=== PATIENT | female | born 1945 | race Hispanic/Latino ===

== ENCOUNTER 2017-05-12 09:13 | Inpatient (IN) | payer MEDICARE, OTHER ==
[2017-05-12] MEDS ORDERED: Acetaminophen 500 MG TAB ONE (09:34)
[2017-05-12] MEDS ORDERED: cefTRIAXone\\ROCEPHIN 2 GM, Admixture Fee 1 EACH in Sodium Chloride 0.9% 100 ML IVPB SCH (09:45)
--- OUTSIDE RECORDS SUMMARY | 2017-05-12 09:48 | XMS | Clinical Summary ---
:1945 Author Organization [facility] Address [address] [place] [address] Phone Care Team Providers Name Role Phone , Primary Care Provider Unavailable Allergies Not on File Current Medications Not on file Active Problems Not on file Social History Tobacco Use Types Packs/Day Years Used Date Never Assessed Sex Assigned at Date Recorded Not on file Last Filed Vital Signs Not on file Plan of Treatment Not on file Results Not on filefrom Last 3 Months
--- NOTE | 2017-05-12 09:50 | RAD ---
FRONTAL RADIOGRAPH CHEST: Date: 05/12/17 COMPARISON: 05/20/16. HISTORY: Dizziness and headache which began this morning. FINDINGS: There is a focal area of relatively dense nodularity overlying the mid right lung zone and the regio n of the anterior aspect of the right 3rd, 4th, and 5th ribs. These may represent new healing/healed rib fractures with prominent callus formation. There is no pneumothorax, pleural fluid, or lobar co nsolidation. There is a prominent superior end plate fracture of T12, not well assessed on this exam. IMPRESSION: 1. No lobar consolidation or alveolar edema. 2. Dense areas of nodularity seen in the mid right lung zone, likely on the basis of new healing/he aled rib fractures with associated prominent callus. As these are new findings, dedicated imaging ad vised to confirm rib fractures. Recommend dedicated right rib series. CODE T. POS: [facility]
[2017-05-12 09:55] LABS: Hematocrit 35.5 % (36.0-47.0); Mean Platelet Volume 9.8 fL (7.4-10.4); Red Blood Cell (RBC) Count 3.72 mill/uL (4.20-5.40); White Blood Cell (WBC) Count 18.4 thou/uL (4.8-10.8)
[2017-05-12 10:13] LABS: ALT (SGPT) 11 U/L (8-55); AST (SGOT) 24 U/L (5-34); Alkaline Phosphatase 53 U/L (40-150); Anion Gap 17 mmol/L (10-20); BUN (Urea Nitrogen) 37 mg/dL (9.8-20.1); Bilirubin, Total 0.7 mg/dL (0.2-1.2); Calc. Creatinine Clearance 0 mL/min (70-130); Calcium 9.3 mg/dL (7.8-10.44); Carbon Dioxide 15 mmol/L (23-31); Chloride 109 mmol/L (98-107); Estimated GFR-MDRD 32; Globulin 2.7 g/dL (2.4-3.5); Protein, Total 6.4 g/dL (6.0-8.3)
[2017-05-12 10:17] LABS: Band 19 % (5-11); Neutrophil 76 % (42-75)
--- NOTE | 2017-05-12 10:41 | CT ---
HEAD CT WITHOUT CONTRAST: 05/12/2017 HISTORY: Headache. Dizziness. TECHNIQUE: Serial axial CT imaging at 5 mm intervals, from the vertex through the skull base, without contrast. FINDINGS: There is mild periventricular hypodensity, suggesting a degree of small vessel disease. The imaged paranasal sinuses and mastoid air cells are well aerated. There is no displaced calvarial fracture. There is atherosclerotic calcification of the cavernous carotid arteries. There is no intracrania l hemorrhage, midline shift, mass effect, or ventricular enlargement. IMPRESSION: Findings suggesting small vessel disease. No intracranial hemorrhage. POS: [facility]
[2017-05-12 10:46] LABS: Lactic Acid - Sepsis 3.1 mmol/L (0.5-2.2)
[2017-05-12 11:02] LABS: Bilirubin Negative (Negative); Blood, Urine Small (Negative); Glucose, Urine (Dipstick) Negative (Negative); Ketone, Urine Negative (Negative); Nitrite Negative (Negative); Protein, Urine (Dipstick) 100 mg/dL (Neg-Trace); Urobilinogen 0.2 mg/dL (0.2-1.0)
[2017-05-12 11:08] LABS: Bacteria/HPF 4+ HPF (None Seen); Hyaline Casts/LPF 0-3 HYALINE CAST LPF (0-3 Hyaline); RBC/HPF 0-3 HPF (0-3); Squamous Epithelial None Seen HPF (0-3)
--- NOTE | 2017-05-12 13:43 | HP ---
PRIMARY CARE PHYSICIAN: Sergio Sen M.D. CHIEF COMPLAINT: Generally not feeling well, tired and having chills. HISTORY OF PRESENT ILLNESS: Ms. Burnett is a pleasant 71-year-old female that has a history of sys temic lupus erythematosus and hypertension. She was in her usual state of health until about 3 week s ago. She says she was diagnosed with urinary tract infection and was placed on 5 days worth of ci profloxacin. She says since then she has been feeling very tired and having diarrhea off and on, bu t she attributes this to irritable bowel syndrome. She also was complaining of a very bad headache and says that she could not even get up this morning. She felt shaky, nauseated and says that she w as coughing a lot. She has a history of having adrenal insufficiency as a result of being on long-t erm steroids and was afraid that this could be happening again and for this reason she came to the e mergency room for evaluation; however, it was found that she has a urinary tract infection or urine consistent with urinary tract infection as well as an elevated white blood cell count and fever and is being admitted for urosepsis. REVIEW OF SYSTEMS: CONSTITUTIONAL: She has had some subjective fever as well as chills, but no nig ht sweats, no weight loss. HEENT: She has had some headache, no dizziness, no visual changes, no s ore throat, rhinorrhea, no neck pain, no adenopathy. PULMONARY: She has had some dry cough, but no shortness of breath, no PND, no orthopnea. GASTROINTESTINAL: She has had some diarrhea off and on as well as some abdominal cramping and nausea, but no vomiting. GENITOURINARY: She denies any dys uria, but has had some urgency. No hematuria. MUSCULOSKELETAL: She complains of some generalized muscle aches. PSYCHIATRIC: No symptoms of anxiety or depression. SKIN/INTEGUMENT: No skin change s. No rash. NEUROLOGIC: She had no seizures or muscle weakness or focal weakness. PAST MEDICAL HISTORY: Significant for systemic lupus erythematosus, hypertension, osteoporosis, his tory of secondary adrenal insufficiency, left kidney mass which is benign and irritable bowel syndro me. PAST SURGICAL HISTORY: She has had a hysterectomy and splenectomy. ALLERGIES: To SULFATE and IRON, which is the IV IRON. SOCIAL HISTORY: She is , has 2 daughters and one son. She is a nonsmoker, nondrinker. FAMILY HISTORY: Significant for coronary artery disease and breast cancer. MEDICATIONS: Include CellCept, prednisone 30 mg daily, Forteo as directed, vitamin D, Plaquenil 200 mg in the morning and 100 in the evening as well as amlodipine and she says 1 other blood pressure medicine. PHYSICAL EXAMINATION: GENERAL: She is alert and oriented. She appears to be in no acute distress. VITAL SIGNS: Blood pressure initially was 153/73, heart rate 105, respiratory rate is 18, and tempe rature was 100.4. HEENT: Her pupils are equal, round, and reactive. Extraocular muscles are intact. Her sclerae are anicteric. Throat no erythema, no exudates. NECK: No adenopathy, no bruits. LUNGS: Clear. There is no wheezing, no rales. CARDIOVASCULAR: She has a normal S1 and S2. There is no S3 or S4. No murmurs, clicks or rubs. ABDOMEN: Soft, it is nontender, and nondistended. Positive for bowel sounds. No rebound, no guard ing. EXTREMITIES: There is no edema. NEUROLOGIC: The exam is nonfocal. LABORATORY DATA: White blood cell count 18.4, hemoglobin 11, hematocrit is 35.5, platelet count is 254. Sodium 137, potassium 3.7, chloride is 109, CO2 is 15, BUN of 37, creatinine 1.6, glucose is 7 9, lactic acid was elevated at 3.1. Urine had small leukocyte esterase, greater than 50 WBCs per hi gh power field and 4+ bacteria. ASSESSMENT AND PLAN: This is a 71-year-old female that presents with generalized weakness, malaise, chills and fever with urine consistent with urinary tract infection. She will be admitted for uros epsis. Since she appears to have failed an outpatient course of ciprofloxacin, she will be placed o n Rocephin. Hopefully, the urine cultures which have been done in the emergency room will yield an organism and aid with guiding therapy. Otherwise, she will likely have to be placed empirically on a different antibiotic regimen if she appears to be clinically improving.
[2017-05-12] MEDS ORDERED: traMADol HCl 50 MG TAB PO PRN (15:12)
[2017-05-12] MEDS ORDERED: Ondansetron HCl/PF 4 MG/2 ML Vial IVP PRN (15:12)
[2017-05-12] MEDS ORDERED: hydrALAZINE 20 MG/ML VIAL SLOW IVP PRN (15:12)
[2017-05-12] MEDS ORDERED: Ondansetron ODT 4 MG TAB PO PRN (15:12)
[2017-05-12 15:32] VITALS: BMI 21.9
[2017-05-12] MEDS ORDERED: Lorazepam 0.5 MG TAB PO PRN (15:37)
[2017-05-12] MEDS: Acetaminophen 325 MG TAB PO PRN ×2 (17:12→21:08)
[2017-05-12] MEDS: Sodium Chloride 0.9% 1,000 ML IV SCH (17:13)
[2017-05-12] MEDS ORDERED: FLU VACC TS2017-18 (>65YR) 0.5 ML SYRINGE IM ONE (21:00)
[2017-05-12] MEDS: Mycophenolate 250 MG CAP PO SCH (21:06)
[2017-05-13] MEDS: Sodium Chloride 0.9% 1,000 ML IV SCH (03:19)
[2017-05-13 05:26] LABS: #Eosinphils 0.1 thou/uL (0.0-0.7); #Lymphocytes 1.4 thou/uL (1.20-3.40); #Neutrophils 10.3 thou/uL (1.40-6.50); %Basophils 0.2 % (0.0-1.0); %Eosinophils 0.5 % (0.0-10.0); %Lymphocytes 10.9 % (21.0-51.0); %Monocytes 7.8 % (0.0-10.0); Hematocrit 33.9 % (36.0-47.0); Mean Platelet Volume 11.4 fL (7.4-10.4); Red Blood Cell (RBC) Count 3.51 mill/uL (4.20-5.40); White Blood Cell (WBC) Count 12.8 thou/uL (4.8-10.8)
[2017-05-13 05:44] LABS: Anion Gap 15 mmol/L (10-20); BUN (Urea Nitrogen) 29 mg/dL (9.8-20.1); Calc. Creatinine Clearance 33 mL/min (70-130); Calcium 8.2 mg/dL (7.8-10.44); Carbon Dioxide 15 mmol/L (23-31); Chloride 115 mmol/L (98-107); Estimated GFR-MDRD 43
[2017-05-13] MEDS: Acetaminophen 325 MG TAB PO PRN ×3 (06:53→21:36)
[2017-05-13] MEDS ORDERED: TERIPARATIDE 20 MCG SC SCH (09:00)
[2017-05-13] MEDS ORDERED: Teriparatide [Forteo] 20 MCG PO SCH ×2 (09:00)
[2017-05-13] MEDS ORDERED: predniSONE 1 MG/ML ML PO SCH (09:00)
[2017-05-13] MEDS ORDERED: Non-Formulary Item 1 EACH (Cholecalciferol (Vitamin D3) [Vitamin D3] 5,000 UNIT) PO SCH (09:00)
[2017-05-13] MEDS: Hydroxychloroquine Sulfate 200 MG TAB PO SCH ×2 (09:11→21:27)
[2017-05-13] MEDS: Famotidine 20 MG TAB PO SCH (09:11)
[2017-05-13] MEDS: Amlodipine 10 MG TAB PO SCH (09:11)
[2017-05-13] MEDS: Enoxaparin Sodium 30 MG/0.3 ML SYRINGE SC SCH (09:12)
[2017-05-13] MEDS: Mycophenolate 250 MG CAP PO SCH ×2 (10:15→21:27)
[2017-05-13] MEDS: predniSONE 1 MG TAB PO SCH (11:17)
[2017-05-13] MEDS: predniSONE 5 MG TAB PO SCH (11:17)
[2017-05-13] MEDS: cefTRIAXone\\ROCEPHIN 2 GM, Admixture Fee 1 EACH in Sodium Chloride 0.9% 100 ML IVPB SCH (12:41)
--- NOTE | 2017-05-13 13:55 | PDOC.PN ---
- Subjective Encounter Start Date: 05/13/17 Encounter Start Time: 10:45 -: old records requested/rev Patient seen and examined. No new complaints. No overnight events - Objective Resuscitation Status: Resuscitation Status FULL:Full Resuscitation MAR Reviewed: Yes Vital Signs & Weight: Vital Signs (12 hours) Temp Pulse Resp BP BP Pulse Ox 05/13/17 11:37 98.2 F 93 16 154/76 H 93 L 05/13/17 09:11 77 149/77 H 05/13/17 07:19 98.3 F 77 16 149/77 H 93 L 05/13/17 04:55 98.2 F 74 18 146/73 H 94 L Weight Admit Weight 108 lb 9.6 oz Weight 108 lb 9.6 oz I&O: 05/12/17 05/13/17 05/14/17 06:59 06:59 06:59 Intake Total 2430 240 Balance 2430 240 Result Diagrams: 05/13/17 04:52 05/13/17 04:52 Phys Exam - Physical Examination Constitutional: NAD HEENT: PERRLA, moist MMs, sclera anicteric Neck: no JVD, supple Respiratory: no wheezing, no rales, no rhonchi Cardiovascular: RRR, no significant murmur, no rub Gastrointestinal: soft, non-tender, no distention, positive bowel sounds Musculoskeletal: no edema, pulses present Neurological: non-focal, normal sensation, moves all 4 limbs Lymphatic: no nodes Psychiatric: normal affect, A&O x 3 Skin: no rash, normal turgor Dx/Plan (1) Acute worsening of stage 3 chronic kidney disease Code(s): N18.3 - CHRONIC KIDNEY DISEASE, STAGE 3 (MODERATE) Status: Acute (2) Lactic acidosis Code(s): E87.2 - ACIDOSIS Status: Acute (3) UTI (urinary tract infection) Status: Acute (4) GERD (gastroesophageal reflux disease) Code(s): K21.9 - GASTRO-ESOPHAGEAL REFLUX DISEASE WITHOUT ESOPHAGITIS Status: Chronic (5) Hyperlipidemia Code(s): E78.5 - HYPERLIPIDEMIA, UNSPECIFIED Status: Chronic (6) Hypertension Code(s): I10 - ESSENTIAL (PRIMARY) HYPERTENSION Status: Chronic (7) SLE (systemic lupus erythematosus) Code(s): M32.9 - SYSTEMIC LUPUS ERYTHEMATOSUS, UNSPECIFIED Status: Chronic - Plan cont current plan of care, continue antibiotics * continue IV rocephin * continue IVF, heplcok IV after current bag * follow urine culture * medication reviewed as below * symptomatic treatment. Review of Systems - Review of Systems ENT: negative: Ear Pain, Ear Discharge, Nose Pain, Nose Discharge, Nose Congestion, Mouth Pain, Mouth Swelling, Throat Pain, Throat Swelling, Other Respiratory: negative: Cough, Dry, Shortness of Breath, Hemoptysis, SOB with Excertion, Pleuritic Pain, Sputum, Wheezing Cardiovascular: negative: Chest Pain, Palpitations, Orthopnea, Paroxysmal Noc. Dyspnea, Edema, Light Headedness, Other Gastrointestinal: negative: Nausea, Vomiting, Abdominal Pain, Diarrhea, Constipation, Melena, Hematochezia, Other Genitourinary: negative: Dysuria, Frequency, Incontinence, Hematuria, Retention , Other Musculoskeletal: negative: Neck Pain, Shoulder Pain, Arm Pain, Back Pain, Hand Pain, Leg Pain, Foot Pain, Other Skin: negative: Rash, Lesions, Surya, Bruising, Other - Medications/Allergies Allergies/Adverse Reactions: Allergies Allergy/AdvReac Type Severity Reaction Status Date / Time iron Allergy Severe Rash Verified 05/23/16 10:45 Sulfa (Sulfonamide Allergy Severe Rash Verified 01/31/14 12:16 Antibiotics) Medications: Current Medications Acetaminophen (Tylenol) 650 mg PO Q4H PRN PRN Reason: Headache/Fever or Pain Last Admin: 05/13/17 06:53 Dose: 650 mg Amlodipine Besylate (Norvasc) 20 mg PO DAILY [facility] Last Admin: 05/13/17 09:11 Dose: 20 mg Aspirin (Aspirin Chewable) 81 mg PO DAILY [facility] Last Admin: 05/13/17 09:11 Dose: 81 mg Calcitriol (Rocaltrol) 0.25 mcg PO MWF@0900 [facility] Cholecalciferol (Vitamin D3) 5,000 units PO DAILY [facility] Last Admin: 05/13/17 09:10 Dose: 5,000 units Enoxaparin Sodium (Lovenox) 30 mg SC 0900 [facility] Last Admin: 05/13/17 09:12 Dose: 30 mg Famotidine (Pepcid) 20 mg PO DAILY [facility] Last Admin: 05/13/17 09:11 Dose: 20 mg Hydralazine HCl (Apresoline) 10 mg SLOW IVP Q4H PRN PRN Reason: Systolic BP > 180 Hydroxychloroquine Sulfate (Plaquenil) 200 mg PO BID [facility] Last Admin: 05/13/17 09:11 Dose: 200 mg Ceftriaxone Sodium 2 gm/Miscellaneous Medication 1 each/ Sodium Chloride 100 mls @ 200 mls/hr IVPB Q24HR@1100 [facility] Last Admin: 05/13/17 12:41 Dose: 100 mls Lorazepam (Ativan) 0.25 mg PO Q4H PRN PRN Reason: Anxiety/Agitation Metoprolol Succinate (Toprol Xl) 25 mg PO DAILY [facility] Last Admin: 05/13/17 09:11 Dose: 25 mg Mycophenolate Mofetil (Cellcept) 1,000 mg PO BID [facility] Last Admin: 05/13/17 10:15 Dose: 1,000 mg Ondansetron HCl (Zofran Odt) 4 mg PO Q6H PRN PRN Reason: Nausea/Vomiting Ondansetron HCl (Zofran) 4 mg IVP Q6H PRN PRN Reason: Nausea/Vomiting Teriparatide [Forteo (] 20 Mcg) 0 each PO DAILY [facility] Prednisone (Prednisone) 10 mg PO DAILY [facility] Last Admin: 05/13/17 11:17 Dose: 10 mg Prednisone (Prednisone) 3 mg PO DAILY [facility] Last Admin: 05/13/17 11:17 Dose: 3 mg Sodium Chloride (Flush - Normal Saline) 10 ml IVF Q12HR [facility] Last Admin: 05/13/17 09:14 Dose: Not Given Sodium Chloride (Flush - Normal Saline) 10 ml IVF PRN PRN PRN Reason: Saline Flush Last Admin: 05/13/17 12:41 Dose: 10 ml Tramadol HCl (Ultram) 50 mg PO Q4H PRN PRN Reason: Moderate Pain (4-6)
[2017-05-14] MEDS: predniSONE 5 MG TAB PO SCH (08:32)
[2017-05-14] MEDS: Famotidine 20 MG TAB PO SCH (08:33)
[2017-05-14] MEDS: predniSONE 1 MG TAB PO SCH (08:33)
[2017-05-14] MEDS: Hydroxychloroquine Sulfate 200 MG TAB PO SCH (08:33)
[2017-05-14] MEDS: Amlodipine 10 MG TAB PO SCH (08:33)
[2017-05-14] MEDS: Mycophenolate 250 MG CAP PO SCH (08:34)
[2017-05-14] MEDS: Enoxaparin Sodium 30 MG/0.3 ML SYRINGE SC SCH (08:35)
[2017-05-14] MEDS ORDERED: Calcitriol 0.25 MCG CAP PO SCH (09:00)
[2017-05-14] MEDS ORDERED: CALCITRIOL 0.25 MCG PO SCH (09:00)
--- NOTE | 2017-05-14 09:55 | PQF ---
CLINICAL DOCUMENTATION IMPROVEMENT CLARIFICATION FORM: ICD-10 Updated PLEASE DO AN ADDENDUM TO THE PROGRESS NOTE WITH ANY DOCUMENTATION UPDATES OR ADDITIONS AND CARRY THROUGH TO DC SUMMARY. THANK YOU. DATE: 05/14 ATTN: DR. ESTEBAN LR Please exercise your independent, professional judgment in responding to the clarification form. Clinical indicators are provided on the bottom of this form for your review Please check appropriate box(s): [ x ] Sepsis due to: (Pna, UTI, gangrenous gall bladder, etc.) _UTI [ ] Localized infection without sepsis [ ] Other diagnosis [ ] Unable to determine For continuity of documentation, please document condition throughout progress notes and discharge summary. Thank You. CLINICAL INDICATORS - SIGNS / SYMPTOMS / LABS ER PRESENTATION 05/12: T: 100.4 NH: 105 WBC: 18.4 LACTIC ACID: 3.1 ER PHYSICIAN DIAGNOSES DOCUMENTATION 05/12: UROSEPSIS, FEVER, STEPHENS, LEUKOCYTOSIS PHYSICIAN H&P DOCUMENTATION 05/12: HX OF PRESENT ILLNESS: ...IT WAS FOUND SHE HAS A UTI OR URINE CONSISTENT WITH UTI WELL ELEVATED WBC COUNT & FEVER & IS BEING ADMITTED FOR UROSEPSIS ASSESSMENT & PLAN: SHE WILL BE ADMITTED FOR UROSEPSIS RISK FACTOR: UTI - E COLI (FAILED OUTPT TREATMENT) ELEVATED WBC LACTIC ACIDOSIS TREATMENTS: IV ANTIBIOTIC (ROCEPHIN 05/12 - PRESENT) IVF (NS 05/12 - ) THANK YOU! Bobbi (This form is maintained as a part of the permanent medical record) 2014 [employer]. All Rights Reserved Bobbi Johnson RN, BSN [email or web address] Office: [phone] [facility]
[2017-05-14 10:01] LABS: Anion Gap 17 mmol/L (10-20); BUN (Urea Nitrogen) 22 mg/dL (9.8-20.1); Calc. Creatinine Clearance 30 mL/min (70-130); Calcium 8.7 mg/dL (7.8-10.44); Carbon Dioxide 15 mmol/L (23-31); Chloride 108 mmol/L (98-107); Estimated GFR-MDRD 38
[2017-05-14 10:14] LABS: Acanthocytes SLIGHT = 1-5 cells (100X) (None Seen); Band 7 % (5-11); Burr Cells MODERATE= 6-15 cells (100X) (0-1/hpf); Hematocrit 35.5 % (36.0-47.0); Metamyelocyte 1 % (0-0); Neutrophil 69 % (42-75); Reactive Lymphocytes 2 % (0-10); Red Blood Cell (RBC) Count 3.73 mill/uL (4.20-5.40); Schistocytes MODERATE= 6-15 cells (100X) (0-1/hpf); White Blood Cell (WBC) Count 9.4 thou/uL (4.8-10.8)
[2017-05-14] MEDS: cefTRIAXone\\ROCEPHIN 2 GM, Admixture Fee 1 EACH in Sodium Chloride 0.9% 100 ML IVPB SCH (10:28)
[2017-05-14] MEDS ORDERED: Potassium Chloride 20 MEQ TAB PO SCH (10:30)
--- NOTE | 2017-05-14 13:01 | DIS ---
DATE OF ADMISSION: 05/12/2017 DATE OF DISCHARGE: 05/14/2017 PRIMARY CARE PHYSICIAN: [facility] call admission. DISCHARGE DISPOSITION: Home. PRIMARY DISCHARGE DIAGNOSES: Acute on chronic kidney failure, baseline chronic kidney disease stage 3, lactic acidosis, sepsis due to urinary tract infection. SECONDARY DISCHARGE DIAGNOSES: Systemic lupus erythematosus, hypertension, secondary adrenal insuff iciency, dyslipidemia, gastroesophageal reflux disease, chronic kidney disease stage 3. PRIMARY PROCEDURE/OPERATION: None. RADIOLOGICAL INVESTIGATION: Chest x-ray, CT brain. SIGNIFICANT LABS: Hemoglobin 11.0, creatinine 1.38. Cortisol 1.90. LFTs normal. Lactic acid 0.8. Urine culture grew E. coli. Blood culture negative. DISCHARGE MEDICATIONS: Macrobid 100 mg p.o. b.i.d. for 10 days, amlodipine 20 mg p.o. daily, aspiri n 81 mg p.o. daily, Excedrin one tablet p.r.n., calcitriol 0.25 mcg p.o. Friday, Friday, Friday, vitamin D3 5000 units p.o. daily, Plaquenil 200 mg p.o. b.i.d., Toprol-XL 25 mg p.o. daily, CellCept 1000 mg p.o. b.i.d., Forteo 20 mcg subQ daily, prednisone 30 mg p.o. daily. CONTRAINDICATIONS: None. CODE STATUS: FULL CODE. INPATIENT CONSULTANTS: None. ALLERGIES: IRON and SULFA DRUGS. DISCHARGE PLAN: Post hospital, the patient is discharged to home. Patient will follow up with [facility] physician. HOSPITAL COURSE: A 71-year-old female who was admitted for urinary tract infection. She had acute on chronic kidney failure. She had lactic acidosis. The patient was given IV fluids. Her renal fu nction was stable. Her leukocytosis improved. Her urine culture grew E. coli and based on culture and sensitivity result, we changed to Omnicef on discharge. The patient was given Rocephin while in hospital. The patient was doing very well while in hospital. She was expressed her wish to go cinda e today. The patient is seen and examined at bedside today. PHYSICAL EXAMINATION: VITAL SIGNS: Currently, temperature 98.3, pulse 88, respiratory rate 16, saturation 94%, blood pres sure 135/76. Weight 108 pounds. GENERAL: The patient is alert, awake, no acute distress. LUNGS: Clear. CARDIAC: S1, S2 regular without any murmur. ABDOMEN: Soft and benign. EXTREMITIES: No edema. NEUROLOGIC: Nonfocal examination.
[2017-05-14 13:20] VITALS: BP 136/72; TEMP 98.2
--- NOTE | 2017-05-24 14:17 | EKG ---
Test Reason : Blood Pressure : / mmHG Vent. Rate : 101 BPM Atrial Rate : 101 BPM P-R Int : 120 ms QRS Dur : 116 ms QT Int : 362 ms P-R-T Axes : 053 072 026 degrees QTc Int : 469 ms Sinus tachycardia Right bundle branch block Abnormal ECG Confirmed by ROBERT DIALLO ([id number]), editorial specialist XAVIER HERNÁNDEZ ([id number]) on 05/24/2017 2:17:00 PM Referred By: Confirmed By:ROBERT DIALLO
== END 2017-05-14 13:42 | disposition home or self-care (01) | DRG 872 ==
LOC: ERS 09:13 → T4-B 11:45
PROVIDERS: ADMIT Internal Medicine; ATTEND Internal Medicine
DX: A41.9 Sepsis, unspecified organism (principal); N17.9 Acute kidney failure, unspecified; E87.2 Acidosis; M32.9 Systemic lupus erythematosus, unspecified; N18.3 Chronic kidney disease, stage 3 (moderate); E27.49 Other adrenocortical insufficiency; N39.0 Urinary tract infection, site not specified; B96.20 Unspecified Escherichia coli [E. coli] as the cause of diseases classified elsewhere; I12.9 Hypertensive chronic kidney disease with stage 1 through stage 4 chronic kidney disease, or unspecified chronic kidney disease; K58.9 Irritable bowel syndrome, unspecified; M81.0 Age-related osteoporosis without current pathological fracture; E78.5 Hyperlipidemia, unspecified; K21.9 Gastro-esophageal reflux disease without esophagitis; N28.89 Other specified disorders of kidney and ureter; Z88.8 Allergy status to other drugs, medicaments and biological substances; Z90.710 Acquired absence of both cervix and uterus; Z90.81 Acquired absence of spleen
CPT/HCPCS: 36415; 51701; 70450; 71010; 80048; 80053; 81003; 81015; 82533; 83605; 85025; 85060; 87040; 87077; 87086; 87186; 90471; 90682; 93005; 96361; 96365; A4216; G0008; J0696; J1650; J7050; J7517; Q2036

== ENCOUNTER 2017-06-06 09:53 | Inpatient (IN) | payer MEDICARE, OTHER ==
[2017-06-06] MEDS ORDERED: Acetaminophen 500 MG TAB ONE (10:10)
--- NOTE | 2017-06-06 10:45 | RAD ---
PORTABLE UPRIGHT FRONTAL CHEST: Date: 06/06/17 COMPARISON: 05/20/16. HISTORY: Fever, bladder infection. FINDINGS: There is a mild focal area of increased density in the left cardiophrenic angle, which may represent a nodule, volume loss, or infiltrate. There is a questionable nodular density in the right upper lobe overlying the anterior aspect of the right third rib. There is also a questionable nodular density in the mid right lung zone, new. IMPRESSION: Nodular densities are noted in the right upper lobe/mid right lung zone region and the medial left osmin ng base. Follow-up imaging is advised. Recommend PA/lateral imaging of the chest for further assessme nt. Alternatively, CT may be beneficial. CODE T. POS: [facility]
[2017-06-06 11:13] LABS: Lactic Acid - Sepsis 3.8 mmol/L (0.5-2.2)
[2017-06-06 11:14] LABS: ALT (SGPT) 12 U/L (8-55); AST (SGOT) 26 U/L (5-34); Alkaline Phosphatase 70 U/L (40-150); Anion Gap 20 mmol/L (10-20); BUN (Urea Nitrogen) 44 mg/dL (9.8-20.1); Band 25 % (5-11); Bilirubin, Total 0.7 mg/dL (0.2-1.2); CK (CPK) 30 U/L (29-168); Calc. Creatinine Clearance 0 mL/min (70-130); Calcium 10.3 mg/dL (7.8-10.44); Carbon Dioxide 16 mmol/L (23-31); Chloride 103 mmol/L (98-107); Crenated RBC SLIGHT = 1-5 cells (100X) (None Seen); Estimated GFR-MDRD 23; Globulin 2.8 g/dL (2.4-3.5); Hematocrit 35.3 % (36.0-47.0); Lipase 218 U/L (8-78); Mean Platelet Volume 10.8 fL (7.4-10.4); Neutrophil 69 % (42-75); Protein, Total 6.9 g/dL (6.0-8.3); Red Blood Cell (RBC) Count 3.68 mill/uL (4.20-5.40); Schistocytes SLIGHT = 2-5 cells (100X) (0-1/hpf); White Blood Cell (WBC) Count 22.3 thou/uL (4.8-10.8)
[2017-06-06 11:18] LABS: Troponin I 0.073 ng/mL (< 0.028)
[2017-06-06 12:29] LABS: Bilirubin Negative (Negative); Blood, Urine Trace (Negative); Glucose, Urine (Dipstick) Negative (Negative); Ketone, Urine Negative (Negative); Nitrite Positive (Negative); Protein, Urine (Dipstick) 100 mg/dL (Neg-Trace); Urobilinogen 0.2 mg/dL (0.2-1.0)
[2017-06-06 12:31] LABS: Bacteria/HPF 4+ HPF (None Seen); Hyaline Casts/LPF 0-3 HYALINE CAST LPF (0-3 Hyaline); RBC/HPF None Seen HPF (0-3); Squamous Epithelial None Seen HPF (0-3); WBC/HPF 21-50 HPF (0-3)
[2017-06-06] MEDS ORDERED: cefTRIAXone\\ROCEPHIN 2 GM in Sodium Chloride 0.9% 100 ML IVPB ONE (12:45)
[2017-06-06 14:00] LABS: Troponin I 0.475 ng/mL (< 0.028)
--- NOTE | 2017-06-06 14:28 | HP ---
CHIEF COMPLAINT: Feeling feverish with chills and having shortness of breath. HISTORY OF PRESENT ILLNESS: The patient is a 71-year-old female who started having some chi lls and she was feeling feverish this morning. She noticed also that she had some shortness of breat h and her heart was racing. She did not have any nausea or vomiting or abdominal pain. She did not have any diarrhea. She called EMS and she was transferred to the Emergency Room in [place] at [facility] where she was found to be very tachycardic in her pulse was in the 160 range and abov e. She required fluid resuscitation to get her tachycardia down to 120s. She had some pains on and off in her body all over, but this is most likely related to her lupus erythematous disease. She had similar admission 3 weeks ago when she was diagnosed with urinary tract infection caused by E. coli, was treated in the hospital for a day and discharged home on Macrobid 100 mg twice a day for 10 day s. She finished her treatment and went to Dr. Sen who is her primary care physician and her urine was checked and it was clear, so she was doing relatively well until this morning when all the probl ems came back. Since her appetite was not that good during this time from the last discharge, she wa s trying to drink some Ensure, a couple of cans a day. Also, she had urinary tract infection in [facility] and she was treated with ciprofloxacin by Dr. Hernandez, her primary urologist. PAST MEDICAL HISTORY: 1. Systemic lupus erythematosus. 2. Hypertension. 3. Osteoporosis. 4. Secondary adrenal insufficiency. 5. Left kidney mass which is benign. 6. Irritable bowel syndrome. 7. History of left ovarian mass. 8. Ulceration of the intestine. PAST SURGICAL HISTORY: 1. Hysterectomy. 2. Splenectomy. 3. Left ovarian mass removal. ALLERGIES: SULFA and IRON. SOCIAL HISTORY: She denies any alcohol drinking, cigarette smoking, use of any illicit drugs. She i s for more than 15 years and she has 2 daughters and a son. FAMILY HISTORY: Her father was 72 when he had a heart attack and he passed, and her mother had breas t cancer and she passed at the age 66. CURRENT MEDICATIONS: Amlodipine 20 mg once a day, Excedrin 1 tablet p.r.n. for the headache, Calcitr iol 0.25 mcg p.o. 3 times a week, vitamin D3 5000 units once a day, Plaquenil 200 mg twice a day, Top rol-XL 20 mg daily, CellCept 1000 mg twice a day, Forteo 20 mcg subcutaneous injections daily, predni sone 19 mg once a day. CODE STATUS: FULL. Surrogate decision maker, Aleta Alves, her daughter. REVIEW OF SYSTEMS: CONSTITUTIONAL: Positive for fever and chills. EYES: Negative for eye pain and eye discharge. ENT: Negative for nasal congestion and epistaxis. Positive for headaches. RESPIRATORY: Positive for some shortness of breath. Negative for cough. CARDIOVASCULAR: Positive for heart palpitations. Negative for chest pain. GASTROINTESTINAL: Positive for some diarrhea on and off since she has irritable bowel syndrome. GENITOURINARY: Positive for several infections in her urinary tract. MUSCULOSKELETAL: Positive for muscle aches and joint pains quite often almost on daily basis. HEME/LYMPHATIC: Positive for some bruising. PSYCHIATRIC: Negative for anxiety or depression. NEUROLOGIC: Negative for seizures and any focal deficits. PHYSICAL EXAMINATION: VITAL SIGNS: Blood pressure is 186/93, pulse is 116, respiratory rate is 22, pulse oximetry is 96% o n room air. HEENT: Head is normocephalic, atraumatic. Her skin is palish. Eyes: Pupils are responding to ligh t properly. Sclerae nonicteric, conjunctivae palish. Oral mucosa is somewhat dry. NECK: Supple, no lymphadenopathy. Thyroid is not palpable. LUNGS: Clear. HEART: S1, S2, tachycardic. No S3, no S4. ABDOMEN: Soft, nontender, bowel sounds are present, no organomegaly. EXTREMITIES: No clubbing, cyanosis or edema. NEUROLOGIC: She is alert and oriented x4. There is not any sensory or motor deficits present. Cran ial nerves are intact. LABORATORY AND X-RAY FINDINGS: Showed white count of 22.3, hemoglobin 11.2, hematocrit 35.3, platele t count is 234, bands 25, sodium 135, potassium 3.8, chloride 103, CO2 16, BUN 44, creatinine 2.16. Lactic acid 3.8, troponin 0.073, lipase 218. The rest of chemistry within normal limits. Urinalysis showed 100 of protein, trace of blood, positive nitrite, small amount of leukocyte esterase, 21-50 W BCs and 4+ bacteria on the scope. The rest of urinalysis within normal limits. Chest x-ray personally reviewed by me. It showed no infiltrates, but there was some nodular densitie s in the right upper and mid lung zone and in the medial left lung base. EKG showed a 12-lead showed sinus tachycardia with 162 beats per minute with no ectopics. There was complete right bundle branc h block. There is ST depression in inferior leads and lateral leads, T-waves are normal, axis is rig ht deviation. IMPRESSION: 1. Sepsis. Most likely urinary tract origin. She had a very similar presentation approximately 3 w eeks ago. Her urine culture grew Escherichia coli. 2. Tachycardia, which was the problem after the discharge from the hospital and she presented with s ignificant tachycardia during this ER evaluation. We will obtain Cardiology consultation for that pu rpose since she was set up to see sexologist on an outpatient basis 3. Acute on chronic renal insufficiency with her creatinine baseline at 1.3. Currently, creatinine is 2.16. 4. Osteoporosis. 5. Immunocompromised status since she is on prednisone and she is status post splenectomy. 6. History of secondary adrenal insufficiency. 7. Left kidney mass which is status post biopsy, benign. 8. Irritable bowel syndrome. 9. History of left ovarian mass, status post removal. 10. Elevated troponin I, most likely secondary to stress on demand secondary to her extreme tachycar elena. 11. Hyponatremia, mild. 12. Elevated lactate, which is most likely secondary to sepsis. This should improve with IV hydrati on and IV antibiotics. PLAN: The plan is to admit her full to IMCU. She is high risk for complications. She received Roce phin and gentamicin in the emergency room. I am going to switch her to meropenem and vancomycin. We will follow up cultures on her urine and blood. She will continue on intravenous fluids. She recei gayla almost 2 liters of IV fluids in the emergency room. She is still tachycardic, but it is signific antly improved. We will treat her with p.o. Tylenol for fever. I am not going to give her any hepa rin since she had a severe thrombocytopenia in the past which required a splenectomy, so we will keep her on SCDs for deep venous thrombosis prophylaxis and H2 lisa for PUD prophylaxis.
[2017-06-06] MEDS ORDERED: Sodium Chloride 0.9% 1,000 ML IV SCH (14:51)
[2017-06-06] MEDS ORDERED: Acetaminophen 325 MG TAB PO PRN (14:51)
[2017-06-06] MEDS ORDERED: hydrALAZINE 20 MG/ML VIAL SLOW IVP PRN (16:29)
[2017-06-06] MEDS ORDERED: Ondansetron HCl/PF 4 MG/2 ML Vial IVP PRN (16:29)
[2017-06-06] MEDS ORDERED: Meropenem 500 MG in Sodium Chloride 0.9% 100 ML IVPB SCH (16:29)
[2017-06-06 16:51] LABS: Troponin I 0.497 ng/mL (< 0.028)
[2017-06-06 17:06] VITALS: BMI 23.2
[2017-06-06] MEDS: Sodium Chloride 0.9% 1,000 ML IV SCH (18:57)
[2017-06-06] MEDS: Meropenem 500 MG, Admixture Fee 1 EACH in Sterile Water 10 ML SLOW IVP SCH (18:58)
[2017-06-06] MEDS ORDERED: FLU VACC TS2017-18 (>65YR) 0.5 ML SYRINGE IM ONE (21:00)
[2017-06-07] MEDS: Meropenem 500 MG, Admixture Fee 1 EACH in Sterile Water 10 ML SLOW IVP SCH ×3 (01:17→16:40)
[2017-06-07] MEDS: Sodium Chloride 0.9% 1,000 ML IV SCH ×3 (03:27→23:15)
[2017-06-07] MEDS: Acetaminophen 325 MG TAB PO PRN ×2 (04:47→13:33)
[2017-06-07 06:23] LABS: Anion Gap 12 mmol/L (10-20); BUN (Urea Nitrogen) 27 mg/dL (9.8-20.1); Calc. Creatinine Clearance 32 mL/min (70-130); Calcium 8.1 mg/dL (7.8-10.44); Carbon Dioxide 18 mmol/L (23-31); Chloride 111 mmol/L (98-107); Estimated GFR-MDRD 40
[2017-06-07 06:29] LABS: Anisocytosis MODERATE=16-30 cells (100X) (0-5/hpf); Band 4 % (5-11); Hematocrit 31.1 % (36.0-47.0); Mean Platelet Volume 11.2 fL (7.4-10.4); Neutrophil 93 % (42-75); Red Blood Cell (RBC) Count 3.17 mill/uL (4.20-5.40); White Blood Cell (WBC) Count 12.1 thou/uL (4.8-10.8)
[2017-06-07] MEDS ORDERED: Heparin 1,000 UNITS/ML VIAL ONE (09:00)
[2017-06-07] MEDS: Famotidine 20 MG TAB PO SCH (09:44)
--- NOTE | 2017-06-07 10:43 | PDOC.PN ---
- Subjective Encounter Start Date: 06/07/17 Encounter Start Time: 10:42 Ms. Burnett was seen today in follow-up of UTI with sepsis. She says she feels a little jose david, but is still very weak, and has a poor appetite. - Objective Resuscitation Status: Resuscitation Status FULL:Full Resuscitation MAR Reviewed: Yes Vital Signs & Weight: Vital Signs (12 hours) Temp Pulse Resp BP Pulse Ox 06/07/17 07:37 97.8 F 95 18 94 L 06/07/17 07:36 97.8 F 95 18 157/75 H 94 L 06/07/17 06:15 98.0 F 102 H 20 159/75 H 92 L 06/06/17 23:35 98.0 F 97 16 149/72 H 93 L Weight Weight 111 lb 8 oz I&O: 06/06/17 06/07/17 06/08/17 06:59 06:59 06:59 Intake Total 1566 Output Total 1400 Balance 166 Result Diagrams: 06/07/17 05:22 06/07/17 05:22 Phys Exam - Physical Examination Respiratory: no wheezing, no rales, no rhonchi, clear to auscultation bilateral Cardiovascular: RRR, no significant murmur Gastrointestinal: soft, non-tender, positive bowel sounds Musculoskeletal: no edema Dx/Plan (1) Sepsis Code(s): A41.9 - SEPSIS, UNSPECIFIED ORGANISM Status: Acute (2) UTI (urinary tract infection) Status: Acute (3) Hypertension Code(s): I10 - ESSENTIAL (PRIMARY) HYPERTENSION Status: Chronic (4) SLE (systemic lupus erythematosus) Code(s): M32.9 - SYSTEMIC LUPUS ERYTHEMATOSUS, UNSPECIFIED Status: Chronic (5) Acute kidney injury Code(s): N17.9 - ACUTE KIDNEY FAILURE, UNSPECIFIED Status: Acute - Plan * UTI with sepsis, and acute kidney failure- patient has improved overnight * Urine culture is growing a gram negative oswaldo- will continue meropenem * She was only recently admitted with a severe UTI - will check a post void residual, and consult ID to help with the choice of the optimum antibiotic * SLE- patient says she had been on Prednisone at 13mg a day, but this has since been increased to 20mg a day * HTN- blood pressure is elevated- will re-start her home medications. * LUIS FELIPE- improving with treatment of UTI
--- NOTE | 2017-06-07 15:51 | CON ---
CARDIOLOGY CONSULTATION DATE OF CONSULTATION: 06/07/2017 REASON FOR CONSULTATION: Elevated troponins. HISTORY OF PRESENT ILLNESS: Ms. Burnett is a very pleasant 71-year-old female, who comes t o the hospital for fever and chills. She was found to be in sepsis, she was tachycardic, had a fever and her tachycardia responded to IV fluids. She was found to have urinary tract infection, which sh e has been battling for at least the last month or so and this is most likely recurrence during her a dmission, troponins were drawn under mildly elevated, so Cardiology is being consulted. In talking w ith Ms. Burnett, she denies any chest pain, any chest pressure, but she admits to little tightness w hen she lays down on her back and gets better when she sits back up. Her breathing also has been a l ittle more difficult lately, on my evaluation today walked into her room and she is lying flat on her back without any discomfort whatsoever. PAST MEDICAL HISTORY: 1. Lupus SLE. She has been dealing with this for the last 15 years. 2. Hypertension. 3. Osteoporosis. 4. Secondary to renal insufficiency. 5. Left kidney mass, benign. 6. Irritable bowel syndrome. 7. Left ovarian mass. 8. History of ulceration in the intestine. 9. History of lupus nephritis. PAST SURGICAL HISTORY: 1. Hysterectomy. 2. Splenectomy. 3. Left ovarian mass removal. OUTPATIENT MEDICATIONS: Include; 1. Amlodipine 10 mg a day. 2. Excedrin p.r.n. 3. Calcitriol. 4. Vitamin D3. 5. Plaquenil 200 mg twice a daily. 6. Toprol-XL 25 mg p.o. daily. 7. CellCept 1000 mg twice a day. 8. Forteo 20 mcg subQ daily. 10. Prednisone 20 mg a day. ALLERGIES: SULFA DRUGS and IRON. SOCIAL HISTORY: No alcohol, tobacco or drugs. FAMILY HISTORY: Father from an [place] at 72. Mother had breast cancer and at 66 . REVIEW OF SYSTEMS: A 12-point review of systems was done and is all negative unless stated in the hi story of present illness. PHYSICAL EXAMINATION: VITAL SIGNS: Temperature 98.0, pulse 102, respiratory rate 18, satting 97% on 2 liters, blood pressu re 155/73. GENERAL: Awake, alert, oriented x3, in no distress. HEENT: Normocephalic, atraumatic. NECK: Supple. LUNGS: Clear. CARDIOVASCULAR: S1, S2, no S3 or S4, no murmurs, no rubs. ABDOMEN: Soft, positive bowel sounds. EXTREMITIES: No edema. SKIN: Warm and dry. LABORATORY WORK: Reviewed. White count of 22 on admission with 25% bands, hemoglobin of 11.2 down t o 9.5 after IV hydration and platelet count of 178. Chemistry with a creatinine of 2.1 on admission, back down to 1.3 with hydration, and sodium and potassium were normal. Troponin was 0.07, 0.47 and 0.49. Lipase was 218 and albumin of 4.1. UA was cloudy with positive nitrites, trace blood, 21-50 w tasha cells, and 4+ bacteria. Urine culture showed gram negative rods so far. Awaiting for sensitivi ties and identification of the bacteria. Chest x-ray shows nodular densities in the right upper lobe, mid right lung zone and in the medial le ft lung base. No heart failure. No infiltrate. EKG was reviewed. ASSESSMENT AND PLAN: 1. Non-ST elevation myocardial infarction: Most likely demand ischemia from her septic type picture . 2. Urinary tract infection. 3. Systemic lupus erythematosus. 4. History of renal nephropathy. PLAN: 1. Continue conservative management for now. Most likely, her elevated troponin is related to her s evere complicated urinary tract infection. 2. We will get an echocardiogram in-house and we will plan on doing an outpatient evaluation with st ress testing once she is over her urinary tract infections. No indication for anticoagulation at thi s time. Thank you for letting us participate in the care of your patient. We will follow.
[2017-06-07] MEDS: Hydroxychloroquine Sulfate 200 MG TAB PO SCH (20:41)
[2017-06-07] MEDS ORDERED: MYCOPHENOLATE MOFETIL 1000 MG PO SCH (21:00)
[2017-06-07] MEDS: Mycophenolate 250 MG CAP PO SCH (23:16)
[2017-06-08] MEDS: Meropenem 500 MG, Admixture Fee 1 EACH in Sterile Water 10 ML SLOW IVP SCH ×2 (00:56→12:34)
[2017-06-08] MEDS: Acetaminophen 325 MG TAB PO PRN (00:56)
[2017-06-08 06:37] LABS: Anion Gap 12 mmol/L (10-20); BUN (Urea Nitrogen) 19 mg/dL (9.8-20.1); Calc. Creatinine Clearance 32 mL/min (70-130); Calcium 7.9 mg/dL (7.8-10.44); Carbon Dioxide 16 mmol/L (23-31); Chloride 110 mmol/L (98-107); Estimated GFR-MDRD 39
[2017-06-08] MEDS: Famotidine 20 MG TAB PO SCH (08:57)
[2017-06-08] MEDS: predniSONE 20 MG TAB PO SCH (08:57)
[2017-06-08] MEDS: Mycophenolate 250 MG CAP PO SCH ×2 (08:58→21:26)
[2017-06-08] MEDS: Hydroxychloroquine Sulfate 200 MG TAB PO SCH ×2 (08:58→21:26)
[2017-06-08] MEDS ORDERED: predniSONE 1 MG TAB PO SCH (09:00)
[2017-06-08] MEDS ORDERED: Teriparatide [Forteo] 20 MCG PO SCH ×2 (09:00)
[2017-06-08] MEDS ORDERED: Amlodipine 10 MG TAB PO SCH (09:00)
[2017-06-08] MEDS ORDERED: TERIPARATIDE 20 MCG SC SCH (09:00)
[2017-06-08] MEDS ORDERED: predniSONE 20 MG TAB PO SCH (09:00)
[2017-06-08] MEDS ORDERED: predniSONE 5 MG TAB PO SCH (09:00)
[2017-06-08] MEDS ORDERED: Loperamide HCl 2 MG CAP PO PRN (09:34)
[2017-06-08] MEDS: Potassium Chloride 10 MEQ TAB PO SCH ×2 (12:34→16:58)
--- NOTE | 2017-06-08 13:06 | PDOC.PN ---
- Subjective Encounter Start Date: 06/08/17 Encounter Start Time: 10:30 Patient seen and examined. No new complaints. No overnight events. No CP/SOB - Objective Resuscitation Status: Resuscitation Status FULL:Full Resuscitation MAR Reviewed: Yes Vital Signs & Weight: Vital Signs (12 hours) Temp Pulse Resp BP BP BP Pulse Ox 06/08/17 09:04 98.6 F 100 18 92 L 06/08/17 08:57 100 179/79 H 06/08/17 08:56 98.6 F 100 18 179/79 H 92 L 06/08/17 04:00 99.2 F 121 H 18 137/75 97 Weight Weight 112 lb 12.8 oz I&O: 06/07/17 06/08/17 06/09/17 06:59 06:59 06:59 Intake Total 1566 2860 Output Total 1400 2650 Balance 166 210 Result Diagrams: 06/07/17 05:22 06/08/17 05:04 EKG Reviewed by me: Yes (Tele SR) Phys Exam - Physical Examination Constitutional: NAD Respiratory: no wheezing, no rhonchi Cardiovascular: RRR, no rub Gastrointestinal: soft, non-tender, positive bowel sounds Musculoskeletal: no edema Neurological: non-focal, moves all 4 limbs Dx/Plan - Plan DVT proph w/SCDs IMPRESSION: 1. Sepsis with acute organ dysfunction due to E coli UTI 2. NSTEMI - due to demand ischemia 3. LUIS FELIPE 4. Hypokalemia 5. SLE on chronic steroids 6. Lactic acidosis PLAN: * Cardiology following * Await Echo/ID input * DC IVF * Replace Potassium * Await Atbx sensitivity * AM labs * Cont other home meds as below Review of Systems - Review of Systems Respiratory: negative: Cough, Dry, Shortness of Breath, Hemoptysis, SOB with Excertion, Pleuritic Pain, Sputum, Wheezing Cardiovascular: negative: Chest Pain, Palpitations, Orthopnea, Paroxysmal Noc. Dyspnea, Edema, Light Headedness Gastrointestinal: negative: Nausea, Vomiting, Abdominal Pain, Diarrhea, Constipation, Melena, Hematochezia - Medications/Allergies Allergies/Adverse Reactions: Allergies Allergy/AdvReac Type Severity Reaction Status Date / Time iron Allergy Severe Rash Verified 06/06/17 17:02 Sulfa (Sulfonamide Allergy Severe Rash Verified 06/06/17 17:02 Antibiotics) Medications: Current Medications Acetaminophen (Tylenol) 650 mg PO Q4H PRN PRN Reason: Headache/Fever or Pain Last Admin: 06/08/17 00:56 Dose: 650 mg Amlodipine Besylate (Norvasc) 10 mg PO DAILY [facility] Calcitriol (Rocaltrol) 0.25 mcg PO MWF@0900 [facility] Famotidine (Pepcid) 20 mg PO DAILY [facility] Last Admin: 06/08/17 08:57 Dose: 20 mg Hydralazine HCl (Apresoline) 10 mg SLOW IVP Q4H PRN PRN Reason: Hypertension Hydroxychloroquine Sulfate (Plaquenil) 200 mg PO BID [facility] Last Admin: 06/08/17 08:58 Dose: 200 mg Meropenem 500 mg/Miscellaneous Medication 1 each/ Sterile Water 10 mls @ 120 mls/hr SLOW IVP 0100,0900,1700 [facility] Last Admin: 06/08/17 12:34 Dose: 10 mls Loperamide HCl (Imodium) 2 mg PO PRN PRN PRN Reason: Diarrhea/Loose Stools Metoprolol Succinate (Toprol Xl) 25 mg PO DAILY [facility] Last Admin: 06/08/17 08:58 Dose: 25 mg Mycophenolate Mofetil (Cellcept) 1,000 mg PO BID [facility] Last Admin: 06/08/17 08:58 Dose: 1,000 mg Ondansetron HCl (Zofran) 4 mg IVP Q6H PRN PRN Reason: Nausea/Vomiting Teriparatide [Forteo (] 20 Mcg) 0 each PO DAILY [facility] Potassium Chloride (Klor-Con 10) 10 meq [address]-[facility] Last Admin: 06/08/17 12:34 Dose: 10 meq Prednisone (Prednisone) 20 mg PO QAM-WM [facility] Last Admin: 06/08/17 08:57 Dose: 20 mg Sodium Chloride (Flush - Normal Saline) 10 ml IVF Q12HR [facility] Last Admin: 06/08/17 08:59 Dose: Not Given Sodium Chloride (Flush - Normal Saline) 10 ml IVF PRN PRN PRN Reason: Saline Flush
[2017-06-08] MEDS ORDERED: cefTRIAXone\\ROCEPHIN 1 GM in Sodium Chloride 0.9% 100 ML IVPB SCH (13:15)
[2017-06-08] MEDS: cefTRIAXone\\ROCEPHIN 1 GM, Syringe 0.4 ML in Sterile Water 9.6 ML SLOW IVP SCH (14:48)
--- NOTE | 2017-06-08 14:50 | PDOC.CTH ---
Cardiology Progress Note - Subjective No new issues. No chest pain, tightness, pressure. - Objective Vital Signs Temp Pulse Resp BP BP BP Pulse Ox 06/08/17 12:04 98.0 F 101 H 20 166/77 H 90 L 06/08/17 09:04 98.6 F 100 18 92 L 06/08/17 08:57 100 179/79 H 06/08/17 08:56 98.6 F 100 18 179/79 H 92 L 06/08/17 04:00 99.2 F 121 H 18 137/75 97 Weight 112 lb 12.8 oz 06/07/17 06/08/17 06/09/17 06:59 06:59 06:59 Intake Total 1566 2860 Output Total 1400 2650 Balance 166 210 - Physical Examination General/Neuro: alert & oriented x3, NAD Neck: no JVD present Lungs: CTA, unlabored respirations Heart: RRR Abdomen: NT/ND Extremities: + edema B (no edema.) - Telemetry Telemetry Rhythm: NSR - Labs Result Diagrams: 06/07/17 05:22 06/08/17 05:04 Troponin/CKMB CK-MB (CK-2) 1.0 ng/mL (0-6.6) 06/06/17 10:14 Troponin I 0.497 ng/mL (< 0.028) H* 06/06/17 16:19 - Assessment/Plan 1. NSTEMI, demand ischemia. 2. UTI 3. SLE 4. Lupus nephropathy PLAN: - Continue conservative management. - Echo pending. - Replace K - Follow up in 1 month post discharge.
--- NOTE | 2017-06-08 16:26 | CON ---
DATE OF CONSULTATION: 06/08/2017 REASON FOR CONSULTATION: Possible UTI. HISTORY OF PRESENT ILLNESS: A 71-year-old with history of systemic lupus erythematosus for the past 14 years when she presented with severe nephritis. The patient received Cytoxan and prednisone, and had a very good response and avoided hemodialysis then and has remained fairly stable with intermitte nt relapses of her nephritis at times. She also has had recurrent episodes of what has been interpre michelle as representing urinary tract infections. One of the episodes about two years ago actually was a ssociated bacteremia with E. coli. The patient had been admitted 3 weeks before when she came in wit h fever. She was given IV antimicrobials and transitioned to oral Macrobid and discharged and then t his time she presented with new onset of chills, some malaise, but no headaches, visual symptoms, sor e throat, odynophagia, or dysphagia, some back pain, but no typical back pain which she associates wi th the autoimmune syndrome. No cough or sputum production or chest pain, no dyspnea, no abdominal pa in until she came to the emergency room when she had an element of urinary retention which required c atheterization. She has chronic joint symptoms which are unchanged. No neurological symptoms. PAST MEDICAL HISTORY: SLE with nephritis with excellent response to Cytoxan in the past, hypertensio n, osteoporosis, benign kidney mass, ovarian mass, intestinal ulcerations. PAST SURGICAL HISTORY: Hysterectomy, splenectomy, ovarian mass removal. ALLERGIES: SULFA. SOCIAL HISTORY: Never a smoker, , lives in [place]. FAMILY HISTORY: Noncontributory. CURRENT MEDICATIONS: Norvasc, Excedrin, calcitriol, vitamin D, Plaquenil, CellCept, Forteo, and pred nisone 5 mg daily, currently receiving meropenem as well. PHYSICAL EXAMINATION: VITAL SIGNS: T-max 98.6, blood pressure 170/79, pulse 100, respirations 18, O2 sat 92%. SKIN: Remarkable for multiple areas of bruising in the skin of the extensor aspect of the upper extr emities. Peripheral IV access. she is voiding spontaneously. No lymphadenopathy. HEENT: Ocular movements are conjugate. Sclerae white. Oral cavity with still quite a few teeth in place. No mucosal abnormalities. NECK: Supple, no jugular venous distention or carotid bruits, no thyromegaly. LUNGS: With symmetric air entry. No crackles or wheezing. HEART: S1, S2, regular rate. No S3 or S4. ABDOMEN: Not distended or tender. No ascites. Question of bladder distention, no organomegaly. EXTREMITIES: No joint inflammatory activity noted. Pulses are 1+ in dorsalis pedis. Moves all extr emities equally. NEUROLOGIC: Plantar responses are flexor. No clonus. Cognitive function appears to be intact. LABORATORY DATA: White cell count 22 and now 12,000, hemoglobin 11 and 9.5, platelets 178, 69% neutr ophils, 25% bands and now 93% neutrophils, 4% bands and creatinine is 2.16 on arrival and 1.35 on the third day. Baseline creatinine lowest encountered was 1.24 a few weeks ago. Urinalysis with 21-50 wbc's. Most recent cultures from 06/06/2017 with E. coli pending susceptibilities, greater than 100, 000 CFUs per mL. Previous E. coli positive urine culture from 05/12/2017 about a month ago with resi stance to quinolones, Bactrim and ampicillin. Imaging studies include a chest x-ray from this admiss ion with nodular densities in right upper lobe and right mid lung zone, those had previously been int erpreted as representing rib fractures with healing in a previous x-ray, but this one, the radiologis t is not so sure about it and abdomen ultrasound from May last year with an atrophic-appearing l eft kidney, mildly distended gallbladder. ASSESSMENT: 1. Systemic lupus erythematosus with previously treated severe nephritis with excellent response to Cytoxan and prednisone treatment. 2. Recurrent episodes of what has been interpreted as representing urinary tract infections, one of them at least had bacteremia associated with it. 3. Recrudescence of chills without localizing symptoms. 4. Possible urinary retention. 5. Abnormal chest x-ray with nodular lesions in the right upper lobe. DISCUSSION: Although urinary tract infection is certainly a possibility here with invasive features associated with urinary retention, we will have to assess the lung findings and the CT of chest, will reimage the abdomen and pelvis as well with a noncontrast study. Evaluate urinary bladder residual and switch her to Rocephin based on the recent susceptibility studies from 05/12/2017. May need a PI CC line placement and treatment for 2 weeks.
--- NOTE | 2017-06-08 17:43 | CT ---
CT CHEST NONCONTRAST CT ABDOMEN AND PELVIS NONCONTRAST 06/08/17 HISTORY: Bladder infection. Fever and abdominal pain. Abnormal chest radiograph. COMPARISON: 05/14/16. FINDINGS: Old healed rib fractures are present bilaterally and likely account for densities on chest radiograph . There is minimal bilateral pleural fluid and bibasilar atelectasis. Scattered scarring is also pres ent. Lungs are hyperinflated. No lobar consolidation or parenchymal lung mass are visible. Lack of contrast limits evaluation of the mediastinum. No bulky adenopathy is apparent. There is calc ification in the arterial structures. Chronic atrophy of the left kidney with dystrophic calcification and lobulation of the superior pole are similar in appearance to the prior exam. Each renal collecting system, ureter, and urinary bladde r are decompressed without stone evident. Lack of contrast limits evaluation for other abnormalities. There is no evidence of bowel obstruction . No free fluid or free air. Scattered diverticula arise from the colon without adjacent inflammation apparent. IMPRESSION: 1. No evidence of lung mass. Abnormality on recent chest radiograph likely represents healing ri b fractures or overlying artifact. 2. COPD. 3. Atherosclerosis. 4. No evidence of bowel obstruction. POS: [facility]
[2017-06-08] MEDS: Sodium Chloride 0.9% 1,000 ML IV SCH (20:19)
[2017-06-09 05:24] LABS: #Lymphocytes 1.3 thou/uL (1.20-3.40); #Monocytes 0.7 thou/uL (0.11-0.59); #Neutrophils 3.4 thou/uL (1.40-6.50); %Basophils 0.1 % (0.0-1.0); %Eosinophils 0.6 % (0.0-10.0); %Lymphocytes 23.6 % (21.0-51.0); %Monocytes 12.3 % (0.0-10.0); Hematocrit 27.6 % (36.0-47.0); Mean Platelet Volume 11.3 fL (7.4-10.4); Red Blood Cell (RBC) Count 2.87 mill/uL (4.20-5.40); White Blood Cell (WBC) Count 5.3 thou/uL (4.8-10.8)
[2017-06-09 05:47] LABS: ALT (SGPT) 10 U/L (8-55); AST (SGOT) 22 U/L (5-34); Alkaline Phosphatase 45 U/L (40-150); Anion Gap 14 mmol/L (10-20); BUN (Urea Nitrogen) 21 mg/dL (9.8-20.1); Bilirubin, Total 0.3 mg/dL (0.2-1.2); Calc. Creatinine Clearance 31 mL/min (70-130); Carbon Dioxide 15 mmol/L (23-31); Chloride 110 mmol/L (98-107); Estimated GFR-MDRD 37; Globulin 2.3 g/dL (2.4-3.5); Magnesium 1.7 mg/dL (1.6-2.6); Phosphorus 2.6 mg/dL (2.3-4.7); Protein, Total 5.2 g/dL (6.0-8.3)
[2017-06-09] MEDS: Guaifenesin DM 100-10/5 ML UDCUP PO PRN ×2 (06:00→20:53)
--- NOTE | 2017-06-09 07:14 | PDOC.CTH ---
Cardiology Progress Note - Subjective She is doing well. Denies any chest pain, tightness, pressure. - Objective Vital Signs Temp Pulse Resp BP Pulse Ox 06/09/17 04:00 98.9 F 88 18 150/71 H 92 L 06/08/17 19:22 98.3 F 98 18 156/74 H 95 Weight 113 lb 06/08/17 06/09/17 06/10/17 06:59 06:59 06:59 Intake Total 2860 1130 Output Total 2650 1560 Balance 210 -430 - Physical Examination General/Neuro: alert & oriented x3, NAD Neck: no JVD present Lungs: unlabored respirations Heart: RRR Abdomen: NT/ND Extremities: other: (no edema,) - Telemetry Telemetry Rhythm: NSR - Labs Result Diagrams: 06/09/17 04:16 06/09/17 04:16 Troponin/CKMB CK-MB (CK-2) 1.0 ng/mL (0-6.6) 06/06/17 10:14 Troponin I 0.497 ng/mL (< 0.028) H* 06/06/17 16:19 - Assessment/Plan 1. NSTEMI, demand ischemia. 2. UTI 3. SLE 4. Lupus nephropathy PLAN: - Continue conservative management. - Echo pending. - Follow up in 1 month post discharge. - November discharge after echo done.
[2017-06-09] MEDS: Famotidine 20 MG TAB PO SCH (07:56)
[2017-06-09] MEDS: predniSONE 20 MG TAB PO SCH (07:56)
[2017-06-09] MEDS: Amlodipine 10 MG TAB PO SCH (07:57)
[2017-06-09] MEDS: Mycophenolate 250 MG CAP PO SCH ×2 (07:57→20:50)
[2017-06-09] MEDS: Hydroxychloroquine Sulfate 200 MG TAB PO SCH ×2 (07:58→20:50)
[2017-06-09] MEDS: Potassium Chloride 10 MEQ TAB PO SCH (07:58)
[2017-06-09] MEDS ORDERED: Calcitriol 0.25 MCG CAP PO SCH (09:00)
[2017-06-09] MEDS ORDERED: CALCITRIOL 0.25 MCG PO SCH (09:00)
[2017-06-09] MEDS: cefTRIAXone\\ROCEPHIN 1 GM, Syringe 0.4 ML in Sterile Water 9.6 ML SLOW IVP SCH (13:38)
--- NOTE | 2017-06-09 18:39 | PDOC.PN ---
- Subjective Encounter Start Date: 06/09/17 Encounter Start Time: 11:00 Patient seen and examined. No new complaints. No overnight events - Objective Resuscitation Status: Resuscitation Status FULL:Full Resuscitation MAR Reviewed: Yes Vital Signs & Weight: Vital Signs (12 hours) Temp Pulse Resp BP BP BP Pulse Ox 06/09/17 16:08 98.1 F 87 16 132/75 94 L 06/09/17 11:21 98.1 F 88 18 134/70 92 L 06/09/17 07:57 86 148/67 H 06/09/17 07:20 98.2 F 86 16 148/67 H 92 L Weight Weight 113 lb I&O: 06/08/17 06/09/17 06/10/17 06:59 06:59 06:59 Intake Total 2860 1130 1520 Output Total 2650 1560 650 Balance 210 -430 870 Result Diagrams: 06/09/17 04:16 06/09/17 04:16 EKG Reviewed by me: Yes (Tele SR) Phys Exam - Physical Examination Constitutional: NAD Respiratory: no wheezing, no rhonchi Cardiovascular: RRR, no rub Gastrointestinal: soft, non-tender, positive bowel sounds Musculoskeletal: no edema Neurological: non-focal, moves all 4 limbs Dx/Plan - Plan DVT proph w/SCDs IMPRESSION: 1. Sepsis with acute organ dysfunction due to E coli UTI - on IV Atbx 2. NSTEMI - due to demand ischemia - Echo normal EF 3. LUIS FELIPE - improving 4. Hypokalemia - on replacement 5. SLE on chronic steroids 6. Lactic acidosis - improving PLAN: * I d/w Dr Phillips who recommeded 2 weeks IV Ceftriaxone * PICC line * Cardiology following * Cont other home meds as below * DC after PICC line and Atbx setup Review of Systems - Review of Systems Respiratory: negative: Cough, Dry, Shortness of Breath, Hemoptysis, SOB with Excertion, Pleuritic Pain, Sputum, Wheezing Cardiovascular: negative: Chest Pain, Palpitations, Orthopnea, Paroxysmal Noc. Dyspnea, Edema, Light Headedness - Medications/Allergies Allergies/Adverse Reactions: Allergies Allergy/AdvReac Type Severity Reaction Status Date / Time iron Allergy Severe Rash Verified 06/06/17 17:02 Sulfa (Sulfonamide Allergy Severe Rash Verified 06/06/17 17:02 Antibiotics) Medications: Current Medications Acetaminophen (Tylenol) 650 mg PO Q4H PRN PRN Reason: Headache/Fever or Pain Last Admin: 06/08/17 00:56 Dose: 650 mg Amlodipine Besylate (Norvasc) 10 mg PO DAILY [facility] Last Admin: 06/09/17 07:57 Dose: 10 mg Calcitriol (Rocaltrol) 0.25 mcg PO MWF@0900 [facility] Last Admin: 06/09/17 07:56 Dose: 0.25 mcg Famotidine (Pepcid) 20 mg PO DAILY [facility] Last Admin: 06/09/17 07:56 Dose: 20 mg Guaifenesin/Dextromethorphan (Robitussin Dm) 15 ml PO Q4H PRN PRN Reason: Cough Last Admin: 06/09/17 06:00 Dose: 15 ml Hydralazine HCl (Apresoline) 10 mg SLOW IVP Q4H PRN PRN Reason: Hypertension Hydroxychloroquine Sulfate (Plaquenil) 200 mg PO BID [facility] Last Admin: 06/09/17 07:58 Dose: 200 mg Ceftriaxone Sodium 1 gm/ (Syringe 0.4 ml/ Sterile Water) 10 mls @ 120 mls/hr SLOW IVP 1400 [facility] Last Admin: 06/09/17 13:38 Dose: 10 mls Loperamide HCl (Imodium) 2 mg PO PRN PRN PRN Reason: Diarrhea/Loose Stools Metoprolol Succinate (Toprol Xl) 25 mg PO DAILY [facility] Last Admin: 06/09/17 07:58 Dose: 25 mg Mycophenolate Mofetil (Cellcept) 1,000 mg PO BID [facility] Last Admin: 06/09/17 07:57 Dose: 1,000 mg Ondansetron HCl (Zofran) 4 mg IVP Q6H PRN PRN Reason: Nausea/Vomiting Prednisone (Prednisone) 20 mg PO QAM-WM [facility] Last Admin: 06/09/17 07:56 Dose: 20 mg Sodium Chloride (Flush - Normal Saline) 10 ml IVF Q12HR [facility] Last Admin: 06/09/17 07:56 Dose: 10 ml Sodium Chloride (Flush - Normal Saline) 10 ml IVF PRN PRN PRN Reason: Saline Flush Last Admin: 06/08/17 14:48 Dose: 10 ml
[2017-06-10 08:21] VITALS: BP 137/72; TEMP 98.1
[2017-06-10] MEDS: Mycophenolate 250 MG CAP PO SCH (08:21)
[2017-06-10] MEDS: Hydroxychloroquine Sulfate 200 MG TAB PO SCH (08:22)
[2017-06-10] MEDS: predniSONE 20 MG TAB PO SCH (08:22)
[2017-06-10] MEDS: Famotidine 20 MG TAB PO SCH (08:22)
[2017-06-10] MEDS: Amlodipine 10 MG TAB PO SCH (08:22)
--- NOTE | 2017-06-10 09:24 | SPC ---
ULTRASOUND GUIDED LEFT UPPER EXTREMITY PICC LINE PLACEMENT: Date: 06-10-17 History: UTI. Patient needs long-term IV antibiotics. Fluoroscopy: Total time 0.1 minutes with total dose of 228 mGy*cm^2. Technique: After informed consent was obtained, the patient was placed on the angiographic table in supine posit ion. The left upper extremity was meticiously prepped and draped in the usual sterile fashion. An ana ropriate access site was determined with ultrasound guidance. Skin and subcutaneous tissues were infiltrated with buffered 1% Lidocaine for local anesthesia at the intended puncture site. The left basilic vein was accessed utilizing micropuncture technique and con current real-time ultrasound guidance. A 5 Mont[place]grin peel-away sheath was placed. Catheter was measured and cut to the appropriate length. Catheter was placed over the guidewire with tip positioned overlyi ng the cavoatrial junction. Guidewire and peel-away sheath were removed. Catheter was accessed and as pirated/flushed easily. Dry sterile dressing was placed. FINDINGS: Technically successful placement of a single lumen 5 [place]enegrin 38.5 cm PICC line via the left basilic ve in. Tip of the catheter overlies the cavoatrial junction. IMPRESSION: Technically successful left upper extremity PICC line placement. POS: [facility]
[2017-06-10] MEDS: cefTRIAXone\\ROCEPHIN 1 GM, Syringe 0.4 ML in Sterile Water 9.6 ML SLOW IVP SCH (10:58)
--- NOTE | 2017-06-10 16:48 | PDOC.EVN ---
Event Note - Event Note Event Note: Patient seen and examined. Discharge summary dictated. Total time coordinating discharge was 32 min
--- NOTE | 2017-06-10 17:06 | DIS ---
DATE OF DISCHARGE: 06/10/2017 DISCHARGE DISPOSITION: Home with home health care through [facility]. ALLERGIES: IRON AND SULFA. FOLLOWUP: With Dr. Sen in 1 week. Follow up with Dr. Siu in 3-4 weeks. The patient was seen and examined on the day of discharge. Denies any new complaints. DISCHARGE MEDICATIONS: IV ceftriaxone 1 gram daily for the next [address] Phillips. OTHER DISCHARGE MEDICATIONS: Amlodipine 10 mg daily, calcitriol 0.25 mcg Friday , Friday, Friday, vitamin D3 5000 units daily, cranberry with vitamin C 1 capsule daily, Plaquenil 200 mg b.i.d., loperamide as needed, Toprol-XL 25 mg daily, CellCept 1000 mg b.i.d., prednisone 20 mg daily, teriparatide 20 mcg daily. INPATIENT CONSULTANTS: 1. Infectious Disease, Dr. Phillips. 2. Cardiology, Dr. Siu INPATIENT PROCEDURES: 10/06/2017, patient underwent PICC line placement. BRIEF HOSPITAL COURSE: The patient is a 71-year-old female with systemic lupus erythematosus and recurrent urinary tract infection, presented to the hospital with fever, chills with shortness of breath. Please refer to the history and physical dated 06/06/2017 for further details. The patient was admitted to the hospital with a diagnosis of sepsis with acute organ dysfunction secondary to Escherichia coli urinary tract infection. She was started on broad spectrum antibiotics that has been changed to IV ceftriaxone. She will continue with ceftriaxone for [address] Phillips' . On admission, patient had shortness of breath with elevated troponins. The maximum troponin was 0.497. The patient was seen by Cardiology, Dr. Siu. Echocardiogram showed left ventricular ejection fraction of 55%-60% with grade I of III diastolic dysfunction. Her troponin elevation was probably secondary to sepsis per Cardiology, Dr. Siu. She has been cleared by Cardiology for discharge. FINAL DIAGNOSES: 1. Sepsis with acute organ dysfunction secondary to Escherichia coli urinary tract infection. 2. Non-ST elevation myocardial infarction secondary to demand ischemia. Echocardiogram showed normal left ventricular ejection fraction. 3. Acute kidney injury with maximum creatinine 2.16, improved. 4. Chronic kidney disease stage 3. 5. Hypokalemia, corrected. 6. Hypoalbuminemia/mild protein calorie malnutrition. 7. Abnormal troponins secondary to demand ischemia. 8. History of lupus nephropathy. 9. Systemic lupus erythematosus, on chronic steroids. 10. Lactic acidosis on admission, resolved. Maximum Lactic acid on admission was 3.8. Plan of care was discussed with the patient. She stated understanding. Patient refused Aspirin due to peptic ulcer disease in the past. KADEN
--- NOTE | 2017-06-10 18:06 | PDOC.CTH ---
Cardiology Progress Note - Subjective This is a late entry. Pt seen in the morning. She is doing well. We discussed echo results. Normal LV function. Her CT chest showed coronary calcifications so we need to make sure her CAD is not ischemic with stress testing once her infection is better. - Objective Vital Signs Temp Pulse Resp BP BP Pulse Ox 06/10/17 08:22 86 137/72 06/10/17 08:20 98.1 F 86 18 96 06/10/17 08:17 98.1 F 86 18 137/72 96 Weight 113 lb 06/09/17 06/10/17 06/11/17 06:59 06:59 06:59 Intake Total 1130 2000 Output Total 1560 1250 Balance -430 750 - Physical Examination General/Neuro: alert & oriented x3, NAD Neck: no JVD present Lungs: unlabored respirations Heart: RRR Abdomen: NT/ND Extremities: other: (no edema.) - Telemetry Telemetry Rhythm: NSR - Labs Result Diagrams: 06/09/17 04:16 06/09/17 04:16 Troponin/CKMB CK-MB (CK-2) 1.0 ng/mL (0-6.6) 06/06/17 10:14 Troponin I 0.497 ng/mL (< 0.028) H* 06/06/17 16:19 - Assessment/Plan 1. NSTEMI, demand ischemia. 2. UTI 3. SLE 4. Lupus nephropathy 5. CAD. PLAN: - Continue conservative management. - Follow up in 1 month post discharge.
[2017-06-11 16:14] LABS: CMV log 10 Quant 3.945 (.)
== END 2017-06-10 11:22 | disposition home health service (06) | DRG 871 ==
LOC: ERS 09:53 → 2NO 14:23
PROVIDERS: ADMIT Internal Medicine; ATTEND Internal Medicine
PROC: 02HV33Z Insertion of Infusion Device into Superior Vena Cava, Percutaneous Approach (ICD-10-PCS; principal; 2017-06-10)
DX: A41.51 Sepsis due to Escherichia coli [E. coli] (principal); I21.A1 Myocardial infarction type 2; N17.9 Acute kidney failure, unspecified; E87.2 Acidosis; M32.9 Systemic lupus erythematosus, unspecified; N18.3 Chronic kidney disease, stage 3 (moderate); E44.1 Mild protein-calorie malnutrition; E87.1 Hypo-osmolality and hyponatremia; N39.0 Urinary tract infection, site not specified; M81.0 Age-related osteoporosis without current pathological fracture; K58.9 Irritable bowel syndrome, unspecified; E87.6 Hypokalemia; E88.09 Other disorders of plasma-protein metabolism, not elsewhere classified; I25.10 Atherosclerotic heart disease of native coronary artery without angina pectoris; I12.9 Hypertensive chronic kidney disease with stage 1 through stage 4 chronic kidney disease, or unspecified chronic kidney disease; R65.20 Severe sepsis without septic shock; Z68.22 Body mass index [BMI] 22.0-22.9, adult; Z88.2 Allergy status to sulfonamides; Z91.09 Other allergy status, other than to drugs and biological substances; Z79.52 Long term (current) use of systemic steroids; Z82.49 Family history of ischemic heart disease and other diseases of the circulatory system; Z80.3 Family history of malignant neoplasm of breast
CPT/HCPCS: 36415; 36569; 71010; 71250; 74177; 80048; 80053; 81003; 81015; 82553; 83605; 83690; 83735; 84100; 84484; 85025; 87077; 87086; 87186; 87497; 87899; 93005; 93306; 96361; 96365; 96366; 96367; 96368; A4216; A4353; C1751; J0696; J1580; J1644; J2185; J3370; J7050; J7506; J7517

== ENCOUNTER 2017-08-09 20:22 | Inpatient (IN) | payer MEDICARE, OTHER ==
--- NOTE | 2017-08-09 21:00 | RAD ---
EXAM: ONE VIEW CHEST 08/09/17 COMPARISON: 06/06/17 FINDINGS: Dyspnea. Portable upright chest demonstrates a normal cardiac silhouette. There is atherosclerosis of the aort a. Lungs are hyperinflated. Multiple pleural based densities are redemonstrated. No masses or consoli dation. No pneumothorax or osseous abnormalities. Chronic change in the left lung base are noted. IMPRESSION: Atherosclerosis. No acute cardiopulmonary process. POS: [facility]
[2017-08-09 21:19] LABS: Hemoglobin 10.4 g/dL (12.0-16.0); Lymphocytes 2 % (21-51); MDiff Complete? YES; Mean Corpuscular HGB CONC 30.7 g/dL (32.0-36.0); Mean Corpuscular Hemoglobin 27.7 pg (27.0-31.0); Mean Corpuscular Volume 90.1 fl (81.0-99.0); Mean Platelet Volume 9.6 fL (7.4-10.4); Monocytes 2 % (0-10); Neutrophil 96 % (42-75); Platelet Count 238 thou/uL (130-400); RBC Distribution Width 14.5 % (11.5-14.5); Red Blood Cell (RBC) Count 3.75 mill/uL (4.20-5.40); White Blood Cell (WBC) Count 10.8 thou/uL (4.8-10.8)
[2017-08-09 21:21] LABS: CKMB 1.2 ng/mL (0-6.6); Troponin I 0.018 ng/mL (< 0.028)
[2017-08-09 21:22] LABS: ALT (SGPT) 10 U/L (8-55); AST (SGOT) 17 U/L (5-34); Albumin 3.6 g/dL (3.4-4.8); Alkaline Phosphatase 78 U/L (40-150); Anion Gap 20 mmol/L (10-20); BUN (Urea Nitrogen) 47 mg/dL (9.8-20.1); Bilirubin, Total 0.4 mg/dL (0.2-1.2); Calc. Creatinine Clearance 0 mL/min (70-130); Calcium 8.7 mg/dL (7.8-10.44); Carbon Dioxide 16 mmol/L (23-31); Chloride 99 mmol/L (98-107); Estimated GFR-MDRD 21; Globulin 2.5 g/dL (2.4-3.5); Glucose 116 mg/dL (80-115); Potassium 4.7 mmol/L (3.5-5.1); Protein, Total 6.1 g/dL (6.0-8.3); Sodium 130 mmol/L (136-145)
[2017-08-09] MEDS ORDERED: Senokot 8.6 MG TAB PO PRN (23:36)
[2017-08-09] MEDS ORDERED: Sodium Chloride 0.65% Nasal 44 ML BOT EA NARE PRN (23:36)
[2017-08-09] MEDS ORDERED: Sodium Chloride 0.9% 1,000 ML IV SCH (23:36)
[2017-08-09] MEDS ORDERED: Mag-Al 1200 mg/1200 mg/30 ML UDCUP PO PRN (23:36)
[2017-08-09] MEDS ORDERED: HYDROcodone/Acetaminophen 5/325 mg Tablet PO PRN (23:36)
[2017-08-09] MEDS ORDERED: Diabetic Tussin 200 MG/10 ML UDCUP PO PRN (23:36)
[2017-08-09] MEDS ORDERED: Chloraseptic Spray 180 ml Bottle PO PRN (23:36)
[2017-08-09] MEDS ORDERED: Artificial Tears 18 DROP/0.9 ML EA EYE PRN (23:36)
[2017-08-09] MEDS ORDERED: cloNIDine 0.1 MG TAB PO PRN (23:36)
[2017-08-09] MEDS ORDERED: Ondansetron ODT 4 MG TAB PO PRN (23:36)
[2017-08-09] MEDS ORDERED: hydrALAZINE 20 MG/ML VIAL SLOW IVP PRN (23:36)
[2017-08-09] MEDS ORDERED: Eucerin (Mineral Oil/Petrolatum,White) 30 gm Jar TOP PRN (23:36)
[2017-08-09] MEDS ORDERED: Loratadine 10 MG TAB PO PRN (23:36)
[2017-08-09] MEDS ORDERED: Milk Of Magnesia 30 ML UDCUP PO PRN (23:36)
[2017-08-09] MEDS ORDERED: Zolpidem Tartrate 5 MG TAB PO PRN (23:36)
[2017-08-10] MEDS: Ondansetron HCl/PF 4 MG/2 ML Vial IVP PRN ×2 (00:11→07:51)
--- NOTE | 2017-08-10 03:13 | HP ---
DATE OF SERVICE: 08/09/2017 PRIMARY CARE PHYSICIAN: Dr. Sergio Sen. REASON FOR ADMISSION: Acute on chronic kidney failure, mild dehydration, normal anion gap, acidosis, hyponatremia. HISTORY OF PRESENT ILLNESS: A 71-year-old female who went to [facility] with complaint of dizziness, generalized weakness, epigastric, and upper abdominal pain. The patient also reports that lately she was having more diarrhea than usual. She was feeling dizzy, lightheaded and very weak. She was not feeling normal. She did not have any fever or any flu-like symptoms. She denies any UTI symptoms. She denies any melena or hematochezia. She denies any nausea, vomiting. She denies any weight loss. She denies any fever or chills. With these symptoms, she presented to the emergency room. Patient has underlying history of adrenal insufficiency and she is taking steroids. She is dependent on steroid. She is taking Imodium p.r.n. basis for her chronic diarrhea. The patient is following Nephrology, Cardiology, and endocrinology as well as Rheumatology as an outpatient basis. REVIEW OF SYSTEMS: The following complete review of systems was negative, unless otherwise mentioned in the HPI or below: Constitutional: Weight loss or gain, ability to conduct usual activities. Skin: Rash, itching. Eyes: Double vision, pain. ENT/Mouth: Nose bleeding, neck stiffness, pain, tenderness. Cardiovascular: Palpitations, dyspnea on exertion, orthopnea. Respiratory: Shortness of breath, wheezing, cough, hemoptysis, fever or night sweats. Gastrointestinal: Poor appetite, abdominal pain, heartburn, nausea, vomiting, constipation, or diarrhea. Genitourinary: Urgency, frequency, dysuria, nocturia. Musculoskeletal: Pain, swelling. Neurologic/Psychiatric: Anxiety, depression. Allergy/Immunologic: Skin rash, bleeding tendency. Please see my HPI for pertinent positives and negatives. All other review of system reviewed and negative except as mentioned in the HPI. PAST MEDICAL HISTORY: Systemic lupus erythematosus, hypertension, osteoporosis secondary adrenal insufficiency, history of benign left kidney tumor, irritable bowel syndrome, history of left ovarian mass. PAST SURGICAL HISTORY: Hysterectomy, splenectomy, left ovarian mass removed. Cataract surgery, bilateral. PAST PSYCHIATRIC HISTORY: Reviewed and negative. SOCIAL HISTORY: Patient lives at home. She is . She has two daughter and son. No history of tobacco, alcohol, or illicit drug abuse. ALLERGIES: SULFA DRUGS AND IRON. FAMILY HISTORY: Father by age of 72 from heart attack. Mother was diagnosed with breast cancer and by age of 66. CURRENT HOME MEDICATIONS: Prednisone 10 mg twice daily, Lasix 20 mg every other day, metoprolol succinate 50 mg p.o. daily, Plaquenil 300 mg p.o. daily, calcitriol 0.25 mcg Friday, Friday, Friday, CellCept 1000 mg twice daily. EMERGENCY ROOM COURSE: Patient is given IV fluid. PHYSICAL EXAMINATION: VITAL SIGNS: On arrival, blood pressure 114/61, pulse 78, respiratory rate 20, saturation 96% on room air, weight 45.8 kilograms. GENERAL: Patient is currently alert, awake, no obvious acute distress. HEENT: Normocephalic, atraumatic. Eyes: Pupils are round, reactive to light. Extraocular muscles intact. ENT: Oropharynx within normal limits. Moist mucous membranes. No oral lesions. No pharyngeal erythema, no exudate. Patient does have mild oral thrush. NECK: Supple, no JVD, no thyromegaly, no carotid bruit, no meningeal signs of irritation. LUNGS: Clear to auscultation without any rhonchi or rales. CARDIAC: S1, S2 regular without any murmur. ABDOMEN: Soft. Bowel sounds present. Right upper quadrant and epigastric abdominal discomfort noted, but no Goldberg's sign. No organomegaly, no distention. Bowel sounds present. No suprapubic tenderness. BACK: Unremarkable, no CVA tenderness. EXTREMITIES: Upper extremity passive movement of all joints are normal. Lower extremity edema noted. Good distal pulsation. SKIN: No skin rash. HEMATOLOGICAL: No lymphadenopathy. PSYCHIATRIC: Normal affect. SIGNIFICANT LABS: EKG based on my review, complete right bundle branch block pattern. Chest x-ray based on my review, no acute cardiopulmonary process. CBC : WBC 10.8, hemoglobin 10.4, platelets 238. BMP: Sodium 130, potassium 4.7, chloride 99, carbon dioxide 16, anion gap 20, BUN 47, creatinine 2.35, glucose 116, calcium 8.7. Lactic acid 1.0. LFT: AST is 17, ALT 10, alkaline phosphatase 78, albumin 3.6, CK-MB 1.2, troponin I 0.018. BNP 72.9. Chest x- ray based on my review, no acute cardiopulmonary process. ASSESSMENT AND PLAN: IMPRESSION: 1. Acute on chronic kidney failure. Baseline chronic kidney disease stage 3, likely due to prerenal etiology secondary to diarrhea. Patient will be given 1 liter of IV fluid and will repeat BMP tomorrow. 2. Mild dehydration. As mentioned above. Patient will be given IV fluid and we will repeat BMP tomorrow. 3. Normal anion gap metabolic acidosis likely due to diarrhea. We will start sodium bicarbonate 650 mg p.o. b.i.d. 4. Hyponatremia likely due to dehydration. We will repeat BMP tomorrow after NS given. 5. Normocytic normochromic anemia likely due to chronic disease. 6. Systemic lupus erythematosus. Continue prednisone 10 mg p.o. b.i.d., CellCept 1000 mg p.o. b.i.d., Plaquenil 300 mg p.o. daily. 7. Osteoporosis. Continue Calcitriol 0.25 mcg p.o. on Friday, Friday, and Friday. 8. Secondary adrenal insufficiency checked. Random cortisol tomorrow. 9. Right upper quadrant abdominal pain. We will check ultrasound right upper quadrant to rule out any gallbladder pathology. 10. Hypertension. If blood pressure permits, then we will continue Toprol-XL 50 mg p.o. daily. 11. Irritable bowel syndrome. We will continue with the Imodium p.r.n. basis. 12. Deep venous thrombosis prophylaxis not needed because we are expecting discharge in 24 hours. 13. Gastrointestinal prophylaxis, Protonix 40 mg p.o. daily. CODE STATUS: Patient is FULL CODE. Patient's daughter is surrogate decision maker. Disposition plan based on clinical course, likely 24-hours. Plan of care discussed with the patient in detail. [facility]
[2017-08-10 04:21] LABS: #Monocytes 0.6 thou/uL (0.11-0.59); %Basophils 0.1 % (0.0-1.0); %Eosinophils 0.1 % (0.0-10.0); %Lymphocytes 8.7 % (21.0-51.0); %Monocytes 5.1 % (0.0-10.0); %Neutrophils 85.9 % (42.0-75.0); Hemoglobin 10.4 g/dL (12.0-16.0); Mean Corpuscular HGB CONC 31.7 g/dL (32.0-36.0); Mean Corpuscular Hemoglobin 29.6 pg (27.0-31.0); Mean Corpuscular Volume 93.5 fl (81.0-99.0); Mean Platelet Volume 11.5 fL (7.4-10.4); Platelet Count 237 thou/uL (130-400); Red Blood Cell (RBC) Count 3.51 mill/uL (4.20-5.40); White Blood Cell (WBC) Count 11.7 thou/uL (4.8-10.8)
[2017-08-10 04:30] LABS: Albumin 3.3 g/dL (3.4-4.8); Anion Gap 14 mmol/L (10-20); BUN (Urea Nitrogen) 43 mg/dL (9.8-20.1); Calc. Creatinine Clearance 9 mL/min (70-130); Calcium 8.4 mg/dL (7.8-10.44); Carbon Dioxide 19 mmol/L (23-31); Chloride 102 mmol/L (98-107); Estimated GFR-MDRD 26; Glucose 91 mg/dL (80-115); Phosphorus 4.2 mg/dL (2.3-4.7); Potassium 4.2 mmol/L (3.5-5.1); Sodium 131 mmol/L (136-145)
[2017-08-10] MEDS: Sodium Bicarbonate Tab 325 MG TAB PO SCH ×2 (07:52→20:49)
[2017-08-10] MEDS: predniSONE 20 MG TAB PO SCH ×2 (07:53→16:46)
[2017-08-10] MEDS: Hydroxychloroquine Sulfate 200 MG TAB PO SCH (07:53)
[2017-08-10] MEDS: Mycophenolate 250 MG CAP PO SCH ×2 (07:53→20:48)
--- NOTE | 2017-08-10 09:01 | ULT ---
RIGHT UPPER QUADRANT ULTRASOUND: Date: 08/10/17 HISTORY: Abdominal pain. TECHNIQUE: Multiple longitudinal and transverse images of the right upper quadrant of the abdomen obtained using a multihertz curvilinear transducer. Real-time, color flow, and spectral waveform Doppler analysis o btained. FINDINGS: The liver is unremarkable. No evidence of hepatic parenchymal masses or lesions seen. The gallbladder is unremarkable with no evidence of gallstones seen. No evidence of gallbladder wall thickening is s een. Common bile duct is of normal size measuring 3.2 mm. The right kidney is of normal size, measuring 10.2 cm. There is no evidence of hydronephrosis. There does appear to be some slight increased echogenicity compatible with some chronic medical renal disea se. Correlate with clinical exam and laboratory findings. The pancreas is not adequately visualized due to overlying bowel gas. IMPRESSION: 1. Slightly hyperechoic renal parenchyma. 2. No evidence of gallstones. 3. Normal hepatopetal flow seen in the portal system. POS: [facility]
--- NOTE | 2017-08-10 10:06 | PDOC.PN ---
- Subjective Encounter Start Date: 08/10/17 Encounter Start Time: 09:45 Subjective: i feel a little better, have an appetite - Objective Resuscitation Status: Resuscitation Status FULL:Full Resuscitation MAR Reviewed: Yes Vital Signs & Weight: Vital Signs (12 hours) Temp Pulse Resp BP Pulse Ox 08/10/17 08:29 98.5 F 75 14 134/75 92 L 08/10/17 04:00 98.2 F 79 18 147/70 H 92 L 08/10/17 02:31 95 08/09/17 23:40 97.8 F 74 18 146/76 H 97 Weight Weight 45 lb 8 oz I&O: 08/09/17 08/10/17 08/11/17 06:59 06:59 06:59 Intake Total 1100 Balance 1100 Result Diagrams: 08/10/17 03:27 08/10/17 03:27 Phys Exam - Physical Examination Constitutional: NAD HEENT: PERRLA, moist MMs, sclera anicteric candidiasis orally Neck: supple, full ROM Respiratory: no wheezing, clear to auscultation bilateral Cardiovascular: RRR Gastrointestinal: soft, non-tender Musculoskeletal: no edema, pulses present Neurological: non-focal, moves all 4 limbs Psychiatric: normal affect, A&O x 3 Dx/Plan (1) Acute kidney injury Code(s): N17.9 - ACUTE KIDNEY FAILURE, UNSPECIFIED Status: Acute (2) Acute worsening of stage 3 chronic kidney disease Code(s): N18.3 - CHRONIC KIDNEY DISEASE, STAGE 3 (MODERATE) Status: Acute (3) Hypertension Code(s): I10 - ESSENTIAL (PRIMARY) HYPERTENSION Status: Chronic (4) SLE (systemic lupus erythematosus) Code(s): M32.9 - SYSTEMIC LUPUS ERYTHEMATOSUS, UNSPECIFIED Status: Chronic (5) Hyponatremia Code(s): E87.1 - HYPO-OSMOLALITY AND HYPONATREMIA Status: Acute - Plan cont current plan of care continue fluid resuscitation * .
[2017-08-10] MEDS: Loperamide HCl 2 MG CAP PO PRN (13:03)
[2017-08-10] MEDS: Acetaminophen 325 MG TAB PO PRN (16:46)
[2017-08-10] MEDS ORDERED: Nystatin 500,000 UNITS/5 ML UDCUP SSW SCH (23:00)
[2017-08-11] MEDS: Loperamide HCl 2 MG CAP PO PRN ×3 (01:42→21:29)
[2017-08-11 04:30] LABS: Anion Gap 12 mmol/L (10-20); BUN (Urea Nitrogen) 30 mg/dL (9.8-20.1); Calc. Creatinine Clearance 11 mL/min (70-130); Calcium 7.7 mg/dL (7.8-10.44); Carbon Dioxide 18 mmol/L (23-31); Chloride 105 mmol/L (98-107); Estimated GFR-MDRD 33; Glucose 86 mg/dL (80-115); Sodium 131 mmol/L (136-145)
[2017-08-11] MEDS: Acetaminophen 325 MG TAB PO PRN ×2 (04:30→17:13)
[2017-08-11] MEDS: Sodium Bicarbonate Tab 325 MG TAB PO SCH ×2 (08:07→21:29)
[2017-08-11] MEDS: Hydroxychloroquine Sulfate 200 MG TAB PO SCH (08:08)
[2017-08-11] MEDS: predniSONE 20 MG TAB PO SCH ×2 (08:08→17:08)
[2017-08-11] MEDS: Calcitriol 0.25 MCG CAP PO SCH (08:08)
[2017-08-11] MEDS: Nystatin 500,000 UNITS/5 ML UDCUP SSW SCH ×4 (08:09→23:55)
[2017-08-11] MEDS: Mycophenolate 250 MG CAP PO SCH ×2 (08:09→21:29)
[2017-08-11] MEDS ORDERED: Fluconazole 100 MG TAB PO SCH (12:59)
[2017-08-11] MEDS: Sodium Chloride 0.9% 1,000 ML IV SCH ×2 (13:44→23:55)
[2017-08-11] MEDS: Fluconazole 100 MG TAB PO SCH (13:44)
--- NOTE | 2017-08-11 15:38 | PDOC.PN ---
- Subjective Encounter Start Date: 08/11/17 Encounter Start Time: 15:36 Subjective: feels weak and tired.c/o nausea -: unable to drink liquids d/t nausea.still w diarrhea - Objective Resuscitation Status: Resuscitation Status FULL:Full Resuscitation MAR Reviewed: Yes Vital Signs & Weight: Vital Signs (12 hours) Temp Pulse Resp BP Pulse Ox 08/11/17 13:19 98.6 F 81 16 136/71 95 08/11/17 08:46 98.2 F 83 16 136/75 93 L 08/11/17 08:00 98.2 F 83 16 08/11/17 04:00 98.6 F 84 16 151/79 H 93 L Weight Weight 101 lb I&O: 08/10/17 08/11/17 08/12/17 06:59 06:59 06:59 Intake Total 1100 720 Balance 1100 720 Result Diagrams: 08/10/17 03:27 08/11/17 03:57 Additional Labs: Laboratory Tests 06/16/17 06/23/17 07/21/17 15:21 14:40 15:31 Creatinine 2.09 H 2.29 H 2.39 H 08/09/17 08/10/17 08/11/17 20:47 03:27 03:57 Creatinine 2.35 H 1.92 H 1.54 H Radiology Reviewed by me: Yes (US Abd-no gallstones) Phys Exam - Physical Examination Constitutional: NAD pale and tired looking HEENT: PERRLA, moist MMs, sclera anicteric oral thrush Neck: no nodes, no JVD, supple, full ROM Respiratory: no wheezing, no rales, no rhonchi, clear to auscultation bilateral Cardiovascular: RRR, no significant murmur, no rub, gallop Gastrointestinal: soft, non-tender, no distention, positive bowel sounds Musculoskeletal: no edema, pulses present Neurological: non-focal, normal sensation, moves all 4 limbs Psychiatric: normal affect, A&O x 3 Skin: no rash Dx/Plan (1) Acute kidney injury Code(s): N17.9 - ACUTE KIDNEY FAILURE, UNSPECIFIED Status: Acute (2) Oral thrush Code(s): B37.0 - CANDIDAL STOMATITIS Status: Acute (3) GERD (gastroesophageal reflux disease) Code(s): K21.9 - GASTRO-ESOPHAGEAL REFLUX DISEASE WITHOUT ESOPHAGITIS Status: Chronic (4) Hyperlipidemia Code(s): E78.5 - HYPERLIPIDEMIA, UNSPECIFIED Status: Chronic (5) Hypertension Code(s): I10 - ESSENTIAL (PRIMARY) HYPERTENSION Status: Chronic (6) SLE (systemic lupus erythematosus) Code(s): M32.9 - SYSTEMIC LUPUS ERYTHEMATOSUS, UNSPECIFIED Status: Chronic - Plan out of bed/ambulate, DVT proph w/SCDs renal Fx improved but pt lost IV access. -: unable to take muh Po.will restart IVF & recheck Cr in am -: add Po diflucan ? esophageal or more extensive pharyngeal paradise -: OOB today & likley Home in am tomorrow. -: will change ti Inpt d/t inabilty to take Po ,LUIS FELIPE,dehydration * . Review of Systems - Review of Systems Constitutional: weakness, malaise. negative: fever, chills, sweats, other ENT: Mouth Pain. negative: Ear Pain, Ear Discharge, Nose Pain, Nose Discharge, Nose Congestion, Mouth Swelling, Throat Pain, Throat Swelling, Other Respiratory: negative: Cough, Dry, Shortness of Breath, Hemoptysis, SOB with Excertion, Pleuritic Pain, Sputum, Wheezing Cardiovascular: negative: chest pain, palpitations, orthopnea, paroxysmal nocturnal dyspnea, edema, light headedness, other Gastrointestinal: Nausea, Abdominal Pain, Diarrhea Genitourinary: negative: Dysuria, Frequency, Incontinence, Hematuria, Retention , Other Musculoskeletal: negative: Neck Pain, Shoulder Pain, Arm Pain, Back Pain, Hand Pain, Leg Pain, Foot Pain, Other Neurological: negative: Weakness, Numbness, Incoordination, Change in Speech, Confusion, Seizures, Other - Medications/Allergies Allergies/Adverse Reactions: Allergies Allergy/AdvReac Type Severity Reaction Status Date / Time iron Allergy Severe Rash Verified 08/10/17 00:24 Sulfa (Sulfonamide Allergy Severe Rash Verified 08/10/17 00:24 Antibiotics) Medications: Current Medications Acetaminophen (Tylenol) 650 mg PO Q4H PRN PRN Reason: Headache/Fever or Pain Last Admin: 08/11/17 04:30 Dose: 650 mg Hydrocodone Bitart/Acetaminophen (Eidson 5/325) 1 tab PO Q4H PRN PRN Reason: Moderate Pain (4-6) Al Hydroxide/Mg Hydroxide (Maalox) 30 ml PO Q6H PRN PRN Reason: Heartburn or Indigestion Artificial Tears (Tears Naturale) 0 drop EA EYE PRN PRN PRN Reason: Dry Eyes Calcitriol (Rocaltrol) 0.25 mcg PO MWF [facility] Last Admin: 08/11/17 08:08 Dose: 0.25 mcg Clonidine (Catapres) 0.1 mg PO Q4H PRN PRN Reason: Systolic BP > 180 Fluconazole (Diflucan) 100 mg PO 1400 [facility] Last Admin: 08/11/17 13:44 Dose: 100 mg Guaifenesin (Robitussin Sf) 200 mg PO Q4H PRN PRN Reason: Cough Hydralazine HCl (Apresoline) 10 mg SLOW IVP Q4H PRN PRN Reason: Systolic BP > 180 Hydroxychloroquine Sulfate (Plaquenil) 300 mg PO DAILY [facility] Last Admin: 08/11/17 08:08 Dose: 300 mg Sodium Chloride (Normal Saline 0.9%) 1,000 mls @ 75 mls/hr IV .[id number] [facility] Last Admin: 08/11/17 13:44 Dose: 1,000 mls Loperamide HCl (Imodium) 2 mg PO PRN PRN PRN Reason: Diarrhea/Loose Stools Last Admin: 08/11/17 15:07 Dose: 2 mg Loratadine (Claritin) 10 mg PO DAILYPRN PRN PRN Reason: Sinus Symptoms Magnesium Hydroxide (Milk Of Magnesium) 30 ml PO DAILYPRN PRN PRN Reason: Constipation Metoprolol Succinate (Toprol Xl) 50 mg PO DAILY [facility] Last Admin: 08/11/17 08:09 Dose: 50 mg Mineral Oil/White Petrolatum (Eucerin Cream) 0 gm TOP BIDPRN PRN PRN Reason: Dry Skin Mycophenolate Mofetil (Cellcept) 500 mg PO BID [facility] Last Admin: 08/11/17 08:09 Dose: 500 mg Nystatin (Mycostatin) 500,000 units SSW QID [facility] Last Admin: 08/11/17 13:44 Dose: 500,000 units Ondansetron HCl (Zofran Odt) 4 mg PO Q6H PRN PRN Reason: Nausea/Vomiting Ondansetron HCl (Zofran) 4 mg IVP Q6H PRN PRN Reason: Nausea/Vomiting Last Admin: 08/10/17 07:51 Dose: 4 mg Pantoprazole Sodium (Protonix) 40 mg PO DAILY [facility] Last Admin: 08/11/17 08:09 Dose: 40 mg Phenol (Chloraseptic Elfrida 180 Ml Bot) 0 ml PO PRN PRN PRN Reason: Sore Throat Prednisone (Prednisone) 10 mg PO BID-[facility] Last Admin: 08/11/17 08:08 Dose: 10 mg Senna (Senokot) 2 tab PO HSPRN PRN PRN Reason: Constipation Sodium Bicarbonate (Bicarbonate, Sodium) 650 mg PO BID [facility] Last Admin: 08/11/17 08:07 Dose: 650 mg Sodium Chloride ([place] Nasal Elfrida 0.65%) 0 ml EA NARE QIDPRN PRN PRN Reason: Nasal Congestion Sodium Chloride (Flush - Normal Saline) 10 ml IVF Q12HR [facility] Sodium Chloride (Flush - Normal Saline) 10 ml IVF PRN PRN PRN Reason: Saline Flush Zolpidem Tartrate (Ambien) 5 mg PO HSPRN PRN PRN Reason: Insomnia
[2017-08-11 23:58] LABS: Creatinine, Urine 48.03 mg/dL (47-110)
[2017-08-12 04:50] LABS: Anion Gap 11 mmol/L (10-20); BUN (Urea Nitrogen) 24 mg/dL (9.8-20.1); Calc. Creatinine Clearance 28 mL/min (70-130); Calcium 7.7 mg/dL (7.8-10.44); Carbon Dioxide 20 mmol/L (23-31); Chloride 105 mmol/L (98-107); Estimated GFR-MDRD 38; Glucose 82 mg/dL (80-115); Sodium 132 mmol/L (136-145)
[2017-08-12] MEDS: Acetaminophen 325 MG TAB PO PRN ×2 (06:27→16:21)
--- NOTE | 2017-08-12 09:05 | CON ---
DATE OF CONSULTATION: 08/11/2016 REASON FOR CONSULTATION: Elevated creatinine. HISTORY OF PRESENT ILLNESS: This is a very pleasant 71-year-old female who was admitted to the hospital 08/10/2017 with a creatinine of 2.35, which improved to 1.9 on 08/10/2017 and 1.5 today. The patient denies headache, numbness, tingling or weakness. Denies any nausea, vomiting or chest pain. PAST MEDICAL HISTORY: Lupus nephritis, hypertension, osteoporosis, adrenal insufficiency, history of benign kidney tumor, history of irritable bowel syndrome, history of hysterectomy, splenectomy, ovarian mass, history of kidney biopsy. SOCIAL HISTORY: No alcohol or drug use. FAMILY HISTORY: Negative for ESRD. ALLERGIES: Reviewed. CURRENT MEDICATIONS: List reviewed. REVIEW OF SYSTEMS: A 15 point review of systems was performed and was negative except for positives noted above. GENERAL: Weakness- HEAD: Headache- NECK: No swelling or lumps. NOSE: No epistaxis or discharge. EYES: No diplopia or pain. RESPIRATORY: Dyspnea- CARDIOVASCULAR: Chest pain- GASTROINTESTINAL: Nausea- /BLUEPRINT BLOCKER: Hematuria- MUSCULOSKELETAL: No joint pain. NEUROPSYCHIATIC SYSTEMS: No suicidal ideation. No ideation. SKIN: Denies any rash or ulcer. CONSTITUTIONAL: No fever or chills. PHYSICAL EXAMINATION: GENERAL: Patient was awake, alert. VITAL SIGNS: Afebrile, pulse 82, breathing at 16, blood pressure 134/75. OBJECTIVE: See above. Awake, alert, in no acute distress. GENERAL APPEARANCE AND MENTAL STATUS: Fair. HEAD/NECK: Normocephalic. Atraumatic. EYES: EOMI. No deformity. EARS: Clear. No ulcers. NOSE: Intact. No lesions. MOUTH: Clear. No discharge. THROAT: Clear. No exudate. LUNGS: Clear. No crackles. CARDIAC: S1, S2. No rub. ABDOMEN: Benign. BS+. GENITALIA/RECTUM: Villanueva absent. BACK/EXTREMITIES: Edema 0+ Ulcer- NEUROLOGICAL: Alert and motor intact. SKIN: Rash- Bruise- LYMPHATICS: Edema- Ulcer- LABORATORY: Creatinine 1.3. ASSESSMENT AND RECOMMENDATIONS: 1. Chronic kidney disease stage 3, due to lupus nephritis, stable. 2. Lupus nephritis, advised follow up with Nephrology. 3. Proteinuria not a candidate for ALEXEY inhibitor. 4. Acute kidney injury, improved. 5. Hypertension, stable. 6. Medications based on glomerular filtration rate are appropriate. No indication for dialysis at this time. MTDD
[2017-08-12] MEDS: Loperamide HCl 2 MG CAP PO PRN ×2 (09:47→20:26)
[2017-08-12] MEDS: Sodium Bicarbonate Tab 325 MG TAB PO SCH ×2 (09:47→20:26)
[2017-08-12] MEDS: Hydroxychloroquine Sulfate 200 MG TAB PO SCH (09:47)
[2017-08-12] MEDS: Nystatin 500,000 UNITS/5 ML UDCUP SSW SCH ×4 (09:47→20:26)
[2017-08-12] MEDS: predniSONE 20 MG TAB PO SCH ×2 (09:48→16:17)
[2017-08-12] MEDS: Mycophenolate 250 MG CAP PO SCH ×2 (09:48→20:26)
--- NOTE | 2017-08-12 10:23 | PRG ---
DATE OF SERVICE: 08/12/2017 SUBJECTIVE: This is a 71-year-old female being seen for acute kidney injury with improving creatinine. The patient denies any nausea, vomiting, or chest pain. PHYSICAL EXAMINATION: GENERAL: Patient is awake, alert. VITAL SIGNS: Afebrile, pulse 82, breathing at 16, blood pressure 128/69. OBJECTIVE: See above. Awake, alert, in no acute distress. GENERAL APPEARANCE AND MENTAL STATUS: Fair. HEAD/NECK: Normocephalic. Atraumatic. EYES: EOMI. No deformity. EARS: Clear. No ulcers. NOSE: Intact. No lesions. MOUTH: Clear. No discharge. THROAT: Clear. No exudate. LUNGS: Clear. No crackles. CARDIAC: S1, S2. No rub. ABDOMEN: Benign. BS+. GENITALIA/RECTUM: Villanueva absent. BACK/EXTREMITIES: Edema 0+ Ulcer- NEUROLOGICAL: Alert and motor intact. SKIN: Rash- Bruise- LYMPHATICS: Edema- Ulcer- LABORATORY: Creatinine 1.3. ASSESSMENT AND RECOMMENDATIONS: 1. Proteinuria, non-nephrotic range, follows with Dr. Carter. 2. Anemia, stable. 3. Medications based on GFR are appropriate. 4. CKD stage III 5. LUIS FELIPE improved. MTDD
[2017-08-12] MEDS: Ondansetron HCl/PF 4 MG/2 ML Vial IVP PRN (10:43)
[2017-08-12] MEDS: Fluconazole 100 MG TAB PO SCH (13:38)
--- NOTE | 2017-08-12 14:46 | RAD ---
CHEST ONE VIEW: History: Dyspnea. Comparison: 08-09-17 FINDINGS: Cardiac silhouette is magnified by projection. Pulmonary vasculature is more engorged. Mediastinum is midline. Linear opacity at the left base has worsened. Nodular densities projecting over the lungs a re stable and consistent with healing rib fractures. IMPRESSION: Increase in pulmonary vascular congestion. Increase in left basilar atelectasis. POS: [facility]
[2017-08-12] MEDS ORDERED: Aspirin 325 mg Enteric Coated Tablet PO SCH (15:00)
[2017-08-12] MEDS ORDERED: Furosemide 20 MG/2 ML VIAL SLOW IVP SCH (15:30)
[2017-08-12 15:35] LABS: CKMB 0.6 ng/mL (0-6.6); Troponin I 0.021 ng/mL (< 0.028)
--- NOTE | 2017-08-12 17:10 | PDOC.PN ---
- Subjective Encounter Start Date: 08/12/17 Encounter Start Time: 17:08 Subjective: feels tired.c/o nausea,poor appetite,weakness -: c/o R sided transient chest pain - Objective MAR Reviewed: Yes Vital Signs & Weight: Vital Signs (12 hours) Temp Pulse Resp BP Pulse Ox 08/12/17 14:30 98.7 F 84 20 131/69 91 L 08/12/17 12:30 98.1 F 81 17 138/72 93 L 08/12/17 08:05 99.6 F 86 15 128/69 90 L 08/12/17 08:02 99.6 F 86 15 90 L I&O: 08/11/17 08/12/17 08/13/17 06:59 06:59 06:59 Intake Total 2675 Balance 2675 Result Diagrams: 08/10/17 03:27 08/12/17 03:39 Additional Labs: Laboratory Tests 08/12/17 14:58 CK-MB (CK-2) 0.6 Troponin I 0.021 EKG Reviewed by me: Yes (No STEMI) Phys Exam - Physical Examination Constitutional: NAD HEENT: PERRLA, moist MMs, sclera anicteric, oral pharynx no lesions Neck: no nodes, no JVD, supple, full ROM Respiratory: no wheezing, no rales, no rhonchi, clear to auscultation bilateral Cardiovascular: RRR, no significant murmur Gastrointestinal: soft, non-tender, no distention, positive bowel sounds Musculoskeletal: no edema, pulses present Neurological: non-focal, normal sensation, moves all 4 limbs Psychiatric: normal affect, A&O x 3 Skin: no rash Dx/Plan (1) Acute kidney injury Code(s): N17.9 - ACUTE KIDNEY FAILURE, UNSPECIFIED Status: Acute (2) Oral thrush Code(s): B37.0 - CANDIDAL STOMATITIS Status: Acute (3) GERD (gastroesophageal reflux disease) Code(s): K21.9 - GASTRO-ESOPHAGEAL REFLUX DISEASE WITHOUT ESOPHAGITIS Status: Chronic (4) Hyperlipidemia Code(s): E78.5 - HYPERLIPIDEMIA, UNSPECIFIED Status: Chronic (5) Hypertension Code(s): I10 - ESSENTIAL (PRIMARY) HYPERTENSION Status: Chronic (6) SLE (systemic lupus erythematosus) Code(s): M32.9 - SYSTEMIC LUPUS ERYTHEMATOSUS, UNSPECIFIED Status: Chronic - Plan DVT proph w/SCDs EKG negative for ac changes. Cardiac enzymes NL.likley anxiety.ASA given -: renal Fx better.Remains O2 dependent .CXR shows Edema -: will give 1 dose lasix & re-eval in am for DC -: Hold DC for now.HD stable.meds as belwo. -: am labs * . Review of Systems - Review of Systems Constitutional: weakness, malaise ENT: negative: Ear Pain, Ear Discharge, Nose Pain, Nose Discharge, Nose Congestion, Mouth Pain, Mouth Swelling, Throat Pain, Throat Swelling, Other Respiratory: negative: Cough, Dry, Shortness of Breath, Hemoptysis, SOB with Excertion, Pleuritic Pain, Sputum, Wheezing Cardiovascular: negative: chest pain, palpitations, orthopnea, paroxysmal nocturnal dyspnea, edema, light headedness, other Gastrointestinal: Nausea, Diarrhea Genitourinary: negative: Dysuria, Frequency, Incontinence, Hematuria, Retention , Other Musculoskeletal: negative: Neck Pain, Shoulder Pain, Arm Pain, Back Pain, Hand Pain, Leg Pain, Foot Pain, Other Neurological: negative: Weakness, Numbness, Incoordination, Change in Speech, Confusion, Seizures, Other - Medications/Allergies Allergies/Adverse Reactions: Allergies Allergy/AdvReac Type Severity Reaction Status Date / Time iron Allergy Severe Rash Verified 08/10/17 00:24 Sulfa (Sulfonamide Allergy Severe Rash Verified 08/10/17 00:24 Antibiotics) Medications: Current Medications Acetaminophen (Tylenol) 650 mg PO Q4H PRN PRN Reason: Headache/Fever or Pain Last Admin: 08/12/17 16:21 Dose: 650 mg Hydrocodone Bitart/Acetaminophen ([place] 5/325) 1 tab PO Q4H PRN PRN Reason: Moderate Pain (4-6) Al Hydroxide/Mg Hydroxide (Maalox) 30 ml PO Q6H PRN PRN Reason: Heartburn or Indigestion Artificial Tears (Tears Naturale) 0 drop EA EYE PRN PRN PRN Reason: Dry Eyes Aspirin (Ecotrin) 325 mg PO NOW [facility] Stop: 08/12/17 18:00 Last Admin: 08/12/17 14:57 Dose: 325 mg Calcitriol (Rocaltrol) 0.25 mcg PO [facility] [place] Last Admin: 08/11/17 08:08 Dose: 0.25 mcg Clonidine (Catapres) 0.1 mg PO Q4H PRN PRN Reason: Systolic BP > 180 Fluconazole (Diflucan) 100 mg PO 1400 [facility] Last Admin: 08/12/17 13:38 Dose: 100 mg Furosemide (Lasix) 20 mg SLOW IVP 1530 [facility] Stop: 08/12/17 18:30 Last Admin: 08/12/17 16:17 Dose: 20 mg Guaifenesin (Robitussin Sf) 200 mg PO Q4H PRN PRN Reason: Cough Hydralazine HCl (Apresoline) 10 mg SLOW IVP Q4H PRN PRN Reason: Systolic BP > 180 Hydroxychloroquine Sulfate (Plaquenil) 300 mg PO DAILY [facility] Last Admin: 08/12/17 09:47 Dose: 300 mg Loperamide HCl (Imodium) 2 mg PO PRN PRN PRN Reason: Diarrhea/Loose Stools Last Admin: 08/12/17 09:47 Dose: 2 mg Loratadine (Claritin) 10 mg PO DAILYPRN PRN PRN Reason: Sinus Symptoms Magnesium Hydroxide (Milk Of Magnesium) 30 ml PO DAILYPRN PRN PRN Reason: Constipation Metoprolol Succinate (Toprol Xl) 50 mg PO DAILY [facility] Last Admin: 08/12/17 09:48 Dose: 50 mg Mineral Oil/White Petrolatum (Eucerin Cream) 0 gm TOP BIDPRN PRN PRN Reason: Dry Skin Mycophenolate Mofetil (Cellcept) 500 mg PO BID [facility] Last Admin: 08/12/17 09:48 Dose: 500 mg Nystatin (Mycostatin) 500,000 units SSW QID [facility] Last Admin: 08/12/17 16:17 Dose: 500,000 units Ondansetron HCl (Zofran Odt) 4 mg PO Q6H PRN PRN Reason: Nausea/Vomiting Ondansetron HCl (Zofran) 4 mg IVP Q6H PRN PRN Reason: Nausea/Vomiting Last Admin: 08/12/17 10:43 Dose: 4 mg Pantoprazole Sodium (Protonix) 40 mg PO DAILY [facility] Last Admin: 08/12/17 09:49 Dose: 40 mg Phenol (Chloraseptic [place] 180 Ml Bot) 0 ml PO PRN PRN PRN Reason: Sore Throat Prednisone (Prednisone) 10 mg PO BID-[facility] Last Admin: 08/12/17 16:17 Dose: 10 mg Senna (Senokot) 2 tab PO HSPRN PRN PRN Reason: Constipation Sodium Bicarbonate (Bicarbonate, Sodium) 650 mg PO BID [facility] Last Admin: 08/12/17 09:47 Dose: 650 mg Sodium Chloride ([place] Nasal [place] 0.65%) 0 ml EA NARE QIDPRN PRN PRN Reason: Nasal Congestion Sodium Chloride (Flush - Normal Saline) 10 ml IVF Q12HR [facility] Last Admin: 08/12/17 09:53 Dose: 10 ml Sodium Chloride (Flush - Normal Saline) 10 ml IVF PRN PRN PRN Reason: Saline Flush Zolpidem Tartrate (Ambien) 5 mg PO HSPRN PRN PRN Reason: Insomnia
[2017-08-13] MEDS: Ondansetron HCl/PF 4 MG/2 ML Vial IVP PRN (02:27)
[2017-08-13 06:19] LABS: Anion Gap 12 mmol/L (10-20); BUN (Urea Nitrogen) 23 mg/dL (9.8-20.1); Calc. Creatinine Clearance 28 mL/min (70-130); Calcium 7.7 mg/dL (7.8-10.44); Carbon Dioxide 20 mmol/L (23-31); Chloride 103 mmol/L (98-107); Estimated GFR-MDRD 38; Glucose 78 mg/dL (80-115); Potassium 3.8 mmol/L (3.5-5.1); Sodium 131 mmol/L (136-145)
[2017-08-13] MEDS: Mycophenolate 250 MG CAP PO SCH (09:18)
[2017-08-13] MEDS: predniSONE 20 MG TAB PO SCH (09:18)
[2017-08-13] MEDS: Hydroxychloroquine Sulfate 200 MG TAB PO SCH (09:18)
[2017-08-13] MEDS: Calcitriol 0.25 MCG CAP PO SCH (09:18)
[2017-08-13] MEDS: Acetaminophen 325 MG TAB PO PRN (09:19)
[2017-08-13] MEDS: Nystatin 500,000 UNITS/5 ML UDCUP SSW SCH ×2 (09:19→13:05)
[2017-08-13] MEDS: Sodium Bicarbonate Tab 325 MG TAB PO SCH (09:19)
--- NOTE | 2017-08-13 10:05 | PRG ---
DATE OF SERVICE: 08/13/2017 SUBJECTIVE: This 71-year-old lady being seen for acute kidney injury. The patient denies any nausea , vomiting, or chest pain. PHYSICAL EXAMINATION: GENERAL: Patient is awake, alert. VITAL SIGNS: Afebrile, pulse 86, breathing at 16, blood pressure 136/79. HEAD/NECK: Normocephalic. Atraumatic. EYES: EOMI. No deformity. EARS: Clear. No ulcers. NOSE: Intact. No lesions. MOUTH: Clear. No discharge. THROAT: Clear. No exudate. LUNGS: Clear. No crackles. CARDIAC: S1, S2. No rub. ABDOMEN: Benign. BS+. GENITALIA/RECTUM: Villanueva absent. BACK/EXTREMITIES: Edema 0+ Ulcer- NEUROLOGICAL: Alert and motor intact. SKIN: Rash- Bruise- LYMPHATICS: Edema- Ulcer- LABORATORY DATA: Show hemoglobin 10.4, creatinine 1.3. ASSESSMENT AND RECOMMENDATIONS: 1. Chronic kidney disease, stage 3, stable. 2. Hypertension, stable. 3. Anemia, stable. 4. Medications based on glomerular filtration rate are appropriate. 5. Proteinuria and lupus nephritis follow up with Dr. Carter.
--- NOTE | 2017-08-13 11:21 | PDOC.PN ---
- Subjective Encounter Start Date: 08/13/17 Encounter Start Time: 08:00 Subjective: feels better, is amb in room -: no sob - Objective MAR Reviewed: Yes Vital Signs & Weight: Vital Signs (12 hours) Temp Pulse Resp BP Pulse Ox 08/13/17 08:02 98.9 F 83 16 94 L 08/13/17 07:35 98.9 F 83 16 158/71 H 94 L 08/13/17 07:30 86 16 94 L 08/13/17 04:24 99.6 F 79 18 136/79 96 08/13/17 00:00 98.3 F 85 19 135/75 90 L I&O: 08/12/17 08/13/17 08/14/17 06:59 06:59 06:59 Intake Total 2675 1470 Balance 2675 1470 Result Diagrams: 08/10/17 03:27 08/13/17 05:34 Phys Exam - Physical Examination HEENT: PERRLA, moist MMs Neck: no JVD, supple Respiratory: no wheezing, no rales, no rhonchi Cardiovascular: RRR, no significant murmur Gastrointestinal: soft, non-tender, positive bowel sounds Musculoskeletal: no edema, pulses present Neurological: non-focal, moves all 4 limbs Psychiatric: A&O x 3 Dx/Plan (1) Acute worsening of stage 3 chronic kidney disease Code(s): N18.3 - CHRONIC KIDNEY DISEASE, STAGE 3 (MODERATE) Status: Acute (2) Oral thrush Code(s): B37.0 - CANDIDAL STOMATITIS Status: Acute (3) GERD (gastroesophageal reflux disease) Code(s): K21.9 - GASTRO-ESOPHAGEAL REFLUX DISEASE WITHOUT ESOPHAGITIS Status: Chronic Qualifiers: Esophagitis presence: esophagitis presence not specified Qualified Code(s) : K21.9 - Gastro-esophageal reflux disease without esophagitis (4) Hyperlipidemia Code(s): E78.5 - HYPERLIPIDEMIA, UNSPECIFIED Status: Chronic Qualifiers: Hyperlipidemia type: unspecified Qualified Code(s): E78.5 - Hyperlipidemia , unspecified (5) Hypertension Code(s): I10 - ESSENTIAL (PRIMARY) HYPERTENSION Status: Chronic Qualifiers: Hypertension type: essential hypertension Qualified Code(s): I10 - Essential (primary) hypertension (6) SLE (systemic lupus erythematosus) Code(s): M32.9 - SYSTEMIC LUPUS ERYTHEMATOSUS, UNSPECIFIED Status: Chronic Qualifiers: Systemic lupus erythematosus type: unspecified (7) Chronic anemia Code(s): D64.9 - ANEMIA, UNSPECIFIED Status: Chronic - Plan got 1 dose lasix yesterday, feels better now -: HH on discharge today -: to continue her cellcept, plaquenel, toprol and prednisone as before -: diflucan for oral thrush -: dc pt home * .
[2017-08-13 12:09] VITALS: BP 127/70; TEMP 98.3
[2017-08-13] MEDS: Loperamide HCl 2 MG CAP PO PRN (13:06)
[2017-08-13] MEDS: Fluconazole 100 MG TAB PO SCH (13:09)
--- NOTE | 2017-08-13 14:54 | DIS ---
DATE OF ADMISSION: 08/10/2017 DATE OF DISCHARGE: 08/13/2017 DISCHARGE DISPOSITION: To home. PRIMARY DISCHARGE DIAGNOSES: Acute worsening of stage III chronic kidney disease, oral thrush. SECONDARY DISCHARGE DIAGNOSES: Deconditioning, hypertension, dyslipidemia, chronic anemia, history of lupus, gastroesophageal reflux disease. PROCEDURES DONE DURING HOSPITALIZATION: Abdominal ultrasound done showed hyperechoic renal parenchyma, no evidence of gallstones, normal hepatopetal flow seen in the portal system. Chest x-ray done showed no acute cardiopulmonary process. White count of 10, H&H 10 and 33, platelet count 238 with 96% neutrophils. Discharge BUN and creatinine is 23 and 1.3. Admitting BUN and creatinine were 47 and 2.3, troponin x2 is negative. BNP was 72. DISCHARGE MEDICATIONS: Norvasc 10 mg daily, calcitriol 0.25 mcg p.o. on Friday , Friday, Friday, vitamin D3 of 5000 units p.o. daily, fluconazole 100 mg p.o. daily for another 4 days, Lasix 20 mg p.r.n., Plaquenil 300 mg p.o. daily, Toprol-XL 50 mg p.o. daily, CellCept 1000 mg twice daily, prednisone 20 mg daily , Forteo 20 mcg p.o. subcutaneously daily. ALLERGIES: SULFA and IRON. INPATIENT CONSULTS: Dr. Yates for Nephrology. BRIEF COURSE DURING HOSPITALIZATION: Patient initially came to ER with complaints of generalized weakness, dizziness, and upper abdominal pain. She also had diarrhea, which was more than her usual amounts. In view of this history and her being immunosuppressed, patient was closely monitored. She has also had mild acute kidney injury on top of her chronic kidney disease stage III with history of lupus. She was gently hydrated initially. She has deconditioning and home health with PT and nursing will be arranged at the time of discharge. She has otherwise remained hemodynamically stable. Please see a face to face documentation on Simparel for the day of discharge. KADEN
== END 2017-08-13 13:39 | disposition home health service (06) | DRG 683 ==
LOC: SCSER 20:22 → INTOOBSV 22:22 → SURG A 22:22 → OBSVTOIN 08-11 13:04
PROVIDERS: ADMIT Internal Medicine; ATTEND Internal Medicine
DX: N17.9 Acute kidney failure, unspecified (principal); E87.1 Hypo-osmolality and hyponatremia; E87.2 Acidosis; B37.0 Candidal stomatitis; M32.9 Systemic lupus erythematosus, unspecified; E27.40 Unspecified adrenocortical insufficiency; E86.0 Dehydration; M81.0 Age-related osteoporosis without current pathological fracture; K58.9 Irritable bowel syndrome, unspecified; I12.9 Hypertensive chronic kidney disease with stage 1 through stage 4 chronic kidney disease, or unspecified chronic kidney disease; N18.3 Chronic kidney disease, stage 3 (moderate); E78.5 Hyperlipidemia, unspecified; K21.9 Gastro-esophageal reflux disease without esophagitis; D64.9 Anemia, unspecified
CPT/HCPCS: 36415; 71045; 76705; 80048; 80053; 80069; 82533; 82553; 82570; 83605; 83880; 84156; 84484; 85025; 93005; 93010; 96360; A4216; J1940; J2405; J7506; J7517; Q0162

== ENCOUNTER 2017-08-24 16:10 | Inpatient (IN) | payer MEDICARE, OTHER ==
[2017-08-24 17:28] LABS: ALT (SGPT) 10 U/L (8-55); AST (SGOT) 24 U/L (5-34); Albumin 3.6 g/dL (3.4-4.8); Alkaline Phosphatase 122 U/L (40-150); Anion Gap 19 mmol/L (10-20); BUN (Urea Nitrogen) 47 mg/dL (9.8-20.1); Bilirubin, Total 0.6 mg/dL (0.2-1.2); Calc. Creatinine Clearance 0 mL/min (70-130); Calcium 8.9 mg/dL (7.8-10.44); Carbon Dioxide 16 mmol/L (23-31); Chloride 99 mmol/L (98-107); Estimated GFR-MDRD 22; Globulin 2.9 g/dL (2.4-3.5); Glucose 81 mg/dL (80-115); Lipase 256 U/L (8-78); Potassium 5.2 mmol/L (3.5-5.1); Protein, Total 6.5 g/dL (6.0-8.3); Sodium 129 mmol/L (136-145)
[2017-08-24 18:06] LABS: Acanthocytes SLIGHT = 1-5 cells (100X) (None Seen); Anisocytosis SLIGHT = 6-15 cells (100X) (0-5/hpf); Band 24 % (5-11); Burr Cells SLIGHT = 2-5 cells (100X) (0-1/hpf); Dohle Bodies SLIGHT; Hemoglobin 11.3 g/dL (12.0-16.0); Howell Jolly Bodies SLIGHT = 1-2 cells (100X) (None Seen); Large Platelets SLIGHT; MDiff Complete? YES; Mean Corpuscular HGB CONC 30.8 g/dL (32.0-36.0); Mean Corpuscular Hemoglobin 29.1 pg (27.0-31.0); Mean Corpuscular Volume 94.5 fl (81.0-99.0); Mean Platelet Volume 12.4 fL (7.4-10.4); Metamyelocyte 2 % (0-0); Monocytes 2 % (0-10); Neutrophil 72 % (42-75); Nucleated RBC 3 % (0); Ovalocytes SLIGHT = 2-5 cells (100X) (0-1/hpf); PLT Morphology Comment Appears Adequate; Pappenheimer Bodies SLIGHT = 1-2 cells (100X) (None Seen); Platelet Count 200 thou/uL (130-400); Poikilocytosis SLIGHT = 6-15 cells (100X) (0-5/hpf); Polychromasia MODERATE = 3-4 cells (100X) (0-2/hpf); RBC Distribution Width 16.1 % (11.5-14.5); Red Blood Cell (RBC) Count 3.89 mill/uL (4.20-5.40); Schistocytes SLIGHT = 2-5 cells (100X) (0-1/hpf); Spherocytes SLIGHT = 1-5 cells (100X) (None Seen); Target Cells SLIGHT = 2-5 cells (100X) (0-1/hpf); Tear Drops SLIGHT = 2-5 cells (100X) (0-1/hpf); White Blood Cell (WBC) Count 12.5 thou/uL (4.8-10.8)
[2017-08-24 18:35] LABS: Bilirubin Negative (Negative); Blood, Urine Negative (Negative); Clarity CLOUDY (Clear); Glucose, Urine (Dipstick) Negative (Negative); Leukocyte Small (Negative); Nitrite Positive (Negative); Protein, Urine (Dipstick) 100 mg/dL (Neg-Trace); Specific Gravity, Urine 1.016 (1.002-1.036); Urobilinogen 0.2 mg/dL (0.2-1.0); pH, Urine 5.5 (5.0-9.0)
[2017-08-24 18:37] LABS: Bacteria/HPF 4+ HPF (None Seen); Hyaline Casts/LPF 0-3 HYALINE CAST LPF (0-3 Hyaline); RBC/HPF 0-3 HPF (0-3); Squamous Epithelial 0-3 HPF (0-3)
[2017-08-24 18:44] LABS: Renal Epithelial None Seen HPF (0-3); Transitional Epithelial NONE SEEN HPF (0-3)
[2017-08-24] MEDS ORDERED: Dextrose 5 % And 0.9 % NaCl 1,000 ML IV SCH (22:26)
[2017-08-25] MEDS ORDERED: Sodium Chloride 0.9% 1,000 ML IV SCH (00:47)
[2017-08-25] MEDS ORDERED: Aspirin/APAP/Caffeine Tab (Excedrin Migraine) PO PRN (00:47)
[2017-08-25] MEDS ORDERED: HYDROcodone/Acetaminophen 5/325 mg Tablet PO PRN (00:47)
[2017-08-25] MEDS ORDERED: HYDROcodone/Acetaminophen 10/325 mg Tablet PO PRN (00:47)
[2017-08-25] MEDS: Sodium Chloride 0.9% 1,000 ML IV SCH ×4 (02:21→22:07)
--- NOTE | 2017-08-25 03:43 | HP ---
DATE OF ADMISSION: 08/24/2017 TIME OF SERVICE: 2350. PRIMARY CARE PHYSICIAN: Sergio Sen MD PRIMARY RACKMAN: Alessandro Arguelles MD PRIMARY LANGUAGE INTERPRETER: Kuldeep Sui MD PRIMARY PHOTOVOLTAIC TECHNICIAN: Eriberto Yates MD CHIEF COMPLAINT: Nausea, vomiting, weakness. HISTORY OF PRESENT ILLNESS: Ms. Burnett is a 71-year-old [place] female with a history of SL E, rheumatoid arthritis, osteoporosis from chronic steroid use and secondary adrenal insufficiency, i rritable bowel syndrome, chronic diarrhea who was brought to the emergency department today by family for ongoing weakness. The patient has had a problem really since April. She has had a couple of urinary tract infections, the last requiring IV antibiotics due to septicemia. She finishes up with Dr. Phillips sometime in 05/2017. Since that time, she has been doing pretty well until 08/11/2017, she developed more weakness and elena rrhea. She was admitted to the hospital here from 08/11 to 08/13, during that time received IV fluid s, oxygen, and stool studies. She was subsequently discharged on the and doing fairly well. Within 24 hours of discharge, she had increasing weakness, and has had continued diarrhea. She says the stool now is reddish color. She denies any fevers or chills, diffuse abdominal pain, ri ght more than left. No fevers or chills, no rigors. She says she has felt feverish, but takes Exced rin for her rheumatoid arthritis pain and seems to keep her from having any high temperatures. She presents to the emergency room for evaluation, white blood cell count mildly elevated due to her steroids, she was found to have acute kidney injury with a creatinine of 2.24 and a BUN of 47. Her b icarbonate was low at 16, and we were subsequently called for admit. Currently, she is feeling okay. I have discussed the case with her and her daughter at the bedside, and answered all questions. PAST MEDICAL HISTORY: 1. SLE. 2. Rheumatoid arthritis. 3. Hypertension. 4. Osteoporosis. 5. Adrenal insufficiency, secondary to prednisone. 6. Benign left renal tumor. 7. Left ovarian mass, status post removal. 8. Irritable bowel syndrome, has not seen a GI doctor in about 2 years. PAST SURGICAL HISTORY: Include; 1. Hysterectomy. 2. Splenectomy. 3. Left ovarian mass. 4. Bilateral cataracts. HOME MEDICATIONS: 1. Imodium p.r.n. 2. Excedrin p.r.n. 3. Simethicone p.r.n. 4. Nystatin 2 mL swish and swallow daily as needed. 5. Protonix 40 mg daily. 6. CellCept 1000 mg p.o. b.i.d. 7. Prednisone 25 mg p.o. daily. 8. Plaquenil 300 mg p.o. daily. 9. Norvasc 10 mg daily. 10. Calcitriol 0.25 mg p.o. on Friday, Friday, and Friday. 11. Toprol-XL 100 mg daily. 12. Lasix 20 mg p.r.n. is not taken in some time. ALLERGIES: IRON and SULFA. FAMILY HISTORY: Negative for clotting or bleeding disorder, no immune dysfunction. She denies any a utoimmune disorders. No premature coronary artery disease. SOCIAL HISTORY: Negative for habits x3. She lives with family and her daughter accompanies her. REVIEW OF SYSTEMS: A 10-point review of systems was performed, negative for all systems except as st ated per the HPI. PHYSICAL EXAMINATION: VITAL SIGNS: Temperature 97.4, pulse 66, blood pressure 124/73, respiratory rate 12, satting 97% on room air. Her T-max was 99.0 in the ER. GENERAL: She is awake. She is alert. She is oriented x3, cachectic looking frail [place] fe male. She is in no acute distress. HEENT: Normocephalic, atraumatic. Pupils are equal, round, and react to light bilaterally. She has temporal wasting. Mucous membranes are moist. She has no thrush. NECK: Supple. She has no lymphadenopathy, JVD, or thyromegaly. She has normal carotid upstroke. I do not appreciate bruits. LUNGS: Clear to auscultation bilaterally without wheezes, rales, or rhonchi. She has no prolonged e xpiratory phase. She has a symmetrical chest excursion and good air movement. CARDIOVASCULAR: She has normal S1, S2. No S3, S4. She has a faint 2/6 systolic ejection murmur at the right upper sternal border. ABDOMEN: Soft. It is diffusely tender mostly in the lateral reaches. She has no rebound, rigidity, or guarding. She has hyperactive bowel sounds present upper quadrant. EXTREMITIES: Show no signs of clubbing. She has no edema. She has 2+ peripheral pulses in the dors evy pedis and posterior tibial arteries. SKIN: Warm, moist, and well perfused. She has no other rash or lesions. MUSCULOSKELETAL: Large joints appear uninflamed. There is no palpable effusion. She has a mild uln ar deformity and MCP joint inflammation. NEUROLOGIC: Cranial nerves II through XII were grossly intact. She has no focal neurologic deficits . She has 4/5 strength in all 4 extremities. PSYCHIATRIC: She has normal speech pattern. LABORATORY DATA: Sodium 129, potassium 5.2, chloride 99, bicarbonate 16, BUN 47, creatinine 2.24 up from 1.2 about a month ago, calcium of 8.9, glucose 81. Liver functions are completely within normal limits. CBC showed a white count of 12.5. She has 72% granulocytes, 24% bands. Hemoglobin 11.3, h ematocrit 30, and platelets 200,000. Lipase is slightly elevated to 56. Urinalysis showed 11-20 whi te blood cells, 4+ bacteria, positive nitrite, and small amount of esterase. RADIOGRAPHIC STUDIES: None. ASSESSMENT AND PLAN: 1. Urinary tract infection. I do not think she is septic. Her white count is up secondary to stero ids, though she does have 24% bands. Watch her counts very closely. Heart rate is normal, though chance hsu is on Toprol. She had no fevers. We will treat her with cefepime 1 gram q.12 hours based on renal function. I think her actual creatinine clearance is about double what is calculated currently. 2. Acute kidney injury: Creatinine is up to 2.24. She sees Dr. Yates, we will consult him for his r ecommendations. I suspect this as prerenal azotemia. We will continue to hydrate her with a 1-liter bolus here and then 150 mL per hour normal saline then after. 3. Systemic lupus erythematosus/rheumatoid arthritis. She is on prednisone 25 mg a day, CellCept 10 00 mg b.i.d., and Plaquenil 300 mg daily. We will continue these. They consider putting her on stre ss dose steroids, but I do not feel she is septic, so hold off on any Solu-Medrol at present. 4. Irritable bowel syndrome. She continues to have multiple bowel movements with food. We will ask GI to evaluate her. She has not seen a GI doctor in some time. In the meantime, we will check a st ool for Escherichia coli, Campylobacter, Salmonella, and O&P. We will also check for clostridium dif f given that she has been on IV antibiotics in the last couple of months. 5. Severe dehydration: Patient is emaciated, she has a creatinine up to 2.24 with a BUN of 47, cert ainly greater than 20:1 ratio. We will continue IV fluids. 6. Severe protein-calorie malnutrition: The patient eats very small amounts during the day. We bernard l continue her on a renal diet. We will add Nepro t.i.d. with meals. We will ask her maintenance journeyman t o see her calorie counts and dietary recommendations.
--- NOTE | 2017-08-25 09:03 | PDOC.PN ---
- Subjective Encounter Start Date: 08/25/17 Encounter Start Time: 07:20 -: old records requested/rev pt is very weak, has right side abdominal pain, has diarrhoea, no fever Patient seen and examined. No new complaints. No overnight events - Objective MAR Reviewed: Yes Vital Signs & Weight: Weight Admit Weight 90 lb Weight 90 lb Result Diagrams: 08/24/17 17:38 08/24/17 17:03 Phys Exam - Physical Examination Constitutional: NAD HEENT: PERRLA, moist MMs, sclera anicteric Neck: no JVD, supple Respiratory: no wheezing, no rales, no rhonchi Cardiovascular: RRR, no significant murmur, no rub Gastrointestinal: soft, no distention, positive bowel sounds right side abdominal pain Musculoskeletal: no edema, pulses present Neurological: non-focal, normal sensation Lymphatic: no nodes Psychiatric: normal affect, A&O x 3 Skin: no rash, normal turgor Dx/Plan (1) Acute worsening of stage 3 chronic kidney disease Code(s): N18.3 - CHRONIC KIDNEY DISEASE, STAGE 3 (MODERATE) Status: Acute (2) Gastroenteritis Code(s): K52.9 - NONINFECTIVE GASTROENTERITIS AND COLITIS, UNSPECIFIED Status : Acute (3) Hyponatremia Code(s): E87.1 - HYPO-OSMOLALITY AND HYPONATREMIA Status: Acute (4) Sepsis Code(s): A41.9 - SEPSIS, UNSPECIFIED ORGANISM Status: Acute (5) UTI (urinary tract infection) Status: Acute (6) Chronic anemia Code(s): D64.9 - ANEMIA, UNSPECIFIED Status: Chronic (7) GERD (gastroesophageal reflux disease) Code(s): K21.9 - GASTRO-ESOPHAGEAL REFLUX DISEASE WITHOUT ESOPHAGITIS Status: Chronic Qualifiers: Esophagitis presence: esophagitis presence not specified Qualified Code(s) : K21.9 - Gastro-esophageal reflux disease without esophagitis (8) Hyperlipidemia Code(s): E78.5 - HYPERLIPIDEMIA, UNSPECIFIED Status: Chronic Qualifiers: Hyperlipidemia type: unspecified Qualified Code(s): E78.5 - Hyperlipidemia , unspecified (9) Hypertension Code(s): I10 - ESSENTIAL (PRIMARY) HYPERTENSION Status: Chronic Qualifiers: Hypertension type: essential hypertension Qualified Code(s): I10 - Essential (primary) hypertension (10) SLE (systemic lupus erythematosus) Code(s): M32.9 - SYSTEMIC LUPUS ERYTHEMATOSUS, UNSPECIFIED Status: Chronic Qualifiers: Systemic lupus erythematosus type: unspecified - Plan cont current plan of care, plan discussed w/ family, continue antibiotics * change to inpt status * continue cefepime at renal dose * stool for infection work up * CT abdomen stone protocol for abdominal pain * follow urine culture * medication reviewed as below * symptomatic treatment * discussed with family * repeat labs tomorrow * ambulate as tolerated. Review of Systems - Review of Systems Constitutional: weakness, malaise. negative: fever, chills, sweats, other ENT: negative: Ear Pain, Ear Discharge, Nose Pain, Nose Discharge, Nose Congestion, Mouth Pain, Mouth Swelling, Throat Pain, Throat Swelling, Other Respiratory: negative: Cough, Dry, Shortness of Breath, Hemoptysis, SOB with Excertion, Pleuritic Pain, Sputum, Wheezing Cardiovascular: negative: chest pain, palpitations, orthopnea, paroxysmal nocturnal dyspnea, edema, light headedness, other Gastrointestinal: Abdominal Pain, Diarrhea. negative: Nausea, Vomiting, Constipation, Melena, Hematochezia, Other Genitourinary: negative: Dysuria, Frequency, Incontinence, Hematuria, Retention , Other Musculoskeletal: negative: Neck Pain, Shoulder Pain, Arm Pain, Back Pain, Hand Pain, Leg Pain, Foot Pain, Other Skin: negative: Rash, Lesions, Surya, Bruising, Other - Medications/Allergies Allergies/Adverse Reactions: Allergies Allergy/AdvReac Type Severity Reaction Status Date / Time iron Allergy Severe Rash Verified 08/24/17 22:19 Sulfa (Sulfonamide Allergy Severe Rash Verified 08/24/17 22:19 Antibiotics) Medications: Current Medications Acetaminophen (Tylenol) 650 mg PO Q4H PRN PRN Reason: Headache/Fever or Pain Acetaminophen/Aspirin/Caffeine (Excedrin Migraine) 1 tab PO Q8H PRN PRN Reason: Headache, Aches or Pain Hydrocodone Bitart/Acetaminophen ([place] 10/325) 1 tab PO Q4H PRN PRN Reason: Severe Pain (7-10) Hydrocodone Bitart/Acetaminophen ([place] 5/325) 1 tab PO Q4H PRN PRN Reason: Moderate Pain (4-6) Calcitriol (Rocaltrol) 0.25 mcg PO [facility] [place] Cholecalciferol (Vitamin D3) 5,000 units PO DAILY [facility] Hydroxychloroquine Sulfate (Plaquenil) 300 mg PO DAILY [facility] Cefepime HCl 1 gm/Miscellaneous Medication 1 each/ Syringe 10 mls @ 120 mls/hr IVPB Q12HR [facility] Sodium Chloride (Normal Saline 0.9%) 1,000 mls @ 150 mls/hr IV .Q6H40M [facility] Last Admin: 08/25/17 02:21 Dose: 1,000 mls Loperamide HCl (Imodium) 2 mg PO PRN PRN PRN Reason: Diarrhea/Loose Stools Mycophenolate Mofetil (Cellcept) 1,000 mg PO BID [facility] Nystatin (Mycostatin) 2 units SSW DAILY [facility] Ondansetron HCl (Zofran Odt) 4 mg PO Q6H PRN PRN Reason: Nausea/Vomiting Pantoprazole Sodium (Protonix) 40 mg PO DAILY [facility] Prednisone (Prednisone[facility]
[2017-08-25] MEDS: Mycophenolate 250 MG CAP PO SCH ×2 (09:59→20:08)
[2017-08-25] MEDS: Calcitriol 0.25 MCG CAP PO SCH (09:59)
[2017-08-25] MEDS: predniSONE 5 MG TAB PO SCH (09:59)
[2017-08-25] MEDS: Hydroxychloroquine Sulfate 200 MG TAB PO SCH (09:59)
[2017-08-25] MEDS: ADMIXTURE FEE IVPB SCH ×2 (10:19→22:07)
[2017-08-25] MEDS: CEFEPIME IVPB SCH ×2 (10:19→22:07)
[2017-08-25] MEDS: Nystatin 500,000 UNITS/5 ML UDCUP SSW SCH (10:20)
--- NOTE | 2017-08-25 10:46 | CON ---
DATE OF CONSULTATION: 08/25/2017 REASON FOR CONSULTATION: Elevated creatinine. HISTORY OF PRESENT ILLNESS: This is a very pleasant 71-year-old female with a history of CKD and his tory of acute kidney injury, presented to the hospital with a 3-4 day history of nausea and vomiting. Her baseline creatinine was 1.3 and increased to 2.0 today with acidosis and hyperkalemia. The pat ient denies headache, numbness, tingling or weakness. Denies any fever or chills. PAST MEDICAL HISTORY: Rheumatoid arthritis, hypertension, osteoporosis, adrenal insufficiency, benig n renal tumor, awaiting mass post removal, IBS, hysterectomy, splenectomy, left ovarian mass, bilater al cataracts. HOME MEDICATIONS: List reviewed. HOSPITAL MEDICATIONS: List reviewed. ALLERGIES: Reviewed. FAMILY HISTORY: Negative for ESRD. SOCIAL HISTORY: No alcohol or drug use. REVIEW OF SYSTEMS: Fifteen point review of systems was performed and negative except positives noted above. GENERAL: Weakness- HEAD: Headache- NECK: No swelling or lumps. NOSE: No epistaxis or discharge. EYES: No diplopia or pain. 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 NEUROPSYCHIATIC SYSTEMS: No suicidal ideation. No ideation. SKIN: Denies any rash or ulcer. CONSTITUTIONAL: No fever or chills. PHYSICAL EXAMINATION: GENERAL: Patient is awake, alert. VITAL SIGNS: Afebrile, pulse 80, breathing at 16, blood pressure 122/78. OBJECTIVE: See above. Awake, alert, in no acute distress. GENERAL APPEARANCE AND MENTAL STATUS: Fair. HEAD/NECK: Normocephalic. Atraumatic. EYES: EOMI. No deformity. EARS: Clear. No ulcers. NOSE: Intact. No lesions. MOUTH: Clear. No discharge. THROAT: Clear. No exudate. LUNGS: Clear. No crackles. CARDIAC: S1, S2. No rub. ABDOMEN: Benign. BS+. GENITALIA/RECTUM: Villanueva absent. BACK/EXTREMITIES: Edema 0+ Ulcer- NEUROLOGICAL: Alert and motor intact. SKIN: Rash- Bruise- LYMPHATICS: Edema- Ulcer- ASSESSMENT AND RECOMMENDATIONS: 1. Acute kidney injury with chronic kidney disease, most likely decreased effective arterial blood v olume. No acute indication for dialysis. 2. Hypertension, stable. 3. Anemia, stable. 4. Medications based on glomerular filtration rate are appropriate. 5. Hyperkalemia. We will recheck potassium. 6. Metabolic acidosis, consider sodium bicarbonate p.o.
--- NOTE | 2017-08-25 11:05 | CT ---
CT ABDOMEN AND PELVIS WITHOUT CONTRAST STONE PROTOCOL: Date: 08/25/17 HISTORY: Low back pain. Blood in urine. COMPARISON: Ultrasound dated 08/10/17. CT dated 06/08/17. FINDINGS: There is some atelectasis in the lung bases, worse on the left. There is calcified plaque. There appe ars to be a peripheral calcification along the splenic remnant in left upper quadrant of abdomen. Moderate size sliding hiatal hernia. There is atrophy of the left kidney. Urinary bladder is distende d. There is gas within the urinary bladder, as well as gas within the space of Retzius. Moderate diverticular disease sigmoid colon along with loss of normal haustrations. There is strandin g around the ascending colon. Submucosal edema of the entire colon. Moderate vascular plaque of aorta. No aneurysmal dilatation. Pancreas is unremarkable. No right-sided nephrocalcinosis. Mild prominence of the right renal pelvis. Urinary bladder is unremarkable. IMPRESSION: 1. Diffuse colitis, worse in the ascending colon. 2. Gas within the retropubic space of Retzius, may be a sequelae of emphysematous cystitis vs less l ikely bladder rupture. Urologic consultation recommended. 3. Atrophic left kidney with peripheral calcifications along with what appears to be a splenic remna nt. This is unchanged and may be sequelae of prior trauma. 4. No right-sided hydroureteronephrosis or nephroureterolithiasis. 5. Compression fracture T12 is similar with approximately 50% height loss. Kira, patient's nurse, was notified of findings via telephone at 0938 hours on 08/25/17. CODE CR.
[2017-08-25] MEDS ORDERED: Iopamidol 370 76% 50 ML VIAL FS ONE (11:12)
[2017-08-25 11:38] LABS: Anion Gap 16 mmol/L (10-20); BUN (Urea Nitrogen) 34 mg/dL (9.8-20.1); Calc. Creatinine Clearance 26 mL/min (70-130); Calcium 7.6 mg/dL (7.8-10.44); Carbon Dioxide 12 mmol/L (23-31); Chloride 109 mmol/L (98-107); Estimated GFR-MDRD 40; Glucose 116 mg/dL (80-115); Sodium 133 mmol/L (136-145)
--- NOTE | 2017-08-25 13:53 | CT ---
CT PELVIS PERFORMED WITHOUT CONTRAST ENHANCEMENT: HISTORY: Extraperitoneal air noted in the space of Retzius, on previous CT. Concern for bladder rupture. COMPARISON: Earlier exam of the same day. TECHNIQUE: A Villanueva catheter had been introduced and, before Cystografin was introduced, images were obtained thr ough the pelvis. Subsequently, the bladder was distended, and images were obtained, and subsequently , postvoid images were also obtained. FINDINGS: Colitis type changes are again noted in the sigmoid colon and in the visualized portion of the right colon. A Villanueva catheter is in place. There is air within the bladder and, once again, air is demonstrated w ithin the space of Retzius, but there is no extravasation of contrast into this space or into the per itoneum. Post void images also show no signs of extravasation. IMPRESSION: 1. Extraperitoneal air in the region of the space of Retzius. No signs of bladder rupture. No extr avasation of fluid. 2. Colitis changes. POS: TORITO
--- NOTE | 2017-08-25 15:21 | CON ---
DATE OF CONSULTATION: 08/25/2017 INPATIENT CONSULTATION REASON FOR CONSULT: Rule out bladder rupture. HISTORY OF PRESENT ILLNESS: Ms. Burnett is a 71-year-old female who is currently admitted for UTI, acute renal insufficiency, irritable bowel with recent diarrhea, severe dehydration and malnutrition. The patient presented on 08/25/2017, as family brought the patient in due to ongoing weakness and fatigue. CT stone protocol was obtained earlier today, as patient complained of right lower back pain. CT without contrast was read as diffuse colitis, nonspecific gas in the retropubic space of Retzius, possible bladder rupture versus emphysematous cystitis was noted. No evidence of hydronephrosis and atrophic left kidney is noted. The patient does not have an indwelling Villanueva catheter. As I was concerned regarding possible bladder rupture, I emergently saw the patient who appeared to have significant deconditioned status since I saw her in my clinic back in 10/2016. She did complain of new onset incontinence which has been present for approximately 1-2 days with sensation of incomplete void. Her bladder was palpable to the level of the umbilicus and they placed an 18 Turkmen 10 mL Villanueva catheter without any issues and approximately 700 mL of clear yellow urine was obtained. There was immediate decompression of her bladder with no significant hematuria component. I did review the CT myself demonstrating that the bladder outline appeared to have normal morphology with no significant defect. There is nonspecific air in the space of Retzius, which is outside the bladder. Villanueva catheter was placed and I did order a subsequent stat CT cystogram protocol to evaluate for bladder rupture although suspicion low given her clinical findings and image reviewed myself. Urinalysis does demonstrate significant pyuria consistent with bacterial cystitis. She is currently on broad spectrum antibiotic therapy. PAST MEDICAL HISTORY: Lupus, followed by Dr. Arguelles, arthritis, anemia, osteoarthritis, history of left angiomyolipoma followed at [facility] by Dr. Blanco since 09/2013, history of ITP, chronic renal insufficiency followed by Dr. Yates, history of GI infection, Dr. Davis for adrenal insufficiency. PAST SURGICAL HISTORY: Includes splenectomy, hysterectomy total, left renal mass biopsy negative for malignancy, history of angiomyolipoma since 1998, history of left renal arteries selective embolization in [place], [place] in 2009 for angiomyolipoma, repeat left selective arterial embolization at [facility] by Dr. Blanco 11/2013. Cystoscopy, bladder wash performed locally 11/2015, which was grossly unremarkable. ALLERGIES: She is allergic to SULFA. CURRENT MEDICATIONS: Include Tylenol, hydrocodone, Rocaltrol , Plaquenil, Imodium, CellCept, Mycostatin, Zofran, prednisone. PHYSICAL EXAMINATION: VITAL SIGNS: Currently are stable, 97.9, 74, 18, 95, 112/71. I's and O's not documented as she is incontinent. GENERAL: Patient is severely malnourished, cachectic, deconditioned status. HEENT: Grossly unremarkable. HEART: Regular rate. LUNGS: Clear. ABDOMEN: Midline infraumbilical incision consistent with total abdominal hysterectomy, bladder is palpated to the level just inferior to the umbilicus. No rigidity, no rebound. GENITOURINARY: Demonstrates no significant obstructive prolapse, atrophic vaginitis. An 18 Turkmen Villanueva catheter was able to be passed without any issues , with 700 mL of postvoid residual clear yellow dilute urine. EXTREMITIES: No cyanosis, clubbing, edema. NEUROLOGIC: No gross focal deficits. PSYCHIATRIC: Appears to be appropriate and intact. PERTINENT LABORATORY DATA AND IMAGIN. White count 12, hemoglobin 11, platelet 200, 24 bands. Admitting sodium is 129, BUN 47, creatinine is 2.2 yesterday, currently it is 1.3. Her baseline creatinine variable from 1.1-1.7. Urinalysis; yellow, 100 protein, positive nitrites, small leukocytes, 0-3 RBC's, 11-20 WBC's, no epithelial, 4+ bacteria. Cultures are pending. Stool culture is negative thus far. 2. CT without contrast dated 08/25/2017, diffuse colitis, worsening in the ascending colon. Gas within the retropubic space of Retzius, emphysematous cystitis versus bladder rupture. Atrophic left kidney with peripheral calcification. No evidence of right hydronephrosis or renal lithiasis. CT pelvis cystogram demonstrating no evidence of bladder rupture or extravasation of contrast. CT 05/2016, atrophic left kidney with interval decrease in left upper pole angiomyolipoma.. Colonic diverticulosis. Renal ultrasound 08/2016 demonstrating no discrete mass, echogenic right kidney consistent with medical renal disease, no hydronephrosis. Urine cytology negative 08/2016 and 11/26/2016 negative. IMPRESSION AND PLAN: Ms. Burnett is a 71-year-old female with history of lupus , adrenal insufficiency, ITP, history of chronic renal insufficiency, currently admitted for multiple issues: 1. Urinary tract infection, acute renal insufficiency, irritable bowel with diarrhea, colitis. 2. Urinalysis consistent with urinary tract infection. 3. Abnormal CT scan as above, bladder rupture has been ruled out on CT cystogram. 4. Acute urinary retention, new onset. Recommend, continue indwelling Villanueva catheter to continue as she has significant postvoid residual. Bladder rehab will be initiated later when she convalescence, with acute urinary tract infection component improved. She has evidence of emphysematous cystitis, would advise regarding continuing indwelling Villanueva catheter as she has incomplete void. An elective repeat cystoscopy would be warranted. The CT does not demonstrate obvious inflammatory component suggesting colovesical fistula, moreover recent CT cystogram is negative for fistulous tract. Continue medical management. will follow along. Given her deconditioned status, patient will most likely require rehabilitation disposition. Agree with broad-spectrum antibiotics, we will follow sensitivity. KADEN
[2017-08-25] MEDS ORDERED: Acetaminophen 1,000 MG in Premix Bag 1 BAG IVPB SCH (16:15)
--- NOTE | 2017-08-25 18:30 | CON ---
DATE OF CONSULTATION: 08/25/2017 REASON FOR CONSULTATION: Weakness. HISTORY OF PRESENT ILLNESS: Ms. Burnett is a 71-year-old female who comes to the hospital for nausea, vomiting, and weakness. She has been dealing with chronic urinary tract infection and sh e comes in for recurrence of this, also acute kidney injury. She has a history of rheumatoid arthrit is and systemic lupus erythematous. I saw her last time in May of last year for elevated tropon ins in the setting of urinary tract infection and sepsis. She had an echo that was normal. I have n ot seen her in the office since. She denies any chest pain, tightness, pressures. She admits to just feeling sore around her bones. PAST MEDICAL HISTORY: 1. Systemic lupus erythematosus. 2. Rheumatoid arthritis. 3. Hypertension. 4. Osteoarthritis. 5. Adrenal insufficiency secondary to chronic steroid use. 6. Benign left adrenal tumor. 7. Left ovarian mass, status post removal. 8. Irritable bowel syndrome. PAST SURGICAL HISTORY: 1. Hysterectomy. 2. Splenectomy. 3. Left ovarian mass. 4. Bilateral cataract surgery. HOME MEDICATIONS: 1. Imodium. 2. Excedrin. 3. Simethicone. 4. Nystatin. 5. Protonix. 6. CellCept. 7. Prednisone. 8. Plaquenil. 9. Norvasc. 10. Calcitriol. 11. Toprol-XL 100 mg a day. 12. Lasix 20 mg p.r.n., does not take much. ALLERGIES: IRON AND SULFA. FAMILY HISTORY: Noncontributory. SOCIAL HISTORY: No alcohol, tobacco or drugs. REVIEW OF SYSTEMS: A 12 point review of systems was done, is otherwise negative unless stated in the history of present illness. PHYSICAL EXAMINATION: VITAL SIGNS: Temperature 97.9, pulse 74, respiration rate 18, satting 95% on room air, blood pressur e 122/71. GENERAL: Awake, alert, oriented x3, in no distress. HEENT: Normocephalic, atraumatic. NECK: Supple. LUNGS: Clear. CARDIOVASCULAR: S1, S2, no S3, S4, no murmurs. ABDOMEN: Soft, positive bowel sounds. EXTREMITIES: No edema. SKIN: Warm and dry. LABORATORY WORK: Reviewed. CT of the abdomen and pelvis was reviewed. ASSESSMENT AND PLAN: 1. Weakness: Likely related to urinary tract infection. We will make sure this is not related to a ny cardiac issues. We will repeat an echocardiogram that looked fairly normal left ventricular funct ion in May of last year, but she has a lot of calcifications on the valves. We will make sure t here is no major endocarditis that could be at fault for this. Thank you for letting us participate in the care of your patient.
[2017-08-25] MEDS: Acetaminophen 325 MG TAB PO PRN (19:17)
[2017-08-25] MEDS ORDERED: GoLYTELY 4,000 ml Bottle PO SCH (20:30)
--- NOTE | 2017-08-25 21:31 | CON ---
DATE OF CONSULTATION: 08/25/2017 HISTORY OF PRESENT ILLNESS: Mr. Burnett is a 71-year-old woman who has been followed as an outpatie nt previously by Dr. Whitaker. She presented to the hospital last night with severe weakness. She has c hronic diarrhea and takes 1 or 2 Imodium per day and on this has 1 or 2 liquidy bowel movements per d ay. For the last 3-5 days, she has had worsening diarrhea and has had three liquidy bloody stools pe r day. She has had nausea, but does not vomit. She has had no appetite. She eats a small amount an d just feels full. She has just been taking liquids for the last 3 weeks. She was taken some supple ments but these were stopped due to elevated potassium levels. She ordered Nepro from the Internet, but those had not come in yet. She has lost from 101 pounds down to 88 pounds per her report over e last couple of months. She has been on multiple courses of antibiotics for recurrent urinary tract infections. She had a CT scan of the abdomen and pelvis today that showed stranding around the asce nding colon and submucosal edema of the entire colon. She also had some retropubic gas concerning fo r emphysematous cystitis. She had a CT cystogram that was negative for evidence of bladder rupture. She has had no fever. She underwent endoscopy by Dr. Amaya on 05/22/2016 which showed severe grade D reflux esophagitis and diffuse ulcerations in the second portion of the duodenum. She had been on N SAIDs at the time and this was thought to be the source of that. She was tested negative for celiac disease by serology previously. She also underwent upper and lower endoscopy by Dr. Whitaker back in Jun. The colonoscopy was normal. The EGD showed only mild esophagitis at that time. PAST MEDICAL HISTORY: Chronic renal insufficiency, systemic lupus erythematosus and rheumatoid arthr itis on chronic immune suppression with prednisone and CellCept and Plaquenil; hypertension, osteopor osis, history of adrenal insufficiency related to the prednisone. PAST SURGICAL HISTORY: Hysterectomy, splenectomy, left oophorectomy, and cataract surgery. FAMILY HISTORY: Negative for GI malignancies. SOCIAL HISTORY: No alcohol, tobacco or drugs. ALLERGIES: IRON, SULFA. MEDICATIONS: Prior to admission, Excedrin Tension Headache which has acetaminophen and caffeine, but no aspirin; Protonix, CellCept, prednisone, Plaquenil, Norvasc, calcitriol, Toprol, Lasix, and predn isone dose is 25 mg daily. She takes Imodium 1 or 2 tablets daily. REVIEW OF SYSTEMS: Negative x10 systems reviewed except as stated in the history of present illness. She feels very weak. PHYSICAL EXAMINATION: VITAL SIGNS: Temperature 97.9, pulse 74, blood pressure 122/71. GENERAL: She is in no acute distress. She is alert and oriented x3. HEENT: Eyes have no scleral icterus. Oropharynx is clear, without lesions. NECK: No cervical or supraclavicular lymphadenopathy. LUNGS: Clear to auscultation bilaterally. HEART: Regular rate and rhythm. ABDOMEN: Soft. Mild diffuse tenderness without guarding. Bowel sounds are present. EXTREMITIES: No lower extremity edema. LABORATORIES: White blood cell count 12.5, hemoglobin 11.3, platelets 200. INR 1.0. Creatinine 1.3 1 down from 2.24 yesterday or last night. Bilirubin 0.6, AST 24, ALT 10, alkaline phosphatase 122, a lbumin 3.6. She had stool studies that were negative for C. diff, negative for Campylobacter, Shiga toxin positiv e for lactoferrin, positive for occult blood. IMPRESSION: 1. Chronic diarrhea, worsening over the last 3-5 days. She has a history of irritable bowel; sebastian r, CT scan shows submucosal edema and stranding in the right colon. The submucosal edema is diffuse. So far, stool studies are negative for infectious source. Microscopic colitis is possible. We bernard l add ova and parasite to her stool studies. She is chronically immune suppressed with prednisone an d CellCept and Plaquenil. 2. Hematochezia by history. Her hemoglobin is stable at 11.3. 3. Acute on chronic renal insufficiency, improved. 4. Weight loss. She reports losing from 101 pounds to 88 pounds and has no appetite and has only be en taking in liquids over the last few weeks. Her albumin was normal at 3.6 on presentation; however , this was hemoconcentrated and I suspect her albumin is actually significantly lower and she likely does have protein calorie malnutrition. RECOMMENDATIONS: 1. Check stool for ova and parasite. 2. We will plan colonoscopy. Evaluate for pseudomembranous colitis; however, the C. diff is negativ e. Rule out microscopic colitis. Evaluate for ischemic changes or some other chronic inflammatory c hanges. 3. Given the chronic nausea, early satiety with her most recent endoscopy in 2016 showing duodenal u lcers and severe grade D erosive esophagitis. Followup upper endoscopy should be performed at the ti me of colonoscopy. 4. Proton pump inhibitor is scheduled daily with pantoprazole 40 mg. 5. She reports only having been on mostly clear liquids over the last couple of weeks. She should b e able to have decent bowel prep which is couple liters of GoLYTELY.
[2017-08-26] MEDS ORDERED: Metoprolol Tartrate 5 MG/5 ML VIAL IVP SCH (04:15)
[2017-08-26 05:36] LABS: ALT (SGPT) 8 U/L (8-55); AST (SGOT) 25 U/L (5-34); Albumin 2.9 g/dL (3.4-4.8); Alkaline Phosphatase 112 U/L (40-150); Anion Gap 15 mmol/L (10-20); BUN (Urea Nitrogen) 23 mg/dL (9.8-20.1); Bilirubin, Total 0.5 mg/dL (0.2-1.2); Calc. Creatinine Clearance 29 mL/min (70-130); Calcium 7.9 mg/dL (7.8-10.44); Carbon Dioxide 14 mmol/L (23-31); Chloride 104 mmol/L (98-107); Estimated GFR-MDRD 45; Globulin 2.2 g/dL (2.4-3.5); Glucose 62 mg/dL (80-115); Protein, Total 5.1 g/dL (6.0-8.3); Sodium 129 mmol/L (136-145)
--- NOTE | 2017-08-26 08:17 | PRG ---
DATE OF EXAMINATION: 08/26/2017 SUBJECTIVE: The patient has been moved to telemetry due to tachycardia and chest pain. Cardiology consultation in progress. OBJECTIVE: VITAL SIGNS: Stable at temperature 98.2. Her heart rate is variable from 104- 122, respiratory rate 18, oxygen saturation 97%, blood pressure 152/71. I's and O's 2900 in, 1450 of urine out, clear, she is positive 1.4 liters. ABDOMEN: Soft, nontender, nondistended. No suprapubic distention is appreciated. PERTINENT LABORATORY DATA: No new CBC. Today's BMP, sodium is 129, BUN 23, creatinine 1.1. Admitting creatinine is 2.2. CT cystogram negative for bladder perforation, extravasation urine culture. Klebsiella resistant to cephalosporin, sensitive to quinolones. Patient has been changed from cefepime to Levaquin, which is appropriate. IMPRESSION AND PLAN: 1. Ms. Burnett is a 71-year-old female with history of left angiomyolipoma, status post multiple embolization with involuted left kidney. 2. History of urinary tract infection, current admission with Klebsiella urinary tract infection, emphysematous cystitis. 3. CT demonstrating no evidence of bladder perforation. Continue IV Levaquin. 4. Acute urinary retention with PVR 700 mL. Continue indwelling Villanueva catheter. 5. Deconditioned status, dehydration, profuse diarrhea. Gastroenterology and Cardiology consultation in progress. Villanueva catheter is to remain in situ per Genitourinary recommendations. She will require prolonged antibiotic therapy due to complicated urinary tract infection. Pending clinical course, consideration for Infectious Disease consultation if indicated. Based on sensitivity, she will require prolonged antibiotic therapy as an outpatient. Voiding trial per when appropriate. As she will most likely have colonoscopy , anesthesia event, do not remove Villanueva catheter unless it is okay per Genitourinary. We will follow along with you on this admission. KADEN
[2017-08-26] MEDS: predniSONE 5 MG TAB PO SCH (08:50)
[2017-08-26] MEDS: Hydroxychloroquine Sulfate 200 MG TAB PO SCH (08:51)
[2017-08-26] MEDS: Mycophenolate 250 MG CAP PO SCH ×2 (08:52→20:25)
[2017-08-26] MEDS: Nystatin 500,000 UNITS/5 ML UDCUP SSW SCH (08:52)
--- NOTE | 2017-08-26 11:01 | PDOC.PN ---
- Subjective Encounter Start Date: 08/26/17 Encounter Start Time: 07:40 -: old records requested/rev she was transferred for tachycardia, today no fever, less abdominal pain, waiting for procedure - Objective MAR Reviewed: Yes Vital Signs & Weight: Vital Signs (12 hours) Temp Pulse Resp BP Pulse Ox 08/26/17 08:31 98.7 F 110 H 16 154/72 H 96 08/26/17 04:30 98.2 F 122 H 18 97 08/26/17 04:25 98.2 F 122 H 16 152/71 H 97 Weight Admit Weight 90 lb Weight 90 lb 14.4 oz I&O: 08/25/17 08/26/17 08/27/17 06:59 06:59 06:59 Intake Total 2900 Output Total 1450 Balance 1450 Result Diagrams: 08/24/17 17:38 08/26/17 05:02 EKG Reviewed by me: Yes Phys Exam - Physical Examination Constitutional: NAD HEENT: PERRLA, moist MMs, sclera anicteric Neck: no JVD, supple Respiratory: no wheezing, no rales, no rhonchi Cardiovascular: RRR, no significant murmur, no rub Gastrointestinal: soft, non-tender, no distention, positive bowel sounds Musculoskeletal: no edema, pulses present Neurological: non-focal, normal sensation Lymphatic: no nodes Psychiatric: normal affect Skin: no rash, normal turgor Dx/Plan (1) Acute worsening of stage 3 chronic kidney disease Code(s): N18.3 - CHRONIC KIDNEY DISEASE, STAGE 3 (MODERATE) Status: Acute (2) Gastroenteritis Code(s): K52.9 - NONINFECTIVE GASTROENTERITIS AND COLITIS, UNSPECIFIED Status : Acute (3) Hyponatremia Code(s): E87.1 - HYPO-OSMOLALITY AND HYPONATREMIA Status: Acute (4) Sepsis Code(s): A41.9 - SEPSIS, UNSPECIFIED ORGANISM Status: Acute (5) UTI (urinary tract infection) Status: Acute (6) Chronic anemia Code(s): D64.9 - ANEMIA, UNSPECIFIED Status: Chronic (7) GERD (gastroesophageal reflux disease) Code(s): K21.9 - GASTRO-ESOPHAGEAL REFLUX DISEASE WITHOUT ESOPHAGITIS Status: Chronic Qualifiers: Esophagitis presence: esophagitis presence not specified Qualified Code(s) : K21.9 - Gastro-esophageal reflux disease without esophagitis (8) Hyperlipidemia Code(s): E78.5 - HYPERLIPIDEMIA, UNSPECIFIED Status: Chronic Qualifiers: Hyperlipidemia type: unspecified Qualified Code(s): E78.5 - Hyperlipidemia , unspecified (9) Hypertension Code(s): I10 - ESSENTIAL (PRIMARY) HYPERTENSION Status: Chronic Qualifiers: Hypertension type: essential hypertension Qualified Code(s): I10 - Essential (primary) hypertension (10) SLE (systemic lupus erythematosus) Code(s): M32.9 - SYSTEMIC LUPUS ERYTHEMATOSUS, UNSPECIFIED Status: Chronic Qualifiers: Systemic lupus erythematosus type: unspecified (11) Acute urinary retention Code(s): R33.8 - OTHER RETENTION OF URINE Status: Acute (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 Review of Systems - Review of Systems Constitutional: weakness. negative: fever, chills, sweats, malaise, other ENT: negative: Ear Pain, Ear Discharge, Nose Pain, Nose Discharge, Nose Congestion, Mouth Pain, Mouth Swelling, Throat Pain, Throat Swelling, Other Respiratory: negative: Cough, Dry, Shortness of Breath, Hemoptysis, SOB with Excertion, Pleuritic Pain, Sputum, Wheezing Cardiovascular: negative: chest pain, palpitations, orthopnea, paroxysmal nocturnal dyspnea, edema, light headedness, other Gastrointestinal: negative: Nausea, Vomiting, Abdominal Pain, Diarrhea, Constipation, Melena, Hematochezia, Other Genitourinary: negative: Dysuria, Frequency, Incontinence, Hematuria, Retention , Other Musculoskeletal: negative: Neck Pain, Shoulder Pain, Arm Pain, Back Pain, Hand Pain, Leg Pain, Foot Pain, Other - Medications/Allergies Allergies/Adverse Reactions: Allergies Allergy/AdvReac Type Severity Reaction Status Date / Time iron Allergy Severe Rash Verified 08/24/17 22:19 Sulfa (Sulfonamide Allergy Severe Rash Verified 08/24/17 22:19 Antibiotics) Medications: Current Medications Acetaminophen (Tylenol) 650 mg PO Q4H PRN PRN Reason: Headache/Fever or Pain Last Admin: 08/25/17 19:17 Dose: 650 mg Acetaminophen/Aspirin/Caffeine (Excedrin Migraine) 1 tab PO Q8H PRN PRN Reason: Headache, Aches or Pain Hydrocodone Bitart/Acetaminophen ([place] 10/325) 1 tab PO Q4H PRN PRN Reason: Severe Pain (7-10) Hydrocodone Bitart/Acetaminophen ([place] 5/325) 1 tab PO Q4H PRN PRN Reason: Moderate Pain (4-6) Calcitriol (Rocaltrol) 0.25 mcg PO MWF [facility] Last Admin: 08/25/17 09:59 Dose: Not Given Cholecalciferol (Vitamin D3) 5,000 units PO DAILY [facility] Last Admin: 08/26/17 08:51 Dose: Not Given Hydroxychloroquine Sulfate (Plaquenil) 300 mg PO DAILY [facility] Last Admin: 08/26/17 08:51 Dose: Not Given Sodium Chloride (Normal Saline 0.9%) 1,000 mls @ 150 mls/hr IV .Q6H40M [facility] Last Admin: 08/25/17 22:07 Dose: 1,000 mls Levofloxacin 500 mg/ Device 100 mls @ 100 mls/hr IVPB Q24HR [facility] Last Admin: 08/26/17 08:48 Dose: 100 mls Loperamide HCl (Imodium) 2 mg PO PRN PRN PRN Reason: Diarrhea/Loose Stools Metoprolol Succinate (Toprol Xl) 100 mg PO DAILY [facility] Last Admin: 08/26/17 08:51 Dose: Not Given Mycophenolate Mofetil (Cellcept) 1,000 mg PO BID [facility] Last Admin: 08/26/17 08:52 Dose: Not Given Nystatin (Mycostatin) 2 units SSW DAILY [facility] Last Admin: 08/26/17 08:52 Dose: Not Given Ondansetron HCl (Zofran Odt) 4 mg PO Q6H PRN PRN Reason: Nausea/Vomiting Pantoprazole Sodium (Protonix) 40 mg PO DAILY [facility] Last Admin: 08/26/17 08:52 Dose: Not Given Prednisone (Prednisone) 25 mg PO QAM-WM [facility] Last Admin: 08/26/17 08:50 Dose: Not Given Sodium Chloride (Flush - Normal Saline) 10 ml IVF Q12HR [facility] Last Admin: 08/26/17 08:48 Dose: Not Given Sodium Chloride (Flush - Normal Saline) 10 ml IVF PRN PRN PRN Reason: Saline Flush
[2017-08-26] MEDS ORDERED: Ketamine 50 MG/ML VIAL ONE (12:07)
[2017-08-26] MEDS: Sodium Chloride 0.9% 1,000 ML IV SCH ×2 (13:49→16:38)
--- NOTE | 2017-08-26 13:49 | OP ---
DATE OF PROCEDURE: 08/26/2017 SURGEON: David Johnston M.D. PREOPERATIVE DIAGNOSES: 1. Refractory diarrhea. 2. Thickened colon, right side. 3. Immunosuppression with lupus medications. 4. Epigastric pain and poor p.o. intake. POSTOPERATIVE DIAGNOSES: 1. Distal esophageal ulcer, atypical appearance, biopsied from margins and base with a request for e valuation for CMV, HSV. 2. Normal stomach in forward and retroflexed views. 3. Normal duodenum to the third portion. Random small bowel biopsies taken with regard to the patie nt's diarrhea. 4. Colonoscopy notable for scattered ulcers in the rectum, sigmoid, ascending, transverse colons. T erminal ileum was normal. These ulcers could be ischemic, but only in one area did they seem to be a ntimesenteric and linear, many areas they were focal with normal surrounding mucosa. Biopsies were t aken from the bases and the edges and again was asked for pathology to rule out opportunistic infecti ons. ANESTHESIA: TIVA. RECOMMENDATIONS: ID consult. The patient has had positive CMV titers in the past. Would repeat CMV , DNA. Will also check AFB. Would also check histoplasmosis and amoeba. PROCEDURE IN DETAIL: After the patient was informed of the risks, benefits, possible complications o f endoscopy including perforation, bleeding, reactions to medication and aspiration, informed consent was obtained. The patient brought to endoscopy suite where she was sedated in gradual fashion. Onc e she was comfortable, a bite block was placed in incisural orifice. This scope was advanced through the esophagus, stomach and second and third portion of duodenum. The esophagus was notable for an u lcer irregular 1 cm x 2 cm in the GE junction. Biopsy taken from the base and the margins. The stom ach was entered and found to be normal in forward and retroflexed views. The duodenum was normal to the third and fourth portion. Biopsies of the small bowel were taken, although appeared normal. The scope was removed. The patient was turned in the room. A rectal examination was performed which was normal except for some recent prolapse of hemorrhoids which were repositioned in the rectum. Multiple biopsies taken f rom the sigmoid, descending, transverse and ascending colon where ulcers were noted. These were take n from at the bases and the margins. The surrounding mucosa was normal. These ulcers ranged in size from this 0.5 cm to 1.5 cm to 2 cm. Only in one area did they appear linear on the antimesenteric b order and that was probably in the descending colon or splenic flexure area, but other areas they ana eared to be sporadic and alone. They were not serpiginous, were mostly round. Again, with her histo ry of long immunosuppression these could be opportunistic, multiple biopsies were obtained. In the sigmoid, there some mild erythema and biopsies were taken away from the area of ulcerations an d submitted to Pathology. The scope was removed. The patient tolerated the procedure well with no c omplications.
[2017-08-26] MEDS ORDERED: Dexamethasone 20 MG/5 ML VIAL ONE (14:17)
[2017-08-26] MEDS ORDERED: PROPOFOL 200 MG/20 ML VIAL ONE (14:17)
[2017-08-26] MEDS ORDERED: Ganciclovir Sodium 500 MG/10 ML VIAL IVPB SCH (16:45)
[2017-08-26] MEDS ORDERED: SODIUM CHLORIDE 0.9% IVPB SCH (18:00)
[2017-08-26] MEDS ORDERED: GANCICLOVIR SODIUM IVPB SCH (18:00)
[2017-08-26] MEDS: GANCICLOVIR SODIUM IVPB SCH (18:46)
[2017-08-26] MEDS: SODIUM CHLORIDE 0.9% IVPB SCH (18:46)
--- NOTE | 2017-08-26 19:57 | PRG ---
DATE OF SERVICE: 08/26/2017 SUBJECTIVE: This 71-year-old female being seen for acute kidney injury. The patient denies any nausea, vomiting or chest pain. PHYSICAL EXAMINATION: GENERAL: The patient is awake and alert. VITAL SIGNS: Afebrile, pulse 70 rr 15, blood pressure 121/57. HEAD/NECK: Normocephalic. Atraumatic. EYES: EOMI. No deformity. EARS: Clear. No ulcers. NOSE: Intact. No lesions. MOUTH: Clear. No discharge. THROAT: Clear. No exudate. LUNGS: Clear. No crackles. CARDIAC: S1, S2. No rub. ABDOMEN: Benign. BS+. GENITALIA/RECTUM: Villanueva absent. BACK/EXTREMITIES: Edema 0+ Ulcer- NEUROLOGICAL: Alert and motor intact. SKIN: Rash- Bruise- LYMPHATICS: Edema- Ulcer- LABORATORY DATA: Show hemoglobin 9.3, bicarbonate 14 ASSESSMENT AND RECOMMENDATIONS: 1. Acute kidney injury, stage 2. 2. Hypertension, stable. 3. Anemia, stable. 4. Metabolic acidosis recommend sodium bicarbonate. MTDD
--- NOTE | 2017-08-27 00:42 | CON ---
DATE OF CONSULTATION: 08/26/2017 REASON FOR CONSULTATION: Possible CMV disease in the setting of immunosuppression. HISTORY OF PRESENT ILLNESS: A 71-year-old whom I had seen in the past who has a history of systemic lupus erythematosus for the past 14 years with an index manifestation of nephritis treated with Cytox an, prednisone with good response, having avoided hemodialysis since. She is currently on CellCept, mycophenolate and prednisone. I saw her for urinary tract infection with invasive features in [facility] just a few months ago. She completed treatment through a PICC line and at that time, the organism was E. coli. We had assessed her for opportunistic infections with Cryptococcus antigen and she als o had a positive CMV DNA PCR for quantitative 8820. Patient then came for followup in the clinic and I believe that probably this result was overlooked and now she presents with nausea, vomiting, and w eakness and odynophagia, epigastric pain, and unremitting diarrhea. The evaluation thus far has incl uded urine culture with Klebsiella pneumo, which was resistant to ceftriaxone and ceftazidime, and re sistant to cefepime and stool lactoferrin which showed elevated lactoferrin. C. difficile antigen an d toxin both negative and Campylobacter and Shiga toxin test which were negative and a stool culture with normal enteric luisa. No E. coli isolated. Currently, she is still feeling unwell with u nremitting diarrhea. The patient has no headaches, no visual symptoms, sore throat, odynophagia, dys phagia, no dyspnea or chest pain. Some abdominal tenderness particularly in the flank areas. No ursula nt symptoms. No skin disorder except for bruising. PAST MEDICAL HISTORY: Systemic lupus erythematosus with nephritis, chronic renal insufficiency stage 3 at least recurrent UTIs, some with invasive features, ovarian mass, history of intestinal ulcerations, CMV, viremia recently identified, but not treated. ALLERGIES: SULFA DRUGS. PAST SURGICAL HISTORY: Hysterectomy, splenectomy, ovarian mass removal. SOCIAL HISTORY: Never a smoker, lives in [place]. FAMILY HISTORY: Noncontributory. CURRENT MEDICATIONS: Tylenol, caffeine, [place], Rocaltrol, Plaquenil, levofloxacin, Toprol, CellCept, Zofran, Protonix, prednisone. PHYSICAL EXAMINATION: VITAL SIGNS: T-max 98.7, blood pressure 120/50, pulse 112, respirations 14, O2 sat 92-96%. GENERAL: Appears in no distress. SKIN: This appears chronically ill. No lymphadenopathy. HEENT: Ocular movements are conjugate. Some periorbital edema. Oral cavity with no abnormalities n oted. NECK: Supple, no jugular venous distention. LUNGS: With symmetric clear breath sounds. HEART: S1, S2, regular rate. ABDOMEN: With mild tenderness in the lateral abdominal areas, right and left side, more intense on t he right. No distention or ascites, no organomegaly. No bladder distention. EXTREMITIES: No joint inflammatory activity. She has areas with bruising in the skin of upper extre mities. Pulses are 1+ in dorsalis pedis. Plantar responses were flexor. No clonus. NEUROLOGIC: Cognitive function appears to be intact. Strength in upper and lower extremities appear s to be preserved. LABORATORY DATA: WBC 12.5, hemoglobin 11.3, platelets 200, 72% neutrophils, 24% bands. Sodium 129, creatinine 1.19, which is down from admission when it was 2.24. Liver profile normal. Albumin 2.9. Lipase 256. Urinalysis with 11-20 wbc's. ASSESSMENT: 1. Systemic lupus erythematosus with immunosuppression associated with treatment. 2. 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 It looks like it was overloo ked. The patient never followed up in the clinic. 3. Previous episodes of invasive urinary tract infection. 4. Multiple ulcers in the colon as well as the esophageal gastric junction. 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 The urinary tract findings are probably related to colonization rather than invasive infection at this p oint. I think we can discontinue antimicrobial therapy. We will start ganciclovir IV 2.5 mg/kg once daily and then transition to oral Valcyte once there is improvement and the repeat studies with CMV DNA, PCR, and the gastrointestinal biopsy studies are pending. Of course, we will have to adjust the rapy according to results of those.
[2017-08-27] MEDS: Sodium Chloride 0.9% 1,000 ML IV SCH ×2 (00:56→23:32)
[2017-08-27 06:20] LABS: ALT (SGPT) Less than 7 U/L (8-55); AST (SGOT) 22 U/L (5-34); Albumin 2.3 g/dL (3.4-4.8); Alkaline Phosphatase 81 U/L (40-150); Anion Gap 18 mmol/L (10-20); BUN (Urea Nitrogen) 18 mg/dL (9.8-20.1); Bilirubin, Total 0.4 mg/dL (0.2-1.2); Calc. Creatinine Clearance 39 mL/min (70-130); Calcium 7.2 mg/dL (7.8-10.44); Chloride 107 mmol/L (98-107); Estimated GFR-MDRD 62; Globulin 1.9 g/dL (2.4-3.5); Potassium 4.1 mmol/L (3.5-5.1); Protein, Total 4.2 g/dL (6.0-8.3); Sodium 130 mmol/L (136-145)
[2017-08-27 06:21] LABS: Band 17 % (5-11); Lymphocytes 5 % (21-51); MDiff Complete? YES; Mean Corpuscular Hemoglobin 29.4 pg (27.0-31.0); Mean Platelet Volume 10.4 fL (7.4-10.4); Monocytes 4 % (0-10); Neutrophil 74 % (42-75); PLT Morphology Comment Appears Adequate; Platelet Count 152 thou/uL (130-400); Red Blood Cell (RBC) Count 3.05 mill/uL (4.20-5.40); White Blood Cell (WBC) Count 7.8 thou/uL (4.8-10.8)
[2017-08-27 06:26] LABS: Carbon Dioxide 9 mmol/L (23-31); Glucose 55 mg/dL (80-115)
[2017-08-27] MEDS: Ondansetron ODT 4 MG TAB PO PRN (07:12)
--- NOTE | 2017-08-27 07:48 | PRG ---
DATE OF SERVICE: 08/27/2017 SUBJECTIVE: The patient is resting comfortably, relate she feels fatigue/weak. Daughter at bedside. OBJECTIVE: VITAL SIGNS: Stable. She is afebrile. Urine output 900 mL of clear dilute urine. ABDOMEN: Soft, nontender, nondistended. No suprapubic tenderness appreciated. PERTINENT LABORATORY DATA: White count 7, hemoglobin 9.0, platelets 152, 17 bandemia, creatinine 0.9, prior hemoglobin is 11.3, albumin 1.9. Urine culture demonstrating Klebsiella resistant to cephalosporins, sensitive to quinolones. The patient currently on Levaquin. IMPRESSION AND PLAN: Ms. 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 1. History of recurrent urinary tract infection. 2. CT demonstrating emphysematous pyelonephritis, with acute urinary retention of 700-800 mL. Indwelling Villanueva catheter was placed by me on initial consultation with a CT cystogram ruled out for bladder rupture. As patient presents with acute urinary retention, Klebsiella emphysematous pyelonephritis, recommend the patient continue her quinolones for minimum 2 weeks due to complicated urinary tract infection. 3. Severely deconditioned status Given her deconditioned status, patient is not a candidate to be discharged home as she lives by herself in a private residence. Recommend case management consult for rehab intermediate facility to regain her strength back. 4. Infectious Disease consult noted history of CMV untreated, recently started on ganciclovir. appreciate Infectious Disease consult, her urine culture is not colonized, as she has no prior history of Villanueva catheter. As it is acute emphysematous cystitis, I do recommend antibiotic regimen. Recommend bladder rest due to significant retention /deconditioned status with indwelling Villanueva catheter. The patient should follow up with me in 2-week interval, for a voiding trial. As I will be out a conference for a few days, typing section chief urology coverage if acute issues. KADEN
[2017-08-27] MEDS ORDERED: Dextrose 5 %-0.45 % NaCl 1,000 ML IV SCH (08:15)
[2017-08-27] MEDS ORDERED: SODIUM BICARBONATE IV SCH (08:30)
[2017-08-27] MEDS ORDERED: ADMIXTURE FEE IV SCH (08:30)
[2017-08-27] MEDS ORDERED: NACL IV SCH (08:30)
[2017-08-27] MEDS ORDERED: DEXTROSE IV SCH (08:30)
[2017-08-27 09:23] LABS: Lactic Acid 0.6 mmol/L (0.5-2.2)
[2017-08-27] MEDS: Mycophenolate 250 MG CAP PO SCH ×2 (09:23→21:02)
[2017-08-27] MEDS: Hydroxychloroquine Sulfate 200 MG TAB PO SCH (09:25)
[2017-08-27] MEDS: predniSONE 5 MG TAB PO SCH (09:25)
[2017-08-27] MEDS: Calcitriol 0.25 MCG CAP PO SCH (09:28)
[2017-08-27] MEDS: Nystatin 500,000 UNITS/5 ML UDCUP SSW SCH (09:29)
[2017-08-27 10:15] LABS: Actual Bicarbonate (HCO3a) 10.1 mEq/L (22-26); Base Excess (BEa) -13.1 mEq/L (0 (+/-) 2.5); CO2 Tension 17.1 mmHg (35.0-45.0); Hematocrit-ABG 29.3 % (36.0-47.0); Hemoglobin (Hb) 8.4 g/dL (12.0-16.0); O2 Tension (PaO2) 69.1 mmHg (80.0-100.0); pH, Arterial 7.39 (7.35-7.45)
[2017-08-27 10:16] LABS: Calcium, Ionized 1.2 mmol/L (1.12-1.30); Puncture Site RRA
[2017-08-27 10:17] LABS: ALV-art Gradient 59.255 (0-20)
--- NOTE | 2017-08-27 10:24 | PRG ---
DATE OF SERVICE: 08/27/2017 SUBJECTIVE: This is a 71-year-old female being seen for acute kidney injury. The patient denies any nausea, vomiting, or chest pain. PHYSICAL EXAMINATION: GENERAL: Patient is awake, alert. VITAL SIGNS: Afebrile, pulse 89, breathing at 16, blood pressure 125/60. OBJECTIVE: See above. Awake, alert, in no acute distress. GENERAL APPEARANCE AND MENTAL STATUS: Fair. HEAD/NECK: Normocephalic. Atraumatic. EYES: EOMI. No deformity. EARS: Clear. No ulcers. NOSE: Intact. No lesions. MOUTH: Clear. No discharge. THROAT: Clear. No exudate. LUNGS: Clear. No crackles. CARDIAC: S1, S2. No rub. ABDOMEN: Benign. BS+. GENITALIA/RECTUM: Villanueva absent. BACK/EXTREMITIES: Edema 0+ Ulcer- NEUROLOGICAL: Alert and motor intact. SKIN: Rash- Bruise- LYMPHATICS: Edema- Ulcer- LABORATORY: Hemoglobin 9, creatinine 0.9, bicarbonate is 9, creatinine 0.9. ASSESSMENT AND RECOMMENDATIONS: 1. Acute kidney injury, stable. 2. Hypertension, stable. 3. Anemia, stable. 4. Metabolic acidosis because of diarrhea. I would recommend changing the IV fluid to a bicarbonate drip. It could be dilutional as well. Other gastrointestinal causes of metabolic acidosis should b e considered.
--- NOTE | 2017-08-27 10:31 | PDOC.PN ---
- Subjective Encounter Start Date: 08/27/17 Encounter Start Time: 07:40 pt has very poor po intake, has diarrhoea, no abdominal pain, no fever, no dyspnea - Objective MAR Reviewed: Yes Vital Signs & Weight: Vital Signs (12 hours) Temp Pulse Resp BP Pulse Ox 08/27/17 07:31 97.6 F 108 H 16 125/60 100 08/27/17 04:00 98.0 F 111 H 20 136/71 95 08/27/17 00:00 98.3 F 103 H 20 127/60 99 Weight Admit Weight 90 lb Weight 92 lb I&O: 08/26/17 08/27/17 08/28/17 06:59 06:59 06:59 Intake Total 2900 3177 Output Total 1450 900 Balance 1450 2277 Result Diagrams: 08/27/17 05:00 08/27/17 05:00 EKG Reviewed by me: Yes (sinus tachycardia) Phys Exam - Physical Examination Constitutional: NAD HEENT: PERRLA, moist MMs, sclera anicteric puffy eyelid Neck: no JVD, supple Respiratory: no wheezing, no rales, no rhonchi Cardiovascular: RRR, no significant murmur, no rub tachycardia Gastrointestinal: soft, non-tender, no distention, positive bowel sounds Musculoskeletal: no edema, pulses present Neurological: non-focal, normal sensation Lymphatic: no nodes Psychiatric: normal affect, A&O x 3 Skin: no rash, normal turgor Dx/Plan (1) Acute urinary retention Code(s): R33.8 - OTHER RETENTION OF URINE Status: Acute (2) Emphysematous cystitis Code(s): N30.80 - OTHER CYSTITIS WITHOUT HEMATURIA Status: Acute (3) Normal anion gap metabolic acidosis Code(s): E87.2 - ACIDOSIS Status: Acute (4) Acute worsening of stage 3 chronic kidney disease Code(s): N18.3 - CHRONIC KIDNEY DISEASE, STAGE 3 (MODERATE) Status: Acute (5) Gastroenteritis Code(s): K52.9 - NONINFECTIVE GASTROENTERITIS AND COLITIS, UNSPECIFIED Status : Acute Comment: colitis suspecting from CMV colitis (6) Hyponatremia Code(s): E87.1 - HYPO-OSMOLALITY AND HYPONATREMIA Status: Acute (7) Sepsis Code(s): A41.9 - SEPSIS, UNSPECIFIED ORGANISM Status: Acute (8) UTI (urinary tract infection) Status: Acute Comment: due to klebsiela (9) Chronic anemia Code(s): D64.9 - ANEMIA, UNSPECIFIED Status: Chronic (10) GERD (gastroesophageal reflux disease) Code(s): K21.9 - GASTRO-ESOPHAGEAL REFLUX DISEASE WITHOUT ESOPHAGITIS Status: Chronic Qualifiers: Esophagitis presence: esophagitis presence not specified Qualified Code(s) : K21.9 - Gastro-esophageal reflux disease without esophagitis (11) Hyperlipidemia Code(s): E78.5 - HYPERLIPIDEMIA, UNSPECIFIED Status: Chronic Qualifiers: Hyperlipidemia type: unspecified Qualified Code(s): E78.5 - Hyperlipidemia , unspecified (12) Hypertension Code(s): I10 - ESSENTIAL (PRIMARY) HYPERTENSION Status: Chronic Qualifiers: Hypertension type: essential hypertension Qualified Code(s): I10 - Essential (primary) hypertension (13) SLE (systemic lupus erythematosus) Code(s): M32.9 - SYSTEMIC LUPUS ERYTHEMATOSUS, UNSPECIFIED Status: Chronic Qualifiers: Systemic lupus erythematosus type: unspecified - Plan cont current plan of care, plan discussed w/ family, continue antibiotics * will change IVF to Dex with 1/2 NS and 2 ampoulse of sodium bicarbonate at 100 ml per hour * monitor labs * continue empiric gencyclovir * follow up on colon pathology and cmv-dna test * continue levaquin * continue kerr * medication reviewed as below * symptomatic treatment * will need rehab on discharge. Review of Systems - Review of Systems Constitutional: weakness, malaise. negative: fever, chills, sweats, other ENT: negative: Ear Pain, Ear Discharge, Nose Pain, Nose Discharge, Nose Congestion, Mouth Pain, Mouth Swelling, Throat Pain, Throat Swelling, Other Respiratory: negative: Cough, Dry, Shortness of Breath, Hemoptysis, SOB with Excertion, Pleuritic Pain, Sputum, Wheezing Cardiovascular: negative: chest pain, palpitations, orthopnea, paroxysmal nocturnal dyspnea, edema, light headedness, other Gastrointestinal: Diarrhea. negative: Nausea, Vomiting, Abdominal Pain, Constipation, Melena, Hematochezia, Other Genitourinary: negative: Dysuria, Frequency, Incontinence, Hematuria, Retention , Other Musculoskeletal: negative: Neck Pain, Shoulder Pain, Arm Pain, Back Pain, Hand Pain, Leg Pain, Foot Pain, Other Skin: negative: Rash, Lesions, Surya, Bruising, Other - Medications/Allergies Allergies/Adverse Reactions: Allergies Allergy/AdvReac Type Severity Reaction Status Date / Time iron Allergy Severe Rash Verified 08/24/17 22:19 Sulfa (Sulfonamide Allergy Severe Rash Verified 08/24/17 22:19 Antibiotics) Medications: Current Medications Acetaminophen (Tylenol) 650 mg PO Q4H PRN PRN Reason: Headache/Fever or Pain Last Admin: 08/25/17 19:17 Dose: 650 mg Hydrocodone Bitart/Acetaminophen ([place] 5/325) 1 tab PO Q4H PRN PRN Reason: Moderate Pain (4-6) Calcitriol (Rocaltrol) 0.25 mcg PO MWF [facility] Last Admin: 08/27/17 09:28 Dose: 0.25 mcg Cholecalciferol (Vitamin D3) 5,000 units PO DAILY [facility] Last Admin: 08/27/17 09:28 Dose: 5,000 units Hydroxychloroquine Sulfate (Plaquenil) 300 mg PO DAILY [facility] Last Admin: 08/27/17 09:25 Dose: 300 mg Levofloxacin 500 mg/ Device 100 mls @ 100 mls/hr IVPB Q24HR [facility] Last Admin: 08/27/17 09:37 Dose: 100 mls Ganciclovir Sodium 120 mg/ (Sodium Chloride) 252.4 mls @ 252.4 mls/hr IVPB 1800 [facility] Last Admin: 08/26/17 18:46 Dose: 252.4 mls Sodium Bicarbonate 150 meq/Miscellaneous Medication 1 each/ Dextrose/Water 1, 150 mls @ 100 mls/hr IV .[id number] [facility] Loperamide HCl (Imodium) 2 mg PO PRN PRN PRN Reason: Diarrhea/Loose Stools Metoprolol Succinate (Toprol Xl) 100 mg PO DAILY [facility] Last Admin: 08/27/17 09:28 Dose: 100 mg Mycophenolate Mofetil (Cellcept) 1,000 mg PO BID [facility] Last Admin: 08/27/17 09:23 Dose: 1,000 mg Nystatin (Mycostatin) 2 units SSW DAILY [facility] Last Admin: 08/27/17 09:29 Dose: Not Given Ondansetron HCl (Zofran Odt) 4 mg PO Q6H PRN PRN Reason: Nausea/Vomiting Last Admin: 08/27/17 07:12 Dose: 4 mg Pantoprazole Sodium (Protonix) 40 mg PO DAILY [facility] Last Admin: 08/27/17 09:28 Dose: 40 mg Prednisone (Prednisone) 25 mg PO QA-[facility] Last Admin: 08/27/17 09:25 Dose: 25 mg Sodium Chloride (Flush - Normal Saline) 10 ml IVF Q12HR [facility] Last Admin: 08/27/17 09:28 Dose: Not Given Sodium Chloride (Flush - Normal Saline) 10 ml IVF PRN PRN PRN Reason: Saline Flush
[2017-08-27] MEDS: Sodium Bicarbonate 150 MEQ, Admixture Fee 1 EACH in Dextrose 5% in Water 1,000 ML IV SCH (10:59)
[2017-08-27 15:27] LABS: Anion Gap 17 mmol/L (10-20); BUN (Urea Nitrogen) 18 mg/dL (9.8-20.1); Calc. Creatinine Clearance 37 mL/min (70-130); Calcium 7.6 mg/dL (7.8-10.44); Carbon Dioxide 14 mmol/L (23-31); Chloride 106 mmol/L (98-107); Estimated GFR-MDRD 59; Glucose 96 mg/dL (80-115); Sodium 133 mmol/L (136-145)
--- NOTE | 2017-08-27 15:50 | PRG ---
DATE OF SERVICE: 08/27/2017 SUBJECTIVE: Ms. Burnett is continuing to feel weak today. No shortness of breath. She is tolerati ng her clear liquid diet, though she says any oral intake will cause her abdominal pain to act up aga in. Diarrhea seems to have slowed down. She was started on IV ganciclovir yesterday. Esophageal an d colon biopsies are still pending. OBJECTIVE: VITAL SIGNS: Temperature 99.1, pulse 97, blood pressure 140/63, 97% oxygen saturation on room air. GENERAL: Frail, lying in bed comfortably, in no distress. HEART: Regular rate and rhythm. LUNGS: Clear to auscultation bilaterally. ABDOMEN: Bowel sounds present, soft, with some tenderness to palpation on the right side, but no gua rding or rebound tenderness. EXTREMITIES: No peripheral edema. LABORATORY STUDIES: Hemoglobin 9.0, WBC 7.8, platelets 152. Sodium 130, potassium 4.1, BUN 18, crea tinine 0.90, glucose 55. Lactic acid 0.6. Lipase 364. Cortisol 4.2. LFTs all normal with total bi lirubin 0.4, alkaline phosphatase 81, AST 22, ALT less than 7. Beta hydroxybutyrate elevated at 4.08 . Esophageal, duodenal, and colon biopsies, all pending. Serum CMV DNA PCR, histoplasma antigen, an d QuantiFERON are all pending. ASSESSMENT AND PLAN: 1. Distal esophageal ulcer, biopsies pending. This could be consistent with CMV or other virus. Al so, consider pill esophagitis, as the patient does evidently take a bisphosphonate. 2. Colitis with discrete ulcerations, likely viral etiology. 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 Awaiting CMV titers an d awaiting all biopsy results. Agree with having started the IV ganciclovir. Appreciate Dr. Phillips' assistance. 4. Elevated lipase. Lipase is elevated today. Note that her CT scan on admission did not demonstra te any imaging evidence of pancreatitis. I think this represents true pancreatitis. Continue clear liquid diet for now. Hopefully, we will be able to advance diet as tolerated if symptoms improve in the coming days.
[2017-08-27] MEDS: SODIUM CHLORIDE 0.9% IVPB SCH (17:26)
[2017-08-27] MEDS: GANCICLOVIR SODIUM IVPB SCH (17:26)
[2017-08-27] MEDS ORDERED: GANCICLOVIR SODIUM IVPB SCH (18:00)
[2017-08-27] MEDS ORDERED: SODIUM CHLORIDE 0.9% IVPB SCH (18:00)
--- NOTE | 2017-08-27 18:28 | PDOC.CTH ---
Cardiology Progress Note - Subjective No chest pain, Breathing at baseline. - Objective Vital Signs Temp Pulse Resp BP Pulse Ox 08/27/17 16:41 98.5 F 93 16 133/61 93 L 08/27/17 12:00 99.1 F 97 16 140/63 97 08/27/17 07:35 97.6 F 108 H 16 100 08/27/17 07:31 97.6 F 108 H 16 125/60 100 Admit Weight 90 lb Weight 92 lb 08/26/17 08/27/17 08/28/17 06:59 06:59 06:59 Intake Total 2900 3177 Output Total 1450 900 Balance 1450 2277 - Physical Examination General/Neuro: alert & oriented x3, NAD Neck: no JVD present Lungs: unlabored respirations Heart: RRR Abdomen: NT/ND Extremities: other: (no edema) - Telemetry Telemetry Rhythm: NSR - Labs Result Diagrams: 08/27/17 05:00 08/27/17 15:00 - Assessment/Plan 1. Chronic diarrhea. 2. SLE 3. UTI 4 Weakness. PLAN: - Normal LV function on echo without significant abnormalities. - Sinus tachycardia likely from underlying illness. - Will sign off. please call with any questions.
[2017-08-28] MEDS: Sodium Bicarbonate 150 MEQ, Admixture Fee 1 EACH in Dextrose 5% in Water 1,000 ML IV SCH ×2 (00:03→17:34)
[2017-08-28 06:28] LABS: ALT (SGPT) 9 U/L (8-55); AST (SGOT) 19 U/L (5-34); Albumin 2.2 g/dL (3.4-4.8); Alkaline Phosphatase 73 U/L (40-150); Anion Gap 13 mmol/L (10-20); BUN (Urea Nitrogen) 15 mg/dL (9.8-20.1); Bilirubin, Total 0.4 mg/dL (0.2-1.2); Calc. Creatinine Clearance 38 mL/min (70-130); Calcium 7.1 mg/dL (7.8-10.44); Carbon Dioxide 22 mmol/L (23-31); Chloride 100 mmol/L (98-107); Estimated GFR-MDRD 58; Globulin 1.9 g/dL (2.4-3.5); Glucose 122 mg/dL (80-115); Potassium 3.5 mmol/L (3.5-5.1); Protein, Total 4.1 g/dL (6.0-8.3); Sodium 131 mmol/L (136-145)
[2017-08-28] MEDS ORDERED: Potassium Chloride 20 MEQ TAB PO SCH (07:45)
[2017-08-28] MEDS: Hydroxychloroquine Sulfate 200 MG TAB PO SCH (09:18)
[2017-08-28] MEDS: Nystatin 500,000 UNITS/5 ML UDCUP SSW SCH (09:20)
[2017-08-28] MEDS: Mycophenolate 250 MG CAP PO SCH ×2 (09:20→21:53)
[2017-08-28] MEDS: predniSONE 5 MG TAB PO SCH (09:20)
--- NOTE | 2017-08-28 10:20 | PDOC.PN ---
- Subjective Encounter Start Date: 08/28/17 Encounter Start Time: 08:00 pt is very weak, last night for low spo2 required oxygen, no fever, less diarrhoea - Objective MAR Reviewed: Yes Vital Signs & Weight: Vital Signs (12 hours) Temp Pulse Resp BP Pulse Ox 08/28/17 07:40 97.7 F 81 20 119/62 90 L 08/28/17 04:00 99.4 F 86 18 138/60 92 L Weight Admit Weight 90 lb Weight 95 lb I&O: 08/27/17 08/28/17 08/29/17 06:59 06:59 06:59 Intake Total 3177 2926 Output Total 900 1150 Balance 3117 1906 Result Diagrams: 08/27/17 05:00 08/28/17 05:10 Additional Labs: Accuchecks 08/27/17 20:34 POC Glucose 120 H EKG Reviewed by me: Yes (nsr) Phys Exam - Physical Examination Constitutional: NAD HEENT: PERRLA, moist MMs, sclera anicteric Neck: no JVD, supple Respiratory: no wheezing, no rales, no rhonchi reduced air entry Cardiovascular: RRR, no significant murmur, no rub Gastrointestinal: soft, non-tender, no distention, positive bowel sounds Musculoskeletal: no edema, pulses present Neurological: non-focal, moves all 4 limbs Lymphatic: no nodes Psychiatric: normal affect Skin: no rash, normal turgor Dx/Plan (1) Acute urinary retention Code(s): R33.8 - OTHER RETENTION OF URINE Status: Acute Comment: with kerr + (2) Emphysematous cystitis Code(s): N30.80 - OTHER CYSTITIS WITHOUT HEMATURIA Status: Acute (3) Normal anion gap metabolic acidosis Code(s): E87.2 - ACIDOSIS Status: Acute Comment: improved (4) Acute worsening of stage 3 chronic kidney disease Code(s): N18.3 - CHRONIC KIDNEY DISEASE, STAGE 3 (MODERATE) Status: Acute (5) Gastroenteritis Code(s): K52.9 - NONINFECTIVE GASTROENTERITIS AND COLITIS, UNSPECIFIED Status : Acute Comment: colitis suspecting from CMV colitis (6) Hyponatremia Code(s): E87.1 - HYPO-OSMOLALITY AND HYPONATREMIA Status: Acute (7) Sepsis Code(s): A41.9 - SEPSIS, UNSPECIFIED ORGANISM Status: Acute (8) UTI (urinary tract infection) Status: Acute Comment: due to klebsiela (9) Chronic anemia Code(s): D64.9 - ANEMIA, UNSPECIFIED Status: Chronic (10) GERD (gastroesophageal reflux disease) Code(s): K21.9 - GASTRO-ESOPHAGEAL REFLUX DISEASE WITHOUT ESOPHAGITIS Status: Chronic Qualifiers: Esophagitis presence: esophagitis presence not specified Qualified Code(s) : K21.9 - Gastro-esophageal reflux disease without esophagitis (11) Hyperlipidemia Code(s): E78.5 - HYPERLIPIDEMIA, UNSPECIFIED Status: Chronic Qualifiers: Hyperlipidemia type: unspecified Qualified Code(s): E78.5 - Hyperlipidemia , unspecified (12) Hypertension Code(s): I10 - ESSENTIAL (PRIMARY) HYPERTENSION Status: Chronic Qualifiers: Hypertension type: essential hypertension Qualified Code(s): I10 - Essential (primary) hypertension (13) SLE (systemic lupus erythematosus) Code(s): M32.9 - SYSTEMIC LUPUS ERYTHEMATOSUS, UNSPECIFIED Status: Chronic Qualifiers: Systemic lupus erythematosus type: unspecified (14) Physical deconditioning Code(s): R53.81 - OTHER MALAISE Status: Acute - Plan cont current plan of care, plan discussed w/ family, continue antibiotics, PT/OT , social media executive, incentive spirometry * start incetive spiromentry * continue IV Genciclovir * continue levaquin * continue kerr care * start PT/OT * she will need placement on discharge, will consult senior case manager * advance to full liquid diet * follow pathology report and cmv dna test. Review of Systems - Review of Systems Constitutional: weakness. negative: fever, chills, sweats, malaise, other Respiratory: negative: Cough, Dry, Shortness of Breath, Hemoptysis, SOB with Excertion, Pleuritic Pain, Sputum, Wheezing Cardiovascular: negative: chest pain, palpitations, orthopnea, paroxysmal nocturnal dyspnea, edema, light headedness, other Gastrointestinal: negative: Nausea, Vomiting, Abdominal Pain, Diarrhea, Constipation, Melena, Hematochezia, Other Genitourinary: negative: Dysuria, Frequency, Incontinence, Hematuria, Retention , Other Musculoskeletal: negative: Neck Pain, Shoulder Pain, Arm Pain, Back Pain, Hand Pain, Leg Pain, Foot Pain, Other Skin: negative: Rash, Lesions, Surya, Bruising, Other - Medications/Allergies Allergies/Adverse Reactions: Allergies Allergy/AdvReac Type Severity Reaction Status Date / Time iron Allergy Severe Rash Verified 08/24/17 22:19 Sulfa (Sulfonamide Allergy Severe Rash Verified 08/24/17 22:19 Antibiotics) Medications: Current Medications Acetaminophen (Tylenol) 650 mg PO Q4H PRN PRN Reason: Headache/Fever or Pain Last Admin: 08/25/17 19:17 Dose: 650 mg Hydrocodone Bitart/Acetaminophen ([place] 5/325) 1 tab PO Q4H PRN PRN Reason: Moderate Pain (4-6) Albuterol/Ipratropium (Duoneb) 3 ml NEB [id number] PRN PRN Reason: SOB &/or Wheezing Calcitriol (Rocaltrol) 0.25 mcg PO MWF [facility] Last Admin: 08/27/17 09:28 Dose: 0.25 mcg Cholecalciferol (Vitamin D3) 5,000 units PO DAILY [facility] Last Admin: 08/28/17 09:19 Dose: 5,000 units Hydroxychloroquine Sulfate (Plaquenil) 300 mg PO DAILY [facility] Last Admin: 08/28/17 09:18 Dose: 300 mg Levofloxacin 500 mg/ Device 100 mls @ 100 mls/hr IVPB Q24HR [facility] Last Admin: 08/28/17 09:25 Dose: 100 mls Ganciclovir Sodium 120 mg/ (Sodium Chloride) 252.4 mls @ 252.4 mls/hr IVPB 1800 [facility] Last Admin: 08/27/17 17:26 Dose: 252.4 mls Sodium Bicarbonate 150 meq/Miscellaneous Medication 1 each/ Dextrose/Water 1, 150 mls @ 50 mls/hr IV .Q23H [facility] Loperamide HCl (Imodium) 2 mg PO PRN PRN PRN Reason: Diarrhea/Loose Stools Metoprolol Succinate (Toprol Xl) 100 mg PO DAILY [facility] Last Admin: 08/28/17 09:19 Dose: 100 mg Mycophenolate Mofetil (Cellcept) 1,000 mg PO BID [facility] Last Admin: 08/28/17 09:20 Dose: 1,000 mg Nystatin (Mycostatin) 2 units SSW DAILY [facility] Last Admin: 08/28/17 09:20 Dose: Not Given Ondansetron HCl (Zofran Odt) 4 mg PO Q6H PRN PRN Reason: Nausea/Vomiting Last Admin: 08/27/17 07:12 Dose: 4 mg Pantoprazole Sodium (Protonix) 40 mg PO DAILY [facility] Last Admin: 08/28/17 09:20 Dose: 40 mg Prednisone (Prednisone) 25 mg PO QAM-WM [facility] Last Admin: 08/28/17 09:20 Dose: 25 mg Sodium Chloride (Flush - Normal Saline) 10 ml IVF Q12HR [facility] Last Admin: 08/28/17 09:21 Dose: 10 ml Sodium Chloride (Flush - Normal Saline) 10 ml IVF PRN PRN PRN Reason: Saline Flush
[2017-08-28 13:17] LABS: CMV log 10 Quant 5.055 (.)
[2017-08-28] MEDS: Acetaminophen 325 MG TAB PO PRN (17:33)
[2017-08-28] MEDS: GANCICLOVIR SODIUM IVPB SCH (18:19)
[2017-08-28] MEDS: SODIUM CHLORIDE 0.9% IVPB SCH (18:19)
--- NOTE | 2017-08-28 22:05 | PRG ---
DATE OF SERVICE: 08/28/2017 SUBJECTIVE: Ms. Burnett is not having any abdominal pain or nausea. She tried advancing her diet t o full liquids today and had some potato soup, but this did cause quite significant diarrhea and so s he has gone back to liquids. She has no other complaints today. OBJECTIVE: VITAL SIGNS: Temperature 99.3, blood pressure 121/56, pulse 80, 98% oxygen saturation on 2 liters na heather cannula. GENERAL: No acute distress. HEART: Regular rate and rhythm. LUNGS: Clear to auscultation bilaterally. ABDOMEN: Bowel sounds present, soft, and nontender to palpation. EXTREMITIES: No peripheral edema. LABORATORY STUDIES: CMV DNA titer came back at [id number]. Sodium 131, potassium 3.5, BUN 15, creatinin e 0.96, glucose 122. LFTs remain normal. Biopsies came back, duodenal biopsies were unremarkable, e sophageal ulcer biopsies and colon biopsies all demonstrate acute esophagitis and acute colitis with ulceration. There is no evidence of any chronicity or dysplasia. Special stains for CMV and HSV are still pending. Serum Entamoeba serology and histoplasma are also pending. ASSESSMENT AND PLAN: 1. Colitis with ulcerations, likely viral secondary to CMV. 2. Esophagitis with ulceration, also likely secondary to CMV. 3. CMV viremia. 4. Diarrhea, secondary to colitis. The patient's CMV viremia is confirmed and biopsy results so far remain consistent with CMV esophagit is and CMV colitis. Immunohistochemical stains are pending and we will await those results. Continu e with the IV ganciclovir as directed by Dr. Phillips. I appreciate his assistance. I discussed with t he patient that it will take some time to see symptomatic improvement. Take it day by day and advanc e diet as tolerated.
[2017-08-29] MEDS: Ondansetron ODT 4 MG TAB PO PRN (05:53)
[2017-08-29] MEDS: Acetaminophen 325 MG TAB PO PRN (05:54)
[2017-08-29 08:12] LABS: #Lymphocytes 0.9 thou/uL (1.20-3.40); #Monocytes 0.4 thou/uL (0.11-0.59); #Neutrophils 6.5 thou/uL (1.40-6.50); %Basophils 0.3 % (0.0-1.0); %Eosinophils 0.1 % (0.0-10.0); %Lymphocytes 11.3 % (21.0-51.0); %Monocytes 4.7 % (0.0-10.0); %Neutrophils 83.7 % (42.0-75.0); Hemoglobin 8.5 g/dL (12.0-16.0); Mean Corpuscular HGB CONC 31.2 g/dL (32.0-36.0); Mean Corpuscular Hemoglobin 29.4 pg (27.0-31.0); Mean Corpuscular Volume 94.2 fl (81.0-99.0); Mean Platelet Volume 12.6 fL (7.4-10.4); Platelet Count 131 thou/uL (130-400); RBC Distribution Width 15.8 % (11.5-14.5); Red Blood Cell (RBC) Count 2.89 mill/uL (4.20-5.40); White Blood Cell (WBC) Count 7.8 thou/uL (4.8-10.8)
--- NOTE | 2017-08-29 08:23 | RAD ---
PORTABLE CHEST 1 VIEW: Date: 08/29/17 Time: 0813 hours HISTORY: Hypoxia. FINDINGS: Comparison made with exam of 08/12/17. The heart size is normal. The aorta is tortuous. There are bilateral pleural effusions with adjacent infiltrate/atelectatic changes. No pneumothoraces are seen. POS: [facility]
[2017-08-29 08:32] LABS: ALT (SGPT) Less than 7 U/L (8-55); AST (SGOT) 16 U/L (5-34); Alkaline Phosphatase 75 U/L (40-150); Anion Gap 9 mmol/L (10-20); BUN (Urea Nitrogen) 14 mg/dL (9.8-20.1); Bilirubin, Total 0.5 mg/dL (0.2-1.2); Calc. Creatinine Clearance 39 mL/min (70-130); Calcium 6.9 mg/dL (7.8-10.44); Carbon Dioxide 27 mmol/L (23-31); Chloride 97 mmol/L (98-107); Estimated GFR-MDRD 60; Globulin 1.6 g/dL (2.4-3.5); Glucose 96 mg/dL (80-115); Lipase 444 U/L (8-78); Magnesium 1.3 mg/dL (1.6-2.6); Potassium 3.2 mmol/L (3.5-5.1); Protein, Total 3.6 g/dL (6.0-8.3); Sodium 130 mmol/L (136-145)
[2017-08-29 08:41] LABS: Phosphorus 1.6 mg/dL (2.3-4.7)
[2017-08-29] MEDS: Calcitriol 0.25 MCG CAP PO SCH (09:21)
[2017-08-29] MEDS: predniSONE 5 MG TAB PO SCH (09:22)
[2017-08-29] MEDS: Mycophenolate 250 MG CAP PO SCH ×2 (09:22→19:47)
[2017-08-29] MEDS: Hydroxychloroquine Sulfate 200 MG TAB PO SCH (09:23)
[2017-08-29] MEDS: Sodium Bicarbonate 150 MEQ, Admixture Fee 1 EACH in Dextrose 5% in Water 1,000 ML IV SCH (09:42)
--- NOTE | 2017-08-29 09:59 | PDOC.PN ---
- Subjective Encounter Start Date: 08/29/17 Encounter Start Time: 08:00 Patient seen and examined. No new complaints. No overnight events - Objective MAR Reviewed: Yes Vital Signs & Weight: Vital Signs (12 hours) Temp Pulse Resp BP Pulse Ox 08/29/17 08:45 98.6 F 71 18 110/56 L 92 L 08/29/17 03:26 98.4 F 74 16 113/56 L 90 L Weight Admit Weight 90 lb Weight 95 lb 8 oz I&O: 08/28/17 08/29/17 08/30/17 06:59 06:59 06:59 Intake Total 2926 2210 Output Total 1150 1000 Balance 1776 1210 Result Diagrams: 08/29/17 07:56 08/29/17 07:56 EKG Reviewed by me: Yes (nsr) Phys Exam - Physical Examination Constitutional: NAD HEENT: PERRLA, moist MMs, sclera anicteric Neck: no JVD, supple Respiratory: no wheezing, no rales, no rhonchi Cardiovascular: RRR, no significant murmur, no rub Gastrointestinal: soft, non-tender, no distention, positive bowel sounds Musculoskeletal: no edema, pulses present Neurological: non-focal, normal sensation Psychiatric: normal affect, A&O x 3 Skin: no rash, normal turgor Dx/Plan (1) Acute urinary retention Code(s): R33.8 - OTHER RETENTION OF URINE Status: Acute Comment: with kerr + (2) Emphysematous cystitis Code(s): N30.80 - OTHER CYSTITIS WITHOUT HEMATURIA Status: Acute (3) Normal anion gap metabolic acidosis Code(s): E87.2 - ACIDOSIS Status: Acute Comment: improved (4) Acute worsening of stage 3 chronic kidney disease Code(s): N18.3 - CHRONIC KIDNEY DISEASE, STAGE 3 (MODERATE) Status: Acute (5) Hyponatremia Code(s): E87.1 - HYPO-OSMOLALITY AND HYPONATREMIA Status: Acute (6) Sepsis Code(s): A41.9 - SEPSIS, UNSPECIFIED ORGANISM Status: Acute (7) UTI (urinary tract infection) Status: Acute Comment: due to klebsiela (8) Chronic anemia Code(s): D64.9 - ANEMIA, UNSPECIFIED Status: Chronic (9) GERD (gastroesophageal reflux disease) Code(s): K21.9 - GASTRO-ESOPHAGEAL REFLUX DISEASE WITHOUT ESOPHAGITIS Status: Chronic Qualifiers: Esophagitis presence: esophagitis presence not specified Qualified Code(s) : K21.9 - Gastro-esophageal reflux disease without esophagitis (10) Hyperlipidemia Code(s): E78.5 - HYPERLIPIDEMIA, UNSPECIFIED Status: Chronic Qualifiers: Hyperlipidemia type: unspecified Qualified Code(s): E78.5 - Hyperlipidemia , unspecified (11) Hypertension Code(s): I10 - ESSENTIAL (PRIMARY) HYPERTENSION Status: Chronic Qualifiers: Hypertension type: essential hypertension Qualified Code(s): I10 - Essential (primary) hypertension (12) SLE (systemic lupus erythematosus) Code(s): M32.9 - SYSTEMIC LUPUS ERYTHEMATOSUS, UNSPECIFIED Status: Chronic Qualifiers: Systemic lupus erythematosus type: unspecified (13) Physical deconditioning Code(s): R53.81 - OTHER MALAISE Status: Acute (14) Atelectasis of both lungs Code(s): J98.11 - ATELECTASIS Status: Acute (15) Hypokalemia Code(s): E87.6 - HYPOKALEMIA Status: Acute (16) Hypophosphatemia Code(s): E83.39 - OTHER DISORDERS OF PHOSPHORUS METABOLISM Status: Acute (17) Hypomagnesemia Code(s): E83.42 - HYPOMAGNESEMIA Status: Acute (18) Acute respiratory failure with hypoxia Code(s): J96.01 - ACUTE RESPIRATORY FAILURE WITH HYPOXIA Status: Acute (19) Colitis, CMV Code(s): A08.39 - OTHER VIRAL ENTERITIS; B25.9 - CYTOMEGALOVIRAL DISEASE, UNSPECIFIED Status: Acute (20) Esophagitis, CMV Code(s): K20.8 - OTHER ESOPHAGITIS; B25.8 - OTHER CYTOMEGALOVIRAL DISEASES Status: Acute - Plan cont current plan of care, plan discussed w/ family, continue antibiotics, PT/OT , social worker palliative care, respiratory therapy, incentive spirometry * chest xray shows atelectesis vs infiltration ? CMV pneumonia * continue levaquin * continue genciclovir * dc bicarb drip * replace potassium phosphate, magnesium sulfate * repeat labs tomorrow * discussed with family. Review of Systems - Review of Systems Constitutional: weakness, malaise. negative: fever, chills, sweats, other ENT: negative: Ear Pain, Ear Discharge, Nose Pain, Nose Discharge, Nose Congestion, Mouth Pain, Mouth Swelling, Throat Pain, Throat Swelling, Other Respiratory: negative: Cough, Dry, Shortness of Breath, Hemoptysis, SOB with Excertion, Pleuritic Pain, Sputum, Wheezing Cardiovascular: negative: chest pain, palpitations, orthopnea, paroxysmal nocturnal dyspnea, edema, light headedness, other Gastrointestinal: negative: Nausea, Vomiting, Abdominal Pain, Diarrhea, Constipation, Melena, Hematochezia, Other Genitourinary: negative: Dysuria, Frequency, Incontinence, Hematuria, Retention , Other Musculoskeletal: negative: Neck Pain, Shoulder Pain, Arm Pain, Back Pain, Hand Pain, Leg Pain, Foot Pain, Other Skin: negative: Rash, Lesions, Surya, Bruising, Other - Medications/Allergies Allergies/Adverse Reactions: Allergies Allergy/AdvReac Type Severity Reaction Status Date / Time iron Allergy Severe Rash Verified 08/24/17 22:19 Sulfa (Sulfonamide Allergy Severe Rash Verified 08/24/17 22:19 Antibiotics) Medications: Current Medications Acetaminophen (Tylenol) 650 mg PO Q4H PRN PRN Reason: Headache/Fever or Pain Last Admin: 08/29/17 05:54 Dose: 650 mg Hydrocodone Bitart/Acetaminophen ([place] 5/325) 1 tab PO Q4H PRN PRN Reason: Moderate Pain (4-6) Albuterol/Ipratropium (Duoneb) 3 ml NEB [id number] PRN PRN Reason: SOB &/or Wheezing Calcitriol (Rocaltrol) 0.25 mcg PO MWF [facility] Last Admin: 08/29/17 09:21 Dose: 0.25 mcg Cholecalciferol (Vitamin D3) 5,000 units PO DAILY [facility] Last Admin: 08/29/17 09:21 Dose: 5,000 units Hydroxychloroquine Sulfate (Plaquenil) 300 mg PO DAILY [facility] Last Admin: 08/29/17 09:23 Dose: 300 mg Levofloxacin 500 mg/ Device 100 mls @ 100 mls/hr IVPB Q24HR [facility] Last Admin: 08/29/17 09:21 Dose: 100 mls Ganciclovir Sodium 120 mg/ (Sodium Chloride) 252.4 mls @ 252.4 mls/hr IVPB 1800 [facility] Last Admin: 08/28/17 18:19 Dose: 252.4 mls Magnesium Sulfate 3 gm/ Sodium (Chloride) 106 mls @ 100 mls/hr IVPB ONE [facility] Potassium Phosphate 30 mmol/ (Sodium Chloride) 510 mls @ 83.3 mls/hr IVPB ONE [facility] Loperamide HCl (Imodium) 2 mg PO PRN PRN PRN Reason: Diarrhea/Loose Stools Metoprolol Succinate (Toprol Xl) 100 mg PO DAILY [facility] Last Admin: 08/29/17 09:21 Dose: 100 mg Mycophenolate Mofetil (Cellcept) 1,000 mg PO BID [facility] Last Admin: 08/29/17 09:22 Dose: 1,000 mg Nystatin (Mycostatin) 2 units SSW DAILY [facility] Last Admin: 08/28/17 09:20 Dose: Not Given Ondansetron HCl (Zofran Odt) 4 mg PO Q6H PRN PRN Reason: Nausea/Vomiting Last Admin: 08/29/17 05:53 Dose: 4 mg Pantoprazole Sodium (Protonix) 40 mg PO DAILY [facility] Last Admin: 08/29/17 09:23 Dose: 40 mg Prednisone (Prednisone) 25 mg PO QAM-WM [facility] Last Admin: 08/29/17 09:22 Dose: 25 mg Sodium Chloride (Flush - Normal Saline) 10 ml IVF Q12HR [facility] Last Admin: 08/29/17 09:24 Dose: Not Given Sodium Chloride (Flush - Normal Saline) 10 ml IVF PRN PRN PRN Reason: Saline Flush
[2017-08-29] MEDS ORDERED: Magnesium Sulfate 3 GM in Sodium Chloride 0.9% 100 ML IVPB SCH (10:15)
[2017-08-29] MEDS ORDERED: Potassium Phosphate 30 MMOL in Sodium Chloride 0.9% 500 ML IVPB SCH (10:15)
[2017-08-29] MEDS ORDERED: Famotidine/PF 20 mg/2ml Vial SLOW IVP SCH ×2 (13:15→21:00)
[2017-08-29] MEDS: Nystatin 500,000 UNITS/5 ML UDCUP SSW SCH (13:21)
--- NOTE | 2017-08-29 14:25 | PRG ---
DATE OF SERVICE: 08/29/2017 GASTROINTESTINAL INPATIENT DAILY PROGRESS NOTE SUBJECTIVE: Ms. Burnett is not having any abdominal pain or nausea. She is tolerating her full liq uid diet. She had some grits with no difficulty earlier today. Diarrhea does persist. OBJECTIVE: VITAL SIGNS: Temperature 98.3, pulse 76, blood pressure 130/60, 90% oxygen saturation on 4 liters na heather cannula. GENERAL: No acute distress. HEART: Regular rate and rhythm. LUNGS: Clear to auscultation bilaterally. ABDOMEN: Soft and nontender. EXTREMITIES: No peripheral edema. LABORATORY STUDIES: Hemoglobin 8.5, WBC 7.8, platelets 131. Sodium 130, potassium 3.2, BUN 14, crea tinine 0.93, glucose 96, phosphorus 1.6, magnesium 1.3. LFTs remain normal. Lipase 444. Beta hydro xybutyrate 0.22. Immunohistochemical staining on the esophageal and colon ulcer, biopsies are still pending. Chest x-ray from this morning showed bilateral pleural effusions with adjacent infiltrate a nd atelectasis. ASSESSMENT AND PLAN: 1. Cytomegalovirus colitis. 2. Cytomegalovirus esophagitis. 3. Diarrhea, secondary to cytomegalovirus colitis. Continue antibiotic treatment for CMV. Advance diet as tolerated. Expect slow improvement from a ga strointestinal perspective. Antiviral duration as per Infectious Disease recommendations. I will be next week. For any gastrointestinal issues in the meantime, Dr. Amaya is covering for the irwin haas.
[2017-08-29] MEDS ORDERED: diphenhydrAMINE 25 MG CAP PO PRN (18:10)
[2017-08-29] MEDS: SODIUM CHLORIDE 0.9% IVPB SCH (19:28)
[2017-08-29] MEDS: GANCICLOVIR SODIUM IVPB SCH (19:28)
[2017-08-29] MEDS ORDERED: Famotidine/PF 20 mg/2ml Vial IVPB SCH (21:00)
[2017-08-30] MEDS: Acetaminophen 325 MG TAB PO PRN (02:13)
[2017-08-30] MEDS: diphenhydrAMINE 25 MG CAP PO SCH ×4 (02:37→18:24)
[2017-08-30 06:17] LABS: #Lymphocytes 0.7 thou/uL (1.20-3.40); #Monocytes 0.3 thou/uL (0.11-0.59); #Neutrophils 6.9 thou/uL (1.40-6.50); %Basophils 0.4 % (0.0-1.0); %Eosinophils 0.1 % (0.0-10.0); %Lymphocytes 8.4 % (21.0-51.0); %Monocytes 3.9 % (0.0-10.0); %Neutrophils 87.2 % (42.0-75.0); Hemoglobin 8.9 g/dL (12.0-16.0); Mean Corpuscular HGB CONC 31.4 g/dL (32.0-36.0); Mean Corpuscular Hemoglobin 29.5 pg (27.0-31.0); Mean Platelet Volume 10.5 fL (7.4-10.4); Platelet Count 140 thou/uL (130-400); RBC Distribution Width 15.8 % (11.5-14.5); White Blood Cell (WBC) Count 7.9 thou/uL (4.8-10.8)
[2017-08-30 06:22] LABS: Anion Gap 10 mmol/L (10-20); BUN (Urea Nitrogen) 13 mg/dL (9.8-20.1); Calc. Creatinine Clearance 40 mL/min (70-130); Carbon Dioxide 27 mmol/L (23-31); Chloride 99 mmol/L (98-107); Estimated GFR-MDRD 62; Glucose 84 mg/dL (80-115); Magnesium 1.9 mg/dL (1.6-2.6); Phosphorus 3.1 mg/dL (2.3-4.7); Potassium 3.7 mmol/L (3.5-5.1); Sodium 132 mmol/L (136-145)
[2017-08-30] MEDS ORDERED: Artificial Tears 18 DROP/0.9 ML EA EYE PRN (07:37)
[2017-08-30] MEDS ORDERED: Diabetic Tussin 200 MG/10 ML UDCUP PO PRN (07:37)
[2017-08-30] MEDS ORDERED: Eucerin (Mineral Oil/Petrolatum,White) 30 gm Jar TOP PRN (07:37)
[2017-08-30] MEDS ORDERED: Chloraseptic Spray 180 ml Bottle PO PRN (07:37)
[2017-08-30] MEDS ORDERED: hydrALAZINE 20 MG/ML VIAL SLOW IVP PRN (07:37)
[2017-08-30] MEDS ORDERED: Furosemide 40 MG/4 ML VIAL SLOW IVP SCH (07:45)
[2017-08-30] MEDS ORDERED: Famotidine/PF 20 mg/2ml Vial IVPB SCH (09:00)
[2017-08-30] MEDS: Mycophenolate 250 MG CAP PO SCH ×2 (09:37→20:13)
[2017-08-30] MEDS: predniSONE 5 MG TAB PO SCH (09:38)
--- NOTE | 2017-08-30 10:53 | PDOC.PN ---
- Subjective Encounter Start Date: 08/30/17 Encounter Start Time: 09:00 last night pt was confused and hallucinating, this morning she is normal - Objective MAR Reviewed: Yes Vital Signs & Weight: Vital Signs (12 hours) Temp Pulse Resp BP Pulse Ox 08/30/17 07:57 99.3 F 67 18 125/69 93 L 08/30/17 03:53 98.3 F 75 16 130/64 90 L 08/29/17 23:22 98.9 F 75 20 119/59 L 92 L Weight Admit Weight 90 lb Weight 94 lb 9.6 oz I&O: 08/29/17 08/30/17 08/31/17 06:59 06:59 06:59 Intake Total 2210 680 Output Total 1000 1200 Balance 1210 -520 Result Diagrams: 08/30/17 05:40 08/30/17 05:40 Phys Exam - Physical Examination Constitutional: NAD HEENT: PERRLA, moist MMs, sclera anicteric Neck: no JVD, supple Respiratory: no wheezing, no rhonchi basal rales Cardiovascular: RRR, no significant murmur, no rub Gastrointestinal: soft, non-tender, no distention, positive bowel sounds Musculoskeletal: no edema, pulses present Neurological: non-focal, normal sensation Lymphatic: no nodes Psychiatric: normal affect Skin: no rash, normal turgor Dx/Plan (1) Acute urinary retention Code(s): R33.8 - OTHER RETENTION OF URINE Status: Acute Comment: with kerr + (2) Emphysematous cystitis Code(s): N30.80 - OTHER CYSTITIS WITHOUT HEMATURIA Status: Acute (3) Normal anion gap metabolic acidosis Code(s): E87.2 - ACIDOSIS Status: Acute Comment: improved (4) Acute worsening of stage 3 chronic kidney disease Code(s): N18.3 - CHRONIC KIDNEY DISEASE, STAGE 3 (MODERATE) Status: Acute (5) Hyponatremia Code(s): E87.1 - HYPO-OSMOLALITY AND HYPONATREMIA Status: Acute (6) Sepsis Code(s): A41.9 - SEPSIS, UNSPECIFIED ORGANISM Status: Acute (7) UTI (urinary tract infection) Status: Acute Comment: due to klebsiela (8) Chronic anemia Code(s): D64.9 - ANEMIA, UNSPECIFIED Status: Chronic (9) GERD (gastroesophageal reflux disease) Code(s): K21.9 - GASTRO-ESOPHAGEAL REFLUX DISEASE WITHOUT ESOPHAGITIS Status: Chronic Qualifiers: Esophagitis presence: esophagitis presence not specified Qualified Code(s) : K21.9 - Gastro-esophageal reflux disease without esophagitis (10) Hyperlipidemia Code(s): E78.5 - HYPERLIPIDEMIA, UNSPECIFIED Status: Chronic Qualifiers: Hyperlipidemia type: unspecified Qualified Code(s): E78.5 - Hyperlipidemia , unspecified (11) Hypertension Code(s): I10 - ESSENTIAL (PRIMARY) HYPERTENSION Status: Chronic Qualifiers: Hypertension type: essential hypertension Qualified Code(s): I10 - Essential (primary) hypertension (12) SLE (systemic lupus erythematosus) Code(s): M32.9 - SYSTEMIC LUPUS ERYTHEMATOSUS, UNSPECIFIED Status: Chronic Qualifiers: Systemic lupus erythematosus type: unspecified (13) Physical deconditioning Code(s): R53.81 - OTHER MALAISE Status: Acute (14) Atelectasis of both lungs Code(s): J98.11 - ATELECTASIS Status: Acute (15) Hypokalemia Code(s): E87.6 - HYPOKALEMIA Status: Acute (16) Hypophosphatemia Code(s): E83.39 - OTHER DISORDERS OF PHOSPHORUS METABOLISM Status: Acute (17) Hypomagnesemia Code(s): E83.42 - HYPOMAGNESEMIA Status: Acute (18) Acute respiratory failure with hypoxia Code(s): J96.01 - ACUTE RESPIRATORY FAILURE WITH HYPOXIA Status: Acute (19) Colitis, CMV Code(s): A08.39 - OTHER VIRAL ENTERITIS; B25.9 - CYTOMEGALOVIRAL DISEASE, UNSPECIFIED Status: Acute (20) Esophagitis, CMV Code(s): K20.8 - OTHER ESOPHAGITIS; B25.8 - OTHER CYTOMEGALOVIRAL DISEASES Status: Acute (21) Delirium Code(s): R41.0 - DISORIENTATION, UNSPECIFIED Status: Resolved Comment: multifectorial - Plan cont current plan of care, plan discussed w/ family, continue antibiotics, PT/OT , social secretary, respiratory therapy, incentive spirometry * will give dose of lasix * continue genciclovir and levaquin * discussed with family and answered all their questions * medication reviewed as below * symptomatic treatment. Review of Systems - Review of Systems Constitutional: weakness, malaise. negative: fever, chills, sweats, other ENT: negative: Ear Pain, Ear Discharge, Nose Pain, Nose Discharge, Nose Congestion, Mouth Pain, Mouth Swelling, Throat Pain, Throat Swelling, Other Respiratory: negative: Cough, Dry, Shortness of Breath, Hemoptysis, SOB with Excertion, Pleuritic Pain, Sputum, Wheezing Cardiovascular: negative: chest pain, palpitations, orthopnea, paroxysmal nocturnal dyspnea, edema, light headedness, other Gastrointestinal: Diarrhea. negative: Nausea, Vomiting, Abdominal Pain, Constipation, Melena, Hematochezia, Other Musculoskeletal: negative: Neck Pain, Shoulder Pain, Arm Pain, Back Pain, Hand Pain, Leg Pain, Foot Pain, Other Skin: negative: Rash, Lesions, Surya, Bruising, Other Neurological: Confusion. negative: Weakness, Numbness, Incoordination, Change in Speech, Seizures, Other - Medications/Allergies Allergies/Adverse Reactions: Allergies Allergy/AdvReac Type Severity Reaction Status Date / Time iron Allergy Severe Rash Verified 08/24/17 22:19 Sulfa (Sulfonamide Allergy Severe Rash Verified 08/24/17 22:19 Antibiotics) magnesium sulfate Allergy Verified 08/29/17 16:23 sulfate Allergy Uncoded 08/29/17 13:06 Medications: Current Medications Acetaminophen (Tylenol) 650 mg PO Q4H PRN PRN Reason: Headache/Fever or Pain Last Admin: 08/30/17 02:13 Dose: 650 mg Hydrocodone Bitart/Acetaminophen ([place] 5/325) 1 tab PO Q4H PRN PRN Reason: Moderate Pain (4-6) Albuterol/Ipratropium (Duoneb) 3 ml NEB [id number] PRN PRN Reason: SOB &/or Wheezing Artificial Tears (Tears Naturale) 0 drop EA EYE PRN PRN PRN Reason: Dry Eyes Calcitriol (Rocaltrol) 0.25 mcg PO MWF [facility] Last Admin: 08/29/17 09:21 Dose: 0.25 mcg Cholecalciferol (Vitamin D3) 5,000 units PO DAILY [facility] Last Admin: 08/30/17 09:40 Dose: 5,000 units Diphenhydramine HCl (Benadryl) 25 mg PO Q6H PRN PRN Reason: Itching & Insomnia Last Admin: 08/29/17 19:51 Dose: 25 mg Diphenhydramine HCl (Benadryl) 25 mg PO Q6HR [facility] Last Admin: 08/30/17 05:44 Dose: 25 mg Guaifenesin (Robitussin Sf) 200 mg PO Q4H PRN PRN Reason: Cough Hydralazine HCl (Apresoline) 10 mg SLOW IVP Q4H PRN PRN Reason: Systolic BP > 180 Hydroxychloroquine Sulfate (Plaquenil) 300 mg PO DAILY [facility] Last Admin: 08/29/17 09:23 Dose: 300 mg Levofloxacin 500 mg/ Device 100 mls @ 100 mls/hr IVPB Q24HR [facility] Last Admin: 08/30/17 10:05 Dose: 100 mls Ganciclovir Sodium 120 mg/ (Sodium Chloride) 252.4 mls @ 252.4 mls/hr IVPB 1800 [facility] Last Admin: 08/29/17 19:28 Dose: 252.4 mls Loperamide HCl (Imodium) 2 mg PO PRN PRN PRN Reason: Diarrhea/Loose Stools Metoprolol Succinate (Toprol Xl) 100 mg PO DAILY [facility] Last Admin: 08/30/17 09:38 Dose: 100 mg Mineral Oil/White Petrolatum (Eucerin Cream) 0 gm TOP BIDPRN PRN PRN Reason: Dry Skin Mycophenolate Mofetil (Cellcept) 1,000 mg PO BID [facility] Last Admin: 08/30/17 09:37 Dose: 1,000 mg Nystatin (Mycostatin) 2 units SSW DAILY [facility] Last Admin: 08/29/17 13:21 Dose: Not Given Ondansetron HCl (Zofran Odt) 4 mg PO Q6H PRN PRN Reason: Nausea/Vomiting Last Admin: 08/29/17 05:53 Dose: 4 mg Ondansetron HCl (Zofran) 4 mg IVP Q6H PRN PRN Reason: Nausea/Vomiting Pantoprazole Sodium (Protonix) 40 mg PO DAILY [facility] Last Admin: 08/30/17 09:36 Dose: 40 mg Phenol (Chloraseptic [place] 180 Ml Bot) 0 ml PO PRN PRN PRN Reason: Sore Throat Prednisone (Prednisone) 25 mg PO QAM-[facility] Last Admin: 08/30/17 09:38 Dose: 25 mg Sodium Chloride (Flush - Normal Saline) 10 ml IVF Q12HR [facility] Last Admin: 08/30/17 10:07 Dose: 10 ml Sodium Chloride (Flush - Normal Saline) 10 ml IVF PRN PRN PRN Reason: Saline Flush Last Admin: 08/29/17 20:56 Dose: 10 ml
[2017-08-30] MEDS: Loperamide HCl 2 MG CAP PO PRN (11:19)
[2017-08-30] MEDS: Hydroxychloroquine Sulfate 200 MG TAB PO SCH (11:20)
[2017-08-30] MEDS: Nystatin 500,000 UNITS/5 ML UDCUP SSW SCH (11:29)
[2017-08-30] MEDS: Ondansetron HCl/PF 4 MG/2 ML Vial IVP PRN (14:05)
[2017-08-30] MEDS: GANCICLOVIR SODIUM IVPB SCH (18:18)
[2017-08-30] MEDS: SODIUM CHLORIDE 0.9% IVPB SCH (18:18)
[2017-08-31] MEDS: diphenhydrAMINE 25 MG CAP PO SCH ×2 (00:10→05:55)
[2017-08-31] MEDS: Acetaminophen 325 MG TAB PO PRN (03:44)
[2017-08-31] MEDS: Ondansetron HCl/PF 4 MG/2 ML Vial IVP PRN (07:52)
[2017-08-31] MEDS: Nystatin 500,000 UNITS/5 ML UDCUP SSW SCH (08:39)
[2017-08-31] MEDS: Mycophenolate 250 MG CAP PO SCH ×2 (08:39→20:58)
[2017-08-31] MEDS: predniSONE 5 MG TAB PO SCH (08:41)
[2017-08-31] MEDS: Hydroxychloroquine Sulfate 200 MG TAB PO SCH (08:42)
--- NOTE | 2017-08-31 09:11 | PDOC.PN ---
- Subjective Encounter Start Date: 08/31/17 Encounter Start Time: 07:10 after imodium diarrhoea slowed down, no fever, still requires oxygen, no fever, still weak, has poor apatite - Objective MAR Reviewed: Yes Vital Signs & Weight: Vital Signs (12 hours) Temp Pulse Resp BP Pulse Ox 08/31/17 08:07 99.2 F 122 H 24 H 132/64 91 L 08/31/17 07:22 98.7 F 88 24 H 141/65 H 92 L 08/31/17 03:49 98.7 F 72 16 146/71 H 91 L 08/31/17 00:00 98.6 F 74 16 133/65 92 L Weight Admit Weight 90 lb Weight 94 lb 9.6 oz I&O: 08/30/17 08/31/17 09/01/17 06:59 06:59 06:59 Intake Total 680 425 Output Total 1200 1150 Balance -520 -650 Result Diagrams: 08/30/17 05:40 08/30/17 05:40 Phys Exam - Physical Examination Constitutional: NAD HEENT: PERRLA, moist MMs, sclera anicteric puffy eyelid Neck: no JVD, supple Respiratory: no wheezing, no rales, no rhonchi reduced air entry at base Cardiovascular: RRR, no significant murmur, no rub Gastrointestinal: soft, non-tender, no distention, positive bowel sounds Musculoskeletal: no edema, pulses present Neurological: non-focal, normal sensation Lymphatic: no nodes Psychiatric: normal affect, A&O x 3 Skin: no rash, normal turgor Dx/Plan (1) Acute urinary retention Code(s): R33.8 - OTHER RETENTION OF URINE Status: Acute Comment: with kerr + (2) Emphysematous cystitis Code(s): N30.80 - OTHER CYSTITIS WITHOUT HEMATURIA Status: Acute (3) Normal anion gap metabolic acidosis Code(s): E87.2 - ACIDOSIS Status: Acute Comment: improved (4) Acute worsening of stage 3 chronic kidney disease Code(s): N18.3 - CHRONIC KIDNEY DISEASE, STAGE 3 (MODERATE) Status: Acute (5) Hyponatremia Code(s): E87.1 - HYPO-OSMOLALITY AND HYPONATREMIA Status: Acute (6) Sepsis Code(s): A41.9 - SEPSIS, UNSPECIFIED ORGANISM Status: Acute (7) UTI (urinary tract infection) Status: Acute Comment: due to klebsiela (8) Chronic anemia Code(s): D64.9 - ANEMIA, UNSPECIFIED Status: Chronic (9) GERD (gastroesophageal reflux disease) Code(s): K21.9 - GASTRO-ESOPHAGEAL REFLUX DISEASE WITHOUT ESOPHAGITIS Status: Chronic Qualifiers: Esophagitis presence: esophagitis presence not specified Qualified Code(s) : K21.9 - Gastro-esophageal reflux disease without esophagitis (10) Hyperlipidemia Code(s): E78.5 - HYPERLIPIDEMIA, UNSPECIFIED Status: Chronic Qualifiers: Hyperlipidemia type: unspecified Qualified Code(s): E78.5 - Hyperlipidemia , unspecified (11) Hypertension Code(s): I10 - ESSENTIAL (PRIMARY) HYPERTENSION Status: Chronic Qualifiers: Hypertension type: essential hypertension Qualified Code(s): I10 - Essential (primary) hypertension (12) SLE (systemic lupus erythematosus) Code(s): M32.9 - SYSTEMIC LUPUS ERYTHEMATOSUS, UNSPECIFIED Status: Chronic Qualifiers: Systemic lupus erythematosus type: unspecified (13) Physical deconditioning Code(s): R53.81 - OTHER MALAISE Status: Acute (14) Atelectasis of both lungs Code(s): J98.11 - ATELECTASIS Status: Acute (15) Hypokalemia Code(s): E87.6 - HYPOKALEMIA Status: Acute (16) Hypophosphatemia Code(s): E83.39 - OTHER DISORDERS OF PHOSPHORUS METABOLISM Status: Acute (17) Hypomagnesemia Code(s): E83.42 - HYPOMAGNESEMIA Status: Acute (18) Acute respiratory failure with hypoxia Code(s): J96.01 - ACUTE RESPIRATORY FAILURE WITH HYPOXIA Status: Acute (19) Colitis, CMV Code(s): A08.39 - OTHER VIRAL ENTERITIS; B25.9 - CYTOMEGALOVIRAL DISEASE, UNSPECIFIED Status: Acute (20) Esophagitis, CMV Code(s): K20.8 - OTHER ESOPHAGITIS; B25.8 - OTHER CYTOMEGALOVIRAL DISEASES Status: Acute (21) Delirium Code(s): R41.0 - DISORIENTATION, UNSPECIFIED Status: Resolved Comment: multifectorial - Plan cont current plan of care, plan discussed w/ family, continue antibiotics, PT/OT , social service assistant, respiratory therapy, incentive spirometry * JUAN Sextonl * Regular diet * continue genciclovir and levaquin * Dr Phillips and urology following * medication reviewed as below * symptomatic treatment * await placement * continue PT. Review of Systems - Review of Systems Constitutional: weakness, malaise. negative: fever, chills, sweats, other ENT: negative: Ear Pain, Ear Discharge, Nose Pain, Nose Discharge, Nose Congestion, Mouth Pain, Mouth Swelling, Throat Pain, Throat Swelling, Other Respiratory: negative: Cough, Dry, Shortness of Breath, Hemoptysis, SOB with Excertion, Pleuritic Pain, Sputum, Wheezing Cardiovascular: negative: chest pain, palpitations, orthopnea, paroxysmal nocturnal dyspnea, edema, light headedness, other Gastrointestinal: Nausea, Diarrhea. negative: Vomiting, Abdominal Pain, Constipation, Melena, Hematochezia, Other Genitourinary: negative: Dysuria, Frequency, Incontinence, Hematuria, Retention , Other Musculoskeletal: negative: Neck Pain, Shoulder Pain, Arm Pain, Back Pain, Hand Pain, Leg Pain, Foot Pain, Other Skin: negative: Rash, Lesions, Surya, Bruising, Other - Medications/Allergies Allergies/Adverse Reactions: Allergies Allergy/AdvReac Type Severity Reaction Status Date / Time iron Allergy Severe Rash Verified 08/24/17 22:19 Sulfa (Sulfonamide Allergy Severe Rash Verified 08/24/17 22:19 Antibiotics) magnesium sulfate Allergy Verified 08/29/17 16:23 sulfate Allergy Uncoded 08/29/17 13:06 Medications: Current Medications Acetaminophen (Tylenol) 650 mg PO Q4H PRN PRN Reason: Headache/Fever or Pain Last Admin: 08/31/17 03:44 Dose: 650 mg Hydrocodone Bitart/Acetaminophen ([place] 5/325) 1 tab PO Q4H PRN PRN Reason: Moderate Pain (4-6) Albuterol/Ipratropium (Duoneb) 3 ml NEB [id number] PRN PRN Reason: SOB &/or Wheezing Artificial Tears (Tears Naturale) 0 drop EA EYE PRN PRN PRN Reason: Dry Eyes Calcitriol (Rocaltrol) 0.25 mcg PO MWF [facility] Last Admin: 08/29/17 09:21 Dose: 0.25 mcg Cholecalciferol (Vitamin D3) 5,000 units PO DAILY [facility] Last Admin: 08/31/17 08:39 Dose: 5,000 units Diphenhydramine HCl (Benadryl) 25 mg PO Q6H PRN PRN Reason: Itching & Insomnia Last Admin: 08/29/17 19:51 Dose: 25 mg Guaifenesin (Robitussin Sf) 200 mg PO Q4H PRN PRN Reason: Cough Hydralazine HCl (Apresoline) 10 mg SLOW IVP Q4H PRN PRN Reason: Systolic BP > 180 Hydroxychloroquine Sulfate (Plaquenil) 300 mg PO DAILY [facility] Last Admin: 08/31/17 08:42 Dose: 300 mg Levofloxacin 500 mg/ Device 100 mls @ 100 mls/hr IVPB Q24HR [facility] Last Admin: 08/31/17 08:54 Dose: 100 mls Ganciclovir Sodium 120 mg/ (Sodium Chloride) 252.4 mls @ 252.4 mls/hr IVPB 1800 [facility] Last Admin: 08/30/17 18:18 Dose: 252.4 mls Loperamide HCl (Imodium) 2 mg PO PRN PRN PRN Reason: Diarrhea/Loose Stools Last Admin: 08/30/17 11:19 Dose: 2 mg Metoprolol Succinate (Toprol Xl) 100 mg PO DAILY [facility] Last Admin: 08/31/17 08:41 Dose: 100 mg Mineral Oil/White Petrolatum (Eucerin Cream) 0 gm TOP BIDPRN PRN PRN Reason: Dry Skin Mycophenolate Mofetil (Cellcept) 1,000 mg PO BID [facility] Last Admin: 08/31/17 08:39 Dose: 1,000 mg Nystatin (Mycostatin) 200,000 units SSW DAILY [facility] Last Admin: 08/31/17 08:39 Dose: 200,000 units Ondansetron HCl (Zofran Odt) 4 mg PO Q6H PRN PRN Reason: Nausea/Vomiting Last Admin: 08/29/17 05:53 Dose: 4 mg Ondansetron HCl (Zofran) 4 mg IVP Q6H PRN PRN Reason: Nausea/Vomiting Last Admin: 08/31/17 07:52 Dose: 4 mg Pantoprazole Sodium (Protonix) 40 mg PO DAILY [facility] Last Admin: 08/31/17 08:40 Dose: 40 mg Phenol (Chloraseptic [place] 180 Ml Bot) 0 ml PO PRN PRN PRN Reason: Sore Throat Prednisone (Prednisone) 25 mg PO QAM-WM [facility] Last Admin: 08/31/17 08:41 Dose: 25 mg Sodium Chloride (Flush - Normal Saline) 10 ml IVF Q12HR [facility] Last Admin: 08/30/17 20:15 Dose: 10 ml Sodium Chloride (Flush - Normal Saline) 10 ml IVF PRN PRN PRN Reason: Saline Flush Last Admin: 08/29/17 20:56 Dose: 10 ml
[2017-08-31] MEDS ORDERED: diphenhydrAMINE 25 MG CAP PO PRN ×2 (09:14→09:30)
[2017-08-31 15:09] LABS: Entamoeba histolytica Antigen Negative (Negative)
[2017-08-31] MEDS: SODIUM CHLORIDE 0.9% IVPB SCH (18:20)
[2017-08-31] MEDS: GANCICLOVIR SODIUM IVPB SCH (18:20)
[2017-09-01] MEDS ORDERED: Cipro 250 MG TAB PO SCH ×2 (08:00→20:00)
[2017-09-01] MEDS: predniSONE 5 MG TAB PO SCH (08:46)
[2017-09-01] MEDS: Mycophenolate 250 MG CAP PO SCH ×2 (08:47→21:17)
[2017-09-01] MEDS: Nystatin 500,000 UNITS/5 ML UDCUP SSW SCH (08:48)
[2017-09-01] MEDS: Hydroxychloroquine Sulfate 200 MG TAB PO SCH (09:01)
[2017-09-01] MEDS: Calcitriol 0.25 MCG CAP PO SCH (09:02)
--- NOTE | 2017-09-01 10:14 | PDOC.PN ---
- Subjective Encounter Start Date: 09/01/17 Encounter Start Time: 07:00 pt gets hallucination and confusion, no fever, no diarrhoea - Objective MAR Reviewed: Yes Vital Signs & Weight: Vital Signs (12 hours) Temp Pulse Resp BP BP Pulse Ox 09/01/17 07:00 98.7 F 67 16 133/65 94 L 09/01/17 04:00 98.8 F 71 16 135/65 94 L Weight Admit Weight 90 lb Weight 94 lb 9.6 oz I&O: 08/31/17 09/01/17 09/02/17 06:59 06:59 06:59 Intake Total 425 1200 Output Total 1150 1750 Balance -725 -550 Result Diagrams: 08/30/17 05:40 08/30/17 05:40 Phys Exam - Physical Examination Constitutional: NAD HEENT: PERRLA, moist MMs, sclera anicteric Neck: no JVD, supple Respiratory: no wheezing, no rales, no rhonchi Cardiovascular: RRR, no significant murmur, no rub Gastrointestinal: soft, non-tender, no distention, positive bowel sounds Musculoskeletal: no edema, pulses present Neurological: non-focal, normal sensation Lymphatic: no nodes Psychiatric: normal affect, A&O x 3 Skin: no rash, normal turgor Dx/Plan (1) Acute urinary retention Code(s): R33.8 - OTHER RETENTION OF URINE Status: Acute Comment: with kerr + (2) Emphysematous cystitis Code(s): N30.80 - OTHER CYSTITIS WITHOUT HEMATURIA Status: Acute (3) Normal anion gap metabolic acidosis Code(s): E87.2 - ACIDOSIS Status: Acute Comment: improved (4) Acute worsening of stage 3 chronic kidney disease Code(s): N18.3 - CHRONIC KIDNEY DISEASE, STAGE 3 (MODERATE) Status: Acute (5) Hyponatremia Code(s): E87.1 - HYPO-OSMOLALITY AND HYPONATREMIA Status: Acute (6) Sepsis Code(s): A41.9 - SEPSIS, UNSPECIFIED ORGANISM Status: Acute (7) UTI (urinary tract infection) Status: Acute Comment: due to klebsiela (8) Chronic anemia Code(s): D64.9 - ANEMIA, UNSPECIFIED Status: Chronic (9) GERD (gastroesophageal reflux disease) Code(s): K21.9 - GASTRO-ESOPHAGEAL REFLUX DISEASE WITHOUT ESOPHAGITIS Status: Chronic Qualifiers: Esophagitis presence: esophagitis presence not specified Qualified Code(s) : K21.9 - Gastro-esophageal reflux disease without esophagitis (10) Hyperlipidemia Code(s): E78.5 - HYPERLIPIDEMIA, UNSPECIFIED Status: Chronic Qualifiers: Hyperlipidemia type: unspecified Qualified Code(s): E78.5 - Hyperlipidemia , unspecified (11) Hypertension Code(s): I10 - ESSENTIAL (PRIMARY) HYPERTENSION Status: Chronic Qualifiers: Hypertension type: essential hypertension Qualified Code(s): I10 - Essential (primary) hypertension (12) SLE (systemic lupus erythematosus) Code(s): M32.9 - SYSTEMIC LUPUS ERYTHEMATOSUS, UNSPECIFIED Status: Chronic Qualifiers: Systemic lupus erythematosus type: unspecified (13) Physical deconditioning Code(s): R53.81 - OTHER MALAISE Status: Acute (14) Atelectasis of both lungs Code(s): J98.11 - ATELECTASIS Status: Acute (15) Hypokalemia Code(s): E87.6 - HYPOKALEMIA Status: Acute (16) Hypophosphatemia Code(s): E83.39 - OTHER DISORDERS OF PHOSPHORUS METABOLISM Status: Acute (17) Hypomagnesemia Code(s): E83.42 - HYPOMAGNESEMIA Status: Acute (18) Acute respiratory failure with hypoxia Code(s): J96.01 - ACUTE RESPIRATORY FAILURE WITH HYPOXIA Status: Acute (19) Colitis, CMV Code(s): A08.39 - OTHER VIRAL ENTERITIS; B25.9 - CYTOMEGALOVIRAL DISEASE, UNSPECIFIED Status: Acute (20) Esophagitis, CMV Code(s): K20.8 - OTHER ESOPHAGITIS; B25.8 - OTHER CYTOMEGALOVIRAL DISEASES Status: Acute (21) Delirium Code(s): R41.0 - DISORIENTATION, UNSPECIFIED Status: Resolved Comment: multifectorial - Plan cont current plan of care, plan discussed w/ family, continue antibiotics, PT/OT , social work faculty member * dr chavarria to decide about gencyclovir duration and mode of administration, if parentral then she will, need picc line * kerr catheter will defer to urology * will change levaquin to oral cipro * await placement * medication reviewed as below * symptomatic treatment. Review of Systems - Review of Systems ENT: negative: Ear Pain, Ear Discharge, Nose Pain, Nose Discharge, Nose Congestion, Mouth Pain, Mouth Swelling, Throat Pain, Throat Swelling, Other Respiratory: negative: Cough, Dry, Shortness of Breath, Hemoptysis, SOB with Excertion, Pleuritic Pain, Sputum, Wheezing Cardiovascular: negative: chest pain, palpitations, orthopnea, paroxysmal nocturnal dyspnea, edema, light headedness, other Gastrointestinal: negative: Nausea, Vomiting, Abdominal Pain, Diarrhea, Constipation, Melena, Hematochezia, Other Genitourinary: negative: Dysuria, Frequency, Incontinence, Hematuria, Retention , Other Musculoskeletal: negative: Neck Pain, Shoulder Pain, Arm Pain, Back Pain, Hand Pain, Leg Pain, Foot Pain, Other Skin: negative: Rash, Lesions, Surya, Bruising, Other Neurological: Confusion. negative: Weakness, Numbness, Incoordination, Change in Speech, Seizures, Other - Medications/Allergies Allergies/Adverse Reactions: Allergies Allergy/AdvReac Type Severity Reaction Status Date / Time iron Allergy Severe Rash Verified 08/24/17 22:19 Sulfa (Sulfonamide Allergy Severe Rash Verified 08/24/17 22:19 Antibiotics) magnesium sulfate Allergy Verified 08/29/17 16:23 sulfate Allergy Uncoded 08/29/17 13:06 Medications: Current Medications Acetaminophen (Tylenol) 650 mg PO Q4H PRN PRN Reason: Headache/Fever or Pain Last Admin: 08/31/17 03:44 Dose: 650 mg Hydrocodone Bitart/Acetaminophen ([place] 5/325) 1 tab PO Q4H PRN PRN Reason: Moderate Pain (4-6) Albuterol/Ipratropium (Duoneb) 3 ml NEB [id number] PRN PRN Reason: SOB &/or Wheezing Artificial Tears (Tears Naturale) 0 drop EA EYE PRN PRN PRN Reason: Dry Eyes Calcitriol (Rocaltrol) 0.25 mcg PO MWF [facility] Last Admin: 09/01/17 09:02 Dose: 0.25 mcg Cholecalciferol (Vitamin D3) 5,000 units PO DAILY [facility] Last Admin: 09/01/17 08:47 Dose: 5,000 units Ciprofloxacin (Cipro) 250 mg PO 0800 [facility] Stop: 09/01/17 11:00 Last Admin: 09/01/17 08:55 Dose: 250 mg Diphenhydramine HCl (Benadryl) 25 mg PO Q6H PRN PRN Reason: Itching & Insomnia Guaifenesin (Robitussin Sf) 200 mg PO Q4H PRN PRN Reason: Cough Hydralazine HCl (Apresoline) 10 mg SLOW IVP Q4H PRN PRN Reason: Systolic BP > 180 Hydroxychloroquine Sulfate (Plaquenil) 300 mg PO DAILY [facility] Last Admin: 09/01/17 09:01 Dose: 300 mg Ganciclovir Sodium 120 mg/ (Sodium Chloride) 252.4 mls @ 252.4 mls/hr IVPB 1800 [facility] Last Admin: 08/31/17 18:20 Dose: 252.4 mls Loperamide HCl (Imodium) 2 mg PO PRN PRN PRN Reason: Diarrhea/Loose Stools Last Admin: 08/30/17 11:19 Dose: 2 mg Metoprolol Succinate (Toprol Xl) 100 mg PO DAILY [facility] Last Admin: 09/01/17 08:47 Dose: 100 mg Mineral Oil/White Petrolatum (Eucerin Cream) 0 gm TOP BIDPRN PRN PRN Reason: Dry Skin Mycophenolate Mofetil (Cellcept) 1,000 mg PO BID [facility] Last Admin: 09/01/17 08:47 Dose: 1,000 mg Nystatin (Mycostatin) 200,000 units SSW DAILY [facility] Last Admin: 09/01/17 08:48 Dose: 200,000 units Ondansetron HCl (Zofran Odt) 4 mg PO Q6H PRN PRN Reason: Nausea/Vomiting Last Admin: 08/29/17 05:53 Dose: 4 mg Ondansetron HCl (Zofran) 4 mg IVP Q6H PRN PRN Reason: Nausea/Vomiting Last Admin: 08/31/17 07:52 Dose: 4 mg Pantoprazole Sodium (Protonix) 40 mg PO DAILY [facility] Last Admin: 09/01/17 08:47 Dose: 40 mg Phenol (Chloraseptic [place] 180 Ml Bot) 0 ml PO PRN PRN PRN Reason: Sore Throat Prednisone (Prednisone) 25 mg PO QAM[facility] Last Admin: 09/01/17 08:46 Dose: 25 mg Sodium Chloride (Flush - Normal Saline) 10 ml IVF Q12HR [facility] Last Admin: 09/01/17 08:56 Dose: 10 ml Sodium Chloride (Flush - Normal Saline) 10 ml IVF PRN PRN PRN Reason: Saline Flush Last Admin: 08/29/17 20:56 Dose: 10 ml
[2017-09-01 11:28] VITALS: BMI 19.1
[2017-09-01] MEDS: Ondansetron HCl/PF 4 MG/2 ML Vial IVP PRN (12:14)
--- NOTE | 2017-09-01 13:46 | PRG ---
DATE OF SERVICE: 09/01/2017 SUBJECTIVE: Ms. Burnett was able to advance her diet over the weekend. She has been tolerating reg ular diet for the past day. She has some mild nausea, but no vomiting. Her diarrhea seems to have s lowed down. She had one normal solid bowel movement this morning. She is not having any abdominal p ain. She has been having some delirium over the weekend. OBJECTIVE: VITAL SIGNS: Temperature 98.3, pulse 67, blood pressure 141/70, 100% oxygen saturation on 3.5 liters nasal cannula. GENERAL: No acute distress. HEART: Regular rate and rhythm. LUNGS: Clear to auscultation bilaterally. ABDOMEN: Soft, nontender to palpation. EXTREMITIES: No peripheral edema. LABORATORY STUDIES: Histoplasma antigen was negative, entamoeba histolytica antigen was negative. Q uantiferon was indeterminate. ASSESSMENT AND PLAN: 1. Cytomegalovirus colitis. 2. Cytomegalovirus esophagitis. 3. Diarrhea, secondary to cytomegalovirus colitis, improved. The patient does seem to be having some clinical improvement in her gastrointestinal symptoms with CM V treatment. Continue CMV treatment, duration to be determined by Infectious Disease. There will no t be any need for repeat endoscopy as long as the patient's symptoms continue to improve. GI will sign off at this time, but please call back any time with questions or concerns.
[2017-09-01] MEDS: GANCICLOVIR SODIUM IVPB SCH (18:18)
[2017-09-01] MEDS: SODIUM CHLORIDE 0.9% IVPB SCH (18:18)
[2017-09-02] MEDS ORDERED: Temazepam 15 MG CAP PO PRN (06:32)
[2017-09-02 07:51] LABS: ALT (SGPT) 7 U/L (8-55); AST (SGOT) 15 U/L (5-34); Albumin 2.2 g/dL (3.4-4.8); Alkaline Phosphatase 74 U/L (40-150); Anion Gap 7 mmol/L (10-20); BUN (Urea Nitrogen) 15 mg/dL (9.8-20.1); Bilirubin, Total 0.5 mg/dL (0.2-1.2); CRP (Inflammatory) 1.39 mg/dL (= or < 0.5); Calc. Creatinine Clearance 36 mL/min (70-130); Calcium 7.4 mg/dL (7.8-10.44); Carbon Dioxide 27 mmol/L (23-31); Chloride 100 mmol/L (98-107); Estimated GFR-MDRD 55; Globulin 1.6 g/dL (2.4-3.5); Glucose 88 mg/dL (80-115); Lipase 349 U/L (8-78); Protein, Total 3.8 g/dL (6.0-8.3); Sodium 131 mmol/L (136-145)
[2017-09-02 07:59] LABS: #Lymphocytes 0.9 thou/uL (1.20-3.40); #Monocytes 0.3 thou/uL (0.11-0.59); #Neutrophils 6.4 thou/uL (1.40-6.50); %Eosinophils 0.4 % (0.0-10.0); %Lymphocytes 12.3 % (21.0-51.0); %Neutrophils 83.4 % (42.0-75.0); Hemoglobin 8.5 g/dL (12.0-16.0); Mean Corpuscular HGB CONC 31.3 g/dL (32.0-36.0); Mean Corpuscular Hemoglobin 29.7 pg (27.0-31.0); Mean Platelet Volume 12.7 fL (7.4-10.4); Platelet Count 129 thou/uL (130-400); RBC Distribution Width 15.5 % (11.5-14.5); Red Blood Cell (RBC) Count 2.87 mill/uL (4.20-5.40); White Blood Cell (WBC) Count 7.7 thou/uL (4.8-10.8)
[2017-09-02 08:07] LABS: Potassium 2.7 mmol/L (3.5-5.1)
[2017-09-02] MEDS: Ondansetron HCl/PF 4 MG/2 ML Vial IVP PRN (08:25)
[2017-09-02] MEDS: Acetaminophen 325 MG TAB PO PRN ×2 (08:25→21:25)
[2017-09-02] MEDS: predniSONE 5 MG TAB PO SCH (08:53)
[2017-09-02] MEDS: Loperamide HCl 2 MG CAP PO PRN ×2 (08:53→21:26)
[2017-09-02] MEDS ORDERED: Potassium Chloride 20 MEQ/100 ML PREMIX BAG IVPB SCH (09:15)
[2017-09-02] MEDS: Hydroxychloroquine Sulfate 200 MG TAB PO SCH (10:06)
--- NOTE | 2017-09-02 10:12 | PDOC.PN ---
- Subjective Encounter Start Date: 09/02/17 Encounter Start Time: 07:00 pt has diarrhoea today, no fever, weak, - Objective MAR Reviewed: Yes Vital Signs & Weight: Vital Signs (12 hours) Temp Pulse Resp BP Pulse Ox 09/02/17 08:00 99.3 F 66 18 149/72 H 96 09/02/17 04:00 99.3 F 67 12 140/71 93 L Weight Admit Weight 90 lb Weight 94 lb 9.6 oz I&O: 09/01/17 09/02/17 09/03/17 06:59 06:59 06:59 Intake Total 1200 650 Output Total 1750 1300 Balance -550 -650 Result Diagrams: 09/02/17 06:56 09/02/17 06:56 Phys Exam - Physical Examination Constitutional: NAD HEENT: PERRLA, moist MMs, sclera anicteric Neck: no JVD, supple Respiratory: no wheezing, no rales, no rhonchi Cardiovascular: RRR, no significant murmur, no rub Gastrointestinal: soft, non-tender, no distention, positive bowel sounds Musculoskeletal: no edema, pulses present Neurological: non-focal, normal sensation, moves all 4 limbs Lymphatic: no nodes Psychiatric: normal affect Skin: no rash, normal turgor Dx/Plan (1) Acute urinary retention Code(s): R33.8 - OTHER RETENTION OF URINE Status: Acute Comment: with kerr + (2) Emphysematous cystitis Code(s): N30.80 - OTHER CYSTITIS WITHOUT HEMATURIA Status: Acute (3) Normal anion gap metabolic acidosis Code(s): E87.2 - ACIDOSIS Status: Acute Comment: improved (4) Acute worsening of stage 3 chronic kidney disease Code(s): N18.3 - CHRONIC KIDNEY DISEASE, STAGE 3 (MODERATE) Status: Acute (5) Hyponatremia Code(s): E87.1 - HYPO-OSMOLALITY AND HYPONATREMIA Status: Acute (6) Sepsis Code(s): A41.9 - SEPSIS, UNSPECIFIED ORGANISM Status: Acute (7) UTI (urinary tract infection) Status: Acute Comment: due to klebsiela (8) Chronic anemia Code(s): D64.9 - ANEMIA, UNSPECIFIED Status: Chronic (9) GERD (gastroesophageal reflux disease) Code(s): K21.9 - GASTRO-ESOPHAGEAL REFLUX DISEASE WITHOUT ESOPHAGITIS Status: Chronic Qualifiers: Esophagitis presence: esophagitis presence not specified Qualified Code(s) : K21.9 - Gastro-esophageal reflux disease without esophagitis (10) Hyperlipidemia Code(s): E78.5 - HYPERLIPIDEMIA, UNSPECIFIED Status: Chronic Qualifiers: Hyperlipidemia type: unspecified Qualified Code(s): E78.5 - Hyperlipidemia , unspecified (11) Hypertension Code(s): I10 - ESSENTIAL (PRIMARY) HYPERTENSION Status: Chronic Qualifiers: Hypertension type: essential hypertension Qualified Code(s): I10 - Essential (primary) hypertension (12) SLE (systemic lupus erythematosus) Code(s): M32.9 - SYSTEMIC LUPUS ERYTHEMATOSUS, UNSPECIFIED Status: Chronic Qualifiers: Systemic lupus erythematosus type: unspecified (13) Physical deconditioning Code(s): R53.81 - OTHER MALAISE Status: Acute (14) Atelectasis of both lungs Code(s): J98.11 - ATELECTASIS Status: Acute (15) Hypokalemia Code(s): E87.6 - HYPOKALEMIA Status: Acute (16) Hypophosphatemia Code(s): E83.39 - OTHER DISORDERS OF PHOSPHORUS METABOLISM Status: Acute (17) Hypomagnesemia Code(s): E83.42 - HYPOMAGNESEMIA Status: Acute (18) Acute respiratory failure with hypoxia Code(s): J96.01 - ACUTE RESPIRATORY FAILURE WITH HYPOXIA Status: Acute (19) Colitis, CMV Code(s): A08.39 - OTHER VIRAL ENTERITIS; B25.9 - CYTOMEGALOVIRAL DISEASE, UNSPECIFIED Status: Acute (20) Esophagitis, CMV Code(s): K20.8 - OTHER ESOPHAGITIS; B25.8 - OTHER CYTOMEGALOVIRAL DISEASES Status: Acute (21) Delirium Code(s): R41.0 - DISORIENTATION, UNSPECIFIED Status: Resolved Comment: multifectorial - Plan cont current plan of care * replace potassium chloride 20 meq IV * continue genciclovir * continue oral cipro * medication reviewed as below * symptomatic treatment * discussed with family * consult dietary * await placement * dr chavarria to see today. Review of Systems - Review of Systems Constitutional: weakness. negative: fever, chills, sweats, malaise, other Eyes: negative: Pain, Vision Change, Conjunctivae Inflammation, Eyelid Inflammation, Redness, Other ENT: negative: Ear Pain, Ear Discharge, Nose Pain, Nose Discharge, Nose Congestion, Mouth Pain, Mouth Swelling, Throat Pain, Throat Swelling, Other Cardiovascular: negative: chest pain, palpitations, orthopnea, paroxysmal nocturnal dyspnea, edema, light headedness, other Gastrointestinal: Diarrhea. negative: Nausea, Vomiting, Abdominal Pain, Constipation, Melena, Hematochezia, Other Genitourinary: negative: Dysuria, Frequency, Incontinence, Hematuria, Retention , Other Musculoskeletal: negative: Neck Pain, Shoulder Pain, Arm Pain, Back Pain, Hand Pain, Leg Pain, Foot Pain, Other Skin: negative: Rash, Lesions, Surya, Bruising, Other - Medications/Allergies Allergies/Adverse Reactions: Allergies Allergy/AdvReac Type Severity Reaction Status Date / Time iron Allergy Severe Rash Verified 08/24/17 22:19 Sulfa (Sulfonamide Allergy Severe Rash Verified 08/24/17 22:19 Antibiotics) magnesium sulfate Allergy Verified 08/29/17 16:23 sulfate Allergy Uncoded 08/29/17 13:06 Medications: Current Medications Acetaminophen (Tylenol) 650 mg PO Q4H PRN PRN Reason: Headache/Fever or Pain Last Admin: 09/02/17 08:25 Dose: 650 mg Hydrocodone Bitart/Acetaminophen ([place] 5/325) 1 tab PO Q4H PRN PRN Reason: Moderate Pain (4-6) Albuterol/Ipratropium (Duoneb) 3 ml NEB Q9CA-XP PRN PRN Reason: SOB &/or Wheezing Artificial Tears (Tears Naturale) 0 drop EA EYE PRN PRN PRN Reason: Dry Eyes Calcitriol (Rocaltrol) 0.25 mcg PO [facility]WF [facility] Last Admin: 09/01/17 09:02 Dose: 0.25 mcg Cholecalciferol (Vitamin D3) 5,000 units PO DAILY [facility] Last Admin: 09/01/17 08:47 Dose: 5,000 units Diphenhydramine HCl (Benadryl) 25 mg PO Q6H PRN PRN Reason: Itching & Insomnia Guaifenesin (Robitussin Sf) 200 mg PO Q4H PRN PRN Reason: Cough Hydralazine HCl (Apresoline) 10 mg SLOW IVP Q4H PRN PRN Reason: Systolic BP > 180 Hydroxychloroquine Sulfate (Plaquenil) 300 mg PO DAILY [facility] Last Admin: 09/02/17 10:06 Dose: 300 mg Ganciclovir Sodium 120 mg/ (Sodium Chloride) 252.4 mls @ 252.4 mls/hr IVPB 1800 [facility] Last Admin: 09/01/17 18:18 Dose: 252.4 mls Loperamide HCl (Imodium) 2 mg PO PRN PRN PRN Reason: Diarrhea/Loose Stools Last Admin: 09/02/17 08:53 Dose: 2 mg Metoprolol Succinate (Toprol Xl) 100 mg PO DAILY [facility] Last Admin: 09/02/17 10:08 Dose: 100 mg Mineral Oil/White Petrolatum (Eucerin Cream) 0 gm TOP BIDPRN PRN PRN Reason: Dry Skin Mycophenolate Mofetil (Cellcept) 1,000 mg PO BID [facility] Last Admin: 09/01/17 21:17 Dose: 1,000 mg Nystatin (Mycostatin) 200,000 units SSW [facility] Last Admin: 09/01/17 08:48 Dose: 200,000 units Ondansetron HCl (Zofran Odt) 4 mg PO Q6H PRN PRN Reason: Nausea/Vomiting Last Admin: 08/29/17 05:53 Dose: 4 mg Ondansetron HCl (Zofran) 4 mg IVP Q6H PRN PRN Reason: Nausea/Vomiting Last Admin: 09/02/17 08:25 Dose: 4 mg Pantoprazole Sodium (Protonix) 40 mg PO DAILY [facility] Last Admin: 09/01/17 08:47 Dose: 40 mg Phenol (Chloraseptic [place] 180 Ml Bot) 0 ml PO PRN PRN PRN Reason: Sore Throat Potassium Chloride (Kcl) 20 meq IVPB [facility] Stop: 09/02/17 12:00 Last Admin: 09/02/17 10:00 Dose: 20 meq Prednisone (Prednisone) 25 mg PO QAM[facility] Last Admin: 09/02/17 08:53 Dose: 25 mg Sodium Chloride (Flush - Normal Saline) 10 ml IVF Q12HR [facility] Last Admin: 09/01/17 20:57 Dose: 10 ml Sodium Chloride (Flush - Normal Saline) 10 ml IVF PRN PRN PRN Reason: Saline Flush Last Admin: 08/29/17 20:56 Dose: 10 ml Temazepam (Restoril) 15 mg PO HSPRN PRN PRN Reason: Insomnia
[2017-09-02] MEDS: Mycophenolate 250 MG CAP PO SCH ×2 (10:20→21:26)
[2017-09-02] MEDS: Nystatin 500,000 UNITS/5 ML UDCUP SSW SCH (10:21)
--- NOTE | 2017-09-02 11:50 | PQF ---
CLINICAL DOCUMENTATION IMPROVEMENT CLARIFICATION FORM: ICD-10 Updated PLEASE DO AN ADDENDUM TO THE PROGRESS NOTE WITH ANY DOCUMENTATION UPDATES OR ADDITIONS AND CARRY THROUGH TO DC SUMMARY. THANK YOU. DATE: 09/02/17 ATTN: Dr. New Please exercise your independent, professional judgment in responding to the clarification form. Clinical indicators are provided on the bottom of this form for your review Please check appropriate box(s): ___x____ I (concur) with the Wound Care findings as stated below. [ ] Pressure Ulcer: (Stage I: Erythema; Stage II: Partial thickness; Stage III : Full thickness; Stage IV: Necrosis to muscle/bone) [ ] Location: Stage (I to IV): (Left Right Bilateral___ __ N/A ) [ ] Location: Stage (I to IV): (Left Right Bilateral___ __ N/A ) [ ] No pressure ulcer diagnosis [ ] Deep tissue injury [ ] Other diagnosis [ ] Unable to determine In addition, please specify: Present on Admission (POA): [ x] Yes [ ] No [ ] Unable to determine For continuity of documentation, please document condition throughout progress notes and discharge summary. Thank You. CLINICAL INDICATORS - SIGNS / SYMPTOMS / LABS WOUND CARE ASSESSMENT: 08/26/17 @ 0915: SACRUM PRESSURE ULCER. STAGE III. RISKS: H&P: UTI. SYSTEMIC LUPUS ERYTHEMATOSUS/ RHEUMATOID ARTHRITIS; SEVERE PROTEIN-CALORIE MALNUTRITION TREATMENT: ORDER 08/25: CONSULT: WOUND CARE EVAL FOR STAGE III X2 TO SACRUM. Pre-ulcer skin changes limited to persistent focal edema (Stage 1) Abrasion, blister, partial thickness skin loss involving epidermis and/or dermis (Stage 2) Full thickness skin loss involving damage or necrosis of SQ tissue. (Stage 3) Necrosis of soft tissue through to underlying muscle, tendon, or bone. (Stage 4) Purple or maroon discolored skin or blood filled blister Thank you, Ayse (This form is maintained as a part of the permanent medical record) 2015 [employer] All Rights Reserved Ayse Patel RN, BSN [email or web address] Office: [phone] [facility]
[2017-09-02] MEDS ORDERED: [UNRECOGNIZED DRUG - REMARK] FS SCH (15:30)
[2017-09-02] MEDS ORDERED: Potassium Chloride 20 MEQ TAB PO SCH ×2 (16:30→22:30)
[2017-09-02] MEDS: GANCICLOVIR SODIUM IVPB SCH (21:26)
[2017-09-02] MEDS: SODIUM CHLORIDE 0.9% IVPB SCH (21:26)
[2017-09-02] MEDS: Ciprofloxacin 500 MG TAB PO SCH (21:26)
[2017-09-03] MEDS: Ciprofloxacin 500 MG TAB PO SCH ×2 (06:43→21:32)
[2017-09-03] MEDS: predniSONE 5 MG TAB PO SCH (09:30)
[2017-09-03] MEDS: Mycophenolate 250 MG CAP PO SCH ×2 (09:30→21:32)
[2017-09-03] MEDS: Calcitriol 0.25 MCG CAP PO SCH (09:31)
[2017-09-03] MEDS: Hydroxychloroquine Sulfate 200 MG TAB PO SCH (09:31)
[2017-09-03] MEDS: Nystatin 500,000 UNITS/5 ML UDCUP SSW SCH (09:31)
--- NOTE | 2017-09-03 10:42 | PDOC.PN ---
- Subjective Encounter Start Date: 09/03/17 Encounter Start Time: 07:00 after imodium diarrhoea stopped but feels discomfort in stomach and reduces apatite, no fever, today has high blood pressure - Objective MAR Reviewed: Yes Vital Signs & Weight: Vital Signs (12 hours) Temp Pulse Resp BP Pulse Ox 09/03/17 07:15 98.1 F 60 18 162/76 H 94 L 09/03/17 04:00 97 Weight Admit Weight 90 lb Weight 94 lb 9.6 oz I&O: 09/02/17 09/03/17 09/04/17 06:59 06:59 06:59 Intake Total 650 1260 Output Total 1300 950 Balance -650 310 Result Diagrams: 09/02/17 06:56 09/02/17 06:56 Phys Exam - Physical Examination Constitutional: NAD HEENT: PERRLA, moist MMs, sclera anicteric Neck: no JVD, supple Respiratory: no wheezing, no rales, no rhonchi Cardiovascular: RRR, no significant murmur, no rub Gastrointestinal: soft, non-tender, no distention, positive bowel sounds Musculoskeletal: no edema, pulses present Neurological: non-focal, normal sensation Lymphatic: no nodes Psychiatric: normal affect Skin: no rash, normal turgor Dx/Plan (1) Acute urinary retention Code(s): R33.8 - OTHER RETENTION OF URINE Status: Acute Comment: with kerr + (2) Emphysematous cystitis Code(s): N30.80 - OTHER CYSTITIS WITHOUT HEMATURIA Status: Acute (3) Normal anion gap metabolic acidosis Code(s): E87.2 - ACIDOSIS Status: Acute Comment: improved (4) Acute worsening of stage 3 chronic kidney disease Code(s): N18.3 - CHRONIC KIDNEY DISEASE, STAGE 3 (MODERATE) Status: Acute (5) Hyponatremia Code(s): E87.1 - HYPO-OSMOLALITY AND HYPONATREMIA Status: Acute (6) Sepsis Code(s): A41.9 - SEPSIS, UNSPECIFIED ORGANISM Status: Acute (7) UTI (urinary tract infection) Status: Acute Comment: due to klebsiela (8) Chronic anemia Code(s): D64.9 - ANEMIA, UNSPECIFIED Status: Chronic (9) GERD (gastroesophageal reflux disease) Code(s): K21.9 - GASTRO-ESOPHAGEAL REFLUX DISEASE WITHOUT ESOPHAGITIS Status: Chronic Qualifiers: Esophagitis presence: esophagitis presence not specified Qualified Code(s) : K21.9 - Gastro-esophageal reflux disease without esophagitis (10) Hyperlipidemia Code(s): E78.5 - HYPERLIPIDEMIA, UNSPECIFIED Status: Chronic Qualifiers: Hyperlipidemia type: unspecified Qualified Code(s): E78.5 - Hyperlipidemia , unspecified (11) Hypertension Code(s): I10 - ESSENTIAL (PRIMARY) HYPERTENSION Status: Chronic Qualifiers: Hypertension type: essential hypertension Qualified Code(s): I10 - Essential (primary) hypertension (12) SLE (systemic lupus erythematosus) Code(s): M32.9 - SYSTEMIC LUPUS ERYTHEMATOSUS, UNSPECIFIED Status: Chronic Qualifiers: Systemic lupus erythematosus type: unspecified (13) Physical deconditioning Code(s): R53.81 - OTHER MALAISE Status: Acute (14) Atelectasis of both lungs Code(s): J98.11 - ATELECTASIS Status: Acute (15) Hypokalemia Code(s): E87.6 - HYPOKALEMIA Status: Acute (16) Hypophosphatemia Code(s): E83.39 - OTHER DISORDERS OF PHOSPHORUS METABOLISM Status: Acute (17) Hypomagnesemia Code(s): E83.42 - HYPOMAGNESEMIA Status: Acute (18) Acute respiratory failure with hypoxia Code(s): J96.01 - ACUTE RESPIRATORY FAILURE WITH HYPOXIA Status: Acute (19) Colitis, CMV Code(s): A08.39 - OTHER VIRAL ENTERITIS; B25.9 - CYTOMEGALOVIRAL DISEASE, UNSPECIFIED Status: Acute (20) Esophagitis, CMV Code(s): K20.8 - OTHER ESOPHAGITIS; B25.8 - OTHER CYTOMEGALOVIRAL DISEASES Status: Acute (21) Delirium Code(s): R41.0 - DISORIENTATION, UNSPECIFIED Status: Resolved Comment: multifectorial - Plan cont current plan of care, plan discussed w/ family, 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 Review of Systems - Review of Systems Constitutional: weakness. negative: fever, chills, sweats, malaise, other ENT: negative: Ear Pain, Ear Discharge, Nose Pain, Nose Discharge, Nose Congestion, Mouth Pain, Mouth Swelling, Throat Pain, Throat Swelling, Other Respiratory: negative: Cough, Dry, Shortness of Breath, Hemoptysis, SOB with Excertion, Pleuritic Pain, Sputum, Wheezing Cardiovascular: negative: chest pain, palpitations, orthopnea, paroxysmal nocturnal dyspnea, edema, light headedness, other Gastrointestinal: negative: Nausea, Vomiting, Abdominal Pain, Diarrhea, Constipation, Melena, Hematochezia, Other Genitourinary: negative: Dysuria, Frequency, Incontinence, Hematuria, Retention , Other Musculoskeletal: negative: Neck Pain, Shoulder Pain, Arm Pain, Back Pain, Hand Pain, Leg Pain, Foot Pain, Other Skin: negative: Rash, Lesions, Surya, Bruising, Other - Medications/Allergies Allergies/Adverse Reactions: Allergies Allergy/AdvReac Type Severity Reaction Status Date / Time iron Allergy Severe Rash Verified 08/24/17 22:19 Sulfa (Sulfonamide Allergy Severe Rash Verified 08/24/17 22:19 Antibiotics) magnesium sulfate Allergy Verified 08/29/17 16:23 sulfate Allergy Uncoded 08/29/17 13:06 Medications: Current Medications Acetaminophen (Tylenol) 650 mg PO Q4H PRN PRN Reason: Headache/Fever or Pain Last Admin: 09/02/17 21:25 Dose: 650 mg Hydrocodone Bitart/Acetaminophen ([place] 5/325) 1 tab PO Q4H PRN PRN Reason: Moderate Pain (4-6) Albuterol/Ipratropium (Duoneb) 3 ml NEB [id number] PRN PRN Reason: SOB &/or Wheezing Artificial Tears (Tears Naturale) 0 drop EA EYE PRN PRN PRN Reason: Dry Eyes Calcitriol (Rocaltrol) 0.25 mcg PO MWF [facility] Last Admin: 09/03/17 09:31 Dose: 0.25 mcg Cholecalciferol (Vitamin D3) 5,000 units PO DAILY [facility] Last Admin: 09/03/17 09:29 Dose: 5,000 units Ciprofloxacin (Cipro) 500 mg PO 0600,1999 [facility] Last Admin: 09/03/17 06:43 Dose: 500 mg Diphenhydramine HCl (Benadryl) 25 mg PO Q6H PRN PRN Reason: Itching & Insomnia Guaifenesin (Robitussin Sf) 200 mg PO Q4H PRN PRN Reason: Cough Hydralazine HCl (Apresoline) 10 mg SLOW IVP Q4H PRN PRN Reason: Systolic BP > 180 Hydroxychloroquine Sulfate (Plaquenil) 300 mg PO DAILY [facility] Last Admin: 09/03/17 09:31 Dose: 300 mg Ganciclovir Sodium 120 mg/ (Sodium Chloride) 252.4 mls @ 252.4 mls/hr IVPB 1800 [facility] Last Admin: 09/02/17 21:26 Dose: 252.4 mls Loperamide HCl (Imodium) 2 mg PO PRN PRN PRN Reason: Diarrhea/Loose Stools Last Admin: 09/02/17 21:26 Dose: 2 mg Metoprolol Succinate (Toprol Xl) 100 mg PO DAILY [facility] Last Admin: 09/03/17 09:45 Dose: 100 mg Mineral Oil/White Petrolatum (Eucerin Cream) 0 gm TOP BIDPRN PRN PRN Reason: Dry Skin Mycophenolate Mofetil (Cellcept) 1,000 mg PO BID [facility] Last Admin: 09/03/17 09:30 Dose: 1,000 mg Nystatin (Mycostatin) 200,000 units SSW DAILY [facility] Last Admin: 09/03/17 09:31 Dose: 200,000 units Ondansetron HCl (Zofran Odt) 4 mg PO Q6H PRN PRN Reason: Nausea/Vomiting Last Admin: 18 05:53 Dose: 4 mg Ondansetron HCl (Zofran) 4 mg IVP Q6H PRN PRN Reason: Nausea/Vomiting Last Admin: 09/02/17 08:25 Dose: 4 mg Pantoprazole Sodium (Protonix) 40 mg PO DAILY [facility] Last Admin: 09/03/17 09:30 Dose: 40 mg Phenol (Chloraseptic [place] 180 Ml Bot) 0 ml PO PRN PRN PRN Reason: Sore Throat Prednisone (Prednisone) 25 mg PO QA-[facility] Last Admin: 09/03/17 09:30 Dose: 25 mg Sodium Chloride (Flush - Normal Saline) 10 ml IVF Q12HR [facility] Last Admin: 09/03/17 09:49 Dose: 10 ml Sodium Chloride (Flush - Normal Saline) 10 ml IVF PRN PRN PRN Reason: Saline Flush Last Admin: 08/29/17 20:56 Dose: 10 ml Temazepam (Restoril) 15 mg PO HSPRN PRN PRN Reason: Insomnia
[2017-09-03 10:45] LABS: ALT (SGPT) Less than 7 U/L (8-55); AST (SGOT) 13 U/L (5-34); Albumin 2.4 g/dL (3.4-4.8); Alkaline Phosphatase 75 U/L (40-150); Anion Gap 9 mmol/L (10-20); BUN (Urea Nitrogen) 19 mg/dL (9.8-20.1); Bilirubin, Total 0.5 mg/dL (0.2-1.2); Calc. Creatinine Clearance 40 mL/min (70-130); Calcium 7.6 mg/dL (7.8-10.44); Carbon Dioxide 24 mmol/L (23-31); Chloride 102 mmol/L (98-107); Estimated GFR-MDRD 61; Globulin 1.6 g/dL (2.4-3.5); Glucose 92 mg/dL (80-115); Magnesium 1.5 mg/dL (1.6-2.6); Potassium 3.1 mmol/L (3.5-5.1); Sodium 132 mmol/L (136-145)
[2017-09-03] MEDS: Acetaminophen 325 MG TAB PO PRN (16:03)
[2017-09-03] MEDS ORDERED: Potassium Chloride 20 MEQ TAB PO SCH (16:45)
[2017-09-03] MEDS: SODIUM CHLORIDE 0.9% IVPB SCH (17:54)
[2017-09-03] MEDS: GANCICLOVIR SODIUM IVPB SCH (17:54)
[2017-09-04] MEDS: Ciprofloxacin 500 MG TAB PO SCH ×2 (07:12→20:24)
[2017-09-04] MEDS: Acetaminophen 325 MG TAB PO PRN ×2 (07:22→20:38)
[2017-09-04] MEDS: Nystatin 500,000 UNITS/5 ML UDCUP SSW SCH (08:42)
[2017-09-04] MEDS: Hydroxychloroquine Sulfate 200 MG TAB PO SCH (08:45)
[2017-09-04] MEDS: predniSONE 5 MG TAB PO SCH (08:45)
[2017-09-04] MEDS: Mycophenolate 250 MG CAP PO SCH ×2 (08:46→20:24)
[2017-09-04] MEDS: Loperamide HCl 2 MG CAP PO PRN (09:06)
[2017-09-04] MEDS: Ondansetron ODT 4 MG TAB PO PRN ×2 (09:06→16:09)
--- NOTE | 2017-09-04 09:34 | PDOC.PN ---
- Subjective Encounter Start Date: 09/04/17 Encounter Start Time: 07:00 Patient seen and examined. No new complaints. No overnight events she has on and off diarrhoea, has poor apatite, feels weak - Objective MAR Reviewed: Yes Vital Signs & Weight: Vital Signs (12 hours) Temp Pulse Resp BP Pulse Ox 09/04/17 07:10 98.3 F 65 20 149/70 H 93 L 09/03/17 23:38 95 Weight Admit Weight 90 lb Weight 94 lb 9.6 oz I&O: 09/03/17 09/04/17 09/05/17 06:59 06:59 06:59 Intake Total 1260 1270 Output Total 950 800 Balance 310 470 Result Diagrams: 09/02/17 06:56 09/03/17 10:16 Phys Exam - Physical Examination Constitutional: NAD HEENT: PERRLA, moist MMs, sclera anicteric Neck: no JVD, supple Respiratory: no wheezing, no rales, no rhonchi Cardiovascular: RRR, no significant murmur, no rub Gastrointestinal: soft, non-tender, no distention, positive bowel sounds Musculoskeletal: no edema, pulses present Neurological: non-focal, normal sensation, moves all 4 limbs Lymphatic: no nodes Psychiatric: normal affect, A&O x 3 Skin: no rash, normal turgor Dx/Plan (1) Acute urinary retention Code(s): R33.8 - OTHER RETENTION OF URINE Status: Acute Comment: with kerr + (2) Emphysematous cystitis Code(s): N30.80 - OTHER CYSTITIS WITHOUT HEMATURIA Status: Acute (3) Normal anion gap metabolic acidosis Code(s): E87.2 - ACIDOSIS Status: Acute Comment: improved (4) Acute worsening of stage 3 chronic kidney disease Code(s): N18.3 - CHRONIC KIDNEY DISEASE, STAGE 3 (MODERATE) Status: Acute (5) Hyponatremia Code(s): E87.1 - HYPO-OSMOLALITY AND HYPONATREMIA Status: Acute (6) Sepsis Code(s): A41.9 - SEPSIS, UNSPECIFIED ORGANISM Status: Acute (7) UTI (urinary tract infection) Status: Acute Comment: due to klebsiela (8) Chronic anemia Code(s): D64.9 - ANEMIA, UNSPECIFIED Status: Chronic (9) GERD (gastroesophageal reflux disease) Code(s): K21.9 - GASTRO-ESOPHAGEAL REFLUX DISEASE WITHOUT ESOPHAGITIS Status: Chronic Qualifiers: Esophagitis presence: esophagitis presence not specified Qualified Code(s) : K21.9 - Gastro-esophageal reflux disease without esophagitis (10) Hyperlipidemia Code(s): E78.5 - HYPERLIPIDEMIA, UNSPECIFIED Status: Chronic Qualifiers: Hyperlipidemia type: unspecified Qualified Code(s): E78.5 - Hyperlipidemia , unspecified (11) Hypertension Code(s): I10 - ESSENTIAL (PRIMARY) HYPERTENSION Status: Chronic Qualifiers: Hypertension type: essential hypertension Qualified Code(s): I10 - Essential (primary) hypertension (12) SLE (systemic lupus erythematosus) Code(s): M32.9 - SYSTEMIC LUPUS ERYTHEMATOSUS, UNSPECIFIED Status: Chronic Qualifiers: Systemic lupus erythematosus type: unspecified (13) Physical deconditioning Code(s): R53.81 - OTHER MALAISE Status: Acute (14) Atelectasis of both lungs Code(s): J98.11 - ATELECTASIS Status: Acute (15) Hypokalemia Code(s): E87.6 - HYPOKALEMIA Status: Acute (16) Hypophosphatemia Code(s): E83.39 - OTHER DISORDERS OF PHOSPHORUS METABOLISM Status: Acute (17) Hypomagnesemia Code(s): E83.42 - HYPOMAGNESEMIA Status: Acute (18) Acute respiratory failure with hypoxia Code(s): J96.01 - ACUTE RESPIRATORY FAILURE WITH HYPOXIA Status: Acute (19) Colitis, CMV Code(s): A08.39 - OTHER VIRAL ENTERITIS; B25.9 - CYTOMEGALOVIRAL DISEASE, UNSPECIFIED Status: Acute (20) Esophagitis, CMV Code(s): K20.8 - OTHER ESOPHAGITIS; B25.8 - OTHER CYTOMEGALOVIRAL DISEASES Status: Acute (21) Delirium Code(s): R41.0 - DISORIENTATION, UNSPECIFIED Status: Resolved Comment: multifectorial - Plan cont current plan of care, plan discussed w/ family, kerr catheter, continue antibiotics, PT/OT, social work faculty member * continue PT/OT * continue Genciclovir * continue oral cipro * I sent voicemail to Dr chavarria regarding genciclovir * medication reviewed as below * symptomatic treatment. Review of Systems - Review of Systems Constitutional: weakness. negative: fever, chills, sweats, malaise, other ENT: negative: Ear Pain, Ear Discharge, Nose Pain, Nose Discharge, Nose Congestion, Mouth Pain, Mouth Swelling, Throat Pain, Throat Swelling, Other Respiratory: negative: Cough, Dry, Shortness of Breath, Hemoptysis, SOB with Excertion, Pleuritic Pain, Sputum, Wheezing Cardiovascular: negative: chest pain, palpitations, orthopnea, paroxysmal nocturnal dyspnea, edema, light headedness, other Gastrointestinal: Diarrhea. negative: Nausea, Vomiting, Abdominal Pain, Constipation, Melena, Hematochezia, Other Genitourinary: negative: Dysuria, Frequency, Incontinence, Hematuria, Retention , Other Musculoskeletal: negative: Neck Pain, Shoulder Pain, Arm Pain, Back Pain, Hand Pain, Leg Pain, Foot Pain, Other - Medications/Allergies Allergies/Adverse Reactions: Allergies Allergy/AdvReac Type Severity Reaction Status Date / Time iron Allergy Severe Rash Verified 08/24/17 22:19 Sulfa (Sulfonamide Allergy Severe Rash Verified 08/24/17 22:19 Antibiotics) magnesium sulfate Allergy Verified 08/29/17 16:23 sulfate Allergy Uncoded 08/29/17 13:06 Medications: Current Medications Acetaminophen (Tylenol) 650 mg PO Q4H PRN PRN Reason: Headache/Fever or Pain Last Admin: 09/04/17 07:22 Dose: 650 mg Hydrocodone Bitart/Acetaminophen ([place] 5/325) 1 tab PO Q4H PRN PRN Reason: Moderate Pain (4-6) Albuterol/Ipratropium (Duoneb) 3 ml NEB [id number] PRN PRN Reason: SOB &/or Wheezing Artificial Tears (Tears Naturale) 0 drop EA EYE PRN PRN PRN Reason: Dry Eyes Calcitriol (Rocaltrol) 0.25 mcg PO MWF [facility] Last Admin: 09/03/17 09:31 Dose: 0.25 mcg Cholecalciferol (Vitamin D3) 5,000 units PO DAILY [facility] Last Admin: 09/04/17 08:45 Dose: 5,000 units Ciprofloxacin (Cipro) 500 mg PO 0600,2000 [facility] [place] Last Admin: 09/04/17 07:12 Dose: 500 mg Diphenhydramine HCl (Benadryl) 25 mg PO Q6H PRN PRN Reason: Itching & Insomnia Guaifenesin (Robitussin Sf) 200 mg PO Q4H PRN PRN Reason: Cough Hydralazine HCl (Apresoline) 10 mg SLOW IVP Q4H PRN PRN Reason: Systolic BP > 180 Hydroxychloroquine Sulfate (Plaquenil) 300 mg PO DAILY [facility] [place] Last Admin: 09/04/17 08:45 Dose: 300 mg Ganciclovir Sodium 120 mg/ (Sodium Chloride) 252.4 mls @ 252.4 mls/hr IVPB 2100 [facility] [place] Last Admin: 09/03/17 17:54 Dose: 252.4 mls Loperamide HCl (Imodium) 2 mg PO PRN PRN PRN Reason: Diarrhea/Loose Stools Last Admin: 09/04/17 09:06 Dose: 2 mg Metoprolol Succinate (Toprol Xl) 100 mg PO DAILY [facility] Last Admin: 09/04/17 08:46 Dose: 100 mg Mineral Oil/White Petrolatum (Eucerin Cream) 0 gm TOP BIDPRN PRN PRN Reason: Dry Skin Mycophenolate Mofetil (Cellcept) 1,000 mg PO BID [facility] Last Admin: 09/04/17 08:46 Dose: 1,000 mg Nystatin (Mycostatin) 200,000 units SSW DAILY [facility] [place] Last Admin: 09/04/17 08:42 Dose: 200,000 units Ondansetron HCl (Zofran Odt) 4 mg PO Q6H PRN PRN Reason: Nausea/Vomiting Last Admin: 09/04/17 09:06 Dose: 4 mg Ondansetron HCl (Zofran) 4 mg IVP Q6H PRN PRN Reason: Nausea/Vomiting Last Admin: 09/02/17 08:25 Dose: 4 mg Pantoprazole Sodium (Protonix) 40 mg PO DAILY [facility] [place] Last Admin: 09/04/17 08:46 Dose: 40 mg Phenol (Chloraseptic [place] 180 Ml Bot) 0 ml PO PRN PRN PRN Reason: Sore Throat Prednisone (Prednisone) 25 mg PO QAM-[facility] Last Admin: 09/04/17 08:45 Dose: 25 mg Sodium Chloride (Flush - Normal Saline) 10 ml IVF Q12HR [facility] [place] Last Admin: 09/04/17 08:45 Dose: 10 ml Sodium Chloride (Flush - Normal Saline) 10 ml IVF PRN PRN PRN Reason: Saline Flush Last Admin: 08/29/17 20:56 Dose: 10 ml Temazepam (Restoril) 15 mg PO HSPRN PRN PRN Reason: Insomnia
[2017-09-04] MEDS: GANCICLOVIR SODIUM IVPB SCH (20:24)
[2017-09-04] MEDS: SODIUM CHLORIDE 0.9% IVPB SCH (20:24)
[2017-09-05] MEDS: Ciprofloxacin 500 MG TAB PO SCH ×2 (06:12→19:38)
[2017-09-05] MEDS: Loperamide HCl 2 MG CAP PO PRN ×2 (08:37→19:38)
[2017-09-05] MEDS: Ondansetron ODT 4 MG TAB PO PRN ×2 (08:37→15:07)
[2017-09-05] MEDS: Nystatin 500,000 UNITS/5 ML UDCUP SSW SCH (08:38)
[2017-09-05] MEDS: Calcitriol 0.25 MCG CAP PO SCH (08:39)
[2017-09-05] MEDS: Hydroxychloroquine Sulfate 200 MG TAB PO SCH (08:39)
[2017-09-05] MEDS: predniSONE 5 MG TAB PO SCH (08:40)
[2017-09-05] MEDS: Mycophenolate 250 MG CAP PO SCH ×2 (08:41→20:43)
--- NOTE | 2017-09-05 09:49 | DIS ---
DATE OF ADMISSION: 08/25/2017 DATE OF DISCHARGE: 09/05/2017 PRIMARY CARE PHYSICIAN: Dr. Sergio Sen. DISCHARGE DISPOSITION: Rehabilitation. 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 SECONDARY DISCHARGE DIAGNOSES: Hypertension, dyslipidemia, gastroesophageal reflux disease, systemic lupus erythematosus, chronic kidney disease stage 3. PRIMARY PROCEDURE/OPERATION: The patient had upper and lower endoscopy by Dr. Johnston on 08/25/2017 showed distal esophageal ulcer, scattered ulcer in the rectum, sigmoid, ascending and transverse colon. RADIOLOGICAL INVESTIGATION: Abdomen and pelvis CT scan showed extraperitoneal air in the region of space of Retzius, no signs of bladder rupture, colitis. Chest x-ray showed atelectasis. SIGNIFICANT LABORATORY DATA: Most recent labs: WBC 7.7, hemoglobin 8.5, platelets 129, bicarbonate 10.1, CO2 was 17.1, sodium 132, potassium 3.1, BUN 19 , creatinine 0.91, calcium 7.6, magnesium 1.5, AST 13, ALT less than 7, alkaline phosphatase 75, albumin 2.4, lipase 349. Cortisol 4.2. Urinalysis suggestive of UTI. Serum ketones negative. CMV DNA PCR positive. Entamoeba histolytica antibody negative. Urine histoplasma negative. TB QuantiFERON test indeterminant. Urine culture grew Klebsiella. Stool culture revealed Pseudomonas. C. diff negative. DISCHARGE MEDICATIONS: Amlodipine 10 mg p.o. daily, Excedrin 1 capsule p.o. q.8 hours p.r.n., calcitriol 0.25 mcg p.o. Friday, Friday, Friday, vitamin D3 5000 units p.o. daily, Cipro 500 mg p.o. b.i.d. for 2 more week, cranberry 2 capsules p.o. daily, Lasix 20 mg as directed, Plaquenil 300 mg p.o. daily, Imodium 2 mg as directed, Toprol-XL 100 mg p.o. daily, CellCept 1000 mg p.o. b.i.d., Mycostatin [place] and swallow daily, Zofran 4 mg q.8 hours p.r.n., Protonix 20 mg p.o. daily, prednisone 25 mg p.o. daily, simethicone 125 mg p.o. at bedtime p.r.n., Valcyte 900 mg p.o. b.i.d. for 5 more days till 09/10/2017, Valcyte 900 mg p.o. daily. CONTRAINDICATIONS: None. CODE STATUS: FULL CODE. INPATIENT CONSULTANTS: Dr. Jhonston and GI team was following for refractory diarrhea. They did endoscopy. Dr. Phillips was following for CMV esophagitis and colitis. Dr. Yates was following for kidney failure. Dr. Luly Hernandez was following for acute urinary retention. TEST RESULTS PENDING ON DISCHARGE: None. ALLERGIES: IRON, SULFA, MAGNESIUM SULFATE. DISCHARGE PLAN: Post hospital, the patient is discharged to rehabilitation. She has an appointment with Dr. Luly Hernandez on 09/10/2017 at 1:30 p.m. for voiding trial. She will make followup with Dr. Johnston, Dr. Phillips. HOSPITAL COURSE: A 71-year-old female with the above-mentioned medical problem who was admitted by Dr. Bauer, please see his H&P for further details. She was admitted on 08/25/2017. She presented with nausea, vomiting, diarrhea, and generalized weakness. For the last several days, she was suffering from refractory diarrhea. She was clinically dehydrated. Her urinalysis was suggestive for UTI. She also had acute kidney failure from diarrhea. Her dehydration was corrected. After admission, she was having recurrent diarrhea. She was admitted to medical floor, but at one point, she complained of chest pain and that is why she required transfer to telemetry floor, but her cardiac etiology ruled out. Cardiology was consulted. She had tachycardia, because of recurrent dehydration. Echocardiography was obtained, which was normal and Dr. Siu also evaluated this patient. Given her urinary tract infection, we did a CT stone protocol and radiology reported as bladder rupture and that is why we immediately consulted Urology and Urology did CT of the abdomen with cystography and that was negative for any bladder rupture, but it did show acute urinary retention, required Villanueva catheter. CT of the abdomen and pelvis was also consistent with colitis. Initially, we started on treatment for urinary tract infection with Rocephin and Levaquin and based on culture results, we changed to Cipro upon discharge. When we are giving her levofloxacin, she was developing hallucination and that is why we discontinued the levofloxacin and changed to Cipro on discharge. After discontinuing levofloxacin, her hallucination was resolved. Her urine culture grew Klebsiella and Dr. Luly Hernandez will see this patient on 09/10/2017 for voiding trial for urinary retention. She is planned for discharge to rehab with a Villanueva catheter. She was having on and off diarrhea while in hospital and GI did an endoscopy and found with esophageal ulcer and scattered ulcer in the rectum, sigmoid colon and ascending colon and that was suspected for CMV. CMV DNA came back positive. Dr. Phillips started ganciclovir IV on 08/26/2017. She has given 10 days IV therapy while in hospital and now we are changing based on Dr. Phillips' recommendation to 900 mg p.o. b.i.d. for another 5 days to finish 2 weeks of induction therapy and then she will continue 900 mg daily for 3 months and she will follow up with Dr. Phillips. Her all immunosuppressive therapy is continued while in hospital. This patient has poor appetite. She has physical deconditioning and that is why we consulted rehabilitation and rehabilitation accepted her for more PT, OT. While in hospital, she had abnormal electrolytes. We tried to replace her magnesium with magnesium sulfate, but she developed some allergic reaction and that is why further replacement not happen. Potassium was replaced while in hospital. Somehow, her lipase was elevated, but she did not have any abdominal pain. This patient is at high risk for recurrent admission given her multiple comorbidities and underlying diagnosis. Today, I have seen this patient at bedside and examined and spoke with the family member and plan of care discussed with them. PHYSICAL EXAMINAITON: VITAL SIGNS: Currently, temperature 98.2, pulse 60, respiratory rate 18, saturation 95% on room air, blood pressure 150/71, weight 94 pounds. GENERAL: The patient is currently weak, fragile, no obvious acute distress. HEAD: Normocephalic, atraumatic. EYES: Pupils round, reactive to light. Extraocular muscles intact. ENT: Oropharynx within normal limits. NECK: Supple. No JVD. LUNGS: Clear to auscultation. Reduced air entry at bases. CARDIAC: S1, S2 regular without any murmur. ABDOMEN: Soft and benign without any tenderness, no peritoneal sign. EXTREMITIES: No edema. NEUROLOGIC: Nonfocal examination. At rehabilitation, the patient will need Urology followup. They need to monitor her oxygen saturation and assess for requirement of oxygen upon discharge, incentive spirometry, p.r.n. DuoNeb therapy and nutritional support. MTDD
--- NOTE | 2017-09-05 10:04 | PDOC.PN ---
- Subjective Encounter Start Date: 09/05/17 Encounter Start Time: 09:15 Patient seen and examined. No new complaints. No overnight events - Objective MAR Reviewed: Yes Vital Signs & Weight: Vital Signs (12 hours) Temp Pulse Resp BP Pulse Ox 09/05/17 07:44 98.2 F 60 18 150/71 H 95 Weight Admit Weight 90 lb Weight 94 lb 9.6 oz I&O: 09/04/17 09/05/17 09/06/17 06:59 06:59 06:59 Intake Total 1270 990 Output Total 800 1850 Balance 470 -860 Result Diagrams: 09/02/17 06:56 09/03/17 10:16 Phys Exam - Physical Examination Constitutional: NAD HEENT: PERRLA, moist MMs, sclera anicteric Neck: no JVD, supple Respiratory: no wheezing, no rales, no rhonchi Cardiovascular: RRR, no significant murmur, no rub Gastrointestinal: soft, non-tender, no distention, positive bowel sounds Musculoskeletal: no edema, pulses present Neurological: non-focal Psychiatric: normal affect, A&O x 3 Skin: no rash, normal turgor Dx/Plan (1) Acute urinary retention Code(s): R33.8 - OTHER RETENTION OF URINE Status: Acute Comment: with kerr + (2) Emphysematous cystitis Code(s): N30.80 - OTHER CYSTITIS WITHOUT HEMATURIA Status: Acute (3) Normal anion gap metabolic acidosis Code(s): E87.2 - ACIDOSIS Status: Acute Comment: improved (4) Acute worsening of stage 3 chronic kidney disease Code(s): N18.3 - CHRONIC KIDNEY DISEASE, STAGE 3 (MODERATE) Status: Acute (5) Hyponatremia Code(s): E87.1 - HYPO-OSMOLALITY AND HYPONATREMIA Status: Acute (6) Sepsis Code(s): A41.9 - SEPSIS, UNSPECIFIED ORGANISM Status: Acute (7) UTI (urinary tract infection) Status: Acute Comment: due to klebsiela (8) Chronic anemia Code(s): D64.9 - ANEMIA, UNSPECIFIED Status: Chronic (9) GERD (gastroesophageal reflux disease) Code(s): K21.9 - GASTRO-ESOPHAGEAL REFLUX DISEASE WITHOUT ESOPHAGITIS Status: Chronic Qualifiers: Esophagitis presence: esophagitis presence not specified Qualified Code(s) : K21.9 - Gastro-esophageal reflux disease without esophagitis (10) Hyperlipidemia Code(s): E78.5 - HYPERLIPIDEMIA, UNSPECIFIED Status: Chronic Qualifiers: Hyperlipidemia type: unspecified Qualified Code(s): E78.5 - Hyperlipidemia , unspecified (11) Hypertension Code(s): I10 - ESSENTIAL (PRIMARY) HYPERTENSION Status: Chronic Qualifiers: Hypertension type: essential hypertension Qualified Code(s): I10 - Essential (primary) hypertension (12) SLE (systemic lupus erythematosus) Code(s): M32.9 - SYSTEMIC LUPUS ERYTHEMATOSUS, UNSPECIFIED Status: Chronic Qualifiers: Systemic lupus erythematosus type: unspecified (13) Physical deconditioning Code(s): R53.81 - OTHER MALAISE Status: Acute (14) Atelectasis of both lungs Code(s): J98.11 - ATELECTASIS Status: Acute (15) Hypokalemia Code(s): E87.6 - HYPOKALEMIA Status: Acute (16) Hypophosphatemia Code(s): E83.39 - OTHER DISORDERS OF PHOSPHORUS METABOLISM Status: Acute (17) Hypomagnesemia Code(s): E83.42 - HYPOMAGNESEMIA Status: Acute (18) Acute respiratory failure with hypoxia Code(s): J96.01 - ACUTE RESPIRATORY FAILURE WITH HYPOXIA Status: Acute (19) Colitis, CMV Code(s): A08.39 - OTHER VIRAL ENTERITIS; B25.9 - CYTOMEGALOVIRAL DISEASE, UNSPECIFIED Status: Acute (20) Esophagitis, CMV Code(s): K20.8 - OTHER ESOPHAGITIS; B25.8 - OTHER CYTOMEGALOVIRAL DISEASES Status: Acute (21) Delirium Code(s): R41.0 - DISORIENTATION, UNSPECIFIED Status: Resolved Comment: multifectorial - Plan cont current plan of care, plan discussed w/ family, kerr catheter, continue antibiotics, PT/OT, psychiatric social worker * medication reviewed as below * symptomatic treatment * see discharge [place]. Review of Systems - Review of Systems Constitutional: weakness. negative: fever, chills, sweats, malaise, other Eyes: negative: Pain, Vision Change, Conjunctivae Inflammation, Eyelid Inflammation, Redness, Other ENT: negative: Ear Pain, Ear Discharge, Nose Pain, Nose Discharge, Nose Congestion, Mouth Pain, Mouth Swelling, Throat Pain, Throat Swelling, Other Respiratory: negative: Cough, Dry, Shortness of Breath, Hemoptysis, SOB with Excertion, Pleuritic Pain, Sputum, Wheezing Cardiovascular: negative: chest pain, palpitations, orthopnea, paroxysmal nocturnal dyspnea, edema, light headedness, other Gastrointestinal: Diarrhea. negative: Nausea, Vomiting, Abdominal Pain, Constipation, Melena, Hematochezia, Other Genitourinary: negative: Dysuria, Frequency, Incontinence, Hematuria, Retention , Other Musculoskeletal: negative: Neck Pain, Shoulder Pain, Arm Pain, Back Pain, Hand Pain, Leg Pain, Foot Pain, Other Skin: negative: Rash, Lesions, Surya, Bruising, Other - Medications/Allergies Allergies/Adverse Reactions: Allergies Allergy/AdvReac Type Severity Reaction Status Date / Time iron Allergy Severe Rash Verified 08/24/17 22:19 Sulfa (Sulfonamide Allergy Severe Rash Verified 08/24/17 22:19 Antibiotics) magnesium sulfate Allergy Verified 08/29/17 16:23 sulfate Allergy Uncoded 08/29/17 13:06 Medications: Current Medications Acetaminophen (Tylenol) 650 mg PO Q4H PRN PRN Reason: Headache/Fever or Pain Last Admin: 09/04/17 20:38 Dose: 650 mg Hydrocodone Bitart/Acetaminophen ([place] 5/325) 1 tab PO Q4H PRN PRN Reason: Moderate Pain (4-6) Albuterol/Ipratropium (Duoneb) 3 ml NEB [id number] PRN PRN Reason: SOB &/or Wheezing Artificial Tears (Tears Naturale) 0 drop EA EYE PRN PRN PRN Reason: Dry Eyes Calcitriol (Rocaltrol) 0.25 mcg PO MWF [facility] Last Admin: 09/05/17 08:39 Dose: 0.25 mcg Cholecalciferol (Vitamin D3) 5,000 units PO DAILY [facility] Last Admin: 09/05/17 08:49 Dose: 5,000 units Ciprofloxacin (Cipro) 500 mg PO 0600,1999 [facility] Last Admin: 09/05/17 06:12 Dose: 500 mg Diphenhydramine HCl (Benadryl) 25 mg PO Q6H PRN PRN Reason: Itching & Insomnia Guaifenesin (Robitussin Sf) 200 mg PO Q4H PRN PRN Reason: Cough Hydralazine HCl (Apresoline) 10 mg SLOW IVP Q4H PRN PRN Reason: Systolic BP > 180 Hydroxychloroquine Sulfate (Plaquenil) 300 mg PO DAILY [facility] Last Admin: 09/05/17 08:39 Dose: 300 mg Ganciclovir Sodium 120 mg/ (Sodium Chloride) 252.4 mls @ 252.4 mls/hr IVPB 2100 [facility] Last Admin: 09/04/17 20:24 Dose: 252.4 mls Loperamide HCl (Imodium) 2 mg PO PRN PRN PRN Reason: Diarrhea/Loose Stools Last Admin: 09/05/17 08:37 Dose: 2 mg Metoprolol Succinate (Toprol Xl) 100 mg PO DAILY [facility] Last Admin: 09/05/17 08:38 Dose: 100 mg Mineral Oil/White Petrolatum (Eucerin Cream) 0 gm TOP BIDPRN PRN PRN Reason: Dry Skin Mycophenolate Mofetil (Cellcept) 1,000 mg PO BID [facility] Last Admin: 09/05/17 08:41 Dose: 1,000 mg Nystatin (Mycostatin) 200,000 units SSW DAILY [facility] Last Admin: 09/05/17 08:38 Dose: 200,000 units Ondansetron HCl (Zofran Odt) 4 mg PO Q6H PRN PRN Reason: Nausea/Vomiting Last Admin: 09/05/17 08:37 Dose: 4 mg Ondansetron HCl (Zofran) 4 mg IVP Q6H PRN PRN Reason: Nausea/Vomiting Last Admin: 09/02/17 08:25 Dose: 4 mg Pantoprazole Sodium (Protonix) 40 mg PO DAILY [facility] Last Admin: 09/05/17 08:39 Dose: 40 mg Phenol (Chloraseptic [place] 180 Ml Bot) 0 ml PO PRN PRN PRN Reason: Sore Throat Prednisone (Prednisone) 25 mg PO QAM-WM [facility] Last Admin: 09/05/17 08:40 Dose: 25 mg Sodium Chloride (Flush - Normal Saline) 10 ml IVF Q12HR [facility] Last Admin: 09/05/17 08:38 Dose: 10 ml Sodium Chloride (Flush - Normal Saline) 10 ml IVF PRN PRN PRN Reason: Saline Flush Last Admin: 08/29/17 20:56 Dose: 10 ml Temazepam (Restoril) 15 mg PO HSPRN PRN PRN Reason: Insomnia
[2017-09-05] MEDS: Acetaminophen 325 MG TAB PO PRN (12:15)
[2017-09-05] MEDS: SODIUM CHLORIDE 0.9% IVPB SCH (19:56)
[2017-09-05] MEDS: GANCICLOVIR SODIUM IVPB SCH (19:56)
[2017-09-06] MEDS: Ondansetron ODT 4 MG TAB PO PRN ×2 (01:59→08:53)
[2017-09-06] MEDS: Ciprofloxacin 500 MG TAB PO SCH ×2 (06:14→20:30)
[2017-09-06 09:57] LABS: Anion Gap 9 mmol/L (10-20); BUN (Urea Nitrogen) 19 mg/dL (9.8-20.1); Calc. Creatinine Clearance 36 mL/min (70-130); Calcium 8.2 mg/dL (7.8-10.44); Carbon Dioxide 24 mmol/L (23-31); Chloride 101 mmol/L (98-107); Estimated GFR-MDRD 56; Glucose 74 mg/dL (80-115); Sodium 131 mmol/L (136-145)
[2017-09-06] MEDS: Acetaminophen 325 MG TAB PO PRN ×2 (10:50→20:30)
[2017-09-06] MEDS: Nystatin 500,000 UNITS/5 ML UDCUP SSW SCH (10:51)
[2017-09-06] MEDS: D5 0.9% NS w/ 20 mEq KCl 1,000 ML IV SCH (15:18)
[2017-09-06] MEDS: predniSONE 5 MG TAB PO SCH (15:19)
[2017-09-06] MEDS: Hydroxychloroquine Sulfate 200 MG TAB PO SCH (15:24)
[2017-09-06] MEDS: Mycophenolate 250 MG CAP PO SCH ×2 (15:26→20:30)
--- NOTE | 2017-09-06 15:40 | PRG ---
DATE OF SERVICE: 09/06/2017 SUBJECTIVE: Ms. Burnett has been transferred to the floor. She is having issues with nausea, still decreased oral intake because of early satiety and some pain in the upper abdomen after she eats. D iarrhea has improved and now apparently she had another episode of loose stools earlier this morning. She was being prepared for transfer to rehab, but she developed those changes and she has requested not to be transferred at this time until her oral intake improves and she has no pain. She denies a ny dyspnea, voiding without difficulty. She has been afebrile throughout. PHYSICAL EXAMINATION: VITAL SIGNS: Blood pressure 160/70, pulse 60, respirations 18, O2 sat 95%. GENERAL: Chronically ill appearing multiple areas of bruising in the upper and lower extremities. LUNGS: With symmetric clear breath sounds. CARDIOVASCULAR: S1 and S2, regular rate. ABDOMEN: Soft with mild tenderness in the epigastric area. LABORATORY DATA: White cell count 7.7, hemoglobin 8.5, platelets 129 with 80% neutrophils, which is down from previous findings. Sodium 131, creatinine 0.99, calcium 8.2, albumin is up to 2.4, globuli n is down to 1.6. CMV DNA PCR with 113,000 copies per mL. QuantiFERON was indeterminate. Urine his toplasma antigen less than 0.5. CMV immunostain was positive. This was strong with diffuse finding in the biopsy. C. diff test was negative as noted previously. ASSESSMENT AND DISCUSSION: Systemic lupus erythematosus with immunosuppression associated with treat ment and recently identified CMV viremia, now finishing the course of the induction with ganciclovir and now it has been switched to oral valganciclovir. The current dose is 900 mg twice daily to compl ete treatment course until . After that then transition to valganciclovir 900 mg once daily. Ne ed to continue monitoring periodically as far as CBC because of possible toxicities from the valganci clovir. Follow up CMV DNA PCR and clinical symptoms. Duration of therapy will depend on clinical sy mptoms and the degree of immunosuppression as well as resolution of viremia, so there is not a precis e duration of therapy from this kind of circumstance, particularly in view of the fact that she is ch ronically immunosuppressed. They are trying to taper steroids and transition to less immunosuppressi ve regimen which will help.
[2017-09-07] MEDS: D5 0.9% NS w/ 20 mEq KCl 1,000 ML IV SCH ×2 (01:27→10:38)
[2017-09-07] MEDS: Ciprofloxacin 500 MG TAB PO SCH ×2 (06:00→20:53)
[2017-09-07] MEDS: Loperamide HCl 2 MG CAP PO PRN ×2 (06:23→20:53)
[2017-09-07] MEDS: Nystatin 500,000 UNITS/5 ML UDCUP SSW SCH (09:11)
[2017-09-07] MEDS: Ondansetron ODT 4 MG TAB PO PRN (09:11)
[2017-09-07] MEDS: Hydroxychloroquine Sulfate 200 MG TAB PO SCH (09:12)
[2017-09-07] MEDS: predniSONE 5 MG TAB PO SCH (09:13)
[2017-09-07] MEDS ORDERED: Amlodipine 10 MG TAB PO SCH (10:15)
--- NOTE | 2017-09-07 10:15 | PRG ---
DATE OF SERVICE: 09/07/2017 SUBJECTIVE: The patient was seen and examined at bedside. She complains about some right-sided ches t pain on applied pressure on and off, which is nothing new, but from time to time, she gets this kin d of discomfort. Her appetite is poor. She just finished her physical therapy. She was able to wal k to the door and back. She feels weak and tired. OBJECTIVE: VITAL SIGNS: Blood pressure is 170/81, pulse is 58, temperature is 98.0, respiratory rate is 16, O2 saturation is 96%. GENERAL: She looks tired. Apparently, she had several bouts of watery diarrhea last night. She york s not have any nausea. HEENT: Head atraumatic, normocephalic. Sclerae nonicteric. Pupils responding to light properly. O ral mucosa is slightly dry. NECK: Supple. LUNGS: Diminished at both bases, no wheezing. CARDIOVASCULAR: S1, S2, somewhat distant, no S3, no S4. ABDOMEN: Soft, nontender, bowel sounds are present, no organomegaly. EXTREMITIES: 1+ peripheral edema around both ankles. Upper and lower extremities showed some weakne ss. NEUROLOGIC: She follows my commands. She moves her all 4 extremities. There is no any sensory or m otor deficits. Cranial nerves are intact. LABORATORY DATA: None today. IMPRESSION: 1. 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 2. Cytomegalovirus esophagitis. 3. Failure to thrive in adult. 4. Right chest pain which is most likely related to her atelectasis and pleural effusion bilaterally . 5. Sepsis. 6. Hypokalemia and hyponatremia with hypomagnesemia and hypophosphatemia. 7. Urine tract infection. 8. Acute on chronic kidney failure, stage 3. 9. Physical deconditioning. 10. Delirium, resolved. 11. Hypertension, requiring restarting her amlodipine. PLAN: She is not going to be moved rehab today. We will start her on amlodipine since she is hypert ensive 10 mg. We will check H&H and BMP. She did not have the follow up lab work done on this. She was receiving potassium with IV fluids at 100 mL. We will cut back on the rate to 50 a day. I will start her Megace for her appetite 800 mg once a day and we will lower her prednisone to 20 mg from 2 5. H&H will be added. She will continue PT, OT, and based on the lab findings, we will recommend mo re but for now will continue her current regimen with p.o. antiviral.
[2017-09-07 10:33] LABS: Hemoglobin 8.7 g/dL (12.0-16.0)
[2017-09-07] MEDS: Acetaminophen 325 MG TAB PO PRN ×2 (10:33→20:53)
[2017-09-07] MEDS: Mycophenolate 250 MG CAP PO SCH ×2 (10:34→20:53)
[2017-09-07 10:52] LABS: Anion Gap 12 mmol/L (10-20); BUN (Urea Nitrogen) 16 mg/dL (9.8-20.1); Calc. Creatinine Clearance 41 mL/min (70-130); Calcium 7.5 mg/dL (7.8-10.44); Carbon Dioxide 19 mmol/L (23-31); Chloride 106 mmol/L (98-107); Estimated GFR-MDRD 64; Glucose 118 mg/dL (80-115); Magnesium 1.5 mg/dL (1.6-2.6); Potassium 3.6 mmol/L (3.5-5.1); Sodium 133 mmol/L (136-145)
[2017-09-08] MEDS: Ciprofloxacin 500 MG TAB PO SCH ×2 (06:28→20:23)
[2017-09-08] MEDS: Loperamide HCl 2 MG CAP PO PRN ×2 (07:10→21:26)
[2017-09-08] MEDS: D5 0.9% NS w/ 20 mEq KCl 1,000 ML IV SCH ×3 (07:10→23:31)
[2017-09-08] MEDS: Mycophenolate 250 MG CAP PO SCH ×2 (08:05→20:23)
[2017-09-08] MEDS: Amlodipine 10 MG TAB PO SCH (08:06)
[2017-09-08] MEDS: predniSONE 20 MG TAB PO SCH (08:06)
[2017-09-08] MEDS: Hydroxychloroquine Sulfate 200 MG TAB PO SCH (08:06)
[2017-09-08] MEDS: Calcitriol 0.25 MCG CAP PO SCH (08:07)
[2017-09-08] MEDS: Nystatin 500,000 UNITS/5 ML UDCUP SSW SCH (08:07)
[2017-09-08] MEDS: Megestrol Acetate 800 MG/20 ML UDCUP PO SCH (08:08)
[2017-09-08] MEDS ORDERED: Amlodipine 10 MG TAB PO SCH (09:00)
--- NOTE | 2017-09-08 10:35 | PRG ---
DATE OF SERVICE: 09/08/2017 Still with mild to moderate nausea, particularly after eating or taking pills. She is able to hold t he pills down though, no vomiting. Mild abdominal cramps and tenderness. For some reason she was gi tex a stool softener this morning, had some soft stools. No dyspnea and still needs a Villanueva catheter for a voiding. PHYSICAL EXAMINATION: VITAL SIGNS: T-max 98.0, blood pressure 160/76, pulse 58, respirations 20, O2 sat 95%. GENERAL: Chronically ill appearing, but in no acute distress, oriented. Follows commands, pleasant. LUNGS: With symmetric clear breath sounds. HEENT: Somewhat pale conjunctivae. Ocular movements are conjugate. ABDOMEN: Soft, flat, not distended. Bowel sounds are not increased. Mild tenderness. No bladder d istention. EXTREMITIES: Moves extremities equally. LABORATORY DATA: White cell count 7.7 from a few days ago, hemoglobin 8.7 from yesterday. Chemistry unremarkable. ASSESSMENT AND DISCUSSION: Systemic lupus erythematosus with immunosuppression associated with treat ment plus CMV viremia with gastrointestinal involvement, having been switched to oral valganciclovir, current dose 900 mg twice daily to complete induction treatment course until 09/09/2017, after that transition to valganciclovir 900 mg once daily and then continue for a protracted period of time with periodic monitoring of CMV viremia and clinical symptoms. Other opportunistic infection processes n ot apparent at this time, but will have to continue to be monitored for other potential complications .
[2017-09-08] MEDS: Ondansetron HCl/PF 4 MG/2 ML Vial IVP PRN (11:02)
[2017-09-08] MEDS: Acetaminophen 325 MG TAB PO PRN ×2 (11:02→16:52)
--- NOTE | 2017-09-08 14:18 | PDOC.PN ---
- Subjective Encounter Start Date: 09/08/17 Encounter Start Time: 12:15 Patient seen and examined. Diarrhea +. Poor appetite. No overnight events - Objective MAR Reviewed: Yes Vital Signs & Weight: Vital Signs (12 hours) Temp Pulse Resp BP BP Pulse Ox 09/08/17 08:06 58 L 164/76 H 09/08/17 08:00 97.9 F 58 L 16 164/76 H 95 Weight Admit Weight 90 lb Weight 94 lb 9.6 oz I&O: 09/07/17 09/08/17 09/09/17 06:59 06:59 06:59 Intake Total 2540 840 Output Total 2150 1350 Balance 390 -510 Result Diagrams: 09/07/17 10:20 09/07/17 10:20 Phys Exam - Physical Examination Constitutional: NAD Respiratory: no wheezing, no rhonchi Cardiovascular: RRR, no rub Gastrointestinal: soft, positive bowel sounds mild gen tenderness, no rebound Musculoskeletal: no edema Neurological: moves all 4 limbs Psychiatric: A&O x 3 Dx/Plan - Plan DVT proph w/SCDs IMPRESSION: 1. CMV Esophagitis/Colitis 2. Electrolyte abn - hypokalemia/hypomagnesemia 3. SLE on chronic steroids 4. LUIS FELIPE on CKD 2 5. Klebsiella UTI - on Cipro 6. Other issues per previous notes PLAN: * Cont gentle IV hydration due to poor appetite/diarrhea * Replace electrolytes * AM labs * Cont current meds as below Review of Systems - Review of Systems Respiratory: negative: Cough, Dry, Shortness of Breath, Hemoptysis, SOB with Excertion, Pleuritic Pain, Sputum, Wheezing Cardiovascular: negative: chest pain, palpitations, orthopnea, paroxysmal nocturnal dyspnea, edema, light headedness - Medications/Allergies Allergies/Adverse Reactions: Allergies Allergy/AdvReac Type Severity Reaction Status Date / Time iron Allergy Severe Rash Verified 08/24/17 22:19 Sulfa (Sulfonamide Allergy Severe Rash Verified 08/24/17 22:19 Antibiotics) magnesium sulfate Allergy Verified 08/29/17 16:23 sulfate Allergy Uncoded 08/29/17 13:06 Medications: Current Medications Acetaminophen (Tylenol) 650 mg PO Q4H PRN PRN Reason: Headache/Fever or Pain Last Admin: 09/08/17 11:02 Dose: 650 mg Albuterol/Ipratropium (Duoneb) 3 ml NEB [id number] PRN PRN Reason: SOB &/or Wheezing Amlodipine Besylate (Norvasc) 10 mg PO DAILY [facility] Last Admin: 09/08/17 08:06 Dose: 10 mg Artificial Tears (Tears Naturale) 0 drop EA EYE PRN PRN PRN Reason: Dry Eyes Calcitriol (Rocaltrol) 0.25 mcg PO MWF [facility] Last Admin: 09/08/17 08:07 Dose: 0.25 mcg Cholecalciferol (Vitamin D3) 5,000 units PO DAILY [facility] Last Admin: 09/08/17 08:05 Dose: 5,000 units Ciprofloxacin (Cipro) 500 mg PO 06,1999 [facility] Last Admin: 09/08/17 06:28 Dose: 500 mg Diphenhydramine HCl (Benadryl) 25 mg PO Q6H PRN PRN Reason: Itching & Insomnia Guaifenesin (Robitussin Sf) 200 mg PO Q4H PRN PRN Reason: Cough Hydralazine HCl (Apresoline) 10 mg SLOW IVP Q4H PRN PRN Reason: Systolic BP > 180 Hydroxychloroquine Sulfate (Plaquenil) 300 mg PO DAILY [facility] Last Admin: 09/08/17 08:06 Dose: 300 mg Potassium Chloride/Dextrose/Sod Cl (D5 0.9% Ns W/ 20 Meq Kcl) 1,000 mls @ 50 mls/hr IV .Q20H [facility] Last Admin: 09/08/17 07:10 Dose: 1,000 mls Loperamide HCl (Imodium) 2 mg PO PRN PRN PRN Reason: Diarrhea/Loose Stools Last Admin: 09/08/17 07:10 Dose: 2 mg Megestrol Acetate (Megace) 800 mg PO DAILY [facility] Last Admin: 09/08/17 08:08 Dose: 800 mg Metoprolol Succinate (Toprol Xl) 100 mg PO DAILY [facility] Last Admin: 09/08/17 08:07 Dose: Not Given Mineral Oil/White Petrolatum (Eucerin Cream) 0 gm TOP BIDPRN PRN PRN Reason: Dry Skin Mycophenolate Mofetil (Cellcept) 1,000 mg PO BID [facility] Last Admin: 09/08/17 08:05 Dose: 1,000 mg Nystatin (Mycostatin) 200,000 units SSW DAILY [facility] Last Admin: 09/08/17 08:07 Dose: 200,000 units Ondansetron HCl (Zofran Odt) 4 mg PO Q6H PRN PRN Reason: Nausea/Vomiting Last Admin: 09/07/17 09:11 Dose: 4 mg Ondansetron HCl (Zofran) 4 mg IVP Q6H PRN PRN Reason: Nausea/Vomiting Last Admin: 09/08/17 11:02 Dose: 4 mg Pantoprazole Sodium (Protonix) 40 mg PO DAILY [facility] Last Admin: 09/08/17 08:07 Dose: 40 mg Phenol (Chloraseptic [place] 180 Ml Bot) 0 ml PO PRN PRN PRN Reason: Sore Throat Prednisone (Prednisone) 20 mg PO QAM-[facility] Last Admin: 09/08/17 08:06 Dose: 20 mg Sodium Chloride (Flush - Normal Saline) 10 ml IVF Q12HR [facility] Last Admin: 09/08/17 10:01 Dose: Not Given Sodium Chloride (Flush - Normal Saline) 10 ml IVF PRN PRN PRN Reason: Saline Flush Last Admin: 08/29/17 20:56 Dose: 10 ml Temazepam (Restoril) 15 mg PO HSPRN PRN PRN Reason: Insomnia Valganciclovir (Valcyte) 900 mg PO BID [facility] Last Admin: 09/08/17 08:05 Dose: 900 mg
[2017-09-09 05:08] LABS: Hemoglobin 7.3 g/dL (12.0-16.0); Platelet Count 177 thou/uL (130-400)
[2017-09-09] MEDS: Ciprofloxacin 500 MG TAB PO SCH ×2 (05:21→21:04)
[2017-09-09 05:26] LABS: Albumin 2.2 g/dL (3.4-4.8); Anion Gap 10 mmol/L (10-20); BUN (Urea Nitrogen) 17 mg/dL (9.8-20.1); BUN/Creatinine Ratio 17.89; Calc. Creatinine Clearance 37 mL/min (70-130); Calcium 7.5 mg/dL (7.8-10.44); Carbon Dioxide 17 mmol/L (23-31); Chloride 110 mmol/L (98-107); Estimated GFR-MDRD 58; Glucose 99 mg/dL (80-115); Magnesium 1.4 mg/dL (1.6-2.6); Phosphorus 2.1 mg/dL (2.3-4.7); Potassium 4.1 mmol/L (3.5-5.1); Sodium 133 mmol/L (136-145)
[2017-09-09] MEDS: Acetaminophen 325 MG TAB PO PRN ×2 (07:29→15:17)
[2017-09-09] MEDS: Hydroxychloroquine Sulfate 200 MG TAB PO SCH (07:30)
[2017-09-09] MEDS: predniSONE 20 MG TAB PO SCH (07:31)
[2017-09-09] MEDS: Ondansetron HCl/PF 4 MG/2 ML Vial IVP PRN (07:36)
[2017-09-09] MEDS: Amlodipine 10 MG TAB PO SCH (07:42)
[2017-09-09] MEDS ORDERED: Magnesium Oxide 400 MG TAB PO SCH (09:15)
[2017-09-09] MEDS: Megestrol Acetate 800 MG/20 ML UDCUP PO SCH (10:05)
[2017-09-09] MEDS: Nystatin 500,000 UNITS/5 ML UDCUP SSW SCH (10:05)
[2017-09-09] MEDS: Mycophenolate 250 MG CAP PO SCH ×2 (10:05→21:12)
[2017-09-09] MEDS ORDERED: predniSONE 1 MG/ML ML PO SCH (11:45)
[2017-09-09] MEDS ORDERED: predniSONE 5 MG TAB PO SCH (12:15)
[2017-09-09] MEDS: K-Phos Neutral 250 MG TAB PO SCH ×3 (12:28→21:03)
[2017-09-09] MEDS ORDERED: Epoetin 40,000 UNITS/ML VIAL SC SCH (14:30)
[2017-09-09] MEDS ORDERED: Epoetin (ESRD) 20,000 UNITS/ML SC SCH (14:45)
[2017-09-09] MEDS: Loperamide HCl 2 MG CAP PO PRN ×2 (15:17→21:02)
[2017-09-09] MEDS: D5 0.9% NS w/ 20 mEq KCl 1,000 ML IV SCH (18:42)
--- NOTE | 2017-09-09 18:53 | PDOC.PN ---
- Subjective Encounter Start Date: 09/09/17 Encounter Start Time: 11:00 Patient seen and examined. Feels weak. Poor appetite. Diarrhea +. No overnight events - Objective MAR Reviewed: Yes Vital Signs & Weight: Vital Signs (12 hours) Temp Pulse Pulse Pulse Pulse Pulse Resp 09/09/17 14:36 116 H 91 123 H 124 H 09/09/17 07:55 98.7 F 80 16 09/09/17 07:42 80 09/09/17 07:40 98.7 F 80 12 BP BP BP BP BP Pulse Ox Pulse Ox 09/09/17 14:36 130/69 120/61 133/75 149/81 H 92 L 09/09/17 07:55 09/09/17 07:42 09/09/17 07:40 119/64 95 Pulse Ox Pulse Ox Pulse Ox 09/09/17 14:36 94 L 94 L 95 09/09/17 07:55 09/09/17 07:42 09/09/17 07:40 Weight Admit Weight 90 lb Weight 94 lb 9.6 oz I&O: 09/08/17 09/09/17 09/10/17 06:59 06:59 06:59 Intake Total 840 1000 Output Total 1350 250 375 Balance -510 -250 625 Result Diagrams: 09/09/17 04:43 09/09/17 04:43 Phys Exam - Physical Examination Constitutional: NAD (ill appearing) Respiratory: no wheezing, no rhonchi Cardiovascular: RRR, no rub Gastrointestinal: soft, positive bowel sounds mild gen tenderness Musculoskeletal: no edema Neurological: moves all 4 limbs Dx/Plan - Plan plan discussed w/ family, continue antibiotics, DVT proph w/SCDs IMPRESSION: 1. CMV Esophagitis/Colitis with ongoing diarrhea 2. Electrolyte abn - hypokalemia/hypomagnesemia 3. SLE on chronic steroids 4. LUIS FELIPE on CKD 2 5. Klebsiella UTI/Empysematous Pyelonephritis - on Cipro 6. Urinary retention s/p kerr catheter 7. Anemia - On Epogen as outpt 6. Other issues per previous notes PLAN: * Change IVF to 1/2 NS with Pot chloride due to hyperchloremia * Epogen per Hem-Onc * Voiding trial in AM * GI input due to diarrhea * Replace electrolytes - Pt is allergic to IV Mg sulfate * AM labs * Cont current meds as below - Change Prednisone to home dose (25 mg from 20 mg) Review of Systems - Review of Systems Respiratory: negative: Cough, Dry, Shortness of Breath, Hemoptysis, SOB with Excertion, Pleuritic Pain, Sputum, Wheezing Cardiovascular: negative: chest pain, palpitations, orthopnea, paroxysmal nocturnal dyspnea, edema, light headedness Gastrointestinal: Diarrhea. negative: Nausea, Vomiting, Abdominal Pain, Constipation, Melena, Hematochezia - Medications/Allergies Allergies/Adverse Reactions: Allergies Allergy/AdvReac Type Severity Reaction Status Date / Time iron Allergy Severe Rash Verified 08/24/17 22:19 Sulfa (Sulfonamide Allergy Severe Rash Verified 08/24/17 22:19 Antibiotics) magnesium sulfate Allergy Verified 08/29/17 16:23 sulfate Allergy Uncoded 08/29/17 13:06 Medications: Current Medications Acetaminophen (Tylenol) 650 mg PO Q4H PRN PRN Reason: Headache/Fever or Pain Last Admin: 09/09/17 15:17 Dose: 650 mg Albuterol/Ipratropium (Duoneb) 3 ml NEB [id number] PRN PRN Reason: SOB &/or Wheezing Amlodipine Besylate (Norvasc) 10 mg PO DAILY [facility] Last Admin: 09/09/17 07:42 Dose: Not Given Artificial Tears (Tears Naturale) 0 drop EA EYE PRN PRN PRN Reason: Dry Eyes Calcitriol (Rocaltrol) 0.25 mcg PO MWF [facility] Last Admin: 09/08/17 08:07 Dose: 0.25 mcg Cholecalciferol (Vitamin D3) 5,000 units PO DAILY [facility] Last Admin: 09/09/17 07:31 Dose: 5,000 units Ciprofloxacin (Cipro) 500 mg PO 0600,2000 [facility] Last Admin: 09/09/17 05:21 Dose: 500 mg Diphenhydramine HCl (Benadryl) 25 mg PO Q6H PRN PRN Reason: Itching & Insomnia Epoetin Matt (Procrit) 20,000 units SC ONE [facility] Stop: 09/09/17 21:00 Last Admin: 09/09/17 17:46 Dose: 20,000 units Guaifenesin (Robitussin Sf) 200 mg PO Q4H PRN PRN Reason: Cough Hydralazine HCl (Apresoline) 10 mg SLOW IVP Q4H PRN PRN Reason: Systolic BP > 180 Hydroxychloroquine Sulfate (Plaquenil) 300 mg PO DAILY [facility] Last Admin: 09/09/17 07:30 Dose: 300 mg Potassium Chloride/Sodium Chloride (1/2 Ns W/Kcl 20 Meq) 1,000 mls @ 50 mls/hr IV .Q20H [facility] Loperamide HCl (Imodium) 2 mg PO PRN PRN PRN Reason: Diarrhea/Loose Stools Last Admin: 09/09/17 15:17 Dose: 2 mg Magnesium Oxide (Magnesium Oxide) 400 mg PO BID [facility] Megestrol Acetate (Megace) 800 mg PO DAILY [facility] Last Admin: 09/09/17 10:05 Dose: 800 mg Metoprolol Succinate (Toprol Xl) 100 mg PO DAILY [facility] Last Admin: 09/09/17 07:42 Dose: Not Given Mineral Oil/White Petrolatum (Eucerin Cream) 0 gm TOP BIDPRN PRN PRN Reason: Dry Skin Mycophenolate Mofetil (Cellcept) 1,000 mg PO BID [facility] Last Admin: 09/09/17 10:05 Dose: 1,000 mg Nystatin (Mycostatin) 200,000 units SSW DAILY [facility] Last Admin: 09/09/17 10:05 Dose: 200,000 units Ondansetron HCl (Zofran Odt) 4 mg PO Q6H PRN PRN Reason: Nausea/Vomiting Last Admin: 09/07/17 09:11 Dose: 4 mg Ondansetron HCl (Zofran) 4 mg IVP Q6H PRN PRN Reason: Nausea/Vomiting Last Admin: 09/09/17 07:36 Dose: 4 mg Pantoprazole Sodium (Protonix) 40 mg PO DAILY [facility] Last Admin: 09/09/17 07:30 Dose: 40 mg Phenol (Chloraseptic [place] 180 Ml Bot) 0 ml PO PRN PRN PRN Reason: Sore Throat Phosphorus (Kphos Neutral) 500 mg PO QID-[facility] Last Admin: 09/09/17 17:46 Dose: 500 mg Prednisone (Prednisone) 20 mg PO QAM-[facility] Last Admin: 09/09/17 07:31 Dose: 20 mg Prednisone (Prednisone) 5 mg PO QAM-WM [facility] Stop: 09/14/17 08:01 Sodium Chloride (Flush - Normal Saline) 10 ml IVF Q12HR [facility] Last Admin: 09/09/17 10:11 Dose: Not Given Sodium Chloride (Flush - Normal Saline) 10 ml IVF PRN PRN PRN Reason: Saline Flush Last Admin: 08/29/17 20:56 Dose: 10 ml Temazepam (Restoril) 15 mg PO HSPRN PRN PRN Reason: Insomnia Valganciclovir (Valcyte) 900 mg PO BID [facility] Last Admin: 09/09/17 10:04 Dose: 900 mg
--- NOTE | 2017-09-09 18:58 | PRG ---
DATE OF SERVICE: 09/09/2017 GI INPATIENT DAILY PROGRESS NOTE SUBJECTIVE: Ms. Burnett remains in the hospital, finishing out her IV antiviral medication today wi th plan to transition to p.o. We are called back due to persistence of diarrhea. I spoke with Ms. Natalia sims today. She is not having any abdominal pain, but she does continue to feel quite weak. She is having multiple loose bowel movements throughout the day. Still she was having smears of stool ev en in the middle of the night last night. She does say that the Imodium does help, but only temporar kyle. She has been getting this twice per day. OBJECTIVE: VITAL SIGNS: Temperature 98.7, pulse 116, blood pressure 130/69, 92% oxygen saturation on 3 liters b y nasal cannula. GENERAL: Frail, lying in bed comfortably, in no distress, alert and fully oriented. HEART: Regular, tachycardia. LUNGS: Clear to auscultation bilaterally. ABDOMEN: Soft and nontender to palpation. EXTREMITIES: No peripheral edema. LABORATORY STUDIES: Hemoglobin 7.3, hematocrit 24.1, platelets 177. Sodium 133, potassium 4.1, BUN 17, creatinine 0.95. Entamoeba histolytica antibody is negative. Urine histoplasma antigen was nega tive. Her immunostains on the colon biopsies came back significantly positive for CMV, confirming CM V colitis. ASSESSMENT AND PLAN: 1. Cytomegalovirus colitis. 2. Cytomegalovirus esophagitis. 3. Cytomegalovirus viremia. 4. Ongoing diarrhea, secondary to cytomegalovirus colitis. I had a long discussion with the patient. It is difficult to predict symptomatic improvement in this context. She is receiving appropriate therapy for her CMV colitis. I will go ahead and recheck sto ol for C. difficile just to rule out superimposed C. diff infection, given that she has received anti biotics and has been in the hospital for so long. Continue with antiviral treatment plan per Infecti ous Disease recommendations. Otherwise, continue supportive care and symptomatic therapy as you are doing. The Imodium could be given up to 4 times per day.
[2017-09-09] MEDS: Magnesium Oxide 400 MG TAB PO SCH (21:04)
[2017-09-09] MEDS: 1/2 NS w/KCL 20 mEq 1,000 ML IV SCH (21:52)
[2017-09-10 05:12] LABS: Hemoglobin 7.6 g/dL (12.0-16.0); Platelet Count 197 thou/uL (130-400)
[2017-09-10 05:28] LABS: Albumin 2.3 g/dL (3.4-4.8); Anion Gap 12 mmol/L (10-20); BUN (Urea Nitrogen) 17 mg/dL (9.8-20.1); BUN/Creatinine Ratio 17.89; Calc. Creatinine Clearance 37 mL/min (70-130); Calcium 7.4 mg/dL (7.8-10.44); Carbon Dioxide 15 mmol/L (23-31); Chloride 110 mmol/L (98-107); Estimated GFR-MDRD 58; Glucose 75 mg/dL (80-115); Phosphorus 3.8 mg/dL (2.3-4.7); Potassium 4.2 mmol/L (3.5-5.1); Sodium 133 mmol/L (136-145)
[2017-09-10] MEDS: Ciprofloxacin 500 MG TAB PO SCH ×2 (05:33→21:25)
[2017-09-10] MEDS: Loperamide HCl 2 MG CAP PO PRN ×3 (05:33→17:40)
[2017-09-10] MEDS: Acetaminophen 325 MG TAB PO PRN ×2 (05:34→11:27)
[2017-09-10] MEDS: Ondansetron HCl/PF 4 MG/2 ML Vial IVP PRN ×3 (05:40→18:46)
--- NOTE | 2017-09-10 07:32 | PRG ---
DATE OF SERVICE: 09/10/2017 INPATIENT PROGRESS NOTE SUBJECTIVE: Patient continues to feel weak, fatigued. Has remained inhouse since I last saw her. PHYSICAL EXAMINATION: VITAL SIGNS: Stable, afebrile. Urine output over 1 liter of clear yellow. ABDOMEN: Soft, nontender, nondistended, I did remove her Villanueva catheter at bedside for a voiding tri al. PERTINENT LABORATORY DATA: Hemoglobin 7.6, creatinine 0.95, admitting creatinine is 2.24. IMPRESSION AND PLAN: 1. Ms. Burnett is a 72-year-old female currently admitted for deconditioned status, CMV esophagitis colitis with ongoing diarrhea. 2. History of lupus, on chronic steroids. 3. Acute renal insufficiency, improved. 4. 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 5. No prior history of urinary retention, presented this admission with PVR of 700 mL. She was allo wed to have her bladder rest due to acute retention with high PVR. Voiding trial initiated today. S trict instructions to nursing staff regarding prompting patient to void up and commode every 6 hours, bladder scan every 6 hours if PVR greater than 250 mL, CIC would be advised. Continue ciprofloxacin for now. DISPOSITION: Pending due to severe deconditioned status and ongoing physical therapy.
[2017-09-10] MEDS: Megestrol Acetate 800 MG/20 ML UDCUP PO SCH (08:57)
[2017-09-10] MEDS: Amlodipine 10 MG TAB PO SCH (08:59)
[2017-09-10] MEDS: predniSONE 20 MG TAB PO SCH (08:59)
[2017-09-10] MEDS: Calcitriol 0.25 MCG CAP PO SCH (09:00)
[2017-09-10] MEDS: Magnesium Oxide 400 MG TAB PO SCH ×2 (09:00→21:25)
[2017-09-10] MEDS: K-Phos Neutral 250 MG TAB PO SCH ×4 (09:00→21:29)
[2017-09-10] MEDS: predniSONE 5 MG TAB PO SCH (09:00)
[2017-09-10] MEDS: Hydroxychloroquine Sulfate 200 MG TAB PO SCH (09:00)
[2017-09-10] MEDS: Nystatin 500,000 UNITS/5 ML UDCUP SSW SCH (09:01)
[2017-09-10] MEDS: Mycophenolate 250 MG CAP PO SCH ×2 (10:20→21:25)
--- NOTE | 2017-09-10 16:32 | PRG ---
DATE OF SERVICE: 09/10/2017 This is GI inpatient progress note. SUBJECTIVE: Ms. Burnett is feeling about the same today. She continues to feel weak. She will hav e loose bowel movements, whenever she tries to get up and participate in physical therapy. Her appet ite has been a little bit better. There is no abdominal pain. PHYSICAL EXAMINATION: VITAL SIGNS: Temperature 98.3, pulse 114, blood pressure 123/77, 95% oxygen saturation on 3 liters n laisha cannula. GENERAL: Frail, no acute distress. HEART: Regular, tachycardia. LUNGS: Clear to auscultation bilaterally. ABDOMEN: Soft and nontender. EXTREMITIES: No peripheral edema. LABORATORY STUDIES: Hemoglobin 7.6, hematocrit 24.7, platelets 197. Sodium 133, potassium 4.2, BUN 17, creatinine 0.95. ASSESSMENT AND PLAN: 1. CMV colitis. 2. Diarrhea, secondary to CMV colitis. I again discussed with the patient that we will expect sympt omatic improvement in the diarrhea to continue, but this may indeed be very slow and it is difficult to predict the rate at which this will improve. Continue with antiviral treatment per Infectious Dis ease recommendations. Otherwise, continue with the Imodium, which does seem to be helping. Please call back with questions or concerns.
[2017-09-10] MEDS: 1/2 NS w/KCL 20 mEq 1,000 ML IV SCH (17:35)
--- NOTE | 2017-09-10 23:24 | PDOC.PN ---
- Subjective Encounter Start Date: 09/10/17 Encounter Start Time: 11:00 Patient seen and examined. Diarrhea +. No overnight events - Objective MAR Reviewed: Yes Vital Signs & Weight: Vital Signs (12 hours) Temp Pulse Resp BP Pulse Ox 09/10/17 22:24 97.6 F 75 18 93 L 09/10/17 20:00 97.6 F 75 18 139/77 93 L Weight Admit Weight 90 lb Weight 94 lb 9.6 oz I&O: 09/09/17 09/10/17 09/11/17 06:59 06:59 06:59 Intake Total 1000 1170 Output Total 250 1050 750 Balance -250 -50 420 Result Diagrams: 09/11/17 03:56 09/10/17 03:53 Phys Exam - Physical Examination Constitutional: NAD Respiratory: no wheezing, no rhonchi Cardiovascular: RRR, no rub Gastrointestinal: soft, non-tender, positive bowel sounds Musculoskeletal: no edema Neurological: moves all 4 limbs Dx/Plan - Plan DVT proph w/SCDs IMPRESSION: 1. CMV Esophagitis/Colitis with ongoing diarrhea 2. Electrolyte abn - hypokalemia/hypomagnesemia 3. SLE on chronic steroids 4. LUIS FELIPE on CKD 2 5. Klebsiella UTI/Empysematous Pyelonephritis - on Cipro 6. Urinary retention s/p kerr catheter 7. Anemia - On Epogen as outpt 6. Other issues per previous notes PLAN: * Cont IVF due to poor appetite * Kerr dced * Cont bladder scan per Urology * GI input appreciated * AM labs * Cont current meds as below Review of Systems - Review of Systems Constitutional: weakness (generalized) Respiratory: negative: Cough, Dry, Shortness of Breath, Hemoptysis, SOB with Excertion, Pleuritic Pain, Sputum, Wheezing Cardiovascular: negative: chest pain, palpitations, orthopnea, paroxysmal nocturnal dyspnea, edema, light headedness Gastrointestinal: Diarrhea. negative: Nausea, Vomiting, Abdominal Pain, Constipation, Melena, Hematochezia - Medications/Allergies Allergies/Adverse Reactions: Allergies Allergy/AdvReac Type Severity Reaction Status Date / Time iron Allergy Severe Rash Verified 08/24/17 22:19 Sulfa (Sulfonamide Allergy Severe Rash Verified 08/24/17 22:19 Antibiotics) magnesium sulfate Allergy Verified 08/29/17 16:23 sulfate Allergy Uncoded 08/29/17 13:06 Medications: Current Medications Acetaminophen (Tylenol) 650 mg PO Q4H PRN PRN Reason: Headache/Fever or Pain Last Admin: 09/10/17 11:27 Dose: 650 mg Albuterol/Ipratropium (Duoneb) 3 ml NEB [id number] PRN PRN Reason: SOB &/or Wheezing Amlodipine Besylate (Norvasc) 10 mg PO DAILY [facility] Last Admin: 09/10/17 08:59 Dose: 10 mg Artificial Tears (Tears Naturale) 0 drop EA EYE PRN PRN PRN Reason: Dry Eyes Calcitriol (Rocaltrol) 0.25 mcg PO MWF [facility] Last Admin: 09/10/17 09:00 Dose: 0.25 mcg Cholecalciferol (Vitamin D3) 5,000 units PO DAILY [facility] Last Admin: 09/10/17 08:58 Dose: 5,000 units Ciprofloxacin (Cipro) 500 mg PO 0600,1999 [facility] Last Admin: 09/10/17 21:25 Dose: 500 mg Diphenhydramine HCl (Benadryl) 25 mg PO Q6H PRN PRN Reason: Itching & Insomnia Guaifenesin (Robitussin Sf) 200 mg PO Q4H PRN PRN Reason: Cough Hydralazine HCl (Apresoline) 10 mg SLOW IVP Q4H PRN PRN Reason: Systolic BP > 180 Hydroxychloroquine Sulfate (Plaquenil) 300 mg PO DAILY [facility] Last Admin: 09/10/17 09:00 Dose: 300 mg Potassium Chloride/Sodium Chloride (1/2 Ns W/Kcl 20 Meq) 1,000 mls @ 50 mls/hr IV .Q20H [facility] Last Admin: 09/10/17 17:35 Dose: 1,000 mls Loperamide HCl (Imodium) 2 mg PO PRN PRN PRN Reason: Diarrhea/Loose Stools Last Admin: 09/10/17 17:40 Dose: 2 mg Magnesium Oxide (Magnesium Oxide) 400 mg PO BID [facility] Last Admin: 09/10/17 21:25 Dose: 400 mg Megestrol Acetate (Megace) 800 mg PO DAILY [facility] Last Admin: 09/10/17 08:57 Dose: 800 mg Metoprolol Succinate (Toprol Xl) 100 mg PO DAILY [facility] Last Admin: 09/10/17 08:58 Dose: 100 mg Mineral Oil/White Petrolatum (Eucerin Cream) 0 gm TOP BIDPRN PRN PRN Reason: Dry Skin Mycophenolate Mofetil (Cellcept) 1,000 mg PO BID [facility] Last Admin: 09/10/17 21:25 Dose: 1,000 mg Nystatin (Mycostatin) 200,000 units SSW DAILY [facility] Last Admin: 09/10/17 09:01 Dose: 200,000 units Ondansetron HCl (Zofran Odt) 4 mg PO Q6H PRN PRN Reason: Nausea/Vomiting Last Admin: 09/07/17 09:11 Dose: 4 mg Ondansetron HCl (Zofran) 4 mg IVP Q6H PRN PRN Reason: Nausea/Vomiting Last Admin: 09/10/17 18:46 Dose: 4 mg Pantoprazole Sodium (Protonix) 40 mg PO DAILY [facility] Last Admin: 09/10/17 09:00 Dose: 40 mg Phenol (Chloraseptic [place] 180 Ml Bot) 0 ml PO PRN PRN PRN Reason: Sore Throat Phosphorus (Kphos Neutral) 500 [facility]ID[facility] Last Admin: 09/10/17 21:29 Dose: Not Given Prednisone (Prednisone) 20 mg PO [facility] Last Admin: 09/10/17 08:59 Dose: 20 mg Prednisone (Prednisone) 5 mg PO [facility] Stop: 09/14/17 08:01 Last Admin: 09/10/17 09:00 Dose: 5 mg Sodium Chloride (Flush - Normal Saline) 10 ml IVF Q12HR [facility] Last Admin: 09/10/17 21:29 Dose: Not Given Sodium Chloride (Flush - Normal Saline) 10 ml IVF PRN PRN PRN Reason: Saline Flush Last Admin: 08/29/17 20:56 Dose: 10 ml Temazepam (Restoril) 15 mg PO HSPRN PRN PRN Reason: Insomnia Valganciclovir (Valcyte) 900 mg PO [facility]
[2017-09-11] MEDS: Loperamide HCl 2 MG CAP PO PRN ×2 (02:25→14:27)
[2017-09-11 04:54] LABS: Hemoglobin 7.3 g/dL (12.0-16.0); Platelet Count 201 thou/uL (130-400)
[2017-09-11] MEDS: Ondansetron HCl/PF 4 MG/2 ML Vial IVP PRN ×2 (05:53→14:27)
[2017-09-11] MEDS: Ciprofloxacin 500 MG TAB PO SCH (05:53)
[2017-09-11] MEDS: Acetaminophen 325 MG TAB PO PRN (05:59)
[2017-09-11 07:57] VITALS: BP 127/70; TEMP 98.2
[2017-09-11] MEDS: predniSONE 5 MG TAB PO SCH (08:00)
[2017-09-11] MEDS: K-Phos Neutral 250 MG TAB PO SCH ×3 (08:00→17:10)
[2017-09-11] MEDS: predniSONE 20 MG TAB PO SCH (08:00)
--- NOTE | 2017-09-11 08:22 | PRG ---
DATE OF SERVICE: 09/11/2017 SUBJECTIVE: No change in clinical status. Daughter at bedside. OBJECTIVE: VITAL SIGNS: Vital signs are stable. I's and O's reviewed. The patient requiring CICs due to PVR approximately 400-500 mL. The patient is refusing to get out of bed to a bedside commode. Has had issues with physical therapy as well and noncooperative. ABDOMEN: Soft. No rigidity, no rebound. LABORATORY DATA: Hemoglobin of 7.3, creatinine has been stable. IMPRESSION AND PLAN: 1. A 72-year-old female, deconditioned status admitted for CMG esophagitis, colitis, ongoing diarrhea. 2. History of lupus. 3. History of renal insufficiency, improved. 4. History of angiomyolipoma of the left kidney. 5. Chronic renal insufficiency. 6. History of embolization of the left angiomyolipoma. 7. 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 Klebsiella in urine culture. 8. Current admission with PVR of 700 mL, with no prior history of urinary retention. The patient has continued to be bladder rehab with prompting to void every 6 hours, bladder scan will be performed around the clock every 6 hours to be catheterized for PVR greater than 250 mL. Iong discussion with the patient at bedside, as she is not cooperative with physical therapy as well as getting up to a commode. I informed the patient that she was to be out of bed to a bedside commode with nursing assist. She verbalizes understanding. Await disposition for rehab. From a urologic perspective, she can be discharged to rehab likely will require ongoing clean intermittent catheterization until she regains her strength back. Continue ciprofloxacin for now. MTDD
[2017-09-11] MEDS: Amlodipine 10 MG TAB PO SCH (10:00)
[2017-09-11] MEDS: Magnesium Oxide 400 MG TAB PO SCH (10:00)
[2017-09-11] MEDS: Hydroxychloroquine Sulfate 200 MG TAB PO SCH (10:00)
[2017-09-11] MEDS: Megestrol Acetate 800 MG/20 ML UDCUP PO SCH (10:00)
[2017-09-11] MEDS: Nystatin 500,000 UNITS/5 ML UDCUP SSW SCH (10:08)
[2017-09-11] MEDS: Mycophenolate 250 MG CAP PO SCH (12:16)
[2017-09-11] MEDS: 1/2 NS w/KCL 20 mEq 1,000 ML IV SCH (14:18)
--- NOTE | 2017-09-11 14:40 | PQF ---
CLINICAL DOCUMENTATION IMPROVEMENT CLARIFICATION FORM: ICD-10 Updated PLEASE DO AN ADDENDUM TO THE PROGRESS NOTE WITH ANY DOCUMENTATION UPDATES OR ADDITIONS AND CARRY THROUGH TO DC SUMMARY. THANK YOU. DATE: 09/11/17 ATTN: Dr. Palm Please exercise your independent, professional judgment in responding to the clarification form. Clinical indicators are provided on the bottom of this form for your review Please check appropriate box(s) to clarify if the following diagnosis has been ruled in our ruled out: SEPSIS ( PN: 08/25-09/05 & 09/07) [ ] Ruled in diagnosis [ ] Continue to treat [ ] Resolved [ ] Ruled out diagnosis [ ] Cannot rule out diagnosis [ ] Other diagnosis [ ] Unable to determine In addition, please specify: Present on Admission (POA): [ ] Yes [ ] No [ ] Unable to determine For continuity of documentation, please document condition throughout progress notes and discharge summary. Thank You. CLINICAL INDICATORS - SIGNS / SYMPTOMS / LABS H&P: URINARY TRACT INFECTION. I DO NOT THINK SHE IS SEPTIC. HER WHITE COUNT IS UP SECONDARY TO STEROIDS, THOUGH SHE DOES HAVE 24% BANDS. LUIS FELIPE: CREATININE IS UP TO 2.24 PN 08/25 - 09/05 & 09/07: SEPSIS PN 09/08, 09/09 & 09/10: CMV ESOPHAGITIS/ COLITIS W/ ONGOING DIARRHEA SLE ON CHRONIC STEROIDS LUIS FELIPE ON CKD 2 KLEBSIELLA UTI/ EMPHYSEMATOUS PYELONEPHRITIS- ON CIPRO RISKS: H&P: HX OF SLE, RHEUMATOID ARTHRITIS, OSTEOPOROSIS FROM CHRONIC STEROID USE & SECONDARY ADRENAL INSUFFICIENCY. SEVERE PROTEIN-CALORIE MALNUTRITION. TREATMENTS: CPOE 08/25: CEFEPIME 1GM IV. DC'D 08/26. CPOE 08/26: LEVAQUIN 500MG IV Q 24 HRS. DC'D 09/01 CPOE 09/02: CIPRO 500MG PO 0600, 2000 Thank you, Ayse (This form is maintained as a part of the permanent medical record) 2014 [employer] All Rights Reserved Ayse Patel RN, BSN [email or web address] Office: [phone] [facility]
--- NOTE | 2017-09-11 20:21 | PDOC.PN ---
- Subjective Encounter Start Date: 09/11/17 Encounter Start Time: 17:00 - Objective MAR Reviewed: Yes Vital Signs & Weight: Vital Signs (12 hours) Pulse BP 09/11/17 10:00 68 127/70 Weight Admit Weight 90 lb Weight 94 lb 9.6 oz I&O: 09/10/17 09/11/17 09/12/17 06:59 06:59 06:59 Intake Total 1000 2000 850 Output Total 1050 1920 475 Balance -50 80 375 Result Diagrams: 09/11/17 03:56 09/10/17 03:53 Phys Exam - Physical Examination Constitutional: NAD Respiratory: no wheezing, no rhonchi Cardiovascular: RRR, no rub Dx/Plan - Plan DVT proph w/SCDs IMPRESSION: 1. CMV Esophagitis/Colitis with ongoing diarrhea 2. Electrolyte abn - hypokalemia/hypomagnesemia 3. SLE on chronic steroids 4. LUIS FELIPE on CKD 2 5. Klebsiella UTI/Empysematous Pyelonephritis - on Cipro 6. Urinary retention s/p kerr catheter 7. Anemia - On Epogen as outpt 6. Other issues per previous notes PLAN: * Cont IVF due to poor appetite * Cont bladder scan per Urology * DC to Rehab today Review of Systems - Review of Systems Respiratory: negative: Cough, Dry, Shortness of Breath, Hemoptysis, SOB with Excertion, Pleuritic Pain, Sputum, Wheezing Cardiovascular: negative: chest pain, palpitations, orthopnea, paroxysmal nocturnal dyspnea, edema, light headedness - Medications/Allergies Allergies/Adverse Reactions: Allergies Allergy/AdvReac Type Severity Reaction Status Date / Time iron Allergy Severe Rash Verified 08/24/17 22:19 Sulfa (Sulfonamide Allergy Severe Rash Verified 08/24/17 22:19 Antibiotics) magnesium sulfate Allergy Verified 08/29/17 16:23 sulfate Allergy Uncoded 08/29/17 13:06 Medications: Current Medications Acetaminophen (Tylenol) 650 mg PO Q4H PRN PRN Reason: Headache/Fever or Pain Last Admin: 09/11/17 05:59 Dose: 650 mg Albuterol/Ipratropium (Duoneb) 3 ml NEB [id number] PRN PRN Reason: SOB &/or Wheezing Amlodipine Besylate (Norvasc) 10 mg PO DAILY CYNDIE Last Admin: 09/11/17 10:00 Dose: 10 mg Artificial Tears (Tears Naturale) 0 drop EA EYE PRN PRN PRN Reason: Dry Eyes Calcitriol (Rocaltrol) 0.25 mcg PO MWF [facility] Last Admin: 09/10/17 09:00 Dose: 0.25 mcg Cholecalciferol (Vitamin D3) 5,000 units PO DAILY [facility] Last Admin: 09/11/17 10:00 Dose: 5,000 units Cholestyramine Resin (Questran Light) 4 gm PO 1000,2200 [facility] Ciprofloxacin (Cipro) 500 mg PO 0600,1999 [facility] Last Admin: 09/11/17 05:53 Dose: 500 mg Diphenhydramine HCl (Benadryl) 25 mg PO Q6H PRN PRN Reason: Itching & Insomnia Guaifenesin (Robitussin Sf) 200 mg PO Q4H PRN PRN Reason: Cough Hydralazine HCl (Apresoline) 10 mg SLOW IVP Q4H PRN PRN Reason: Systolic BP > 180 Hydroxychloroquine Sulfate (Plaquenil) 300 mg PO DAILY [facility] Last Admin: 09/11/17 10:00 Dose: 300 mg Potassium Chloride/Sodium Chloride (1/2 Ns W/Kcl 20 Meq) 1,000 mls @ 50 mls/hr IV .Q20H [facility] Last Admin: 09/11/17 14:18 Dose: 1,000 mls Loperamide HCl (Imodium) 2 mg PO PRN PRN PRN Reason: Diarrhea/Loose Stools Last Admin: 09/11/17 14:27 Dose: 2 mg Magnesium Oxide (Magnesium Oxide) 400 mg PO BID [facility] Last Admin: 09/11/17 10:00 Dose: 400 mg Megestrol Acetate (Megace) 800 mg PO DAILY [facility] Last Admin: 09/11/17 10:00 Dose: 800 mg Metoprolol Succinate (Toprol Xl) 100 mg PO DAILY [facility] Last Admin: 09/11/17 10:00 Dose: 100 mg Mineral Oil/White Petrolatum (Eucerin Cream) 0 gm TOP BIDPRN PRN PRN Reason: Dry Skin Mycophenolate Mofetil (Cellcept) 1,000 mg PO BID [facility] Last Admin: 09/11/17 12:16 Dose: 1,000 mg Nystatin (Mycostatin) 200,000 units SSW DAILY [facility] Last Admin: 09/11/17 10:08 Dose: 200,000 units Ondansetron HCl (Zofran Odt) 4 mg PO Q6H PRN PRN Reason: Nausea/Vomiting Last Admin: 09/07/17 09:11 Dose: 4 mg Ondansetron HCl (Zofran) 4 mg IVP Q6H PRN PRN Reason: Nausea/Vomiting Last Admin: 09/11/17 14:27 Dose: 4 mg Pantoprazole Sodium (Protonix) 40 mg PO DAILY [facility] Last Admin: 09/11/17 10:00 Dose: 40 mg Phenol (Chloraseptic [place] 180 Ml Bot) 0 ml PO PRN PRN PRN Reason: Sore Throat Phosphorus (Kphos Neutral) 500 mg PO QID-[facility] Last Admin: 09/11/17 17:10 Dose: Not Given Prednisone (Prednisone) 20 mg PO [facility] Last Admin: 09/11/17 08:00 Dose: 20 mg Prednisone (Prednisone) 5 mg PO [facility] Stop: 09/14/17 08:01 Last Admin: 09/11/17 08:00 Dose: 5 mg Sodium Chloride (Flush - Normal Saline) 10 ml IVF Q12HR [facility] Last Admin: 09/11/17 10:10 Dose: Not Given Sodium Chloride (Flush - Normal Saline) 10 ml IVF PRN PRN PRN Reason: Saline Flush Last Admin: 08/29/17 20:56 Dose: 10 ml Temazepam (Restoril) 15 mg PO HSPRN PRN PRN Reason: Insomnia Valganciclovir (Valcyte) 900 mg PO [facility] Last Admin: 09/11/17 08:00 Dose: 900 mg
--- NOTE | 2017-09-11 20:48 | DIS ---
DATE OF DISCHARGE: 09/11/2017 DISCHARGE DISPOSITION: To inpatient rehabilitation. Please refer to the discharge summary dictated by Dr. New for further details. Due to generalized weakness and continued diarrhea, the patient remained in the hospital. She will b e discharged to inpatient rehabilitation today. A Villanueva catheter was discontinued yesterday. She wi ll continue bladder scan every 4 hourly. In and out urinary catheterization if bladder scan is more than 250 mL. She can take Imodium up to 4 times a day. She will start cholestyramine (Questran) ton ight to see if it helps with her diarrhea. She will continue ciprofloxacin per Urology for now. [facility] physician is advised to follow up with Dr. Hernandez as well as Dr. Phillips on antibiotic d uration. CMV DNA PCR is recommended next week. Primary care physician advised to follow. The patient was seen and examined on the day of discharge. For final diagnoses, please refer to the discharge summary.
[2017-09-11] MEDS ORDERED: Cholestyramine/Aspartame 4 gm Packet PO SCH (22:00)
--- NOTE | 2017-11-01 13:43 | EKG ---
Test Reason : Blood Pressure : / mmHG Vent. Rate : 123 BPM Atrial Rate : 123 BPM P-R Int : 130 ms QRS Dur : 110 ms QT Int : 294 ms P-R-T Axes : 068 093 026 degrees QTc Int : 420 ms Sinus tachycardia Low voltage QRS Right bundle branch block Abnormal ECG Confirmed by CHANO REYES MD ([id number]) on 11/01/2017 1:42:55 PM Referred By: Confirmed By:CHANO REYES MD
== END 2017-09-11 19:25 | DRG 871 ==
LOC: ERS 16:10 → T4-A 22:11 → OBSVTOIN 08-25 08:02 → 2NO 08-26 04:16 → ONC 08-29 18:31 → T4-A 09-05 18:38
PROVIDERS: ADMIT Family Medicine; ATTEND Family Medicine
PROC: 0DBK8ZX Excision of Ascending Colon, Via Natural or Artificial Opening Endoscopic, Diagnostic (ICD-10-PCS; principal; 2017-08-26)
PROC: 0DBL8ZX Excision of Transverse Colon, Via Natural or Artificial Opening Endoscopic, Diagnostic (ICD-10-PCS; 2017-08-26)
PROC: 0DBN8ZX Excision of Sigmoid Colon, Via Natural or Artificial Opening Endoscopic, Diagnostic (ICD-10-PCS; 2017-08-26)
PROC: 0DBM8ZX Excision of Descending Colon, Via Natural or Artificial Opening Endoscopic, Diagnostic (ICD-10-PCS; 2017-08-26)
PROC: 0DB58ZX Excision of Esophagus, Via Natural or Artificial Opening Endoscopic, Diagnostic (ICD-10-PCS; 2017-08-26)
PROC: 0DB88ZX Excision of Small Intestine, Via Natural or Artificial Opening Endoscopic, Diagnostic (ICD-10-PCS; 2017-08-26)
DX: A41.9 Sepsis, unspecified organism (principal); J96.01 Acute respiratory failure with hypoxia; E43 Unspecified severe protein-calorie malnutrition; J90 Pleural effusion, not elsewhere classified; B25.9 Cytomegaloviral disease, unspecified; N17.9 Acute kidney failure, unspecified; K22.10 Ulcer of esophagus without bleeding; E83.42 Hypomagnesemia; L89.153 Pressure ulcer of sacral region, stage 3; K63.3 Ulcer of intestine; E87.2 Acidosis; N39.0 Urinary tract infection, site not specified; J98.11 Atelectasis; E87.1 Hypo-osmolality and hyponatremia; K62.6 Ulcer of anus and rectum; Z68.1 Body mass index [BMI] 19.9 or less, adult; M32.9 Systemic lupus erythematosus, unspecified; E86.0 Dehydration; M06.9 Rheumatoid arthritis, unspecified; M81.0 Age-related osteoporosis without current pathological fracture; K25.9 Gastric ulcer, unspecified as acute or chronic, without hemorrhage or perforation; B96.1 Klebsiella pneumoniae [K. pneumoniae] as the cause of diseases classified elsewhere; E87.6 Hypokalemia; R33.9 Retention of urine, unspecified; R62.7 Adult failure to thrive; K21.9 Gastro-esophageal reflux disease without esophagitis; M19.90 Unspecified osteoarthritis, unspecified site; D64.9 Anemia, unspecified; E78.5 Hyperlipidemia, unspecified; K20.8 Other esophagitis; I12.9 Hypertensive chronic kidney disease with stage 1 through stage 4 chronic kidney disease, or unspecified chronic kidney disease; N18.3 Chronic kidney disease, stage 3 (moderate); K58.0 Irritable bowel syndrome with diarrhea; K52.9 Noninfective gastroenteritis and colitis, unspecified
CPT/HCPCS: 36415; 36416; 51701; 71045; 74176; 80048; 80053; 80069; 81003; 81015; 82010; 82274; 82533; 82805; 83605; 83630; 83690; 83735; 84100; 85014; 85018; 85025; 85049; 86140; 86480; 86753; 87045; 87046; 87077; 87086; 87186; 87324; 87328; 87329; 87337; 87385; 87449; 87497; 87899; 88305; 88312; 88313; 88341; 88342; 93005; 93010; 93306; 94760; 96361; 96374; A4216; A4353; G8978-GP-CL; G8978-GP-CM; G8979-GP-CI; G8987-GO-CM; G8988-GO-CK; J0131; J0692; J0696; J1100; J1570; J1940; J1956; J2405; J2704; J3475; J3480; J7042; J7050; J7070; J7506; J7517; J8499; Q0162; Q4081; S0028

== ENCOUNTER → 2017-09-16 | Day surgery (SDC) | payer MEDICARE, OTHER ==
[~2017-09-16] MED LIST: Heparin 1,000 UNITS/ML VIAL ONE
--- NOTE | 2017-09-16 10:50 | SPC ---
PERIPHERAL INSERTION OF CENTRAL CATHETER: Indication: Requiring antibiotic therapy. Exposure: 1 minute fluoro time, 2331 mGy*cm^2. FINDINGS: A dual-lumen 5 Uzbek PICC line was placed into the left basilic vein using ultrasound guidance with fluoroscopic confirmation. The tip is positioned in the SVC. PROCEDURE NOTE: Left upper extremity was prepped and draped in a sterile manner. Ultrasound was used to assess the ve ins in the left upper extremity. The basilic vein in the proximal humerus was chosen for puncture. Wi re was placed under local anesthesia with lidocaine with ultrasound guidance. Wire was advanced into the vein and the tip of the wire was advanced into the SVC. Catheter length was then measured and cut . Sheath placed over the wire. Catheter was then advanced over the wire. Peel-away sheath was removed . Wire was removed. The catheter was flushed and secured with sterile dressing. There were no problem s or complications. POS: [facility]
== END ==
LOC: SPEC 08:27
PROVIDERS: ATTEND Physical Medicine & Rehabilitation
PROC: 02HV33Z Insertion of Infusion Device into Superior Vena Cava, Percutaneous Approach (ICD-10-PCS; principal; 2017-09-16)
DX: M32.9 Systemic lupus erythematosus, unspecified (principal); N18.9 Chronic kidney disease, unspecified; M06.9 Rheumatoid arthritis, unspecified; M81.0 Age-related osteoporosis without current pathological fracture; Z88.2 Allergy status to sulfonamides; Z88.8 Allergy status to other drugs, medicaments and biological substances
CPT/HCPCS: 36569; C1751

== ENCOUNTER 2017-09-17 19:32 | Inpatient (IN) | payer MEDICARE, OTHER ==
[2017-09-17 20:30] LABS: INR-International Normal Ratio 1.1; PTT 37.7 SEC (22.9-36.1); Prothrombin Time 14.5 SEC (12.0-14.7)
[2017-09-17 20:50] LABS: Band 12 % (5-11); Burr Cells MARKED = >16 cells (100X) (0-1/hpf); Hemoglobin 6.7 g/dL (12.0-16.0); Large Platelets SLIGHT; Lymphocytes 16 % (21-51); MDiff Complete? YES; Mean Corpuscular HGB CONC 31.3 g/dL (32.0-36.0); Mean Corpuscular Hemoglobin 29.4 pg (27.0-31.0); Monocytes 12 % (0-10); Neutrophil 60 % (42-75); Nucleated RBC 3 % (0); PLT Morphology Comment Appears Decreased; Platelet Count 100 thou/uL (130-400); RBC Distribution Width 17.7 % (11.5-14.5); Red Blood Cell (RBC) Count 2.29 mill/uL (4.20-5.40); White Blood Cell (WBC) Count 0.7 thou/uL (4.8-10.8)
[2017-09-17 20:54] LABS: CKMB 0.5 ng/mL (0-6.6); Troponin I Less than 0.010 ng/mL (< 0.028)
--- NOTE | 2017-09-17 21:29 | RAD ---
CHEST ONE VIEW 09/17/17 HISTORY: Chest pain. COMPARISON: Chest radiograph 08/29/17. FINDINGS: The PICC is in place. Tip in good position inferior SVC. Layering left effusion. No pneumothorax. Rig ht basilar air space opacity. No acute osseous abnormality. IMPRESSION: 1. Right basilar air space opacity may reflect infection. 2. Layering left effusion. 3. PICC in good position. POS: [facility]
[2017-09-17 21:44] LABS: Bilirubin Negative (Negative); Blood, Urine Large (Negative); Clarity CLOUDY (Clear); Glucose, Urine (Dipstick) Negative (Negative); Leukocyte Small (Negative); Nitrite Negative (Negative); Protein, Urine (Dipstick) 30 mg/dL (Neg-Trace); Specific Gravity, Urine 1.017 (1.002-1.036); Urobilinogen 0.2 mg/dL (0.2-1.0)
[2017-09-17 21:46] LABS: Bacteria/HPF 4+ HPF (None Seen); Pathc Cast-AUWi Flag 2.84 (0-2.49); RBC/HPF GREATER THAN 50-TNTC HPF (0-3); Squamous Epithelial 0-3 HPF (0-3); WBC/HPF 21-50 HPF (0-3)
[2017-09-17 21:55] LABS: Hyaline Casts/LPF 7-10 HYALINE CAST LPF (0-3 Hyaline); Other Casts/LPF 0-3 WBC CASTS LPF (0-3 Hyaline)
[2017-09-17] MEDS ORDERED: Loratadine 10 MG TAB PO PRN (23:35)
[2017-09-17] MEDS ORDERED: Senokot 8.6 MG TAB PO PRN (23:35)
[2017-09-17] MEDS ORDERED: Ondansetron HCl/PF 4 MG/2 ML Vial IVP PRN (23:35)
[2017-09-17] MEDS ORDERED: Bisacodyl 5 MG TAB PO PRN (23:35)
[2017-09-17] MEDS ORDERED: Calcium Carbonate 500 MG ChewTAB PO PRN (23:35)
[2017-09-17] MEDS ORDERED: Diabetic Tussin 200 MG/10 ML UDCUP PO PRN (23:35)
[2017-09-17] MEDS ORDERED: Nitroglycerin 0.4 MG TAB (25 Tab Bottle) SL PRN (23:35)
[2017-09-17] MEDS ORDERED: cloNIDine 0.1 MG TAB PO PRN (23:35)
[2017-09-17] MEDS ORDERED: Benzonatate 100 MG CAP PO PRN (23:35)
[2017-09-17] MEDS ORDERED: hydrALAZINE 20 MG/ML VIAL SLOW IVP PRN (23:35)
[2017-09-17] MEDS ORDERED: Furosemide 20 MG/2 ML VIAL SLOW IVP SCH (23:45)
[2017-09-18] MEDS ORDERED: Pantoprazole 40 MG VIAL IVP SCH (00:15)
[2017-09-18] MEDS ORDERED: Hydrocortisone Sod Succ/PF 100 mg/2 ml Vial IVP SCH (00:15)
[2017-09-18] MEDS ORDERED: Hydrocortisone Sod Succ/PF 50 MG in Sodium Chloride 0.9% 50 ML IVPB SCH (00:15)
--- NOTE | 2017-09-18 00:59 | HP ---
DATE OF ADMISSION: 09/17/2017 PRIMARY CARE PHYSICIAN: Dr. Rylan Salcedo. CHIEF COMPLAINT: Worsening shortness of breath and weakness. HISTORY OF PRESENT ILLNESS: Ms. 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 History is mainly obtained by the chart review and further was discussed with the patient' s daughter present in the room. The patient is not able to provide much of the history because of sh ortness of breath and because of the nonrebreather mask she has on at this time. Chart has been reviewed in detail. She was recently admitted to our facility first in July for de hydration and acute renal insufficiency then readmitted in August 2017. At this hospitalization, s he was admitted for diarrhea and was found to have CMV colitis with ulcerations and EGD and colonosco py by Dr. Whitaker. She was started on ganciclovir initially IV later changed into oral and was eventual ly discharged to [facility]. She was discharged only 6 days ago. According to her daughter, the patient felt good only for a day or so and since then she has been rep eatedly getting weak, tired, and feeling shortness of breath. She reports that her hemoglobin was ch ecked at [facility] and was reportedly lower repeatedly, but no transfusions have been done so far. She was also found to have low white blood cell count, but once again no transfusions were pro vided for unclear reasons. She does report that her drywall worker, Dr. Lundy and her Infectious Dis ease Dr. Phillips were consulted from the [facility]. Nevertheless, she was sent here t o the emergency room yesterday to get a PICC line for unclear reasons. Since she has had the PICC [facility], she has been started on IV fluids of D5 half normal saline at about 100 mL per hour and she came back to the emergency room with the fluids running. Her BNP has elevated to 688 today. Upon presentation, she was visibly short of breath and was put on nonrebreather by the EMS prior to p resentation. Apparently, she was saturating in the low 90s on 5 liters. She has also been complaini ng of some central chest pain for the last few hours along with increased weakness, fatigue, shortnes s of breath and tiredness. She denies any hematochezia, hematemesis or melena. She does have some a bdominal pain and continued diarrhea, but denies any hematuria. Last hospitalization, she had urinar y retention requiring prolonged Villanueva catheterization and Urology consultation. Last hospitalization , she was also treated with ciprofloxacin for a Klebsiella urinary tract infection. She also has history of angiolipoma of kidney, status post embolization in the past. Upon presentation to the emergency room, other than hypoxia: She was found to be significantly anemi c with hemoglobin of 6.7. Looking back in her chart, it seems like she has been anemic since her dis charge from the hospital. On the day of discharge, her hemoglobin was 7.3 on 09/11/2017 and it dropp ed down to 6.4 yesterday prior to admission. She has also been slowly getting neutropenic with WBC c ount falling from 1.6-0.7 today, it was actually lower the last 2 days at 0.5 and then 0.6. She also has platelet count of 100 today which was 107 yesterday. In the emergency room, she has been started on nonrebreather and has received 1 unit of packed RBC. Urine and blood cultures have been obtained. Because somewhat hypotensive with her systolic blood pressure in the low 100s, she is now being admit michelle to [facility]. Current blood pressure is 122/75. She remains on nonrebreather mask. PAST MEDICAL HISTORY: 1. History of SLE, on chronic immunosuppression. 2. CMV colitis, on ganciclovir oral. 3. History of lupus nephritis. 4. History of chronic anemia of kidney disease, on repeated Procrit shots by Dr. Lundy. 5. Chronic kidney disease stage 3. 6. Recurrent urinary tract infection. 7. Urinary retention. 8. History of left angiomyolipoma of the kidneys followed at [facility] by Dr. Blanco since 4. 9. History of ITP. 10. History of adrenal insufficiency followed by Dr. Davis. 11. Systemic lupus erythematosus followed by Dr. Arguelles. 12. Arthritis. PAST SURGICAL HISTORY: 1. Splenectomy. 2. Hysterectomy. 3. Left renal mass biopsy. 4. History of left renal artery embolization in [place], [place] in 2009 for angiomyolipoma and repeat left arterial embolization at [facility] by Dr. Blanco in 11/2013. 5. Cystoscopy. 6. Bladder wash. 7. EGD and colonoscopy during her last hospitalization showing distal esophageal ulcers and scattere d ulcer in the rectum, sigmoid, descending, and transverse colon. SOCIAL HISTORY: She is currently receiving rehabilitation at [facility]. ALLERGIES: IRON and SULFONAMIDES. FAMILY HISTORY: No history of premature coronary artery disease. No history of clotting or bleeding or immune dysfunction. CURRENT MEDICATIONS: As per the most recent discharge summary 1 week ago. She is supposed to be in the following valganciclovir 900 mg daily, prednisone 25 mg daily, Protonix 40 mg daily, Nystatin swi sh and swallow daily, CellCept 2 tablets p.o. b.i.d., Toprol-XL 100 mg daily, Megace 100 mg daily, ma gnesium oxide 400 mg p.o. b.i.d., Plaquenil 1.5 tablet daily, Lasix 20 mg as needed, ciprofloxacin 50 0 mg p.o. b.i.d., amlodipine 10 mg daily, and Questran 4 grams twice a day. REVIEW OF SYSTEMS: The following complete review of systems was negative, unless otherwise mentioned in the HPI or below: Constitutional: Weight loss or gain, ability to conduct usual activities. Sk in: Rash, itching. Eyes: Double vision, pain. ENT/Mouth: Nose bleeding, neck stiffness, pain, te nderness. Cardiovascular: Palpitations, dyspnea on exertion, orthopnea. Respiratory: Shortness of breath, wheezing, cough, hemoptysis, fever or night sweats. Gastrointestinal: Poor appetite, abdom inal pain, heartburn, nausea, vomiting, constipation, or diarrhea. Genitourinary: Urgency, frequenc y, dysuria, nocturia. Musculoskeletal: Pain, swelling. Neurologic/Psychiatric: Anxiety, depressio n. Allergy/Immunologic: Skin rash, bleeding tendency. LABORATORY DATA: Her CBC shows WBCs 0.7 with 60% neutrophils and 12% bands, hemoglobin 6.7, hematocr it 21, platelet count of 100. Her nucleated RBCs are 3. PT, PTT and INR are within normal limits. Serum chemistries: Sodium 133, chloride 108, bicarbonate 20, BUN 27, creatinine 1.35, blood sugar 11 2, lactic acid normal at 2.2, calcium low at 6.8, magnesium high at 3.4. Liver enzymes are within no rmal limits. Cardiac enzymes within normal limit with CK-MB of 0.5, troponin less than 0.010. Her B BUNDLE BREAKER is elevated to 688. Urinalysis shows leukocyte esterase, multiple rbc's, wbc's, +4 bacteria and h yaline casts. Chest x-ray by my review has evidence of right basilar opacity and possibly pulmonary vascular congestion. PHYSICAL EXAMINATION: VITAL SIGNS: Upon presentation, blood pressure 105/53, pulse of 68, respirations 16, saturating 100% on nonrebreather, temperature 98. GENERAL: No acute distress. She does appear pale and weak and is lying quietly in bed with a nonreb reather mask on. Awake, alert, oriented x3. Daughter is at bedside. HEENT: Mucous membrane appears slightly dry, but limited exam due to a nonrebreather. Head is normo cephalic, atraumatic. Pupils equal, reactive to light and accommodation. Extraocular movements are intact. NECK: Supple without any lymphadenopathy, JVD or bruit. CHEST: Clear to auscultation without any wheezing, rales or rhonchi. Some bibasilar crackles are he [place]land. HEART: Rate and rhythm is regular without any murmur, rubs or gallops. ABDOMEN: Tender to palpation diffusely without any guarding, rebound or rigidity. EXTREMITIES: Free of any cyanosis, clubbing, or edema. NEUROLOGIC: Nonfocal. SKIN: Free of any rashes or bruises. Feels warm and dry to touch. PSYCHIATRIC: Normal affect. IMPRESSION AND PLAN: 1. Pancytopenia. The patient is somewhat hypotensive upon presentation. She will be admitted to [facility]. She has been getting 1 unit of packed RBCs and we will repeat H&H and transfuse to keep hemoglob in above 7. Her BNP is elevated, so she is not going to be given any more fluids at this time. Her blood pressure has improved, but we will continue to hold her antihypertensives at this time. Most l ikely, the reason for her pancytopenia is the ganciclovir. She follows up with Dr. Lundy in the tpatient setting and we will request consultations with her. It is unclear if she should stop it jennifer adrian continue it. She might or might not need Neupogen transfusion as well. We will also consult her Infectious Disease doctor, Dr. Phillips for recommendations about the ganciclovir. Her FOBT is negativ e and there is no evidence to suggest any active GI bleed. However, given her history of ulcers due to CMV, we will start her on IV PPI b.i.d. for now. She also has superimposed chronic anemia because of chronic kidney disease which is managed by Dr. Yates. She will continue the Procrit shots as prev iously. We will give her Procrit shot in the morning as well. 2. Sepsis. The patient does seem to have a urinary tract infection and pneumonia also cannot be rul ed out at this time. Because of her prolonged hospitalization recently, she will be covered for hosp ital community-acquired agents. She is also significantly immunosuppressed. We will use cefepime an d vancomycin and await for the final results of the blood and urine culture. Her Klebsiella was rath er resistant to Rocephin and she was sensitive to the levofloxacin because of the hallucinations. On ce again, we will consult Dr. Phillips for further recommendations about her ganciclovir. We will reche ck her CMV viral panel with the PCR to see the improvement or not with the ganciclovir. 3. Hypotension, possibly septic versus hypovolemic shock. We will hold her antihypertensives at thi s time. Her blood pressure has been much improved. 4. Elevated BNP. This might be some of the reason of the patient's shortness of breath along with a nemia. We will give her a small dose of Lasix, especially as she is rather fluid overloaded with IV fluids running since yesterday and now with blood transfusion. Monitor symptoms closely. Her last e chocardiogram was done just last month which showed some diastolic dysfunction with preserved ejectio n fraction of 60-65%. 5. Dyspnea. This is likely secondary to mild fluid overload as well as significant symptomatic anem ia. Possibility of pneumonia also cannot be ruled out at this time. Management as above. She will be weaned off of the nonrebreather to keep saturations above 94% at this time. We will consult [facility] in the morning as well. 6. History of systemic lupus erythematosus and immunosuppression. At this time, we will hold her me dications until morning and resume once she is more stable. She will be continued on CellCept and Pl aquenil. We will give her stress dose steroids given her history of adrenal insufficiency and the fa ct that she is on chronic steroids. We will start her on low dose of Solu-Cortef. 7. High magnesium. We will hold her magnesium supplement for now. 8. Acute on chronic kidney insufficiency. The patient's creatinine seems to be at baseline at this time. 9. History of Cytomegalovirus colitis. Resume ganciclovir for now until further recommended by Dr. Phillips as if it should be stopped on all. We will check the CMV PCR again. 10. Secondary adrenal insufficiency being on chronic steroids. 11. History of benign left renal angiomyolipoma status post embolization twice. Continue to follow up with her oncologist in [facility]. 12. History of rheumatoid arthritis. 13. History of hypertension as above. 14. Severe protein-calorie malnutrition. She will be continued on Ensure 3 times a day. 15. Deep venous thrombosis and gastrointestinal prophylaxis with SCDs and avoid pharmacological prop hylaxis. 16. Add p.r.n. medication. Order and continue supportive care. DISPOSITION: Ms. Burnett is currently being admitted for severe symptomatic anemia as well as pancy topenia with recent diagnosis of CMV esophagitis and colitis. She also seems to be having septic as well as hypovolemic shock. Prognosis seems guarded at this time. Care was discussed in detail with her daughter. She is the primary decision maker. Estimated length of stay is at least more than 2-3 midnights. Further management will depend upon her clinical course.
[2017-09-18] MEDS: Vancomycin HCl 750 MG in Sodium Chloride 0.9% 250 ML 250 ML IVPB SCH (01:17)
[2017-09-18] MEDS: Cefepime 1 GM in Syringe 10 ML SLOW IVP SCH ×2 (01:18→11:55)
[2017-09-18] MEDS: Acetaminophen 325 MG TAB PO PRN ×2 (01:18→13:33)
[2017-09-18 01:44] LABS: Lactic Acid 1.6 mmol/L (0.5-2.2)
[2017-09-18 01:52] LABS: Troponin I Less than 0.010 ng/mL (< 0.028)
[2017-09-18] MEDS ORDERED: Vancomycin HCl 750 MG in Sodium Chloride 0.9% 250 ML 250 ML IVPB SCH (02:00)
[2017-09-18 05:29] LABS: ALT (SGPT) Less than 7 U/L (8-55); AST (SGOT) 5 U/L (5-34); Albumin 2.5 g/dL (3.4-4.8); Alkaline Phosphatase 65 U/L (40-150); Anion Gap 11 mmol/L (10-20); BUN (Urea Nitrogen) 29 mg/dL (9.8-20.1); Bilirubin, Total 0.7 mg/dL (0.2-1.2); Calc. Creatinine Clearance 27 mL/min (70-130); Calcium 7.3 mg/dL (7.8-10.44); Carbon Dioxide 18 mmol/L (23-31); Chloride 111 mmol/L (98-107); Estimated GFR-MDRD 38; Globulin 1.9 g/dL (2.4-3.5); Glucose 106 mg/dL (80-115); Potassium 3.8 mmol/L (3.5-5.1); Protein, Total 4.4 g/dL (6.0-8.3); Sodium 136 mmol/L (136-145)
[2017-09-18 05:33] LABS: Troponin I 0.017 ng/mL (< 0.028)
[2017-09-18 06:29] LABS: Burr Cells MARKED = >16 cells (100X) (0-1/hpf); Hemoglobin 8.4 g/dL (12.0-16.0); Large Platelets SLIGHT; Lymphocytes 24 % (21-51); MDiff Complete? YES; Mean Corpuscular HGB CONC 32.4 g/dL (32.0-36.0); Mean Corpuscular Hemoglobin 29.8 pg (27.0-31.0); Mean Corpuscular Volume 92.1 fl (81.0-99.0); Mean Platelet Volume 10.8 fL (7.4-10.4); Metamyelocyte 4 % (0-0); Monocytes 38 % (0-10); Neutrophil 34 % (42-75); Nucleated RBC 1 % (0); PLT Morphology Comment Appears Decreased; Platelet Count 91 thou/uL (130-400); RBC Distribution Width 16.1 % (11.5-14.5); Red Blood Cell (RBC) Count 2.82 mill/uL (4.20-5.40); White Blood Cell (WBC) Count 1.1 thou/uL (4.8-10.8)
[2017-09-18] MEDS: Hydrocortisone Sod Succ/PF 100 mg/2 ml Vial IVP SCH ×2 (06:41→11:54)
[2017-09-18] MEDS: Epoetin (ESRD) 20,000 UNITS/ML SC SCH (11:51)
--- NOTE | 2017-09-18 12:08 | CON ---
DATE OF CONSULTATION: 09/18/2017 REASON FOR CONSULTATION: Pancytopenia. HISTORY OF PRESENT ILLNESS: Ms. Burnett is a 72-year-old female with a medical history of lupus, chronic anemia and chronic kidney disease who was recently hospitalized here for diarrhea. Stefany hsu was diagnosed with CMV colitis and started on ganciclovir. On 09/02/2017 she presented to the [facility] room from the rehab facility with pancytopenia. The patient has received weekly Procrit inject ions in our clinic for her chronic anemia. Her last injection was on 09/09/2017 when she was an inpa tient in this facility. On arrival, her white blood count was 0.7, hemoglobin 6.7, hematocrit 21.5 a nd a platelet count was 1000. She was started on empiric antibiotics and admitted for pancytopenia. The patient states her diarrhea has significantly improved since starting given ganciclovir. She al so completed a course of Cipro for Klebsiella urinary tract infection. The patient also has a histor y of ITP status post splenectomy. Her platelets have been stable and a normal value until this hospi talization. The patient denies any chest pain or shortness of breath. No abdominal pain. She does have occasional diarrhea. She is weak from her hospitalizations. PAST MEDICAL HISTORY: 1. Lupus. 2. Chronic kidney disease. 3. ITP. 4. Adrenal insufficiency. 5. CMV colitis. 5. Urinary tract infection. PAST SURGICAL HISTORY: 1. Splenectomy. 2. Hysterectomy. 3. Cystoscopy. ALLERGIES: IRON and SULFA. MEDICATIONS: Reviewed from chart. FAMILY HISTORY: Noncontributory. SOCIAL HISTORY: The patient is , has 3 children. No alcohol, tobacco or illicit drug use. REVIEW OF SYSTEMS: A 12 point review of systems is negative except for noted in HPI. PHYSICAL EXAMINATION: VITAL SIGNS: Temperature 98.7, pulse is 61, respiratory rate 15, BP is 113/49. She is 96% on 3 lite rs. GENERAL: Chronically ill-appearing female in no acute distress. HEENT: Normocephalic, atraumatic. Pupils equal and reactive to light. NECK: Supple. CARDIOVASCULAR: Regular rate and rhythm. LUNGS: Clear to auscultation. ABDOMEN: Mildly tender to palpation. EXTREMITIES: No clubbing, cyanosis or edema. SKIN: No rash. HEMATOLOGIC: No petechia or purpura. NEUROLOGIC: Nonfocal. PSYCHIATRIC: The patient is alert and oriented and answering questions appropriately. PERTINENT LABORATORY AND X-RAYS: Current WBCs are 1.1, hemoglobin 8.4, hematocrit 25.9, platelet cou nt is 91,000. She has 34% neutrophils, 24%, lymphocytes, 38% monocytes. Sodium is 136, potassium 3. 8, chloride 111, CO2 is 18, BUN 29, creatinine 1.38, calcium is 7.3, total bilirubin is 0.7, AST is 5 , ALT is less than 7, alkaline phosphatase is 65. Serum total protein is 4.4, albumin 2.5, globulin 1.9. IMPRESSION: 1. Acute pancytopenia. 2. Cytomegalovirus colitis on ganciclovir. 3. Lupus, on Plaquenil and CellCept. 4. Chronic kidney disease, stage 3. 5. Chronic anemia. DISCUSSION: The patient had acute pancytopenia. It is progressive over the last few days and was st arted after starting ganciclovir. This is the most likely cause of her pancytopenia. I do not think she has a primary bone marrow dysfunction. Would recommend the lowest dose possible or discontinuin g if able. Dr. Phillips is seeing the patient for his opinion. The patient will be given a dose of Pro crit today. She did receive 1 unit of packed RBCs with improvement in her hemoglobin. We will vikas nue the Procrit in the outpatient setting every 7 days and we will follow her CBC closely. Thank you for the consult.
--- NOTE | 2017-09-18 12:42 | CON ---
DATE OF CONSULTATION: 09/18/2017 SERVICE: Pulmonary Medicine REASON FOR CONSULTATION: IMCU patient. HISTORY OF PRESENT ILLNESS. The patient is a 72-year-old female with past medical history significant for systemic lupus erythematosus. She is immunocompromised and recently was diagnosed with CMV colitis. She returns to the hospital with increasing fatigue and shortness of breath. She was found to have pancytopenia which was new over the past week. She denies any current fevers, chills, nausea, vomiting or chest discomfort and is otherwise in her usual state of health. She got 2 units of blood yesterday and feels much improved today. Otherwise, there has been no specific interval change to her condition. She has demonstrated hemodynamic stability and requires very little oxygen support. She appears to be comfortable. She is lying in bed and demonstrates some significant weakness which seems to be chronic. PAST MEDICAL HISTORY: 1. Systemic lupus erythematosus. 2. Chronic kidney disease, stage 3. 3. Chronic anemia. 4. CMV colitis and esophagitis. 5. Urinary retention. 6. Angiomyolipoma of the kidneys. 7. History of ITP. 8. Adrenal insufficiency. 9. Osteoarthritis. PAST SURGICAL HISTORY: 1. Splenectomy. 2. Hysterectomy. 3. Left renal mass biopsy. 4. Renal artery embolization in [place]. 5. Cystoscopy. 6. Bladder washout. 7. Recent EGD and colonoscopy. SOCIAL HISTORY: Negative for alcohol, tobacco or illicit drug use. She was recently at [facility] (formerly [facility]). FAMILY HISTORY: Noncontributory. ALLERGIES: IRON and SULFONAMIDES. MEDICATIONS: List of inpatient medications were reviewed. No specific updates were made at this time. REVIEW OF SYSTEMS: Including general, head, ears, eyes, nose, throat, cardiovascular, respiratory, GI, , musculoskeletal, neurologic and skin is negative except as mentioned in the HPI. PHYSICAL EXAMINATION: VITAL SIGNS: Afebrile, pulse 61, blood pressure 113/49, respirations 15, saturation 96% on 3 liters nasal cannula. GENERAL: The patient is awake and alert, in no apparent distress. LUNGS: Excellent air entry. There is no prolonged expiratory phase, wheezing, rhonchi or crackles. HEART: Normal rate, regular. ABDOMEN: Soft, nontender, nondistended. Bowel sounds are positive. MUSCULOSKELETAL: No cyanosis or clubbing. There is no pitting in the bilateral lower extremities. NEUROLOGIC: Grossly nonfocal. LABORATORY DATA: WBC 1.1, hemoglobin 8.4, platelets 91,000. INR 1.1. Creatinine 1.38, BUN 29. Basic metabolic profile is otherwise unremarkable. Liver function studies are unremarkable. Cardiac enzymes are negative x2. Lactate is negative. Vitamin B12 falls within the normal limits. Urinalysis is unremarkable except for red blood cells that are greater than 50, and white blood cells are 21-50. Nitrites are negative. Blood cultures x2 are negative. IMAGING: Chest x-ray demonstrates left-sided pleural effusion is layering. There is a PICC line is in good position. There is a right basilar airspace disease. ASSESSMENT: 1. Pancytopenia, likely secondary to ganciclovir. 2. Systemic lupus erythematosus. 3. Cytomegalovirus colitis and esophagitis. 4. Pleural effusion, possible. 5. Acute hypoxic respiratory failure. PLAN: We will continue to support the patient with antibiotics. I believe the ganciclovir is likely the culprit here. It likely caused her pancytopenia, given the timing. As such, I do agree with holding it. ID consultation is currently pending to come up with a different solution her for CMV colitis and esophagitis. Blood pressures have actually been quite good. As such, interrupt our stress doses of steroids. In 24 hours, we will repeat a 2-view chest x-ray to see whether or not the infiltrate and/or effusion is there. If it is, thoracentesis may be considered. Pulmonary Critical Care will continue to follow for the time being, but from my perspective, she is stable for transition to the floor. We will get physical therapy on board, and ensure that she gets into a chair 2-3 times on a daily basis. 70 minutes have been devoted to this patient in various activities. I personally reviewed all imaging studies and laboratory data noted within this document. For fifty percent of this time, I was interacting with the patient at the bedside or coordinating care with the care team. For the remainder of the time I was immediately available to the patient in the hospital unit. KADEN
--- NOTE | 2017-09-18 13:30 | PQF ---
DATE: 09-29-17 ATTN: DR. MARCELA DICKSON / DR. ALBA DUKES / DR. HARDEEP NOWAK/ DR. AUBREY DE / DR. SHMUEL MEJIA Please exercise your independent, professional judgment in responding to the clarification form. Clinical indicators are provided on the bottom of this form for your review Please check appropriate box(s): I (concur) with the Wound Care findings as stated below. [ x ] Pressure Ulcer:Stage III: Full thickness [ ] Location: POA: [ ] Yes [ ] No[ ] Unable to determine Stage (I to IV): (Left Right Bilateral N/A ) [ ] Gangrene present [ ] Yes [ ] ischemic gangrene [ ] gas gangrene [ ] No [ ] No pressure ulcer diagnosis [ ] Deep tissue injury [ ] Other diagnosis [ ] Unable to determine In addition, please specify: Present on Admission (POA): [ ] Yes [ ] No [ ] Unable to determine For continuity of documentation, please document condition throughout progress notes and discharge summary. Thank You. CLINICAL INDICATORS - SIGNS / SYMPTOMS / LABS WOUND CARE CONSULT 09-18-17: PRESSURE ULCER TO SACRUM STAGE 3 RISK FACTORS: H&P: IMMUNOSUPPRESSED, SEVERE PROTEIN MALNUTRITION TREATMENTS: WCT 09-18-17: DRESSING OPENED AND WOUND ASSESSED. DRESSING STILL CLEAN AND DRY. DRESSING REAPPLIED. ASSISTED PT TO REPOSITION. (This form is maintained as a part of the permanent medical record) 2014 [employer]. All Rights Reserved MTDD
--- NOTE | 2017-09-18 16:37 | PDOC.PN ---
- Subjective Encounter Start Date: 09/18/17 Encounter Start Time: 12:15 Subjective: pt up in bed complains of back pain - Objective Vital Signs & Weight: Vital Signs (12 hours) Temp Pulse Resp BP Pulse Ox 09/18/17 15:00 98.1 F 66 16 119/57 L 94 L 09/18/17 12:00 98.3 F 63 12 112/48 L 94 L 09/18/17 08:00 98.7 F 61 15 96 09/18/17 07:19 98.7 F 61 15 113/49 L 93 L Weight Admit Weight 100 lb 6.4 oz Weight 100 lb 12.8 oz I&O: 09/17/17 09/18/17 09/19/17 06:59 06:59 06:59 Intake Total 600 Output Total 750 Balance -150 Result Diagrams: 09/18/17 05:56 09/18/17 05:06 Phys Exam - Physical Examination HEENT: PERRLA Neck: no nodes, no JVD Respiratory: no wheezing, no rales Cardiovascular: RRR, no significant murmur Gastrointestinal: soft, non-tender Musculoskeletal: no edema, pulses present Neurological: non-focal Dx/Plan - Plan * . pancytopenia cmv colitis/esophagitis acute hypoxic resp failure lupus anemia due to pancytopenia plan: pt is off gancylovir for now, id consulted pt on abx for now for possible pna given her pancytopenia pt on 3-4 L of oxygen pt s/p received one unit of blood Review of Systems - Review of Systems Eyes: negative: Pain, Vision Change, Conjunctivae Inflammation, Eyelid Inflammation, Redness, Other ENT: negative: Ear Pain, Ear Discharge, Nose Pain, Nose Discharge, Nose Congestion, Mouth Pain, Mouth Swelling, Throat Pain, Throat Swelling, Other Respiratory: negative: Cough, Dry, Shortness of Breath, Hemoptysis, SOB with Excertion, Pleuritic Pain, Sputum, Wheezing Musculoskeletal: Back Pain Neurological: negative: Weakness, Numbness, Incoordination, Change in Speech, Confusion, Seizures, Other - Medications/Allergies Allergies/Adverse Reactions: Allergies Allergy/AdvReac Type Severity Reaction Status Date / Time iron Allergy Severe Rash Verified 08/24/17 22:19 Sulfa (Sulfonamide Allergy Severe Rash Verified 08/24/17 22:19 Antibiotics) magnesium sulfate Allergy Verified 08/29/17 16:23 sulfate Allergy Uncoded 08/29/17 13:06 Medications: Current Medications Acetaminophen (Tylenol) 650 mg PO Q4H PRN PRN Reason: Headache/Fever or Pain Last Admin: 09/18/17 13:33 Dose: 650 mg Bisacodyl (Dulcolax) 10 mg PO DAILYPRN PRN PRN Reason: Constipation Calcium Carbonate (Tums) 1,000 mg PO Q4H PRN PRN Reason: Heartburn or Indigestion Clonidine (Catapres) 0.1 mg PO Q4H PRN PRN Reason: Systolic BP > 160 Epoetin Matt (Procrit) 20,000 units SC Q7D [facility] Last Admin: 09/18/17 11:51 Dose: 20,000 units Furosemide (Lasix) 40 mg SLOW IVP 0600 [facility] Guaifenesin (Robitussin Sf) 200 mg PO Q4H PRN PRN Reason: Cough Hydralazine HCl (Apresoline) 10 mg SLOW IVP Q4H PRN PRN Reason: Systolic BP > 170 Cefepime HCl 1 gm/ Syringe 10 mls @ 120 mls/hr SLOW IVP 0100,1300 [facility] Last Admin: 09/18/17 11:55 Dose: 10 mls Vancomycin HCl 750 mg/ Sodium (Chloride) 250 mls @ 250 mls/hr IVPB Q24HR@0200 [facility] Last Admin: 09/18/17 01:17 Dose: 250 mls Lidocaine (Lidoderm 5% Patch) 1 patch TD 1600 [facility] Loratadine (Claritin) 10 mg PO DAILYPRN PRN PRN Reason: Sinus Symptoms Miscellaneous Medication (Lidocaine Patch Removal) 1 each TOP 0800 [facility] Nitroglycerin (Nitrostat) 0.4 mg SL Q5MIN PRN PRN Reason: Chest Pain Ondansetron HCl (Zofran) 4 mg IVP Q6H PRN PRN Reason: Nausea/Vomiting Pantoprazole Sodium (Protonix) 40 mg IVP Q12HR [facility] Senna (Senokot) 2 tab PO HSPRN PRN PRN Reason: Constipation Tramadol HCl (Ultram) 50 mg PO Q4H PRN PRN Reason: Moderate Pain (4-6)
--- NOTE | 2017-09-18 16:54 | CON ---
DATE OF CONSULTATION: 09/18/2017 REASON FOR CONSULTATION: Neutropenia and prior CMV infection. HISTORY OF PRESENT ILLNESS: A 72-year-old patient with a history of systemic lupus erythematosus for the past 14 years with index diagnosis of nephritis, treated with Cytoxan and prednisone, good respo nse and currently on CellCept, mycophenolate, and prednisone. I had seen her in May for urinary tract infection with invasive features, treated with a PICC line for resistant pathogen. Subsequent ly, the patient was assessed for opportunistic pathogen and had a positive CMV DNA PCR with the quant itation of 8820. She then presented in August with recurrent episodes of nausea, vomiting, weaknes s, odynophagia, epigastric pain, and unremitting diarrhea. 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 The patient was given ganciclovir IV and then transitioned to oral valganciclovir, which has been taken since 08/26/2017. She has completed about 20-21 days of therapy thus far. There has been impr ovement in diarrhea. She then developed worsening dyspnea and was transferred to this hospital for m anagement. Before this problem, she had been identified with worsening neutropenia and a dose of Kerri cyte had been modified. She continues to have some odynophagia. No headaches, no visual symptoms, s ome cough. Apparently, she had been given IV fluids through a PICC line, which had been recently ins erted. After this initial administration of fluids, she developed the dyspnea. She was brought by [facility] and was placed on nonrebreathing mask, O2 sats were in the low 90s on 5 liters. Some abdominal pa in, which is chronic. No hematochezia or melena. No genitourinary symptoms except for Villanueva cathete r placement. 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 ALLERGIES: SULFA DRUGS. PAST SURGICAL HISTORY: Hysterectomy, splenectomy, ovarian mass removal. SOCIAL HISTORY: Never smoker and transferred now from rehabilitation. FAMILY HISTORY: Noncontributory. PHYSICAL EXAMINATION: VITAL SIGNS: T-max 98.7, blood pressure 119/57, pulse 66, respirations 16, O2 sat 94% on 3 liters na heather cannula, appears in no distress, pleasant, chronically ill-appearing. She has an area of ulcerat ion in the sacral region, very superficial. She has a PICC line in left upper extremity and Villanueva ca theter. No lymphadenopathy. HEENT: Ocular movements conjugate. Sclerae white. Pupils are equal and reactive. She has 2 fairly large ulcerations in the soft palate right and left sides, fairly symmetric with a kind of necrotic- appearing base, round shaped. Numerous teeth in place with expected decay and gum disease. NECK: Supple. No jugular vein distention or carotid bruits. LUNGS: Symmetric clear breath sounds. BACK: No back tenderness. ABDOMEN: Mild to moderately tender, soft, not distended, no ascites. No bladder distention. EXTREMITIES: She is able to move extremities equally. She has some element of muscle atrophy. Puls es 1+ in dorsalis pedis. Plantar responses were flexor. LABORATORY DATA: White cell count 0.7 and now 1.1, hemoglobin 8.4, platelets 60 and 34,000, 24% lymp hocytes, 34% neutrophils, total neutrophil count is calculated around 400 and metamyelocytes 4. INR 1.1. Sodium 136, creatinine 1.38, which is up from previous levels, albumin 2.5. Liver profile norm al. Urinalysis with 21-50 wbc's. Microbiology with E. coli retrieved from urinary culture. Two set s of blood cultures, no growth thus for. Chest x-ray on admission, right basilar airspace opacity la yering left effusion. ASSESSMENT: 1. Systemic lupus erythematosus. 2. Immunosuppressive medications. 2. Renal insufficiency, stage 2-3. 3. Cytomegalovirus viremia with gastrointestinal illness. The oral ulcers are probably secondary to CMV infection. Alternate possibilities include herpes simplex infection or ulcers related to system ic lupus erythematosus. Fungal infections such as histoplasmosis would be less likely. 4. Neutropenia, likely associated with valganciclovir administration, although systemic lupus can be associated with pancytopenia as well. The development of the leukopenia seems to be temporally rela michelle to the initiation of valganciclovir, so I believe this is the culprit here. The duration of ther apy for the gastrointestinal illness various usually 3 weeks is sufficient to suppress the viral prod uction in the gastrointestinal tract. Suppression of virus following the initial treatment might be required particularly in her case since then suppressive treatment will be maintained. The lung find ings are more likely to reflect the volume overload than an infectious pneumonitis. She has urinary tract colonization with E. coli, but probably not an invasive infectious process at this point in karri e. She has been started on cefepime and vancomycin empirically and valagancyclovir or valganciclovir has been placed on hold. We will resubmit CMV DNA PCR from blood to restage her cytomegalovirus pro cess.
[2017-09-18] MEDS: Lidocaine 5% Patch TD SCH (17:13)
[2017-09-19] MEDS: Vancomycin HCl 750 MG in Sodium Chloride 0.9% 250 ML 250 ML IVPB SCH (02:18)
[2017-09-19] MEDS: Cefepime 1 GM in Syringe 10 ML SLOW IVP SCH ×2 (02:18→13:57)
[2017-09-19 04:24] LABS: Anion Gap 10 mmol/L (10-20); BUN (Urea Nitrogen) 30 mg/dL (9.8-20.1); Calc. Creatinine Clearance 28 mL/min (70-130); Calcium 7.2 mg/dL (7.8-10.44); Carbon Dioxide 18 mmol/L (23-31); Chloride 110 mmol/L (98-107); Estimated GFR-MDRD 39; Glucose 86 mg/dL (80-115); Potassium 3.3 mmol/L (3.5-5.1); Sodium 135 mmol/L (136-145)
[2017-09-19] MEDS: Acetaminophen 325 MG TAB PO PRN ×3 (04:36→21:19)
[2017-09-19 04:37] LABS: Hemoglobin 8.2 g/dL (12.0-16.0); Mean Corpuscular HGB CONC 32.4 g/dL (32.0-36.0); Mean Corpuscular Hemoglobin 29.9 pg (27.0-31.0); Mean Corpuscular Volume 92.4 fl (81.0-99.0); Mean Platelet Volume 12.2 fL (7.4-10.4); Platelet Count 112 thou/uL (130-400); RBC Distribution Width 16.6 % (11.5-14.5); Red Blood Cell (RBC) Count 2.75 mill/uL (4.20-5.40); White Blood Cell (WBC) Count 1.1 thou/uL (4.8-10.8)
[2017-09-19 04:38] LABS: Acanthocytes MODERATE= 6-15 cells (100X) (None Seen); Anisocytosis MARKED = >30 cells (100X) (0-5/hpf); Band 5 % (5-11); Dohle Bodies MODERATE; Howell Jolly Bodies MODERATE = 3-5 cells (100X) (None Seen); Hypochromia SLIGHT = 6-15 cells (100X) (0-5/hpf); Lymphocytes 26 % (21-51); MDiff Complete? YES; Metamyelocyte 3 % (0-0); Monocytes 9 % (0-10); Myelocyte 1 % (0-0); Neutrophil 54 % (42-75); Nucleated RBC 5 % (0); PLT Morphology Comment Appears Decreased; Pappenheimer Bodies SLIGHT = 1-2 cells (100X) (None Seen); Polychromasia SLIGHT = 2-3 cells (100X) (0-2/hpf); Reactive Lymphocytes 2 % (0-10); Schistocytes MODERATE= 6-15 cells (100X) (0-1/hpf); Spherocytes SLIGHT = 1-5 cells (100X) (None Seen)
[2017-09-19] MEDS ORDERED: Furosemide 40 MG/4 ML VIAL SLOW IVP SCH (06:00)
[2017-09-19] MEDS: Pantoprazole 40 MG VIAL IVP SCH ×2 (09:12→21:18)
[2017-09-19] MEDS: Lidocaine Patch Removal 1 EACH TOP SCH (09:19)
--- NOTE | 2017-09-19 09:23 | PQF ---
DATE: 09-22-17 ATTN: DR. MARCELA RAYGOZA / DR. ALBA DUKES Please exercise your independent, professional judgment in responding to the clarification form. Clinical indicators are provided on the bottom of this form for your review Please check appropriate box(s) to clarify if the following diagnosis has been ruled in our ruled out: SEPSIS [ ] Ruled in diagnosis [ ] Continue to treat [ ] Resolved [ ] Ruled out diagnosis [ ] Other diagnosis [ ] Unable to determine In addition, please specify: Present on Admission (POA): [ ] Yes [ ] No [ ] Unable to determine For continuity of documentation, please document condition throughout progress notes and discharge summary. Thank You. CLINICAL INDICATORS - SIGNS / SYMPTOMS / LABS H&P: SEPSIS. SHE IS ALSO SIGNIFICANTLY IMMUNOSUPPRESSED. HYPOTENSION, POSSIBLY SEPTIC VERSUS HYPOVOLEMIC SHOCK WBC: 18: 0.7 09-18-17: 1.1 18: 1.1 BANDS: --: 12 RISK FACTORS: H&P: SEPSIS. SHE IS ALSO SIGNIFICANTLY IMMUNOSUPPRESSED. HYPOTENSION, POSSIBLY SEPTIC VERSUS HYPOVOLEMIC SHOCK, HX OF RECURRENT UTI'S, HX OF LUPUS, TREATMENTS: (MAR) MAXIPIME, VANCOMYCIN (This form is maintained as a part of the permanent medical record) 2014 [employer]. All Rights Reserved MAKENZIE [email or web address] Office: [phone] KADEN
--- NOTE | 2017-09-19 09:50 | RAD ---
CHEST ONE VIEW: History: Follow up pleural effusion. Comparison: 09-17-17 FINDINGS: Heart size is within normal limits. Aorta is tortuous. Left sided line which appears to be a PICC emelina e is unchanged in position. The right basilar opacity is slightly improved. Left sided effusion is un changed. IMPRESSION: Slight improvement to the right lower lobe parenchymal change. Otherwise, essentially stable chest. POS: [facility]
[2017-09-19] MEDS: Potassium Chloride 20 MEQ TAB PO SCH ×2 (11:50→15:57)
--- NOTE | 2017-09-19 11:50 | PRG ---
DATE OF SERVICE: 09/19/2017 SERVICE: Pulmonary Medicine. INTERVAL HISTORY: The patient is doing fine from a respiratory standpoint. Her strength is improving a little bit. She remains fairly weak and is bound to this bed. Outside of this, there was no specific change to her condition overnight. PHYSICAL EXAMINATION: VITAL SIGNS: Afebrile, pulse 84, blood pressure 126/58, respirations 16, saturation 96% on 3 liters nasal cannula. GENERAL: The patient is awake and alert, in no apparent distress. LUNGS: Excellent air entry. There is no prolonged expiratory phase or wheezing. I do appreciate crackles. HEART: Normal rate, regular. ABDOMEN: Soft, nontender, nondistended. Bowel sounds are positive. MUSCULOSKELETAL: No cyanosis or clubbing. There is no pitting in the bilateral lower extremities. NEUROLOGIC: Grossly nonfocal. LABORATORY DATA: WBC 1.1, hemoglobin 8.2, platelets 112,000. Neutrophil count is 54%, monocytes are back into the normal range. INR 1.1, creatinine 1.33, bicarbonate 18, anion gap 10, potassium 3.3. Urine culture is growing E. coli, which is sensitive to multiple antibiotics including nitrofurantoin. Blood cultures x2 are unremarkable. IMAGING: Chest x-ray demonstrates slight improvement in the right lower lobe parenchymal change. Otherwise, she has a stable chest. ASSESSMENT: 1. Acute hypoxic respiratory failure, improving. 2. Pancytopenia, secondary to ganciclovir. 3. Systemic lupus erythematosus. 4. Cytomegalovirus colitis and esophagitis. 5. Pleural effusion. DISCUSSION AND PLAN: We will focus our efforts on mobilizing the patient as best we can. Potassium will be replaced today and I will check a magnesium tomorrow morning. From my perspective, she is stable for transition to the medical unit. Pulmonary Critical Care will continue to follow while she remains in this location. We will wean oxygen as tolerated. MTDD
--- NOTE | 2017-09-19 14:53 | PDOC.PN ---
- Subjective Encounter Start Date: 09/19/17 Encounter Start Time: 12:15 Subjective: pt up in bed states she had a loose bm today - Objective Vital Signs & Weight: Vital Signs (12 hours) Temp Pulse Pulse Resp BP BP Pulse Ox 09/19/17 12:05 100 118/60 09/19/17 11:37 98.1 F 93 17 118/60 96 09/19/17 08:44 96 09/19/17 08:00 98.9 F 84 16 94 L 09/19/17 07:00 98.9 F 84 16 126/58 L 94 L 09/19/17 04:00 99.0 F 76 18 123/49 L 93 L Pulse Ox 09/19/17 12:05 95 09/19/17 11:37 09/19/17 08:44 09/19/17 08:00 09/19/17 07:00 09/19/17 04:00 Weight Admit Weight 100 lb 6.4 oz Weight 103 lb 3 oz I&O: 09/18/17 09/19/17 09/20/17 06:59 06:59 06:59 Intake Total 600 1300 Output Total 750 1175 Balance -150 125 Result Diagrams: 09/19/17 04:07 09/19/17 04:07 Phys Exam - Physical Examination HEENT: PERRLA, moist MMs Neck: no nodes, no JVD Respiratory: no wheezing Cardiovascular: RRR, no significant murmur Gastrointestinal: soft mild tendereness on palpation Musculoskeletal: no edema, pulses present Neurological: normal sensation Dx/Plan - Plan * . pancytopenia cmv colitis/esophagitis acute hypoxic resp failure lupus anemia due to pancytopenia plan: pt is off gancylovir for now, id consulted ( pt off gancylovir) pt on abx for now for possible pna given her pancytopenia. Also has ecoli in urine but appears to be colonized pt on 3-4 L of oxygen pt s/p received one unit of blood pt receiving epogen, hh stable pt encouraged to get up in chair Review of Systems - Review of Systems Eyes: negative: Pain, Vision Change, Conjunctivae Inflammation, Eyelid Inflammation, Redness, Other ENT: negative: Ear Pain, Ear Discharge, Nose Pain, Nose Discharge, Nose Congestion, Mouth Pain, Mouth Swelling, Throat Pain, Throat Swelling, Other Respiratory: negative: Cough, Dry, Shortness of Breath, Hemoptysis, SOB with Excertion, Pleuritic Pain, Sputum, Wheezing Cardiovascular: negative: chest pain, palpitations, orthopnea, paroxysmal nocturnal dyspnea, edema, light headedness, other Gastrointestinal: Diarrhea Genitourinary: negative: Dysuria, Frequency, Incontinence, Hematuria, Retention , Other - Medications/Allergies Allergies/Adverse Reactions: Allergies Allergy/AdvReac Type Severity Reaction Status Date / Time iron Allergy Severe Rash Verified 08/24/17 22:19 Sulfa (Sulfonamide Allergy Severe Rash Verified 08/24/17 22:19 Antibiotics) magnesium sulfate Allergy Verified 08/29/17 16:23 sulfate Allergy Uncoded 08/29/17 13:06 Medications: Current Medications Acetaminophen (Tylenol) 650 mg PO Q4H PRN PRN Reason: Headache/Fever or Pain Last Admin: 09/19/17 11:50 Dose: 650 mg Bisacodyl (Dulcolax) 10 mg PO DAILYPRN PRN PRN Reason: Constipation Calcium Carbonate (Tums) 1,000 mg PO Q4H PRN PRN Reason: Heartburn or Indigestion Clonidine (Catapres) 0.1 mg PO Q4H PRN PRN Reason: Systolic BP > 160 Epoetin Matt (Procrit) 20,000 units SC Q7D [facility] Last Admin: 09/18/17 11:51 Dose: 20,000 units Furosemide (Lasix) 40 mg PO DAILY-[facility] Guaifenesin (Robitussin Sf) 200 mg PO Q4H PRN PRN Reason: Cough Hydralazine HCl (Apresoline) 10 mg SLOW IVP Q4H PRN PRN Reason: Systolic BP > 170 Cefepime HCl 1 gm/ Syringe 10 mls @ 120 mls/hr SLOW IVP 0100,1300 [facility] Last Admin: 09/19/17 13:57 Dose: 10 mls Lidocaine (Lidoderm 5% Patch) 1 patch TD 1600 [facility] Last Admin: 09/18/17 17:13 Dose: 1 patch Loratadine (Claritin) 10 mg PO DAILYPRN PRN PRN Reason: Sinus Symptoms Miscellaneous Medication (Lidocaine Patch Removal) 1 each TOP 0800 [facility] Last Admin: 09/19/17 09:19 Dose: 1 each Nitroglycerin (Nitrostat) 0.4 mg SL Q5MIN PRN PRN Reason: Chest Pain Ondansetron HCl (Zofran) 4 mg IVP Q6H PRN PRN Reason: Nausea/Vomiting Pantoprazole Sodium (Protonix) 40 mg IVP Q12HR [facility] Last Admin: 09/19/17 09:12 Dose: 40 mg Potassium Chloride (K-Dur) 40 meq PO Q4H [facility] Stop: 09/19/17 15:46 Last Admin: 09/19/17 11:50 Dose: 40 meq Senna (Senokot) 2 tab PO HSPRN PRN PRN Reason: Constipation Tramadol HCl (Ultram) 50 mg PO Q4H PRN PRN Reason: Moderate Pain (4-6)
[2017-09-19] MEDS: Lidocaine 5% Patch TD SCH (15:57)
[2017-09-20] MEDS: Cefepime 1 GM in Syringe 10 ML SLOW IVP SCH (01:57)
[2017-09-20 06:44] LABS: Anion Gap 9 mmol/L (10-20); BUN (Urea Nitrogen) 29 mg/dL (9.8-20.1); Calc. Creatinine Clearance 25 mL/min (70-130); Calcium 7.3 mg/dL (7.8-10.44); Carbon Dioxide 19 mmol/L (23-31); Chloride 111 mmol/L (98-107); Estimated GFR-MDRD 34; Glucose 82 mg/dL (80-115); Magnesium 2.6 mg/dL (1.6-2.6); Potassium 4.3 mmol/L (3.5-5.1); Sodium 135 mmol/L (136-145)
[2017-09-20 06:55] LABS: Band 15 % (5-11); Burr Cells SLIGHT = 2-5 cells (100X) (0-1/hpf); Hemoglobin 8.4 g/dL (12.0-16.0); Hypochromia SLIGHT = 6-15 cells (100X) (0-5/hpf); Lymphocytes 43 % (21-51); MDiff Complete? YES; Mean Corpuscular Hemoglobin 29.3 pg (27.0-31.0); Mean Corpuscular Volume 91.4 fl (81.0-99.0); Mean Platelet Volume 12.2 fL (7.4-10.4); Metamyelocyte 1 % (0-0); Monocytes 8 % (0-10); Neutrophil 33 % (42-75); Nucleated RBC 20 % (0); PLT Morphology Comment Appears Decreased; Phosphorus 1.8 mg/dL (2.3-4.7); Platelet Count 114 thou/uL (130-400); Red Blood Cell (RBC) Count 2.88 mill/uL (4.20-5.40); White Blood Cell (WBC) Count 1.6 thou/uL (4.8-10.8)
[2017-09-20] MEDS: Pantoprazole 40 MG VIAL IVP SCH ×2 (07:42→22:20)
[2017-09-20] MEDS: Furosemide 40 MG TAB PO SCH (07:42)
[2017-09-20] MEDS: Lidocaine Patch Removal 1 EACH TOP SCH (07:43)
[2017-09-20] MEDS: Piperacillin/Tazobactam 2.25 GM in Sodium Chloride 0.9% 100 ML IVPB SCH ×2 (12:44→18:05)
[2017-09-20] MEDS: Lidocaine 5% Patch TD SCH (12:56)
[2017-09-20] MEDS: traMADol HCl 50 MG TAB PO PRN (14:22)
--- NOTE | 2017-09-20 14:38 | PRG ---
DATE OF SERVICE: 09/20/2017 SUBJECTIVE: Ms. Burnett is doing well. She is still having some loose bowel movements. She has merritt d 2 when I evaluated her about 10:00 this morning. The first was at 3:00 a.m. PHYSICAL EXAMINATION: VITAL SIGNS: She is afebrile, heart rate 100, respiratory rate 16, oximetry is 95% on room air, bloo d pressure 126/72. LUNGS: Clear. HEART: Regular rhythm. ABDOMEN: Soft. IMPRESSION: 1. Hypoxemia secondary to atelectasis. 2. Cytomegalovirus virus colitis with improving diarrhea by her report. 3. Pancytopenia secondary to ganciclovir. 4. Lupus. LABORATORY DATA: Reviewed. Her white count is up to 1.6, hemoglobin is 8.4, platelets 114,000. Sod ium 135, potassium 4.3, chloride 111, bicarbonate 19, BUN 29, creatinine 1.5 up from 1.33. Her renal function will continue need to be watched. She appears to be stable. I encouraged her son to take her outside in a wheelchair and get some fresh air today. She was requesting that we allowe d her to do this. We will continue to follow.
--- NOTE | 2017-09-20 14:56 | PDOC.PN ---
- Subjective Encounter Start Date: 09/20/17 Encounter Start Time: 13:45 Subjective: pt up in bed complains of lower back pain - Objective Vital Signs & Weight: Vital Signs (12 hours) Temp Pulse Resp BP Pulse Ox 09/20/17 11:20 98.7 F 100 16 126/72 100 09/20/17 08:00 98.5 F 87 16 09/20/17 07:28 98.5 F 87 16 128/66 95 09/20/17 04:00 99.4 F 93 18 127/69 93 L Weight Admit Weight 100 lb 6.4 oz Weight 102 lb 8.239 oz I&O: 09/19/17 09/20/17 09/21/17 06:59 06:59 07:59 Intake Total 1300 850 Output Total 1175 1750 875 Balance 125 -1750 -25 Result Diagrams: 09/20/17 06:20 09/20/17 06:20 Phys Exam - Physical Examination HEENT: PERRLA, moist MMs Neck: no nodes Respiratory: no wheezing, no rales Cardiovascular: RRR, no significant murmur Gastrointestinal: soft mild tenderness on palpation Musculoskeletal: no edema, pulses present Dx/Plan - Plan * . pancytopenia cmv colitis/esophagitis acute hypoxic resp failure lupus anemia due to pancytopenia plan: pt is off gancylovir for now, id consulted ( pt off gancylovir) pt on abx for now for possible pna given her pancytopenia. pt's urine cx indicates enterococcus and ecoli, will contact ID for appropriate abx pt on 3-4 L of oxygen pt s/p received one unit of blood pt receiving epogen, hh stable pt encouraged to get up in chair Review of Systems - Review of Systems Eyes: negative: Pain, Vision Change, Conjunctivae Inflammation, Eyelid Inflammation, Redness, Other ENT: negative: Ear Pain, Ear Discharge, Nose Pain, Nose Discharge, Nose Congestion, Mouth Pain, Mouth Swelling, Throat Pain, Throat Swelling, Other Respiratory: negative: Cough, Dry, Shortness of Breath, Hemoptysis, SOB with Excertion, Pleuritic Pain, Sputum, Wheezing Cardiovascular: negative: chest pain, palpitations, orthopnea, paroxysmal nocturnal dyspnea, edema, light headedness, other Musculoskeletal: Back Pain - Medications/Allergies Allergies/Adverse Reactions: Allergies Allergy/AdvReac Type Severity Reaction Status Date / Time iron Allergy Severe Rash Verified 08/24/17 22:19 Sulfa (Sulfonamide Allergy Severe Rash Verified 08/24/17 22:19 Antibiotics) magnesium sulfate Allergy Verified 08/29/17 16:23 sulfate Allergy Uncoded 08/29/17 13:06 Medications: Current Medications Acetaminophen (Tylenol) 650 mg PO Q4H PRN PRN Reason: Headache/Fever or Pain Last Admin: 09/19/17 21:19 Dose: 650 mg Bisacodyl (Dulcolax) 10 mg PO DAILYPRN PRN PRN Reason: Constipation Calcium Carbonate (Tums) 1,000 mg PO Q4H PRN PRN Reason: Heartburn or Indigestion Clonidine (Catapres) 0.1 mg PO Q4H PRN PRN Reason: Systolic BP > 160 Epoetin Matt (Procrit) 20,000 units SC Q7D [facility] Last Admin: 09/18/17 11:51 Dose: 20,000 units Furosemide (Lasix) 40 mg PO DAILY-[facility] Last Admin: 09/20/17 07:42 Dose: 40 mg Guaifenesin (Robitussin Sf) 200 mg PO Q4H PRN PRN Reason: Cough Hydralazine HCl (Apresoline) 10 mg SLOW IVP Q4H PRN PRN Reason: Systolic BP > 170 Piperacillin Sod/Tazobactam (Sod 2.25 gm/ Sodium Chloride) 100 mls @ 200 mls/ hr IVPB Q6HR [facility] Last Admin: 09/20/17 12:44 Dose: 100 mls Lidocaine (Lidoderm 5% Patch) 1 patch TD 1600 [facility] Last Admin: 09/20/17 12:56 Dose: 1 patch Loratadine (Claritin) 10 mg PO DAILYPRN PRN PRN Reason: Sinus Symptoms Miscellaneous Medication (Lidocaine Patch Removal) 1 each TOP 0800 [facility] Last Admin: 09/20/17 07:43 Dose: 1 each Miscellaneous Medication (Phos-Nak) 1 pkt PO TID [facility] Last Admin: 09/20/17 12:13 Dose: Not Given Miscellaneous Medication (Phos-Nak) 1 pkt PO TID-[facility] Stop: 09/21/17 08:01 Last Admin: 09/20/17 12:12 Dose: 1 pkt Nitroglycerin (Nitrostat) 0.4 mg SL Q5MIN PRN PRN Reason: Chest Pain Ondansetron HCl (Zofran) 4 mg IVP Q6H PRN PRN Reason: Nausea/Vomiting Pantoprazole Sodium (Protonix) 40 mg IVP Q12HR [facility] Last Admin: 09/20/17 07:42 Dose: 40 mg Senna (Senokot) 2 tab PO HSPRN PRN PRN Reason: Constipation Tramadol HCl (Ultram) 50 mg PO Q4H PRN PRN Reason: Moderate Pain (4-6) Last Admin: 09/20/17 14:22 Dose: 50 mg
--- NOTE | 2017-09-20 15:58 | EKG ---
Test Reason : CP Blood Pressure : / mmHG Vent. Rate : 057 BPM Atrial Rate : 057 BPM P-R Int : 132 ms QRS Dur : 142 ms QT Int : 524 ms P-R-T Axes : 066 024 025 degrees QTc Int : 510 ms Sinus bradycardia Right bundle branch block Abnormal ECG Confirmed by SONG BROOKS, TAWNY ([id number]), editor index XAVIER HERNÁNDEZ ([id number]) on 09/20/2017 3:56:31 PM Referred By: Confirmed By:TAWNY ZULETA MD
--- NOTE | 2017-09-20 17:07 | RAD ---
LUMBAR SPINE THREE VIEWS 09/20/17 HISTORY: Low back pain. FINDINGS: Comparison is made with the exam of 09/23/16. Stable compression of T12 vertebral body is seen with ap proximately 50% height loss. Minimal anterolisthesis of L4 over L5 is again seen. There are vascular calcifications. IMPRESSION: Stable exam. POS: [place]
[2017-09-20] MEDS: Acetaminophen 325 MG TAB PO PRN (18:47)
[2017-09-21] MEDS: Piperacillin/Tazobactam 2.25 GM in Sodium Chloride 0.9% 100 ML IVPB SCH ×5 (00:46→23:52)
[2017-09-21 05:20] LABS: Albumin 2.3 g/dL (3.4-4.8); Anion Gap 13 mmol/L (10-20); BUN (Urea Nitrogen) 25 mg/dL (9.8-20.1); BUN/Creatinine Ratio 16.78; Calc. Creatinine Clearance 26 mL/min (70-130); Calcium 7.2 mg/dL (7.8-10.44); Carbon Dioxide 19 mmol/L (23-31); Chloride 107 mmol/L (98-107); Estimated GFR-MDRD 35; Glucose 64 mg/dL (80-115); Magnesium 1.9 mg/dL (1.6-2.6); Phosphorus 2.5 mg/dL (2.3-4.7); Potassium 3.7 mmol/L (3.5-5.1); Sodium 135 mmol/L (136-145)
[2017-09-21 05:34] LABS: Acanthocytes MODERATE= 6-15 cells (100X) (None Seen); Anisocytosis MARKED = >30 cells (100X) (0-5/hpf); Band 1 % (5-11); Burr Cells SLIGHT = 2-5 cells (100X) (0-1/hpf); Hemoglobin 8.5 g/dL (12.0-16.0); Lymphocytes 43 % (21-51); MDiff Complete? YES; Mean Corpuscular HGB CONC 32.3 g/dL (32.0-36.0); Mean Corpuscular Hemoglobin 29.7 pg (27.0-31.0); Mean Corpuscular Volume 91.9 fl (81.0-99.0); Mean Platelet Volume 12.2 fL (7.4-10.4); Metamyelocyte 2 % (0-0); Monocytes 13 % (0-10); Myelocyte 2 % (0-0); Neutrophil 39 % (42-75); Nucleated RBC 7 % (0); PLT Morphology Comment Appears Decreased; Platelet Count 117 thou/uL (130-400); Polychromasia MODERATE = 3-4 cells (100X) (0-2/hpf); RBC Distribution Width 18.3 % (11.5-14.5); Red Blood Cell (RBC) Count 2.85 mill/uL (4.20-5.40); Schistocytes MODERATE= 6-15 cells (100X) (0-1/hpf); White Blood Cell (WBC) Count 2.3 thou/uL (4.8-10.8)
[2017-09-21] MEDS: Pantoprazole 40 MG VIAL IVP SCH ×2 (07:44→20:35)
[2017-09-21] MEDS: Furosemide 40 MG TAB PO SCH (07:45)
[2017-09-21] MEDS: Lidocaine Patch Removal 1 EACH TOP SCH (07:45)
--- NOTE | 2017-09-21 11:32 | PDOC.PN ---
- Subjective Encounter Start Date: 09/21/17 Encounter Start Time: 10:00 doing better. no acute night events - Objective Vital Signs & Weight: Vital Signs (12 hours) Temp Pulse Resp BP Pulse Ox 09/21/17 07:47 98.7 F 89 16 127/64 98 09/21/17 06:55 98.9 F 101 H 18 Weight Admit Weight 100 lb 6.4 oz Weight 101 lb 13.657 oz I&O: 09/20/17 09/21/17 09/22/17 05:59 06:59 06:59 Intake Total Output Total Balance Result Diagrams: 09/21/17 03:50 09/21/17 03:50 Phys Exam - Physical Examination Constitutional: NAD HEENT: PERRLA, moist MMs Neck: no nodes, no JVD, supple Respiratory: no wheezing, no rales Cardiovascular: RRR, no rub Gastrointestinal: soft, no distention mild tenderness diffusely Musculoskeletal: pulses present Neurological: moves all 4 limbs Dx/Plan (1) Acute respiratory failure with hypoxia Code(s): J96.01 - ACUTE RESPIRATORY FAILURE WITH HYPOXIA Status: Acute (2) Acute urinary retention Code(s): R33.8 - OTHER RETENTION OF URINE Status: Acute Comment: with kerr + (3) Acute worsening of stage 3 chronic kidney disease Code(s): N18.3 - CHRONIC KIDNEY DISEASE, STAGE 3 (MODERATE) Status: Acute (4) Atelectasis of both lungs Code(s): J98.11 - ATELECTASIS Status: Acute (5) Colitis, CMV Code(s): A08.39 - OTHER VIRAL ENTERITIS; B25.9 - CYTOMEGALOVIRAL DISEASE, UNSPECIFIED Status: Acute (6) UTI (urinary tract infection) Status: Acute Comment: due to klebsiela (7) Hypertension Code(s): I10 - ESSENTIAL (PRIMARY) HYPERTENSION Status: Chronic Qualifiers: Hypertension type: essential hypertension Qualified Code(s): I10 - Essential (primary) hypertension (8) SLE (systemic lupus erythematosus) Code(s): M32.9 - SYSTEMIC LUPUS ERYTHEMATOSUS, UNSPECIFIED Status: Chronic Qualifiers: Systemic lupus erythematosus type: unspecified - Plan cont current plan of care, plan discussed w/ family, 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 continue current plan continue holding gangciclovir pending CMV DNA PCR WBC and Hgb improving continue follow recs from pulmonology and ID
[2017-09-21] MEDS: Acetaminophen 325 MG TAB PO PRN (13:46)
[2017-09-21] MEDS: Lidocaine 5% Patch TD SCH (13:57)
--- NOTE | 2017-09-21 15:26 | PRG ---
DATE OF SERVICE: 09/21/2017 SUBJECTIVE: Ms. Burnett is feeling unwell, although the diarrhea appears to have subsided. Still w ith mild to moderate tenderness diffusely distributed in the abdominal area, some soreness in the pos terior oropharynx upon swallowing, had some headaches which have improved now. Villanueva catheter in juliette ce. OBJECTIVE: VITAL SIGNS: The patient has been afebrile. Other vital signs are normal. GENERAL: Chronically ill appearing, awake, no distress. HEENT: Ocular movements conjugate. LUNGS: Clear. HEART: S1, S2, regular rate. ABDOMEN: Soft with mild to moderate diffuse tenderness. No rebound tenderness. No ascites. No anna dder distention. The palate ulcers now have very fresh and healthy looking appearance. They are nadia te shallow. LABORATORY DATA: White cell count is up to 2.3, hemoglobin 8.5, platelets 117,000. Creatinine 1.49, which is stable. The CMV DNA PCR repeat assay is pending at this time. ASSESSMENT AND DISCUSSION: Systemic lupus erythematosus on immunosuppressive regimen with stage II t o III renal insufficiency and cytomegalovirus viremia with a gastrointestinal illness with improvemen t except for development of neutropenia. Valcyte has been withheld and the patient's counts are impr oving following that. If the CMV quantitation shows absence of virus in the blood stream, I would co ntinue withholding Valcyte. If it is positive, then we will have to resume other options would be fo scarnet or cidofovir; however, those will necessarily lead to worsening of renal function even though the risk of patient needing dialytic replacement, so I would probably avoid these two options and re sume Valcyte need be. Hopefully, we will not need to resume Valcyte. Periodically, patient will req uire reevaluation of her cytomegalovirus viremia since she will be at risk for recrudescence in the f uture.
[2017-09-22] MEDS ORDERED: Sterile Water 20 ML VIAL IVP SCH (00:15)
[2017-09-22] MEDS ORDERED: Sterile Water 10 ML VIAL IVP SCH (00:15)
[2017-09-22] MEDS ORDERED: Activase 2 MG VIAL CATH SCH (00:15)
[2017-09-22] MEDS: Acetaminophen 325 MG TAB PO PRN ×2 (04:14→09:56)
[2017-09-22] MEDS: Piperacillin/Tazobactam 2.25 GM in Sodium Chloride 0.9% 100 ML IVPB SCH ×4 (05:26→23:50)
[2017-09-22 05:43] LABS: Anion Gap 15 mmol/L (10-20); BUN (Urea Nitrogen) 22 mg/dL (9.8-20.1); Calc. Creatinine Clearance 22 mL/min (70-130); Calcium 7.7 mg/dL (7.8-10.44); Carbon Dioxide 21 mmol/L (23-31); Chloride 104 mmol/L (98-107); Estimated GFR-MDRD 33; Glucose 45 mg/dL (80-115); Magnesium 1.7 mg/dL (1.6-2.6); Phosphorus 3.4 mg/dL (2.3-4.7); Potassium 3.2 mmol/L (3.5-5.1); Sodium 137 mmol/L (136-145)
[2017-09-22 05:49] LABS: Band 6 % (5-11); Hemoglobin 8.9 g/dL (12.0-16.0); Lymphocytes 37 % (21-51); MDiff Complete? YES; Mean Corpuscular Hemoglobin 28.4 pg (27.0-31.0); Mean Corpuscular Volume 94.7 fl (81.0-99.0); Metamyelocyte 2 % (0-0); Monocytes 4 % (0-10); Myelocyte 2 % (0-0); Neutrophil 49 % (42-75); Nucleated RBC 5 % (0); PLT Morphology Comment Appears Adequate; Platelet Count 146 thou/uL (130-400); RBC Distribution Width 19.1 % (11.5-14.5); Red Blood Cell (RBC) Count 3.14 mill/uL (4.20-5.40); White Blood Cell (WBC) Count 3.1 thou/uL (4.8-10.8)
[2017-09-22] MEDS ORDERED: Dextrose 50% Abboject 50 ML SYRINGE ONE (06:10)
[2017-09-22] MEDS: Lidocaine Patch Removal 1 EACH TOP SCH (08:48)
[2017-09-22] MEDS: Pantoprazole 40 MG VIAL IVP SCH (08:48)
[2017-09-22] MEDS: Furosemide 20 MG TAB PO SCH (08:48)
[2017-09-22] MEDS: Furosemide 40 MG TAB PO SCH (08:56)
--- NOTE | 2017-09-22 10:38 | PDOC.PN ---
- Subjective Encounter Start Date: 09/22/17 Encounter Start Time: 08:50 no acute night events - Objective Vital Signs & Weight: Vital Signs (12 hours) Temp Pulse Resp BP Pulse Ox 09/22/17 07:35 97.9 F 97 18 130/76 95 09/22/17 02:42 94 L Weight Admit Weight 100 lb 6.4 oz Weight 92 lb 8 oz I&O: 09/21/17 09/22/17 09/23/17 06:59 06:59 06:59 Intake Total 1600 75 Output Total 750 Balance 850 75 Result Diagrams: 09/22/17 04:39 09/22/17 03:30 Additional Labs: Accuchecks 09/22/17 09/22/17 06:44 06:10 POC Glucose 264 H 56 L* Phys Exam - Physical Examination Constitutional: NAD HEENT: PERRLA, moist MMs Neck: no nodes, supple Respiratory: no wheezing, clear to auscultation bilateral Cardiovascular: RRR Gastrointestinal: soft, non-tender, no distention Musculoskeletal: pulses present Neurological: non-focal Skin: cap refill <2 seconds Dx/Plan (1) Acute respiratory failure with hypoxia Code(s): J96.01 - ACUTE RESPIRATORY FAILURE WITH HYPOXIA Status: Acute (2) Acute urinary retention Code(s): R33.8 - OTHER RETENTION OF URINE Status: Acute Comment: with kerr + (3) Acute worsening of stage 3 chronic kidney disease Code(s): N18.3 - CHRONIC KIDNEY DISEASE, STAGE 3 (MODERATE) Status: Acute (4) Atelectasis of both lungs Code(s): J98.11 - ATELECTASIS Status: Acute (5) Colitis, CMV Code(s): A08.39 - OTHER VIRAL ENTERITIS; B25.9 - CYTOMEGALOVIRAL DISEASE, UNSPECIFIED Status: Acute (6) UTI (urinary tract infection) Status: Acute Comment: due to klebsiela (7) Hypertension Code(s): I10 - ESSENTIAL (PRIMARY) HYPERTENSION Status: Chronic Qualifiers: Hypertension type: essential hypertension Qualified Code(s): I10 - Essential (primary) hypertension (8) SLE (systemic lupus erythematosus) Code(s): M32.9 - SYSTEMIC LUPUS ERYTHEMATOSUS, UNSPECIFIED Status: Chronic Qualifiers: Systemic lupus erythematosus type: unspecified (9) Sepsis Code(s): A41.9 - SEPSIS, UNSPECIFIED ORGANISM Status: Acute Comment: Present on Admission - Plan cont current plan of care, continue antibiotics, PT/OT, respiratory therapy * . pending CMV PCR DNA ID following. Will follow with recs continue current IV abx will decreased Lasix to 20 as creatnine is tranding upwards monitor creatnine in am
[2017-09-22] MEDS ORDERED: Potassium Chloride 20 MEQ TAB PO SCH (16:30)
[2017-09-22] MEDS: Lidocaine 5% Patch TD SCH (16:52)
--- NOTE | 2017-09-22 17:01 | PRG ---
DATE OF SERVICE: 09/22/2017 SERVICE: Pulmonary Medicine. INTERVAL HISTORY: The patient is doing fine from a cardiovascular and respiratory standpoint. She d enies any current chest pain, shortness of breath, fevers or chills. She is extraordinarily weak. O utside of that, there were no significant overnight events. PHYSICAL EXAMINATION: VITAL SIGNS: Afebrile, pulse 97, blood pressure 130/76, respirations 18, saturation 95% on room air. GENERAL: The patient is awake and alert, in no apparent distress. LUNGS: Excellent air entry with no prolonged expiratory phase, wheezing, rhonchi or crackles. HEART: Normal rate, regular. ABDOMEN: Soft. A little tender to palpation in the hypogastric region. No rebound or guarding is p resent. Bowel sounds are certainly active without any high-pitched sounds. MUSCULOSKELETAL: No cyanosis or clubbing. No pitting in the bilateral lower extremities. NEUROLOGIC: Grossly nonfocal. LABORATORY DATA: WBC 3.1 and improving. Hemoglobin 8.9 and also up trending. Platelets have improv ed to 146,000. INR 1.1. Creatinine 1.57, BUN 22. Basic metabolic profile is otherwise unremarkable . Potassium 3.2, albumin 2.3. Urine culture is growing E. coli, which is growing multiple organisms , both of which are sensitive to nitrofurantoin and Zosyn. ASSESSMENT: 1. Acute hypoxic respiratory failure, resolved. 2. Pancytopenia secondary to ganciclovir, resolving. 3. Systemic lupus erythematosus. 4. CMV colitis and esophagitis, recent. 5. Pleural effusion. PLAN: We will continue supportive care moving forward. In the outpatient setting, the patient would benefit from a repeat chest x-ray. If the pleural effusion persists, additional diagnostic studies will need to be considered. We will replace the potassium. At this point, she has no ongoing requir ements for inpatient Pulmonary or Critical Care opinion, and I will sign off. Please call with addit ional questions or concerns moving forward. We will try to encourage the patient to mobilize as much as she tolerates.
[2017-09-22] MEDS ORDERED: Phenazopyridine HCl 97.5 MG TABLET PO PRN (21:00)
[2017-09-22] MEDS: Nystatin 500,000 UNITS/5 ML UDCUP PO SCH (23:49)
[2017-09-23 04:51] LABS: Anion Gap 15 mmol/L (10-20); BUN (Urea Nitrogen) 20 mg/dL (9.8-20.1); Calc. Creatinine Clearance 20 mL/min (70-130); Calcium 7.5 mg/dL (7.8-10.44); Carbon Dioxide 20 mmol/L (23-31); Chloride 108 mmol/L (98-107); Estimated GFR-MDRD 29; Potassium 3.5 mmol/L (3.5-5.1); Sodium 139 mmol/L (136-145)
[2017-09-23 04:54] LABS: Glucose 57 mg/dL (80-115)
[2017-09-23] MEDS ORDERED: Dextrose 50% Abboject 50 ML SYRINGE ONE (04:55)
[2017-09-23] MEDS: Piperacillin/Tazobactam 2.25 GM in Sodium Chloride 0.9% 100 ML IVPB SCH ×3 (05:00→17:14)
[2017-09-23] MEDS: Nystatin 500,000 UNITS/5 ML UDCUP PO SCH ×3 (05:00→17:14)
[2017-09-23 05:01] LABS: Acanthocytes MODERATE= 6-15 cells (100X) (None Seen); Anisocytosis MODERATE=16-30 cells (100X) (0-5/hpf); Band 3 % (5-11); Bite Cells SLIGHT = 2-5 cells (100X) (0-1/hpf); Hemoglobin 8.9 g/dL (12.0-16.0); Lymphocytes 18 % (21-51); MDiff Complete? YES; Mean Corpuscular HGB CONC 31.1 g/dL (32.0-36.0); Mean Corpuscular Hemoglobin 29.6 pg (27.0-31.0); Mean Corpuscular Volume 95.2 fl (81.0-99.0); Mean Platelet Volume 8.9 fL (7.4-10.4); Metamyelocyte 4 % (0-0); Monocytes 20 % (0-10); Myelocyte 6 % (0-0); Neutrophil 48 % (42-75); PLT Morphology Comment Appears Adequate; Platelet Count 170 thou/uL (130-400); Reactive Lymphocytes 1 % (0-10); Red Blood Cell (RBC) Count 3.01 mill/uL (4.20-5.40); Schistocytes MODERATE= 6-15 cells (100X) (0-1/hpf); Spherocytes SLIGHT = 1-5 cells (100X) (None Seen)
[2017-09-23] MEDS: Furosemide 20 MG TAB PO SCH (08:43)
[2017-09-23] MEDS: Lidocaine Patch Removal 1 EACH TOP SCH (08:43)
[2017-09-23 09:19] LABS: CMV log 10 Quant 2.571 (.)
[2017-09-23] MEDS: Lidocaine 5% Patch TD SCH (16:16)
--- NOTE | 2017-09-23 17:57 | PRG ---
DATE OF SERVICE: 09/23/2017 SUBJECTIVE: The patient developed some odynophagia. She was started on swish and swallow for oral c andidiasis and had 2 episodes of soft/liquid stools today and some abdominal cramps, no, respiratory symptoms. No back pain. OBJECTIVE: VITAL SIGNS: The T-max 98.9, blood pressure 130/74, pulse 104, respirations 18, O2 sat 93%. SKIN: With bruising. The oral cavity with what appears to be oral candidiasis. The ulcers are heal ing. LUNGS: With symmetric air entry, faint basilar crackles. HEART: S1, S2, regular rate. ABDOMEN: Soft, not distended with mild tenderness which is diffuse. The Villanueva catheter has been rem nava. LABORATORY DATA: CMV DNA PCR repeat was 372, which is a marked decrease from prior value which was 1 11,000. The latest creatinine was 1.73, with calculated GFR 29-33. ASSESSMENT: Systemic lupus erythematosus, on immunosuppressive regimen, stage III renal insufficienc y and cytomegalovirus viremia with gastrointestinal illness with improvement in the clinical symptoms as well as the viremia quantitation but with development of neutropenia. DISCUSSION: The patient will likely require resumption of Valcyte adjusted dose for renal function w ith careful monitoring of the WBC count. The prescription of growth factor Neupogen or similar might be required. Add Diflucan for management of oral candidiasis.
[2017-09-23] MEDS: Fluconazole 100 MG TAB PO SCH (18:31)
--- NOTE | 2017-09-23 18:48 | PDOC.PN ---
- Subjective Encounter Start Date: 09/23/17 Encounter Start Time: 18:47 Subjective: nsg notes rev, papa ovn, no new c/o, dtr @ bedside, still has loose stools -: c/o feeling weak - too weak to use ICS and work with PT - Objective Vital Signs & Weight: Vital Signs (12 hours) Temp Pulse Resp BP Pulse Ox 09/23/17 08:00 98.9 F 104 H 18 133/74 93 L Weight Admit Weight 100 lb 6.4 oz Weight 93 lb 1 oz I&O: 09/22/17 09/23/17 09/24/17 06:59 06:59 06:59 Intake Total 1600 675 Output Total 750 600 Balance 850 75 Result Diagrams: 09/23/17 04:25 09/23/17 04:25 Additional Labs: Accuchecks 09/23/17 09/23/17 16:20 05:40 POC Glucose 96 199 H Phys Exam - Physical Examination Constitutional: NAD HEENT: PERRLA, sclera anicteric dry mm Respiratory: no wheezing, no rales, no rhonchi, clear to auscultation bilateral very poor air movment - ICS approx 500cc Cardiovascular: RRR, no significant murmur, no rub Gastrointestinal: soft, non-tender, no distention, positive bowel sounds Musculoskeletal: no edema, pulses present Neurological: moves all 4 limbs anxious affect Psychiatric: A&O x 3 Dx/Plan - Plan CMV colitis * continued loose stools although pt endorses a lower total daily volume of stool loss than previously * pt c/o of BM every time she has to urinate * apprec ID c/s * pending CMV PCR DNA * continue valgancyclovir E Coli UTI, multi drug resistant * apprec ID c/s * continue with IV piptaz sepsis, improving * hemodynamically stable * recheck CBC * likely 2/2 either colitis or UTI LUIS FELIPE on CKD * reasonable UOP * continue to monitor, recheck BMP * initial urinary retention appears improved * dec lasix 3/12 to 20mg daily acute respiratory failure 2/2 atelectasis * reviewed need to participate with PT, ICS as tolerated, no matter how brief * reviewed with pt and dtr @ bedside, frequent ICS use including technique - it appears patient has not been using frequently * continue to monitor * pt at high risk for progressive atelectasis and further physical deconditioning * pt states she has chronic back pain and it has gotten harder to work with PT after being in bed so long and therefore requests to continue deferring any further PT oral thrush * on nystatin oral and diflucan * continue to monitor HTN * stable, monitor SLE * stable diet: encourage, pt at high risk for failure to thrive, malnutrition, and further physical deconditioning acitivity: as tolerated, encourage dvt ppx greater than 30 min spent at bedside d/w patient and dtr need to initiate physical therapy, ICS use. they were able to complete teachback Review of Systems - Medications/Allergies Allergies/Adverse Reactions: Allergies Allergy/AdvReac Type Severity Reaction Status Date / Time iron Allergy Severe Rash Verified 08/24/17 22:19 Sulfa (Sulfonamide Allergy Severe Rash Verified 08/24/17 22:19 Antibiotics) magnesium sulfate Allergy Verified 08/29/17 16:23 sulfate Allergy Uncoded 08/29/17 13:06 Medications: Current Medications Acetaminophen (Tylenol) 650 mg PO Q4H PRN PRN Reason: Headache/Fever or Pain Last Admin: 09/22/17 09:56 Dose: 650 mg Bisacodyl (Dulcolax) 10 mg PO DAILYPRN PRN PRN Reason: Constipation Calcium Carbonate (Tums) 1,000 mg PO Q4H PRN PRN Reason: Heartburn or Indigestion Clonidine (Catapres) 0.1 mg PO Q4H PRN PRN Reason: Systolic BP > 160 Epoetin Matt (Procrit) 20,000 units SC Q7D [facility] Last Admin: 09/18/17 11:51 Dose: 20,000 units Fluconazole (Diflucan) 100 mg PO 1800 [facility] Last Admin: 09/23/17 18:31 Dose: 100 mg Furosemide (Lasix) 20 mg PO DAILY [facility] Last Admin: 09/23/17 08:43 Dose: 20 mg Guaifenesin (Robitussin Sf) 200 mg PO Q4H PRN PRN Reason: Cough Hydralazine HCl (Apresoline) 10 mg SLOW IVP Q4H PRN PRN Reason: Systolic BP > 170 Lidocaine (Lidoderm 5% Patch) 1 patch TD 1600 [facility] Last Admin: 09/23/17 16:16 Dose: 1 patch Loratadine (Claritin) 10 mg PO DAILYPRN PRN PRN Reason: Sinus Symptoms Miscellaneous Medication (Lidocaine Patch Removal) 1 each TOP 0800 [facility] Last Admin: 09/23/17 08:43 Dose: 1 each Nitroglycerin (Nitrostat) 0.4 mg SL Q5MIN PRN PRN Reason: Chest Pain Nystatin (Mycostatin) 500,000 units PO Q6HR [facility] Last Admin: 09/23/17 17:14 Dose: 500,000 units Ondansetron HCl (Zofran) 4 mg IVP Q6H PRN PRN Reason: Nausea/Vomiting Pantoprazole Sodium (Protonix) 40 mg PO Q12HR [facility] Last Admin: 09/23/17 08:43 Dose: 40 mg Phenazopyridine HCl (Azo Standard) 97.5 mg PO BIDPRN PRN PRN Reason: URINARY BURNING/ITCHING Last Admin: 09/22/17 21:16 Dose: 97.5 mg Senna (Senokot) 2 tab PO HSPRN PRN PRN Reason: Constipation Sodium Chloride (Flush - Normal Saline) 10 ml IVF Q12HR [facility] Last Admin: 09/23/17 08:44 Dose: 10 ml Sodium Chloride (Flush - Normal Saline) 10 ml IVF PRN PRN PRN Reason: Saline Flush Tramadol HCl (Ultram) 50 mg PO Q4H PRN PRN Reason: Moderate Pain (4-6) Last Admin: 09/20/17 14:22 Dose: 50 mg Valganciclovir (Valcyte) 450 mg PO Q2D@1830 [facility]
[2017-09-24] MEDS: Nystatin 500,000 UNITS/5 ML UDCUP PO SCH ×5 (00:14→23:23)
[2017-09-24] MEDS: Furosemide 20 MG TAB PO SCH (08:12)
[2017-09-24] MEDS: Lidocaine Patch Removal 1 EACH TOP SCH (08:12)
[2017-09-24 11:12] LABS: Anion Gap 14 mmol/L (10-20); BUN (Urea Nitrogen) 17 mg/dL (9.8-20.1); Calc. Creatinine Clearance 23 mL/min (70-130); Calcium 7.6 mg/dL (7.8-10.44); Carbon Dioxide 19 mmol/L (23-31); Chloride 106 mmol/L (98-107); Estimated GFR-MDRD 33; Glucose 74 mg/dL (80-115); Potassium 3.2 mmol/L (3.5-5.1); Sodium 136 mmol/L (136-145)
[2017-09-24] MEDS: traMADol HCl 50 MG TAB PO PRN ×2 (11:17→15:59)
[2017-09-24 11:33] LABS: Acanthocytes MODERATE= 6-15 cells (100X) (None Seen); Band 7 % (5-11); Hemoglobin 9.7 g/dL (12.0-16.0); Hypochromia SLIGHT = 6-15 cells (100X) (0-5/hpf); Lymphocytes 15 % (21-51); MDiff Complete? YES; Mean Corpuscular HGB CONC 30.9 g/dL (32.0-36.0); Mean Corpuscular Hemoglobin 29.4 pg (27.0-31.0); Mean Platelet Volume 10.7 fL (7.4-10.4); Metamyelocyte 1 % (0-0); Monocytes 17 % (0-10); Neutrophil 58 % (42-75); PLT Morphology Comment Appears Adequate; Platelet Count 213 thou/uL (130-400); Polychromasia SLIGHT = 2-3 cells (100X) (0-2/hpf); Reactive Lymphocytes 2 % (0-10); Schistocytes MODERATE= 6-15 cells (100X) (0-1/hpf); White Blood Cell (WBC) Count 4.7 thou/uL (4.8-10.8)
[2017-09-24] MEDS: Lidocaine 5% Patch TD SCH (15:59)
[2017-09-24] MEDS: Fluconazole 100 MG TAB PO SCH (18:23)
--- NOTE | 2017-09-24 20:07 | PDOC.PN ---
- Subjective Encounter Start Date: 09/24/17 Encounter Start Time: 20:07 Subjective: nsg notes rev, papa ovn, c/o feeling overall weak dtr at bedside -: was able to participate with PT today, lower back hurts more than -: her chronic usual - Objective Vital Signs & Weight: Weight Admit Weight 100 lb 6.4 oz Weight 93 lb 2 oz I&O: 09/23/17 09/24/17 09/25/17 06:59 06:59 06:59 Intake Total 675 720 650 Output Total 600 Balance 75 720 650 Result Diagrams: 09/25/17 03:50 09/25/17 03:50 Phys Exam - Physical Examination Constitutional: NAD HEENT: PERRLA, moist MMs, sclera anicteric Respiratory: no wheezing, no rales, no rhonchi sig decreased air mvmt, ICS apprx 500 Cardiovascular: RRR, no significant murmur, no rub Gastrointestinal: soft, no distention Musculoskeletal: no edema, pulses present Neurological: moves all 4 limbs Psychiatric: normal affect, A&O x 3 Dx/Plan - Plan CMV colitis * 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 and previous to this adm was on valgancyclovir which is felt to be the culprit of her current pancytopenia * continued loose stools although pt endorses a lower total daily volume of stool loss than previously * apprec ID c/s * pending CMV PCR DNA * continue valgancyclovir when indicated by ID vs alternative agent E Coli UTI, multi drug resistant * apprec ID c/s * continue with IV piptaz * t/c recheck UA, if clear, t/c timing of d/c sepsis, improving * hemodynamically stable * recheck CBC * likely 2/2 either colitis or UTI LUIS FELIPE on CKD * reasonable UOP * continue to monitor, recheck BMP * initial urinary retention appears improved * dec lasix 3/12 to 20mg daily acute respiratory failure 2/2 atelectasis * reviewed need to participate with PT, ICS as tolerated, no matter how brief osteoporosis * chronic, but concern for compression fx with new pain in T spine - t/c plain film imaging and poss MRI if continued concern and pain with limited functionality oral thrush * on nystatin oral and diflucan * continue to monitor * if continued odynophagia from thrush t/c "magic mouthwash" HTN * stable, monitor SLE * stable * resume home prednisone - if continued stability, resume remainder of home regimen for SLE diet: encourage, pt at high risk for failure to thrive, malnutrition, and further physical deconditioning acitivity: as tolerated, encourage dvt ppx greater than 30 min spent at bedside d/w patient and dtr need to initiate physical therapy, ICS use. they were able to complete teachback Review of Systems - Medications/Allergies Allergies/Adverse Reactions: Allergies Allergy/AdvReac Type Severity Reaction Status Date / Time iron Allergy Severe Rash Verified 08/24/17 22:19 Sulfa (Sulfonamide Allergy Severe Rash Verified 08/24/17 22:19 Antibiotics) magnesium sulfate Allergy Verified 08/29/17 16:23 sulfate Allergy Uncoded 08/29/17 13:06 Medications: Current Medications Acetaminophen (Tylenol) 650 mg PO Q4H PRN PRN Reason: Headache/Fever or Pain Last Admin: 09/22/17 09:56 Dose: 650 mg Bisacodyl (Dulcolax) 10 mg PO DAILYPRN PRN PRN Reason: Constipation Calcium Carbonate (Tums) 1,000 mg PO Q4H PRN PRN Reason: Heartburn or Indigestion Clonidine (Catapres) 0.1 mg PO Q4H PRN PRN Reason: Systolic BP > 160 Epoetin Matt (Procrit) 20,000 units SC Q7D [facility] Last Admin: 09/18/17 11:51 Dose: 20,000 units Fluconazole (Diflucan) 100 mg PO 1800 [facility] Last Admin: 09/24/17 18:23 Dose: 100 mg Furosemide (Lasix) 20 mg PO DAILY [facility] Last Admin: 09/24/17 08:12 Dose: 20 mg Guaifenesin (Robitussin Sf) 200 mg PO Q4H PRN PRN Reason: Cough Hydralazine HCl (Apresoline) 10 mg SLOW IVP Q4H PRN PRN Reason: Systolic BP > 170 Lidocaine (Lidoderm 5% Patch) 1 patch TD 1600 [facility] Last Admin: 09/24/17 15:59 Dose: 1 patch Loratadine (Claritin) 10 mg PO DAILYPRN PRN PRN Reason: Sinus Symptoms Miscellaneous Medication (Lidocaine Patch Removal) 1 each TOP 0800 [facility] Last Admin: 09/24/17 08:12 Dose: 1 each Nitroglycerin (Nitrostat) 0.4 mg SL Q5MIN PRN PRN Reason: Chest Pain Nystatin (Mycostatin) 500,000 units PO Q6HR [facility] Last Admin: 09/25/17 05:55 Dose: 500,000 units Ondansetron HCl (Zofran) 4 mg IVP Q6H PRN PRN Reason: Nausea/Vomiting Pantoprazole Sodium (Protonix) 40 mg PO Q12HR [facility] Last Admin: 09/24/17 20:28 Dose: 40 mg Phenazopyridine HCl (Azo Standard) 97.5 mg PO BIDPRN PRN PRN Reason: URINARY BURNING/ITCHING Last Admin: 09/22/17 21:16 Dose: 97.5 mg Prednisone (Prednisone) 25 mg PO QAM-[facility] Senna (Senokot) 2 tab PO HSPRN PRN PRN Reason: Constipation Sodium Chloride (Flush - Normal Saline) 10 ml IVF Q12HR [facility] Last Admin: 09/24/17 20:28 Dose: 10 ml Sodium Chloride (Flush - Normal Saline) 10 ml IVF PRN PRN PRN Reason: Saline Flush Tramadol HCl (Ultram) 50 mg PO Q4H PRN PRN Reason: Moderate Pain (4-6) Last Admin: 09/24/17 15:59 Dose: 50 mg Valganciclovir (Valcyte) 450 mg PO Q2D@1830 [facility] Last Admin: 09/23/17 19:18 Dose: 450 mg
[2017-09-25 05:30] LABS: Anion Gap 14 mmol/L (10-20); BUN (Urea Nitrogen) 16 mg/dL (9.8-20.1); Calc. Creatinine Clearance 23 mL/min (70-130); Calcium 7.5 mg/dL (7.8-10.44); Carbon Dioxide 19 mmol/L (23-31); Chloride 106 mmol/L (98-107); Estimated GFR-MDRD 35; Glucose 63 mg/dL (80-115); Potassium 3.2 mmol/L (3.5-5.1); Sodium 136 mmol/L (136-145)
[2017-09-25] MEDS: Nystatin 500,000 UNITS/5 ML UDCUP PO SCH ×4 (05:55→22:36)
[2017-09-25 06:39] LABS: Acanthocytes MODERATE= 6-15 cells (100X) (None Seen); Anisocytosis SLIGHT = 6-15 cells (100X) (0-5/hpf); Band 11 % (5-11); Hemoglobin 9.2 g/dL (12.0-16.0); Lymphocytes 21 % (21-51); MDiff Complete? YES; Mean Corpuscular HGB CONC 31.6 g/dL (32.0-36.0); Mean Corpuscular Hemoglobin 29.7 pg (27.0-31.0); Mean Corpuscular Volume 93.8 fl (81.0-99.0); Mean Platelet Volume 11.7 fL (7.4-10.4); Monocytes 9 % (0-10); Neutrophil 59 % (42-75); Nucleated RBC 2 % (0); PLT Morphology Comment Appears Adequate; Platelet Count 198 thou/uL (130-400); RBC Distribution Width 19.7 % (11.5-14.5); Schistocytes MODERATE= 6-15 cells (100X) (0-1/hpf); White Blood Cell (WBC) Count 6.3 thou/uL (4.8-10.8)
[2017-09-25] MEDS: predniSONE 50 MG TAB PO SCH (08:42)
[2017-09-25] MEDS: Furosemide 20 MG TAB PO SCH (08:43)
[2017-09-25] MEDS: Lidocaine Patch Removal 1 EACH TOP SCH (08:44)
[2017-09-25] MEDS: Epoetin (ESRD) 20,000 UNITS/ML SC SCH (12:02)
[2017-09-25] MEDS: Lidocaine 5% Patch TD SCH (15:59)
--- NOTE | 2017-09-25 16:41 | RAD ---
THORACIC SPINE THREE VIEWS: 09/25/17 HISTORY: 72-year-old female with history of questionable compression fracture, history of severe osteoporosis. COMPARISON: Lumbar spine 09/20/17. There is severe bone demineralization. There is extensive multilevel disc osteophytosis. There is ana roximately 50% vertical height loss of T12 vertebral body, evidence for a burst fracture which appear s stable when compared to prior CT plate preparer film dated 08/25/17. Some persistent pleural and parenchymal opacity changes in the left base. No evidence for other acute thoracic spine fracture. No focal bone lesion. IMPRESSION: Stable vertebral body collapse of the T12 vertebral body. Severe bone demineralization. Generalized s pondylosis. Persistent pleural and parenchymal opacity changes in the left base. POS: [place]
[2017-09-25] MEDS: Fluconazole 100 MG TAB PO SCH (17:37)
[2017-09-25 18:53] LABS: Bilirubin Negative (Negative); Blood, Urine Small (Negative); Clarity CLEAR (Clear); Glucose, Urine (Dipstick) Negative (Negative); Leukocyte Negative (Negative); Nitrite Negative (Negative); Protein, Urine (Dipstick) 100 mg/dL (Neg-Trace); Specific Gravity, Urine 1.012 (1.002-1.036); Urobilinogen 0.2 mg/dL (0.2-1.0); pH, Urine 6.5 (5.0-9.0)
[2017-09-25 18:58] LABS: Bacteria/HPF None Seen HPF (None Seen); Hyaline Casts/LPF 0-3 HYALINE CAST LPF (0-3 Hyaline); Pathc Cast-AUWi Flag 0.27 (0-2.49); WBC/HPF 0-3 HPF (0-3)
[2017-09-25] MEDS: Mycophenolate 250 MG CAP PO SCH (21:44)
[2017-09-25] MEDS: traMADol HCl 50 MG TAB PO PRN (22:35)
--- NOTE | 2017-09-25 23:42 | PDOC.PN ---
- Subjective Encounter Start Date: 09/25/17 Encounter Start Time: 18:00 Subjective: nsg notes rev, papa ovn, dtr not avail at bedside, pt no new co - Objective Vital Signs & Weight: Vital Signs (12 hours) Temp Pulse Resp BP Pulse Ox 09/25/17 20:00 98.5 F 104 H 20 130/74 93 L Weight Admit Weight 100 lb 6.4 oz Weight 95 lb 9 oz I&O: 09/24/17 09/25/17 09/26/17 06:59 06:59 06:59 Intake Total 720 1010 780 Balance 720 1010 780 Result Diagrams: 09/25/17 03:50 09/26/17 03:51 Phys Exam - Physical Examination Constitutional: NAD HEENT: PERRLA, sclera anicteric slightly dry mm, no visual thrush apprec Respiratory: no wheezing, no rales, no rhonchi, clear to auscultation bilateral Cardiovascular: RRR, no significant murmur, no rub Gastrointestinal: soft, non-tender, no distention, positive bowel sounds Musculoskeletal: no edema, pulses present Neurological: moves all 4 limbs Psychiatric: normal affect, A&O x 3 Dx/Plan - Plan 72F on chronic immunosuppressives for her SLE who also has chronic CMV viremia with intermittent colitis previously on valgancyclovir who initially presented with progressive weakness and was found to be newly progressively pancytopenic on admission CMV colitis * 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 and previous to this adm was on valgancyclovir which is felt to be the culprit of her current pancytopenia * continued loose stools although pt endorses a lower total daily volume of stool loss than previously * apprec ID c/s * pending CMV PCR DNA * continue valgancyclovir when indicated by ID vs alternative agent E Coli UTI, multi drug resistant * apprec ID c/s * continue with IV piptaz * t/c recheck UA, and trial d/c ABX if UA bland sepsis, resolved * hemodynamically stable * likely 2/2 either colitis or UTI LUIS FELIPE on CKD, improving * reasonable UOP * likely 2/2 UTI + sepsis * continue to monitor, recheck BMP * dec lasix 3/12 to 20mg daily acute respiratory failure 2/2 atelectasis * reviewed need to participate with PT, ICS as tolerated, no matter how brief osteoporosis * chronic, but concern for compression fx with new pain in T spine * plain films unrevealing, plan for routine MRI in AM oral thrush, symptomatically improved * on nystatin oral and diflucan * continue to monitor * ihas been causing odynophagia which is currently improved HTN * stable, monitor SLE * stable * stepwise resumption of home immunosuppresive therapy as pancytopenia improves pancytopenia * was seen earlier during hospitalization by hematology * felt to be 2/2 valgangyclovir * currently on procrit q7d * counts improving diet: encourage, pt at high risk for failure to thrive, malnutrition, and further physical deconditioning acitivity: as tolerated, encourage dvt ppx d/w patient and her bedside nurse Review of Systems - Medications/Allergies Allergies/Adverse Reactions: Allergies Allergy/AdvReac Type Severity Reaction Status Date / Time iron Allergy Severe Rash Verified 08/24/17 22:19 Sulfa (Sulfonamide Allergy Severe Rash Verified 08/24/17 22:19 Antibiotics) magnesium sulfate Allergy Verified 08/29/17 16:23 sulfate Allergy Uncoded 08/29/17 13:06 Medications: Current Medications Acetaminophen (Tylenol) 650 mg PO Q4H PRN PRN Reason: Headache/Fever or Pain Last Admin: 09/22/17 09:56 Dose: 650 mg Bisacodyl (Dulcolax) 10 mg PO DAILYPRN PRN PRN Reason: Constipation Calcium Carbonate (Tums) 1,000 mg PO Q4H PRN PRN Reason: Heartburn or Indigestion Clonidine (Catapres) 0.1 mg PO Q4H PRN PRN Reason: Systolic BP > 160 Epoetin Matt (Procrit) 20,000 units SC Q7D [facility] Last Admin: 09/25/17 12:02 Dose: 20,000 units Fluconazole (Diflucan) 100 mg PO 1800 [facility] Last Admin: 09/25/17 17:37 Dose: 100 mg Furosemide (Lasix) 20 mg PO DAILY [facility] Last Admin: 09/25/17 08:43 Dose: 20 mg Guaifenesin (Robitussin Sf) 200 mg PO Q4H PRN PRN Reason: Cough Hydralazine HCl (Apresoline) 10 mg SLOW IVP Q4H PRN PRN Reason: Systolic BP > 170 Lidocaine (Lidoderm 5% Patch) 1 patch TD 1600 [facility] Last Admin: 09/25/17 15:59 Dose: 1 patch Loratadine (Claritin) 10 mg PO DAILYPRN PRN PRN Reason: Sinus Symptoms Miscellaneous Medication (Lidocaine Patch Removal) 1 each TOP 0800 [facility] Last Admin: 09/25/17 08:44 Dose: 1 each Mycophenolate Mofetil (Cellcept) 1,000 mg PO BID [facility] Last Admin: 09/25/17 21:44 Dose: 1,000 mg Nitroglycerin (Nitrostat) 0.4 mg SL Q5MIN PRN PRN Reason: Chest Pain Nystatin (Mycostatin) 500,000 units PO Q6HR [facility] Last Admin: 09/25/17 22:36 Dose: 500,000 units Ondansetron HCl (Zofran) 4 mg IVP Q6H PRN PRN Reason: Nausea/Vomiting Pantoprazole Sodium (Protonix) 40 mg PO Q12HR [facility] Last Admin: 09/25/17 21:41 Dose: 40 mg Phenazopyridine HCl (Azo Standard) 97.5 mg PO BIDPRN PRN PRN Reason: URINARY BURNING/ITCHING Last Admin: 09/22/17 21:16 Dose: 97.5 mg Prednisone (Prednisone) 25 mg PO QAM-WM [facility] Last Admin: 09/25/17 08:42 Dose: 25 mg Senna (Senokot) 2 tab PO HSPRN PRN PRN Reason: Constipation Sodium Chloride (Flush - Normal Saline) 10 ml IVF Q12HR [facility] Last Admin: 09/25/17 21:42 Dose: 10 ml Sodium Chloride (Flush - Normal Saline) 10 ml IVF PRN PRN PRN Reason: Saline Flush Tramadol HCl (Ultram) 50 mg PO Q4H PRN PRN Reason: Moderate Pain (4-6) Last Admin: 09/25/17 22:35 Dose: 50 mg Valganciclovir (Valcyte) 450 mg PO Q2D@1830 [facility] Last Admin: 09/25/17 17:38 Dose: 450 mg
[2017-09-26] MEDS: Nystatin 500,000 UNITS/5 ML UDCUP PO SCH ×4 (05:19→22:44)
[2017-09-26 05:46] LABS: Anion Gap 13 mmol/L (10-20); BUN (Urea Nitrogen) 18 mg/dL (9.8-20.1); Calc. Creatinine Clearance 18 mL/min (70-130); Calcium 7.6 mg/dL (7.8-10.44); Carbon Dioxide 20 mmol/L (23-31); Chloride 104 mmol/L (98-107); Estimated GFR-MDRD 25; Glucose 91 mg/dL (80-115); Potassium 3.2 mmol/L (3.5-5.1); Sodium 134 mmol/L (136-145)
[2017-09-26 06:33] LABS: Acanthocytes MODERATE= 6-15 cells (100X) (None Seen); Anisocytosis SLIGHT = 6-15 cells (100X) (0-5/hpf); Band 7 % (5-11); Burr Cells SLIGHT = 2-5 cells (100X) (0-1/hpf); Lymphocytes 4 % (21-51); MDiff Complete? YES; Mean Corpuscular HGB CONC 30.5 g/dL (32.0-36.0); Mean Corpuscular Hemoglobin 29.2 pg (27.0-31.0); Mean Corpuscular Volume 95.7 fl (81.0-99.0); Mean Platelet Volume 12.2 fL (7.4-10.4); Metamyelocyte 1 % (0-0); Monocytes 14 % (0-10); Myelocyte 2 % (0-0); Neutrophil 72 % (42-75); Platelet Count 259 thou/uL (130-400); RBC Distribution Width 22.7 % (11.5-14.5); Red Blood Cell (RBC) Count 3.07 mill/uL (4.20-5.40); Schistocytes SLIGHT = 2-5 cells (100X) (0-1/hpf); White Blood Cell (WBC) Count 7.2 thou/uL (4.8-10.8)
[2017-09-26] MEDS: Hydroxychloroquine Sulfate 200 MG TAB PO SCH (09:02)
[2017-09-26] MEDS: Furosemide 20 MG TAB PO SCH (09:02)
[2017-09-26] MEDS: predniSONE 50 MG TAB PO SCH (09:03)
[2017-09-26] MEDS: Acetaminophen 325 MG TAB PO PRN ×2 (09:06→16:02)
[2017-09-26] MEDS: Lidocaine Patch Removal 1 EACH TOP SCH (09:08)
[2017-09-26] MEDS: Mycophenolate 250 MG CAP PO SCH ×2 (10:09→20:22)
[2017-09-26] MEDS: traMADol HCl 50 MG TAB PO PRN (10:18)
--- NOTE | 2017-09-26 13:23 | PDOC.PN ---
- Subjective Encounter Start Date: 09/26/17 Encounter Start Time: 13:21 Patient seen at bedside. No overnight events, still complaining of backpain. Walked 6 feet today. - Objective MAR Reviewed: Yes Vital Signs & Weight: Vital Signs (12 hours) Temp Pulse Resp BP Pulse Ox 09/26/17 08:00 98.1 F 104 H 14 121/70 93 L Weight Admit Weight 100 lb 6.4 oz Weight 96 lb 2 oz I&O: 09/25/17 09/26/17 09/27/17 06:59 06:59 06:59 Intake Total 1010 1020 Balance 1010 1020 Result Diagrams: 09/26/17 03:51 09/26/17 03:51 Phys Exam - Physical Examination Constitutional: NAD HEENT: moist MMs Neck: no JVD Respiratory: clear to auscultation bilateral Cardiovascular: RRR Gastrointestinal: soft Musculoskeletal: pulses present Neurological: moves all 4 limbs Psychiatric: A&O x 3 Dx/Plan (1) Back pain Code(s): M54.9 - DORSALGIA, UNSPECIFIED Status: Acute Qualifiers: Back pain location: low back pain (2) Colitis, CMV Code(s): A08.39 - OTHER VIRAL ENTERITIS; B25.9 - CYTOMEGALOVIRAL DISEASE, UNSPECIFIED Status: Acute (3) Hypokalemia Code(s): E87.6 - HYPOKALEMIA Status: Acute (4) Physical deconditioning Code(s): R53.81 - OTHER MALAISE Status: Chronic (5) SLE (systemic lupus erythematosus) Code(s): M32.9 - SYSTEMIC LUPUS ERYTHEMATOSUS, UNSPECIFIED Status: Chronic Qualifiers: Systemic lupus erythematosus type: unspecified - Plan cont current plan of care, plan discussed w/ family, 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 * For MRI of L-Spine and T-Spine later today to rule out compression fracture * Continue with Diflucan for oral candidiasis * Monitor CBC ( Procrit as needed) * PT/OT OOB *
[2017-09-26] MEDS: Fluconazole 100 MG TAB PO SCH (16:00)
--- NOTE | 2017-09-26 16:59 | MRI ---
NONCONTRAST ENHANCED MRI IMAGES THORACIC SPINE: 09/26/17 Images demonstrate kyphosis and osteoporosis of the thoracic spine. The patient has an old compressio n fracture with approximately 40% height loss involving the superior aspect of the T12 vertebral leve l. No evidence of acute thoracic spine lesion seen. The spinal cord is unremarkable. the old compress ed T12 vertebral body has some retropulsion of the posterior aspect of the T12 vertebral body which e xtends into the spinal canal resulting in approximately 40% caliber reduction of the anterior aspect of the AP dimension of the spinal canal at the T12 level. There is some compression of the thecal sac but no definite evidence of cord compression at this level. There is atrophy of the left kidney. IMPRESSION: 1. T12 compression fracture which is old with retropulsion into the spinal canal. 2. Marked atrophy of the left kidney. POS: [place]
[2017-09-26] MEDS: Lidocaine 5% Patch TD SCH (17:16)
--- NOTE | 2017-09-26 17:18 | MRI ---
LUMBAR SPINE MRI WITHOUT IV CONTRAST 09/26/17 HISTORY: 72-year-old female with history of severe osteoporosis and bony tenderness to palpation. Back pain fo r several weeks. COMPARISON: Thoracic spine MRI 09/26/17. FINDINGS: There is an old appearing burst fracture of the T12 vertebral body with a large retropulsed fragment superiorly resulting in some mild indention of the spinal cord at this level. there is a very small a trophic appearing left kidney. There are generalized disc desiccation change with some ligament and f acet hypertrophic changes. At L1-L2, L2-L3, and L3-L4, there is no significant canal or foraminal stenosis. At L4-L5, there are prominent facet arthrosis changes with fluid within both facet joints somewhat mo re prominent on the left side as well as a small arachnoid cyst extending into the right sided ligame ntum flavum with mild narrowing of both right and left dorsal lateral recesses but without significan t central canal stenosis or foraminal stenosis. L5-S1 level is unremarkable. IMPRESSION: Old burst fracture of T12 vertebral body with a large posterior fragment resulting in some ventral c anal stenosis and some minimal anterior cord indention. Significant facet arthrosis changes at L4-L5 with mild narrowing of the dorsal lateral recesses. No evidence for other significant acute process. POS: [place]
[2017-09-27] MEDS: Nystatin 500,000 UNITS/5 ML UDCUP PO SCH ×4 (05:03→23:49)
[2017-09-27 05:20] LABS: Anion Gap 16 mmol/L (10-20); BUN (Urea Nitrogen) 21 mg/dL (9.8-20.1); Calc. Creatinine Clearance 16 mL/min (70-130); Calcium 7.7 mg/dL (7.8-10.44); Carbon Dioxide 18 mmol/L (23-31); Chloride 104 mmol/L (98-107); Estimated GFR-MDRD 22; Glucose 91 mg/dL (80-115); Potassium 3.4 mmol/L (3.5-5.1); Sodium 135 mmol/L (136-145)
[2017-09-27 05:44] LABS: Acanthocytes MODERATE= 6-15 cells (100X) (None Seen); Anisocytosis SLIGHT = 6-15 cells (100X) (0-5/hpf); Band 5 % (5-11); Hemoglobin 8.9 g/dL (12.0-16.0); Lymphocytes 7 % (21-51); MDiff Complete? YES; Mean Corpuscular HGB CONC 31.3 g/dL (32.0-36.0); Mean Corpuscular Hemoglobin 29.1 pg (27.0-31.0); Mean Corpuscular Volume 92.8 fl (81.0-99.0); Mean Platelet Volume 10.9 fL (7.4-10.4); Metamyelocyte 1 % (0-0); Monocytes 23 % (0-10); Myelocyte 1 % (0-0); Neutrophil 63 % (42-75); PLT Morphology Comment Appears Adequate; Platelet Count 326 thou/uL (130-400); Polychromasia SLIGHT = 2-3 cells (100X) (0-2/hpf); Red Blood Cell (RBC) Count 3.07 mill/uL (4.20-5.40); Schistocytes SLIGHT = 2-5 cells (100X) (0-1/hpf); White Blood Cell (WBC) Count 11.5 thou/uL (4.8-10.8)
[2017-09-27] MEDS: Lidocaine Patch Removal 1 EACH TOP SCH (08:52)
[2017-09-27] MEDS: Hydroxychloroquine Sulfate 200 MG TAB PO SCH (10:41)
[2017-09-27] MEDS: predniSONE 50 MG TAB PO SCH (10:42)
[2017-09-27] MEDS: Furosemide 20 MG TAB PO SCH (10:42)
[2017-09-27] MEDS: Mycophenolate 250 MG CAP PO SCH ×2 (10:44→20:35)
[2017-09-27] MEDS: Acetaminophen 325 MG TAB PO PRN (12:18)
[2017-09-27] MEDS: Lidocaine 5% Patch TD SCH (14:59)
--- NOTE | 2017-09-27 16:59 | PDOC.PN ---
- Subjective Encounter Start Date: 09/27/17 Encounter Start Time: 16:57 Subjective: Seen and examined still with back pain - Objective Vital Signs & Weight: Vital Signs (12 hours) Temp Pulse Resp BP 09/27/17 08:00 98.0 F 91 16 132/74 09/27/17 07:51 98 F 91 16 Weight Admit Weight 100 lb 6.4 oz Weight 96 lb 2 oz I&O: 09/26/17 09/27/17 09/28/17 06:59 06:59 06:59 Intake Total 1020 980 Balance 1020 980 Result Diagrams: 09/27/17 03:45 09/27/17 03:45 Phys Exam - Physical Examination Constitutional: NAD HEENT: PERRLA, moist MMs, sclera anicteric, TM's clear, oral pharynx no lesions Neck: no nodes, no JVD, supple, full ROM Respiratory: no wheezing, no rales, no rhonchi, clear to auscultation bilateral Cardiovascular: RRR, no significant murmur, no rub Gastrointestinal: soft, non-tender, no distention, positive bowel sounds Musculoskeletal: pulses present Dx/Plan (1) Back pain Code(s): M54.9 - DORSALGIA, UNSPECIFIED Status: Acute Qualifiers: Back pain location: low back pain (2) Acute respiratory failure with hypoxia Code(s): J96.01 - ACUTE RESPIRATORY FAILURE WITH HYPOXIA Status: Acute (3) Acute urinary retention Code(s): R33.8 - OTHER RETENTION OF URINE Status: Acute Comment: with kerr + (4) Acute worsening of stage 3 chronic kidney disease Code(s): N18.3 - CHRONIC KIDNEY DISEASE, STAGE 3 (MODERATE) Status: Acute (5) Atelectasis of both lungs Code(s): J98.11 - ATELECTASIS Status: Acute (6) Colitis, CMV Code(s): A08.39 - OTHER VIRAL ENTERITIS; B25.9 - CYTOMEGALOVIRAL DISEASE, UNSPECIFIED Status: Acute (7) Emphysematous cystitis Code(s): N30.80 - OTHER CYSTITIS WITHOUT HEMATURIA Status: Acute (8) Esophagitis, CMV Code(s): K20.8 - OTHER ESOPHAGITIS; B25.8 - OTHER CYTOMEGALOVIRAL DISEASES Status: Acute (9) Chronic anemia Code(s): D64.9 - ANEMIA, UNSPECIFIED Status: Chronic (10) Hyperlipidemia Code(s): E78.5 - HYPERLIPIDEMIA, UNSPECIFIED Status: Chronic Qualifiers: Hyperlipidemia type: unspecified Qualified Code(s): E78.5 - Hyperlipidemia , unspecified (11) Physical deconditioning Code(s): R53.81 - OTHER MALAISE Status: Chronic (12) SLE (systemic lupus erythematosus) Code(s): M32.9 - SYSTEMIC LUPUS ERYTHEMATOSUS, UNSPECIFIED Status: Chronic Qualifiers: Systemic lupus erythematosus type: unspecified (13) Metabolic acidosis Code(s): E87.2 - ACIDOSIS Status: Acute - Plan cont current plan of care, plan discussed w/ family, PT/OT, psychotherapist social worker, respiratory therapy Multiple old vertebral fractures identified -: Pain management -: Bicarb supplemetation -: May need vid supplementation * .
[2017-09-27] MEDS: Fluconazole 100 MG TAB PO SCH (17:11)
[2017-09-27] MEDS ORDERED: Clopidogrel Bisulfate 75 MG TAB ONE (19:59)
[2017-09-28] MEDS: Nystatin 500,000 UNITS/5 ML UDCUP PO SCH ×4 (04:08→23:18)
[2017-09-28] MEDS: Acetaminophen 325 MG TAB PO PRN ×2 (04:08→15:35)
[2017-09-28 05:46] LABS: Anion Gap 15 mmol/L (10-20); BUN (Urea Nitrogen) 24 mg/dL (9.8-20.1); Calc. Creatinine Clearance 18 mL/min (70-130); Calcium 7.8 mg/dL (7.8-10.44); Carbon Dioxide 22 mmol/L (23-31); Chloride 102 mmol/L (98-107); Estimated GFR-MDRD 24; Glucose 94 mg/dL (80-115); Potassium 3.4 mmol/L (3.5-5.1); Sodium 136 mmol/L (136-145)
[2017-09-28 05:56] LABS: Acanthocytes MODERATE= 6-15 cells (100X) (None Seen); Anisocytosis SLIGHT = 6-15 cells (100X) (0-5/hpf); Band 5 % (5-11); Burr Cells SLIGHT = 2-5 cells (100X) (0-1/hpf); Hemoglobin 9.2 g/dL (12.0-16.0); Hypochromia SLIGHT = 6-15 cells (100X) (0-5/hpf); Lymphocytes 3 % (21-51); MDiff Complete? YES; Mean Corpuscular HGB CONC 30.9 g/dL (32.0-36.0); Mean Corpuscular Hemoglobin 29.1 pg (27.0-31.0); Monocytes 9 % (0-10); Myelocyte 1 % (0-0); Neutrophil 81 % (42-75); Nucleated RBC 1 % (0); Platelet Count 387 thou/uL (130-400); Polychromasia SLIGHT = 2-3 cells (100X) (0-2/hpf); RBC Distribution Width 22.9 % (11.5-14.5); Reactive Lymphocytes 1 % (0-10); Red Blood Cell (RBC) Count 3.16 mill/uL (4.20-5.40); Schistocytes SLIGHT = 2-5 cells (100X) (0-1/hpf); White Blood Cell (WBC) Count 11.2 thou/uL (4.8-10.8)
[2017-09-28] MEDS: Lidocaine Patch Removal 1 EACH TOP SCH (08:59)
--- NOTE | 2017-09-28 09:51 | PDOC.PN ---
- Subjective Encounter Start Date: 09/28/17 Encounter Start Time: 09:50 Subjective: Seen and examined still with back pain - Objective Vital Signs & Weight: Vital Signs (12 hours) Temp Pulse Resp BP Pulse Ox 09/28/17 08:17 97.0 F L 104 H 16 144/88 H 94 L 09/28/17 08:00 97.0 F L 104 H 16 Weight Admit Weight 100 lb 6.4 oz Weight 96 lb 2 oz I&O: 09/27/17 09/28/17 09/29/17 06:59 06:59 06:59 Intake Total 980 480 Balance 980 480 Result Diagrams: 09/28/17 04:25 09/28/17 04:25 Phys Exam - Physical Examination Constitutional: NAD HEENT: PERRLA, moist MMs, sclera anicteric, TM's clear, oral pharynx no lesions Neck: no nodes, no JVD, supple, full ROM Respiratory: no wheezing, no rales, no rhonchi, clear to auscultation bilateral Cardiovascular: RRR, no significant murmur, no rub Gastrointestinal: soft, non-tender, no distention, positive bowel sounds Musculoskeletal: no edema, pulses present Dx/Plan (1) Back pain Code(s): M54.9 - DORSALGIA, UNSPECIFIED Status: Acute Qualifiers: Back pain location: low back pain (2) Acute respiratory failure with hypoxia Code(s): J96.01 - ACUTE RESPIRATORY FAILURE WITH HYPOXIA Status: Acute (3) Acute urinary retention Code(s): R33.8 - OTHER RETENTION OF URINE Status: Acute Comment: with kerr + (4) Acute worsening of stage 3 chronic kidney disease Code(s): N18.3 - CHRONIC KIDNEY DISEASE, STAGE 3 (MODERATE) Status: Acute (5) Atelectasis of both lungs Code(s): J98.11 - ATELECTASIS Status: Acute (6) Colitis, CMV Code(s): A08.39 - OTHER VIRAL ENTERITIS; B25.9 - CYTOMEGALOVIRAL DISEASE, UNSPECIFIED Status: Acute (7) Emphysematous cystitis Code(s): N30.80 - OTHER CYSTITIS WITHOUT HEMATURIA Status: Acute (8) Esophagitis, CMV Code(s): K20.8 - OTHER ESOPHAGITIS; B25.8 - OTHER CYTOMEGALOVIRAL DISEASES Status: Acute (9) Chronic anemia Code(s): D64.9 - ANEMIA, UNSPECIFIED Status: Chronic (10) Hyperlipidemia Code(s): E78.5 - HYPERLIPIDEMIA, UNSPECIFIED Status: Chronic Qualifiers: Hyperlipidemia type: unspecified Qualified Code(s): E78.5 - Hyperlipidemia , unspecified (11) Physical deconditioning Code(s): R53.81 - OTHER MALAISE Status: Chronic (12) SLE (systemic lupus erythematosus) Code(s): M32.9 - SYSTEMIC LUPUS ERYTHEMATOSUS, UNSPECIFIED Status: Chronic Qualifiers: Systemic lupus erythematosus type: unspecified (13) Metabolic acidosis Code(s): E87.2 - ACIDOSIS Status: Acute - Plan plan discussed w/ family, PT/OT, oncology social work Pain management -: Metabolic acidosis is improving -: May need Kyphoplasty-Consider Ortho or IR consult for kyphoplasty on friday * .
[2017-09-28] MEDS: Hydroxychloroquine Sulfate 200 MG TAB PO SCH (10:52)
[2017-09-28] MEDS: Furosemide 20 MG TAB PO SCH (10:52)
[2017-09-28] MEDS: predniSONE 50 MG TAB PO SCH (10:52)
[2017-09-28] MEDS: Mycophenolate 250 MG CAP PO SCH ×2 (10:52→20:51)
[2017-09-28] MEDS: Lidocaine 5% Patch TD SCH (15:35)
[2017-09-28] MEDS: Fluconazole 100 MG TAB PO SCH (17:06)
[2017-09-29] MEDS: Acetaminophen 325 MG TAB PO PRN ×3 (05:23→21:12)
[2017-09-29] MEDS: Nystatin 500,000 UNITS/5 ML UDCUP PO SCH ×3 (05:24→17:28)
[2017-09-29 06:26] LABS: Anion Gap 17 mmol/L (10-20); BUN (Urea Nitrogen) 27 mg/dL (9.8-20.1); Calc. Creatinine Clearance 17 mL/min (70-130); Calcium 7.9 mg/dL (7.8-10.44); Carbon Dioxide 21 mmol/L (23-31); Estimated GFR-MDRD 23; Glucose 68 mg/dL (80-115); Potassium 3.1 mmol/L (3.5-5.1)
[2017-09-29 06:39] LABS: Chloride 103 mmol/L (98-107); Sodium 138 mmol/L (136-145)
[2017-09-29 06:42] LABS: Acanthocytes MODERATE= 6-15 cells (100X) (None Seen); Band 15 % (5-11); Elliptocytes SLIGHT = 2-5 cells (100X) (0-1/hpf); Hemoglobin 9.5 g/dL (12.0-16.0); Lymphocytes 4 % (21-51); MDiff Complete? YES; Mean Corpuscular HGB CONC 31.2 g/dL (32.0-36.0); Mean Corpuscular Hemoglobin 28.8 pg (27.0-31.0); Mean Corpuscular Volume 92.1 fl (81.0-99.0); Mean Platelet Volume 10.2 fL (7.4-10.4); Monocytes 8 % (0-10); Neutrophil 73 % (42-75); Nucleated RBC 1 % (0); Platelet Count 395 thou/uL (130-400); Polychromasia MODERATE = 3-4 cells (100X) (0-2/hpf); RBC Distribution Width 23.3 % (11.5-14.5); Red Blood Cell (RBC) Count 3.29 mill/uL (4.20-5.40); Schistocytes SLIGHT = 2-5 cells (100X) (0-1/hpf); White Blood Cell (WBC) Count 11.3 thou/uL (4.8-10.8)
[2017-09-29] MEDS: Lidocaine Patch Removal 1 EACH TOP SCH (08:26)
[2017-09-29] MEDS: predniSONE 50 MG TAB PO SCH (08:30)
[2017-09-29] MEDS: Furosemide 20 MG TAB PO SCH (08:31)
[2017-09-29] MEDS: Hydroxychloroquine Sulfate 200 MG TAB PO SCH (08:31)
[2017-09-29] MEDS: Mycophenolate 250 MG CAP PO SCH ×2 (10:02→21:13)
--- NOTE | 2017-09-29 12:41 | PDOC.PN ---
- Subjective Encounter Start Date: 09/29/17 Encounter Start Time: 12:39 Patient seen and examined, states she continues to have significant back pain otherwise no new issues. Family at bedside, all questions answered. - Objective MAR Reviewed: Yes Vital Signs & Weight: Vital Signs (12 hours) Temp Pulse Resp BP Pulse Ox 09/29/17 11:32 98.9 F 99 16 137/77 95 09/29/17 08:00 98.2 F 96 18 09/29/17 05:27 93 L Weight Admit Weight 100 lb 6.4 oz Weight 96 lb 2 oz I&O: 09/28/17 09/29/17 09/30/17 06:59 06:59 06:59 Intake Total 480 480 240 Balance 480 480 240 Result Diagrams: 09/29/17 05:40 09/29/17 05:40 Phys Exam - Physical Examination Constitutional: NAD HEENT: PERRLA, moist MMs Neck: no nodes, no JVD Respiratory: no wheezing, no rales Cardiovascular: RRR, no significant murmur, no rub Gastrointestinal: soft, non-tender, no distention Musculoskeletal: no edema, pulses present Neurological: non-focal, normal sensation significant back pain while trying to sit up Psychiatric: normal affect, A&O x 3 Skin: no rash, normal turgor Dx/Plan (1) Back pain Code(s): M54.9 - DORSALGIA, UNSPECIFIED Status: Acute Qualifiers: Back pain location: low back pain (2) Metabolic acidosis Code(s): E87.2 - ACIDOSIS Status: Acute (3) UTI (urinary tract infection) Status: Acute Comment: due to klebsiela (4) Chronic anemia Code(s): D64.9 - ANEMIA, UNSPECIFIED Status: Chronic (5) Hyperlipidemia Code(s): E78.5 - HYPERLIPIDEMIA, UNSPECIFIED Status: Chronic Qualifiers: Hyperlipidemia type: unspecified Qualified Code(s): E78.5 - Hyperlipidemia , unspecified (6) Hypertension Code(s): I10 - ESSENTIAL (PRIMARY) HYPERTENSION Status: Chronic Qualifiers: Hypertension type: essential hypertension Qualified Code(s): I10 - Essential (primary) hypertension (7) Physical deconditioning Code(s): R53.81 - OTHER MALAISE Status: Chronic - Plan * T12 spinal fracture with compression of the spinal nerve, will consult neurosurgery for input * pain control * continue current plan of care for now with no changes from a medical perspective * will await neuro surg recommendations * labs in am * case and plan d/w patient and family at length, they understand and agree with this plan
[2017-09-29] MEDS: Lidocaine 5% Patch TD SCH (16:43)
[2017-09-29] MEDS: Fluconazole 100 MG TAB PO SCH (17:28)
--- NOTE | 2017-09-29 18:14 | PRG ---
DATE OF SERVICE: 09/29/2017 SUBJECTIVE: Feeling better, was actually constipated for a few days and had two soft bowel movements earlier today having back pain and apparently, she had a compression fracture. Will be evaluated by Neurosurgery to see if she would be eligible for any intervention or if conservative management is r ecommended. OBJECTIVE: VITAL SIGNS: T-max 98.9. Other vital signs are normal. GENERAL: Awake, alert, oriented, appears in good spirits. LUNGS: Clear. HEART: S1, S2, regular rate. ABDOMEN: Soft. Able to move extremities equally. LABORATORY DATA: White cell count 11.3, hemoglobin 9.5, platelets 395 with 15% bands. Sodium 138 an d creatinine 2.12. ASSESSMENT: Systemic lupus erythematosus, stage III renal insufficiency, cytomegalovirus viremia, ga strointestinal illness with improvement as well as improvement in viremia load, neutropenia felt to b e secondary to the Valcyte. Discontinuation and resumption at a lower dose which will be continued a t least as long as the GFR is above 10. Duration of therapy with Valcyte will be until viremia is ernandez ppressed and maybe longer depending on tolerance issues as well as persistence of immunosuppression.
[2017-09-30] MEDS: Nystatin 500,000 UNITS/5 ML UDCUP PO SCH ×4 (00:50→17:05)
[2017-09-30] MEDS: Hydroxychloroquine Sulfate 200 MG TAB PO SCH (08:21)
[2017-09-30] MEDS: predniSONE 50 MG TAB PO SCH (08:22)
[2017-09-30] MEDS: Furosemide 20 MG TAB PO SCH (08:22)
[2017-09-30] MEDS: Mycophenolate 250 MG CAP PO SCH ×2 (08:23→22:11)
[2017-09-30] MEDS: Lidocaine Patch Removal 1 EACH TOP SCH (09:02)
--- NOTE | 2017-09-30 15:45 | PDOC.PN ---
- Subjective Encounter Start Date: 09/30/17 Encounter Start Time: 10:00 Patient seen and examined, no new issues or complaints, continues to have same back pain as before. No family at bedside, all questions answered. - Objective MAR Reviewed: Yes Vital Signs & Weight: Vital Signs (12 hours) Temp Pulse Resp BP Pulse Ox 09/30/17 08:00 98.0 F 98 16 145/83 H 93 L Weight Admit Weight 100 lb 6.4 oz Weight 99 lb I&O: 09/29/17 09/30/17 10/01/17 06:59 06:59 06:59 Intake Total 480 1080 Balance 480 1080 Result Diagrams: 09/29/17 05:40 09/29/17 05:40 Phys Exam - Physical Examination Constitutional: NAD HEENT: PERRLA, moist MMs, sclera anicteric Neck: no nodes, no JVD, supple Respiratory: no wheezing, no rales, no rhonchi Cardiovascular: RRR, no significant murmur, no rub Gastrointestinal: soft, non-tender, no distention Musculoskeletal: no edema, pulses present +straight leg raise test B/L Neurological: non-focal, normal sensation Dx/Plan (1) Back pain Code(s): M54.9 - DORSALGIA, UNSPECIFIED Status: Acute Qualifiers: Back pain location: low back pain (2) Metabolic acidosis Code(s): E87.2 - ACIDOSIS Status: Acute (3) UTI (urinary tract infection) Status: Acute Comment: due to klebsiela (4) Chronic anemia Code(s): D64.9 - ANEMIA, UNSPECIFIED Status: Chronic (5) Hyperlipidemia Code(s): E78.5 - HYPERLIPIDEMIA, UNSPECIFIED Status: Chronic Qualifiers: Hyperlipidemia type: unspecified Qualified Code(s): E78.5 - Hyperlipidemia , unspecified (6) Hypertension Code(s): I10 - ESSENTIAL (PRIMARY) HYPERTENSION Status: Chronic Qualifiers: Hypertension type: essential hypertension Qualified Code(s): I10 - Essential (primary) hypertension (7) Physical deconditioning Code(s): R53.81 - OTHER MALAISE Status: Chronic - Plan * Neurosurgery input pending * if no plans for surgery then DC plans to rehab vs LTAC vs SNF vs home with home health * continue current plan of care with no changes for now * case and plan d/w patient at length with showcase maker present in the room, all questions answered.
[2017-09-30] MEDS: Fluconazole 100 MG TAB PO SCH (17:05)
[2017-09-30] MEDS: Lidocaine 5% Patch TD SCH (17:05)
[2017-09-30] MEDS ORDERED: CAFFEINE PO PRN (19:57)
[2017-09-30] MEDS ORDERED: ACETAMINOPHEN PO PRN (19:57)
[2017-09-30] MEDS: ACETAMINOPHEN PO PRN (21:39)
[2017-09-30] MEDS: CAFFEINE PO PRN (21:39)
[2017-10-01] MEDS: Nystatin 500,000 UNITS/5 ML UDCUP PO SCH ×4 (00:50→16:59)
[2017-10-01] MEDS: ACETAMINOPHEN PO PRN ×2 (05:02→11:30)
[2017-10-01] MEDS: CAFFEINE PO PRN ×2 (05:02→11:30)
[2017-10-01] MEDS: Hydroxychloroquine Sulfate 200 MG TAB PO SCH (08:09)
[2017-10-01] MEDS: predniSONE 50 MG TAB PO SCH (08:11)
[2017-10-01] MEDS: Furosemide 20 MG TAB PO SCH (08:11)
[2017-10-01] MEDS: Mycophenolate 250 MG CAP PO SCH ×2 (08:12→22:00)
[2017-10-01] MEDS: Lidocaine Patch Removal 1 EACH TOP SCH (08:24)
--- NOTE | 2017-10-01 10:35 | PDOC.PN ---
- Subjective Encounter Start Date: 10/01/17 Encounter Start Time: 13:54 CC; back pain sub: pt c/o severe back pain - Objective Vital Signs & Weight: Vital Signs (12 hours) Temp Pulse Resp BP Pulse Ox 10/01/17 07:45 97.8 F 98 18 142/85 H 96 Weight Admit Weight 100 lb 6.4 oz Weight 95 lb 5 oz I&O: 09/30/17 10/01/17 10/02/17 06:59 06:59 06:59 Intake Total 1080 1440 Balance 1080 1440 Result Diagrams: 09/29/17 05:40 09/29/17 05:40 Phys Exam - Physical Examination Constitutional: NAD HEENT: moist MMs Neck: no nodes, no JVD Respiratory: no wheezing, no rales, no rhonchi Cardiovascular: RRR, no significant murmur, no rub Gastrointestinal: soft, non-tender, no distention Musculoskeletal: no edema able to follows commands, speech clear Psychiatric: normal affect Skin: no rash Dx/Plan - Plan Physical Examination Constitutional: NAD HEENT: PERRLA, moist MMs, sclera anicteric Neck: no nodes, no JVD, supple Respiratory: no wheezing, no rales, no rhonchi Cardiovascular: RRR, no significant murmur, no rub Gastrointestinal: soft, non-tender, no distention Musculoskeletal: no edema, pulses present +straight leg raise test B/L Neurological: non-focal, normal sensation Dx/Plan (1) Back pain Code(s): M54.9 - DORSALGIA, UNSPECIFIED Status: Acute Qualifiers: Back pain location: low back pain (2) Metabolic acidosis Code(s): E87.2 - ACIDOSIS Status: Acute (3) UTI (urinary tract infection) Status: Acute Comment: due to klebsiela (4) Chronic anemia Code(s): D64.9 - ANEMIA, UNSPECIFIED Status: Chronic (5) Hyperlipidemia Code(s): E78.5 - HYPERLIPIDEMIA, UNSPECIFIED Status: Chronic Qualifiers: Hyperlipidemia type: unspecified Qualified Code(s): E78.5 - Hyperlipidemia , unspecified (6) Hypertension Code(s): I10 - ESSENTIAL (PRIMARY) HYPERTENSION Status: Chronic Qualifiers: Hypertension type: essential hypertension Qualified Code(s): I10 - Essential (primary) hypertension (7) Physical deconditioning Code(s): R53.81 - OTHER MALAISE Status: Chronic - Plan * D/W neurosurgery, recommending kyphoplasty * no surgical intervention for retropulsion according to neurosurgery * monitor bp closley * Will wait for pain management input * Monitor respiratory status closely case d/w pt & RN & Neurosurgery
[2017-10-01 14:35] VITALS: BMI 19.2
[2017-10-01] MEDS: Lidocaine 5% Patch TD SCH (16:58)
[2017-10-01] MEDS: Fluconazole 100 MG TAB PO SCH (16:59)
[2017-10-01] MEDS: Gabapentin 300 MG CAP PO SCH (22:00)
[2017-10-02] MEDS: Nystatin 500,000 UNITS/5 ML UDCUP PO SCH ×5 (00:29→23:11)
[2017-10-02] MEDS: Furosemide 20 MG TAB PO SCH (10:12)
[2017-10-02] MEDS: predniSONE 50 MG TAB PO SCH (10:12)
[2017-10-02] MEDS: Hydroxychloroquine Sulfate 200 MG TAB PO SCH (10:12)
[2017-10-02] MEDS: Gabapentin 300 MG CAP PO SCH ×2 (10:13→20:48)
[2017-10-02] MEDS: Lidocaine Patch Removal 1 EACH TOP SCH (10:19)
[2017-10-02] MEDS: Mycophenolate 250 MG CAP PO SCH ×2 (11:07→20:48)
--- NOTE | 2017-10-02 11:48 | PRG ---
DATE OF SERVICE: 10/02/2017 SUBJECTIVE: The patient seen and examined at bedside. She is feeling slightly better this morning. Her appetite is fair and she had bowel movement daily. The pain is slightly better. OBJECTIVE: VITAL SIGNS: Blood pressure is 130/74, pulse is 96, respiratory rate 16, and O2 saturation is 94% on room air, temperature is 98.3. HEENT: Head is atraumatic, normocephalic. Eyes are PERRLA. Sclerae nonicteric. Oral mucosa is ruben st. NECK: Supple. LUNGS: Breath sounds slightly diminished at both bases. HEART: S1, S2 normal, no S3, no S4. ABDOMEN: Soft, nontender, bowel sounds are present, no organomegaly. EXTREMITIES: No clubbing, cyanosis or edema. The patient has a really hard time to even sit up with so much back pain. NEUROLOGIC: She is alert and oriented x3. There is not any motor deficits, although it is difficult to examine her muscle strength and neuro because of the amount of pain she has in the back. LABORATORY DATA: None today. IMPRESSION: 1. T12 DCF with radiculitis. 2. L4-L5 facet arthrosis with some central canal foraminal stenosis. 3. Left SI pain most likely secondary to inflammation. 4. Urinary tract infection. 5. Metabolic acidosis. 6. Chronic anemia. 7. Hyperlipidemia. 8. Hypertension. 9. Physical deconditioning, chronic. PLAN: The Neurosurgery did the consult and she is not a candidate for any surgical intervention. Th ey recommend to get left SI joint injected by a grinder tender on an outpatient basis, for now they s tarted her on gabapentin. She seems to be doing slightly better. We will continue gabapentin at the same dose and most likely she should be able to go back to the rehab tomorrow. Also, the patient's anemia was addressed with Procrit injections on the and she gets shots of 20,000 units of Procri t every 2 weeks for hemoglobin I believe less than 10. So at this point, we will continue pain manag ement. We will continue respiratory status monitoring. We will continue physical therapy and I had discussion with the daughter and I talked with the case management and we agree to discharge her dorota rrow if she is better, back to her rehabilitation.
[2017-10-02] MEDS: Epoetin (ESRD) 20,000 UNITS/ML SC SCH (13:02)
[2017-10-02] MEDS: Lidocaine 5% Patch TD SCH (15:03)
[2017-10-02] MEDS: CAFFEINE PO PRN (15:04)
[2017-10-02] MEDS: ACETAMINOPHEN PO PRN (15:04)
[2017-10-02] MEDS: Fluconazole 100 MG TAB PO SCH (17:02)
--- NOTE | 2017-10-02 17:37 | CON ---
DATE OF CONSULTATION: 10/01/2017 This is a hospital consultation consulted by Dr. Guy San, [facility] for back pain, VCF possible Kyphoplasty. HISTORY OF PRESENT ILLNESS: Ms. Burnett is a 72-year-old female who was admitted from the emergency room with anemia, pancytopenia, recent diagnosis of CMV esophagitis and colitis as well as sepsis. Past medical history includes systemic lupus erythematous on chronic immunosuppression medications with steroids, CMV colitis, lupus nephritis, chronic anemia of kidney disease managed on Procrit with Hematology and recurrent UTIs. She has undergone medical management and improved to a degree where she has been transferred to the floor and has been working with physical therapy recently with strengthening, transfers and stability. Her prior level of function was fairly independent at home, with use of assistive ambulation device as needed, yet she reports she was able to be fairly independent with most activities of daily functions on her own. Her recent exacerbation of back pain has limited her therapy progress while she is here in the hospital. She reports while working with physical therapy yesterday, she developed mid back pain around the area where a gait belt was placed to assist with transfers. She reports mid thoracic back pain, greater on the right side versus the left. The pain is rated at 7/10 most of the time, and decreases slightly with Tylenol, Excedrin tablet q.6 hours for her pain. She reports the pain is sharp, stabbing and aching at times. MRI of thoracic spine and lumbar spine were obtained secondary to her pain. MRI of the thoracic spine indicates old T12 vertebral compression fracture with retropulsion reported into the spinal canal. Lumbar MRI indicates L4-L5 with facet arthrosis with reported fluid within the facet joints, greater on the left versus right with small arachnoid cyst with mild narrowing of bilateral dorsal lateral recesses, no central or foraminal stenosis reported. The patient's prior level of function was ambulation with assistive device and she was able to transfer independently at home, she reports. This was declined recently due to acute illness resulting in debility and most recently the onset of mid thoracic low back pain while working with physical therapy. She does plan to return to skilled facility to resume therapy once stable and her pain is being controlled. She is taking Tylenol, Excedrin every 6 hours in addition to an added topical Lidoderm patch for her pain with minimal relief. She does report nausea associated with Tylenol with codeine as well as with tramadol and has aborted these medications for pain management in the past. We have been consulted to determine if the patient is a candidate for kyphoplasty to improve her pain thus improving her ability to tolerate physical therapy better. PAST MEDICAL HISTORY: 1. History of SLE on chronic immunosuppression. 2. Cytomegalovirus colitis, esophagitis. 3. History of lupus nephritis. 4. History of chronic anemia of kidney disease. 5. Chronic kidney disease stage 3. 6. Recurrent urinary tract infections. 7. Urinary retention. 8. History of ITP. 9. History of adrenal insufficiency. 10. Arthritis. PAST SURGICAL HISTORY: 1. Splenectomy. 2. Hysterectomy. 3. Left renal mass biopsy. 4. Left renal artery embolization in 2009. 5. Cystoscopy. 6. Diagnostic EGD and colonoscopy related to Cytomegalovirus or CMV colitis, esophagitis. SOCIAL HISTORY: The patient denies any alcohol use, denies smoking. She currently has been working with skilled rehab at [facility]. She was living at home with assistive device for ambulation and assist from family at her prior level of function. ALLERGIES: Include IRON, SULFA, reported nausea with TYLENOL, CODEINE products and TRAMADOL. CURRENT MEDICATIONS: Include acetaminophen, calcium carbonate, clonidine, Procrit, diclofenac, Lasix, guaifenesin, hydralazine, Plaquenil, lidocaine patch , Claritin, CellCept, Nitrostat as needed, Protonix, Tylenol tension headaches 1 p.o. q.6 hours p.r.n. for pain, prednisone. REVIEW OF SYSTEMS: The following completed review of systems was negative, unless otherwise mentioned in the HPI are covered in the history of present illness. IMAGING REPORTS: Her thoracic MRI indicated an old burst fracture of T12 vertebral body with a large posterior fragment resulting in some ventral canal stenosis and some minimal anterior cord indentation. Lumbar MRI reveals a significant facet arthrosis changes at L4-L5 with mild narrowing of the dorsal lateral recesses. No significant central canal stenosis or foraminal stenosis reported. PHYSICAL EXAMINATION: VITAL SIGNS: Upon presentation, blood pressure is 112/68, temperature is 98.1, heart rate is 96, respirations are 20. GENERAL: Patient is alert and oriented x3, easily in responsive to visual, verbal and tactile stimulation, cooperative, appears chronically ill. CARDIOVASCULAR: Peripheral vascular system normal pulses with no peripheral vascular swelling, no tenderness or edema. SKIN: Warm and dry. RESPIRATORY: Respiratory effort, no chest wall pain to palpation. SKIN: Normal turgor, warm and dry. No masses, rashes or edema. CERVICAL SPINE AND NECK ASSESSMENT: Normal to inspection, normal to palpation without muscle spasms, tenderness or step-offs. Range of motion of neck is normal in all directions. Reflexes: DTRs in the arms are 2+ throughout and equal bilaterally. Sensations: Sensation is normal to pinprick in the hands bilaterally. Motor strength: No abnormal movements seen in the upper extremities, patient has bilateral muscle atrophy with generalized weakness against strength resistance in the upper extremities bilateral. Vertebral spine tenderness is absent in the cervical spine. Paraspinal muscle spasms absent bilaterally. Trapezius tenderness absent bilaterally. THORACIC SPINE AND UPPER BACK EXAM: Moderate to severe kyphosis is seen upon inspection, the patient has T12 tenderness with palpations. No step-offs palpated. Paraspinal muscle spasms present on the right in the T10-T12 region. Range of motion of the spine is limited secondary to pain. Rhomboid muscles nontender. LUMBAR SPINE AND LOW BACK EXAM: Normal curvature spine palpation. No muscle spasms, no CVA tenderness, there is some left mild SI joint tenderness with palpation, no vertebral spine tenderness. Straight leg raise negative bilaterally. Motor system: Bilateral lower extremities with generalized weakness 4/5, muscle atrophy to bilateral lower extremities. Sensory exam: Normal to bilateral lower extremities. Reflexes, +2/4 bilateral patellas. Gait: Not assessed. Patient in bed. NEUROLOGICAL EXAM: The patient is alert and oriented x3. Sensory normal. Negative for clonus. ASSESSMENT AND PLAN: 1. Thoracic back pain. The patient has history of chronic appearing T12 vertebral compression fracture with large retropulsed fragment superiorly resulting in some mild indentation of spinal cord at this level. Patient is having radicular pain on exam, likely stemming from this chronic T12 compression fracture. Kyphoplasty is not recommended at this time due to retropulsion of vertebral compression fracture and chronic fracture. Plan to continue with topical Lidoderm for pain, Tylenol and will add gabapentin 300 mg p.o. b.i.d. for pain control. The patient reports intolerance to narcotic medications due to adverse reactions with nausea. Consider low dose hydrocodone if neuropathic medications are not effective with pain relief. May consider thoracic JORGE on outpatient basis once clinically stable; however, the patient remains high risk due to chronic CellCept therapy and other autoimmune comorbidities. 2. Left sacroiliitis. This is chronic in nature. Continue with current medications. The patient has been getting SI injections with Rheumatology in the past. She can follow up with us as needed in the future once discharged from the hospital. This is not a primary pain today. 3. Lumbar facet arthrosis. This has been reported on MR likely a source for chronic back pain; however, this is not her primary pain reported today. KADEN
[2017-10-03] MEDS: Nystatin 500,000 UNITS/5 ML UDCUP PO SCH ×4 (05:32→23:07)
[2017-10-03 06:31] LABS: Hemoglobin 9.4 g/dL (12.0-16.0)
[2017-10-03 06:47] LABS: Anion Gap 14 mmol/L (10-20); BUN (Urea Nitrogen) 34 mg/dL (9.8-20.1); Calc. Creatinine Clearance 25 mL/min (70-130); Calcium 7.9 mg/dL (7.8-10.44); Carbon Dioxide 22 mmol/L (23-31); Chloride 107 mmol/L (98-107); Estimated GFR-MDRD 36; Glucose 101 mg/dL (80-115); Sodium 140 mmol/L (136-145)
[2017-10-03 07:02] LABS: Potassium 2.9 mmol/L (3.5-5.1)
[2017-10-03] MEDS: Furosemide 20 MG TAB PO SCH (09:45)
[2017-10-03] MEDS: Hydroxychloroquine Sulfate 200 MG TAB PO SCH (10:24)
[2017-10-03] MEDS: Mycophenolate 250 MG CAP PO SCH ×2 (10:24→20:05)
[2017-10-03] MEDS: Gabapentin 300 MG CAP PO SCH ×2 (10:24→20:04)
[2017-10-03] MEDS: predniSONE 50 MG TAB PO SCH (10:24)
[2017-10-03] MEDS: Lidocaine Patch Removal 1 EACH TOP SCH (10:32)
[2017-10-03] MEDS: Potassium Chloride 20 MEQ TAB PO SCH ×3 (12:31→20:03)
[2017-10-03] MEDS: ACETAMINOPHEN PO PRN (15:21)
[2017-10-03] MEDS: CAFFEINE PO PRN (15:21)
[2017-10-03] MEDS: Lidocaine 5% Patch TD SCH (15:21)
--- NOTE | 2017-10-03 15:40 | CON ---
DATE OF CONSULTATION: 10/01/2017 at 0900. HISTORY OF PRESENT ILLNESS: Ms. Burnett is a 72-year-old woman who has been admitted to [facility] multiple times in the last 3-4 months for various reasons; the chief one is considerable wea kness and generalized malaise from multifactorial process. Neurosurgery was consulted as the patient has had back pain for many months now, it seemed to have worsened more recently with her hospitaliza tion. MRI was performed that revealed a compression fracture T12 with superior endplate bony retropu lsion that is causing mild to moderate central canal stenosis, although there is indentation of the t hecal sac and no disruption of the spinal cord itself nor the neural foramen at that level or any oth er. Neurosurgery was consulted for this purpose. I am seeing Ms. Burnett at bedside this morning a nd her pain is limited only to her lower thoracic spine or upper lumbar spine, but no radiation. She denies tingling, numbness in her abdomen, trunk or lower extremities in any location. She does admi t to substantial lower extremity weakness bilaterally that has been chronic for many years. It is kn own she has both systemic lupus as well as renal disease and other immunological processes that she i s being treated for by Rheumatology that has been for several years now. She has had chronic muscle wasting over that time frame and does have considerable muscular atrophy particularly in the proximal lower extremities throughout the thigh musculature anteriorly and posteriorly. In addition to all o f this, part of her problem over the last month has been CMV colitis, which has resulted in profound weight loss, which I am sure has contributed to her weakness as well. I have also been able to obtai n a CT scan of the chest, abdomen, and pelvis that was performed in 05/2017, roughly 5 months ago lowell t reveals an essentially stable compression fracture at T12 with the same amount of retropulsion. I have also found a lateral L and T spine x-ray from 09/2016 that reveals the same kyphotic angulation as the current MRI on the same level of compression at T12. I am unable to assess the retropulsion i n that particular study and there is another CT of the chest, abdomen, and pelvis from 2016 [place] that reveals a compression fracture at T12, but just to a lesser extent, so this is a progres sed process over the interval from [id number]; however, it has not changed any substantial way that I can perceive from September of last year, roughly 12 months ago. On examination, she does have profound lower extremity weakness particularly with leg extension which is understood given the degree of atro phy noted on her exam in the thigh region and hamstrings as well as quadriceps. She has very limited hip flexion, but she is antigravity in all movements. She has 4/5 strength in plantar and dorsiflex ion of the ankle. Again, has no sensory disturbance that I can discern. She has intact reflexes at the patella bilaterally and again has no abnormal sensation to the trunk or abdomen at any location. ASSESSMENT: Stable thoracic compression fracture at T12 and back pain. From the neurosurgical stand point, this fracture is a stable fracture for at least the last year regardless of its chronicity or stability. There is not enough central canal stenosis, but I feel this would be in any way responsib le for leg weakness and certainly not the amount of atrophy that she has experienced, this is a much more chronic problem and could be related to spinal condition, but again emphasis must be put on the fact that the stenosis present at the T12 level and the central canal is not to any degree that you w ould expect any impact on leg weakness or atrophy regardless of its chronicity. We would certainly n ot recommend any type of neurosurgical intervention, but do feel like she could benefit from possibil ity of a kyphoplasty evaluation in our pain management colleagues with [facility] and do recommend pu rsuit of consult there. She could potentially also benefit from a brace and I do not think that she would tolerate this well, particularly considering her generalized weakness and body habitus. No fur ther intervention would be recommended.
[2017-10-03] MEDS: Fluconazole 100 MG TAB PO SCH (17:01)
[2017-10-04] MEDS: Nystatin 500,000 UNITS/5 ML UDCUP PO SCH ×4 (05:36→23:51)
[2017-10-04 06:21] LABS: Anion Gap 9 mmol/L (10-20); BUN (Urea Nitrogen) 33 mg/dL (9.8-20.1); Calc. Creatinine Clearance 24 mL/min (70-130); Calcium 7.8 mg/dL (7.8-10.44); Carbon Dioxide 22 mmol/L (23-31); Chloride 114 mmol/L (98-107); Estimated GFR-MDRD 35; Glucose 84 mg/dL (80-115); Magnesium 1.5 mg/dL (1.6-2.6); Potassium 6.3 mmol/L (3.5-5.1); Sodium 139 mmol/L (136-145)
[2017-10-04] MEDS: predniSONE 50 MG TAB PO SCH (07:49)
[2017-10-04] MEDS: Lidocaine Patch Removal 1 EACH TOP SCH (07:49)
[2017-10-04] MEDS: Hydroxychloroquine Sulfate 200 MG TAB PO SCH (07:50)
[2017-10-04] MEDS: Gabapentin 300 MG CAP PO SCH ×2 (07:52→21:08)
[2017-10-04] MEDS: Mycophenolate 250 MG CAP PO SCH ×2 (07:55→21:08)
[2017-10-04] MEDS: Furosemide 20 MG TAB PO SCH (07:55)
[2017-10-04] MEDS: ACETAMINOPHEN PO PRN ×2 (07:57→15:54)
[2017-10-04] MEDS: CAFFEINE PO PRN ×2 (07:57→15:54)
[2017-10-04 14:59] LABS: Potassium 4.9 mmol/L (3.5-5.1)
--- NOTE | 2017-10-04 15:44 | PDOC.PN ---
- Subjective Encounter Start Date: 10/04/17 Encounter Start Time: 13:00 Patint is seen today, waiitng to be discharged today, but her potassium was very high > 6, with kayxalate, it did come down to 4.9 and pt was feeling not well and Daughter is not comfortable sending her to rehab today. - Objective MAR Reviewed: Yes Vital Signs & Weight: Vital Signs (12 hours) Temp Pulse Resp BP Pulse Ox 10/04/17 08:17 98.0 F 104 H 18 157/89 H 94 L 10/04/17 08:00 98.0 F 104 H 18 Weight Admit Weight 100 lb 6.4 oz Weight 95 lb 4.991 oz I&O: 10/03/17 10/04/17 10/05/17 06:59 06:59 06:59 Intake Total 1080 870 240 Output Total 3 Balance 1080 867 240 Result Diagrams: 10/03/17 06:23 10/04/17 14:30 Radiology Reviewed by me: Yes Phys Exam - Physical Examination HEENT: PERRLA, moist MMs Neck: no nodes, no JVD Respiratory: no wheezing, no rales Gastrointestinal: soft, non-tender Musculoskeletal: no edema, pulses present Lymphatic: no nodes Psychiatric: normal affect, A&O x 3 Dx/Plan (1) Acute hyperkalemia Code(s): E87.5 - HYPERKALEMIA Status: Acute Comment: Paitnt is Feeeling some palpitations, So Kayxalate give 30gm, Will closley Monitor today. Telemetry looked fine. (2) Acute respiratory failure with hypoxia Code(s): J96.01 - ACUTE RESPIRATORY FAILURE WITH HYPOXIA Status: Resolved Comment: García now. (3) Acute urinary retention Code(s): R33.8 - OTHER RETENTION OF URINE Status: Acute Comment: with kerr + (4) Acute worsening of stage 3 chronic kidney disease Code(s): N18.3 - CHRONIC KIDNEY DISEASE, STAGE 3 (MODERATE) Status: Acute Comment: Improved. Diarrhea resolved. (5) UTI (urinary tract infection) Status: Acute Comment: due to klebsiela, completed course of Abx. (6) Hypertension Code(s): I10 - ESSENTIAL (PRIMARY) HYPERTENSION Status: Chronic Qualifiers: Hypertension type: essential hypertension Qualified Code(s): I10 - Essential (primary) hypertension Comment: Stbale and at goal. (7) Physical deconditioning Code(s): R53.81 - OTHER MALAISE Status: Chronic Comment: Pt will need Rehab for physical decondition, She is Accepted and Waiting for medical clearance. She can go tomorrow. (8) SLE (systemic lupus erythematosus) Code(s): M32.9 - SYSTEMIC LUPUS ERYTHEMATOSUS, UNSPECIFIED Status: Chronic Qualifiers: Systemic lupus erythematosus type: unspecified Comment: carlitae. No exacerbation - Plan cont current plan of care, plan discussed w/ family, PT/OT, social work faculty member, respiratory therapy, incentive spirometry, out of bed/ambulate, DVT proph w/ lovenox * . - Discharge Day Encounter end time: 13:35 Review of Systems - Review of Systems Constitutional: weakness, malaise Eyes: negative: Pain, Vision Change, Conjunctivae Inflammation, Eyelid Inflammation, Redness, Other ENT: negative: Ear Pain, Ear Discharge, Nose Pain, Nose Discharge, Nose Congestion, Mouth Pain, Mouth Swelling, Throat Pain, Throat Swelling, Other Respiratory: negative: Cough, Dry, Shortness of Breath, Hemoptysis, SOB with Excertion, Pleuritic Pain, Sputum, Wheezing Cardiovascular: negative: chest pain, palpitations, orthopnea, paroxysmal nocturnal dyspnea, edema, light headedness, other Gastrointestinal: negative: Nausea, Vomiting, Abdominal Pain, Diarrhea, Constipation, Melena, Hematochezia, Other Genitourinary: negative: Dysuria, Frequency, Incontinence, Hematuria, Retention , Other Musculoskeletal: negative: Neck Pain, Shoulder Pain, Arm Pain, Back Pain, Hand Pain, Leg Pain, Foot Pain, Other Skin: negative: Rash, Lesions, Surya, Bruising, Other - Medications/Allergies Allergies/Adverse Reactions: Allergies Allergy/AdvReac Type Severity Reaction Status Date / Time iron Allergy Severe Rash Verified 08/24/17 22:19 Sulfa (Sulfonamide Allergy Severe Rash Verified 08/24/17 22:19 Antibiotics) magnesium sulfate Allergy Verified 08/29/17 16:23 sulfate Allergy Uncoded 08/29/17 13:06 Medications: Current Medications Acetaminophen (Tylenol) 650 mg PO Q4H PRN PRN Reason: Headache/Fever or Pain Last Admin: 09/29/17 21:12 Dose: 650 mg Bisacodyl (Dulcolax) 10 mg PO DAILYPRN PRN PRN Reason: Constipation Calcium Carbonate (Tums) 1,000 mg PO Q4H PRN PRN Reason: Heartburn or Indigestion Clonidine (Catapres) 0.1 mg PO Q4H PRN PRN Reason: Systolic BP > 160 Epoetin Matt (Procrit) 20,000 units SC Q7D [facility] Last Admin: 10/02/17 13:02 Dose: 20,000 units Fluconazole (Diflucan) 100 mg PO 1800 [facility] Last Admin: 10/03/17 17:01 Dose: 100 mg Furosemide (Lasix) 20 mg PO DAILY [facility] Last Admin: 10/04/17 07:55 Dose: 20 mg Gabapentin (Neurontin) 300 mg PO BID [facility] Last Admin: 10/04/17 07:52 Dose: 300 mg Guaifenesin (Robitussin Sf) 200 mg PO Q4H PRN PRN Reason: Cough Hydralazine HCl (Apresoline) 10 mg SLOW IVP Q4H PRN PRN Reason: Systolic BP > 170 Hydroxychloroquine Sulfate (Plaquenil) 300 mg PO DAILY [facility] Last Admin: 10/04/17 07:50 Dose: 300 mg Lidocaine (Lidoderm 5% Patch) 1 patch TD 1600 [facility] Last Admin: 10/03/17 15:21 Dose: 1 patch Loratadine (Claritin) 10 mg PO DAILYPRN PRN PRN Reason: Sinus Symptoms Miscellaneous Medication (Lidocaine Patch Removal) 1 each TOP 0800 [facility] Last Admin: 10/04/17 07:49 Dose: 1 each Mycophenolate Mofetil (Cellcept) 1,000 mg PO BID [facility] Last Admin: 10/04/17 07:55 Dose: 1,000 mg Nitroglycerin (Nitrostat) 0.4 mg SL Q5MIN PRN PRN Reason: Chest Pain Nystatin (Mycostatin) 500,000 units PO Q6HR [facility] Last Admin: 10/04/17 11:54 Dose: 500,000 units Ondansetron HCl (Zofran) 4 mg IVP Q6H PRN PRN Reason: Nausea/Vomiting Pantoprazole Sodium (Protonix) 40 mg PO Q12HR [facility] Last Admin: 10/04/17 07:52 Dose: 40 mg Tylenol Tension Headache Patient's Home Medication 1 each PO Q6H PRN PRN Reason: 1ST LINE Tylenol Tension Headache Patient's Home Medication 2 each PO Q6H PRN PRN Reason: 2ND LINE Last Admin: 10/04/17 07:57 Dose: 2 each Phenazopyridine HCl (Azo Standard) 97.5 mg PO BIDPRN PRN PRN Reason: URINARY BURNING/ITCHING Last Admin: 09/22/17 21:16 Dose: 97.5 mg Prednisone (Prednisone) 25 mg PO QAM-[facility] Last Admin: 10/04/17 07:49 Dose: 25 mg Senna (Senokot) 2 tab PO HSPRN PRN PRN Reason: Constipation Sodium Chloride (Flush - Normal Saline) 10 ml IVF Q12HR [facility] Last Admin: 10/04/17 07:56 Dose: 10 ml Sodium Chloride (Flush - Normal Saline) 10 ml IVF PRN PRN PRN Reason: Saline Flush Valganciclovir (Valcyte) 450 mg PO Q2D@1830 [facility] Last Admin: 10/03/17 17:02 Dose: 450 mg
[2017-10-04] MEDS: Lidocaine 5% Patch TD SCH (15:52)
[2017-10-04] MEDS: Fluconazole 100 MG TAB PO SCH (17:32)
[2017-10-05] MEDS: Nystatin 500,000 UNITS/5 ML UDCUP PO SCH ×2 (05:35→11:21)
[2017-10-05] MEDS: Lidocaine Patch Removal 1 EACH TOP SCH (08:02)
[2017-10-05] MEDS: Mycophenolate 250 MG CAP PO SCH (08:02)
[2017-10-05] MEDS: Gabapentin 300 MG CAP PO SCH (08:03)
[2017-10-05] MEDS: Hydroxychloroquine Sulfate 200 MG TAB PO SCH (08:04)
[2017-10-05] MEDS: Furosemide 20 MG TAB PO SCH (08:05)
[2017-10-05] MEDS: predniSONE 50 MG TAB PO SCH (08:06)
[2017-10-05] MEDS: CAFFEINE PO PRN ×2 (09:37→16:09)
[2017-10-05] MEDS: ACETAMINOPHEN PO PRN ×2 (09:37→16:09)
[2017-10-05] MEDS: Lidocaine 5% Patch TD SCH (15:58)
[2017-10-05 17:03] VITALS: BP 118/62; TEMP 98.1
--- NOTE | 2017-10-05 17:22 | DIS ---
DATE OF ADMISSION: 09/17/2017 DATE OF DISCHARGE: 10/05/2017 DISCHARGE DIAGNOSES: 1. Acute dyspnea, multifactorial, resolved. 2. Pancytopenia, iatrogenic, resolved. 3. Hypotension, resolved. 4. Acute kidney injury on chronic kidney disease stage 3, improved. 5. Cytomegalovirus colitis, treated with Valcyte. 6. Severe protein-calorie malnutrition. 7. T12 compression fracture, conservative management. 8. Hyperkalemia, resolved. 9. Rheumatoid arthritis, on current immunosuppressive therapy. 10. Systemic lupus erythematosus. 11. Severe deconditioning. 12. Urinary tract infection with Escherichia coli and Enterococcus species. 13. Severe deconditioning. CONSULTATIONS: 1. Dr. Phillips with Infectious Disease Service. 2. Dr. Valdez and Dr. Rosenberg with Pulmonology Service. 3. Hematology Service. 4. Dr. Yates with Nephrology Service. PERTINENT LABORATORY AND X-RAY FINDINGS: Potassium ranged between 2.9-6.3, creatinine ranged between 1.33-2.35. Lactic acid level ranged between 1.0-2.2. BNP ranged between 73-688. Albumin level 2.5 , vitamin B12 level 869. CBC showed a white blood cell count ranging between 0.7-11.3, hemoglobin ra nged between 6.7-9.5. Blood cultures x2 from 09/17/2017 showed no growth for 5 days. Urine culture dated 09/17/2017 showed greater than 100,000 colonies of E. coli and Enterococcus species. Stool Hem occult 09/17/2017 negative. Stool Hemoccult dated 10/02/2017, positive x1. Portable chest x-ray chip ed 09/17/2017 showed right basilar opacity. Layering left-sided effusion. A PICC line in position. Portable chest x-ray dated 09/19/2017 showed slight improvement in the right lower lobe opacity. [place]ani mbar radiographs dated 09/20/2017 showed stable compression fracture of T12 vertebral body. Thoracic spine radiographs dated 09/25/2017 showed vertebral body collapse of T12. Severe bone demineralizat ion noted. MRI of the thoracic and lumbar spine dated 09/26/2017 showed T12 compression fracture, ol d with retropulsion into the spinal canal. Lumbar spine MRI dated 09/26/2017 showed facet arthrosis at L4 and L5 with mild narrowing of the dorsal lateral recesses. Old burst fracture of T12 noted. HOSPITAL COURSE: The patient was initially admitted after presenting with shortness of breath and ge neralized weakness with recent hospitalizations x2 previous in 2018. 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 The patient presented with readmission due to severe weakness and shortness of breath. Metabolic workup showed evidence of pancytopenia likely iatrogenic and medication relate d. The patient's culprit was likely ganciclovir and this was monitored during the hospital course. The patient was evaluated by the hematology service with recommendations for attempting the lowest to lerable dose to ganciclovir and monitoring CBC. The patient also received Procrit and 1 unit of pack ed red blood cells. Serial CBC assessment showed overall improving values globally. The patient was monitored for remainder the hospital course. The patient also treated for worsening shortness of br eath and dyspnea given oxygen supplementation as well. The patient's overall respiratory status did improve with supportive metabolic processes as well as oxygen supplementation with nonrebreather. Th e patient was transitioned to room air over the course of her hospital stay and likely multifactorial process including severe anemia, deconditioning, and mild effusion. The patient was initially manag ed with IV antibiotic therapy after concern for possible infectious process; however, this was ruled out with negative blood cultures x2. The patient was noted with a urinary tract infection with E. co li and Enterococcus species and treated appropriately with antibiotic therapy directed at these organ isms based on culture and sensitivities. Due to patient's overall severe deconditioning and malnutri tion, the patient was evaluated for dietary supplementation as well as supplementation with Nepro b.i .d. The patient likely would benefit from ongoing Megace therapy after discharge. The patient was a lso evaluated for increasing back pain with multiple imaging studies confirming evidence of a T12 bur st fracture likely old in nature. The patient received evaluation by the neurosurgical service with recommendations for conservative management without acute surgical intervention. The patient may bruna efit from outpatient kyphoplasty in the near future. The patient continued to clinically stabilize; however, remained severely deconditioned with recommendations for ongoing physical and occupational t herapy. The patient was deemed an appropriate candidate for ongoing acute inpatient rehabilitation a nd likely will benefit from ongoing supervised physical therapy. The patient as of 10/05/2017 had am bulated up to 12 feet with contact guard assistance. The patient's overall discharge was delayed due to hyperkalemia, which improved with supportive measures and Kayexalate. Likely iatrogenic and etio logy with potassium supplementation after initial potassium value was noted at 2.9 on 10/03/2017. Po tassium level 4.9 at the time of discharge. Overall, the patient clinically stabilized and ready for transfer to [facility] for further supervised care and monitoring. I have personally evaluated and examined the patient on the day of discharge on 10/05/2017, at which point the patient may transfer to [facility] facility. DISCHARGE MEDICATIONS: 1. Tylenol 650 mg p.o. q.4-6 hours p.r.n. 2. Amlodipine 10 mg 1 tab p.o. daily. 3. Dulcolax 10 mg per rectum daily p.r.n. 4. Calcitriol 0.25 mcg p.o. daily. 5. Calcium carbonate 1000 mg p.o. q.i.d. p.r.n. 6. Vitamin D3 5000 units p.o. daily. 7. Cholestyramine 4 grams p.o. b.i.d. 8. Procrit 20,000 units subcutaneously q.7 days. 9. Diflucan 100 mg p.o. daily. 10. Lasix 20 mg p.o. daily. 11. Gabapentin 300 mg p.o. b.i.d. 12. Hydroxychloroquine 200 mg 1-1/2 tabs p.o. daily. 13. Lidocaine patch 5% one patch transdermally daily. 14. Magnesium oxide 400 mg p.o. b.i.d. 15. Megace 800 mg p.o. daily. 16. CellCept 500 mg 2 tabs p.o. b.i.d. 17. Mycostatin 2 mL swish and swallow daily. 18. Protonix 40 mg p.o. b.i.d. 19. AZO Standard 97.5 mg p.o. b.i.d. 20. Prednisone 25 mg p.o. q.a.m. 21. Valcyte 450 mg q.48 hours. FOLLOWUP: The patient to follow up at [facility] on 10/05/2017. The daniel nt will follow up with her primary care provider, Dr. Sergio Sen after discharge from [facility]. CONDITION ON DISCHARGE: Fair. ACTIVITY: Rolling walker with contact guard assistance. High fall risk precautions. DIET: Regular. CODE STATUS: FULL. DISPOSITION: Discharged to [facility] on 10/05/2017. Total time preparing inordinate discharge 40 minutes.
== END 2017-10-05 17:15 | DRG 808 ==
LOC: ERS 19:32 → IMCU/EMU 22:05 → T4-A 09-19 18:58
PROVIDERS: ADMIT Internal Medicine; ATTEND Internal Medicine
PROC: 30233N1 Transfusion of Nonautologous Red Blood Cells into Peripheral Vein, Percutaneous Approach (ICD-10-PCS; principal; 2017-09-17)
DX: D61.811 Other drug-induced pancytopenia (principal); J96.01 Acute respiratory failure with hypoxia; E43 Unspecified severe protein-calorie malnutrition; N17.9 Acute kidney failure, unspecified; L89.153 Pressure ulcer of sacral region, stage 3; B25.8 Other cytomegaloviral diseases; M32.14 Glomerular disease in systemic lupus erythematosus; B37.0 Candidal stomatitis; E27.40 Unspecified adrenocortical insufficiency; N39.0 Urinary tract infection, site not specified; J98.11 Atelectasis; A08.39 Other viral enteritis; E87.2 Acidosis; Z68.1 Body mass index [BMI] 19.9 or less, adult; D64.89 Other specified anemias; E87.5 Hyperkalemia; D63.1 Anemia in chronic kidney disease; N18.3 Chronic kidney disease, stage 3 (moderate); M06.9 Rheumatoid arthritis, unspecified; M46.1 Sacroiliitis, not elsewhere classified; M47.9 Spondylosis, unspecified; I12.9 Hypertensive chronic kidney disease with stage 1 through stage 4 chronic kidney disease, or unspecified chronic kidney disease; B96.20 Unspecified Escherichia coli [E. coli] as the cause of diseases classified elsewhere; R33.9 Retention of urine, unspecified; K20.8 Other esophagitis; E87.70 Fluid overload, unspecified; E87.6 Hypokalemia; B95.2 Enterococcus as the cause of diseases classified elsewhere; Z88.2 Allergy status to sulfonamides; Z16.24 Resistance to multiple antibiotics; Z88.8 Allergy status to other drugs, medicaments and biological substances; Z79.52 Long term (current) use of systemic steroids; Z79.899 Other long term (current) drug therapy; Z90.81 Acquired absence of spleen; T37.5X5A Adverse effect of antiviral drugs, initial encounter
CPT/HCPCS: 36415; 36416; 36430; 36569; 51702; 71045; 72072; 72100; 72146; 72148; 80048; 80069; 81001; 81003; 81015; 82274; 82306; 82553; 82607; 83605; 83735; 83880; 84100; 84484; 85014; 85018; 85025; 85610; 85730; 86850; 86900; 86901; 87040; 87077; 87086; 87186; 87497; 93005; A4216; C1751; C9113; G8978-GP-CL; G8978-GP-CN; G8979-GP-CJ; G8979-GP-CK; G8987-GO-CM; G8988-GO-CJ; G8996-GN-CJ; G8997-GN-CI; J0692; J1644; J1940; J2543; J2997; J3370; J7050; J7517; J8499; P9016; Q4081

== ENCOUNTER 2017-10-12 11:33 | Inpatient (IN) | payer MEDICARE, OTHER ==
--- NOTE | 2017-10-12 13:06 | CT ---
CT ABDOMEN NONCONTRAST CT PELVIS NONCONTRAST: (urolithiasis protocol) DATE: 10/12/17. TIME: 12:25 p.m. HISTORY: A 72-year-old female with lactic acidosis and generalized abdominal pain. Abnormal KUB. Dr. Ferraro discussed the findings involving the urinary bladder by telephone with Dr. Rekha zelaya 12:34 p.m. on 10/12/17. COMPARISON: CT of 08/25/17. TECHNIQUE: IV injection of iodinated contrast media: none Oral contrast media: none FINDINGS: Other than for urolithiasis, the lack of IV and oral contrast limits the evaluation. Previously, there was a moderate amount of pneumatosis in the space of Retzius anterior to the urinar y bladder, and a small amount of pneumatosis involving the anterior wall of the urinary bladder. Now, there is a much greater volume of gas circumferentially throughout the entire urinary bladder wa ll, in irregular fashion. The urinary bladder is now very distended, reaching the level of the umbil icus. There is a large volume of intraluminal gas in the nondependent portion of the urinary bladder , and a fluid level in the dependent portion (approximately 50% volume air and 50% volume fluid). Th ere is a new finding of moderate right hydronephrosis and mild to moderate right hydroureter. Again demonstrated is the atrophic, small left kidney containing extensive dystrophic calcifications. No l eft-sided hydronephrosis. There is no definite evidence of pneumatosis in the rectum. There are mul tiple diverticula in the sigmoid colon without convincing evidence of acute colonic diverticulitis. The rectosigmoid colon is not dilated. It is more difficult to exclude the possibility of mural thic kening involving a long segment of sigmoid colon and portion of the descending colon. There are mult ifocal pulmonary densities at the base of the left lower lobe, which were present previously on , but these appear slightly more confluent peripherally. Abutting the posterolateral pleural surfac e. No small bowel dilation. No ascites. Within limitations of a noncontrast scan, no obvious patho logy identified involving adrenals, liver, pancreas, or spleen. Because of the high intraluminal pressure, the intramural gas of the urinary bladder has entered the lumen of the bilateral distal ureters. Furthermore, some of the air has dissected around the urethra . There is a tiny amount of gas lateral to the right obturator internis muscle. Again noted is the rim-calcified soft tissue density lesion from the atrophic left renal upper pole e xtending to the left hemidiaphragmatic undersurface. IMPRESSION: 1. Severe pneumatosis of the urinary bladder, and large volume of intraluminal air, in a very disten ded urinary bladder: evidence for emphysematous cystitis. 2. Moderate right-sided obstructive uropathy (probably due to the severe distention of the urinary b ladder), with moderate right hydronephrosis. 3. Atrophic, shrunken left kidney with what may represent a rim-calcified old hematoma extending fro m the left renal apex to the left hemidiaphragmatic surface. 4. Left lower lobe pulmonary infiltrate appears somewhat worse than on 08/25/17. CODE CR JN R POS: [place]
[2017-10-12] MEDS ORDERED: Ondansetron HCl/PF 4 MG/2 ML Vial ONE (13:45)
[2017-10-12] MEDS ORDERED: Piperacillin/Tazobactam 3.375 GM in Sodium Chloride 0.9% 100 ML IVPB SCH (13:45)
[2017-10-12] MEDS ORDERED: Piperacillin/Tazobactam 3.375 GM VIAL ONE (13:45)
[2017-10-12 13:48] LABS: Hemoglobin 8.9 g/dL (12.0-16.0); Mean Corpuscular HGB CONC 29.5 g/dL (32.0-36.0); Mean Corpuscular Hemoglobin 29.5 pg (27.0-31.0); Mean Corpuscular Volume 99.9 fl (81.0-99.0); Mean Platelet Volume 10.3 fL (7.4-10.4); Platelet Count 125 thou/uL (130-400); RBC Distribution Width 23.3 % (11.5-14.5); Red Blood Cell (RBC) Count 3.02 mill/uL (4.20-5.40); White Blood Cell (WBC) Count 8.3 thou/uL (4.8-10.8)
[2017-10-12 13:56] LABS: ALT (SGPT) 11 U/L (8-55); AST (SGOT) 12 U/L (5-34); Alkaline Phosphatase 130 U/L (40-150); Anion Gap 18 mmol/L (10-20); BUN (Urea Nitrogen) 46 mg/dL (9.8-20.1); Bilirubin, Total 0.4 mg/dL (0.2-1.2); Calc. Creatinine Clearance 0 mL/min (70-130); Calcium 8.2 mg/dL (7.8-10.44); Carbon Dioxide 11 mmol/L (23-31); Chloride 109 mmol/L (98-107); Estimated GFR-MDRD 21; Globulin 2.1 g/dL (2.4-3.5); Glucose 76 mg/dL (80-115); Lipase 99 U/L (8-78); Potassium 4.5 mmol/L (3.5-5.1); Protein, Total 5.1 g/dL (6.0-8.3); Sodium 133 mmol/L (136-145)
[2017-10-12 14:01] LABS: Bilirubin Large (Negative); Blood, Urine Large (Negative); Clarity TURBID (Clear); Glucose, Urine (Dipstick) Negative (Negative); Leukocyte Large (Negative); Nitrite Positive (Negative); Protein, Urine (Dipstick) 300 mg/dL (Neg-Trace); Specific Gravity, Urine 1.017 (1.002-1.036); Urobilinogen 0.2 mg/dL (0.2-1.0)
[2017-10-12 14:02] LABS: #Lymphocytes 0.2 thou/uL (1.20-3.40); #Neutrophils 7.1 thou/uL (1.40-6.50); %Basophils 0.3 % (0.0-1.0); %Eosinophils 0.1 % (0.0-10.0); %Monocytes 11.9 % (0.0-10.0); %Neutrophils 85.7 % (42.0-75.0); Acanthocytes SLIGHT = 1-5 cells (100X) (None Seen); Anisocytosis SLIGHT = 6-15 cells (100X) (0-5/hpf); Hypochromia SLIGHT = 6-15 cells (100X) (0-5/hpf); MDiff Complete? YES; PLT Morphology Comment Appears Decreased; Schistocytes SLIGHT = 2-5 cells (100X) (0-1/hpf)
[2017-10-12 14:04] LABS: Hyaline Casts/LPF 7-10 HYALINE CAST LPF (0-3 Hyaline); RBC/HPF GREATER THAN 50-TNTC HPF (0-3); Squamous Epithelial None Seen HPF (0-3)
[2017-10-12 14:05] LABS: Pathc Cast-AUWi Flag 2.76 (0-2.49)
[2017-10-12 14:11] LABS: Bacteria/HPF 4+ HPF (None Seen)
[2017-10-12] MEDS ORDERED: Calcium Carbonate 500 MG ChewTAB PO PRN (15:04)
[2017-10-12] MEDS ORDERED: Zolpidem Tartrate 5 MG TAB PO PRN (15:07)
[2017-10-12] MEDS ORDERED: Morphine 4 MG/ML VIAL SLOW IVP PRN (15:45)
--- NOTE | 2017-10-12 15:45 | HP ---
DATE OF ADMISSION: 10/12/2017 ADMITTING DIAGNOSIS: Abdominal pain. HISTORY OF PRESENT ILLNESS: This is a 72-year-old female who was recently admitted to the hospital a nd discharged after having CMV colitis. The patient states that she was discharged to rehabilitation . Her Villanueva catheter was removed and after that she was having progressively lower quadrant abdomina l pain, epigastric, suprapubic in area. Patient states that she had workup done at the rehab where garcia gonsalves did a CT scan and was concerning for colitis. The patient was brought to the ER and states that she has some abdominal pain. No fevers noted. CT scan reveals emphysematous cystitis with severe pn eumatosis in the early bladder, as well as right-sided obstructive uropathy with mild right hydroneph rosis. The patient states that she has never had these kinds of pains before. Denies any nausea, vo miting, diarrhea, constipation, chest pains, chills or shortness of breath. Does admit to some mild low grade fevers; however, currently does not have a temperature. The patient states that she has no other associated symptoms or complaints. No alleviating or aggravating factors. Daughter at sofia e. All questions answered. ALLERGIES: To SULFA. PAST MEDICAL AND SURGICAL HISTORY: History of systemic lupus erythematosus, CMV colitis, history of lupus nephritis, history of CKD stage 3, history of recurrent UTIs, history of urinary retention, his tory of adrenal insufficiency, history of a splenectomy, hysterectomy with left lung mass, history of renal artery embolization. MEDICATIONS: See MAR. FAMILY HISTORY: Positive for breast cancer, hypertension, and diabetes mellitus. SOCIAL HISTORY: The patient denies any drinking or smoking. REVIEW OF SYSTEMS: Twelve point review of systems performed. Pertinent positive in the HPI, otherwi se negative. PHYSICAL EXAMINATION: VITAL SIGNS: Blood pressure 156/68, heart rate 88, temperature 99.8, respirations 20. GENERAL: The patient lying in bed in no acute distress. HEENT: Pupils equal, round, react to light and accommodation. Normocephalic, atraumatic. Extraocul ar muscles intact. Oral cavity moist and pink. LUNGS: Clear to auscultation bilaterally, aerating well. No respiratory distress. CARDIOVASCULAR: S1, S2 regular. No murmurs, rubs or gallops. ABDOMEN: Positive bowel sounds, soft, nontender, pain to palpation in epigastric and suprapubic angy on. EXTREMITIES: 2+ peripheral pulses. No edema noted. NEUROLOGIC: Alert and oriented x3. No loss of sensory or motor function. LABORATORY DATA: CBC: WBC 8.3, hemoglobin 9, hematocrit of 30, platelet count of 125. BMP reveals sodium of 135, potassium of 4.5, chloride 109, bicarbonate of 11, creatinine 2.33, BUN 46, albumin 3. Urinalysis indicative of 300 protein, 15 of ketones, positive for nitrites as well as bacteria. ASSESSMENT: 1. Lower abdominal pain. 2. Emphysematous bladder cystitis, mild hydronephrosis as well noted. 3. Urinary tract infection. 4. History of lupus. 5. History of chronic kidney disease. 6. History of hyperlipidemia. 7. History of hypertension. 8. Hyponatremia. 9. Anemia, likely secondary to renal disease. 10. Severe metabolic acidosis likely secondary to kidney disease. PLAN: Admit to telemetry. We will start the patient on antibiotics. Urine culture is pending. Miguelina rrhea has been resolved. Risk of possibility of CMV is very minimal at this point in time; however, we will obtain thyroid levels just to confirm. Metabolic acidosis significant, we will start the pat ient on bicitra and IV fluids. We will consult Dr. Yates, her abstract checker for assistance with manage ment of her kidney problems as well as possibility of kidney disease. We will continue with CellCept 1000 twice a day as well as Plaquenil for lupus, antibiotics, urine culture. We will also consult U rology for obstructive nephropathy. Continue home medications as appropriate. GI, deep venous throm bosis prophylaxis with Protonix and sequential compression devices. Pain medications, p.r.n. medicat ions for fever, nausea, and insomnia. The patient wishes to remain as a full code at this point in [facility]. Case and plan discussed with the patient and daughter at length. They understand and agree wit h this plan.
[2017-10-12] MEDS: Sodium Chloride 0.9% 1,000 ML IV SCH (21:01)
[2017-10-12] MEDS: Gabapentin 300 MG CAP PO SCH (21:57)
[2017-10-12] MEDS: Mycophenolate 250 MG CAP PO SCH (21:58)
[2017-10-12] MEDS: Piperacillin/Tazobactam 3.375 GM in Sodium Chloride 0.9% 100 ML IVPB SCH (22:00)
[2017-10-13 01:29] VITALS: BMI 18.1
--- NOTE | 2017-10-13 02:06 | CON ---
DATE OF CONSULTATION: 10/12/2017 Consultation is requested for emphysematous cystitis. HISTORY OF PRESENT ILLNESS: The patient is a 72-year-old female well known to Dr. Hernandez, however, for some reason, I am unable to see any consultation recently dictated by her in [facility]; however, I was able to access notes from our clinic. The patient was hospitalized recently for CMV colitis, had urinary tract infection and Villanueva previously. She was discharged for second time to a [facility]pc or rehabilitation facility and within a few days, was already feeling poorly and returned. She reports that the catheter has been out for approximately 3 weeks and in the past week, she has noted smaller, weaker, voids every 3 to 4 hours, and nocturia x0, but she is incontinent overnight. She does wear 3 pads during the day and 2 at night and she is not regularly ambulatory. She has not seen any hematuria and she has no known stones. 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 PAST MEDICAL HISTORY: Lupus with lupus nephritis and chronic renal insufficiency, recurrent urinary tract infections, prior retention, adrenal insufficiency. PAST SURGICAL HISTORY: Includes splenectomy, renal artery embolization on the left for her AML. There is documentation of reports of the lung mass, although patient and family are unaware of this. 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 She had total abdominal hysterectomy with bilateral salpingo-oophorectomy for bleeding and was noted to have a benign left ovarian mass, but no cancer. MEDICATIONS: Include Lasix, vitamin D, calcitriol, Dulcolax, amlodipine, Protonix, CellCept, Neurontin, Plaquenil, nystatin, magnesium, Megace, Procrit, Diflucan, lidocaine patches, prednisone 25 mg. ALLERGIES: Include SULFA. SOCIAL HISTORY: She never smoked, she drinks maybe once a month and no other drugs. REVIEW OF SYSTEMS: Reveal no nausea, vomiting, fever, or chills prior diarrhea with colitis, but that is resolved. She had soft small stools recently. She has no chest pain, no shortness of breath. Remote Pap smears. Mammogram, she cannot remember how long that has been. She had a colonoscopy and endoscopy in August of this year, which revealed the ulcers related to CMV. PHYSICAL EXAMINATION: GENERAL: She is alert and oriented in the bed and in no distress. VITAL SIGNS: Temperature is 98.1, heart rate 111, respiratory rate 16, 99% on room air, and blood pressure 156/78. She is comfortable without any diaphoresis or flushing. NECK: She had no JVD. CARDIOVASCULAR: Regular rhythm, but tachycardic without any obvious murmurs, gallops, or rubs. LUNGS: Clear to auscultation bilaterally. ABDOMEN: Softly distended with scars noted, but nontender. Urine was drained in a Villanueva, which was brown in nature consistent with bilirubin, which was found in the urinalysis. LABORATORY DATA AND X-RAY FINDINGS: CBC revealed anemia and platelets of 125, which is around her baseline it has been less down to 91. BUN and creatinine of 46 and 2.33, it has been 5 and 2.2 in the recent past and the best is 1.37. Her average is more around 1.5 to 1.7. Her urinalysis revealed too numerous to count wbc's, too numerous to count rbc's, 4+ bacteria, no squamous cells with a culture pending. Urinalysis from 09/17/2017 showed 21-50 wbc's, too numerous to count rbc's, 4+ bacteria, and 0-3 squamous cells with culture of E. coli and Enterococcus. CT scan without contrast from 10/12/2017 revealed calcified left kidney and parenchyma with an atrophy component and an extension consistent with prior AML. The bladder was then distended to the umbilicus with air up to about 3 cm and then urine and the henderson were filled with air consistent with episode of cystitis. Left transverse colon was filled with stool and some dilation of the colon more proximal. The sigmoid and rectum were not full of stool. There was right hydroureteronephrosis tubes down to the distended bladder, which was presumably the cause of obstruction, as there was no stone. Looked at a CT scan of the pelvis from 08/25/2017, which also include what appeared to be a cystogram, which was normal. On 06/08/2017 revealed abdomen and pelvis showed that the bladder was not distended and there was no hydronephrosis. ASSESSMENT: A 72-year-old female with prior urinary tract infections and retention, now with emphysematous cystitis and retention, currently on Zosyn with an indwelling Villanueva. She will need to keep both the Villanueva and IV antibiotics for an extended time and I will review this with Dr. Hernandez. She will continue to follow her in-house and give further recommendations. KADEN
[2017-10-13] MEDS: Piperacillin/Tazobactam 3.375 GM in Sodium Chloride 0.9% 100 ML IVPB SCH ×3 (05:09→22:01)
[2017-10-13 06:25] LABS: Anion Gap 13 mmol/L (10-20); BUN (Urea Nitrogen) 36 mg/dL (9.8-20.1); Calc. Creatinine Clearance 18 mL/min (70-130); Calcium 7.3 mg/dL (7.8-10.44); Carbon Dioxide 12 mmol/L (23-31); Chloride 113 mmol/L (98-107); Estimated GFR-MDRD 26; Glucose 102 mg/dL (80-115); Potassium 4.1 mmol/L (3.5-5.1); Sodium 134 mmol/L (136-145)
[2017-10-13 06:28] LABS: Acanthocytes MODERATE= 6-15 cells (100X) (None Seen); Band 5 % (5-11); Burr Cells SLIGHT = 2-5 cells (100X) (0-1/hpf); Hemoglobin 7.4 g/dL (12.0-16.0); Lymphocytes 2 % (21-51); MDiff Complete? YES; Mean Corpuscular HGB CONC 30.8 g/dL (32.0-36.0); Mean Corpuscular Hemoglobin 30.5 pg (27.0-31.0); Mean Corpuscular Volume 98.9 fl (81.0-99.0); Mean Platelet Volume 9.2 fL (7.4-10.4); Monocytes 5 % (0-10); Neutrophil 88 % (42-75); Nucleated RBC 2 % (0); PLT Morphology Comment Appears Decreased; Platelet Count 103 thou/uL (130-400); Polychromasia SLIGHT = 2-3 cells (100X) (0-2/hpf); RBC Distribution Width 23.6 % (11.5-14.5); Red Blood Cell (RBC) Count 2.44 mill/uL (4.20-5.40); Schistocytes SLIGHT = 2-5 cells (100X) (0-1/hpf); White Blood Cell (WBC) Count 6.4 thou/uL (4.8-10.8)
[2017-10-13] MEDS: Furosemide 20 MG TAB PO SCH (08:15)
[2017-10-13] MEDS: Gabapentin 300 MG CAP PO SCH ×2 (08:15→21:48)
[2017-10-13] MEDS: Bisacodyl 10 MG SUPP PR SCH (08:15)
[2017-10-13] MEDS: Amlodipine 10 MG TAB PO SCH (08:15)
[2017-10-13] MEDS: Calcitriol 0.25 MCG CAP PO SCH (08:15)
--- NOTE | 2017-10-13 08:52 | PRG ---
DATE OF SERVICE: 10/13/2017 INPATIENT PROGRESS NOTE HISTORY OF PRESENT ILLNESS: Ms. Burnett is a 72-year-old female readmitted for cystitis and urinary retention. The patient was seen by Dr. Snowden yesterday as formal consult. She was previously admitted in August secondary to multiple medical comorbidities including CMV esophagitis colitis, emphysematous cystitis discharged with bladder rehab with clean intermittent catheterization as she had persisant urinary retention with PVR 400-500 mL. Upon review of records, patient did re-present to the hospital due to deconditioned status, exacerbation of her comorbidities. She was sent back to rehab with instructions for intermittent catheterization; however, it appears that this has not been routinely performed. Daughter at bedside who relates that the patient return to rehab, they were not catheterizing her routinely. She has been incontinent . She she had abdominal pain , she was transitioned to the emergency room. The patient herself relates that she was not routinely bladder scanned. Repeat CT scan demonstrates worsening of her emphysematous cystitis. Bladder is grossly distended causing right hydronephrosis. She states that she feels better with the Villanueva catheter that remains in situ. Villanueva catheter was placed by the emergency room. Per patient, over 1 liter obtained from the emergency room. ER records reviewed, 18 Indonesian Villanueva catheter placed, output is not documented. PHYSICAL EXAMINATION: VITAL SIGNS: Stable. She is afebrile, 98.1, 95, 16, 96, 161/79. I's and O's 1300 in and 1750 out. General: Deconditioned elderly female, daughter at bedside HEENT; grossly unremarkable Heart: Regular rate Lungs: Distant decreased respiratory effort ABDOMEN: Soft. There is no crepitus or induration. There is mild suprapubic tenderness. No CVA tenderness. Villanueva catheter demonstrating grossly infected urine. There is component of hematuria and sediment in her tubing. I did gently flush the Villanueva catheter at bedside with immediate clearing. PERTINENT LABORATORY DATA: White count 6, hemoglobin 7, admitting creatinine is 2.3, currently is 1.9, BUN 36, potassium 4.4, platelet is 103. Previous urine culture from 09/17/2017 demonstrates E. coli Enterococcus multidrug resistant, sensitive to Zosyn which the patient is currently being treated with. PERTINENT IMAGING DATA: CT on 10/12/2017, left kidney is atrophic with atrophy. Parenchymal calcific extension consistent with history of angiomyolipoma with embolization. Bladder is grossly distended to the level of the umbilicus with emphysematous cystitis. Right hydronephrosis to the level of the distended bladder. Moderate pneumatosis and the space of Retzius anterior to the bladder. Some air dissected around the urethra. Tiny amount of gas lateral to the right obturator internists muscle. Left lobe infiltrate worse comparison to the very 2018. IMPRESSION AND PLAN: 1. Ms. Burnett is a 72-year-old female with prior history of urinary tract infection, urinary retention with recurrent emphysematous cystitis. 2. History of urinary retention with acute cystitis, admitted on 08/2017, emphysematous cystitis component. 3. History of urinary retention: Unlikely treated effectively with clean intermittent catheterization/PVR bladder rehabilitation 3. History of left atrophic kidney, status post embolization of angiomyolipoma. 4. Recent admission due to CMV esophagitis, colitis. 5. Severely deconditioned status. Recommend continue indwelling Villanueva catheter. It is unfortunate that patient was not intermittently catheterized aggressively @rehabilitation. She presents with recurrent retention, worsening of her emphysematous cystitis. She will continue on indwelling Villanueva catheter given degree of complicated urinary tract infection and hydronephrosis. continue to monitor renal function. I do expect her renal function to improve with decompression of the bladder. Repeat imaging as clinically indicated. At this point, patient does not require a stent or nephrostomy tube, repeat imaging would be advised if he compensation i.e. high fever, leukocytosis, worsening renal function. Nephrostomy tube or ureteral stent would be indicated if she fails management with indwelling Villanueva catheter. Emphysematous cystitis is usually treated with bladder decompression, aggressive IV antibiotics, optimizing comorbidities. This is usually seen in diabetics. She does have immunocompromised state due to chronic steroid use.. Infectious Disease consult would be advised. Recommend no anticoagulation at this time due to degree of hematuria and history of thrombocytopenia. MTDD
[2017-10-13] MEDS: Mycophenolate 250 MG CAP PO SCH ×2 (09:35→22:01)
[2017-10-13] MEDS: Sodium Chloride 0.9% 1,000 ML IV SCH ×3 (09:35→21:46)
--- NOTE | 2017-10-13 14:49 | PDOC.PN ---
- Subjective Encounter Start Date: 10/13/17 Encounter Start Time: 14:30 Subjective: f/u for recurrent urinary retention, emphysematous cystitis with Ucx -: GNR on Zosyn. Kerr placed in ED due to retention with recs to continue -: indefinitely. - Objective MAR Reviewed: Yes Vital Signs & Weight: Vital Signs (12 hours) Temp Pulse Resp BP Pulse Ox 10/13/17 12:00 98.0 F 102 H 20 155/75 H 97 10/13/17 08:20 97.2 F L 95 16 10/13/17 08:16 95 16 161/79 H 96 10/13/17 04:00 98.1 F 92 18 164/78 H 93 L Weight Admit Weight 89 lb 15.178 oz Weight 89 lb 15.178 oz I&O: 10/12/17 10/13/17 10/14/17 06:59 06:59 06:59 Intake Total 1300 Output Total 1750 Balance -450 Result Diagrams: 10/13/17 05:04 10/13/17 05:04 Additional Labs: Microbiology 10/12/17 13:35 Urine kerr catheter Urine Culture - Preliminary Gram Negative Ariel 10/12/17 13:15 Venous blood - Left Arm Blood Culture - Preliminary Specimen has been received and culture in progress. No Growth to date. 10/12/17 13:15 Picc Line - Pending Blood Culture - Preliminary Specimen has been received and culture in progress. No Growth to date. Laboratory Tests 10/12/17 10/12/17 10/12/17 04:10 13:16 13:16 Hgb 8.9 L Plt Count 125 L Neutrophils % 85.7 H Neutrophils % (Manual) Sodium 133 L Carbon Dioxide 11 L Creatinine 2.21 H 2.33 H Lipase 99 H 10/13/17 05:04 Hgb Plt Count Neutrophils % Neutrophils % (Manual) 88 H Sodium Carbon Dioxide Creatinine Lipase Radiology Reviewed by me: Yes (CT abd - emphysematous cystitis, urinary retention) EKG Reviewed by me: Yes (Tele - SR) Phys Exam - Physical Examination weak, tired appearing HEENT: PERRLA, oral pharynx no lesions Neck: no JVD, supple Respiratory: no wheezing, clear to auscultation bilateral Cardiovascular: RRR Gastrointestinal: soft, non-tender, no distention, positive bowel sounds Musculoskeletal: no edema, pulses present Neurological: normal sensation, moves all 4 limbs Psychiatric: A&O x 3 Skin: normal turgor, cap refill <2 seconds Dx/Plan (1) Acute urinary retention Code(s): R33.8 - OTHER RETENTION OF URINE Status: Acute Comment: Kerr placed, likely will need indefinitely, monitor outputs, appreciate Urology assistance (2) Acute worsening of stage 3 chronic kidney disease Code(s): N18.3 - CHRONIC KIDNEY DISEASE, STAGE 3 (MODERATE) Status: Acute Comment: Improved with Kerr drainage, avoid nephrotoxic meds and contrast media (3) Emphysematous cystitis Code(s): 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 coli and enterococcus spp (6) Physical deconditioning Code(s): R53.81 - OTHER MALAISE Status: Chronic Comment: PT/OT for mobilization, back to rehab after acute conditions stabilized (7) SLE (systemic lupus erythematosus) Code(s): M32.9 - SYSTEMIC LUPUS ERYTHEMATOSUS, UNSPECIFIED Status: Chronic Qualifiers: Systemic lupus erythematosus type: unspecified Comment: Stable, no acute flare - Plan kerr catheter, continue antibiotics, PT/OT, delinquency prevention social worker, out of bed/ ambulate, DVT proph w/SCDs Stable overall -: Continue Kerr catheter for bladder decompression -: Await final Ucx results -: Continue Cellcept, Prednisone, Plaquenil -: AM lab: BMP, CBC * .
[2017-10-13] MEDS ORDERED: Simethicone Chewable 80 MG TAB PO PRN (15:01)
[2017-10-13] MEDS ORDERED: Phenazopyridine HCl 97.5 MG TABLET PO PRN (15:01)
[2017-10-13] MEDS ORDERED: cloNIDine 0.1 MG TAB PO PRN (15:01)
[2017-10-13] MEDS ORDERED: Senokot 8.6 MG TAB PO PRN (15:01)
[2017-10-13] MEDS ORDERED: traMADol HCl 50 MG TAB PO PRN (15:01)
[2017-10-13] MEDS ORDERED: DARBEPOETIN ALFA IN POLYSORBAT 60 MCG SC SCH (15:15)
[2017-10-13] MEDS: Acetaminophen 325 MG TAB PO PRN (16:41)
[2017-10-13] MEDS: Nystatin 500,000 UNITS/5 ML UDCUP SSW SCH ×2 (16:41→21:47)
[2017-10-13] MEDS: Fluconazole 100 MG TAB PO SCH (18:03)
--- NOTE | 2017-10-13 20:22 | CON ---
DATE OF CONSULTATION: 10/13/2017 HISTORY OF PRESENT ILLNESS: A 72-year-old patient who has a history of systemic lupus erythematosus for many years with nephritis treated with Cytoxan and prednisone, currently on CellCept, mycophenolate and prednisone. The patient has had problems with urinary tract infection in the past with resistant pathogens and subsequently developed CMV gastroenteritis managed with valganciclovir. The patient had an episode of severe neutropenia from valganciclovir and decrease in renal function and that agent had been discontinued briefly and then resumed when the renal function improved and neutropenia resolved. Last time I saw her was in 09/18/2017. She had developed oral ulcers which have improved now. Eventually, she was discharged and I believe she went to rehabilitation. There, she developed urinary retention. She was admitted yesterday with bladder distention and a CT scan showing severe pneumatosis of the urinary bladder with very distended urinary bladder with evidence of emphysematous cystitis a moderate right-sided obstructive uropathy with moderate right hydronephrosis. The patient had a catheter inserted by urologist. She is feeling better. Pain in the abdomen has resolved. Reportedly, patient had had a bladder scan evaluations at the rehab and those showed zero residual which is probably related to either faulty technique or problem with the machine. Denies headaches. She had some constipation and had to be treated with an enema recently. No respiratory symptoms, no vomiting, no abdominal pain after the bladder was drained. PAST MEDICAL HISTORY: SLE with nephritis; renal insufficiency, stage 3; neurogenic bladder with retention, recurrent UTIs associated with it; CMV gastroenteritis with improvement, on Valcyte; neutropenia associated with Valcyte; and renal insufficiency. ALLERGIES: SULFA DRUGS. PAST SURGICAL HISTORY: Hysterectomy, splenectomy, ovarian mass removal. SOCIAL HISTORY: Never a smoker. FAMILY HISTORY: Noncontributory. CURRENT MEDICATIONS: Tylenol, Norvasc, Dulcolax, Rocaltrol, Tums, vitamin D, Catapres, Diflucan, Lasix, Neurontin, Plaquenil, lactulose, morphine, CellCept, darbepoetin, Mycostatin, Protonix, Zosyn, propoxyphene, valganciclovir 450 mg every 2 days. PHYSICAL EXAMINATION: VITAL SIGNS: T-max 98.5, blood pressure 140/75, pulse 105, respirations 15-20, O2 sat 95%. GENERAL: Appears chronically ill. Multiple areas of bruising in the skin of chest and appendicular structures. She has a peripheral IV access and a Villanueva catheter with clear urine drainage. Urinary output 1700 over the past 24 hours. SKIN: With multiple areas of bruising as noted above. No lymphadenopathy. HEENT: Ocular movements conjugate. Sclerae white. Oral cavity with numerous teeth in place with quite a bit of decay and gum disease. NECK: Supple, jugular vein distention. LUNGS: Symmetric clear breath sounds. HEART: S1, S2, regular rate. No S3, S4. ABDOMEN: Soft, without tenderness, no distention, no ascites. No bladder distention. EXTREMITIES: No joint inflammatory activity. She is able to move extremities equally. NEUROLOGIC: Cognitive function appears to be intact. LABORATORY DATA: White cell count is 8.3 and 6.4, hemoglobin 8.9 and 7.4, platelets 125,000 and 103,000, 88% neutrophils. Creatinine is up to 2.32 and 1.91 with early improvement. Albumin 3.0, which is quite a bit of improvement since the last time I saw her. Microbiology with gram negative oswaldo retrieved from urine culture. Previous culture from 09/17 with E. coli and Enterococcus species. The abdomen and pelvis CT as it has been reviewed above. ASSESSMENT: 1. Systemic lupus erythematosus with nephritis. 2. Cytomegalovirus gastroenteritis, improved on Valcyte. 3. Recent episode of neutropenia associated with Valcyte toxicity secondary to worsening renal function. 4. Urinary retention and worsening renal function and evidence of emphysematous cystitis. DISCUSSION: Patient will continue on Zosyn. We will have to place a PICC line and continue treatment intravenously depending on the results of the organism susceptibility from the latest urine culture. Check CMV DNA PCR to restage her cytomegalovirus infection. Continue Valcyte at the current dose level. Most patients with emphysematous cystitis can be treated conservatively but the duration of therapy is necessarily longer than less complicated cystitis. MTDD
[2017-10-13] MEDS: Polyethylene Glycol OPTH DROP 15 ML BOT EA EYE SCH (22:04)
[2017-10-13] MEDS: Lidocaine Patch Removal TOP SCH (22:31)
[2017-10-14] MEDS: Acetaminophen 325 MG TAB PO PRN ×3 (03:49→22:15)
[2017-10-14] MEDS: Piperacillin/Tazobactam 3.375 GM in Sodium Chloride 0.9% 100 ML IVPB SCH ×3 (06:44→22:07)
[2017-10-14 06:57] LABS: Anion Gap 12 mmol/L (10-20); BUN (Urea Nitrogen) 29 mg/dL (9.8-20.1); Calc. Creatinine Clearance 24 mL/min (70-130); Calcium 7.6 mg/dL (7.8-10.44); Carbon Dioxide 13 mmol/L (23-31); Chloride 115 mmol/L (98-107); Estimated GFR-MDRD 37; Glucose 73 mg/dL (80-115); Sodium 137 mmol/L (136-145)
--- NOTE | 2017-10-14 08:21 | PRG ---
DATE OF SERVICE: 10/14/2017 SUBJECTIVE: The patient continues to feel weak, daughter at bedside. She does relate that her lower abdominal suprapubic discomfort has improved. Denies chills. Denies diarrhea. PHYSICAL EXAMINATION: VITAL SIGNS: Stable, 97.8, 118, 18, 94%, 160/80. I's and O's 2300 in, 2100 out of clear urine. Abdomen: Soft nontender nondistended minimal/mild suprapubic tenderness. No rigidity no rebound no lower abdominal crepitus : Severe atrophy Villanueva catheter adequate and secured with clear urine. PERTINENT LABORATORY: There is no recent CBC. Yesterday, hemoglobin was 7.4. Today, her potassium is 3.0, BUN 29. Renal function improved, creatinine at admission 2.3, currently 1.39 with indwelling Villanueva catheter. Urine culture gram-negative, sensitivity and ID is pending. Blood culture negative x2. IMPRESSION AND PLAN: 1. Ms. Burnett is a 72-year-old female with recent onset of urinary retention , initially found to have urinary retention on last admission 09/02/2017 with postvoid residual of 700-800 mL The patient has no prior history of urinary retention, presented with emphysematous cystitis. 2. Exacerbation of his emphysematous cystitis with urinary retention. 3. History of left atrophic kidney, secondary to large angiomyolipoma multiple embolization. 4. History of CMV, esophagitis, colitis. 5. History of lupus nephritis on chronic steroids. 6. Severely deconditioned status. continue her indwelling Villanueva catheter, as the patient was not aggressively monitor with CICs in rehab facility. As she has a complicated UTI, emphysematous cystitis which is a rare entity, with recurrent urinary retention she will keep her indwelling Villanueva catheter for a few weeks. Infectious Disease consult appreciated, currently on IV Zosyn, Diflucan. PICC line is planned for prolonged IV antibiotic therapy. Emphysematous cystitis does have mortality rate of approximately 7%. This is usually managed with aggressive IV antibiotics and bladder decompression. From a urologic perspective, the patient will benefit from IV antibiotic therapy minimum 4-6 weeks. Her indwelling Villanueva catheter will remain in situ during this period. Follow renal function. [facility]
[2017-10-14] MEDS: Amlodipine 10 MG TAB PO SCH (08:43)
[2017-10-14] MEDS: Bisacodyl 10 MG SUPP PR SCH (08:43)
[2017-10-14] MEDS: predniSONE 50 MG TAB PO SCH (08:43)
[2017-10-14] MEDS: Furosemide 20 MG TAB PO SCH (08:45)
[2017-10-14] MEDS ORDERED: Sodium Bicarbonate 150 MEQ, Admixture Fee 1 EACH in Dextrose 5% in Water 1,000 ML IV SCH ×3 (08:45)
[2017-10-14] MEDS ORDERED: Potassium Chloride 20 MEQ TAB PO SCH (08:45)
[2017-10-14] MEDS: Calcitriol 0.25 MCG CAP PO SCH (08:45)
[2017-10-14] MEDS: Mycophenolate 250 MG CAP PO SCH ×2 (08:46→22:15)
[2017-10-14] MEDS: Lidocaine 5% Patch TD SCH (08:46)
[2017-10-14] MEDS: Hydroxychloroquine Sulfate 200 MG TAB PO SCH (08:46)
[2017-10-14] MEDS: Gabapentin 300 MG CAP PO SCH ×2 (08:46→22:06)
[2017-10-14] MEDS: Nystatin 500,000 UNITS/5 ML UDCUP SSW SCH ×4 (08:47→22:06)
[2017-10-14] MEDS: Polyethylene Glycol OPTH DROP 15 ML BOT EA EYE SCH ×2 (08:48→22:55)
[2017-10-14 09:39] LABS: Hemoglobin 7.9 g/dL (12.0-16.0); Mean Corpuscular HGB CONC 30.8 g/dL (32.0-36.0); Mean Corpuscular Hemoglobin 30.4 pg (27.0-31.0); Mean Corpuscular Volume 98.8 fl (81.0-99.0); Mean Platelet Volume 12.4 fL (7.4-10.4); Platelet Count 95 thou/uL (130-400); RBC Distribution Width 22.6 % (11.5-14.5); Red Blood Cell (RBC) Count 2.58 mill/uL (4.20-5.40); White Blood Cell (WBC) Count 3.5 thou/uL (4.8-10.8)
[2017-10-14 09:40] LABS: Band 10 % (5-11); Basophilic Stippling SLIGHT = 1-2 cells (100X) (None Seen); Burr Cells SLIGHT = 2-5 cells (100X) (0-1/hpf); Eosinophils 2 % (0-10); Lymphocytes 4 % (21-51); MDiff Complete? YES; Neutrophil 84 % (42-75); Nucleated RBC 4 % (0); PLT Morphology Comment Appears Decreased; Poikilocytosis MODERATE=16-30 cells (100X) (0-5/hpf); Polychromasia SLIGHT = 2-3 cells (100X) (0-2/hpf); Schistocytes SLIGHT = 2-5 cells (100X) (0-1/hpf)
--- NOTE | 2017-10-14 10:32 | CON ---
DATE OF CONSULTATION: 10/13/2017 CONSULTING PHYSICIAN: Dr. Paul. REASON FOR CONSULT: Acute kidney injury. REASON FOR ADMISSION: Abdominal pain. HISTORY OF PRESENT ILLNESS: This is a 72-year-old female with history of lupus nephritis, c hronic kidney disease, recurrent UTI, and hypertension, who came to the hospital with above complaint s and was found to have elevated creatinine. Nephrology is consulted. Patient is feeling better. H er baseline creatinine seems like around 1.4, 1.3, 1.4, and was 2.3 on admission and this morning it was 1.9 with hydration. Patient is feeling better. No shortness of breath or chest pain. No fever or chills. No nausea, vomiting, diarrhea. Daughter was at the bedside. PAST MEDICAL HISTORY: Positive for SLE, CMV colitis, lupus nephritis, CKD stage 3, recurrent UTIs, u rinary retention, tonsillar hypertrophy. PAST SURGICAL HISTORY: Splenectomy, hysterectomy, renal artery embolization. HOME MEDICATIONS: Valcyte, tramadol, guaifenesin, Benadryl, Mylicon, Senna, Azo, Protonix, Zofran, M ycostatin, CellCept, Imodium, Plaquenil, Lasix, Diflucan, vitamin D3, Tums. ALLERGIES: IRON, SULFA, MAGNESIUM, SULFATE. SOCIAL HISTORY: No smoking, alcohol, or illicit drug abuse. FAMILY HISTORY: Positive for hypertension. REVIEW OF SYSTEMS: The following complete review of systems was negative, unless otherwise mentioned in the HPI or below: Constitutional: Weight loss or gain, ability to conduct usual activities. Sk in: Rash, itching. Eyes: Double vision, pain. ENT/Mouth: Nose bleeding, neck stiffness, pain, te nderness. Cardiovascular: Palpitations, dyspnea on exertion, orthopnea. Respiratory: Shortness of breath, wheezing, cough, hemoptysis, fever, or night sweats. Gastrointestinal: Poor appetite, abdo milan pain, heartburn, nausea, vomiting, constipation, or diarrhea. Genitourinary: Urgency, frequen cy, dysuria, nocturia. Musculoskeletal: Pain, swelling. Neurologic/Psychiatric: Anxiety, depressi on. Allergy/Immunologic: Skin rash, bleeding tendency. PHYSICAL EXAMINATION: GENERAL: Shows well-built female in no apparent distress. VITAL SIGNS: Temperature 98.0, pulse 102, respiratory rate 20, blood pressure 155/75. HEENT: Atraumatic, normocephalic. Oral mucosa is moist. NECK: Supple. CARDIOVASCULAR: S1, S2 heard. Rate and rhythm regular. RESPIRATORY: Clear. ABDOMEN: Soft. MUSCULOSKELETAL: 1+ edema. DERMATOLOGIC: No skin rash. NEUROLOGIC: Alert, awake. PSYCHIATRIC: Normal mood and affect. LABORATORY DATA AND X-RAY FINDINGS: Potassium is 4.1, BUN is 36, creatinine is 1.9. ASSESSMENT AND PLAN: 1. Acute kidney injury on chronic kidney disease, 3. Renal function, slight improvement with hydrat ion. Avoid nephrotoxins. 2. History of lupus nephritis 3. History of chronic kidney disease, stage 3. 4. Acidosis. We will consider bicarbonate if not significantly better. 5. Anemia, most likely from chronic disease. 6. Edema, controlled. 7. Pyuria. Follow up cultures. 8. Continue supportive care. From renal standpoint, seems to be getting better. We will follow. M onitor bicarbonate level. 9. Hypoalbuminemia. We will follow.
--- NOTE | 2017-10-14 15:22 | PDOC.PN ---
- Subjective Encounter Start Date: 10/14/17 Encounter Start Time: 15:20 Subjective: f/u for emphysematous cystitis, urinary retention with Kerr decompression -: and UTI with E. coli on Zosyn. Still weak and mild abd discomfort. - Objective MAR Reviewed: Yes Vital Signs & Weight: Vital Signs (12 hours) Temp Pulse Resp BP Pulse Ox 10/14/17 12:59 98.6 F 122 H 16 142/77 H 94 L 10/14/17 08:37 97.7 F 118 H 18 94 L 10/14/17 03:51 97.7 F 118 H 18 168/80 H 94 L Weight Admit Weight 89 lb 15.178 oz Weight 89 lb 15.178 oz I&O: 10/13/17 10/14/17 10/15/17 06:59 06:59 06:59 Intake Total 1300 2320 Output Total 1750 2100 Balance -450 220 Result Diagrams: 10/14/17 05:50 10/14/17 05:50 Additional Labs: Microbiology 10/12/17 13:35 Urine kerr catheter Urine Culture - Preliminary Gram Negative Ariel 10/12/17 13:15 Venous blood - Left Arm Blood Culture - Preliminary Specimen has been received and culture in progress. No Growth to date. 10/12/17 13:15 Picc Line - Pending Blood Culture - Preliminary Specimen has been received and culture in progress. No Growth to date. Laboratory Tests 10/12/17 10/12/17 10/12/17 04:10 13:16 13:16 Hgb 8.9 L Plt Count 125 L Neutrophils % 85.7 H Neutrophils % (Manual) Sodium 133 L Carbon Dioxide 11 L Creatinine 2.21 H 2.33 H Lipase 99 H 10/13/17 10/13/17 05:04 05:04 Hgb 7.4 L Plt Count 103 L Neutrophils % Neutrophils % (Manual) 88 H Sodium Carbon Dioxide 12 L Creatinine 1.91 H Lipase EKG Reviewed by me: Yes (Tele - Sinus tach in low-100's) Phys Exam - Physical Examination Constitutional: NAD tired, frail appearing HEENT: PERRLA, oral pharynx no lesions Neck: no JVD Respiratory: no wheezing, clear to auscultation bilateral tachycardic mild TTP in lower quadrants, no rebound Gastrointestinal: soft, no distention, positive bowel sounds Musculoskeletal: no edema, pulses present Neurological: normal sensation, moves all 4 limbs Psychiatric: A&O x 3 Skin: normal turgor, cap refill <2 seconds Deviation from normal: Kerr with clear urine Dx/Plan (1) Acute urinary retention Code(s): R33.8 - OTHER RETENTION OF URINE Status: Acute Comment: Kerr placed, likely will need indefinitely, monitor outputs, appreciate Urology assistance (2) Acute worsening of stage 3 chronic kidney disease Code(s): N18.3 - CHRONIC KIDNEY DISEASE, STAGE 3 (MODERATE) Status: Acute Comment: Improved with Kerr drainage, avoid nephrotoxic meds and contrast media (3) Emphysematous cystitis Code(s): N30.80 - OTHER CYSTITIS WITHOUT HEMATURIA Status: Chronic Comment: Continue Zosyn likely 6 weeks, PICC line placed LUE (4) Metabolic acidosis Code(s): E87.2 - ACIDOSIS Status: Chronic Comment: Due to urinary retention and UTI, CKD, improved (5) UTI (urinary tract infection) Status: Acute Comment: >100K e. coli, continue Zosyn based on recent Ucx showing e. coli and enterococcus spp, PICC line placed LUE with plans for Zosyn x 6 weeks (6) Physical deconditioning Code(s): R53.81 - OTHER MALAISE Status: Chronic Comment: PT/OT for mobilization, back to rehab after acute conditions stabilized (7) SLE (systemic lupus erythematosus) Code(s): M32.9 - SYSTEMIC LUPUS ERYTHEMATOSUS, UNSPECIFIED Status: Chronic Qualifiers: Systemic lupus erythematosus type: unspecified Comment: Stable, no acute flare - Plan continue antibiotics, PT/OT, social service worker, speech therapy, DVT proph w/SCDs continue supportive mgmt -: Likely will need SNF care -: Zosyn x 6 weeks -: Continue Diflucan 100mg daily -: Continue KCL replacement * AM lab: BMP, CBC
[2017-10-14] MEDS: Potassium Chloride 20 MEQ TAB PO SCH (17:53)
[2017-10-14] MEDS: Fluconazole 100 MG TAB PO SCH (17:53)
[2017-10-15] MEDS: Piperacillin/Tazobactam 3.375 GM in Sodium Chloride 0.9% 100 ML IVPB SCH ×3 (05:38→23:34)
[2017-10-15 06:17] LABS: Anion Gap 12 mmol/L (10-20); BUN (Urea Nitrogen) 29 mg/dL (9.8-20.1); Calc. Creatinine Clearance 25 mL/min (70-130); Calcium 7.5 mg/dL (7.8-10.44); Carbon Dioxide 22 mmol/L (23-31); Chloride 109 mmol/L (98-107); Estimated GFR-MDRD 39; Glucose 93 mg/dL (80-115); Magnesium 1.1 mg/dL (1.6-2.6); Potassium 4.7 mmol/L (3.5-5.1); Sodium 138 mmol/L (136-145)
[2017-10-15 06:25] LABS: Acanthocytes MODERATE= 6-15 cells (100X) (None Seen); Anisocytosis SLIGHT = 6-15 cells (100X) (0-5/hpf); Band 3 % (5-11); Hemoglobin 6.9 g/dL (12.0-16.0); Lymphocytes 8 % (21-51); MDiff Complete? YES; Mean Corpuscular HGB CONC 31.5 g/dL (32.0-36.0); Mean Corpuscular Hemoglobin 31.2 pg (27.0-31.0); Mean Corpuscular Volume 98.8 fl (81.0-99.0); Mean Platelet Volume 10.4 fL (7.4-10.4); Monocytes 10 % (0-10); Neutrophil 79 % (42-75); PLT Morphology Comment Appears Decreased; Platelet Count 65 thou/uL (130-400); RBC Distribution Width 22.4 % (11.5-14.5); Red Blood Cell (RBC) Count 2.21 mill/uL (4.20-5.40); Schistocytes SLIGHT = 2-5 cells (100X) (0-1/hpf); White Blood Cell (WBC) Count 3.4 thou/uL (4.8-10.8)
--- NOTE | 2017-10-15 08:06 | PRG ---
DATE OF SERVICE: 10/15/2017 SUBJECTIVE: Denies nausea, vomiting, chills, has had multiple small loose bowel movements. Has continuing suprapubic discomfort; however, this is improving. PHYSICAL EXAMINATION: VITAL SIGNS: T-max 99, temperature current 98.4, 87, 17, 94%, blood pressure 128/61. I's and O's 2860 in, 2250 out, clear dilute urine. Seven bowel movements over the last 24 hours. ABDOMEN: Soft. No rigidity, no rebound. Suprapubic tenderness. No crepitus. GENITOURINARY: Villanueva catheter secure, draining clear dilute urine. LABORATORY DATA: White count 3.4, hemoglobin is 6.9, platelet count is 65,000. BUN 29, creatinine 1.35. Urine culture; E. coli multidrug resistant, sensitive to Zosyn, resistant to quinolones, cephalosporins. It is sensitive to Macrobid, Bactrim. Blood culture is negative. IMPRESSION AND PLAN: 1. Ms. Burnett is a 72-year-old female with recent onset of urinary retention with recurrent emphysematous cystitis. 2. History of urinary retention, 700-800 mL. 3. CMV esophagitis colitis. 4. History of left atrophic kidney, secondary to large angiomyolipoma multiple embolization. 5. Lupus nephritis on chronic steroids. 6. Chronic renal insufficiency. appreciate Infectious Disease consult. As she has complicated cystitis, recurrent emphysematous E. coli urinary tract infection, prolonged IV antibiotic is warranted. Again, from urologic perspective, I do recommend IV antibiotics for minimum of 4-6 weeks. She is not a candidate for oral antibiotic regimen given its sensitivity, i.e. Macrobid has poor tissue penetration Bactrim is contraindicated due to her renal insufficiency. Moreover, given severity of her cystitis IV antibiotic for a better tissue penetration is prudent, moreover the patient has overall immunocompromised state. 7. Anemia, thrombocytopenia, patient is not a candidate for anticoagulation. 8. Multiple loose bowel movements, would revise regarding stool culture, Hemoccult stool as there is evidence of anemia trending. As her hemoglobin is 6.9, consider transfusion. Long-term disposition to penitentiary facility given her comorbidities and deconditioned status. [facility]
[2017-10-15] MEDS ORDERED: DARBEPOETIN ALFA IN POLYSORBAT 60 MCG SC SCH (09:30)
[2017-10-15] MEDS: Polyethylene Glycol OPTH DROP 15 ML BOT EA EYE SCH ×2 (09:56→23:35)
[2017-10-15] MEDS: Nystatin 500,000 UNITS/5 ML UDCUP SSW SCH ×4 (09:56→23:34)
[2017-10-15] MEDS: Lidocaine 5% Patch TD SCH (09:56)
[2017-10-15] MEDS: Potassium Chloride 20 MEQ TAB PO SCH (09:57)
[2017-10-15] MEDS: Gabapentin 300 MG CAP PO SCH ×2 (09:59→23:36)
[2017-10-15] MEDS: Amlodipine 10 MG TAB PO SCH (09:59)
[2017-10-15] MEDS: Furosemide 20 MG TAB PO SCH (09:59)
[2017-10-15] MEDS: predniSONE 50 MG TAB PO SCH (09:59)
[2017-10-15] MEDS: Hydroxychloroquine Sulfate 200 MG TAB PO SCH (09:59)
[2017-10-15] MEDS: Calcitriol 0.25 MCG CAP PO SCH (10:01)
[2017-10-15] MEDS: Bisacodyl 10 MG SUPP PR SCH (10:01)
[2017-10-15] MEDS: Acetaminophen 325 MG TAB PO PRN (10:15)
[2017-10-15] MEDS: Mycophenolate 250 MG CAP PO SCH ×2 (10:15→23:36)
--- NOTE | 2017-10-15 10:16 | PRG ---
DATE OF SERVICE: 10/14/2017 NEPHROLOGY PROGRESS NOTE SUBJECTIVE: Patient was seen and examined at bedside and overnight events noted. Patient denies any shortness of breath or chest pain or palpitation. No history of nausea or vomiting or diarrhea or f ever or chills or cramps. OBJECTIVE: GENERAL: This is a well-built female in no apparent distress. VITAL SIGNS: Temperature 96, pulse 150, respiratory rate 18, blood pressure 142/77. HEENT: Atraumatic, normocephalic. Oral mucosa is moist. NECK: Supple. CARDIOVASCULAR: S1, S2 heard. Rate and rhythm regular. RESPIRATORY: Clear to auscultation. GASTROINTESTINAL: Abdomen is soft. MUSCULOSKELETAL: No tenderness. No edema. DERMATOLOGIC: No skin rash. NEUROLOGIC: Alert and awake and oriented x3. No focal neurologic deficits. Moving all the extremiti es. PSYCHIATRIC: Mood and affect normal. LABORATORY DATA: Potassium is 3.0, BUN is 29, creatinine is 1.3. ASSESSMENT AND PLAN: 1. Acute kidney injury on chronic kidney disease. Renal function is getting improvement, most likel y back to baseline. 2. Hypokalemia, replace. 3. Acidosis. We will change NS to bicarbonate drip. 4. Pyuria. Follow up cultures. 5. Anemia. 6. History of lupus. 7. We will change IV fluids to bicarbonate drip. Monitor and replace potassium aggressively. Monit or closely. Recheck magnesium in the morning.
[2017-10-15] MEDS ORDERED: Saccharomyces boulardii 250 MG CAP PO SCH ×2 (11:00)
[2017-10-15 11:15] LABS: Hemoglobin 7.7 g/dL (12.0-16.0)
--- NOTE | 2017-10-15 12:36 | PRG ---
DATE OF SERVICE: 10/15/2017 SUBJECTIVE: Patient was seen and examined at bedside and overnight events noted. Patient denies any shortness of breath or chest pain or palpitation. No history of nausea or vomiting or diarrhea or f ever or chills or cramps. OBJECTIVE: GENERAL: This is a well-built female in no apparent distress. VITAL SIGNS: Temperature 98.7, pulse 90, respiratory rate 16, blood pressure 137/78. HEENT: Atraumatic, normocephalic. Oral mucosa is moist. NECK: Supple. CARDIOVASCULAR: S1, S2 heard. Rate and rhythm regular. RESPIRATORY: Clear to auscultation. GASTROINTESTINAL: Abdomen is soft. MUSCULOSKELETAL: No tenderness. No edema. DERMATOLOGIC: No skin rash. NEUROLOGIC: Alert and awake and oriented x3. No focal neurologic deficits. Moving all the extremit ies. PSYCHIATRIC: Mood and affect normal. LABORATORY DATA: Potassium is 4.7, BUN is 29, creatinine is 1.3, bicarbonate is 22. ASSESSMENT AND PLAN: 1. Acute kidney injury on chronic kidney disease stage 3. Renal function is close to baseline. 2. Metabolic acidosis, better with bicarbonate. We will start on oral bicarbonate. 3. Hypokalemia, replaced and will stop potassium supplements. 4. History of lupus. 5. Anemia. Plan is to continue on oral bicarbonate.
[2017-10-15] MEDS: Fluconazole 100 MG TAB PO SCH (17:58)
--- NOTE | 2017-10-15 18:34 | PRG ---
DATE OF SERVICE: 10/15/2017 HISTORY: Ms. Burnett is still having what she describes as cramps when she has bowel movements. Sh e had a formed stool today in large amount. No respiratory symptoms, no vomiting, one episode of [place]. No change in neurological status. OBJECTIVE: VITAL SIGNS: She has been afebrile, blood pressure 130/60, pulse 95, respirations 16, O2 sat 95%. GENERAL: She is chronically ill, but in no acute distress. LUNGS: With clear breath sounds. HEART: S1, S2, regular rate. ABDOMEN: Slightly distended. Bowel sounds are somewhat increased. EXTREMITIES: She moves all extremities equally. LABORATORY DATA: Urine culture with E. coli which is susceptible to Zosyn, meropenem, nitrofurantoin , tobramycin, Bactrim, gentamicin, amikacin. White cell count 3.4, hemoglobin 6.9 and today 7.7, platelets 65,000. Creatinine 1.35, which is impr nava. The CMV DNA PCR is pending. ASSESSMENT AND DISCUSSION: Systemic lupus erythematosus with nephritis. CMV gastroenteritis on Valc yte, pancytopenia, recent episode of neutropenia which has improved after improvement in renal functi on and adjustment of Valcyte dose and urinary retention with invasive UTI with emphysematous cystitis , on Zosyn to be continued for protracted period of time.
[2017-10-15] MEDS: Sodium Bicarbonate Tab 325 MG TAB PO SCH (23:37)
[2017-10-15] MEDS: Lidocaine Patch Removal TOP SCH (23:47)
[2017-10-16] MEDS ORDERED: Ondansetron ODT 4 MG TAB PO SCH (01:00)
[2017-10-16] MEDS: Piperacillin/Tazobactam 3.375 GM in Sodium Chloride 0.9% 100 ML IVPB SCH ×3 (05:25→21:00)
--- NOTE | 2017-10-16 08:06 | PRG ---
DATE OF SERVICE: 10/16/2017 SUBJECTIVE: No acute complaints. No chills. Daughter at bedside. OBJECTIVE: VITAL SIGNS: 97.7, 72, 97, 147/74. I's and O's 1212 in and 1350 out, two bowel movements. ABDOMEN: Soft. No rigidity, no rebound, no gross suprapubic tenderness on exam. LABORATORY DATA: Hemoglobin 7.7. Renal function 1.3. No new labs today. Previous urine culture E. coli. Blood culture 1 out of 2 gram-negative oswaldo. C. diff toxin. Hemoccult is negative. IMPRESSION AND PLAN: 1. Ms. Burnett is a 72-year-old female with history of recurrent emphysematous cystitis Escherichia coli with blood culture 1 out of 2 positive. 2. History of recent urinary retention, PVR 700-800 mL. 3. History of CMV esophagitis colitis. 4. 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 5. Lupus nephritis, chronic steroids. 6. Chronic renal insufficiency. The patient's acute renal insufficiency has resolved/improved with bladder decompression. Currently on IV Zosyn. Continue indwelling Villanueva IV antibiotics for 4-6 weeks, dispo pending. The patient's daughter relates that per Dr. Phillips told them to considered to be discharged home. From a urologic perspective, patient can be discharged home; however, I do have concerns regarding support as she lives alone. If she is discharged home, I informed the daughter that she will require 24/7 care. She has high risk for fall and significant decondition status that she is unable to get out of bed by herself. Indwelling Villanueva catheter would not preclude her from going home, it is her overall comorbidities that is of concern. Continue present management. She may be discharged to [facility] facility when medically stable. KADEN
[2017-10-16] MEDS: predniSONE 50 MG TAB PO SCH (09:26)
[2017-10-16] MEDS: Nystatin 500,000 UNITS/5 ML UDCUP SSW SCH ×4 (09:27→20:58)
[2017-10-16] MEDS: Calcitriol 0.25 MCG CAP PO SCH (09:28)
[2017-10-16] MEDS: Hydroxychloroquine Sulfate 200 MG TAB PO SCH (09:28)
[2017-10-16] MEDS: Furosemide 20 MG TAB PO SCH (09:28)
[2017-10-16] MEDS: Amlodipine 10 MG TAB PO SCH (09:28)
[2017-10-16] MEDS: Lidocaine 5% Patch TD SCH (09:29)
[2017-10-16] MEDS: Gabapentin 300 MG CAP PO SCH ×2 (09:29→20:58)
[2017-10-16] MEDS: Bisacodyl 10 MG SUPP PR SCH (09:29)
[2017-10-16] MEDS: Saccharomyces boulardii 250 MG CAP PO SCH (09:30)
[2017-10-16] MEDS: Polyethylene Glycol OPTH DROP 15 ML BOT EA EYE SCH (09:30)
[2017-10-16] MEDS: Mycophenolate 250 MG CAP PO SCH ×2 (09:39→20:57)
[2017-10-16] MEDS: Sodium Bicarbonate Tab 325 MG TAB PO SCH ×2 (09:39→20:58)
--- NOTE | 2017-10-16 11:45 | PQF ---
CLINICAL DOCUMENTATION IMPROVEMENT CLARIFICATION FORM: ICD-10 Updated PLEASE DO AN ADDENDUM TO THE PROGRESS NOTE WITH ANY DOCUMENTATION UPDATES OR ADDITIONS AND CARRY THROUGH TO DC SUMMARY. THANK YOU. DATE: 10/16/17 ATTN: Dr. Richard Please exercise your independent, professional judgment in responding to the clarification form. Clinical indicators are provided on the bottom of this form for your review Please check appropriate box(s): BMI <19 with associated diagnosis of: (check one) [ x ] Underweight [ ] Cachexia [ ] Other diagnosis [ ] Unable to determine In addition, please specify: Present on Admission (POA): [ x ] Yes [ ] No [ ] Unable to Determine For continuity of documentation, please document condition throughout progress notes and discharge summary. Thank You. BMI < 19.0 Underweight 19.0 - 24.9 Healthy 25.0 - 29.9 Slightly Overweight 30.0 - 34.9 Obese 35.0 - 39.9 Severely Obese 40.0 and Over Morbidly Obese CLINICAL INDICATORS - SIGNS / SYMPTOMS / LABS CONCEPTOR ASSESSMENT 10/15/2017: NUTRITION DX: UNDERWEIGHT R/T: PREVIOUS COLITIS, MULTIPLE HOSPITAL ADMITS. BMI 18.1 UROLOGY PN 10/13: SEVERELY DECONDITIONED STATUS. RISKS: H&P: RECENTLY ADMITTED TO HOSPITAL & DISCHARGED AFTER HAVING CMV COLITIS. HX OF SLE, CMV COLITIS, HX OF LUPUS NEPHRITIS, CKD 3, RECURRENT UTIs URINARY RETENTION. P.T. ASSESS. 09/14: GAIT: TOO WEAK FOR AMBULATION. TREATMENTS: CONCEPTOR ASSESSMENT TRIGGERED FOR BMI 18.1 INTERVENTION: RD TO MONITOR PO INTAKE & DETERMINE NEED FOR A SUPPLEMENT. Thank you, Ayse (This form is maintained as a part of the permanent medical record) 2015 [employer]. All Rights Reserved Ayse Patel RN, BSN [email or web address] Office: [phone] [facility]
--- NOTE | 2017-10-16 13:07 | PRG ---
DATE OF SERVICE: 10/16/2017 SUBJECTIVE: Patient was seen and examined at bedside and overnight events noted. Patient denies any shortness of breath or chest pain or palpitation. No history of nausea or vomiting or diarrhea or f ever or chills or cramps. OBJECTIVE: GENERAL: This is a well-built female in no apparent distress. VITAL SIGNS: Temperature is 98.7, pulse 70, respiratory rate 18 and blood pressure 147/70. HEENT: Atraumatic, normocephalic. Oral mucosa is moist. NECK: Supple. CARDIOVASCULAR: S1, S2 heard. Rate and rhythm regular. RESPIRATORY: Clear to auscultation. GASTROINTESTINAL: Abdomen is soft. MUSCULOSKELETAL: No tenderness. No edema. DERMATOLOGIC: No skin rash. NEUROLOGIC: Alert and awake and oriented x3. No focal neurologic deficits. Moving all the extremit ies. PSYCHIATRIC: Mood and affect normal. LABORATORY DATA: Not done today. ASSESSMENT AND PLAN: 1. Acute kidney injury on chronic kidney disease. Renal function was stable. No labs today. We wi ll check labs in the morning. 2. Metabolic acidosis, status post bicarbonate infusion and currently on oral bicarbonate. 3. Hypertension. Titrate medications. 4. Hypokalemia, better. 5. History of lupus. 6. Anemia of chronic disease. Check iron levels and we will consider EPO short. I will follow.
[2017-10-16] MEDS: Fluconazole 100 MG TAB PO SCH (17:16)
--- NOTE | 2017-10-16 18:16 | PDOC.PN ---
- Subjective Encounter Start Date: 10/15/17 Encounter Start Time: 18:00 Subjective: f/u for UTI with E. coli, urinary retention and emphysematous cystitis -: with Kerr decompression. Feels weak with some abd pain. Appetite -: slow to improve. Some loose stools. - Objective MAR Reviewed: Yes Vital Signs & Weight: Vital Signs (12 hours) Temp Pulse Pulse Pulse Pulse Resp BP 10/16/17 17:11 98.3 F 94 16 10/16/17 12:15 97.7 F 106 H 16 10/16/17 10:15 113 H 116 H 99 150/74 H 10/16/17 09:28 101 H 10/16/17 09:20 97.5 F L 101 H 16 BP BP BP Pulse Ox 10/16/17 17:11 130/65 4 L 10/16/17 12:15 145/72 H 93 L 10/16/17 10:15 141/73 H 145/69 H 10/16/17 09:28 10/16/17 09:20 147/70 H 96 Weight Admit Weight 89 lb 15.178 oz Weight 89 lb 15.178 oz I&O: 10/15/17 10/16/17 10/17/17 06:59 06:59 06:59 Intake Total 2860 1212 Output Total 2250 1350 Balance 610 -138 Result Diagrams: 10/15/17 11:08 10/15/17 05:49 Additional Labs: Microbiology 10/12/17 13:35 Urine kerr catheter Urine Culture - Preliminary Gram Negative Ariel 10/12/17 13:15 Venous blood - Left Arm Blood Culture - Preliminary Specimen has been received and culture in progress. No Growth to date. 10/12/17 13:15 Picc Line - Pending Blood Culture - Preliminary Specimen has been received and culture in progress. No Growth to date. Laboratory Tests 10/12/17 10/12/17 10/12/17 04:10 13:16 13:16 Hgb 8.9 L Plt Count 125 L Neutrophils % 85.7 H Neutrophils % (Manual) Sodium 133 L Carbon Dioxide 11 L Creatinine 2.21 H 2.33 H Lipase 99 H 10/13/17 10/13/17 05:04 05:04 Hgb 7.4 L Plt Count 103 L Neutrophils % Neutrophils % (Manual) 88 H Sodium Carbon Dioxide 12 L Creatinine 1.91 H Lipase EKG Reviewed by me: Yes (Tele - SR) Phys Exam - Physical Examination frail, alert, smiles HEENT: PERRLA, oral pharynx no lesions Neck: no JVD, supple Respiratory: no wheezing, clear to auscultation bilateral Cardiovascular: RRR mild TTP Gastrointestinal: soft, no distention, positive bowel sounds Musculoskeletal: no edema, pulses present Neurological: normal sensation, moves all 4 limbs Psychiatric: A&O x 3 Skin: normal turgor, cap refill <2 seconds Deviation from normal: Kerr with clear urine Dx/Plan (1) Acute urinary retention Code(s): R33.8 - OTHER RETENTION OF URINE Status: Acute Comment: Kerr placed, likely will need indefinitely, monitor outputs, appreciate Urology assistance, continue Kerr after d/c to rehab (2) Acute worsening of stage 3 chronic kidney disease Code(s): N18.3 - CHRONIC KIDNEY DISEASE, STAGE 3 (MODERATE) Status: Acute Comment: Improved with Kerr drainage, avoid nephrotoxic meds and contrast media (3) Emphysematous cystitis Code(s): N30.80 - OTHER CYSTITIS WITHOUT HEMATURIA Status: Chronic Comment: Continue Zosyn likely 6 weeks, PICC line placed LUE (4) Metabolic acidosis Code(s): E87.2 - ACIDOSIS Status: Chronic Comment: Due to urinary retention and UTI, CKD, improved (5) UTI (urinary tract infection) Status: Acute Comment: >100K e. coli, continue Zosyn based on recent Ucx showing e. coli and enterococcus spp, PICC line placed LUE with plans for Zosyn x 6 weeks (6) Physical deconditioning Code(s): R53.81 - OTHER MALAISE Status: Chronic Comment: PT/OT for mobilization, back to rehab after acute conditions stabilized (7) SLE (systemic lupus erythematosus) Code(s): M32.9 - SYSTEMIC LUPUS ERYTHEMATOSUS, UNSPECIFIED Status: Chronic Qualifiers: Systemic lupus erythematosus type: unspecified Comment: Stable, no acute flare - Plan plan discussed w/ family, continue antibiotics, PT/OT, community mental health social worker, out of bed/ambulate, DVT proph w/SCDs Stable currently -: Check stool cx, C. diff toxin/antigen -: PT for mobilization -: Continue Zosyn for 6 weeks -: Plan for Procrit prior to d/c * AM lab: BRENDA, H/H
--- NOTE | 2017-10-16 18:27 | PDOC.PN ---
- Subjective Encounter Start Date: 10/16/17 Encounter Start Time: 18:05 Subjective: f/u for UTI with E. coli with urinary retention and emphysematous cystitis -: on Zosyn. Still weak but eating much better. Few loose stools. No emesis. -: Stood up at bedside with PT. - Objective MAR Reviewed: Yes Vital Signs & Weight: Vital Signs (12 hours) Temp Pulse Pulse Pulse Pulse Resp BP 10/16/17 17:11 98.3 F 94 16 10/16/17 12:15 97.7 F 106 H 16 10/16/17 10:15 113 H 116 H 99 150/74 H 10/16/17 09:28 101 H 10/16/17 09:20 97.5 F L 101 H 16 BP BP BP Pulse Ox 10/16/17 17:11 130/65 4 L 10/16/17 12:15 145/72 H 93 L 10/16/17 10:15 141/73 H 145/69 H 10/16/17 09:28 10/16/17 09:20 147/70 H 96 Weight Admit Weight 89 lb 15.178 oz Weight 89 lb 15.178 oz I&O: 10/15/17 10/16/17 10/17/17 06:59 06:59 06:59 Intake Total 2860 1212 Output Total 2250 1350 Balance 610 -138 Result Diagrams: 10/15/17 11:08 10/15/17 05:49 Additional Labs: Microbiology 10/15/17 17:50 Stool Stool Occult Blood (ANN) - Final 10/15/17 17:50 Stool Stool Lactoferrin - Final 10/15/17 17:50 Stool C. difficile GDH Antigen & Toxins - Final 10/12/17 13:35 Urine kerr catheter Urine Culture - Preliminary Gram Negative Ariel 10/12/17 13:15 Venous blood - Left Arm Blood Culture - Preliminary Specimen has been received and culture in progress. No Growth to date. 10/12/17 13:15 Picc Line - Pending Blood Culture - Preliminary Specimen has been received and culture in progress. No Growth to date. EKG Reviewed by me: Yes (Tele - SR in 90's) Phys Exam - Physical Examination smiles, frail appearing HEENT: PERRLA, oral pharynx no lesions Neck: no JVD, supple Respiratory: no wheezing, clear to auscultation bilateral Cardiovascular: RRR mild TTP Gastrointestinal: soft, no distention, positive bowel sounds Musculoskeletal: no edema, pulses present Neurological: normal sensation, moves all 4 limbs Psychiatric: A&O x 3 Skin: normal turgor, cap refill <2 seconds Deviation from normal: Kerr with clear urine Dx/Plan (1) Acute urinary retention Code(s): R33.8 - OTHER RETENTION OF URINE Status: Acute Comment: Kerr placed, likely will need indefinitely, monitor outputs, appreciate Urology assistance, continue Kerr after d/c to rehab (2) Acute worsening of stage 3 chronic kidney disease Code(s): N18.3 - CHRONIC KIDNEY DISEASE, STAGE 3 (MODERATE) Status: Acute Comment: Improved with Kerr drainage, avoid nephrotoxic meds and contrast media (3) Emphysematous cystitis Code(s): N30.80 - OTHER CYSTITIS WITHOUT HEMATURIA Status: Chronic Comment: Continue Zosyn likely 6 weeks, PICC line placed LUE (4) Metabolic acidosis Code(s): E87.2 - ACIDOSIS Status: Chronic Comment: Due to urinary retention and UTI, CKD, improved (5) UTI (urinary tract infection) Status: Acute Comment: >100K e. coli, continue Zosyn based on recent Ucx showing e. coli and enterococcus spp, PICC line placed LUE with plans for Zosyn x 6 weeks (6) Physical deconditioning Code(s): R53.81 - OTHER MALAISE Status: Chronic Comment: PT/OT for mobilization, back to rehab after acute conditions stabilized (7) SLE (systemic lupus erythematosus) Code(s): M32.9 - SYSTEMIC LUPUS ERYTHEMATOSUS, UNSPECIFIED Status: Chronic Qualifiers: Systemic lupus erythematosus type: unspecified Comment: Stable, no acute flare (8) Underweight Code(s): R63.6 - UNDERWEIGHT Status: Chronic Comment: Regular diet, consider Ensure for d/c - Plan plan discussed w/ family, continue antibiotics, PT/OT, social group worker, out of bed/ambulate, DVT proph w/SCDs Stable overall -: Continue supportive measures -: Procrit in am -: Continue Zosyn x 6 weeks -: PT for mobilization * AM lab: BMP, CBC * Likely to [facility] 10/17/17
[2017-10-16] MEDS: Lidocaine Patch Removal TOP SCH (21:01)
[2017-10-17] MEDS: Acetaminophen 325 MG TAB PO PRN (03:57)
[2017-10-17] MEDS: Piperacillin/Tazobactam 3.375 GM in Sodium Chloride 0.9% 100 ML IVPB SCH ×2 (05:18→13:16)
[2017-10-17 05:39] LABS: Anion Gap 12 mmol/L (10-20); BUN (Urea Nitrogen) 31 mg/dL (9.8-20.1); Calc. Creatinine Clearance 30 mL/min (70-130); Calcium 8.1 mg/dL (7.8-10.44); Carbon Dioxide 21 mmol/L (23-31); Chloride 110 mmol/L (98-107); Estimated GFR-MDRD 48; Glucose 81 mg/dL (80-115); Potassium 3.5 mmol/L (3.5-5.1); Sodium 139 mmol/L (136-145)
[2017-10-17 05:40] LABS: Iron 60 ug/dL (50-170); Iron Binding Capacity, Total 185 mcg/dL (265-497)
--- NOTE | 2017-10-17 08:05 | PRG ---
DATE OF SERVICE: 10/17/2017 SUBJECTIVE: No new complaints, feeling weak; however, clinically stable. OBJECTIVE: VITAL SIGNS: Stable at 98.6, 104, 18, 95, 145/70. I's and O's 1800 in, 1550 out. Three bowel movements. ABDOMEN: Soft. No rigidity, no rebound. Mild suprapubic tenderness. GENITOURINARY: Villanueva catheter secured with clear dilute urine. LABORATORY DATA: 1. Hemoglobin yesterday was 7.7. This morning, her creatinine has normalized to 1.1, BUN 31. 2. Blood culture 1 out of 2 gram-negative oswaldo, urine culture E. coli, multidrug resistant sensitive to Zosyn. IMPRESSION AND PLAN: 1. Ms. Burnett is a 72-year-old female with history of recurrent emphysematous cystitis with 1 out of 2 blood cultures positive. 2. Recurrent emphysematous cystitis due to suboptimal care of the patient clean intermittent catheterization. 3. History of PVR 700-800 mL. 4. History of CMV esophagitis colitis. 5. Severely deconditioned status. 6. History of left atrophic kidney, secondary to large angiomyolipoma status post embolization. 7. History of lupus nephritis on chronic steroids. 8. Chronic renal insufficiency with normalization of her renal function with indwelling Villanueva catheter. A Villanueva catheter has been replaced on this admission. As the rehab facility, patient was not surveyed adequately for recurrent urinary retention. She will keep an indwelling urethral Villanueva catheter. Moreover, as she presented with recurrent emphysematous cystitis, she will require prolonged drainage of the bladder, as urethral Villanueva catheter will remain in situ for minimum 4-6 weeks until reassessment. She will continue her IV antibiotics during this period. The patient will be discharged to rehabilitation likely today to [facility]. Has followup appointment with me in chart. She will continue her indwelling urethral Villanueva catheter at [facility]. Upon reassessment, we will exchange the Villanueva catheter , plan repeat imaging in few weeks MTDD
[2017-10-17] MEDS: Lidocaine 5% Patch TD SCH (08:48)
[2017-10-17] MEDS: Nystatin 500,000 UNITS/5 ML UDCUP SSW SCH ×2 (08:49→13:16)
[2017-10-17] MEDS: Mycophenolate 250 MG CAP PO SCH (08:49)
[2017-10-17] MEDS: Calcitriol 0.25 MCG CAP PO SCH (08:49)
[2017-10-17] MEDS: predniSONE 50 MG TAB PO SCH (08:49)
[2017-10-17] MEDS: Saccharomyces boulardii 250 MG CAP PO SCH (08:49)
[2017-10-17] MEDS: Sodium Bicarbonate Tab 325 MG TAB PO SCH (08:49)
[2017-10-17] MEDS: Amlodipine 10 MG TAB PO SCH (08:50)
[2017-10-17] MEDS: Gabapentin 300 MG CAP PO SCH (08:50)
[2017-10-17] MEDS: Hydroxychloroquine Sulfate 200 MG TAB PO SCH (08:50)
[2017-10-17] MEDS: Furosemide 20 MG TAB PO SCH (08:51)
[2017-10-17] MEDS: Bisacodyl 10 MG SUPP PR SCH (08:52)
--- NOTE | 2017-10-17 09:21 | PRG ---
Patient Name: VALERY MURCIA Date of service: 10/17/2017 Subjective: Patient was seen and examined at bedside and overnight events noted. Patient denies any shortness of breath or chest pain or palpitation. No history of nausea or vomiting or diarrhea or fever or chills or cramps. Objective: General: This is a well-built female in no apparent distress. Vital signs: Temperature 98.4, pulse 97, respiratory 16, blood pressure 143/66. HEENT: Atraumatic, normocephalic. Oral mucosa is moist. Neck: Supple. Cardiovascular: S1 S2 heard. Rate and rhythm regular. Respiratory: Clear to auscultation. Gastrointestinal: Abdomen is soft. Musculoskeletal: No tenderness. No edema. Dermatologic: No skin rash. Neurologic: Alert and awake and oriented X3. No focal neurologic deficits. Moving all the extremit ies. Psychiatric: Mood and affect normal. LABORATORY DATA: Potassium 3.5, BUN 31, creatinine is 1.1, bicarbonate is 21. ASSESSMENT AND PLAN: 1. Acute kidney injury on chronic kidney disease stage 3 with improvement in renal function. Avoid nephrotoxins. 2. Metabolic acidosis. Continue on bicarbonate orally. 3. Hypertension. 4. Hypokalemia, replace and monitor. 5. History of lupus and monitor renal function. I will sign off. Please call back with any questions. Continue bicarbonate. Follow with Dr. Trudy sousa 1-2 weeks after discharge.
[2017-10-17] MEDS ORDERED: Epoetin (NON-ESRD) 20,000 UNITS/ML ML SC SCH (10:00)
[2017-10-17] MEDS ORDERED: Epoetin (ESRD) 20,000 UNITS/ML SC SCH (10:00)
--- NOTE | 2017-10-17 13:03 | DIS ---
DATE OF ADMISSION: 10/12/2017 DATE OF DISCHARGE: 10/17/2017 DISCHARGE DIAGNOSES: 1. Acute urinary retention, status post Villanueva catheter placement, resolved. 2. Acute kidney injury on chronic kidney disease stage 3, resolved. 3. Emphysematous cystitis. 4. Metabolic acidosis, improved. 5. Urinary tract infection with Escherichia coli. 6. Severe physical deconditioning. 7. Systemic lupus with nephritis. 8. Underweight, chronic. 9. Chronic normocytic anemia secondary to chronic kidney disease. 10. Thrombocytopenia, chronic. CONSULTATIONS: Dr. Phillips with Infectious Disease Service. Dr. Gene Avilez with Urology Service. Dr. Roberts with Nephrology Service. PERTINENT LABORATORY AND X-RAY FINDINGS: Potassium ranged between 3.0-4.1. CO2 ranged between 12-22 , creatinine ranged between 1.13-2.33 with estimated GFR ranging between 21-48. Magnesium level 1.1, serum iron 60, TIBC 185, percent saturation 32, ferritin 406, albumin 3.0, lipase 99. CBC showed a white blood cell count ranging between 3.4-8.3, hemoglobin ranged between 6.9-8.9, platelet count ran ged between 65-125. Blood cultures x2 showed one out of two positive on 10/12/2017 with gram-negativ e rods. Urine culture dated 10/12/2017 showed greater than 100,000 colonies of E. coli. C. difficil e antigen and toxin negative on 10/15/2017. Stool lactoferrin on 10/15/2017 positive. Stool Hemoccu lt on 10/15/[address] of the abdomen and pelvis dated 10/12/2017 showed severe pneumatosis o f the urinary bladder with large volume of intraluminal air and distended urinary bladder. Evidence for emphysematous cystitis. Moderate right-sided obstructive uropathy with moderate right hydronephr osis. HOSPITAL COURSE: The patient was initially admitted after presenting with increasing abdominal pain after a recent admission for CMV colitis and discharged to acute inpatient rehabilitation. The patie nt subsequently had discontinuation of her Villanueva catheter progressing with lower quadrant abdominal p ain, epigastric and suprapubic area pain. CT imaging of the abdomen and pelvis was performed showing evidence of distended urinary bladder with severe emphysematous cystitis. The patient underwent Fol ey catheter insertion with decompression of the bladder. The patient was followed by the Urology Ser vice throughout the hospital course with current recommendations to continue Villanueva catheter indefinit yumiko. Urine culture was positive for greater than 100,000 colonies of E. coli at which point sensitiv ities showed sensitivity to Zosyn. The patient continued on Zosyn throughout the hospital course wit h current recommendations to complete a 6-week course of antibiotic therapy. The patient continued t o receive Zosyn throughout the hospital course through PICC line and was followed by the Infectious D isease Service with current recommendations for antibiotic coverage and length of treatment course. The patient was noted with multiple metabolic derangements secondarily to urinary tract infection, de hydration and acute kidney injury, improving with IV fluid hydration, as well as sodium bicarbonate i nfusion. The patient's overall renal function had improved with supportive measures and eliminating nephrotoxic agents. The patient also had improvement in renal function due to decompression of the b ladder with Villanueva catheter drainage. Urine was noted clear in the Villanueva bag by the time of discharge . The patient was with monitored with serial hemoglobins and received Procrit 20,000 units x1 dose p rior to discharge. The patient did exhibit loose stools and diarrhea; however, stool cultures and C. difficile antigen and toxin have been negative to date. Suspected antibiotic induced diarrhea treat ed symptomatically and supportively. The patient was evaluated by the physical and occupational therapist assistant apy due to severe deconditioning and was able to stand at the bedside with contact guard assistance p rior to discharge. The patient had improved and overall appetite and energy level by the time of dis charge; however, due to deconditioning and comorbid status, the patient was deemed an appropriate can didate for ongoing acute inpatient rehabilitation under supervised medical care. On day of discharge , I have examined the patient and discussed lab findings, disposition planning as well as discharge p marce and coordination of transfer to inpatient rehabilitation with the patient. The patient verbalize s understanding and agreement. The patient overall clinically stable and ready for discharge to [facility] on 10/17/2017. DISCHARGE MEDICATIONS: 1. Acetaminophen 650 mg p.o. q.4-6 hours p.r.n. 2. Dulcolax 10 mg per rectum daily. 3. Calcitriol 0.25 mcg p.o. daily. 4. Calcium carbonate 500 mg p.o. q.i.d. p.r.n. 5. Vitamin D3 5000 units p.o. daily. 6. Clonidine 0.1 mg p.o. every 6 hours p.r.n. 7. Aranesp 60 mcg subcutaneously q.7 days. 8. Diflucan 100 mg p.o. daily. 9. Lasix 20 mg p.o. daily. 10. Neurontin 300 mg p.o. b.i.d. 11. Plaquenil 300 mg p.o. daily. 12. Lactulose 20 grams p.o. t.i.d. p.r.n. 13. Lidocaine patch 1 patch transdermally daily with removal daily. 14. Imodium 2 mg as needed for diarrhea. 15. CellCept 1000 mg p.o. b.i.d. 16. Nystatin suspension 2 mL swish and swallow q.i.d. 17. Zofran 4 mg p.o. q.6 hours p.r.n. 18. Protonix 40 mg p.o. b.i.d. 19. Azo standard 97.5 mg p.o. b.i.d. 20. Zosyn 3.375 grams IV q.8 hours until 11/22/2017. 21. Prednisone 25 mg p.o. q.a.m. 22. Florastor 250 mg p.o. daily. 23. Senna 8.6 mg p.o. daily p.r.n. 24. Sodium bicarbonate 650 mg p.o. b.i.d. 25. Tramadol 50 mg p.o. q.6 hours p.r.n. 26. Valcyte 450 mg p.o. q.48 hours. FOLLOWUP: The patient to follow up with Dr. Sergio Sen after discharge from [facility]. The patient will follow up with Dr. Luly Hernandez on 11/11/2017 at 10:45 a.m. The patient will follow up with Dr. Eriberto Yates with Nephrology Service in 2 weeks after discharge. CONDITION ON DISCHARGE: Fair. ACTIVITY: Rolling walker with contact guard assistance. DIET: Regular. SPECIAL INSTRUCTIONS: Recommend weekly basic metabolic profile and CBC. Continue Villanueva catheter dra amor and do not remove Villanueva catheter until follow up with Urology service. CODE STATUS: FULL. DISPOSITION: Discharged to [facility] on 10/17/2017. Total time preparing in coordinating discharge is 45 minutes.
[2017-10-17 14:20] LABS: CMV log 10 Quant 2.367 (.)
[2017-10-17 15:41] VITALS: BP 130/62; TEMP 98.2
== END 2017-10-17 15:41 | DRG 683 ==
LOC: ERS 11:33 → ERHOLD 14:38 → 2NO 18:05
PROVIDERS: ADMIT Internal Medicine; ATTEND Internal Medicine
DX: N17.9 Acute kidney failure, unspecified (principal); E87.2 Acidosis; D69.6 Thrombocytopenia, unspecified; E88.09 Other disorders of plasma-protein metabolism, not elsewhere classified; K52.1 Toxic gastroenteritis and colitis; E87.1 Hypo-osmolality and hyponatremia; Z68.1 Body mass index [BMI] 19.9 or less, adult; N30.80 Other cystitis without hematuria; M32.14 Glomerular disease in systemic lupus erythematosus; N18.3 Chronic kidney disease, stage 3 (moderate); N13.30 Unspecified hydronephrosis; D63.1 Anemia in chronic kidney disease; I12.9 Hypertensive chronic kidney disease with stage 1 through stage 4 chronic kidney disease, or unspecified chronic kidney disease; R63.6 Underweight; E78.5 Hyperlipidemia, unspecified; E87.6 Hypokalemia; R33.9 Retention of urine, unspecified; E86.0 Dehydration; N31.9 Neuromuscular dysfunction of bladder, unspecified; B96.20 Unspecified Escherichia coli [E. coli] as the cause of diseases classified elsewhere; Z88.2 Allergy status to sulfonamides; Z88.8 Allergy status to other drugs, medicaments and biological substances; Z79.52 Long term (current) use of systemic steroids; Z79.899 Other long term (current) drug therapy; T36.0X5A Adverse effect of penicillins, initial encounter; Y92.239 Unspecified place in hospital as the place of occurrence of the external cause
CPT/HCPCS: 36415; 51702; 74176; 80048; 81003; 81015; 82274; 82728; 83540; 83550; 83630; 83690; 83735; 85025; 87040; 87077; 87086; 87149; 87186; 87324; 87449; 87497; 96361; 96365; 96375; A4216; G8978-GP-CN; G8979-GP-CL; J0885; J2405; J2543; J7050; J7070; J7517; J8499; Q0162; Q4081

== ENCOUNTER 2017-11-18 13:07 | Outpatient (CLI) | payer MEDICARE, OTHER | END 2017-11-18 13:08 | disposition home or self-care (01) | LOC: BICCT 13:07 | PROVIDERS: ATTEND Urology | DX: N30.80 Other cystitis without hematuria (principal); D30.02 Benign neoplasm of left kidney; N28.89 Other specified disorders of kidney and ureter; K57.30 Diverticulosis of large intestine without perforation or abscess without bleeding; Z90.81 Acquired absence of spleen; Z90.710 Acquired absence of both cervix and uterus | CPT/HCPCS: 74176 ==

== ENCOUNTER 2017-11-30 14:18 | Inpatient (IN) | payer MEDICARE, OTHER ==
[2017-11-30] MEDS ORDERED: Nitroglycerin 0.4 MG TAB (25 Tab Bottle) ONE (14:48)
[2017-11-30 15:41] LABS: Hemoglobin 10.9 g/dL (12.0-16.0); Mean Corpuscular HGB CONC 32.1 g/dL (32.0-36.0); Mean Corpuscular Hemoglobin 32.2 pg (27.0-31.0); Platelet Count 175 thou/uL (130-400); RBC Distribution Width 18.9 % (11.5-14.5); Red Blood Cell (RBC) Count 3.38 mill/uL (4.20-5.40); Troponin I 0.022 ng/mL (< 0.028); White Blood Cell (WBC) Count 1.8 thou/uL (4.8-10.8)
[2017-11-30 15:42] LABS: ALT (SGPT) 9 U/L (8-55); AST (SGOT) 9 U/L (5-34); Albumin 3.7 g/dL (3.4-4.8); Alkaline Phosphatase 155 U/L (40-150); Anion Gap 22 mmol/L (10-20); BUN (Urea Nitrogen) 90 mg/dL (9.8-20.1); Bilirubin, Total 0.4 mg/dL (0.2-1.2); CK (CPK) 39 U/L (29-168); Calc. Creatinine Clearance 0 mL/min (70-130); Calcium 8.5 mg/dL (7.8-10.44); Chloride 106 mmol/L (98-107); Estimated GFR-MDRD 19; Globulin 1.9 g/dL (2.4-3.5); Glucose 73 mg/dL (80-115); Protein, Total 5.6 g/dL (6.0-8.3); Sodium 131 mmol/L (136-145)
[2017-11-30 15:47] LABS: Acanthocytes SLIGHT = 1-5 cells (100X) (None Seen); Anisocytosis SLIGHT = 6-15 cells (100X) (0-5/hpf); Band 17 % (5-11); Burr Cells SLIGHT = 2-5 cells (100X) (0-1/hpf); Dohle Bodies SLIGHT; Howell Jolly Bodies SLIGHT = 1-2 cells (100X) (None Seen); Large Platelets SLIGHT; Lymphocytes 12 % (21-51); MDiff Complete? YES; Macrocytosis SLIGHT = 6-15 cells (100X) (0-5/hpf); Monocytes 8 % (0-10); Neutrophil 62 % (42-75); Nucleated RBC 7 % (0); Ovalocytes SLIGHT = 2-5 cells (100X) (0-1/hpf); PLT Morphology Comment Appears Adequate; Pappenheimer Bodies SLIGHT = 1-2 cells (100X) (None Seen); Polychromasia MODERATE = 3-4 cells (100X) (0-2/hpf); Reactive Lymphocytes 1 % (0-10); Schistocytes MODERATE= 6-15 cells (100X) (0-1/hpf); Spherocytes SLIGHT = 1-5 cells (100X) (None Seen); Tear Drops SLIGHT = 2-5 cells (100X) (0-1/hpf); Toxic Granulation SLIGHT
[2017-11-30 15:50] LABS: Carbon Dioxide 9 mmol/L (23-31)
[2017-11-30 15:51] LABS: CKMB 7.6 ng/mL (0-6.6)
--- NOTE | 2017-11-30 16:21 | RAD ---
PORTABLE CHEST: Date: 11/30/17 HISTORY: Chest pain. COMPARISON: 09/19/17. FINDINGS: Heart size is within normal limits. There are atherosclerotic changes of the aorta. Lungs are clear o f any infiltrates. Old right rib fractures are seen. The bones are demineralized. IMPRESSION: No active intrathoracic disease. POS: [facility]
[2017-11-30] MEDS ORDERED: Dextrose 50% Abboject 50 ML SYRINGE ONE (17:19)
[2017-11-30] MEDS ORDERED: Insulin Regular 300 UNITS/3 ML VIAL ONE ×2 (17:20→17:22)
[2017-11-30] MEDS ORDERED: Sodium Bicarb 50 MEQ/50 ML Abboject 8.4% SYRINGE ONE (17:20)
[2017-11-30] MEDS ORDERED: Simethicone Chewable 80 MG TAB PO PRN (17:51)
[2017-11-30] MEDS ORDERED: cloNIDine 0.1 MG TAB PO PRN (17:51)
[2017-11-30] MEDS ORDERED: Calcium Carbonate 500 MG ChewTAB PO PRN (17:51)
[2017-11-30] MEDS ORDERED: Lidocaine Patch Removal 1 EACH TOP SCH ×2 (18:15→21:00)
[2017-11-30 18:44] LABS: Troponin I 0.024 ng/mL (< 0.028)
--- NOTE | 2017-11-30 18:49 | HP ---
DATE OF ADMISSION: 11/30/2017 CHIEF COMPLAINT: Chest pain. HISTORY OF PRESENT ILLNESS: This is a 72-year-old white female who has been recently admitted to the hospital multiple times for urinary tract infection and has been sent to the rehab and recently been at home for the last 20 days and she has been living at an independent facility, was in her usual [facility], was having some dehydration symptoms and weakness. She noticed that she was having so me palpitations since yesterday and today, her chest pain had gotten worse which was more on the righ t side of her precordium, associated with nausea and dizziness. She immediately called the EMS and w hen the patient was taken to the ER, she was pretty tachycardic with a heart rate of 107 and had regu lar lab work which showed a potassium of 6.0 with worsening creatinine of 2.5. Patient was recently told by Dr. Yates, who is her java flex developer to stop the potassium, but patient seemed to be taking some canned food which had some amount of potassium. The patient remained tachycardic on examination and was complaining of ongoing palpitations and chest pain. She denied having any nausea at this time. She continues to have some dizziness. I had a long discussion about the code status and she did men tion that she would like to go for a FULL CODE at this time. PAST MEDICAL HISTORY: 1. Systemic lupus erythematosus CMV colitis, history of lupus nephritis. 2. History of chronic kidney disease stage 3, history of recurrent UTIs, history of urinary retentio n, history of adrenal insufficiency, history of splenectomy and renal insufficiency. PAST SURGICAL HISTORY: History of splenectomy, history of left lung mass, history of history of nasir l artery embolization. FAMILY HISTORY: Positive for breast cancer, hypertension, and diabetes mellitus. SOCIAL HISTORY: The patient denies smoking or alcohol. She lives independently at this time at an [facility] living. ALLERGIES: SULFA allergy. MEDICATIONS: 1. Calcitriol. 2. Calcium carbonate 500 mg p.o. daily. 3. Clonidine. 4. Fluconazole. 5. Lasix 20 mg p.o. daily. 6. Gabapentin 300 mg p.o. b.i.d. 7. Hydroxychloroquine. 8. Lactulose. 9. Lidocaine patch. 10. Loperamide. 11. Nystatin. 12. Pantoprazole. 13. Prednisone. 14. Simethicone. 15. Sodium bicarbonate. 16. Valganciclovir. REVIEW OF SYSTEMS: All 12 systems are reviewed with the patient thoroughly and found to be negative at this time. System reviewed are HEENT, CVS, STREET CLEANER, respiratory, GI, , musculoskeletal, skin and in tegumentary, psychiatric. PHYSICAL EXAMINATION: VITAL SIGNS: Blood pressures are 120/69, heart rate is 110, respiratory rate of 18, saturation is 98 % on 2 liters. GENERAL: The patient is moderately built and moderately nourished. She does not appear to be in acu te distress at this time. She is alert, oriented x3. HEENT: Atraumatic, normocephalic, PERRLA. Extraocular movements were intact. Oral mucosa pink and moist. CARDIOVASCULAR: S1, S2 normal. Tachycardia. No murmurs, rubs or gallops. LUNGS: Bilateral air entry was equal. No wheezing, no crackles. ABDOMEN: Soft, nontender. No guarding or rebound tenderness. Bowel sounds normal. MUSCULOSKELETAL: No calf tenderness. No pedal edema. No joint tenderness, no joint swelling. SKIN: The patient has multiple bruises all over the chest and on all of the extremities are likely f rom steroid use. STREET CLEANER: Cranial nerves II-XII intact. No focal deficits were noted. PSYCHIATRIC: No signs of suicidal ideation. No signs of aurora was noted. LABORATORY DATA: WBC 1.8, hemoglobin is 10.9, hematocrit is 33.9, platelets are 175. Sodium is 131, potassium is 6.0, chloride is 106, bicarbonate is 9, BUN 92, creatinine is 2.52. Alkaline phosphata se 155, CK-MB 7.6, troponin 0.02. BNP was 99. ASSESSMENT AND PLAN: 1. Acute hyperkalemia. 2. Acute kidney injury on chronic kidney disease stage 4. 3. Acute hyponatremia. 4. Acute chest pain, rule out myocardial infarction. 5. Leukopenia. PLAN: 1. Plan is to closely monitor this patient at this time and we will admit the patient to the ICU and will consult the Nephrology. Patient has been given albuterol nebulizer treatments in the ER. I ad vised the ER physician to start the patient on Kayexalate and also D50 of 10 units and regular insuli n with D50 to push the potassium back into the cells. If the patient does not respond, she needs gala rgent dialysis as the patient has EKG changes. 2. Patient has chronic kidney disease which has been worsening. Her BUN is 90. We will have the Ne phrology address this at this time, the patient might need a D5 normal saline or bicarbonate drip. Ivy taylor is on sodium bicarbonate at home. We will continue with these medications. 3. Patient has history of lupus, has evidence of leukopenia at this time. She is high risk for infe ctions. Chest x-ray was unremarkable. We will repeat the UA again, patient has elevated bandemia of 17, but no source of infection was noted at this time. I will continue the patient on steroids. Stefany hsu is on 40 mg of prednisone. 4. Patient has history of recurrent UTIs and no UA was done. We will order a UA at this time. 5. patient has hyponatremia likely from dehydration. We will closely monitor and will start the pat ient on normal saline to address this issue. 6. Deep venous thrombosis prophylaxis. At this time, we will start the patient on heparin 5000 subQ b.i.d. I spent 75 minutes with this patient of this one hour as critical care time.
[2017-11-30] MEDS ORDERED: Sodium Bicarbonate 150 MEQ in Dextrose 5% in Water 1,000 ML IV SCH (19:00)
[2017-11-30] MEDS ORDERED: Ondansetron HCl/PF 4 MG/2 ML Vial IVP PRN (19:40)
[2017-11-30] MEDS ORDERED: Ondansetron ODT 4 MG TAB PO PRN (19:41)
[2017-11-30] MEDS ORDERED: Acetaminophen 325 MG TAB PO PRN (19:41)
[2017-11-30] MEDS ORDERED: Nitroglycerin 0.4 MG TAB (25 Tab Bottle) PO PRN (19:46)
[2017-11-30] MEDS ORDERED: HYDROcodone/Acetaminophen 5/325 mg Tablet PO PRN (19:46)
[2017-11-30] MEDS ORDERED: Enoxaparin Sodium 40 MG/0.4 ML SYRINGE SC SCH (20:00)
[2017-11-30 20:52] LABS: Anion Gap 19 mmol/L (10-20); BUN (Urea Nitrogen) 89 mg/dL (9.8-20.1); Calc. Creatinine Clearance 14 mL/min (70-130); Calcium 8.1 mg/dL (7.8-10.44); Carbon Dioxide 12 mmol/L (23-31); Chloride 108 mmol/L (98-107); Estimated GFR-MDRD 19; Glucose 114 mg/dL (80-115); Potassium 4.2 mmol/L (3.5-5.1); Sodium 135 mmol/L (136-145)
[2017-11-30] MEDS ORDERED: NYSTATIN SSW SCH (21:00)
[2017-11-30] MEDS: Famotidine 20 MG TAB PO SCH (21:26)
[2017-11-30] MEDS: Nitroglycerin 2% Ointment 1 INCH/1 GM Packet TOP SCH (21:26)
[2017-11-30] MEDS: Carvedilol 3.125 MG TAB PO SCH (21:26)
[2017-11-30] MEDS: Sodium Bicarbonate Tab 325 MG TAB PO SCH (21:26)
[2017-11-30] MEDS: Fluconazole 100 MG TAB PO SCH (21:26)
[2017-11-30] MEDS: Gabapentin 300 MG CAP PO SCH (21:26)
[2017-11-30] MEDS: Nystatin 500,000 UNITS/5 ML UDCUP SSW SCH (21:27)
[2017-11-30] MEDS: Dextrose 5 %-0.45 % NaCl 1,000 ML IV SCH (21:27)
[2017-11-30 22:06] LABS: Troponin I 0.014 ng/mL (< 0.028)
[2017-12-01 00:24] LABS: Bilirubin Negative (Negative); Blood, Urine Negative (Negative); Clarity CLOUDY (Clear); Glucose, Urine (Dipstick) Negative (Negative); Leukocyte Trace (Negative); Nitrite Negative (Negative); Protein, Urine (Dipstick) Trace mg/dL (Neg-Trace); Specific Gravity, Urine 1.015 (1.002-1.036); Urobilinogen 0.2 mg/dL (0.2-1.0)
[2017-12-01 00:27] LABS: Bacteria/HPF 4+ HPF (None Seen); Hyaline Casts/LPF 7-10 HYALINE CAST LPF (0-3 Hyaline); Pathc Cast-AUWi Flag 0.29 (0-2.49); RBC/HPF 0-3 HPF (0-3); Squamous Epithelial 0-3 HPF (0-3); WBC/HPF 0-3 HPF (0-3)
[2017-12-01 00:29] LABS: Oval Fat Bodies/HPF None Seen HPF (None Seen); Renal Epithelial None Seen HPF (0-3); Sperm/HPF None Seen HPF (None Seen); Transitional Epithelial NONE SEEN HPF (0-3); Trichomonas/HPF None Seen HPF (None Seen); Yeast-All Forms None Seen HPF (None Seen)
[2017-12-01 04:33] LABS: Anion Gap 17 mmol/L (10-20); BUN (Urea Nitrogen) 78 mg/dL (9.8-20.1); Calc. Creatinine Clearance 17 mL/min (70-130); Calcium 7.6 mg/dL (7.8-10.44); Carbon Dioxide 15 mmol/L (23-31); Cardiac Risk 6.4 (Less than 4.5); Chloride 107 mmol/L (98-107); Cholesterol 276 mg/dl (< 200 Desired); Estimated GFR-MDRD 23; Glucose 127 mg/dL (80-115); HDL Cholesterol 43 mg/dL (>60 Neg Risk); LDL Cholesterol, Calculated 200 mg/dL; Potassium 3.7 mmol/L (3.5-5.1); Sodium 135 mmol/L (136-145); Triglycerides 165 mg/dL (Less than 150)
[2017-12-01 04:47] LABS: Acanthocytes SLIGHT = 1-5 cells (100X) (None Seen); Band 10 % (5-11); Burr Cells SLIGHT = 2-5 cells (100X) (0-1/hpf); Eosinophils 2 % (0-10); Hemoglobin 9.7 g/dL (12.0-16.0); Lymphocytes 16 % (21-51); MDiff Complete? YES; Mean Corpuscular HGB CONC 31.6 g/dL (32.0-36.0); Mean Corpuscular Hemoglobin 31.5 pg (27.0-31.0); Mean Corpuscular Volume 99.9 fl (81.0-99.0); Mean Platelet Volume 9.7 fL (7.4-10.4); Monocytes 28 % (0-10); Neutrophil 44 % (42-75); Nucleated RBC 9 % (0); PLT Morphology Comment Appears Adequate; Platelet Count 141 thou/uL (130-400); RBC Distribution Width 19.1 % (11.5-14.5); Red Blood Cell (RBC) Count 3.09 mill/uL (4.20-5.40); Schistocytes MODERATE= 6-15 cells (100X) (0-1/hpf); White Blood Cell (WBC) Count 0.9 thou/uL (4.8-10.8)
[2017-12-01] MEDS: Dextrose 5 %-0.45 % NaCl 1,000 ML IV SCH ×2 (05:55→14:56)
[2017-12-01] MEDS: Nitroglycerin 2% Ointment 1 INCH/1 GM Packet TOP SCH ×3 (05:55→21:09)
[2017-12-01] MEDS: Acetaminophen 325 MG TAB PO PRN (06:19)
--- NOTE | 2017-12-01 08:04 | CON ---
DATE OF CONSULTATION: 12/01/2017 HISTORY OF PRESENT ILLNESS HOSPITAL COURSE: Ms. Burnett is a 72-year-old female well known to me. She was recently admitted due to recurrence of severe emphysematous cystitis. The patient has history of chronic renal insufficiency secondary to history of left renal angiomyolipoma status post embolization, multiple, most recent was at [facility]. She was admitted a few months ago with CMV, colitis, esophagitis, emphysematous cystitis with acute urinary retention with 800 mL. She was advised regarding CIC due to retention, UTI. She went to rehab; however, CIC was not performed and she returned due to worsening emphysematous cystitis. I saw the patient in my office on 11/26/[address] with a [address] up [address] demonstrating resolution of emphysematous cystitis. As we do not know her voiding status, severely deconditioned status, I informed them to perform CICs and monitor her voiding status. She is currently admitted under the medical service due to acute hyperkalemia, hyponatremia, chest pain and severe leukopenia. She is in the ICU setting, CIC 4 times a day being performed by ICU. Last CIC was 200 mL. PAST MEDICAL HISTORY: Lupus, arthritis, osteoporosis, left angiomyolipoma status post embolization at [facility], history of ITP, chronic renal insufficiency, history of CMV esophagitis, colitis, renal insufficiency, emphysematous cystitis with urinary retention, first in 08/2017. SURGICAL HISTORY: Spleen removal, total abdominal hysterectomy, left renal mass biopsy negative for malignancy, embolization of the left angiomyolipoma multiple, most recent was 11/2013, prior cystoscopy, bladder wash 12/07/2015. DISCHARGE MEDICATIONS: Aspirin, Tylenol, Tums, Coreg, Catapres, Diflucan, Neurontin, Plaquenil, lactulose, Nitrostat, Mycostatin, Zofran, Protonix, prednisone, micron, bicarbonate, Valacyclovir. ALLERGIES: SULFA. PHYSICAL EXAMINATION: VITAL SIGNS: Her vital signs are stable. She is afebrile. She is on CIC 500 mL of urine out. GENERAL: The patient is severely deconditioned, frail. ENT: Grossly unremarkable. HEART: Regular rate. LUNGS: Clear. ABDOMEN: Soft, nontender. No suprapubic tenderness. : Exam demonstrates severely atrophic vaginitis. EXTREMITIES: No cyanosis, clubbing or edema. LABORATORY: White count is 0.9, hemoglobin 9, platelet 141, creatinine is 2.5 on admission, currently 2.1. Her baseline creatinine is variable from 1.4 to 2.2. IMPRESSION AND PLAN: 1. Ms. Burnett is a 72-year-old female with history of solitary right kidney due to a left atrophic kidney, status post embolization of large angiomyolipoma. 2. History of recurrent urinary tract infection. 3. Recent admission August/September due to emphysematous cystitis with urinary retention, currently on CICs as CT follow up demonstrates resolution. Her urinalysis was reviewed demonstrating component of bacteriuria. I typically would not treat a patient with bacteriuria on CIC; however, given her severely immunocompromised state, it would be prudent to provide antibiotic therapy. Based on her prior urine culture, Zosyn would be indicated. Consideration for Infectious Disease consult if decompensation. We will follow along with you on this admission. Nursing staff provided CIC instructions, monitoring of residual amount. KADEN
[2017-12-01] MEDS ORDERED: Hydroxychloroquine Sulfate 200 MG TAB PO SCH (09:00)
[2017-12-01] MEDS: Gabapentin 300 MG CAP PO SCH ×2 (09:33→21:08)
[2017-12-01] MEDS: Saccharomyces boulardii 250 MG CAP PO SCH (09:34)
[2017-12-01] MEDS: predniSONE 50 MG TAB PO SCH (09:35)
[2017-12-01] MEDS: Hydroxychloroquine Sulfate 200 MG TAB PO SCH (09:36)
[2017-12-01] MEDS: Piperacillin/Tazobactam 2.25 GM in Sodium Chloride 0.9% 100 ML IVPB SCH ×2 (09:38→17:55)
--- NOTE | 2017-12-01 09:55 | PRG ---
DATE OF SERVICE: 12/01/2017 SUBJECTIVE: A 72-year-old female being seen for acute kidney injury. The patient denies any nausea, vomiting, or chest pain. PHYSICAL EXAMINATION: GENERAL: Patient is awake and alert. VITAL SIGNS: Afebrile, pulse 94, breathing 16, and blood pressure 102/57. GENERAL APPEARANCE AND MENTAL STATUS: Fair. HEAD/NECK: Normocephalic. Atraumatic. EYES: EOMI. No deformity. EARS: Clear. No ulcers. NOSE: Intact. No lesions. MOUTH: Clear. No discharge. THROAT: Clear. No exudate. LUNGS: Clear. No crackles. CARDIAC: S1, S2. No rub. ABDOMEN: Benign. BS+. GENITALIA/RECTUM: Villanueva absent. BACK/EXTREMITIES: Edema 0+ Ulcer- NEUROLOGICAL: Alert and motor intact. SKIN: Rash- Bruise- LABORATORY DATA: Hemoglobin 9.7, potassium is 4.2, bicarbonate 12. ASSESSMENT: 1. Acute kidney injury, improved. 2. Hyperkalemia, improved. 3. Metabolic acidosis, improved. No indication for dialysis. We will follow renal function closely. 4. CKD stage IV MTDD
[2017-12-01] MEDS: Aspirin 325 MG TAB PO SCH (10:15)
[2017-12-01] MEDS: Calcitriol 0.25 MCG CAP PO SCH (10:16)
[2017-12-01] MEDS: Carvedilol 3.125 MG TAB PO SCH ×2 (10:17→21:09)
[2017-12-01] MEDS: Sodium Bicarbonate Tab 325 MG TAB PO SCH ×2 (10:18→21:08)
[2017-12-01] MEDS: Lidocaine 5% Patch TD SCH (10:20)
[2017-12-01] MEDS: Nystatin 500,000 UNITS/5 ML UDCUP SSW SCH ×4 (10:58→21:09)
--- NOTE | 2017-12-01 11:48 | CON ---
DATE OF CONSULTATION: 12/01/2017 SERVICE: Pulmonary Medicine. INTERVAL HISTORY: The patient was doing well after being discharged from the hospital last time around. [place] [facility]. She was getting PT and OT once daily. She was getting stronger and ultimately was discharged from that facility 28 days ago. She went home and slowly started becoming weaker and weaker. Last week, she went to see her booster pump operator. From there, it was just simply downhill. She was brought back to the Emergency Department because of some chest discomfort. This occurs whenever she eats. She has a heaviness in her chest. She ruled out for NC overnight. She denies any current fevers, chills, nausea or vomiting. She underwent a catheterization of the bladder. This has to be done every 6 hours. There were some bacteria in it, so she was empirically covered for infectious organisms. She currently has no complaints of nausea, vomiting, diarrhea or difficulty breathing. PAST MEDICAL HISTORY: 1. Systemic lupus erythematosus. 2. Chronic kidney disease, stage 3. 3. Chronic anemia. 4. CMV colitis and esophagitis, recent. 5. Urinary retention. 6. Angiomyolipoma of the kidneys. 7. History of ITP. 8. Adrenal insufficiency. 9. Osteoarthritis. PAST SURGICAL HISTORY: 1. Splenectomy. 2. Hysterectomy. 3. Left renal mass biopsy. 4. Renal artery embolization in [place]. 5. Cystoscopy. 6. Bladder washout. 7. Recent EGD and colonoscopy. SOCIAL HISTORY: Negative for alcohol, tobacco or illicit drug use. FAMILY HISTORY: Noncontributory. ALLERGIES: IRON, SULFONAMIDES. MEDICATIONS: List of her inpatient medications were reviewed. No updates were made. REVIEW OF SYSTEMS: General, head, ears, eyes, nose, throat, cardiovascular, respiratory, GI, , musculoskeletal, neurologic and skin is negative except as mentioned in the HPI. PHYSICAL EXAMINATION: VITAL SIGNS: Afebrile, pulse 86, respirations 15, saturation 98% on room air. GENERAL: The patient is awake and alert, no apparent distress. LUNGS: Excellent air entry with no prolonged expiratory phase, wheezing, rhonchi, or crackles present. HEART: Normal rate, regular. ABDOMEN: Soft, nontender, nondistended. Bowel sounds are positive. MUSCULOSKELETAL: No cyanosis or clubbing. There is no pitting in the bilateral lower extremities. NEUROLOGIC: Grossly nonfocal. LABORATORY DATA: WBC 0.9, hemoglobin 9.7, platelets 141,000. Lymphocyte count is 16%, monocytes are 28%. Creatinine 2.12 and gently down trending, BUN 78. Basic metabolic profile is otherwise unremarkable. Liver function studies are completely unremarkable. CK is low. Troponin is negative x3. Urinalysis demonstrates multiple bacteria, but there does not appear to be any white blood cells present. Most recently, CMV PCR was positive. Recent Clostridium difficile antigen and toxin were unremarkable. IMAGING: Chest x-ray demonstrates no acute cardiopulmonary abnormality. ASSESSMENT: 1. Severe sepsis. 2. Chronic kidney disease. 3. Systemic lupus erythematosus. 4. Pancytopenia. DISCUSSION AND PLAN: The patient is stable for transition out of the ICU to the medical unit. Pulmonary Critical Care will continue to follow along. We will put a Hemology consultation to workup for recurrent pancytopenia, which may lupus or medication related. 70 minutes have been devoted to this patient in various activities. I personally reviewed all imaging studies and laboratory data noted within this document. For fifty percent of this time, I was interacting with the patient at the bedside or coordinating care with the care team. For the remainder of the time I was immediately available to the patient in the hospital unit. KADEN
--- NOTE | 2017-12-01 11:52 | CON ---
DATE OF CONSULTATION: 11/30/2017 TIME: 7:00 p.m. in the emergency room. REASON FOR CONSULTATION: Hyperkalemia. HISTORY OF PRESENT ILLNESS: This is a very pleasant 72-year-old female being seen by me at the [facility], presented to the hospital with poor p.o. intake as well as chest pain. The patient was noted to have creatinine 2.5, potassium of 6 with a bicarbonate of less than 10, so I was consulted. The p atient denies headache, numbness, tingling or weakness. Denies any nausea, vomiting, chest pain. PAST MEDICAL HISTORY: Lupus, CMV colitis, history of angina, history of CKD stage 3-4 with recurrent admissions, history of adrenal insufficiency, colectomy, history of left lung mass, history of renal artery embolization. History of ITP, history of esophagitis, colitis, cystoscopy. HOME MEDICATIONS: List reviewed. HOSPITAL MEDICATIONS: List reviewed. ALLERGIES: Reviewed. REVIEW OF SYSTEMS: Fifteen point review of systems was performed and negative except positives noted above. GENERAL: Weakness- HEAD: Headache- NECK: No swelling or lumps. NOSE: No epistaxis or discharge. EYES: No diplopia or pain. RESPIRATORY: Dyspnea- CARDIOVASCULAR: Chest pain- GASTROINTESTINAL: Nausea- /LEACH TANK TENDER: Hematuria- MUSCULOSKELETAL: No joint pain. NEUROPSYCHIATIC SYSTEMS: No suicidal ideation. No ideation. SKIN: Denies any rash or ulcer. CONSTITUTIONAL: No fever or chills. PHYSICAL EXAMINATION: GENERAL: Patient was awake, alert. VITAL SIGNS: Afebrile, pulse 75, breathing 16, blood pressure 124/57. OBJECTIVE: See above. Awake, alert, in no acute distress. GENERAL APPEARANCE AND MENTAL STATUS: Fair. HEAD/NECK: Normocephalic. Atraumatic. EYES: EOMI. No deformity. EARS: Clear. No ulcers. NOSE: Intact. No lesions. MOUTH: Clear. No discharge. THROAT: Clear. No exudate. LUNGS: Clear. No crackles. CARDIAC: S1, S2. No rub. ABDOMEN: Benign. BS+. GENITALIA/RECTUM: Villanueva absent. BACK/EXTREMITIES: Edema 0+ Ulcer- NEUROLOGICAL: Alert and motor intact. SKIN: Rash- Bruise- LYMPHATICS: Edema- Ulcer- LABORATORY: Hemoglobin 10.9, bicarbonate was 12, potassium was 6, creatinine was 2.5. ASSESSMENT AND RECOMMENDATIONS: 1. Acute kidney injury with chronic kidney disease due to decreased effective arterial blood volume. Recommend hydration. 2. Hyperkalemia due to metabolic acidosis. Give sodium bicarbonate 3. Metabolic acidosis due to renal failure and diarrhea. 4. Anemia, stable. 5. Medication based on glomerular filtration rate are appropriate. No urgent indication for dialysis.
[2017-12-01 15:30] VITALS: BMI 15.5
--- NOTE | 2017-12-01 16:06 | PDOC.PN ---
- Subjective Encounter Start Date: 12/01/17 Encounter Start Time: 15:00 Patient is seen today, alert and oriented. No oher Concerns noted. Pt is very weak, Discussed with Daughter, Pt is scheduled for CHRISTIAN tomorrow and her chest pain per cardology is likley esophagitis and requesting Goi to see her for possible EGD. - Objective Resuscitation Status: Resuscitation Status FULL:Full Resuscitation MAR Reviewed: Yes Vital Signs & Weight: Vital Signs (12 hours) Temp Pulse Resp Pulse Ox 12/01/17 11:47 97.5 F L 72 16 96 12/01/17 08:00 97.8 F 12/01/17 07:56 97.8 F 95 15 95 Weight Admit Weight 77 lb Weight 77 lb 2.589 oz Most Recent Monitor Data Heart Rate from ECG 78 NIBP 115/60 NIBP BP-Mean 78 Respiration from ECG 12 SpO2 94 I&O: 11/30/17 12/01/17 12/02/17 06:59 06:59 06:59 Intake Total 1462 700 Output Total 825 401 Balance 637 299 Result Diagrams: 12/01/17 03:33 12/01/17 03:33 Additional Labs: Accuchecks 11/30/17 17:34 POC Glucose 76 Radiology Reviewed by me: Yes Phys Exam - Physical Examination HEENT: PERRLA Neck: no nodes, no JVD Respiratory: no wheezing, no rales Cardiovascular: RRR, no significant murmur Gastrointestinal: soft, non-tender Musculoskeletal: no edema, pulses present Psychiatric: normal affect, A&O x 3 Skin: no rash, normal turgor Dx/Plan (1) Chest pain Code(s): R07.9 - CHEST PAIN, UNSPECIFIED Status: Acute Comment: Cardiology is Seeing pt, Recommeded CHRISTIAN, will kendall follow, continue on BB. (2) Neutropenia Code(s): D70.9 - NEUTROPENIA, UNSPECIFIED Status: Acute Comment: PT is Started on Zosyn, Low Absolute Count <500, will need Fligrastim, Consulted Oncology, likely from lupus. (3) Acute hyperkalemia Code(s): E87.5 - HYPERKALEMIA Status: Resolved Comment: Paitnt is Feeeling some palpitations, So Kayxalate give 30gm, Will kendall Monitor today. Telemetry looked fine. (4) Acute worsening of stage 3 chronic kidney disease Code(s): N18.3 - CHRONIC KIDNEY DISEASE, STAGE 3 (MODERATE) Status: Acute Comment: Improved with Villanueva drainage, avoid nephrotoxic meds and contrast media (5) Esophagitis, CMV Code(s): K20.8 - OTHER ESOPHAGITIS; B25.8 - OTHER CYTOMEGALOVIRAL DISEASES Status: Acute Comment: CMV or Candidal. GI being consulted, For possible EGD, Pt is started on Fluconazole. (6) GERD (gastroesophageal reflux disease) Code(s): K21.9 - GASTRO-ESOPHAGEAL REFLUX DISEASE WITHOUT ESOPHAGITIS Status: Chronic Qualifiers: Esophagitis presence: esophagitis presence not specified Qualified Code(s) : K21.9 - Gastro-esophageal reflux disease without esophagitis Comment: Continue with PPI (7) SLE (systemic lupus erythematosus) Code(s): M32.9 - SYSTEMIC LUPUS ERYTHEMATOSUS, UNSPECIFIED Status: Chronic Qualifiers: Systemic lupus erythematosus type: unspecified Comment: Stable, no acute flare - Plan cont current plan of care, plan discussed w/ family, continue antibiotics, PT/OT , social professionals, speech therapy, respiratory therapy, incentive spirometry, DVT proph w/lovenox * . Review of Systems - Review of Systems Eyes: negative: Pain, Vision Change, Conjunctivae Inflammation, Eyelid Inflammation, Redness, Other ENT: negative: Ear Pain, Ear Discharge, Nose Pain, Nose Discharge, Nose Congestion, Mouth Pain, Mouth Swelling, Throat Pain, Throat Swelling, Other Respiratory: negative: Cough, Dry, Shortness of Breath, Hemoptysis, SOB with Excertion, Pleuritic Pain, Sputum, Wheezing Cardiovascular: chest pain. negative: palpitations, orthopnea, paroxysmal nocturnal dyspnea, edema, light headedness, other Gastrointestinal: Nausea. negative: Vomiting, Abdominal Pain, Diarrhea, Constipation, Melena, Hematochezia, Other Musculoskeletal: negative: Neck Pain, Shoulder Pain, Arm Pain, Back Pain, Hand Pain, Leg Pain, Foot Pain, Other Skin: Bruising. negative: Rash, Lesions, Surya, Other - Medications/Allergies Allergies/Adverse Reactions: Allergies Allergy/AdvReac Type Severity Reaction Status Date / Time iron Allergy Severe Rash Verified 10/12/17 23:33 Sulfa (Sulfonamide Allergy Severe Rash Verified 10/12/17 23:33 Antibiotics) magnesium sulfate Allergy Verified 10/12/17 23:33 sulfate Allergy Uncoded 10/12/17 23:33 Medications: Current Medications Acetaminophen (Tylenol) 650 mg PO Q4H PRN PRN Reason: Headache/Fever or Pain Last Admin: 12/01/17 06:19 Dose: 650 mg Hydrocodone Bitart/Acetaminophen ([place] 5/325) 1 tab PO Q4H PRN PRN Reason: Moderate Pain (4-6) Aspirin (Aspirin) 325 mg PO DAILY [facility] Last Admin: 12/01/17 10:15 Dose: 325 mg Calcitriol (Rocaltrol) 0.25 mcg PO DAILY [facility] Last Admin: 12/01/17 10:16 Dose: 0.25 mcg Calcium Carbonate (Tums) 500 mg PO QIDPRN PRN PRN Reason: Heartburn or Indigestion Carvedilol (Coreg) 3.125 mg PO BID [facility] Last Admin: 12/01/17 10:17 Dose: 3.125 mg Clonidine (Catapres) 0.1 mg PO Q6H PRN PRN Reason: Hypertension Famotidine (Pepcid) 20 mg PO 2100 [facility] Last Admin: 11/30/17 21:26 Dose: 20 mg Fluconazole (Diflucan) 100 mg PO 1800 [facility] Last Admin: 11/30/17 21:26 Dose: 100 mg Gabapentin (Neurontin) 300 mg PO BID [facility] Last Admin: 12/01/17 09:33 Dose: 300 mg Hydroxychloroquine Sulfate (Plaquenil) 300 mg PO DAILY [facility] Last Admin: 12/01/17 09:36 Dose: 300 mg Dextrose/Sodium Chloride (D5 1/2 Ns) 1,000 mls @ 100 mls/hr IV .Q10H [facility] Last Admin: 12/01/17 14:56 Dose: 1,000 mls Piperacillin Sod/Tazobactam (Sod 2.25 gm/ Sodium Chloride) 100 mls @ 200 mls/ hr IVPB 0100,0900,1700 [facility] Last Admin: 12/01/17 09:38 Dose: 100 mls Lactulose (Lactulose) 20 gm PO TID PRN PRN Reason: Constipation Lidocaine (Lidoderm 5% Patch) 1 patch TD 0900 [facility] Last Admin: 12/01/17 10:20 Dose: 1 patch Miscellaneous Medication (Lidocaine Patch Removal) 1 each TOP ASDIR [facility] Nitroglycerin (Nitro-Bid 2% Ointment) 0.5 inch TOP Q8HR [facility] Last Admin: 12/01/17 14:38 Dose: 0.5 inch Nitroglycerin (Nitrostat) 0.4 mg PO Q5MIN PRN PRN Reason: Chest Pain Nystatin (Mycostatin) 200,000 units SSW QID [facility] Last Admin: 12/01/17 14:38 Dose: 200,000 units Ondansetron HCl (Zofran Odt) 4 mg PO Q6H PRN PRN Reason: Nausea/Vomiting Pantoprazole Sodium (Protonix) 40 mg PO Q12HR [facility] Last Admin: 12/01/17 10:17 Dose: 40 mg Prednisone (Prednisone) 25 mg PO QAM[facility] Last Admin: 12/01/17 09:35 Dose: 25 mg Saccharomyces Boulardii (Florastor) 250 mg PO DAILY [facility] Last Admin: 12/01/17 09:34 Dose: 250 mg Simethicone (Mylicon Chewable) 80 mg PO TID PRN PRN Reason: Dyspepsia Sodium Bicarbonate (Bicarbonate, Sodium) 650 mg PO BID [facility] Last Admin: 12/01/17 10:18 Dose: 650 mg Sodium Chloride (Flush - Normal Saline) 10 ml IVF Q12HR [facility] Last Admin: 12/01/17 10:59 Dose: 10 ml Sodium Chloride (Flush - Normal Saline) 10 ml IVF PRN PRN PRN Reason: Saline Flush
--- NOTE | 2017-12-01 17:26 | CON ---
DATE OF CONSULTATION: 12/01/2017 REASON FOR CONSULTATION: Neutropenia, weakness, diarrhea. HISTORY OF PRESENT ILLNESS: A 72-year-old, well known to us from multiple prior visits, both in clin ic as well as in the hospital setting with a history of systemic lupus erythematosus for many years a nd nephritis treated with Cytoxan and prednisone and then switched to CellCept and prednisone and myc ophenolate. The patient has had recurrent UTIs and then CMV gastroenteritis, biopsy-proven treated w ith valganciclovir or Valcyte with improvement. The patient developed episode of neutropenia associa michelle with fatigue, decrease in GFR and the concomitant Valcyte therapy. This improved after renal fun ction improved. Dose of Valcyte was adjusted. I saw her in October and her viral load was still 200. We decided to continue Valcyte, dose adjusted. She had developed some oral ulcers, which improved a nd then she was discharged and I saw Ms. Burnett in 11/20. At that time, she was having some cramps , 2-3 soft bowel movements per day, no fever, no dyspnea. She appeared chronically ill. She had com pleted treatment for emphysematous cystitis with Zosyn. We repeated CMV viremia, which was 200. I r epeated a C. diff test, which was negative. The patient now presents to [facility] of odynophagia when she initially thought it was chest pain, but is clearly related to swallowing e vents. She was feeling weak because she was unable to swallow or drink fluids and continued to have some diarrhea. Eventually activated EMS and they brought her to the hospital. PHYSICAL EXAMINATION: VITAL SIGNS: Initial BP 120/69, heart rate 110, respirations were 18, O2 saturation 98%. GENERAL: Did not appear in any acute distress. LUNGS: Clear. No wheezing. HEART: With tachycardia. No murmurs. ABDOMEN: Soft, nontender. INITIAL LABORATORY DATA: White cell count 1.8, hemoglobin 10.9, MCV 100 with 62% neutrophils, 17% ba nds and a total neutrophil count of about 6700-3251. Chemistry showed a creatinine at 2.48, which is a bit higher than her baseline. Liver profile normal except for alkaline phosphatase, which was 155 and this could be a bone alkaline phosphatase. Albumin 3.7, globulin 1.9. The patient has been giv en hydrocodone, calcitriol, dextrose, fluconazole, lactulose, Zosyn, simethicone. Currently, she is awake. She still is having some odynophagia. No cough or sputum production or dyspnea. Some abdomi nal cramps intermittently. Still does in and out catheterizations. The postvoid residuals are aroun d 150-200 mL. PAST MEDICAL HISTORY: SLE with nephritis, renal insufficiency stage 3, neurogenic bladder with urina ry retention requiring in and out catheterization, recurrent UTIs, CMV gastroenteritis managed with V alcyte, neutropenia associated with Valcyte and decreased renal function, which improved after adjust ment of dose. ALLERGIES: SULFA DRUGS. PAST SURGICAL HISTORY: Hysterectomy, splenectomy, ovarian mass removal. SOCIAL HISTORY: Never a smoker. Lives with family. FAMILY HISTORY: Noncontributory. MEDICATIONS: The meds have been reported above. PHYSICAL EXAMINATION: VITAL SIGNS: Normal temperature, T-max 98.2, blood pressure 115/60, pulse 78. GENERAL: Appears chronically ill, but in no acute distress. Multiple areas of bruising in the appen dicular structures, skin as well as chest. Peripheral IV access. No Villanueva catheter. No lymphadenop athy. HEENT: Ocular movements are conjugate. Oral cavity somewhat dry. Some tongue coating. NECK: Supple with jugular venous distention. LUNGS: Symmetric air entry. S1, S2 regular rate. ABDOMEN: Soft and not distended or tender. Bowel sounds are a little bit increased. No ascites. EXTREMITIES: No joint inflammatory activity, atrophy of musculature of upper and lower extremities. NEUROLOGIC: Cognitive function appears to be stable. She is oriented, follows commands, pleasant. LABORATORY DATA: Sodium is up to 135, creatinine is down to 2.48. Total white cell count is at 0.9, hemoglobin 9.7 with about 450 neutrophils. Urinalysis from October, urine culture, the latest C. diff test from 11/25 were negative. ASSESSMENT: 1. Systemic lupus erythematosus on immunosuppressive medication. 2. 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 3. Cytomegalovirus gastroenteritis, biopsy proven with improvement after the valganciclovir. 4. Episode of neutropenia associated with valganciclovir plus renal insufficiency. DISCUSSION: The patient now has developed recrudescence of the symptoms of volume depletion, weaknes s. Her neutrophil count has decreased and it is probably related to Valcyte. This will be withheld until her renal function improves. Recheck CMV, DNA, PCR. She does have odynophagia, which may have contributed to the sequence of events since it would lead to decreased oral intake and then volume d epletion, decreased renal function and Valcyte toxicity. May need an EGD by Gastroenterology to eval uate for opportunistic esophageal processes.
[2017-12-01] MEDS: Fluconazole 100 MG TAB PO SCH (17:54)
--- NOTE | 2017-12-01 20:36 | CON ---
DATE OF CONSULTATION: 12/01/2017 REASON FOR CONSULTATION: Neutropenia. HISTORY OF PRESENT ILLNESS: Ms. Burnett is a 72-year-old female with a complicated medical history. She has systemic lupus erythematous with nephritis and was treated with Cytoxan and prednisone for many years. She is currently on CellCept, prednisone and Plaquenil. In September, she was diagnosed wit h a UTI. She developed CMV, gastroenteritis and was placed on valganciclovir. She had an episode of severe neutropenia requiring hospitalization. She eventually improved and developed urinary retenti on. She was diagnosed and treated for emphysematous cystitis beginning of October. The patient was st arting to improve and went home for several days. Her white count returned to a normal value. Her p latelets were normal. She does have chronic anemia due to chronic kidney disease 4. On Mother's Day , the daughter states that her appetite decreased and over the past week, she has had minimal p.o. in take. She states that her food is "stuck." She began to have chest pain and palpitations today and presented to the ER for evaluation. Her white count was 1.8, hemoglobin was 10.9 and a platelet coun t was 175,000. Her kidney function was slightly worse with a creatinine of 2.48. She had 4+ bacteri a in her urine. She was admitted for chest pain and neutropenia. Daughter denies that she has had a ny fever over the last few weeks. Dr. Yates, Mary and Alan have all been consulted. We were asked to see the patient regarding her low white count. PAST MEDICAL HISTORY: 1. SLE with nephritis 2. Chronic kidney disease 4. 3. History of ITP with splenectomy. 4. Adrenal insufficiency. 5. Recent CMV colitis. 6. Chronic urinary tract infection. 7. Recent cystitis. PAST SURGICAL HISTORY: 1. Splenectomy. 2. Hysterectomy. 3. Cystoscopy. ALLERGIES: IRON and SULFA. HOME MEDICATIONS: Include Norvasc, calcitriol, Aranesp, Lasix, Neurontin, Plaquenil, lactulose, meto prolol, CellCept, Protonix, prednisone. FAMILY HISTORY: Noncontributory. SOCIAL HISTORY: She is , has 3 children. She lives with her daughter. No alcohol, tobacco o r illicit drug use. REVIEW OF SYSTEMS: Constitutional: No fever, chills, night sweats. Eyes: No blurred or double vis ion. ENT: No pain, hoarseness, sore throat. Positive for dysphagia. Cardiovascular: Positive for chest pain or palpitations, no syncope. Respiratory: No shortness of breath, dyspnea on exertion o r orthopnea. Gastrointestinal: Positive for stomach pain, no vomiting, constipation, or diarrhea. Genitourinary: Positive for dysuria. Musculoskeletal: Positive for joint and back pain. Skin: No rash or pruritus. Hematological: Positive for easy bruising, no bleeding. Neurologic: Positive f or weakness, no headache, tingling or seizure activity. Psychiatric: Positive for depression. PHYSICAL EXAMINATION: VITAL SIGNS: Temperature is 97.5, pulse is 84, respiratory rate 18, BP is 125/73. She is 97% on vanessa m air. GENERAL: This is a chronically ill-appearing female, in no acute distress. HEENT: Normocephalic, atraumatic. Pupils are equal and reactive to light. NECK: Supple. CARDIOVASCULAR: Regular rate and rhythm. LUNGS: Clear. ABDOMEN: Mildly tender to palpation. Bowel sounds are positive. There is no organomegaly. EXTREMITIES: No clubbing, cyanosis or edema. SKIN: She has got no rash. HEMATOLOGIC: She has got ecchymosis on her arms, scattered bruising on her chest. NEUROLOGICAL: Nonfocal. PSYCHIATRIC: The patient is alert and oriented and appropriate. PERTINENT LABORATORY AND X-RAYS: Current WBCs 900, hemoglobin 9.7, hematocrit 30.8, platelet count i s 141. She has 44% neutrophils, 10% bands, 16% lymphocytes, 28% monocytes, she has got 9 nucleated r eds. Sodium is 135, potassium 3.7, chloride 105, CO2 is 15, BUN is 78, creatinine 2.12, calcium 7.6, total bilirubin is 0.4, AST is 9, ALT is 9, alkaline phosphatase is 155, CK-MB is 7.6, troponin 0.02 2. BNP is 99. Serum total protein 5.6, albumin 3.7, globulin 1.9. Urine had 4+ bacteria. IMPRESSION: 1. Leukopenia with neutropenia. 2. Lupus, on Plaquenil and CellCept. 3. Chronic kidney disease 4, on Procrit. 4. Chronic urinary tract infection. 5. History of recent cystitis. 6. Recent cytomegalovirus colitis. 7. Recent hospitalization with pancytopenia. 8. New onset dysphagia. DISCUSSION: The patient is on antibiotics and intravenous fluids for her urinary tract infection. Anthony Hernandez has seen the patient as well as Dr. Yates. The patient's WBC count was normal on 11/10; however, since August, she has had nucleated RBCs on her differential, although this may be to a chronic infection and most likely may not represent a primary blood disorder. Dr. Petty and m yself feel a bone marrow biopsy is appropriate once her acute complaints have been stabilized. No Ne upogen until after bone marrow make the consult. We will follow her hospital course.
[2017-12-01] MEDS: Famotidine 20 MG TAB PO SCH (21:09)
--- NOTE | 2017-12-01 21:13 | CON ---
DATE OF CONSULTATION: 12/01/2017 HISTORY OF PRESENT ILLNESS: The patient is a 72-year-old female, who reports was reports se veral week history of dysphagia. She describes when she is swallowing, she feels pressure when the f ood goes down. She has had no regurgitation. The daughter reports that she did not really much sinc e a week ago. Dr. Johnston performed upper endoscopy on 08/26/2017 and this showed a distal esophageal ulcer, which was atypical in appearance. It was biopsied at the ulcer edge, stomach and duodenum we re normal. Colonoscopy is noted for scattered ulcers in the rectum, sigmoid ascending, transverse ar eas. Histopathology of these ulcers showed a CMV positive and HSV to be suspicious. CMV of the colo n biopsies were positive. Dr. Whitaker's progress note from the hospitalization in August showed CMV c olitis and diarrhea secondary to CMV colitis. Presently she has had an abnormal echocardiogram and r equest us for an upper endoscopy to be performed prior to CHRISTIAN. PAST MEDICAL HISTORY: 1. Systemic lupus erythematosus. 2. CMV colitis. 3. CMV esophageal ulcer. 4. Chronic kidney disease. PAST SURGICAL HISTORY: Includes splenectomy, renal artery embolization. ALLERGIES: Includes SULFA. SOCIAL HISTORY: She does not smoke or drink. FAMILY HISTORY: Negative for GI or liver disease. MEDICATIONS: Include metoprolol 100 mg p.o. q. day, Protonix 40 mg p.o. b.i.d., prednisone 20 mg p.o . q.a.m. and 10 mg p.o. q.p.m., Plaquenil one half tabs p.o. q. day, Neurontin 300 mg p.o. b.i.d., Ca lcitriol 0.25 mg p.o. q. day, Norvasc 1 p.o. q.p.m., vitamin D 5000 units p.o. q. day, CellCept 2 p.o . b.i.d., loperamide 2 mg p.o. p.r.n., Lasix 20 mg p.o. q. day, Florastor 250 mg p.o. q. day, and Kerri cyte 400 mg p.o. ALLERGIES: Include IRON, SULFA, MAGNESIUM SULFATE, AND SULFATES. REVIEW OF SYSTEMS: Ten-systems were reviewed and were negative except for above. PHYSICAL EXAMINATION: GENERAL: Shows an elderly female in no acute distress. She is definitely Cushingoid. VITAL SIGNS: Temperature 97.5, pulse 84, respiratory rate 18, and blood pressure 125/73. HEENT: Unremarkable. NECK: Supple. CHEST: Clear. CARDIOVASCULAR: Regular rate and rhythm. ABDOMEN: Soft, nontender, without organomegaly or masses. RECTAL: Deferred. LABORATORY DATA: Shows a white blood cell count of 1.8, hemoglobin 10.9, hematocrit 33.9, platelet c ounts are 175,000. PT is 12.8 with an INR of 1.0. Chemistries show sodium 135, CO2 of 15, BUN 78, c reatinine 2.12. Urinalysis from 11/30/2017 is essentially negative. ASSESSMENT: 1. Dysphagia. 2. History of Cytomegalovirus esophageal ulcer. 3. Lupus. 4. Abnormal echocardiogram in need for transesophageal echocardiogram. RECOMMENDATIONS: 1. EGD tomorrow. 2. These results will dictate further management.
[2017-12-02] MEDS: Piperacillin/Tazobactam 2.25 GM in Sodium Chloride 0.9% 100 ML IVPB SCH ×3 (00:31→19:52)
[2017-12-02] MEDS: Dextrose 5 %-0.45 % NaCl 1,000 ML IV SCH ×3 (00:33→21:47)
--- NOTE | 2017-12-02 05:50 | CON ---
DATE OF CONSULTATION: 12/01/2017 REASON FOR CONSULTATION: Chest pain. HISTORY OF PRESENT ILLNESS: Ms. Burnett is a very pleasant 72-year-old female who comes to the hospital for chest pain. She was admitted recently for complicated urinary tract infection and emphysematous cystitis, this has improved. She was out of the hospital for about 20 days. She had been having some palpitations since the day for admission, heart rate was in the low 100s like just sinus tachycardia. She had blood work secondary to this and showed a potassium of 6 and a worsening creatinine of 2.5, so her potassium supplementation was stopped and remained tachycardic, so she was admitted for evaluation. She states that she had some chest pain mostly on the right side and in her right shoulder, but also has complaints of difficulty swallowing. She tells me that every time she swallows it hurts mid sternal to the upper part of the sternum and the chest. She states that she does not feel it is difficult to swallow only painful. PAST MEDICAL HISTORY: 1. Systemic lupus erythematous. 2. CMV colitis in the past. 3. Lupus nephritis in the past. 4. Chronic kidney disease stage 3. 5. Recurrent urinary tract infection. 6. History of urinary retention. 7. Adrenal insufficiency. 8. Left lung mass. PAST SURGICAL HISTORY: 1. Splenectomy. 2. History of renal artery embolization. FAMILY HISTORY: Noncontributory. SOCIAL HISTORY: No alcohol, tobacco, or drugs. ALLERGIES: Allergic to: 1. SULFA DRUGS. 2. IRON SUPPLEMENTS. 3. MAGNESIUM SULFATE. OUTPATIENT MEDICATIONS: Include, 1. Metoprolol 100 mg daily. 2. Protonix. 3. Prednisone 10 mg in the morning, 10 mg in the evening. 4. Plaquenil 5. Gabapentin 200 mg p.o. b.i.d. 6. Calcitriol. 7. Amlodipine daily. 8. Sore throat lozenges. 9. Acetaminophen with caffeine. 10. Vitamin D3. 11. CellCept 2 tablets b.i.d. 12. Imodium p.r.n. 13. Zofran. 14. Calcium carbonate or Tums. 15. Lasix 40 mg. 16. Simethicone. 17. Lidocaine patch. 18. Nystatin powder. 19. Florastor. 20. Valganciclovir. REVIEW OF SYSTEMS: A 12-point review of systems was done and is all negative unless stated in the history of present illness. PHYSICAL EXAMINATION: VITAL SIGNS: Temperature 97.5, pulse 84, respiratory rate 18, satting 97% on room air, and blood pressure 125/73. GENERAL: Awake, alert, oriented x3, in no distress. HEENT: Normocephalic, atraumatic. NECK: Supple. LUNGS: Clear. CARDIOVASCULAR: S1, S2, no S3, S4. There is a grade 2/6 holosystolic murmur at the apex. ABDOMEN: Soft, positive bowel sounds. EXTREMITIES: No edema. SKIN: Warm and dry. Nailbeds are unremarkable. LABORATORY DATA: Laboratory work was reviewed. White count of 1.8 down to 0.9 today, hemoglobin of 10 down to 9.7, platelet count of 141. Chemistry was unremarkable except for a BUN of 78, creatinine 2.12 this is down from 2.4, GFR was 23. Triglycerides of 165, total cholesterol of 276, LDL of 200, HDL of 43. UA: 4+ bacteria, 7-10 hyaline casts and trace leukocyte esterase. EKG was reviewed. Echocardiogram was reviewed. She has a possible small mass versus vegetation on the mitral apparatus not completely characterized on transthoracic echo. ASSESSMENT AND PLAN: 1. Chest pain: Right-sided chest pain, very small effusion could be related to some level of pericarditis. At this time, her symptoms are related to swallowing and on the right side, I do not think she is having an acute coronary syndrome and I suspect her symptoms may be related to a gastrointestinal issue. 2. Possible vegetation: She would need a transesophageal echo for better evaluation of this mass; however, given her odynophagia, I would have her be evaluated by GI prior to any transesophageal echo planning. Hopefully, she will get an endoscopy to evaluate for anything. My suspicion that she may have some thrush making her have some pain, we will defer to GI. Thank you for letting us to participate in the care of your patient. We will follow along with you. KADEN
[2017-12-02] MEDS: Nitroglycerin 2% Ointment 1 INCH/1 GM Packet TOP SCH ×3 (05:55→21:37)
--- NOTE | 2017-12-02 08:21 | PRG ---
DATE OF SERVICE: 12/02/2017 SUBJECTIVE: The patient is resting comfortably, daughter at bedside. PHYSICAL EXAMINATION: VITAL SIGNS: Stable, afebrile. I's and O's discussed with nursing staff and his daughter at bedside. We will keep strict documentation. PVR has been variable from 225 to 300, 400. Spontaneous urethral void variable from 0 to 300 mL. She is tolerating CIC uneventfully. ABDOMEN: Soft, nontender, nondistended. LABORATORY: There are no new labs. Yesterday her white count was 0.9, creatinine of 2.1. Urine culture is pending. C. diff is negative. IMPRESSION AND PLAN: 1. Ms. Burnett is a 72-year-old female with history of CMV esophagitis, Klebsiella emphysematous cystitis, history of urinary retention, recently admitted for hypokalemia, new onset leukopenia with neutropenia. Due to her immunocompromised state, I restarted Zosyn. Typically would not treat a urine culture positive on CIC. However, given her frail immunocompromised state it was initiated. Infectious Diseases is consulted, ultimately I will leave up to Dr. Phillips regarding antibiotic regimen. Continue CICs. 2. 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 The patient remains frail, guarded status. We will follow along with you. KADEN
[2017-12-02] MEDS: Nystatin 500,000 UNITS/5 ML UDCUP SSW SCH ×4 (09:00→21:36)
[2017-12-02] MEDS: Gabapentin 300 MG CAP PO SCH ×2 (09:01→21:36)
[2017-12-02] MEDS: Sodium Bicarbonate Tab 325 MG TAB PO SCH ×2 (09:02→21:36)
[2017-12-02] MEDS: Aspirin 325 MG TAB PO SCH (09:02)
[2017-12-02] MEDS: Hydroxychloroquine Sulfate 200 MG TAB PO SCH (09:04)
[2017-12-02] MEDS: Saccharomyces boulardii 250 MG CAP PO SCH (09:04)
[2017-12-02] MEDS: Calcitriol 0.25 MCG CAP PO SCH (09:04)
[2017-12-02] MEDS: Acetaminophen 325 MG TAB PO PRN (09:04)
[2017-12-02] MEDS: Carvedilol 3.125 MG TAB PO SCH ×2 (09:05→21:35)
[2017-12-02] MEDS: Lidocaine 5% Patch TD SCH (09:05)
[2017-12-02 11:24] LABS: Anion Gap 14 mmol/L (10-20); BUN (Urea Nitrogen) 43 mg/dL (9.8-20.1); Calc. Creatinine Clearance 22 mL/min (70-130); Calcium 7.4 mg/dL (7.8-10.44); Carbon Dioxide 17 mmol/L (23-31); Chloride 104 mmol/L (98-107); Estimated GFR-MDRD 39; Glucose 113 mg/dL (80-115); Sodium 132 mmol/L (136-145)
[2017-12-02 11:29] LABS: Hemoglobin 9.6 g/dL (12.0-16.0); Potassium 2.8 mmol/L (3.5-5.1)
--- NOTE | 2017-12-02 11:30 | PQF ---
CLINICAL DOCUMENTATION IMPROVEMENT CLARIFICATION FORM: ICD-10 Updated PLEASE DO AN ADDENDUM TO THE PROGRESS NOTE WITH ANY DOCUMENTATION UPDATES OR ADDITIONS AND CARRY THROUGH TO DC SUMMARY. THANK YOU. Date: 12/02/17 ATTN: Dr. Pérez Please exercise your independent, professional judgment in responding to the clarification form. Clinical indicators are provided on the bottom of this form for your review Please check appropriate box(s): [ x ] Protein Calorie Malnutrition: [ ] Mild [ x ] Moderate [ ] Severe [ ] Other Malnutrition (please specify) __ [ ] Other diagnosis [ ] Unable to determine In addition, please specify: Present on Admission (POA): [ x ] Yes [ ] No [ ] Unable to determine CLINICAL INDICATORS - SIGNS / SYMPTOMS / LABS RENAL SOCIAL WORKER ASSESSMENT 12/01: BMI 15.5 NUTRITION DX: MALNUTRITION RELATED TO CKD EVIDENCED BY: 19% WEIGHT LOSS OVER THE PAST MONTH W/ DECREASED PO INTAKE X 2-3 WEEKS SEVERE TEMPORAL MUSCLE WASTING OBSERVED. RISKS: H&P: HX SYSTEMIC LUPUS ERYTHEMATOSUS CMV COLITIS, HX OF LUPUS NEPHRITIS. PT HAS CKD. TREATMENT: ORDER 12/01: RENAL SOCIAL WORKER CONSULT FOR POOR APPETITE Moderate Malnutrition (in acute illness) Energy Intake: <75% of estimated energy requirement for > 7 days Weight Loss: 1-2%/1 week; 5%/ 1 month; 7.5%/3 months Other: mild body fat loss; mild muscle mass loss; mild fluid accumulation ; Severe Malnutrition (in acute illness) Energy Intake: < 50% of estimated energy requirement for > 5 days Weight Loss: >1-2%/1 week; >5%/1 month; >7.5%/3 months Other: moderate body fat loss; moderate muscle mass loss; moderate- severe fluid accumulation; measurably reduced business analytics faculty member strength Moderate Malnutrition (in chronic illness) Energy Intake: <75% of estimated energy requirement for >1 month Weight Loss: 5%/1 month; 7.5%/3 months; 10%/6 months; 20%/1 year Other: mild body fat loss; mild muscle mass loss; mild fluid accumulation Severe Malnutrition (in chronic illness) Energy Intake: <75% of estimated energy requirement for >1 month Weight Loss: >5%/1 month; >7.5%/3 months; >10%/6 months; >20%/1 year Other: severe body fat loss; severe muscle mass loss; severe fluid accumulation; measurably reduced business analytics faculty member strength Thank you, Ayse (This form is maintained as a part of the permanent medical record) 2015 [employer]. All Rights Reserved Ayse Patel RN, BSN [email or web address] Office: [phone] [facility]PITALAnthony
[2017-12-02] MEDS: predniSONE 50 MG TAB PO SCH (11:48)
--- NOTE | 2017-12-02 12:23 | PRG ---
DATE OF SERVICE: 12/02/2017 SUBJECTIVE: This is a 72-year-old female being seen for acute kidney injury with chronic kidney dise ase stage 4. The patient denies any nausea, vomiting, chest pain. PHYSICAL EXAMINATION: GENERAL: Patient is awake, alert. VITAL SIGNS: Afebrile, pulse 70, breathing at 16, blood pressure 139/73. HEAD/NECK: Normocephalic. Atraumatic. EYES: EOMI. No deformity. EARS: Clear. No ulcers. NOSE: Intact. No lesions. MOUTH: Clear. No discharge. THROAT: Clear. No exudate. LUNGS: Clear. No crackles. CARDIAC: S1, S2. No rub. ABDOMEN: Benign. BS+. GENITALIA/RECTUM: Villanueva absent. BACK/EXTREMITIES: Edema 0+ Ulcer- NEUROLOGICAL: Alert and motor intact. SKIN: Rash- Bruise- LYMPHATICS: Edema- Ulcer- LABORATORY DATA: Show creatinine was 2.1 yesterday. Today's is pending. ASSESSMENT AND PLAN: 1. Hypertension, stable. 2. Anemia. Follow hemoglobin 3. Metabolic acidosis. Continue sodium bicarbonate. No indication for dialysis at this time.
--- NOTE | 2017-12-02 12:32 | PRG ---
DATE OF SERVICE: 12/02/2017 SUBJECTIVE: The patient is about the same as she was yesterday. I discussed with Speech Pathology a nd we decided to proceed with modified barium swallow prior to any endoscopy. OBJECTIVE: VITAL SIGNS: Temperature 98.0, pulse 87, respiratory rate 18, blood pressure 164/73. CHEST: Clear. CARDIOVASCULAR: Regular rate and rhythm. ABDOMEN: Soft and nontender without organomegaly or masses. LABORATORY DATA: Shows white blood cell count of 0.9, hemoglobin 9.7, and platelet count of 141,000. Chemistries significant for sodium 132, potassium 2.8, CO2 of 17, BUN 43, creatinine 1.34. ASSESSMENT: 1. Dysphagia. 2. History of CMV esophageal ulcer. 3. Lupus. 4. Severe leukopenia. RECOMMENDATIONS: 1. We will hold on EGD secondary to severe leukopenia. 2. Modified barium swallow. 3. We will follow with you.
--- NOTE | 2017-12-02 12:46 | PRG ---
DATE OF SERVICE: 12/02/2017 SERVICE: Pulmonary Medicine. INTERVAL HISTORY: The patient is doing fantastic from a respiratory standpoint. She is breathing co mfortably. She has no chest pain, nausea, vomiting, fevers, or chills. She has worked with Speech P athology, and occupational therapy to date. She is still waiting to hear from physical therapy today . She has not got out of bed since she has been in the hospital again. OBJECTIVE: VITAL SIGNS: Afebrile, pulse 87, blood pressure 164/73, respirations 18, saturations 95% on room air . GENERAL: The patient is awake, alert, no apparent distress. LUNGS: Decent air entry. There are some minimal crackles present. No prolonged expiratory phase or wheezing is appreciated. HEART: Normal rate, regular. ABDOMEN: Soft, nontender, nondistended. Bowel sounds are positive. MUSCULOSKELETAL: No cyanosis or clubbing. There is no pitting in the bilateral lower extremities. NEUROLOGIC: Grossly nonfocal. LABORATORY DATA: Hemoglobin 9.6 and roughly stable. Potassium 2.8, creatinine 1.34, BUN 43. Basic metabolic profile is otherwise unremarkable. Troponin down trending to 0.014. Urine culture is grow ing a gram-negative oswaldo. C. diff antigen and toxin are negative to date. ASSESSMENT: 1. Severe sepsis, improving. 2. Acute kidney injury on chronic kidney disease. 3. Systemic lupus erythematosus. 4. Pancytopenia, possibly secondary ganciclovir. 5. Recent CMV esophagitis and colitis. PLAN: At this point, the patient has no further requirements for inpatient Pulmonary or Critical Car e opinion. As such, I will sign off. Please call with additional questions or concerns moving forwa
[2017-12-02 13:02] LABS: Anion Gap 13 mmol/L (10-20); BUN (Urea Nitrogen) 42 mg/dL (9.8-20.1); Calc. Creatinine Clearance 24 mL/min (70-130); Calcium 7.2 mg/dL (7.8-10.44); Carbon Dioxide 16 mmol/L (23-31); Chloride 105 mmol/L (98-107); Estimated GFR-MDRD 43; Glucose 97 mg/dL (80-115); Sodium 131 mmol/L (136-145)
[2017-12-02 13:13] LABS: Potassium 2.8 mmol/L (3.5-5.1)
[2017-12-02 13:21] LABS: Hemoglobin 9.9 g/dL (12.0-16.0); Mean Corpuscular HGB CONC 31.3 g/dL (32.0-36.0); Mean Corpuscular Hemoglobin 31.5 pg (27.0-31.0); Platelet Count 143 thou/uL (130-400); RBC Distribution Width 20.1 % (11.5-14.5); Red Blood Cell (RBC) Count 3.14 mill/uL (4.20-5.40); White Blood Cell (WBC) Count 1.2 thou/uL (4.8-10.8)
[2017-12-02 13:32] LABS: Acanthocytes MODERATE= 6-15 cells (100X) (None Seen); Anisocytosis MODERATE=16-30 cells (100X) (0-5/hpf); Band 16 % (5-11); Eosinophils 4 % (0-10); Hypochromia SLIGHT = 6-15 cells (100X) (0-5/hpf); Lymphocytes 38 % (21-51); MDiff Complete? YES; Monocytes 8 % (0-10); Neutrophil 34 % (42-75); Nucleated RBC 3 % (0); PLT Morphology Comment Appears Adequate; Polychromasia MODERATE = 3-4 cells (100X) (0-2/hpf); Schistocytes MARKED= >16 cells (100X) (0-1/hpf)
--- NOTE | 2017-12-02 15:11 | PDOC.PN ---
- Subjective Encounter Start Date: 12/02/17 Encounter Start Time: 13:00 Patient is seen today, alert and oriented, She is C/o headache, Daughter at the bedside.She has No neck stiffness. No Altered mentation. No fever. She is Neutropenic. - Objective Resuscitation Status: Resuscitation Status FULL:Full Resuscitation MAR Reviewed: Yes Vital Signs & Weight: Vital Signs (12 hours) Temp Pulse Resp BP BP Pulse Ox 12/02/17 07:49 98.0 F 87 18 164/73 H 95 12/02/17 04:00 98.3 F 83 20 139/73 94 L Weight Admit Weight 77 lb Weight 77 lb 2.589 oz Most Recent Monitor Data Heart Rate from ECG 78 NIBP 115/60 NIBP BP-Mean 78 Respiration from ECG 12 SpO2 94 I&O: 12/01/17 12/02/17 12/03/17 06:59 06:59 06:59 Intake Total 1462 800 420 Output Total 825 1567 Balance 637 -767 420 Result Diagrams: 12/02/17 12:33 12/02/17 12:33 Radiology Reviewed by me: Yes Phys Exam - Physical Examination HEENT: PERRLA, moist MMs Neck: no nodes, no JVD Respiratory: no wheezing, no rales Cardiovascular: RRR, no significant murmur Gastrointestinal: soft, non-tender Musculoskeletal: no edema, pulses present Neurological: non-focal, normal sensation Lymphatic: no nodes Psychiatric: normal affect, A&O x 3 Dx/Plan (1) Headache above the eye region Code(s): R51 - HEADACHE Status: Acute Comment: Will increase to tylemnol 1000mg q6-8hr, pt do not want to take norco/tylenol 3, if headache getting worse , will have low threshhold for LP as pt is highy risk. (2) Chest pain Code(s): R07.9 - CHEST PAIN, UNSPECIFIED Status: Acute Comment: Cardiology is Seeing pt, Recommeded CHRISTIAN, will kendall follow, continue on BB. Persistant Chest pain, No stress test offerd at this time, Will discuss with cardiology as pt is high risk with LDL >200. (3) Neutropenia Code(s): D70.9 - NEUTROPENIA, UNSPECIFIED Status: Acute Comment: PT is Started on Zosyn, Low Absolute Count improving, Consulted Oncology, Planned for BM biospy. (4) Acute hyperkalemia Code(s): E87.5 - HYPERKALEMIA Status: Resolved Comment: Paitnt is Feeeling some palpitations, So Kayxalate give 30gm, Will claudyley Monitor today. Telemetry looked fine. (5) Acute worsening of stage 3 chronic kidney disease Code(s): N18.3 - CHRONIC KIDNEY DISEASE, STAGE 3 (MODERATE) Status: Acute Comment: Improved with Kerr drainage, avoid nephrotoxic meds and contrast media (6) Esophagitis, CMV Code(s): K20.8 - OTHER ESOPHAGITIS; B25.8 - OTHER CYTOMEGALOVIRAL DISEASES Status: Acute Comment: CMV or Candidal. GI being consulted, For possible EGD, Pt is started on Fluconazole. (7) GERD (gastroesophageal reflux disease) Code(s): K21.9 - GASTRO-ESOPHAGEAL REFLUX DISEASE WITHOUT ESOPHAGITIS Status: Chronic Qualifiers: Esophagitis presence: esophagitis presence not specified Qualified Code(s) : K21.9 - Gastro-esophageal reflux disease without esophagitis Comment: Continue with PPI (8) SLE (systemic lupus erythematosus) Code(s): M32.9 - SYSTEMIC LUPUS ERYTHEMATOSUS, UNSPECIFIED Status: Chronic Qualifiers: Systemic lupus erythematosus type: unspecified Comment: Stable, no acute flare (9) Protein-calorie malnutrition, severe Code(s): E43 - UNSPECIFIED SEVERE PROTEIN-CALORIE MALNUTRITION Status: Acute Comment: PT is Allergic Sulphate and most food Supplements have Sulphates, Consult [place]. - Plan cont current plan of care, plan discussed w/ family, kerr catheter, continue antibiotics, PT/OT, social secretary, respiratory therapy, incentive spirometry, DVT proph w/lovenox * . Review of Systems - Review of Systems Constitutional: weakness Eyes: negative: Pain, Vision Change, Conjunctivae Inflammation, Eyelid Inflammation, Redness, Other Respiratory: negative: Cough, Dry, Shortness of Breath, Hemoptysis, SOB with Excertion, Pleuritic Pain, Sputum, Wheezing Cardiovascular: chest pain. negative: palpitations, orthopnea, paroxysmal nocturnal dyspnea, edema, light headedness, other Gastrointestinal: negative: Nausea, Vomiting, Abdominal Pain, Diarrhea, Constipation, Melena, Hematochezia, Other Musculoskeletal: negative: Neck Pain, Shoulder Pain, Arm Pain, Back Pain, Hand Pain, Leg Pain, Foot Pain, Other Neurological: negative: Weakness, Numbness, Incoordination, Change in Speech, Confusion, Seizures, Other Other: headache, - Medications/Allergies Allergies/Adverse Reactions: Allergies Allergy/AdvReac Type Severity Reaction Status Date / Time iron Allergy Severe Rash Verified 10/12/17 23:33 Sulfa (Sulfonamide Allergy Severe Rash Verified 10/12/17 23:33 Antibiotics) magnesium sulfate Allergy Verified 10/12/17 23:33 sulfate Allergy Uncoded 10/12/17 23:33 Medications: Current Medications Acetaminophen (Tylenol) 1,000 mg PO Q6H PRN PRN Reason: Moderate to Severe Pain (6-10) Hydrocodone Bitart/Acetaminophen (Foreman 5/325) 1 tab PO Q4H PRN PRN Reason: Moderate Pain (4-6) Aspirin (Aspirin) 325 mg PO DAILY [facility] Last Admin: 12/02/17 09:02 Dose: 325 mg Calcitriol (Rocaltrol) 0.25 mcg PO DAILY [facility] Last Admin: 12/02/17 09:04 Dose: 0.25 mcg Calcium Carbonate (Tums) 500 mg PO QIDPRN PRN PRN Reason: Heartburn or Indigestion Carvedilol (Coreg) 3.125 mg PO BID [facility] Last Admin: 12/02/17 09:05 Dose: 3.125 mg Clonidine (Catapres) 0.1 mg PO Q6H PRN PRN Reason: Hypertension Famotidine (Pepcid) 20 mg PO 2100 [facility] Last Admin: 12/01/17 21:09 Dose: 20 mg Fluconazole (Diflucan) 100 mg PO 1800 [facility] Last Admin: 12/01/17 17:54 Dose: 100 mg Gabapentin (Neurontin) 300 mg PO BID [facility] Last Admin: 12/02/17 09:01 Dose: 300 mg Hydroxychloroquine Sulfate (Plaquenil) 300 mg PO DAILY [facility] Last Admin: 12/02/17 09:04 Dose: 300 mg Dextrose/Sodium Chloride (D5 1/2 Ns) 1,000 mls @ 100 mls/hr IV .Q10H [facility] Last Admin: 12/02/17 13:23 Dose: Not Given Piperacillin Sod/Tazobactam (Sod 2.25 gm/ Sodium Chloride) 100 mls @ 200 mls/ hr IVPB 0100,0900,1700 [facility] Last Admin: 12/02/17 09:05 Dose: 100 mls Lactulose (Lactulose) 20 gm PO TID PRN PRN Reason: Constipation Lidocaine (Lidoderm 5% Patch) 1 patch TD 0900 [facility] Last Admin: 12/02/17 09:05 Dose: 1 patch Miscellaneous Medication (Lidocaine Patch Removal) 1 each TOP ASDIR [facility] Nitroglycerin (Nitro-Bid 2% Ointment) 0.5 inch TOP Q8HR [facility] Last Admin: 12/02/17 13:22 Dose: 0.5 inch Nitroglycerin (Nitrostat) 0.4 mg PO Q5MIN PRN PRN Reason: Chest Pain Nystatin (Mycostatin) 200,000 units SSW QID [facility] Last Admin: 12/02/17 13:20 Dose: 200,000 units Ondansetron HCl (Zofran Odt) 4 mg PO Q6H PRN PRN Reason: Nausea/Vomiting Pantoprazole Sodium (Protonix) 40 mg PO Q12HR [facility] Last Admin: 12/02/17 09:01 Dose: 40 mg Potassium Chloride (Klor-Con) 40 meq PO Q4H [facility] Stop: 12/02/17 20:46 Last Admin: 12/02/17 13:22 Dose: 40 meq Prednisone (Prednisone) 25 mg PO QAM[facility] Last Admin: 12/02/17 11:48 Dose: 25 mg Rosuvastatin Calcium (Crestor) 20 mg PO [facility] Saccharomyces Boulardii (Florastor) 250 mg PO DAILY [facility] Last Admin: 12/02/17 09:04 Dose: 250 mg Simethicone (Mylicon Chewable) 80 mg PO TID PRN PRN Reason: Dyspepsia Sodium Bicarbonate (Bicarbonate, Sodium) 650 mg PO BID [facility] Last Admin: 12/02/17 09:02 Dose: 650 mg Sodium Chloride (Flush - Normal Saline) 10 ml IVF Q12HR [facility] Last Admin: 12/02/17 09:06 Dose: Not Given Sodium Chloride (Flush - Normal Saline) 10 ml IVF PRN PRN PRN Reason: Saline Flush
[2017-12-02 16:59] LABS: Potassium 4.7 mmol/L (3.5-5.1)
--- NOTE | 2017-12-02 17:59 | PDOC.CTH ---
Cardiology Progress Note - Subjective She is doing well. No new issues. - Objective Vital Signs Temp Pulse Resp BP BP Pulse Ox 12/02/17 16:00 97.6 F 76 18 129/75 95 12/02/17 08:00 98.0 F 87 18 95 12/02/17 07:49 98.0 F 87 18 164/73 H 95 Admit Weight 77 lb Weight 77 lb 2.589 oz 12/01/17 12/02/17 12/03/17 06:59 06:59 06:59 Intake Total 1462 800 420 Output Total 825 1567 Balance 637 -767 420 - Physical Examination General/Neuro: alert & oriented x3, NAD Neck: no JVD present Lungs: CTA, unlabored respirations Heart: RRR Abdomen: NT/ND Extremities: other: (no edema) - Labs Result Diagrams: 12/02/17 12:33 12/02/17 15:37 Troponin/CKMB CK-MB (CK-2) 7.6 ng/mL (0-6.6) H* 11/30/17 15:08 Troponin I 0.014 ng/mL (< 0.028) 11/30/17 21:35 - Assessment/Plan 1. Neutropenia. 2. Chest pain. 3. Possible vegetation on mitral valve. 4. Dysphagia 5. Hx of CMV esophageal ulcer. 6. ARF on CKD PLAN: - Continue to hold any CHRISTIAN evaluation until neutropenia resolved and EGD performed. - Would treat empirically for possible endocarditis. - Scheduled for bone marrow biopsy once more stable. - Will need stress testing as outpatient in the distant future. - No plan for C due to renal dysfunction.
--- NOTE | 2017-12-02 18:17 | PRG ---
DATE OF SERVICE: 12/02/2017 SUBJECTIVE: Still with the esophageal or swallowing pain. She had a swallowing study earlier today. The patient has no cough, still what she describes as grumbling for stomach with cramps, some loose stool. OBJECTIVE: VITAL SIGNS: T-max 98, blood pressure 120/75, pulse 76, respirations 18, O2 sat 95%. GENERAL: Chronically ill appearing, but in no distress. The bruising noted before. HEART: S1, S2, regular rate. LUNGS: With clear breath sounds. ABDOMEN: Bowel sounds are not changed. I did not see them increased. LABORATORY DATA: White cell count is up to 1.2, hemoglobin 9.9, platelets 143, total neutrophil coun t is about 600 at this time. The CMV DNA UltraQuant is less than 200, so this is a significant impro vement. ASSESSMENT AND DISCUSSION: 1. Systemic lupus erythematosus, on immunosuppressive medication. 2. Chronic renal insufficiency, stage 3. 3. Cytomegalovirus gastroenteritis biopsy proven with improvement after oral Valcyte. 4. Neutropenia secondary to Valcyte and worsening renal function which is probably due to decreased oral intake and volume depletion. In view of the CMV suppression, we will go ahead and discontinue V alcyte indefinitely now and monitor CMV viremia periodically. Wait on her esophageal evaluation.
[2017-12-02] MEDS: Fluconazole 100 MG TAB PO SCH (18:55)
[2017-12-02] MEDS: Famotidine 20 MG TAB PO SCH (21:35)
[2017-12-02] MEDS: Rosuvastatin 20 MG TAB PO SCH (21:36)
[2017-12-02] MEDS: Acetaminophen 500 MG TAB PO PRN (21:49)
[2017-12-02] MEDS ORDERED: diphenhydrAMINE 25 MG CAP PO PRN (23:22)
[2017-12-03] MEDS: Nitroglycerin 2% Ointment 1 INCH/1 GM Packet TOP SCH ×2 (05:56→14:25)
[2017-12-03] MEDS: Dextrose 5 %-0.45 % NaCl 1,000 ML IV SCH ×2 (08:00→17:38)
--- NOTE | 2017-12-03 08:33 | RAD ---
MODIFIED BARIUM SWALLOW: DATE: 12/02/17. HISTORY: Dysphagia, oropharyngeal phase, feeding difficulties. FINDINGS: A modified barium swallow is performed in conjunction with a member of the division of speech patholo gy. The patient is imaged in the lateral projection swallowing various consistencies of barium. There were bouts of penetration with multiple consistencies, including thin liquids, nectar thick liq uids, and pudding. Bouts of small volume aspiration noted with thin liquids. IMPRESSION: Penetration and aspiration as above. Please see the speech pathologist's report for full detail and feeding recommendations. POS: [place]
[2017-12-03] MEDS: Hydroxychloroquine Sulfate 200 MG TAB PO SCH (09:50)
[2017-12-03] MEDS: Aspirin 325 MG TAB PO SCH (09:50)
[2017-12-03] MEDS: Gabapentin 300 MG CAP PO SCH ×2 (09:51→20:57)
[2017-12-03] MEDS: predniSONE 50 MG TAB PO SCH (09:51)
[2017-12-03] MEDS: Lidocaine 5% Patch TD SCH (09:52)
[2017-12-03] MEDS: Nystatin 500,000 UNITS/5 ML UDCUP SSW SCH ×4 (09:52→20:56)
[2017-12-03] MEDS: Calcitriol 0.25 MCG CAP PO SCH (09:52)
[2017-12-03] MEDS: Carvedilol 3.125 MG TAB PO SCH ×2 (09:52→20:57)
[2017-12-03] MEDS: Saccharomyces boulardii 250 MG CAP PO SCH (09:52)
[2017-12-03] MEDS: Sodium Bicarbonate Tab 325 MG TAB PO SCH ×2 (09:52→20:56)
--- NOTE | 2017-12-03 12:50 | PDOC.PN ---
- Subjective Encounter Start Date: 12/03/17 Encounter Start Time: 07:45 Subjective: feels weak, is not eating much -: no nausea but has loss of appetite -: no chestpain, palp. Family at bedside - Objective Resuscitation Status: Resuscitation Status FULL:Full Resuscitation MAR Reviewed: Yes Vital Signs & Weight: Vital Signs (12 hours) Temp Pulse Resp BP BP Pulse Ox 12/03/17 11:22 98.2 F 76 16 126/71 96 12/03/17 10:07 98.3 F 92 18 95 12/03/17 07:39 98.3 F 92 18 165/88 H 95 Weight Admit Weight 77 lb Weight 77 lb 2.589 oz Most Recent Monitor Data Heart Rate from ECG 78 NIBP 115/60 NIBP BP-Mean 78 Respiration from ECG 12 SpO2 94 I&O: 12/02/17 12/03/17 12/04/17 06:59 06:59 06:59 Intake Total 800 495 Output Total 7325 1911 Balance -222 -3610 Result Diagrams: 12/02/17 12:33 12/02/17 15:37 Phys Exam - Physical Examination HEENT: PERRLA, moist MMs Neck: no JVD, supple Respiratory: no wheezing, no rales Cardiovascular: RRR, no significant murmur Gastrointestinal: soft, non-tender, positive bowel sounds Musculoskeletal: no edema, pulses present Neurological: non-focal, moves all 4 limbs Psychiatric: normal affect, A&O x 3 Dx/Plan (1) Esophagitis, CMV Code(s): K20.8 - OTHER ESOPHAGITIS; B25.8 - OTHER CYTOMEGALOVIRAL DISEASES Status: Acute Comment: CMV or Candidal. GI being consulted, For possible EGD, Pt is started on Fluconazole. (2) Colitis, CMV Code(s): A08.39 - OTHER VIRAL ENTERITIS; B25.9 - CYTOMEGALOVIRAL DISEASE, UNSPECIFIED Status: Acute (3) Neutropenia Code(s): D70.9 - NEUTROPENIA, UNSPECIFIED Status: Acute (4) Protein-calorie malnutrition, severe Code(s): E43 - UNSPECIFIED SEVERE PROTEIN-CALORIE MALNUTRITION Status: Chronic (5) Hypokalemia Code(s): E87.6 - HYPOKALEMIA Status: Acute (6) UTI (urinary tract infection) Status: Acute Qualifiers: Urinary tract infection type: acute cystitis Hematuria presence: without hematuria Qualified Code(s): N30.00 - Acute cystitis without hematuria (7) GERD (gastroesophageal reflux disease) Code(s): K21.9 - GASTRO-ESOPHAGEAL REFLUX DISEASE WITHOUT ESOPHAGITIS Status: Chronic Qualifiers: Esophagitis presence: with esophagitis Qualified Code(s): K21.0 - Gastro- esophageal reflux disease with esophagitis Comment: Continue with PPI (8) Hyperlipidemia Code(s): E78.5 - HYPERLIPIDEMIA, UNSPECIFIED Status: Chronic Qualifiers: Hyperlipidemia type: unspecified Qualified Code(s): E78.5 - Hyperlipidemia , unspecified (9) Hypertension Code(s): I10 - ESSENTIAL (PRIMARY) HYPERTENSION Status: Chronic Qualifiers: Hypertension type: essential hypertension Qualified Code(s): I10 - Essential (primary) hypertension (10) Underweight Code(s): R63.6 - UNDERWEIGHT Status: Chronic Comment: advance to reg diet if ok with speech - Plan is on diflucan, prednisone, plaquenil, asp, crestor, coreg -: gentle iv hydration, counselled pt to eat -: echo shows good ef of 55% -: bmp in am -: dc nitropaste, CHRISTIAN to r/o veg/rupture of MV per cardio adv * . Review of Systems - Medications/Allergies Allergies/Adverse Reactions: Allergies Allergy/AdvReac Type Severity Reaction Status Date / Time iron Allergy Severe Rash Verified 10/12/17 23:33 Sulfa (Sulfonamide Allergy Severe Rash Verified 10/12/17 23:33 Antibiotics) magnesium sulfate Allergy Verified 10/12/17 23:33 sulfate Allergy Uncoded 10/12/17 23:33 Medications: Current Medications Acetaminophen (Tylenol) 1,000 mg PO Q6H PRN PRN Reason: Moderate to Severe Pain (6-10) Last Admin: 12/02/17 21:49 Dose: 1,000 mg Hydrocodone Bitart/Acetaminophen (Bono 5/325) 1 tab PO Q4H PRN PRN Reason: Moderate Pain (4-6) Aspirin (Aspirin) 325 mg PO DAILY [facility] Last Admin: 12/03/17 09:50 Dose: 325 mg Calcitriol (Rocaltrol) 0.25 mcg PO DAILY [facility] Last Admin: 12/03/17 09:52 Dose: 0.25 mcg Calcium Carbonate (Tums) 500 mg PO QIDPRN PRN PRN Reason: Heartburn or Indigestion Carvedilol (Coreg) 3.125 mg PO BID [facility] Last Admin: 12/03/17 09:52 Dose: 3.125 mg Clonidine (Catapres) 0.1 mg PO Q6H PRN PRN Reason: Hypertension Famotidine (Pepcid) 20 mg PO 2100 [facility] Last Admin: 12/02/17 21:35 Dose: 20 mg Fluconazole (Diflucan) 100 mg PO 1800 [facility] Last Admin: 12/02/17 18:55 Dose: 100 mg Gabapentin (Neurontin) 300 mg PO BID [facility] Last Admin: 12/03/17 09:51 Dose: 300 mg Hydroxychloroquine Sulfate (Plaquenil) 300 mg PO DAILY [facility] Last Admin: 12/03/17 09:50 Dose: 300 mg Dextrose/Sodium Chloride (D5 1/2 Ns) 1,000 mls @ 100 mls/hr IV .Q10H [facility] Last Admin: 12/03/17 08:00 Dose: Not Given Lactulose (Lactulose) 20 gm PO TID PRN PRN Reason: Constipation Lidocaine (Lidoderm 5% Patch) 1 patch TD 0900 [facility] Last Admin: 12/03/17 09:52 Dose: 1 patch Miscellaneous Medication (Lidocaine Patch Removal) 1 each TOP ASDIR [facility] Nitroglycerin (Nitro-Bid 2% Ointment) 0.5 inch TOP Q8HR [facility] Last Admin: 12/03/17 05:56 Dose: 0.5 inch Nitroglycerin (Nitrostat) 0.4 mg PO Q5MIN PRN PRN Reason: Chest Pain Nystatin (Mycostatin) 200,000 units SSW QID [facility] Last Admin: 12/03/17 09:52 Dose: 200,000 units Ondansetron HCl (Zofran Odt) 4 mg PO Q6H PRN PRN Reason: Nausea/Vomiting Pantoprazole Sodium (Protonix) 40 mg PO Q12HR [facility] Last Admin: 12/03/17 09:50 Dose: 40 mg Prednisone (Prednisone) 25 mg PO QAM-[facility] Last Admin: 12/03/17 09:51 Dose: 25 mg Rosuvastatin Calcium (Crestor) 20 mg PO HS [facility] Last Admin: 12/02/17 21:36 Dose: 20 mg Saccharomyces Boulardii (Florastor) 250 mg PO DAILY [facility] Last Admin: 12/03/17 09:52 Dose: 250 mg Simethicone (Mylicon Chewable) 80 mg PO TID PRN PRN Reason: Dyspepsia Sodium Bicarbonate (Bicarbonate, Sodium) 650 mg PO BID [facility] Last Admin: 12/03/17 09:52 Dose: 650 mg Sodium Chloride (Flush - Normal Saline) 10 ml IVF Q12HR [facility] Last Admin: 12/03/17 09:53 Dose: Not Given Sodium Chloride (Flush - Normal Saline) 10 ml IVF PRN PRN PRN Reason: Saline Flush
--- NOTE | 2017-12-03 13:13 | PRG ---
DATE OF SERVICE: 12/03/2017 SUBJECTIVE: A 72-year-old female being seen for acute kidney injury. The patient denies any nausea, vomiting or chest pain. PHYSICAL EXAMINATION: GENERAL: Patient is awake, alert. VITAL SIGNS: Afebrile, pulse 88, breathing 16, blood pressure 139/75. HEAD/NECK: Normocephalic. Atraumatic. EYES: EOMI. No deformity. EARS: Clear. No ulcers. NOSE: Intact. No lesions. MOUTH: Clear. No discharge. THROAT: Clear. No exudate. LUNGS: Clear. No crackles. CARDIAC: S1, S2. No rub. ABDOMEN: Benign. BS+. GENITALIA/RECTUM: Villanueva absent. BACK/EXTREMITIES: Edema 0+ Ulcer- NEUROLOGICAL: Alert and motor intact. SKIN: Rash- Bruise- LYMPHATICS: Edema- Ulcer- LABORATORY DATA: Show hemoglobin 9.9, sodium 136, potassium 4.3, creatinine was 1.2 yesterday. Today's creatinine is pending. ASSESSMENT AND PLAN:\ 1. CKD Stage II Stable No indication for dialysis at this time. 2. HTn stable. 3. Anemia MTDD
--- NOTE | 2017-12-03 13:13 | PQF ---
CLINICAL DOCUMENTATION IMPROVEMENT CLARIFICATION FORM: ICD-10 Updated PLEASE DO AN ADDENDUM TO THE PROGRESS NOTE WITH ANY DOCUMENTATION UPDATES OR ADDITIONS AND CARRY THROUGH TO DC SUMMARY. THANK YOU. DATE: 12/03/17 ATTN: Dr. Luna Please exercise your independent, professional judgment in responding to the clarification form. Clinical indicators are provided on the bottom of this form for your review Please check appropriate box(es): [ ] SIRS due to non-infectious process (please specify etiology) [ ] with organ dysfunction [ ] without organ dysfunction [x ] Sepsis due to: _CMV infection [ ] Severe sepsis with acute organ dysfunction of: [ ] Localized infection without sepsis [ ] Other diagnosis [ ] Unable to determine In addition, please specify: Present on Admission (POA): [ x] Yes [ ] No [ ] Unable to determine For continuity of documentation, please document condition throughout progress notes and discharge summary. Thank You. CLINICAL INDICATORS - SIGNS / SYMPTOMS / LABS H&P: BP 120/69, HR 110, RESP RATE 18 WBC 1.8 ACUTE KIDNEY INJURY ON CKD 4 LEUKOPENIA PULMONOLOGY CONSULT: SEVERE SEPSIS UROLOGY PN 12/02: DUE TO HER IMMUNOCOMPROMISED STATE, I RESTARTED ZOSYN. ID CONSULTED, WILL LEAVE UP TO DR. GENAO REGARDING ANTIBIOTIC REGIMEN. ID PN 12/02: NEUTROPENIA SECONDARY TO VALCYTE & WORSENING RENAL FUNCTION WHICH IS PROBABLY D/T DECREASED ORAL INTAKE & VOLUME DEPLETION. RISKS: H&P: HX SYSTEMIC LUPUS ERYTHEMATOSUS CMV COLITIS, HX OF LUPUS NEPHRITIS; CKD 3. TREATMENT: CPOE 12/01: ZOSYN 2.[address] GENAO 12/02. (This form is maintained as a part of the permanent medical record) 2014 [employer] All Rights Reserved Ayse Patel RN, BSN [email or web address] Office: [phone] [facility]
--- NOTE | 2017-12-03 13:40 | PRG ---
DATE OF SERVICE: 12/03/2017 SUBJECTIVE: The patient is doing better. She is given instructions on her oropharyngeal dysphagia. She underwent a modified barium swallow yesterday which showed a moderate oropharyngeal dysphagia an d some aspiration with thin liquids. OBJECTIVE: VITAL SIGNS: Temperature 98.2, pulse 76, respiratory rate 16, blood pressure 126/71. CHEST: Clear. CARDIOVASCULAR: Regular rate and rhythm. ABDOMEN: Soft, nontender. LABORATORY DATA: Shows a white blood cell count of 1.2, hemoglobin 9.6, hematocrit 31.6, platelet co unt 143,000. Chemistries show potassium of 4.7. ASSESSMENT: 1. Oropharyngeal dysphagia with some mild aspiration on thin liquids. 2. Severe leukopenia. 3. Systemic lupus erythematosus. 4. History of CMV ulcer. RECOMMENDATIONS: 1. Aspiration precautions per Speech Pathology. 2. Hold on any endoscopy at this time.
[2017-12-03 14:22] LABS: CMV log 10 Quant 2.305 (.)
[2017-12-03] MEDS: cefTRIAXone\\ROCEPHIN 1 GM in Sodium Chloride 0.9% 100 ML IVPB SCH (14:41)
--- NOTE | 2017-12-03 15:11 | PRG ---
DATE OF SERVICE: 12/03/2016 SUBJECTIVE: The patient feeling better. Daughter at bedside. PHYSICAL EXAMINATION: VITAL SIGNS: Stable. CIC results discussed with daughter at bedside, variable from 150-400, occasional void incontinent, usually none. ABDOMEN: Soft, nontender, nondistended. No suprapubic tenderness is appreciated. PERTINENT LABORATORY DATA: Her white count has improved from 0.9-1.2. Renal function stable, creatinine 1.2. C. diff is negative. Urine culture demonstrates Klebsiella resistant to Zosyn, a second gram-negative oswaldo is noted. IMPRESSION AND PLAN: Ms. Burnett is a 72-year-old female with, 1. 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 Follow up CT demonstrates resolution. However, she is on CICs. I started initially her on Zosyn from results of her previous urine culture. This urine culture demonstrates resistance. I will initiate Rocephin. It does not appear that Infectious Disease has addressed urine culture results. Ultimately, I will leave this up to Dr. Phillips; however, Rocephin will be started for now, as daughter states that she is somewhat confused. I do expect colonization with CIC; however, given her immunocompromised state, I do recommend antibiotics for now until final decision by Dr. Phillips. 2. 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 3. Condition guarded. MTDD
--- NOTE | 2017-12-03 17:36 | PDOC.CTH ---
Cardiology Progress Note - Subjective She is doing well. No more chest pain. She has been up to the chair and felt well. - Objective Vital Signs Temp Pulse Resp BP BP Pulse Ox 12/03/17 16:33 97.5 F L 84 16 148/79 H 97 12/03/17 11:22 98.2 F 76 16 126/71 96 12/03/17 10:07 98.3 F 92 18 95 12/03/17 07:39 98.3 F 92 18 165/88 H 95 Admit Weight 77 lb Weight 77 lb 2.589 oz 12/02/17 12/03/17 12/04/17 06:59 06:59 06:59 Intake Total 800 495 Output Total 5638 3141 Balance -180 -5811 - Physical Examination General/Neuro: alert & oriented x3, NAD Neck: no JVD present Lungs: CTA, unlabored respirations Heart: RRR Abdomen: NT/ND - Labs Result Diagrams: 12/02/17 12:33 12/02/17 15:37 Troponin/CKMB CK-MB (CK-2) 7.6 ng/mL (0-6.6) H* 11/30/17 15:08 Troponin I 0.014 ng/mL (< 0.028) 11/30/17 21:35 - Assessment/Plan 1. Neutropenia. 2. Chest pain. 3. Possible vegetation on mitral valve. 4. Dysphagia 5. Hx of CMV esophageal ulcer. 6. ARF on CKD PLAN: - Continue to hold any CHRISTIAN evaluation until neutropenia resolved and EGD performed. - Would treat empirically for possible endocarditis. - Will need stress testing as outpatient in the distant future. - No plan for C due to renal dysfunction.
[2017-12-03] MEDS: Fluconazole 100 MG TAB PO SCH (17:37)
[2017-12-03] MEDS: Rosuvastatin 20 MG TAB PO SCH (20:56)
[2017-12-03] MEDS: Famotidine 20 MG TAB PO SCH (20:57)
[2017-12-03] MEDS: Ondansetron ODT 4 MG TAB PO PRN (21:28)
[2017-12-04 04:51] LABS: PTT 28.3 SEC (22.9-36.1); Prothrombin Time 13.7 SEC (12.0-14.7)
[2017-12-04 06:20] LABS: Acanthocytes MARKED = >16 cells (100X) (None Seen); Anisocytosis SLIGHT = 6-15 cells (100X) (0-5/hpf); Band 4 % (5-11); Hemoglobin 9.5 g/dL (12.0-16.0); Lymphocytes 17 % (21-51); MDiff Complete? YES; Mean Corpuscular Hemoglobin 31.7 pg (27.0-31.0); Mean Platelet Volume 9.1 fL (7.4-10.4); Monocytes 24 % (0-10); Neutrophil 54 % (42-75); Nucleated RBC 8 % (0); Platelet Count 155 thou/uL (130-400); RBC Distribution Width 19.6 % (11.5-14.5); Reactive Lymphocytes 1 % (0-10); Red Blood Cell (RBC) Count 2.98 mill/uL (4.20-5.40); Schistocytes MODERATE= 6-15 cells (100X) (0-1/hpf); White Blood Cell (WBC) Count 2.2 thou/uL (4.8-10.8)
[2017-12-04] MEDS: Carvedilol 3.125 MG TAB PO SCH ×2 (06:20→21:18)
[2017-12-04] MEDS: Dextrose 5 %-0.45 % NaCl 1,000 ML IV SCH ×3 (06:20→21:24)
[2017-12-04] MEDS: Nystatin 500,000 UNITS/5 ML UDCUP SSW SCH ×4 (09:00→21:18)
[2017-12-04 09:02] LABS: Anion Gap 11 mmol/L (10-20); BUN (Urea Nitrogen) 26 mg/dL (9.8-20.1); Calc. Creatinine Clearance 31 mL/min (70-130); Calcium 7.5 mg/dL (7.8-10.44); Carbon Dioxide 19 mmol/L (23-31); Chloride 107 mmol/L (98-107); Estimated GFR-MDRD 60; Glucose 100 mg/dL (80-115); Potassium 3.5 mmol/L (3.5-5.1); Sodium 133 mmol/L (136-145)
--- NOTE | 2017-12-04 09:17 | PRG ---
DATE OF SERVICE: 12/04/2017 SUBJECTIVE: This is a 72-year-old female being seen for acute kidney injury. The patient denies any nausea, vomiting or chest pain. The patient states she feels better. PHYSICAL EXAMINATION: GENERAL: Patient is awake, alert. VITAL SIGNS: Afebrile, pulse 78, breathing 16, blood pressure 129/76. OBJECTIVE: See above. Awake, alert, in no acute distress. GENERAL APPEARANCE AND MENTAL STATUS: Fair. HEAD/NECK: Normocephalic. Atraumatic. EYES: EOMI. No deformity. EARS: Clear. No ulcers. NOSE: Intact. No lesions. MOUTH: Clear. No discharge. THROAT: Clear. No exudate. LUNGS: Clear. No crackles. CARDIAC: S1, S2. No rub. ABDOMEN: Benign. BS+. GENITALIA/RECTUM: Villanueva absent. BACK/EXTREMITIES: Edema 0+ Ulcer- NEUROLOGICAL: Alert and motor intact. SKIN: Rash- Bruise- LYMPHATICS: Edema- Ulcer- LABORATORY: Pending. Last creatinine was 1.3 on 12/02/2017. ASSESSMENT AND RECOMMENDATIONS: 1. Acute kidney injury with chronic kidney disease. Will recheck labs. 2. Chronic kidney disease stage 3, stable. 3. Hypertension, stable. 4. Anemia. Follow hemoglobin. No urgent indication for dialysis.
--- NOTE | 2017-12-04 10:22 | PDOC.CTH ---
Cardiology Progress Note - Subjective Currently not having any more chest pain for now. - Objective Vital Signs Temp Pulse Resp BP Pulse Ox 12/04/17 07:56 98.0 F 78 16 94 L 12/04/17 07:17 98.0 F 78 16 145/75 H 94 L Admit Weight 77 lb Weight 77 lb 2.589 oz 12/03/17 12/04/17 12/05/17 06:59 06:59 06:59 Intake Total 495 2420 Output Total 2091 750 Balance -1596 1670 - Physical Examination General/Neuro: alert & oriented x3, NAD Neck: no JVD present Lungs: CTA, unlabored respirations Heart: RRR Abdomen: NT/ND Extremities: other: (no edema.) - Telemetry Telemetry Rhythm: NSR - Labs Result Diagrams: 12/04/17 03:53 12/04/17 03:50 Troponin/CKMB CK-MB (CK-2) 7.6 ng/mL (0-6.6) H* 11/30/17 15:08 Troponin I 0.014 ng/mL (< 0.028) 11/30/17 21:35 - Assessment/Plan 1. Neutropenia. 2. Chest pain. 3. Possible vegetation on mitral valve. 4. Dysphagia 5. Hx of CMV esophageal ulcer. 6. ARF on CKD, improved. PLAN: - Continue to hold any CHRISTIAN evaluation until neutropenia resolved and EGD performed. - Will need stress testing as outpatient in the distant future. - Renal function improved.
[2017-12-04] MEDS ORDERED: Sodium Bicarbonate 2.5 MEQ/5 ML VIAL ONE (10:57)
[2017-12-04] MEDS ORDERED: Midazolam HCl 2 mg/2 ml Vial ONE (10:58)
[2017-12-04] MEDS ORDERED: Fentanyl 100 MCG/2 ML VIAL ONE (10:58)
--- NOTE | 2017-12-04 12:04 | PDOC.PN ---
- Subjective Encounter Start Date: 12/04/17 Encounter Start Time: 10:15 Subjective: awake, is going for bm biopsy -: no sob or abd pain, daughter in room - Objective Resuscitation Status: Resuscitation Status FULL:Full Resuscitation MAR Reviewed: Yes Vital Signs & Weight: Vital Signs (12 hours) Temp Pulse Resp BP Pulse Ox 12/04/17 07:56 98.0 F 78 16 94 L 12/04/17 07:17 98.0 F 78 16 145/75 H 94 L Weight Admit Weight 77 lb Weight 77 lb 2.589 oz Most Recent Monitor Data Heart Rate from ECG 78 NIBP 115/60 NIBP BP-Mean 78 Respiration from ECG 12 SpO2 94 I&O: 12/03/17 12/04/17 12/05/17 06:59 06:59 06:59 Intake Total 495 2420 Output Total 2091 750 Balance -1596 1670 Result Diagrams: 12/04/17 03:53 12/04/17 03:50 Phys Exam - Physical Examination HEENT: PERRLA, moist MMs Neck: no JVD, supple Respiratory: no wheezing, no rales Cardiovascular: RRR, no significant murmur Gastrointestinal: soft, non-tender, positive bowel sounds Musculoskeletal: no edema, pulses present Neurological: non-focal, moves all 4 limbs Psychiatric: A&O x 3 Dx/Plan (1) Esophagitis, CMV Code(s): K20.8 - OTHER ESOPHAGITIS; B25.8 - OTHER CYTOMEGALOVIRAL DISEASES Status: Acute Comment: CMV or Candidal. on Fluconazole. (2) Colitis, CMV Code(s): A08.39 - OTHER VIRAL ENTERITIS; B25.9 - CYTOMEGALOVIRAL DISEASE, UNSPECIFIED Status: Acute (3) Neutropenia Code(s): D70.9 - NEUTROPENIA, UNSPECIFIED Status: Resolved (4) Protein-calorie malnutrition, severe Code(s): E43 - UNSPECIFIED SEVERE PROTEIN-CALORIE MALNUTRITION Status: Chronic (5) Hypokalemia Code(s): E87.6 - HYPOKALEMIA Status: Resolved (6) UTI (urinary tract infection) Status: Acute Qualifiers: Urinary tract infection type: acute cystitis Hematuria presence: without hematuria Qualified Code(s): N30.00 - Acute cystitis without hematuria (7) GERD (gastroesophageal reflux disease) Code(s): K21.9 - GASTRO-ESOPHAGEAL REFLUX DISEASE WITHOUT ESOPHAGITIS Status: Chronic Qualifiers: Esophagitis presence: with esophagitis Qualified Code(s): K21.0 - Gastro- esophageal reflux disease with esophagitis Comment: Continue with PPI (8) Hyperlipidemia Code(s): E78.5 - HYPERLIPIDEMIA, UNSPECIFIED Status: Chronic Qualifiers: Hyperlipidemia type: unspecified Qualified Code(s): E78.5 - Hyperlipidemia , unspecified (9) Hypertension Code(s): I10 - ESSENTIAL (PRIMARY) HYPERTENSION Status: Chronic Qualifiers: Hypertension type: essential hypertension Qualified Code(s): I10 - Essential (primary) hypertension (10) Underweight Code(s): R63.6 - UNDERWEIGHT Status: Chronic Comment: advance to reg diet if ok with speech - Plan is on fluconazole, ceftriaxone for uti -: prognosis guarded -: speech to advance diet as tolerated -: for bm biopsy today -: egd/hever per specialists advice, wbc is 2.2 with 54% neutrophils * . Review of Systems - Medications/Allergies Allergies/Adverse Reactions: Allergies Allergy/AdvReac Type Severity Reaction Status Date / Time iron Allergy Severe Rash Verified 10/12/17 23:33 Sulfa (Sulfonamide Allergy Severe Rash Verified 10/12/17 23:33 Antibiotics) magnesium sulfate Allergy Verified 10/12/17 23:33 sulfate Allergy Uncoded 10/12/17 23:33 Medications: Current Medications Acetaminophen (Tylenol) 1,000 mg PO Q6H PRN PRN Reason: Moderate to Severe Pain (6-10) Last Admin: 12/02/17 21:49 Dose: 1,000 mg Hydrocodone Bitart/Acetaminophen ([place] 5/325) 1 tab PO Q4H PRN PRN Reason: Moderate Pain (4-6) Aspirin (Aspirin) 325 mg PO DAILY [facility] Last Admin: 12/03/17 09:50 Dose: 325 mg Calcitriol (Rocaltrol) 0.25 mcg PO DAILY [facility] Last Admin: 12/03/17 09:52 Dose: 0.25 mcg Calcium Carbonate (Tums) 500 mg PO QIDPRN PRN PRN Reason: Heartburn or Indigestion Carvedilol (Coreg) 3.125 mg PO BID [facility] Last Admin: 12/04/17 06:20 Dose: 3.125 mg Clonidine (Catapres) 0.1 mg PO Q6H PRN PRN Reason: Hypertension Famotidine (Pepcid) 20 mg PO 2100 [facility] Last Admin: 12/03/17 20:57 Dose: 20 mg Fluconazole (Diflucan) 100 mg PO 1800 [facility] Last Admin: 12/03/17 17:37 Dose: 100 mg Gabapentin (Neurontin) 300 mg PO BID [facility] Last Admin: 12/03/17 20:57 Dose: 300 mg Hydroxychloroquine Sulfate (Plaquenil) 300 mg PO DAILY [facility] Last Admin: 12/03/17 09:50 Dose: 300 mg Dextrose/Sodium Chloride (D5 1/2 Ns) 1,000 mls @ 100 mls/hr IV .Q10H [facility] Last Admin: 12/04/17 06:20 Dose: 1,000 mls Ceftriaxone Sodium 1 gm/ (Sodium Chloride) 100 mls @ 200 mls/hr IVPB Q24HR [facility] Last Admin: 12/03/17 14:41 Dose: 100 mls Lactulose (Lactulose) 20 gm PO TID PRN PRN Reason: Constipation Lidocaine (Lidoderm 5% Patch) 1 patch TD 0900 [facility] Last Admin: 12/03/17 09:52 Dose: 1 patch Miscellaneous Medication (Lidocaine Patch Removal) 1 each TOP ASDIR [facility] Nitroglycerin (Nitrostat) 0.4 mg PO Q5MIN PRN PRN Reason: Chest Pain Nystatin (Mycostatin) 200,000 units SSW QID [facility] Last Admin: 12/03/17 20:56 Dose: 200,000 units Ondansetron HCl (Zofran Odt) 4 mg PO Q6H PRN PRN Reason: Nausea/Vomiting Last Admin: 12/03/17 21:28 Dose: 4 mg Pantoprazole Sodium (Protonix) 40 mg PO Q12HR [facility] Last Admin: 12/03/17 20:57 Dose: 40 mg Prednisone (Prednisone) 25 mg PO QAM-WM [facility] Last Admin: 12/03/17 09:51 Dose: 25 mg Rosuvastatin Calcium (Crestor) 20 mg PO HS [facility] Last Admin: 12/03/17 20:56 Dose: 20 mg Saccharomyces Boulardii (Florastor) 250 mg PO DAILY [facility] Last Admin: 12/03/17 09:52 Dose: 250 mg Simethicone (Mylicon Chewable) 80 mg PO TID PRN PRN Reason: Dyspepsia Sodium Bicarbonate (Bicarbonate, Sodium) 650 mg PO BID [facility] Last Admin: 12/03/17 20:56 Dose: 650 mg Sodium Chloride (Flush - Normal Saline) 10 ml IVF Q12HR [facility] Last Admin: 12/03/17 20:58 Dose: Not Given Sodium Chloride (Flush - Normal Saline) 10 ml IVF PRN PRN PRN Reason: Saline Flush
[2017-12-04] MEDS: Sodium Bicarbonate Tab 325 MG TAB PO SCH ×2 (12:28→21:18)
[2017-12-04] MEDS: predniSONE 50 MG TAB PO SCH (12:28)
[2017-12-04] MEDS: Saccharomyces boulardii 250 MG CAP PO SCH (12:28)
[2017-12-04] MEDS: Aspirin 325 MG TAB PO SCH (12:28)
[2017-12-04] MEDS: Lidocaine 5% Patch TD SCH (12:29)
[2017-12-04] MEDS: Calcitriol 0.25 MCG CAP PO SCH (12:29)
[2017-12-04] MEDS: Gabapentin 300 MG CAP PO SCH ×2 (12:29→21:18)
[2017-12-04] MEDS: Hydroxychloroquine Sulfate 200 MG TAB PO SCH (12:29)
--- NOTE | 2017-12-04 12:48 | PRG ---
DATE OF SERVICE: 12/04/2017 SUBJECTIVE: The patient is resting comfortably, daughter at bedside. OBJECTIVE: VITAL SIGNS: Stable. PVR clean intermittent catheterization variable from 150-250 mL. ABDOMEN: Soft, nontender, nondistended. PERTINENT LABORATORY DATA: White count 2.2, hemoglobin 9.5, platelet 155. Renal function stable at 0.93. Urine culture demonstrates Klebsiella and E. coli, currently on Rocephin. Final sensitivities pending. IMPRESSION AND PLAN: 1. Ms. Burnett is a 72-year-old female with history of CMV esophagitis, gastritis, Klebsiella emphy sematous cystitis with history of urinary retention, which began with onset of cystitis emphysematous . Follow up CT demonstrated resolution currently on clean intermittent catheterizations. She is on Rocephin due to immunocompromised state based on recent urine culture. Final sensitivities pending. I will defer to Dr. Phillips regarding final antibiotic regimen. 2. 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
[2017-12-04] MEDS: cefTRIAXone\\ROCEPHIN 1 GM in Sodium Chloride 0.9% 100 ML IVPB SCH (14:57)
--- NOTE | 2017-12-04 15:52 | CT ---
CT GUIDED PERCUTANEOUS BONE BIOPSY: CLINICAL HISTORY: Neutropenia. PROCEDURE: Informed consent was obtained. The patient was escorted to the procedural suite and placed in the pr one position. The patient's pelvic osseous structures were localized for bone marrow aspirate and bi opsy approach. The left ilium was selected from a posterior approach. Standard sterile prepping and draping was then performed with buffered 1% Lidocaine. The patient was provided conscious sedation and monitored continuously throughout the procedure, in stable condition, by the radiology nurse (Kevin Retana). A small skin incision was made, through which a standard bone biopsy trocar needle was advanced into the left ilium, via a posterior approach. Bone marrow aspirate was performed, yielding approximately 7 mL of marrow, provided to the animal laboratory helper. Subsequent to the bone deyanira ow aspirate, a core biopsy was performed. All the devices were then removed, and hemostasis was achi eved. Post procedural imaging revealed no evidence of complications. Imaging was stored for documen tation. IMPRESSION: Technically successful CT guided bone marrow aspirate and core biopsy of left ilium. Pathology resul ts are pending. POS: [place]
[2017-12-04] MEDS: Fluconazole 100 MG TAB PO SCH (17:41)
--- NOTE | 2017-12-04 17:50 | PRG ---
DATE OF SERVICE: 12/04/2017 SUBJECTIVE: The patient is somewhat sore after a bone marrow biopsy today. Her swallowing is same w ithout change. OBJECTIVE: VITAL SIGNS: Temperature 97.9, pulse 78, respiratory rate 18, blood pressure 142/78. CHEST: Clear. CARDIOVASCULAR: Regular rate and rhythm. ABDOMEN: Benign. LABORATORY DATA: Shows a sodium 133, CO2 of 19, BUN 26, calcium 7.5. White blood cell count is 2.2, hemoglobin is 9.5, hematocrit 30.5 with a platelet count of 155. ASSESSMENT: 1. Dysphagia. 2. Oropharyngeal dysphagia. 3. History of Cytomegalovirus esophageal ulcer. 4. Severe leukopenia seems to be improving. 5. Lupus. RECOMMENDATIONS: We will plan on performing upper endoscopy tomorrow.
--- NOTE | 2017-12-04 19:37 | PRG ---
DATE OF SERVICE: 12/04/2017 SUBJECTIVE: Having worsening pain in the left upper abdominal region, which started about an hour ag o. She thinks that this is related to her constipation. She has had this similar pain in the past w hen she gets constipated, some odynophagia. No vomiting. OBJECTIVE: VITAL SIGNS: T-max 98.9, blood pressure 130/78, pulse 92, respirations 16-18, O2 sat 95%. GENERAL: Multiple areas of bruising in the anterior chest region, chronically ill-appearing, in some distress from pain. CARDIOVASCULAR: S1, S2, regular rate. LUNGS: Clear. ABDOMEN: Pretty much soft with moderate tenderness left upper quadrant. No ascites. Bowel sounds a re diminished. She is able to move extremities. LABORATORY DATA: White cell count up to 2.2, hemoglobin 9.5, MCV 102, platelets 155, 54% neutrophils , 4% bands, total neutrophil count about 1200. Creatinine is better at 0.93. Repeated CMV DNA Ultra Quant 202. Bone marrow biopsy has been completed and interpretation is pending. ASSESSMENT: SLE on immunosuppressive medication. Chronic renal insufficiency stage 3. CMV gastroen teritis biopsy proven with improvement after oral Valcyte due to neutropenia usually secondary to epi sodes of decrease in GFR associated with volume depletion and likely Valcyte accumulation. She is off Valcyte at this time. She probably will need repeat colonoscopy to follow up on the lesio ns that she had before secondary to CMV and she is going to have an EGD as well and to follow up on t he symptoms of odynophagia that probably led to the volume depletion from decreased oral intake.
[2017-12-04] MEDS: Acetaminophen 500 MG TAB PO PRN (21:17)
[2017-12-04] MEDS: Famotidine 20 MG TAB PO SCH (21:18)
[2017-12-04] MEDS: Rosuvastatin 20 MG TAB PO SCH (21:18)
[2017-12-04] MEDS: Lidocaine Patch Removal TOP SCH (21:18)
[2017-12-05] MEDS: Carvedilol 3.125 MG TAB PO SCH ×2 (06:00→20:28)
--- NOTE | 2017-12-05 08:16 | PRG ---
DATE OF SERVICE: 12/05/2017 SUBJECTIVE: The patient resting comfortably, daughter at bedside. OBJECTIVE: VITAL SIGNS: Stable. CIC amount has been variable from 125-200 to 300. There was a delay in catheterization, as she went down for imaging with 800 mL of post -void residual. The patient states that she did not have sensation to void with this large amount of postvoid residual. ABDOMEN: Soft, nontender, nondistended. LABORATORY DATA: Urine culture demonstrates Klebsiella and E. coli, sensitive to cephalosporins, currently on Rocephin. Creatinine is 0.9. White count today is 2.2. IMPRESSION AND PLAN: Ms. Burnett is a 72-year-old female with, 1. History of Cytomegalovirus esophagitis colitis. 2. History of recurrent emphysematous cystitis, resolved with chronic indwelling Villanueva and appropriate antibiotic regimen. 3. History of urinary retention, exacerbated by emphysematous cystitis of new onset, currently managed with clean intermittent catheterization. I did place her on Rocephin, as her urine culture demonstrates bacteria and clean intermittent catheterization. As previous, I do not usually recommend antibiotic treatment for clean intermittent catheterization in patient that is colonized; however, given her immunocompromised state, I do recommend Rocephin to continue. She may be transitioned to Omnicef when discharged. Certainly, if her white blood count normalizes, she can come off her antibiotic regimen. Infectious disease is following. She is scheduled for EGD today. I anticipate patient will most likely stay in-house over the weekend. She does have a followup appointment with me as an outpatient, 12/10/2017 at 2:15. I do not forsee an acute urologic event in the next few days. Dr. Avilez is covering me if there are any acute issues. If patient in-house still next week, will follow up. Call if any questions or concerns. [facility]
[2017-12-05 08:17] LABS: Band 18 % (5-11); Burr Cells MODERATE= 6-15 cells (100X) (0-1/hpf); Hemoglobin 9.6 g/dL (12.0-16.0); Lymphocytes 22 % (21-51); MDiff Complete? YES; Mean Corpuscular Hemoglobin 31.3 pg (27.0-31.0); Mean Platelet Volume 8.4 fL (7.4-10.4); Monocytes 8 % (0-10); Neutrophil 52 % (42-75); Nucleated RBC 3 % (0); Platelet Count 149 thou/uL (130-400); Polychromasia SLIGHT = 2-3 cells (100X) (0-2/hpf); RBC Distribution Width 19.9 % (11.5-14.5); Red Blood Cell (RBC) Count 3.08 mill/uL (4.20-5.40); Schistocytes MODERATE= 6-15 cells (100X) (0-1/hpf); White Blood Cell (WBC) Count 1.3 thou/uL (4.8-10.8)
[2017-12-05] MEDS: predniSONE 50 MG TAB PO SCH (08:44)
[2017-12-05] MEDS: Calcitriol 0.25 MCG CAP PO SCH (08:45)
[2017-12-05] MEDS: Gabapentin 300 MG CAP PO SCH ×2 (08:45→20:28)
[2017-12-05] MEDS: Nystatin 500,000 UNITS/5 ML UDCUP SSW SCH ×4 (08:46→20:36)
[2017-12-05] MEDS: Hydroxychloroquine Sulfate 200 MG TAB PO SCH (08:46)
[2017-12-05] MEDS: Lidocaine 5% Patch TD SCH (08:46)
[2017-12-05] MEDS: Saccharomyces boulardii 250 MG CAP PO SCH (08:46)
[2017-12-05] MEDS: Aspirin 325 MG TAB PO SCH (08:46)
[2017-12-05] MEDS: Sodium Bicarbonate Tab 325 MG TAB PO SCH ×2 (08:46→20:27)
[2017-12-05] MEDS: Dextrose 5 %-0.45 % NaCl 1,000 ML IV SCH ×2 (08:47→16:23)
--- NOTE | 2017-12-05 12:51 | CT ---
CT GUIDED PERCUTANEOUS BONE BIOPSY: CLINICAL HISTORY: Neutropenia. PROCEDURE: Informed consent was obtained. The patient was escorted to the procedural suite and placed in the pr one position. The patient's pelvic osseous structures were localized for bone marrow aspirate and bi opsy approach. The left ilium was selected from a posterior approach. Standard sterile prepping and draping was then performed with buffered 1% Lidocaine. The patient was provided conscious sedation and monitored continuously throughout the procedure, in stable condition, by the radiology nurse (Kevin Retana). A small skin incision was made, through which a standard bone biopsy trocar needle was advanced into the left ilium, via a posterior approach. Bone marrow aspirate was performed, yielding approximately 7 mL of marrow, provided to the pathology laboratory director. Subsequent to the bone deyanira ow aspirate, a core biopsy was performed. All the devices were then removed, and hemostasis was achi eved. Post procedural imaging revealed no evidence of complications. Imaging was stored for documen tation. IMPRESSION: Technically successful CT guided bone marrow aspirate and core biopsy of left ilium. Pathology resul ts are pending.
--- NOTE | 2017-12-05 13:05 | PDOC.PN ---
- Subjective Encounter Start Date: 12/05/17 Encounter Start Time: 09:45 Subjective: no sob, is npo for egd this afternoon - Objective Resuscitation Status: Resuscitation Status FULL:Full Resuscitation MAR Reviewed: Yes Vital Signs & Weight: Vital Signs (12 hours) Temp Pulse Resp BP BP Pulse Ox 12/05/17 11:00 98.0 F 76 18 151/77 H 95 12/05/17 08:00 98.1 F 79 16 12/05/17 07:27 98.1 F 79 16 150/72 H 94 L 12/05/17 05:22 97.8 F 82 16 149/74 H 95 Weight Admit Weight 77 lb Weight 77 lb 2.589 oz Most Recent Monitor Data Heart Rate from ECG 78 NIBP 115/60 NIBP BP-Mean 78 Respiration from ECG 12 SpO2 94 I&O: 12/04/17 12/05/17 12/06/17 06:59 06:59 06:59 Intake Total 2420 2540 Output Total 750 3345 Balance 1670 -805 Result Diagrams: 12/05/17 04:19 12/04/17 03:50 Phys Exam - Physical Examination HEENT: PERRLA, moist MMs Neck: no JVD, supple Respiratory: no wheezing, no rales Cardiovascular: RRR, no significant murmur Gastrointestinal: soft, non-tender, positive bowel sounds Musculoskeletal: no edema, pulses present Neurological: non-focal, moves all 4 limbs Psychiatric: normal affect, A&O x 3 Dx/Plan (1) Esophagitis, CMV Code(s): K20.8 - OTHER ESOPHAGITIS; B25.8 - OTHER CYTOMEGALOVIRAL DISEASES Status: Acute Comment: CMV or Candidal. on Fluconazole. (2) Colitis, CMV Code(s): A08.39 - OTHER VIRAL ENTERITIS; B25.9 - CYTOMEGALOVIRAL DISEASE, UNSPECIFIED Status: Acute (3) Neutropenia Code(s): D70.9 - NEUTROPENIA, UNSPECIFIED Status: Resolved (4) Protein-calorie malnutrition, severe Code(s): E43 - UNSPECIFIED SEVERE PROTEIN-CALORIE MALNUTRITION Status: Chronic (5) Hypokalemia Code(s): E87.6 - HYPOKALEMIA Status: Resolved (6) UTI (urinary tract infection) Status: Acute Qualifiers: Urinary tract infection type: acute cystitis Hematuria presence: without hematuria Qualified Code(s): N30.00 - Acute cystitis without hematuria (7) GERD (gastroesophageal reflux disease) Code(s): K21.9 - GASTRO-ESOPHAGEAL REFLUX DISEASE WITHOUT ESOPHAGITIS Status: Chronic Qualifiers: Esophagitis presence: with esophagitis Qualified Code(s): K21.0 - Gastro- esophageal reflux disease with esophagitis Comment: Continue with PPI (8) Hyperlipidemia Code(s): E78.5 - HYPERLIPIDEMIA, UNSPECIFIED Status: Chronic Qualifiers: Hyperlipidemia type: unspecified Qualified Code(s): E78.5 - Hyperlipidemia , unspecified (9) Hypertension Code(s): I10 - ESSENTIAL (PRIMARY) HYPERTENSION Status: Chronic Qualifiers: Hypertension type: essential hypertension Qualified Code(s): I10 - Essential (primary) hypertension (10) Underweight Code(s): R63.6 - UNDERWEIGHT Status: Chronic Comment: advance to reg diet if ok with speech - Plan on iv fluid, may dc if tolerating oral diet -: for EGD today, may do CHRISTIAN at the same setting -: had left ilium bone marrow bx by IR -: on diflucan (esophagitis) and ceftriaxone (UTI) -: prednisone, plaquenil, will need rehab/swing bed * . Review of Systems - Medications/Allergies Allergies/Adverse Reactions: Allergies Allergy/AdvReac Type Severity Reaction Status Date / Time iron Allergy Severe Rash Verified 10/12/17 23:33 Sulfa (Sulfonamide Allergy Severe Rash Verified 10/12/17 23:33 Antibiotics) magnesium sulfate Allergy Verified 10/12/17 23:33 sulfate Allergy Uncoded 10/12/17 23:33 Medications: Current Medications Acetaminophen (Tylenol) 1,000 mg PO Q6H PRN PRN Reason: Moderate to Severe Pain (6-10) Last Admin: 12/04/17 21:17 Dose: 1,000 mg Hydrocodone Bitart/Acetaminophen ([place] 5/325) 1 tab PO Q4H PRN PRN Reason: Moderate Pain (4-6) Aspirin (Aspirin) 325 mg PO DAILY [facility] Last Admin: 12/05/17 08:46 Dose: Not Given Calcitriol (Rocaltrol) 0.25 mcg PO DAILY [facility] Last Admin: 12/05/17 08:45 Dose: 0.25 mcg Calcium Carbonate (Tums) 500 mg PO QIDPRN PRN PRN Reason: Heartburn or Indigestion Carvedilol (Coreg) 3.125 mg PO BID [facility] Last Admin: 12/05/17 06:00 Dose: 3.125 mg Clonidine (Catapres) 0.1 mg PO Q6H PRN PRN Reason: Hypertension Famotidine (Pepcid) 20 mg PO 2100 [facility] Last Admin: 12/04/17 21:18 Dose: 20 mg Fluconazole (Diflucan) 100 mg PO 1800 [facility] Last Admin: 12/04/17 17:41 Dose: 100 mg Gabapentin (Neurontin) 300 mg PO BID [facility] Last Admin: 12/05/17 08:45 Dose: 300 mg Hydroxychloroquine Sulfate (Plaquenil) 300 mg PO DAILY [facility] Last Admin: 12/05/17 08:46 Dose: 300 mg Dextrose/Sodium Chloride (D5 1/2 Ns) 1,000 mls @ 100 mls/hr IV .Q10H [facility] Last Admin: 12/05/17 08:47 Dose: 1,000 mls Ceftriaxone Sodium 1 gm/ (Sodium Chloride) 100 mls @ 200 mls/hr IVPB Q24HR [facility] Last Admin: 12/04/17 14:57 Dose: 100 mls Lactulose (Lactulose) 20 gm PO TID PRN PRN Reason: Constipation Lidocaine (Lidoderm 5% Patch) 1 patch TD 0900 [facility] Last Admin: 12/05/17 08:46 Dose: 1 patch Miscellaneous Medication (Lidocaine Patch Removal) 1 each TOP 2100 [facility] Last Admin: 12/04/17 21:18 Dose: Not Given Nitroglycerin (Nitrostat) 0.4 mg PO Q5MIN PRN PRN Reason: Chest Pain Nystatin (Mycostatin) 200,000 units SSW QID [facility] Last Admin: 12/05/17 08:46 Dose: 200,000 units Ondansetron HCl (Zofran Odt) 4 mg PO Q6H PRN PRN Reason: Nausea/Vomiting Last Admin: 12/03/17 21:28 Dose: 4 mg Pantoprazole Sodium (Protonix) 40 mg PO Q12HR [facility] Last Admin: 12/05/17 08:46 Dose: 40 mg Prednisone (Prednisone) 25 mg PO QAM-WM [facility] Last Admin: 12/05/17 08:44 Dose: 25 mg Rosuvastatin Calcium (Crestor) 20 mg PO HS [facility] Last Admin: 12/04/17 21:18 Dose: 20 mg Saccharomyces Boulardii (Florastor) 250 mg PO DAILY [facility] Last Admin: 12/05/17 08:46 Dose: 250 mg Simethicone (Mylicon Chewable) 80 mg PO TID PRN PRN Reason: Dyspepsia Sodium Bicarbonate (Bicarbonate, Sodium) 650 mg PO BID [facility] Last Admin: 12/05/17 08:46 Dose: 650 mg Sodium Chloride (Flush - Normal Saline) 10 ml IVF Q12HR [facility] Last Admin: 12/05/17 08:47 Dose: Not Given Sodium Chloride (Flush - Normal Saline) 10 ml IVF PRN PRN PRN Reason: Saline Flush
[2017-12-05] MEDS ORDERED: PROPOFOL 200 MG/20 ML VIAL ONE (13:32)
[2017-12-05] MEDS ORDERED: Lidocaine 1% PF 5 ML VIAL ONE (13:32)
--- NOTE | 2017-12-05 14:06 | PDOC.CTH ---
Cardiology Progress Note - Subjective No new issues. No new complaints. Will have EGD today. - Objective Vital Signs Temp Pulse Resp BP BP Pulse Ox 12/05/17 11:00 98.0 F 76 18 151/77 H 95 12/05/17 08:00 98.1 F 79 16 12/05/17 07:27 98.1 F 79 16 150/72 H 94 L 12/05/17 05:22 97.8 F 82 16 149/74 H 95 Admit Weight 77 lb Weight 77 lb 2.589 oz 12/04/17 12/05/17 12/06/17 06:59 06:59 06:59 Intake Total 2420 2540 Output Total 750 3345 Balance 1670 -805 - Physical Examination General/Neuro: alert & oriented x3, NAD Neck: no JVD present Lungs: CTA, unlabored respirations Heart: RRR Abdomen: NT/ND Extremities: other: (no edema) - Labs Result Diagrams: 12/05/17 04:19 12/04/17 03:50 Troponin/CKMB CK-MB (CK-2) 7.6 ng/mL (0-6.6) H* 11/30/17 15:08 Troponin I 0.014 ng/mL (< 0.028) 11/30/17 21:35 - Assessment/Plan 1. Neutropenia. 2. Chest pain. 3. Possible vegetation on mitral valve. 4. Dysphagia 5. Hx of CMV esophageal ulcer. 6. ARF on CKD, improved. PLAN: - Continue to hold any CHRISTIAN evaluation until neutropenia resolved and EGD findings reviewed. Having EGD today. - Will need stress testing as outpatient in the distant future. - Renal function improved.
[2017-12-05] MEDS ORDERED: Promethazine HCl 25 MG/ML VIAL IM PRN (15:19)
[2017-12-05] MEDS ORDERED: Promethazine HCl 25 MG/ML VIAL SLOW IVP PRN (15:19)
[2017-12-05] MEDS ORDERED: Ondansetron HCl/PF 4 MG/2 ML Vial IVP PRN (15:19)
[2017-12-05] MEDS: Fluconazole 100 MG TAB PO SCH (16:22)
[2017-12-05] MEDS: cefTRIAXone\\ROCEPHIN 1 GM in Sodium Chloride 0.9% 100 ML IVPB SCH (16:22)
[2017-12-05] MEDS: Ondansetron ODT 4 MG TAB PO PRN (16:53)
[2017-12-05] MEDS: Acetaminophen 500 MG TAB PO PRN (16:54)
--- NOTE | 2017-12-05 17:02 | OP ---
PREOPERATIVE DIAGNOSIS: Dysphagia. PROCEDURE: After informed consent was obtained, the patient was placed in the left lateral decubitus position. Anesthesia was administered per the Anesthesia Department. Forward-viewing diagnostic en doscope was inserted into esophagus under direct visualization with ease and passed to the second por tion of the duodenum with ease. Second portion of duodenum and duodenal bulb were normal. The pylor us, antrum, body, fundus, and cardia were normal. Retroflexion of stomach was normal. The esophagus showed circumferential erosion 34-31 cm from the incisors. This was biopsied. This did not have th e appearance of his CMV ulcer. There was distal esophagus between this erosion and the GE junction t hat showed no abnormalities. Upon withdrawal of the scope, it was noted that there was some dilatati on to the proximal esophagus with passage of the diagnostic endoscope. No further dilatation was ent ertained because of her profound leukopenia. ASSESSMENT: 1. Circumferential esophageal erosion 34-31 cm from the incisors -- status post biopsy; does not hav e the appearance of a CMV ulcer. 2. Proximal esophageal stricture -- dilated with passage of the diagnostic endoscope, no further dil atation done because of profound leukopenia. 3. Otherwise, normal esophagogastroduodenoscopy. RECOMMENDATIONS: 1. Biopsy results. 2. Rule out CMV. 3. Hold on transesophageal echo until esophageal dilatation can be performed. 4. Soft diet.
[2017-12-05] MEDS: Rosuvastatin 20 MG TAB PO SCH (20:27)
[2017-12-05] MEDS: Famotidine 20 MG TAB PO SCH (20:28)
[2017-12-05] MEDS: Epoetin (ESRD) 20,000 UNITS/ML SC SCH (20:28)
[2017-12-05] MEDS: Lidocaine Patch Removal TOP SCH (20:39)
--- NOTE | 2017-12-05 23:37 | OP ---
CANCELLED/INCOMPLETE REPORT
[2017-12-06] MEDS: Ondansetron ODT 4 MG TAB PO PRN (00:43)
[2017-12-06] MEDS: Dextrose 5 %-0.45 % NaCl 1,000 ML IV SCH ×3 (00:44→11:27)
[2017-12-06 06:36] LABS: Acanthocytes MARKED = >16 cells (100X) (None Seen); Anisocytosis SLIGHT = 6-15 cells (100X) (0-5/hpf); Band 6 % (5-11); Burr Cells SLIGHT = 2-5 cells (100X) (0-1/hpf); Hemoglobin 9.7 g/dL (12.0-16.0); Large Platelets SLIGHT; Lymphocytes 14 % (21-51); MDiff Complete? YES; Mean Corpuscular HGB CONC 31.9 g/dL (32.0-36.0); Mean Corpuscular Hemoglobin 31.7 pg (27.0-31.0); Mean Corpuscular Volume 99.5 fl (81.0-99.0); Mean Platelet Volume 9.5 fL (7.4-10.4); Monocytes 19 % (0-10); Neutrophil 61 % (42-75); PLT Morphology Comment Appears Adequate; Platelet Count 167 thou/uL (130-400); RBC Distribution Width 21.2 % (11.5-14.5); Red Blood Cell (RBC) Count 3.06 mill/uL (4.20-5.40); Schistocytes MODERATE= 6-15 cells (100X) (0-1/hpf); White Blood Cell (WBC) Count 1.2 thou/uL (4.8-10.8)
[2017-12-06] MEDS: Nystatin 500,000 UNITS/5 ML UDCUP SSW SCH ×4 (08:19→20:55)
[2017-12-06] MEDS: Saccharomyces boulardii 250 MG CAP PO SCH (08:22)
[2017-12-06] MEDS: Calcitriol 0.25 MCG CAP PO SCH (08:22)
[2017-12-06] MEDS: Aspirin 325 MG TAB PO SCH (08:22)
[2017-12-06] MEDS: Sodium Bicarbonate Tab 325 MG TAB PO SCH ×2 (08:22→20:54)
[2017-12-06] MEDS: Hydroxychloroquine Sulfate 200 MG TAB PO SCH (08:22)
[2017-12-06] MEDS: Gabapentin 300 MG CAP PO SCH ×2 (08:23→20:55)
[2017-12-06] MEDS: Carvedilol 3.125 MG TAB PO SCH ×2 (08:23→20:54)
[2017-12-06] MEDS: predniSONE 50 MG TAB PO SCH (08:24)
[2017-12-06] MEDS: Lidocaine 5% Patch TD SCH (08:25)
--- NOTE | 2017-12-06 11:07 | PDOC.PN ---
- Subjective Encounter Start Date: 12/06/17 Encounter Start Time: 09:30 Subjective: no sob, feels better -: no new complaitns -: daughter at bedside - Objective Resuscitation Status: Resuscitation Status FULL:Full Resuscitation MAR Reviewed: Yes Vital Signs & Weight: Vital Signs (12 hours) Temp Pulse Resp BP BP Pulse Ox 12/06/17 08:15 158/80 H 12/06/17 08:00 98.5 F 86 16 95 12/06/17 07:17 98.5 F 86 16 158/80 H 95 12/05/17 23:57 98.5 F 80 20 137/72 92 L Weight Admit Weight 77 lb Weight 77 lb 2.589 oz Most Recent Monitor Data Heart Rate from ECG 78 NIBP 115/60 NIBP BP-Mean 78 Respiration from ECG 12 SpO2 94 I&O: 12/05/17 12/06/17 12/07/17 06:59 06:59 06:59 Intake Total 2540 4340 Output Total 3345 950 Balance -805 3390 Result Diagrams: 12/06/17 04:00 12/04/17 03:50 Phys Exam - Physical Examination HEENT: PERRLA, moist MMs Neck: no JVD, supple Respiratory: no wheezing, no rales Cardiovascular: RRR, no significant murmur Gastrointestinal: soft, non-tender, positive bowel sounds Musculoskeletal: no edema, pulses present Neurological: non-focal, moves all 4 limbs Psychiatric: A&O x 3 Dx/Plan (1) Esophagitis, CMV Code(s): K20.8 - OTHER ESOPHAGITIS; B25.8 - OTHER CYTOMEGALOVIRAL DISEASES Status: Acute Comment: has circumferential ulcer with prox esophageal mild stricture (2) Colitis, CMV Code(s): A08.39 - OTHER VIRAL ENTERITIS; B25.9 - CYTOMEGALOVIRAL DISEASE, UNSPECIFIED Status: Suspected (3) Neutropenia Code(s): D70.9 - NEUTROPENIA, UNSPECIFIED Status: Resolved (4) Protein-calorie malnutrition, severe Code(s): E43 - UNSPECIFIED SEVERE PROTEIN-CALORIE MALNUTRITION Status: Chronic (5) Hypokalemia Code(s): E87.6 - HYPOKALEMIA Status: Resolved (6) UTI (urinary tract infection) Status: Acute Qualifiers: Urinary tract infection type: acute cystitis Hematuria presence: without hematuria Qualified Code(s): N30.00 - Acute cystitis without hematuria (7) GERD (gastroesophageal reflux disease) Code(s): K21.9 - GASTRO-ESOPHAGEAL REFLUX DISEASE WITHOUT ESOPHAGITIS Status: Chronic Qualifiers: Esophagitis presence: with esophagitis Qualified Code(s): K21.0 - Gastro- esophageal reflux disease with esophagitis Comment: Continue with PPI (8) Hyperlipidemia Code(s): E78.5 - HYPERLIPIDEMIA, UNSPECIFIED Status: Chronic Qualifiers: Hyperlipidemia type: unspecified Qualified Code(s): E78.5 - Hyperlipidemia , unspecified (9) Hypertension Code(s): I10 - ESSENTIAL (PRIMARY) HYPERTENSION Status: Chronic Qualifiers: Hypertension type: essential hypertension Qualified Code(s): I10 - Essential (primary) hypertension (10) Underweight Code(s): R63.6 - UNDERWEIGHT Status: Chronic Comment: advance to reg diet if ok with speech - Plan hemostable -: await bm bx and esophageal biopsy results -: will need rehab for dc plan -: PT to amb as tolerated, reduce iv fluids, encourage po intake -: on prednisone, plaquenil, ceftriaxone, diflucan * . Review of Systems - Medications/Allergies Allergies/Adverse Reactions: Allergies Allergy/AdvReac Type Severity Reaction Status Date / Time iron Allergy Severe Rash Verified 10/12/17 23:33 Sulfa (Sulfonamide Allergy Severe Rash Verified 10/12/17 23:33 Antibiotics) magnesium sulfate Allergy Verified 10/12/17 23:33 sulfate Allergy Uncoded 10/12/17 23:33 Medications: Current Medications Acetaminophen (Tylenol) 1,000 mg PO Q6H PRN PRN Reason: Moderate to Severe Pain (6-10) Last Admin: 12/05/17 16:54 Dose: 1,000 mg Hydrocodone Bitart/Acetaminophen ([place] 5/325) 1 tab PO Q4H PRN PRN Reason: Moderate Pain (4-6) Aspirin (Aspirin) 325 mg PO DAILY [facility] Last Admin: 12/06/17 08:22 Dose: 325 mg Calcitriol (Rocaltrol) 0.25 mcg PO DAILY [facility] Last Admin: 12/06/17 08:22 Dose: 0.25 mcg Calcium Carbonate (Tums) 500 mg PO QIDPRN PRN PRN Reason: Heartburn or Indigestion Carvedilol (Coreg) 3.125 mg PO BID [facility] Last Admin: 12/06/17 08:23 Dose: 3.125 mg Clonidine (Catapres) 0.1 mg PO Q6H PRN PRN Reason: Hypertension Epoetin Matt (Procrit) 20,000 units SC 1700 [facility] Last Admin: 12/05/17 20:28 Dose: 20,000 units Famotidine (Pepcid) 20 mg PO 2100 [facility] Last Admin: 12/05/17 20:28 Dose: 20 mg Fluconazole (Diflucan) 100 mg PO 1800 [facility] Last Admin: 12/05/17 16:22 Dose: 100 mg Gabapentin (Neurontin) 300 mg PO BID [facility] Last Admin: 12/06/17 08:23 Dose: 300 mg Hydroxychloroquine Sulfate (Plaquenil) 300 mg PO DAILY [facility] Last Admin: 12/06/17 08:22 Dose: 300 mg Dextrose/Sodium Chloride (D5 1/2 Ns) 1,000 mls @ 100 mls/hr IV .Q10H [facility] Last Admin: 12/06/17 10:21 Dose: 1,000 mls Ceftriaxone Sodium 1 gm/ (Sodium Chloride) 100 mls @ 200 mls/hr IVPB Q24HR [facility] Last Admin: 12/05/17 16:22 Dose: 100 mls Lactulose (Lactulose) 20 gm PO TID PRN PRN Reason: Constipation Lidocaine (Lidoderm 5% Patch) 1 patch TD 0900 [facility] Last Admin: 12/06/17 08:25 Dose: 1 patch Megestrol Acetate (Megace) 40 mg PO TID [facility] Miscellaneous Medication (Lidocaine Patch Removal) 1 each TOP 2100 [facility] Last Admin: 12/05/17 20:39 Dose: Not Given Nitroglycerin (Nitrostat) 0.4 mg PO Q5MIN PRN PRN Reason: Chest Pain Nystatin (Mycostatin) 200,000 units SSW QID [facility] Last Admin: 12/06/17 08:19 Dose: 200,000 units Ondansetron HCl (Zofran Odt) 4 mg PO Q6H PRN PRN Reason: Nausea/Vomiting Last Admin: 12/06/17 00:43 Dose: 4 mg Pantoprazole Sodium (Protonix) 40 mg PO Q12HR [facility] Last Admin: 12/06/17 08:22 Dose: 40 mg Prednisone (Prednisone) 25 mg PO QAM[facility] Last Admin: 12/06/17 08:24 Dose: 25 mg Rosuvastatin Calcium (Crestor) 20 mg PO HS [facility] Last Admin: 12/05/17 20:27 Dose: 20 mg Saccharomyces Boulardii (Florastor) 250 mg PO DAILY [facility] Last Admin: 12/06/17 08:22 Dose: 250 mg Simethicone (Mylicon Chewable) 80 mg PO TID PRN PRN Reason: Dyspepsia Sodium Bicarbonate (Bicarbonate, Sodium) 650 mg PO BID [facility] Last Admin: 12/06/17 08:22 Dose: 650 mg Sodium Chloride (Flush - Normal Saline) 10 ml IVF Q12HR [facility] Last Admin: 12/06/17 09:50 Dose: Not Given Sodium Chloride (Flush - Normal Saline) 10 ml IVF PRN PRN PRN Reason: Saline Flush
--- NOTE | 2017-12-06 13:26 | PRG ---
DATE OF SERVICE: 12/06/2017 SUBJECTIVE: The patient reports her swallowing is a little better. She is not having any fever or c hest pain. OBJECTIVE: VITAL SIGNS: Temperature 98.5, pulse 86, respiratory rate 16, blood pressure 158/80. CHEST: Clear. CARDIOVASCULAR: Regular rate and rhythm. ABDOMEN: Soft and nontender without organomegaly or masses. LABORATORY DATA: Shows white blood cell count of 1.2, hemoglobin 9.7, and platelet count 167. ASSESSMENT: 1. Esophageal stricture. 2. Esophageal erosion. 3. Severe leukopenia. 4. Lupus. 5. History of CMV esophageal ulcer. RECOMMENDATIONS: 1. We will need to wait for leukopenia to resolve prior to esophageal dilatation. 2. Await histopathology.
[2017-12-06] MEDS: Megestrol Acetate 40 MG TAB PO SCH ×2 (14:06→20:54)
[2017-12-06] MEDS: Acetaminophen 500 MG TAB PO PRN (14:06)
[2017-12-06] MEDS: cefTRIAXone\\ROCEPHIN 1 GM in Sodium Chloride 0.9% 100 ML IVPB SCH (17:13)
[2017-12-06] MEDS: Fluconazole 100 MG TAB PO SCH (17:14)
[2017-12-06] MEDS: Epoetin (ESRD) 20,000 UNITS/ML SC SCH (20:08)
[2017-12-06] MEDS: Famotidine 20 MG TAB PO SCH (20:54)
[2017-12-06] MEDS: Rosuvastatin 20 MG TAB PO SCH (20:54)
[2017-12-06] MEDS: Lidocaine Patch Removal TOP SCH (20:55)
[2017-12-07] MEDS: Dextrose 5 %-0.45 % NaCl 1,000 ML IV SCH (05:45)
[2017-12-07] MEDS: Sodium Bicarbonate Tab 325 MG TAB PO SCH ×2 (07:49→20:32)
[2017-12-07] MEDS: predniSONE 50 MG TAB PO SCH (07:50)
[2017-12-07] MEDS: Saccharomyces boulardii 250 MG CAP PO SCH (07:50)
[2017-12-07] MEDS: Gabapentin 300 MG CAP PO SCH ×2 (07:51→20:33)
[2017-12-07] MEDS: Lidocaine 5% Patch TD SCH (07:51)
[2017-12-07] MEDS: Megestrol Acetate 40 MG TAB PO SCH ×3 (07:51→20:33)
[2017-12-07] MEDS: Carvedilol 3.125 MG TAB PO SCH ×2 (07:51→20:32)
[2017-12-07] MEDS: Calcitriol 0.25 MCG CAP PO SCH (07:51)
--- NOTE | 2017-12-07 10:54 | PDOC.PN ---
- Subjective Encounter Start Date: 12/07/17 Encounter Start Time: 09:00 Subjective: awake, is trying to eat her breakfast -: no nausea - Objective Resuscitation Status: Resuscitation Status FULL:Full Resuscitation MAR Reviewed: Yes Vital Signs & Weight: Vital Signs (12 hours) Temp Pulse Resp BP BP Pulse Ox 12/07/17 10:00 146/76 H 12/07/17 08:00 97.8 F 88 18 91 L 12/07/17 07:34 97.8 F 88 18 183/96 H 94 L 12/07/17 00:00 97.8 F 80 20 164/77 H 94 L Weight Admit Weight 77 lb Weight 77 lb 2.589 oz Most Recent Monitor Data Heart Rate from ECG 78 NIBP 115/60 NIBP BP-Mean 78 Respiration from ECG 12 SpO2 94 I&O: 12/06/17 12/07/17 12/08/17 06:59 06:59 06:59 Intake Total 4340 2100 Output Total 950 3982 Balance 3390 -1882 Result Diagrams: 12/06/17 04:00 12/04/17 03:50 Phys Exam - Physical Examination HEENT: PERRLA, moist MMs Neck: no JVD, supple Respiratory: no wheezing, no rales Cardiovascular: RRR, no significant murmur Gastrointestinal: soft, non-tender, no distention, positive bowel sounds Musculoskeletal: no edema, pulses present Neurological: non-focal, moves all 4 limbs Psychiatric: A&O x 3 Dx/Plan (1) Esophagitis, CMV Code(s): K20.8 - OTHER ESOPHAGITIS; B25.8 - OTHER CYTOMEGALOVIRAL DISEASES Status: Acute Comment: has circumferential ulcer with prox esophageal mild stricture (2) Colitis, CMV Code(s): A08.39 - OTHER VIRAL ENTERITIS; B25.9 - CYTOMEGALOVIRAL DISEASE, UNSPECIFIED Status: Suspected (3) Neutropenia Code(s): D70.9 - NEUTROPENIA, UNSPECIFIED Status: Resolved (4) Protein-calorie malnutrition, severe Code(s): E43 - UNSPECIFIED SEVERE PROTEIN-CALORIE MALNUTRITION Status: Chronic (5) Hypokalemia Code(s): E87.6 - HYPOKALEMIA Status: Resolved (6) UTI (urinary tract infection) Status: Acute Qualifiers: Urinary tract infection type: acute cystitis Hematuria presence: without hematuria Qualified Code(s): N30.00 - Acute cystitis without hematuria (7) GERD (gastroesophageal reflux disease) Code(s): K21.9 - GASTRO-ESOPHAGEAL REFLUX DISEASE WITHOUT ESOPHAGITIS Status: Chronic Qualifiers: Esophagitis presence: with esophagitis Qualified Code(s): K21.0 - Gastro- esophageal reflux disease with esophagitis Comment: Continue with PPI (8) Hyperlipidemia Code(s): E78.5 - HYPERLIPIDEMIA, UNSPECIFIED Status: Chronic Qualifiers: Hyperlipidemia type: unspecified Qualified Code(s): E78.5 - Hyperlipidemia , unspecified (9) Hypertension Code(s): I10 - ESSENTIAL (PRIMARY) HYPERTENSION Status: Chronic Qualifiers: Hypertension type: essential hypertension Qualified Code(s): I10 - Essential (primary) hypertension (10) Underweight Code(s): R63.6 - UNDERWEIGHT Status: Chronic Comment: advance to reg diet if ok with speech - Plan is on ceftriaxone and diflucan -: await tom and esophageal biopsy results -: on megace, sod bicarb, prednisone, asp, coreg -: lidocaine tts and norco prn -: Mighty shake and prostat tid, will need rehab, labs in am * . Pt to amb with PT, so far has just stood by the bed. Review of Systems - Medications/Allergies Allergies/Adverse Reactions: Allergies Allergy/AdvReac Type Severity Reaction Status Date / Time iron Allergy Severe Rash Verified 10/12/17 23:33 Sulfa (Sulfonamide Allergy Severe Rash Verified 10/12/17 23:33 Antibiotics) magnesium sulfate Allergy Verified 10/12/17 23:33 sulfate Allergy Uncoded 10/12/17 23:33 Medications: Current Medications Acetaminophen (Tylenol) 1,000 mg PO Q6H PRN PRN Reason: Moderate to Severe Pain (6-10) Last Admin: 12/06/17 14:06 Dose: 1,000 mg Hydrocodone Bitart/Acetaminophen ([place] 5/325) 1 tab PO Q4H PRN PRN Reason: Moderate Pain (4-6) Aspirin (Aspirin Chewable) 81 mg PO DAILY [facility] Last Admin: 12/07/17 09:53 Dose: 81 mg Calcitriol (Rocaltrol) 0.25 mcg PO DAILY [facility] Last Admin: 12/07/17 07:51 Dose: 0.25 mcg Calcium Carbonate (Tums) 500 mg PO QIDPRN PRN PRN Reason: Heartburn or Indigestion Carvedilol (Coreg) 3.125 mg PO BID [facility] Last Admin: 12/07/17 07:51 Dose: 3.125 mg Clonidine (Catapres) 0.1 mg PO Q6H PRN PRN Reason: Hypertension Famotidine (Pepcid) 20 mg PO 2100 [facility] Last Admin: 12/06/17 20:54 Dose: 20 mg Fluconazole (Diflucan) 100 mg PO 1800 [facility] Last Admin: 12/06/17 17:14 Dose: 100 mg Gabapentin (Neurontin) 300 mg PO BID [facility] Last Admin: 12/07/17 07:51 Dose: 300 mg Ceftriaxone Sodium 1 gm/ (Sodium Chloride) 100 mls @ 200 mls/hr IVPB Q24HR [facility] Last Admin: 12/06/17 17:13 Dose: 100 mls Lactulose (Lactulose) 20 gm PO TID PRN PRN Reason: Constipation Lidocaine (Lidoderm 5% Patch) 1 patch TD 0900 [facility] Last Admin: 12/07/17 07:51 Dose: 1 patch Megestrol Acetate (Megace) 40 mg PO TID [facility] Last Admin: 12/07/17 07:51 Dose: 40 mg Metoprolol Succinate (Toprol Xl) 100 mg PO DAILY [facility] Metoprolol Succinate (Toprol Xl) 100 mg PO NOW [facility] Stop: 12/07/17 11:00 Last Admin: 12/07/17 10:42 Dose: 100 mg Miscellaneous Medication (Lidocaine Patch Removal) 1 each TOP 2100 [facility] Last Admin: 12/06/17 20:55 Dose: Not Given Nitroglycerin (Nitrostat) 0.4 mg PO Q5MIN PRN PRN Reason: Chest Pain Ondansetron HCl (Zofran Odt) 4 mg PO Q6H PRN PRN Reason: Nausea/Vomiting Last Admin: 12/06/17 00:43 Dose: 4 mg Pantoprazole Sodium (Protonix) 40 mg PO Q12HR [facility] Last Admin: 12/07/17 07:50 Dose: 40 mg Prednisone (Prednisone) 25 mg PO QAM-WM [facility] Last Admin: 12/07/17 07:50 Dose: 25 mg Rosuvastatin Calcium (Crestor) 20 mg PO HS [facility] Last Admin: 12/06/17 20:54 Dose: 20 mg Saccharomyces Boulardii (Florastor) 250 mg PO DAILY [facility] Last Admin: 12/07/17 07:50 Dose: 250 mg Simethicone (Mylicon Chewable) 80 mg PO TID PRN PRN Reason: Dyspepsia Sodium Bicarbonate (Bicarbonate, Sodium) 650 mg PO BID [facility] Last Admin: 12/07/17 07:49 Dose: 650 mg Sodium Chloride (Flush - Normal Saline) 10 ml IVF Q12HR [facility] Last Admin: 12/07/17 07:52 Dose: 10 ml Sodium Chloride (Flush - Normal Saline) 10 ml IVF PRN PRN PRN Reason: Saline Flush
--- NOTE | 2017-12-07 11:20 | PRG ---
DATE OF SERVICE: 12/07/2017 SUBJECTIVE: The patient is able to tolerate a pureed diet; however, she does not like the pureed clement d. I will change her to a regular diet, and I have instructed the daughters to cut things up finally . OBJECTIVE: VITAL SIGNS: Temperature 97.8, pulse 88, respiratory rate 18, blood pressure 183/96. CHEST: Clear. CARDIOVASCULAR: Regular rate and rhythm. ABDOMEN: Benign. LABORATORY DATA: Shows a white blood cell count 1.2 and hemoglobin 9.7. ASSESSMENT: 1. Dysphagia. 2. Esophageal stricture. 3. Esophageal ulcer. 4. Severe leukopenia. RECOMMENDATIONS: 1. Await improvement in leukopenia. 2. Change diet from pureed to regular.
[2017-12-07] MEDS: cefTRIAXone\\ROCEPHIN 1 GM in Sodium Chloride 0.9% 100 ML IVPB SCH (15:44)
[2017-12-07] MEDS: Fluconazole 100 MG TAB PO SCH (18:03)
[2017-12-07] MEDS: Famotidine 20 MG TAB PO SCH (20:33)
[2017-12-07] MEDS: Rosuvastatin 20 MG TAB PO SCH (20:33)
[2017-12-07] MEDS: Lidocaine Patch Removal TOP SCH (20:57)
[2017-12-08 05:09] LABS: Hemoglobin 9.5 g/dL (12.0-16.0); Platelet Count 219 thou/uL (130-400)
--- NOTE | 2017-12-08 08:41 | PRG ---
DATE OF SERVICE: 12/08/2017 SUBJECTIVE: The patient had an episode of bleeding yesterday. She had some clots in her stool. She said that morning she had a bowel movement. She denies any abdominal pain. She denies any nausea, vomiting. Her swallowing seems to be better. She had undergone an EGD and colonoscopy by Dr. Johnston for refractory diarrhea in August of this year and this showed scattered ulcers in the rectum, sig moid and ascending and transverse colons. OBJECTIVE: VITAL SIGNS: Temperature 98.6, pulse 81, respiratory rate 18, blood pressure 160/76. CHEST: Clear. CARDIOVASCULAR: Regular rate and rhythm. ABDOMEN: Soft, nontender, without organomegaly or masses. Bowel sounds are present. LABORATORY DATA: Platelet counts 219, hemoglobin 9.5, hematocrit 29.9. Chemistry showed BUN 26. So dium 133, calcium 7.5. ASSESSMENT: 1. Dysphagia. 2. Esophageal stricture. 3. Esophageal ulcer. 4. Severe leukopenia. 5. Hematochezia. 6. Lupus. RECOMMENDATIONS: 1. Await improvement in leukopenia. 2. Serial H&H. 3. Laxative of choice. 4. Bleeding could be from EGD and biopsies that were performed, although the blood was red and clots . The patient had a colonoscopy in August that did not show any polyps or malignancy and she had s ome scattered CMV ulcers. I doubt this is the source of her bleeding now. We will continue to follo w it. No plan for repeat colonoscopy unless bleeding worsens.
[2017-12-08] MEDS: Saccharomyces boulardii 250 MG CAP PO SCH (09:38)
[2017-12-08] MEDS: Sodium Bicarbonate Tab 325 MG TAB PO SCH ×2 (09:38→20:19)
[2017-12-08] MEDS: Megestrol Acetate 40 MG TAB PO SCH ×3 (09:38→20:18)
[2017-12-08] MEDS: Calcitriol 0.25 MCG CAP PO SCH (09:38)
[2017-12-08] MEDS: Gabapentin 300 MG CAP PO SCH ×2 (09:39→20:18)
[2017-12-08] MEDS: predniSONE 50 MG TAB PO SCH (09:39)
[2017-12-08] MEDS: Lidocaine 5% Patch TD SCH (09:39)
[2017-12-08] MEDS: Carvedilol 3.125 MG TAB PO SCH ×2 (09:39→20:18)
--- NOTE | 2017-12-08 12:33 | PDOC.PN ---
- Subjective Encounter Start Date: 12/08/17 Encounter Start Time: 12:35 Patient seen and examined, daughter at bedside, states that the patient is not eating as much but does get hungry. Patient also states she feels weak and has been bruising more so than before. No other complaints or issues, all questions answered. - Objective Resuscitation Status: Resuscitation Status FULL:Full Resuscitation Vital Signs & Weight: Vital Signs (12 hours) Temp Pulse Resp BP BP Pulse Ox 12/08/17 08:00 98.6 F 81 18 93 L 12/08/17 07:52 98.6 F 81 18 160/76 H 93 L 12/08/17 06:24 174/78 H Weight Admit Weight 77 lb Weight 77 lb 2.589 oz Most Recent Monitor Data Heart Rate from ECG 78 NIBP 115/60 NIBP BP-Mean 78 Respiration from ECG 12 SpO2 94 I&O: 12/07/17 12/08/17 12/09/17 06:59 06:59 06:59 Intake Total 2100 390 Output Total 3982 2997 Balance -9527 -1262 Result Diagrams: 12/08/17 04:19 12/04/17 03:50 Phys Exam - Physical Examination Constitutional: NAD HEENT: PERRLA, moist MMs, sclera anicteric, TM's clear Neck: no nodes, no JVD, supple, full ROM Respiratory: no wheezing, no rales, no rhonchi Cardiovascular: RRR, no significant murmur, no rub Gastrointestinal: soft, non-tender, no distention, positive bowel sounds Musculoskeletal: no edema, pulses present Neurological: non-focal, normal sensation Psychiatric: normal affect, A&O x 3 Skin: no rash, normal turgor Deviation from normal: bruises noted on chest, right scalp and extremities Dx/Plan (1) Chest pain Code(s): R07.9 - CHEST PAIN, UNSPECIFIED Status: Acute Comment: Cardiology is Seeing pt, Recommeded CHRISTIAN, will kendall follow, continue on BB. Persistant Chest pain, No stress test offerd at this time, Will discuss with cardiology as pt is high risk with LDL >200. (2) Acute worsening of stage 3 chronic kidney disease Code(s): N18.3 - CHRONIC KIDNEY DISEASE, STAGE 3 (MODERATE) Status: Acute Comment: Improved with Villanueva drainage, avoid nephrotoxic meds and contrast media (3) Back pain Code(s): M54.9 - DORSALGIA, UNSPECIFIED Status: Acute Qualifiers: Back pain location: low back pain (4) Esophagitis, CMV Code(s): K20.8 - OTHER ESOPHAGITIS; B25.8 - OTHER CYTOMEGALOVIRAL DISEASES Status: Acute Comment: has circumferential ulcer with prox esophageal mild stricture (5) Chronic anemia Code(s): D64.9 - ANEMIA, UNSPECIFIED Status: Chronic (6) GERD (gastroesophageal reflux disease) Code(s): K21.9 - GASTRO-ESOPHAGEAL REFLUX DISEASE WITHOUT ESOPHAGITIS Status: Chronic Qualifiers: Esophagitis presence: with esophagitis Qualified Code(s): K21.0 - Gastro- esophageal reflux disease with esophagitis Comment: Continue with PPI (7) Hyperlipidemia Code(s): E78.5 - HYPERLIPIDEMIA, UNSPECIFIED Status: Chronic Qualifiers: Hyperlipidemia type: unspecified Qualified Code(s): E78.5 - Hyperlipidemia , unspecified (8) Hypertension Code(s): I10 - ESSENTIAL (PRIMARY) HYPERTENSION Status: Chronic Qualifiers: Hypertension type: essential hypertension Qualified Code(s): I10 - Essential (primary) hypertension (9) Physical deconditioning Code(s): R53.81 - OTHER MALAISE Status: Chronic Comment: PT/OT for mobilization, back to rehab after acute conditions stabilized (10) SLE (systemic lupus erythematosus) Code(s): M32.9 - SYSTEMIC LUPUS ERYTHEMATOSUS, UNSPECIFIED Status: Chronic Qualifiers: Systemic lupus erythematosus type: unspecified Comment: Stable, no acute flare - Plan * patient advised to eat food and also drink the nutritional substitute shakes which will be made available to her with her diet * will obtain CRP, ESR and Anti-DsDNA levels to check for lupus activity, hold plaquanil and cellcept for now, may need to consider neupogen if WBC count drops any further * BP stable * pain controlled * continue current plan of care otherwise with no changes * case and plan d/w patient and daughter at length, they understand and agree with this plan.
[2017-12-08 13:27] LABS: INR-International Normal Ratio 1.1; PTT 25.7 SEC (22.9-36.1); Prothrombin Time 14.1 SEC (12.0-14.7)
--- NOTE | 2017-12-08 14:08 | PDOC.CTH ---
Cardiology Progress Note - Subjective Awake, denies any new complaints. Denies chest pain, shortness of breath, N/V/ D. Relates poor appetite. No overnight events. BP improved c/ addition of metoprolol. - Objective Vital Signs Temp Pulse Resp BP BP Pulse Ox 12/08/17 08:00 98.6 F 81 18 93 L 12/08/17 07:52 98.6 F 81 18 160/76 H 93 L 12/08/17 06:24 174/78 H Admit Weight 77 lb Weight 77 lb 2.589 oz 12/07/17 12/08/17 12/09/17 06:59 06:59 06:59 Intake Total 2100 390 Output Total 0677 0889 370 Balance -8269 -7905 -438 - Physical Examination General/Neuro: alert & oriented x3, NAD Neck: no JVD present Lungs: CTA, unlabored respirations Heart: RRR Abdomen: NT/ND - Labs Result Diagrams: 12/08/17 04:19 12/04/17 03:50 Troponin/CKMB CK-MB (CK-2) 7.6 ng/mL (0-6.6) H* 11/30/17 15:08 Troponin I 0.014 ng/mL (< 0.028) 11/30/17 21:35 - Assessment/Plan 1. Neutropenia 2. Chest pain-currently chest pain free 3. ? vegetation on MV-plan for CHRISTIAN p/ esophageal dilatation 4. Dysphagia 5. Hx of CMV esophageal ulcer. 6. ARF on CKD, improved.
[2017-12-08] MEDS: cefTRIAXone\\ROCEPHIN 1 GM in Sodium Chloride 0.9% 100 ML IVPB SCH (16:06)
[2017-12-08] MEDS: Fluconazole 100 MG TAB PO SCH (17:41)
[2017-12-08] MEDS: Famotidine 20 MG TAB PO SCH (20:18)
[2017-12-08] MEDS: Rosuvastatin 20 MG TAB PO SCH (20:18)
[2017-12-08] MEDS: Lidocaine Patch Removal TOP SCH (20:27)
[2017-12-09 05:26] LABS: Anion Gap 12 mmol/L (10-20); BUN (Urea Nitrogen) 13 mg/dL (9.8-20.1); Calc. Creatinine Clearance 39 mL/min (70-130); Calcium 7.6 mg/dL (7.8-10.44); Carbon Dioxide 21 mmol/L (23-31); Chloride 109 mmol/L (98-107); Estimated GFR-MDRD 78; Glucose 81 mg/dL (80-115); Potassium 3.1 mmol/L (3.5-5.1); Sodium 139 mmol/L (136-145)
[2017-12-09 06:49] LABS: Hemoglobin 9.2 g/dL (12.0-16.0); Mean Corpuscular Hemoglobin 29.7 pg (27.0-31.0); Mean Platelet Volume 9.3 fL (7.4-10.4); Platelet Count 224 thou/uL (130-400); White Blood Cell (WBC) Count 1.9 thou/uL (4.8-10.8)
--- NOTE | 2017-12-09 07:51 | PRG ---
DATE OF SERVICE: 12/09/2017 SUBJECTIVE: The patient's daughter at bedside, continues to feel weak and fatigued OBJECTIVE: VITAL SIGNS: Stable. She is afebrile. GENITOURINARY: CIC/voiding diary reviewed at bedside demonstrating PVR variable from minimal to an average 200-300 mL. Of note, she had largest PVR at 900 mL few days ago with no significant sensation to void. Continues to be on clean intermittent catheterization. ABDOMEN: Soft, nontender. No suprapubic tenderness. PERTINENT LABORATORY DATA: White count is 1.9, hemoglobin is 9.2, platelet 224 , creatinine stable at 0.74, potassium 3.1. IMPRESSION AND PLAN: Ms. Burnett is a 72-year-old female with, 1. History of chronic kidney disease. 2. 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 3. History of emphysematous cystitis with urinary retention. 4. Recent bacteriuria with clean intermittent catheterization. 5. Leukopenia with deconditioned status. The patient continues to be on Rocephin. I will leave antibiotic regimen at the discretion of Infectious Disease. The patient currently on clean intermittent catheterization, urine culture demonstrates bacteria. She is currently on Rocephin due to immunocompromised state. Ultimately, I will defer to Dr. Phillips regarding outpatient antibiotic regimen. She continues to be in house due to deconditioned status and medical workup. From a urologic perspective, the patient may be transitioned to rehabilitation, care home facility when medically stable with continuation of clean intermittent catheterization around the clock every 6 hours. We will see p.r.n., we will extend followup appointment. Call if any questions and concerns. KADEN
[2017-12-09] MEDS: Lidocaine 5% Patch TD SCH (09:34)
[2017-12-09] MEDS: Acetaminophen 500 MG TAB PO PRN (09:42)
[2017-12-09] MEDS: Carvedilol 3.125 MG TAB PO SCH ×2 (09:43→20:30)
[2017-12-09] MEDS: Megestrol Acetate 40 MG TAB PO SCH ×3 (09:43→20:31)
[2017-12-09] MEDS: Calcitriol 0.25 MCG CAP PO SCH (09:43)
[2017-12-09] MEDS: Sodium Bicarbonate Tab 325 MG TAB PO SCH ×2 (09:43→20:30)
[2017-12-09] MEDS: Saccharomyces boulardii 250 MG CAP PO SCH (09:43)
[2017-12-09] MEDS: predniSONE 50 MG TAB PO SCH (09:43)
[2017-12-09] MEDS: Gabapentin 300 MG CAP PO SCH ×2 (09:43→20:30)
[2017-12-09 11:10] LABS: Acanthocytes MODERATE= 6-15 cells (100X) (None Seen); Band 20 % (5-11); Large Platelets SLIGHT; Lymphocytes 8 % (21-51); MDiff Complete? YES; Macrocytosis MODERATE=16-30 cells (100X) (0-5/hpf); Monocytes 16 % (0-10); Myelocyte 8 % (0-0); Neutrophil 42 % (42-75); Nucleated RBC 18 % (0); PLT Morphology Comment Appears Adequate; Polychromasia MODERATE = 3-4 cells (100X) (0-2/hpf); Reactive Lymphocytes 6 % (0-10); Schistocytes MODERATE= 6-15 cells (100X) (0-1/hpf)
--- NOTE | 2017-12-09 12:40 | PDOC.PN ---
- Subjective Encounter Start Date: 12/09/17 Encounter Start Time: 12:38 - Objective Resuscitation Status: Resuscitation Status FULL:Full Resuscitation Vital Signs & Weight: Vital Signs (12 hours) Temp Pulse Resp BP Pulse Ox 12/09/17 09:54 165/71 H 12/09/17 08:00 98.5 F 72 18 94 L Weight Admit Weight 77 lb Weight 77 lb 2.589 oz Most Recent Monitor Data Heart Rate from ECG 78 NIBP 115/60 NIBP BP-Mean 78 Respiration from ECG 12 SpO2 94 I&O: 12/08/17 12/09/17 12/10/17 06:59 06:59 06:59 Intake Total 390 0 Output Total 7589 920 450 Balance -2607 -920 -450 Result Diagrams: 12/09/17 04:05 12/09/17 04:05 Phys Exam - Physical Examination Constitutional: NAD HEENT: PERRLA, moist MMs, sclera anicteric Neck: no nodes, no JVD, supple Respiratory: no wheezing, no rales, no rhonchi Cardiovascular: RRR, no significant murmur, no rub Gastrointestinal: soft, non-tender, no distention, positive bowel sounds Musculoskeletal: no edema, pulses present Neurological: non-focal, normal sensation Psychiatric: normal affect, A&O x 3 Skin: no rash, normal turgor Dx/Plan (1) Chest pain Code(s): R07.9 - CHEST PAIN, UNSPECIFIED Status: Acute Comment: Cardiology is Seeing pt, Recommeded CHRISTIAN, will closley follow, continue on BB. Persistant Chest pain, No stress test offerd at this time, Will discuss with cardiology as pt is high risk with LDL >200. (2) Acute worsening of stage 3 chronic kidney disease Code(s): N18.3 - CHRONIC KIDNEY DISEASE, STAGE 3 (MODERATE) Status: Acute Comment: Improved with Villanueva drainage, avoid nephrotoxic meds and contrast media (3) Back pain Code(s): M54.9 - DORSALGIA, UNSPECIFIED Status: Acute Qualifiers: Back pain location: low back pain (4) Esophagitis, CMV Code(s): K20.8 - OTHER ESOPHAGITIS; B25.8 - OTHER CYTOMEGALOVIRAL DISEASES Status: Acute Comment: has circumferential ulcer with prox esophageal mild stricture (5) Chronic anemia Code(s): D64.9 - ANEMIA, UNSPECIFIED Status: Chronic (6) GERD (gastroesophageal reflux disease) Code(s): K21.9 - GASTRO-ESOPHAGEAL REFLUX DISEASE WITHOUT ESOPHAGITIS Status: Chronic Qualifiers: Esophagitis presence: with esophagitis Qualified Code(s): K21.0 - Gastro- esophageal reflux disease with esophagitis Comment: Continue with PPI (7) Hyperlipidemia Code(s): E78.5 - HYPERLIPIDEMIA, UNSPECIFIED Status: Chronic Qualifiers: Hyperlipidemia type: unspecified Qualified Code(s): E78.5 - Hyperlipidemia , unspecified (8) Hypertension Code(s): I10 - ESSENTIAL (PRIMARY) HYPERTENSION Status: Chronic Qualifiers: Hypertension type: essential hypertension Qualified Code(s): I10 - Essential (primary) hypertension (9) Physical deconditioning Code(s): R53.81 - OTHER MALAISE Status: Chronic Comment: PT/OT for mobilization, back to rehab after acute conditions stabilized (10) SLE (systemic lupus erythematosus) Code(s): M32.9 - SYSTEMIC LUPUS ERYTHEMATOSUS, UNSPECIFIED Status: Chronic Qualifiers: Systemic lupus erythematosus type: unspecified Comment: Stable, no acute flare - Plan * pathology pending * CRP elevated likely due to infection, ESR and Anti-DsDNA pending for now to track lupus marker * abx per ID for now * continue current plan of care otherwise with no changes * case and plan d/w patient and daughter at length, they understand and agree with this plan
--- NOTE | 2017-12-09 12:53 | PRG ---
DATE OF SERVICE: 12/09/2017 SUBJECTIVE: Ms. Burnett says that her dysphagia has improved since her EGD with Dr. Amaya 4 days ago . Appetite remains chronically poor, but she reports she is tolerating her diet. She had a couple o f loose bowel movements today, but denies any bleeding with this. No abdominal pain. OBJECTIVE: VITAL SIGNS: Temperature 98.5, pulse 72, blood pressure 165/71, 94% oxygen saturation on room air. GENERAL: Frail, no acute distress. HEART: Regular rate and rhythm. LUNGS: Clear to auscultation bilaterally. ABDOMEN: Soft and nontender to palpation. EXTREMITIES: No peripheral edema. LABORATORY STUDIES: WBC up to 1.9 with 42% neutrophils, hemoglobin 9.2, platelets 224. Sodium 139, potassium 3.1, BUN 13, creatinine 0.74, albumin 2.4. CRP 1.01. Esophageal biopsies pending. Bone m arrow biopsy report is also pending. ASSESSMENT AND PLAN: 1. Esophageal ulcer. 2. Dysphagia. 3. Leukopenia. We are still awaiting results of esophageal biopsies. Dr. Amaya's impression was that her esophageal erosion did not have a classic appearance for CMV ulcer, but note, she does have a prior history of C MV esophagitis and CMV colitis. Regarding plan for esophageal dilation, her white blood cell count h as come up a bit from yesterday. At this time, we will await results of esophageal biopsies and also trend WBC count. We will likely be able to proceed with EGD and esophageal dilation later this week .
[2017-12-09] MEDS: cefTRIAXone\\ROCEPHIN 1 GM in Sodium Chloride 0.9% 100 ML IVPB SCH (16:09)
[2017-12-09] MEDS: Fluconazole 100 MG TAB PO SCH (16:09)
--- NOTE | 2017-12-09 17:25 | HP ---
DATE OF ADMISSION: 12/09/2017. CHIEF COMPLAINT: Still having cramps intermittently. HISTORY OF PRESENT ILLNESS: The patient passed a fair amount of bright red blood per rectum with kahlil e clots. Dr. Amaya has evaluated it and he has postponed a repeat endoscopy at this point in time. E GD showed an area of stricture and an area of ulceration, which does not look similar to what one wou ld expect with cytomegalovirus. No vomiting, no dyspnea. PHYSICAL EXAMINATION: VITAL SIGNS: She has been afebrile. BP 160/71, pulse 72, respirations 18, O2 sat 94%. GENERAL: Chronically ill appearing, but in no acute distress, awake, alert, oriented. LUNGS: Symmetrical breath sounds. HEART: S1, S2, regular rate. ABDOMEN: Soft with mild tenderness. Bowel sounds are present, but not increased. She is able to mo ve extremities. Plantar responses are flexure. NEUROLOGIC: Cognitive function appears to be intact. LABORATORY DATA: White cell count is up to 1.9, hemoglobin 9.2, platelets 224,000, 42% neutrophils, 20% bands, total neutrophil count about 1200, creatinine 0.74, sodium 139. C. difficile antigen and toxin negative. ASSESSMENT AND DISCUSSION: Systemic lupus erythematosus, on immunosuppressive medication. Renal ins ufficiency with improvement and cytomegalovirus gastroenteritis after a protracted course of Valcyte, still with low level cytomegalovirus viremia. Now admitted with neutropenia associated with likely toxicity from Valcyte secondary to decrease in GFR and decreased oral intake with volume depletion. The oral intake is decreased probably due to the esophageal problem. Now, she has this bleeding in t he stool and may need a lower endoscopy. We will consult Dr. Alessandro Arguelles, who is her rheumatologi st because the overall complications that we are experiencing with her are due to the immunosuppressi ve effect of the lupus medications. If we were able to titrate those down a bit, that would help a l ot in improving her condition and preventing further complications. The daughter inquired regarding the possibility that the cytomegalovirus was causing the bladder issue and I explained that only if s he had the spinal cord involvement, typically cytomegalovirus is not associated with isolated neuroge todd bladder and usually the lower extremity appendicular structure neuropathies are more prominent in that case.
--- NOTE | 2017-12-09 18:10 | PDOC.CTH ---
Cardiology Progress Note - Subjective She is doing better. She had her EGD and it showed a small ulcer and a stricture. - Objective Vital Signs Temp Pulse Resp BP Pulse Ox 12/09/17 09:54 165/71 H 12/09/17 08:00 98.5 F 72 18 94 L Admit Weight 77 lb Weight 77 lb 2.589 oz 12/08/17 12/09/17 12/10/17 06:59 06:59 06:59 Intake Total 390 0 Output Total 2997 920 450 Balance -2607 -920 -450 - Physical Examination General/Neuro: alert & oriented x3, NAD Neck: no JVD present Lungs: unlabored respirations Heart: RRR Abdomen: NT/ND Extremities: other: (no edema) - Telemetry Telemetry Rhythm: NSR - Labs Result Diagrams: 12/09/17 04:05 12/09/17 04:05 Troponin/CKMB CK-MB (CK-2) 7.6 ng/mL (0-6.6) H* 11/30/17 15:08 Troponin I 0.014 ng/mL (< 0.028) 11/30/17 21:35 - Assessment/Plan 1. Neutropenia. 2. Chest pain. currently pain free 3. Possible vegetation on mitral valve. 4. Dysphagia 5. Esophageal ulcer and stricture. 6. ARF on CKD, improved. PLAN: - Will have esophageal dilatation later this week. - Will need CHRISTIAN after dilatation once safe from GI perspective. - Will need stress testing as outpatient in the distant future. - Renal function improved. - Orlando Nieves
[2017-12-09] MEDS: Lidocaine Patch Removal TOP SCH (20:31)
[2017-12-09] MEDS: Rosuvastatin 20 MG TAB PO SCH (20:31)
[2017-12-09] MEDS: Famotidine 20 MG TAB PO SCH (20:31)
[2017-12-10] MEDS: Ondansetron ODT 4 MG TAB PO PRN (03:06)
[2017-12-10 05:34] LABS: Anion Gap 11 mmol/L (10-20); Calc. Creatinine Clearance 38 mL/min (70-130); Calcium 7.6 mg/dL (7.8-10.44); Carbon Dioxide 26 mmol/L (23-31); Chloride 106 mmol/L (98-107); Estimated GFR-MDRD 74; Glucose 78 mg/dL (80-115); Sodium 140 mmol/L (136-145)
[2017-12-10 05:38] LABS: Potassium 2.9 mmol/L (3.5-5.1)
[2017-12-10 06:39] LABS: Acanthocytes MODERATE= 6-15 cells (100X) (None Seen); Band 6 % (5-11); Hypochromia SLIGHT = 6-15 cells (100X) (0-5/hpf); Lymphocytes 11 % (21-51); MDiff Complete? YES; Mean Corpuscular HGB CONC 31.1 g/dL (32.0-36.0); Mean Corpuscular Hemoglobin 30.7 pg (27.0-31.0); Mean Corpuscular Volume 98.7 fl (81.0-99.0); Mean Platelet Volume 7.7 fL (7.4-10.4); Monocytes 35 % (0-10); Myelocyte 3 % (0-0); Neutrophil 45 % (42-75); Nucleated RBC 89 % (0); Platelet Count 236 thou/uL (130-400); Polychromasia MODERATE = 3-4 cells (100X) (0-2/hpf); RBC Distribution Width 21.4 % (11.5-14.5); Red Blood Cell (RBC) Count 2.91 mill/uL (4.20-5.40); Schistocytes MODERATE= 6-15 cells (100X) (0-1/hpf); White Blood Cell (WBC) Count 1.2 thou/uL (4.8-10.8)
[2017-12-10 06:46] LABS: BUN (Urea Nitrogen) 14 mg/dL (9.8-20.1)
[2017-12-10] MEDS: Lidocaine 5% Patch TD SCH (08:03)
[2017-12-10] MEDS: Saccharomyces boulardii 250 MG CAP PO SCH (09:33)
[2017-12-10] MEDS: Megestrol Acetate 40 MG TAB PO SCH ×3 (09:33→20:54)
[2017-12-10] MEDS: Sodium Bicarbonate Tab 325 MG TAB PO SCH ×2 (09:33→20:54)
[2017-12-10] MEDS: Calcitriol 0.25 MCG CAP PO SCH (09:33)
[2017-12-10] MEDS: Gabapentin 300 MG CAP PO SCH ×2 (09:34→20:54)
[2017-12-10] MEDS: predniSONE 50 MG TAB PO SCH (09:34)
[2017-12-10] MEDS: Potassium Chloride 20 MEQ TAB PO SCH ×3 (09:34→18:21)
[2017-12-10] MEDS: Carvedilol 3.125 MG TAB PO SCH ×2 (09:34→20:54)
[2017-12-10 11:37] LABS: dsDNA IgG Antibody 1.8 IU/mL (<10 Negative)
[2017-12-10] MEDS ORDERED: Promethazine 25 MG TAB PO PRN (12:28)
--- NOTE | 2017-12-10 12:38 | PDOC.CTH ---
Cardiology Progress Note - Subjective She is c/o a headache. No other issues. - Objective Vital Signs Temp Pulse Resp BP 12/10/17 08:00 98.7 F 73 16 12/10/17 07:47 98.7 F 73 16 178/81 H Admit Weight 77 lb Weight 77 lb 2.589 oz 12/09/17 12/10/17 12/11/17 06:59 06:59 06:59 Intake Total 0 150 Output Total 920 9607 769 Balance -920 -1053 -460 - Physical Examination General/Neuro: alert & oriented x3, NAD Neck: no JVD present Lungs: unlabored respirations Heart: RRR Abdomen: NT/ND Extremities: other: (no edema) - Labs Result Diagrams: 12/10/17 04:09 12/10/17 04:09 Troponin/CKMB CK-MB (CK-2) 7.6 ng/mL (0-6.6) H* 11/30/17 15:08 Troponin I 0.014 ng/mL (< 0.028) 11/30/17 21:35 - Assessment/Plan 1. Neutropenia. 2. Chest pain. currently pain free 3. Possible vegetation on mitral valve. 4. Dysphagia 5. Esophageal ulcer and stricture. 6. ARF on CKD, improved. PLAN: - Will have esophageal dilatation later this week. - Will need CHRISTIAN after dilatation once safe from GI perspective. - Will need stress testing as outpatient in the distant future. - Orlando Nieves
[2017-12-10] MEDS: cefTRIAXone\\ROCEPHIN 1 GM in Sodium Chloride 0.9% 100 ML IVPB SCH (15:54)
--- NOTE | 2017-12-10 16:45 | PRG ---
DATE OF CONSULTATION: 12/10/2017 GI INPATIENT DAILY PROGRESS NOTE SUBJECTIVE: Ms. Burnett feels that she is eating a bit better, but she continues to have early satiety and poor appetite. She has had four bowel movements today, but these have been characterized as well formed and brown. There has been no further overt bleeding. OBJECTIVE: VITAL SIGNS: Temperature 98.7, pulse 73, blood pressure 178/81, 91% oxygen saturation on 2 liters nasal cannula. GENERAL: Chronically ill, no acute distress. HEART: Regular rate and rhythm. LUNGS: Clear to auscultation bilaterally. ABDOMEN: Bowel sounds present, soft, mild generalized tenderness to palpation, but no guarding or rebound tenderness. EXTREMITIES: No peripheral edema. LABORATORY STUDIES: Hemoglobin 9.0, platelets 236. WBC down again to 1.2 with 45% neutrophils. Sodium 140, potassium 2.9, BUN 14, creatinine 0.77. Pathology esophageal biopsies demonstrates ulcer without dysplasia or malignancy. There are some atypical nuclear features concerning for viral inclusions, but HSV and CMV stains are still pending. Bone marrow biopsy result is also pending. ASSESSMENT AND PLAN: 1. Esophageal ulcer, possibly due to recurrent Cytomegalovirus esophagitis. 2. Dysphagia. 3. Leukopenia. We are awaiting CMV and HSV immunostains on the esophageal biopsies, but I do suspect that this may represent recurrent CMV esophagitis. This in itself would not be a contraindication to repeat EGD with attempted esophageal dilation, but note her leukopenia persists and absolute neutrophil count is just barely above 500. At this time, we will follow her labs and await further immunostains on the esophageal biopsies. Hopefully, we will be able to repeat EGD for esophageal dilation, possibly Friday or Friday. [facility]
[2017-12-10] MEDS: Fluconazole 100 MG TAB PO SCH (18:21)
--- NOTE | 2017-12-10 18:26 | PDOC.PN ---
- Subjective Encounter Start Date: 12/10/17 Encounter Start Time: 18:25 feels nauseous today. has headache. still leukopenic. pending Bone marrow bx results. - Objective Resuscitation Status: Resuscitation Status FULL:Full Resuscitation MAR Reviewed: Yes Vital Signs & Weight: Vital Signs (12 hours) Temp Pulse Resp BP 12/10/17 08:00 98.7 F 73 16 12/10/17 07:47 98.7 F 73 16 178/81 H Weight Admit Weight 77 lb Weight 77 lb 2.589 oz Most Recent Monitor Data Heart Rate from ECG 78 NIBP 115/60 NIBP BP-Mean 78 Respiration from ECG 12 SpO2 94 I&O: 12/09/17 12/10/17 12/11/17 06:59 06:59 06:59 Intake Total 0 150 Output Total 920 5711 766 Balance -920 -1892 -380 Result Diagrams: 12/10/17 04:09 12/10/17 04:09 Phys Exam - Physical Examination Constitutional: NAD HEENT: moist MMs, sclera anicteric Neck: no nodes, no JVD, supple Respiratory: no wheezing, no rales, no rhonchi Cardiovascular: RRR, no significant murmur, no rub Gastrointestinal: soft, non-tender, no distention Musculoskeletal: no edema, pulses present Dx/Plan (1) Neutropenia Code(s): D70.9 - NEUTROPENIA, UNSPECIFIED Status: Resolved Comment: patient awaiting Bm bx. rheumatology consulted (2) Esophagitis, CMV Code(s): K20.8 - OTHER ESOPHAGITIS; B25.8 - OTHER CYTOMEGALOVIRAL DISEASES Status: Acute Comment: has circumferential ulcer with prox esophageal mild stricture. bx from EGD negative for malignancy (3) Hyponatremia Code(s): E87.1 - HYPO-OSMOLALITY AND HYPONATREMIA Status: Acute Comment: resolved. (4) Sepsis Code(s): A41.9 - SEPSIS, UNSPECIFIED ORGANISM Status: Acute Comment: charo GONSALES with Dr Phillips. consulting rheuamatology (5) SLE (systemic lupus erythematosus) Code(s): M32.9 - SYSTEMIC LUPUS ERYTHEMATOSUS, UNSPECIFIED Status: Chronic Qualifiers: Systemic lupus erythematosus type: unspecified Comment: Stable, no acute flare, will consult rheumatology. (6) Colitis, CMV Code(s): A08.39 - OTHER VIRAL ENTERITIS; B25.9 - CYTOMEGALOVIRAL DISEASE, UNSPECIFIED Status: Suspected (7) Hypokalemia Code(s): E87.6 - HYPOKALEMIA Status: Resolved Comment: K low today. will replete. - Plan cont current plan of care, continue antibiotics * . -replete K -awaiting Bone marrow bx results -monitor white count, cont abx. f/u ID, rheumatology cont current care.
[2017-12-10] MEDS: Rosuvastatin 20 MG TAB PO SCH (20:54)
[2017-12-10] MEDS: Famotidine 20 MG TAB PO SCH (20:54)
[2017-12-10] MEDS: Lidocaine Patch Removal TOP SCH (20:55)
--- NOTE | 2017-12-10 22:40 | CON ---
DATE OF CONSULTATION: 12/10/2017 REASON FOR CONSULTATION: Evaluation of systemic lupus erythematosus medications. HISTORY OF PRESENT ILLNESS: Ms. Burnett is a 72-year-old Latin-Swed[place] female with past medical hi story of systemic lupus erythematosus, who I have followed for some time, but I have not seen for the past one year or more. She was taking a steady regimen of Plaquenil, low dose CellCept, and prednis one 5 mg. She was lost to followup after being diagnosed with adrenal insufficiency and having predn isone dose increased to 25 mg. The patient notes difficulty with decreasing her dose below 25 mg due to increase in lethargy and nausea with this. She has been admitted to the hospital multiple times this year due to severe infections. She has had intermittent episodes of acute renal failure that re solved quickly. She has had workup with Hematology for pancytopenia with bone marrow biopsy prelimin arily showing MDS with cytogenetics pending. She notes diffuse pain in the joints in the muscles of late. No oral ulcers, pleurisy, increase in hair loss, paresthesias, skin rashes. She does note pro blems with easy bruising of late. PAST MEDICAL HISTORY: SLE, diagnosed in the 1980s. She did receive treatment with Cytoxan for lupus nephritis, but has not had evidence of this since I have been seeing her. She has been treated most recently with prednisone, low dose CellCept, and Plaquenil. 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 PAST SURGICAL HISTORY: Splenectomy, renal biopsy, renal artery embolization. FAMILY HISTORY: No known history of autoimmune disease. SOCIAL HISTORY: She denies any smoking, drinking, or illicit drug use. She has been living in an as sisted living facility. ALLERGIES: SULFA. CURRENT MEDICATIONS: Calcitriol, Tums, Coreg, Rocephin, clonidine, Pepcid, Diflucan, gabapentin, lid ocaine patch, Megace, metoprolol, nitropatch, Zofran, Protonix, K-Dur, prednisone 25 mg, Phenergan p. r.n., Crestor, probiotics, sodium bicarbonate. REVIEW OF SYSTEMS: A 12-point review of systems is conducted and is negative except for as above. PHYSICAL EXAMINATION: GENERAL: She is cushingoid. VITAL SIGNS: She is afebrile, pulse 72, respirations 18, oxygen saturation 91% on room air, blood pr essure 168/81. HEENT: Normocephalic, atraumatic. Pupils equally round and reactive to light and accommodation. Ex traocular muscles are intact. Oropharynx is clear. Dry mucous membranes noted, whitish coating note d on the tongue, no oral ulcers. NECK: Supple, no JVD or lymphadenopathy. CHEST: Lungs have decreased breath sounds at the bases. ABDOMEN: Soft, nontender to palpation. Positive bowel sounds. EXTREMITIES: Diffuse ecchymosis is noted. No synovitis. Diffuse deformity noted in the hands. Dif fuse articular and nonarticular tenderness is noted. LABORATORY DATA: CBC notable for white blood cell count of 1.2, hemoglobin 9 with normal MCV, platel ets 236,000. BMP notable for potassium of 2.9 (of note, the patient did receive potassium after this result), calcium of 7.6. Anti-dsDNA negative. CRP 1. Coags normal. ESR is less than 1. UA shows trace leukocyte esterase and 4+ bacteria, no protein, or casts noted. ASSESSMENT AND PLAN: This is a 72-year-old Latin-Swedish female with past medical history of system ic lupus erythematosus, fibromyalgia, possible adrenal insufficiency with recent problems with severe recurrent infections, Pancytopenia noted per recent labs. Myelodysplastic syndrome is suspected. No signs of active systemic lupus erythematosus per clinical exam today. We will check laboratory st udies to further evaluate this. I discussed restarting Plaquenil and decreasing prednisone to lowest dose tolerated. Discussed that she could even decrease this by 1/2 or 1 mg per month. I do not see any reason to restart her CellCept at this time. The pain that she is having is more consistent wit h her fibromyalgia/chronic pain syndrome. Continue gabapentin for this. We will continue to follow.
[2017-12-11] MEDS: Potassium Chloride 20 MEQ TAB PO SCH ×2 (03:14→11:21)
[2017-12-11 05:38] LABS: Anion Gap 13 mmol/L (10-20); BUN (Urea Nitrogen) 13 mg/dL (9.8-20.1); Calc. Creatinine Clearance 34 mL/min (70-130); Calcium 8.2 mg/dL (7.8-10.44); Carbon Dioxide 25 mmol/L (23-31); Chloride 109 mmol/L (98-107); Estimated GFR-MDRD 65; Glucose 91 mg/dL (80-115); Potassium 5.3 mmol/L (3.5-5.1); Sodium 142 mmol/L (136-145)
[2017-12-11 06:19] LABS: Acanthocytes SLIGHT = 1-5 cells (100X) (None Seen); Band 8 % (5-11); Burr Cells SLIGHT = 2-5 cells (100X) (0-1/hpf); Hemoglobin 9.6 g/dL (12.0-16.0); Lymphocytes 51 % (21-51); MDiff Complete? YES; Mean Corpuscular HGB CONC 30.5 g/dL (32.0-36.0); Mean Corpuscular Hemoglobin 30.4 pg (27.0-31.0); Mean Corpuscular Volume 99.5 fl (81.0-99.0); Mean Platelet Volume 12.1 fL (7.4-10.4); Metamyelocyte 2 % (0-0); Monocytes 5 % (0-10); Neutrophil 34 % (42-75); Nucleated RBC 68 % (0); PLT Morphology Comment Appears Adequate; Platelet Count 244 thou/uL (130-400); Polychromasia MODERATE = 3-4 cells (100X) (0-2/hpf); RBC Distribution Width 21.7 % (11.5-14.5); Red Blood Cell (RBC) Count 3.15 mill/uL (4.20-5.40); Schistocytes MODERATE= 6-15 cells (100X) (0-1/hpf); White Blood Cell (WBC) Count 2.4 thou/uL (4.8-10.8)
[2017-12-11] MEDS: Carvedilol 3.125 MG TAB PO SCH ×2 (07:52→20:39)
[2017-12-11] MEDS: Gabapentin 300 MG CAP PO SCH ×2 (07:52→20:41)
[2017-12-11] MEDS: Megestrol Acetate 40 MG TAB PO SCH ×3 (07:53→20:41)
[2017-12-11] MEDS: Lidocaine 5% Patch TD SCH (07:53)
[2017-12-11] MEDS: predniSONE 50 MG TAB PO SCH (07:53)
[2017-12-11] MEDS: Sodium Bicarbonate Tab 325 MG TAB PO SCH ×2 (07:53→20:42)
[2017-12-11] MEDS: Calcitriol 0.25 MCG CAP PO SCH (07:53)
[2017-12-11] MEDS: Saccharomyces boulardii 250 MG CAP PO SCH (07:54)
[2017-12-11] MEDS: Acetaminophen 500 MG TAB PO PRN (08:02)
--- NOTE | 2017-12-11 12:02 | PRG ---
DATE OF SERVICE: 12/11/2017 GI INPATIENT DAILY PROGRESS NOTE SUBJECTIVE: Ms. Burnett says she is feeling about the same. She has had 2 bowel movements so far t nat. These were bit softer. There has been no further hematochezia over the past few days. No abd ominal pain. Appetite remains poor. White cell count is now up to 2.4 today. OBJECTIVE: VITAL SIGNS: Temperature 98.6, pulse 71, blood pressure 169/82, 91% oxygen saturation on room air. GENERAL: No acute distress. HEART: Regular rate and rhythm. LUNGS: Clear to auscultation bilaterally. ABDOMEN: Soft and nontender. EXTREMITIES: No peripheral edema. LABORATORY STUDIES: Hemoglobin 9.6, WBC up to 2.4 with 34% neutrophils, and platelets 244. Sodium 1 42, potassium 5.3, BUN 13, creatinine 0.86. ASSESSMENT AND PLAN: 1. Esophageal ulcer, possibly recurrent Cytomegalovirus esophagitis. 2. Esophageal stricture. 3. Dysphagia. 4. Leukopenia. We will go ahead and plan for repeat EGD with planned esophageal dilation tomorrow. Still awaiting final results on the esophageal biopsies from her prior exam. The patient desires to proceed.
[2017-12-11 12:47] LABS: Complement-C4 26.7 mg/dL (15-57)
[2017-12-11] MEDS: cefTRIAXone\\ROCEPHIN 1 GM in Sodium Chloride 0.9% 100 ML IVPB SCH (14:53)
--- NOTE | 2017-12-11 18:00 | PDOC.PN ---
- Subjective Encounter Start Date: 12/11/17 Encounter Start Time: 17:58 patients nausea is better. no fevers. had some low grade temperatures of 99 F last night. no chest pain, nausea or vomiting. - Objective Resuscitation Status: Resuscitation Status FULL:Full Resuscitation MAR Reviewed: Yes Vital Signs & Weight: Vital Signs (12 hours) Temp Pulse Resp BP Pulse Ox 12/11/17 12:00 91 L 12/11/17 08:00 98.6 F 71 16 12/11/17 07:25 98.6 F 71 16 169/82 H 91 L Weight Admit Weight 77 lb Weight 77 lb 2.589 oz Most Recent Monitor Data Heart Rate from ECG 78 NIBP 115/60 NIBP BP-Mean 78 Respiration from ECG 12 SpO2 94 I&O: 12/10/17 12/11/17 12/12/17 06:59 06:59 06:59 Intake Total 150 Output Total 3469 6369 753 Balance -1892 -1329 -375 Result Diagrams: 12/11/17 04:50 12/11/17 04:50 Phys Exam - Physical Examination HEENT: moist MMs, sclera anicteric Neck: no nodes, no JVD, supple Respiratory: no wheezing, no rales, no rhonchi Cardiovascular: RRR, no significant murmur, no rub Gastrointestinal: soft, no distention Musculoskeletal: no edema, pulses present Dx/Plan (1) Neutropenia Code(s): D70.9 - NEUTROPENIA, UNSPECIFIED Status: Resolved Comment: patient awaiting Bm bx. rheumatology consulted , decreased prednisone, plaquenil. holding cellcept. reportedly some concern for MDS? (2) Esophagitis, CMV Code(s): K20.8 - OTHER ESOPHAGITIS; B25.8 - OTHER CYTOMEGALOVIRAL DISEASES Status: Acute Comment: has circumferential ulcer with prox esophageal mild stricture. bx from EGD negative for malignancy . will perform another esophageal dilation procedure likely tomorow on 12/12/17 (3) Hyponatremia Code(s): E87.1 - HYPO-OSMOLALITY AND HYPONATREMIA Status: Acute Comment: resolved. (4) Sepsis Code(s): A41.9 - SEPSIS, UNSPECIFIED ORGANISM Status: Acute Comment: POA, cont rocephin with Dr Phillips. consul rheum, infectious source not obvious at this time. (5) SLE (systemic lupus erythematosus) Code(s): M32.9 - SYSTEMIC LUPUS ERYTHEMATOSUS, UNSPECIFIED Status: Chronic Qualifiers: Systemic lupus erythematosus type: unspecified Comment: Stable, no acute flare, will decrease dose of plaquenil, prednisone (6) Colitis, CMV Code(s): A08.39 - OTHER VIRAL ENTERITIS; B25.9 - CYTOMEGALOVIRAL DISEASE, UNSPECIFIED Status: Suspected (7) Hypokalemia Code(s): E87.6 - HYPOKALEMIA Status: Resolved Comment: replete as needed - Plan cont current plan of care, continue antibiotics * . -white count coming up. appreciate rheumatology c/s. f/u final Bm bx results -esophgeal dilation procedure tomorrow -
[2017-12-11] MEDS: Famotidine 20 MG TAB PO SCH (20:41)
[2017-12-11] MEDS: Rosuvastatin 20 MG TAB PO SCH (20:42)
[2017-12-11] MEDS: Lidocaine Patch Removal TOP SCH (20:50)
[2017-12-12 05:24] LABS: Anion Gap 12 mmol/L (10-20); BUN (Urea Nitrogen) 15 mg/dL (9.8-20.1); Calc. Creatinine Clearance 29 mL/min (70-130); Calcium 8.1 mg/dL (7.8-10.44); Carbon Dioxide 27 mmol/L (23-31); Chloride 107 mmol/L (98-107); Estimated GFR-MDRD 55; Glucose 84 mg/dL (80-115); Potassium 4.5 mmol/L (3.5-5.1); Sodium 141 mmol/L (136-145)
[2017-12-12] MEDS: Carvedilol 3.125 MG TAB PO SCH (05:43)
[2017-12-12 05:46] LABS: Acanthocytes MODERATE= 6-15 cells (100X) (None Seen); Anisocytosis SLIGHT = 6-15 cells (100X) (0-5/hpf); Band 7 % (5-11); Basophilic Stippling SLIGHT = 1-2 cells (100X) (None Seen); Hemoglobin 9.3 g/dL (12.0-16.0); Howell Jolly Bodies MODERATE = 3-5 cells (100X) (None Seen); Lymphocytes 18 % (21-51); MDiff Complete? YES; Mean Corpuscular HGB CONC 30.9 g/dL (32.0-36.0); Mean Corpuscular Hemoglobin 30.7 pg (27.0-31.0); Mean Corpuscular Volume 99.4 fl (81.0-99.0); Mean Platelet Volume 8.2 fL (7.4-10.4); Metamyelocyte 4 % (0-0); Monocytes 16 % (0-10); Myelocyte 1 % (0-0); Neutrophil 53 % (42-75); Nucleated RBC 68 % (0); PLT Morphology Comment Appears Adequate; Pappenheimer Bodies SLIGHT = 1-2 cells (100X) (None Seen); Platelet Count 194 thou/uL (130-400); Polychromasia MODERATE = 3-4 cells (100X) (0-2/hpf); RBC Distribution Width 21.5 % (11.5-14.5); Red Blood Cell (RBC) Count 3.02 mill/uL (4.20-5.40); Schistocytes MODERATE= 6-15 cells (100X) (0-1/hpf); White Blood Cell (WBC) Count 3.9 thou/uL (4.8-10.8)
--- NOTE | 2017-12-12 11:19 | OP ---
DATE OF PROCEDURE: 12/12/2017 PROCEDURE: Esophagogastroduodenoscopy (diagnostic). INDICATION FOR PROCEDURE: Dysphagia. DESCRIPTION OF PROCEDURE: After the risks and benefits of the procedure were explained to the patien t including risks of infection, bleeding, perforation, reaction to anesthesia and/or pain, informed c onsent was obtained. The patient was then taken to the endoscopy suite where deep sedation was admin istered via propofol and anesthesia support. Once adequate anesthesia was achieved, the standard gas troscope was introduced into the mouth with intubation of the esophagus, stomach and proximal small i ntestine with the findings listed below. Patient tolerated the procedure well with no immediate roly operative complications. FINDINGS: ESOPHAGUS: Normal appearing mucosa was seen in the proximal esophagus, but did have some mild tortuo sity to the esophagus that was easily traversed with the standard gastroscope. There was no evidence of stricture or stenosis in this region at 31-34 cm past the incisors. Multiple erosions were seen along approximately 180 degrees of the esophageal lumen. These appeared to be healing nicely with no evidence of overt ulceration or active/recent bleeding. This area was also not friable to the passa ge of the gastroscope. Within the distal esophagus, there was normal appearing mucosa. The diaphrag matic pinch was seen at 38 cm well while the GE junction was well seen at 37 cm denoting a 1 cm hiata l hernia. STOMACH: Normal appearing mucosa was seen in the gastric cardia, fundus, body, antrum and incisura. There was no evidence of erosions, ulcerations, or mass lesions. DUODENUM: Normal appearing mucosa was seen in both the duodenal bulb and second portion of the duode num. There was no evidence of erosions, ulcerations, mass lesions or active/recent bleeding. IMPRESSION: 1. A 1 cm hiatal hernia in the distal esophagus. 2. Multiple esophageal erosions seen from 31-34 cm past the incisors occupying approximately 180 deg [place] of the esophageal lumen that appeared to be healing when compared to prior examination. No biop sies were taken at this time. 3. Mild tortuosity of the proximal esophagus without evidence of esophageal stricture or stenosis. RECOMMENDATIONS: 1. Would place the patient on full liquid diet and advance diet as tolerated. 2. We will continue proton-pump inhibitor b.i.d. given evidence of healing of esophageal erosions. 3. Follow up on previously obtained biopsy results of the midesophagus for possible recurrent cytome galovirus esophagitis. Further managed to be guided off the biopsy results. 4. Continue to trend hemoglobin and hematocrit for monitoring of anemia as well as leukopenia. We will continue to follow. Please call with any questions.
[2017-12-12] MEDS: Megestrol Acetate 40 MG TAB PO SCH ×3 (11:45→20:24)
[2017-12-12] MEDS: Sodium Bicarbonate Tab 325 MG TAB PO SCH ×2 (12:56→20:24)
[2017-12-12] MEDS: Calcitriol 0.25 MCG CAP PO SCH (12:56)
[2017-12-12] MEDS: Saccharomyces boulardii 250 MG CAP PO SCH (12:56)
[2017-12-12] MEDS: Gabapentin 300 MG CAP PO SCH ×2 (12:57→20:24)
[2017-12-12] MEDS: predniSONE 50 MG TAB PO SCH (12:57)
[2017-12-12] MEDS: Lidocaine 5% Patch TD SCH (12:58)
[2017-12-12] MEDS ORDERED: PROPOFOL 200 MG/20 ML VIAL ONE (13:40)
[2017-12-12] MEDS ORDERED: Lidocaine 1% PF 5 ML VIAL ONE (13:40)
[2017-12-12] MEDS: cefTRIAXone\\ROCEPHIN 1 GM in Sodium Chloride 0.9% 100 ML IVPB SCH (15:52)
--- NOTE | 2017-12-12 17:20 | PDOC.PN ---
- Subjective Encounter Start Date: 12/12/17 Encounter Start Time: 17:19 Subjective: post EGD, alert, feels well - Objective Resuscitation Status: Resuscitation Status FULL:Full Resuscitation MAR Reviewed: Yes Vital Signs & Weight: Vital Signs (12 hours) Temp Pulse Resp BP BP Pulse Ox 12/12/17 17:00 99.4 F 74 16 160/78 H 94 L 12/12/17 12:00 98.6 F 78 16 164/89 H 94 L 12/12/17 11:15 98.5 F 75 16 153/77 H 92 L 12/12/17 08:00 98.6 F 75 16 12/12/17 07:38 98.6 F 75 16 174/84 H 90 L 12/12/17 06:06 99.0 F 69 18 170/78 H 92 L Weight Admit Weight 77 lb Weight 77 lb 2.589 oz Most Recent Monitor Data Heart Rate from ECG 78 NIBP 115/60 NIBP BP-Mean 78 Respiration from ECG 12 SpO2 94 I&O: 12/11/17 12/12/17 12/13/17 06:59 06:59 06:59 Intake Total 1560 Output Total 1329 1075 300 Balance -1329 485 -300 Result Diagrams: 12/12/17 04:37 12/12/17 04:37 Phys Exam - Physical Examination Neck: no JVD Respiratory: clear to auscultation bilateral Cardiovascular: RRR, no significant murmur Gastrointestinal: soft, non-tender, positive bowel sounds Musculoskeletal: no edema diffuse ecchymosis, fragile skin Dx/Plan (1) Acute urinary retention Code(s): R33.8 - OTHER RETENTION OF URINE Status: Acute Comment: Villanueva placed, likely will need indefinitely, monitor outputs, appreciate Urology assistance, continue Villanueva after d/c to rehab (2) Acute worsening of stage 3 chronic kidney disease Code(s): N18.3 - CHRONIC KIDNEY DISEASE, STAGE 3 (MODERATE) Status: Acute Comment: Improved with Villanueva drainage, avoid nephrotoxic meds and contrast media (3) Esophagitis, CMV Code(s): K20.8 - OTHER ESOPHAGITIS; B25.8 - OTHER CYTOMEGALOVIRAL DISEASES Status: Acute Comment: has circumferential ulcer with prox esophageal mild stricture. bx from EGD negative for malignancy . will perform another esophageal dilation procedure likely tomorow on 12/12/17 (4) Hyponatremia Code(s): E87.1 - HYPO-OSMOLALITY AND HYPONATREMIA Status: Acute Comment: resolved. (5) UTI (urinary tract infection) Status: Acute Qualifiers: Urinary tract infection type: acute cystitis Hematuria presence: without hematuria Qualified Code(s): N30.00 - Acute cystitis without hematuria (6) Chronic anemia Code(s): D64.9 - ANEMIA, UNSPECIFIED Status: Chronic (7) GERD (gastroesophageal reflux disease) Code(s): K21.9 - GASTRO-ESOPHAGEAL REFLUX DISEASE WITHOUT ESOPHAGITIS Status: Chronic Qualifiers: Esophagitis presence: with esophagitis Qualified Code(s): K21.0 - Gastro- esophageal reflux disease with esophagitis Comment: Continue with PPI (8) Hyperlipidemia Code(s): E78.5 - HYPERLIPIDEMIA, UNSPECIFIED Status: Chronic Qualifiers: Hyperlipidemia type: unspecified Qualified Code(s): E78.5 - Hyperlipidemia , unspecified (9) Hypertension Code(s): I10 - ESSENTIAL (PRIMARY) HYPERTENSION Status: Chronic Qualifiers: Hypertension type: essential hypertension Qualified Code(s): I10 - Essential (primary) hypertension (10) Underweight Code(s): R63.6 - UNDERWEIGHT Status: Chronic Comment: advance to reg diet if ok with speech (11) Leukopenia Code(s): D72.819 - DECREASED WHITE BLOOD CELL COUNT, UNSPECIFIED Status: Acute (12) Myelodysplasia (myelodysplastic syndrome) Code(s): D46.9 - MYELODYSPLASTIC SYNDROME, UNSPECIFIED Status: Acute (13) SLE (systemic lupus erythematosus) Code(s): M32.9 - SYSTEMIC LUPUS ERYTHEMATOSUS, UNSPECIFIED Status: Chronic Qualifiers: Systemic lupus erythematosus type: unspecified Comment: Stable, no acute flare, will decrease dose of plaquenil, prednisone - Plan on rocephin for UTI -: on coreg and metoprolol- SC coreg -: cont PPI bid -: start plaquenil per Dr Arguelles * .
--- NOTE | 2017-12-12 18:12 | PDOC.CTH ---
Cardiology Progress Note - Subjective Doing well. She had her EGD today and it showed healing ulcers but still prominent. - Objective Vital Signs Temp Pulse Resp BP BP Pulse Ox 12/12/17 17:00 99.4 F 74 16 160/78 H 94 L 12/12/17 12:00 98.6 F 78 16 164/89 H 94 L 12/12/17 11:15 98.5 F 75 16 153/77 H 92 L 12/12/17 08:00 98.6 F 75 16 12/12/17 07:38 98.6 F 75 16 174/84 H 90 L Admit Weight 77 lb Weight 77 lb 2.589 oz 12/11/17 12/12/17 12/13/17 06:59 06:59 06:59 Intake Total 1560 Output Total 1329 1075 300 Balance -1329 485 -300 - Physical Examination General/Neuro: alert & oriented x3, NAD Neck: no JVD present Lungs: CTA, unlabored respirations Heart: RRR Abdomen: NT/ND Extremities: other: (no edema) - Labs Result Diagrams: 12/12/17 04:37 12/12/17 04:37 Troponin/CKMB CK-MB (CK-2) 7.6 ng/mL (0-6.6) H* 11/30/17 15:08 Troponin I 0.014 ng/mL (< 0.028) 11/30/17 21:35 - Assessment/Plan 1. Neutropenia, improved. 2. Chest pain. currently pain free 3. Possible vegetation on mitral valve. 4. Dysphagia 5. Esophageal ulcer. 6. ARF on CKD, improved. PLAN: - Did not require dilatation as no stricture seen. - Will plan on NOT doing CHRISTIAN for at least 1 month due to slow healing ulcers. - Will need stress testing as outpatient in the distant future. - Will repeat transthoracic echo to see if there has been any significant change in echo findings.
[2017-12-12] MEDS: Famotidine 20 MG TAB PO SCH (20:24)
[2017-12-12] MEDS: Rosuvastatin 20 MG TAB PO SCH (20:24)
[2017-12-12] MEDS: Hydroxychloroquine Sulfate 200 MG TAB PO SCH (20:24)
[2017-12-12] MEDS: Lidocaine Patch Removal TOP SCH (20:35)
[2017-12-13] MEDS: Gabapentin 300 MG CAP PO SCH ×2 (10:05→21:01)
[2017-12-13] MEDS: Sodium Bicarbonate Tab 325 MG TAB PO SCH ×2 (10:06→21:02)
[2017-12-13] MEDS: Megestrol Acetate 40 MG TAB PO SCH ×3 (10:06→21:01)
[2017-12-13] MEDS: Saccharomyces boulardii 250 MG CAP PO SCH (10:06)
[2017-12-13] MEDS: Calcitriol 0.25 MCG CAP PO SCH (10:06)
[2017-12-13] MEDS: Hydroxychloroquine Sulfate 200 MG TAB PO SCH ×2 (10:07→21:10)
[2017-12-13] MEDS: predniSONE 50 MG TAB PO SCH (10:07)
[2017-12-13] MEDS: Lidocaine 5% Patch TD SCH (10:08)
--- NOTE | 2017-12-13 10:30 | PDOC.PN ---
- Subjective Encounter Start Date: 12/13/17 Encounter Start Time: 10:28 Subjective: no CO except generalized weakness - Objective Resuscitation Status: Resuscitation Status FULL:Full Resuscitation MAR Reviewed: Yes Vital Signs & Weight: Vital Signs (12 hours) Temp Pulse Resp BP Pulse Ox 12/13/17 08:26 98.7 F 75 16 163/78 H 92 L Weight Admit Weight 77 lb Weight 77 lb 2.589 oz Most Recent Monitor Data Heart Rate from ECG 78 NIBP 115/60 NIBP BP-Mean 78 Respiration from ECG 12 SpO2 94 I&O: 12/12/17 12/13/17 12/14/17 06:59 06:59 06:59 Intake Total 1560 1080 Output Total 1075 1983 Balance 485 -903 Result Diagrams: 12/12/17 04:37 12/12/17 04:37 Phys Exam - Physical Examination Neck: no JVD Respiratory: clear to auscultation bilateral Cardiovascular: RRR, no significant murmur Gastrointestinal: soft, positive bowel sounds Musculoskeletal: edema present Dx/Plan (1) Acute urinary retention Code(s): R33.8 - OTHER RETENTION OF URINE Status: Acute Comment: Villanueva placed, likely will need indefinitely, monitor outputs, appreciate Urology assistance, continue Villanueva after d/c to rehab (2) Acute worsening of stage 3 chronic kidney disease Code(s): N18.3 - CHRONIC KIDNEY DISEASE, STAGE 3 (MODERATE) Status: Resolved Comment: Improved with Villanueva drainage, avoid nephrotoxic meds and contrast media (3) Esophagitis, CMV Code(s): K20.8 - OTHER ESOPHAGITIS; B25.8 - OTHER CYTOMEGALOVIRAL DISEASES Status: Acute Comment: has circumferential ulcer with prox esophageal mild stricture. bx from EGD negative for malignancy . will perform another esophageal dilation procedure likely tomorow on 12/12/17 (4) Hyponatremia Code(s): E87.1 - HYPO-OSMOLALITY AND HYPONATREMIA Status: Acute Comment: resolved. (5) UTI (urinary tract infection) Status: Acute Qualifiers: Urinary tract infection type: acute cystitis Hematuria presence: without hematuria Qualified Code(s): N30.00 - Acute cystitis without hematuria (6) Chronic anemia Code(s): D64.9 - ANEMIA, UNSPECIFIED Status: Chronic (7) GERD (gastroesophageal reflux disease) Code(s): K21.9 - GASTRO-ESOPHAGEAL REFLUX DISEASE WITHOUT ESOPHAGITIS Status: Chronic Qualifiers: Esophagitis presence: with esophagitis Qualified Code(s): K21.0 - Gastro- esophageal reflux disease with esophagitis Comment: Continue with PPI (8) Hyperlipidemia Code(s): E78.5 - HYPERLIPIDEMIA, UNSPECIFIED Status: Chronic Qualifiers: Hyperlipidemia type: unspecified Qualified Code(s): E78.5 - Hyperlipidemia , unspecified (9) Hypertension Code(s): I10 - ESSENTIAL (PRIMARY) HYPERTENSION Status: Chronic Qualifiers: Hypertension type: essential hypertension Qualified Code(s): I10 - Essential (primary) hypertension (10) Underweight Code(s): R63.6 - UNDERWEIGHT Status: Chronic Comment: advance to reg diet if ok with speech (11) Leukopenia Code(s): D72.819 - DECREASED WHITE BLOOD CELL COUNT, UNSPECIFIED Status: Acute (12) Myelodysplasia (myelodysplastic syndrome) Code(s): D46.9 - MYELODYSPLASTIC SYNDROME, UNSPECIFIED Status: Acute (13) SLE (systemic lupus erythematosus) Code(s): M32.9 - SYSTEMIC LUPUS ERYTHEMATOSUS, UNSPECIFIED Status: Chronic Qualifiers: Systemic lupus erythematosus type: unspecified Comment: Stable, no acute flare, will decrease dose of plaquenil, prednisone - Plan cont current plan of care transition antibx to PO -: cont plaquenil -: discuss DC planning with family * .
--- NOTE | 2017-12-13 18:00 | PRG ---
DATE OF SERVICE: 12/13/2017 REASON FOR CONSULTATION: Esophagitis, dysphagia. SUBJECTIVE: The patient states that she is feeling much better today and has had very little difficu lty with a full liquid diet. She no longer endorses any nausea or vomiting and has not had any furth er episodes of hematochezia over the past few days. She also denies any abdominal pain and has an in crease in her appetite being able to tolerate more oral intake. OBJECTIVE: VITAL SIGNS: Temperature 98.7, pulse 75, blood pressure 163/78, respiratory rate is 16, satting 92% on room air. GENERAL: No acute distress. HEART: Regular rate and rhythm. PULMONARY: Clear to auscultation bilaterally. ABDOMEN: Normoactive bowel sounds, soft, nontender, nondistended. EXTREMITIES: No cyanosis, clubbing or edema. LABORATORY STUDIES: No current studies are available for review. ASSESSMENT AND PLAN: 1. Esophageal ulcerations. The patient is now status post EGD with biopsies with erosive changes se en on those biopsies. However, viral pathology is still pending from those biopsies including cytome galovirus. Per EGD that was obtained on 12/12. The area of erosive esophagitis is in a state of hea ling, as evidenced or reflected by the patient's ability to tolerate oral intake. 2. Dysphagia, improved with treatment of esophagitis. 3. Leukopenia. Per most recent CBC, the patient's white count had improved. 4. Esophageal stricture. No evidence of esophageal stricture was seen on EGD obtained on 12/12/2017 but rather tortuosity of the proximal esophagus that could be contributing to sensation of dysphagia ; however, she is no longer currently endorsing symptoms of dysphagia and has been able to tolerate a liquid diet without any difficulty. At this point, we will advance her to a soft diet and reassess as necessary. We will sign off at this time. Please call with any additional questions.
--- NOTE | 2017-12-13 19:40 | PDOC.CTH ---
Cardiology Progress Note - Subjective She is doing well. She can advance her diet. - Objective Vital Signs Temp Pulse Resp BP Pulse Ox 12/13/17 08:26 98.7 F 75 16 163/78 H 92 L 12/13/17 08:00 98.7 F 75 16 92 L Admit Weight 77 lb Weight 77 lb 2.589 oz 12/12/17 12/13/17 12/14/17 06:59 06:59 06:59 Intake Total 1560 1080 Output Total 1075 1983 265 Balance 485 -219 -265 - Physical Examination General/Neuro: alert & oriented x3, NAD Neck: no JVD present Lungs: CTA, unlabored respirations Heart: RRR Abdomen: NT/ND Extremities: other: (no edema.) - Labs Result Diagrams: 12/12/17 04:37 12/12/17 04:37 Troponin/CKMB CK-MB (CK-2) 7.6 ng/mL (0-6.6) H* 11/30/17 15:08 Troponin I 0.014 ng/mL (< 0.028) 11/30/17 21:35 - Assessment/Plan 1. Neutropenia, improved. 2. Chest pain. currently pain free 3. Possible vegetation on mitral valve. 4. Dysphagia 5. Esophageal ulcer. 6. ARF on CKD, improved. PLAN: - Will plan on NOT doing CHRISTIAN for at least 1 month due to slow healing ulcers. - Will need stress testing as outpatient in the distant future. - Transthoracic echo pending today.
[2017-12-13] MEDS: Famotidine 20 MG TAB PO SCH (21:01)
[2017-12-13] MEDS: Cefdinir 300 MG CAP PO SCH (21:01)
[2017-12-13] MEDS: Rosuvastatin 20 MG TAB PO SCH (21:02)
[2017-12-13] MEDS: Lidocaine Patch Removal TOP SCH (21:15)
[2017-12-14] MEDS: Cefdinir 300 MG CAP PO SCH ×2 (08:44→20:40)
[2017-12-14] MEDS: Calcitriol 0.25 MCG CAP PO SCH (08:44)
[2017-12-14] MEDS: Sodium Bicarbonate Tab 325 MG TAB PO SCH ×2 (08:44→20:39)
[2017-12-14] MEDS: Lidocaine 5% Patch TD SCH (08:44)
[2017-12-14] MEDS: Gabapentin 300 MG CAP PO SCH ×2 (08:44→20:40)
[2017-12-14] MEDS: predniSONE 50 MG TAB PO SCH (08:45)
[2017-12-14] MEDS: Saccharomyces boulardii 250 MG CAP PO SCH (08:45)
[2017-12-14] MEDS: Megestrol Acetate 40 MG TAB PO SCH ×3 (08:45→20:40)
[2017-12-14] MEDS: Hydroxychloroquine Sulfate 200 MG TAB PO SCH ×2 (08:45→20:40)
--- NOTE | 2017-12-14 11:35 | PDOC.PN ---
- Subjective Encounter Start Date: 12/14/17 Encounter Start Time: 11:34 Subjective: no complaints - Objective Resuscitation Status: Resuscitation Status FULL:Full Resuscitation MAR Reviewed: Yes Vital Signs & Weight: Vital Signs (12 hours) Temp Pulse Resp BP Pulse Ox 12/14/17 08:00 97.5 F L 70 16 93 L 12/14/17 07:03 97.5 F L 70 16 172/77 H 93 L Weight Admit Weight 77 lb Weight 77 lb 2.589 oz Most Recent Monitor Data Heart Rate from ECG 78 NIBP 115/60 NIBP BP-Mean 78 Respiration from ECG 12 SpO2 94 I&O: 12/13/17 12/14/17 12/15/17 06:59 06:59 06:59 Intake Total 1080 250 Output Total 2101 1234 Balance -1021 -984 Result Diagrams: 12/12/17 04:37 12/12/17 04:37 Phys Exam - Physical Examination Neck: no JVD Respiratory: clear to auscultation bilateral Cardiovascular: RRR, no significant murmur Gastrointestinal: soft, positive bowel sounds Musculoskeletal: edema present fragile skin with multiple ecchymosis Dx/Plan (1) Acute urinary retention Code(s): R33.8 - OTHER RETENTION OF URINE Status: Acute Comment: Villanueva placed, likely will need indefinitely, monitor outputs, appreciate Urology assistance, continue Villanueva after d/c to rehab (2) Esophagitis, CMV Code(s): K20.8 - OTHER ESOPHAGITIS; B25.8 - OTHER CYTOMEGALOVIRAL DISEASES Status: Acute Comment: has circumferential ulcer with prox esophageal mild stricture. bx from EGD negative for malignancy . will perform another esophageal dilation procedure likely tomorow on 12/12/17 (3) Hyponatremia Code(s): E87.1 - HYPO-OSMOLALITY AND HYPONATREMIA Status: Resolved Comment: resolved. (4) UTI (urinary tract infection) Status: Acute Qualifiers: Urinary tract infection type: acute cystitis Hematuria presence: without hematuria Qualified Code(s): N30.00 - Acute cystitis without hematuria (5) Chronic anemia Code(s): D64.9 - ANEMIA, UNSPECIFIED Status: Chronic (6) GERD (gastroesophageal reflux disease) Code(s): K21.9 - GASTRO-ESOPHAGEAL REFLUX DISEASE WITHOUT ESOPHAGITIS Status: Chronic Qualifiers: Esophagitis presence: with esophagitis Qualified Code(s): K21.0 - Gastro- esophageal reflux disease with esophagitis Comment: Continue with PPI (7) Hyperlipidemia Code(s): E78.5 - HYPERLIPIDEMIA, UNSPECIFIED Status: Chronic Qualifiers: Hyperlipidemia type: unspecified Qualified Code(s): E78.5 - Hyperlipidemia , unspecified (8) Hypertension Code(s): I10 - ESSENTIAL (PRIMARY) HYPERTENSION Status: Chronic Qualifiers: Hypertension type: essential hypertension Qualified Code(s): I10 - Essential (primary) hypertension (9) Underweight Code(s): R63.6 - UNDERWEIGHT Status: Chronic Comment: advance to reg diet if ok with speech (10) Leukopenia Code(s): D72.819 - DECREASED WHITE BLOOD CELL COUNT, UNSPECIFIED Status: Acute (11) Myelodysplasia (myelodysplastic syndrome) Code(s): D46.9 - MYELODYSPLASTIC SYNDROME, UNSPECIFIED Status: Acute (12) SLE (systemic lupus erythematosus) Code(s): M32.9 - SYSTEMIC LUPUS ERYTHEMATOSUS, UNSPECIFIED Status: Chronic Qualifiers: Systemic lupus erythematosus type: unspecified Comment: Stable, no acute flare, will decrease dose of plaquenil, prednisone - Plan cont prednisone/plaquenil -: cont omnicef -: DC planning * .
[2017-12-14] MEDS: Famotidine 20 MG TAB PO SCH (20:39)
[2017-12-14] MEDS: Lidocaine Patch Removal TOP SCH (20:40)
[2017-12-14] MEDS: Rosuvastatin 20 MG TAB PO SCH (20:40)
--- NOTE | 2017-12-15 02:57 | PRG ---
DATE OF SERVICE: 12/14/2017 SUBJECTIVE: Feeling a little better. No diarrhea. The abdominal cramps have improved. Eating bett er. No respiratory symptoms. OBJECTIVE: VITAL SIGNS: She has been afebrile, T-max 98.4, and other vital signs are not remarkable. GENERAL: Still appears chronically ill, the anterior chest areas of bruising are decreasing in size. LUNGS: Clear. HEART: S1, S2, regular rate. ABDOMEN: Soft with less tenderness. EXTREMITIES: Moves all extremities equally. LABORATORY DATA: The white cell count is up to 3.9, hemoglobin 9.3, platelets 194 with a normal diff erential. The bands are down to 7% and creatinine 1.0. Dr. Alessandro Arguelles had seen the patient and recommended tapering the prednisone. She will not start any other immunosuppressive medication. The patient had an echocardiogram done on 12/14/2017 and this demonstrated an EF of 60%, diastolic dysfu nction, and a area in the anterior leaflet of the mitral valve, probably ruptured chordae. ASSESSMENT AND DISCUSSION: Systemic lupus erythematosus, which appears to be in remission at this ti me medication has been decreased in intensity by Dr. Arguelles. Renal insufficiency with improveme nt. Cytomegalovirus gastroenteritis, which appears to have improved, now with a very low viremia lev el, off Valcyte. The patient had a repeat biopsy of the esophagus, which showed an ulcer with no mal ignancy, pending CMV and HSV stains. At this point, continue withholding Valcyte, seems to be steadi ly improving and I would probably consider discontinuing cefdinir since she is at risk for recrudesce nce of C. difficile and the organisms in the urine are probably associated with colonization without invasive infection, patient required in and out catheterization and will always have positive urine c ultures.
[2017-12-15] MEDS: Gabapentin 300 MG CAP PO SCH ×2 (07:35→21:26)
[2017-12-15] MEDS: Saccharomyces boulardii 250 MG CAP PO SCH (07:35)
[2017-12-15] MEDS: Lidocaine 5% Patch TD SCH (07:35)
[2017-12-15] MEDS: predniSONE 50 MG TAB PO SCH (07:36)
[2017-12-15] MEDS: Sodium Bicarbonate Tab 325 MG TAB PO SCH ×2 (07:36→21:25)
[2017-12-15] MEDS: Calcitriol 0.25 MCG CAP PO SCH (07:36)
[2017-12-15] MEDS: Cefdinir 300 MG CAP PO SCH (07:36)
[2017-12-15] MEDS: Megestrol Acetate 40 MG TAB PO SCH ×3 (07:37→21:25)
[2017-12-15] MEDS: Hydroxychloroquine Sulfate 200 MG TAB PO SCH ×2 (07:37→21:25)
--- NOTE | 2017-12-15 10:38 | PDOC.PN ---
- Subjective Encounter Start Date: 12/15/17 Encounter Start Time: 09:00 -: old records requested/rev Patient seen and examined. No new complaints. No overnight events - Objective Resuscitation Status: Resuscitation Status FULL:Full Resuscitation MAR Reviewed: Yes Vital Signs & Weight: Vital Signs (12 hours) Temp Pulse Resp BP Pulse Ox 12/15/17 08:00 98.7 F 68 18 97 12/15/17 07:18 98.7 F 68 18 169/75 H 94 L Weight Admit Weight 77 lb Weight 77 lb 2.589 oz Most Recent Monitor Data Heart Rate from ECG 78 NIBP 115/60 NIBP BP-Mean 78 Respiration from ECG 12 SpO2 94 I&O: 12/14/17 12/15/17 12/16/17 06:59 06:59 06:59 Intake Total 250 250 240 Output Total 1234 1400 Balance -984 -1150 240 Result Diagrams: 12/12/17 04:37 12/12/17 04:37 Radiology Reviewed by me: Yes (echo- vegetation) Phys Exam - Physical Examination Constitutional: NAD HEENT: PERRLA, moist MMs, sclera anicteric Neck: no JVD, supple Respiratory: no wheezing, no rales, no rhonchi Cardiovascular: RRR, no significant murmur, no rub SM+ Gastrointestinal: soft, non-tender, no distention Musculoskeletal: no edema, pulses present Neurological: non-focal, normal sensation Lymphatic: no nodes Psychiatric: normal affect Skin: no rash, normal turgor Dx/Plan (1) UTI (urinary tract infection) due to urinary indwelling catheter Code(s): T83.511A - I/I REACT D/T INDWELLING URETHRAL CATHETER, INIT; N39.0 - URINARY TRACT INFECTION, SITE NOT SPECIFIED Status: Acute (2) Chronic anemia Code(s): D64.9 - ANEMIA, UNSPECIFIED Status: Chronic (3) Colitis, CMV Code(s): A08.39 - OTHER VIRAL ENTERITIS; B25.9 - CYTOMEGALOVIRAL DISEASE, UNSPECIFIED Status: Chronic (4) Esophagitis, CMV Code(s): K20.8 - OTHER ESOPHAGITIS; B25.8 - OTHER CYTOMEGALOVIRAL DISEASES Status: Chronic Comment: has circumferential ulcer with prox esophageal mild stricture. bx from EGD negative for malignancy . will perform another esophageal dilation procedure likely tomorow on 12/12/17 (5) GERD (gastroesophageal reflux disease) Code(s): K21.9 - GASTRO-ESOPHAGEAL REFLUX DISEASE WITHOUT ESOPHAGITIS Status: Chronic Qualifiers: Esophagitis presence: with esophagitis Qualified Code(s): K21.0 - Gastro- esophageal reflux disease with esophagitis Comment: Continue with PPI (6) Hyperlipidemia Code(s): E78.5 - HYPERLIPIDEMIA, UNSPECIFIED Status: Chronic Qualifiers: Hyperlipidemia type: unspecified Qualified Code(s): E78.5 - Hyperlipidemia , unspecified (7) Hypertension Code(s): I10 - ESSENTIAL (PRIMARY) HYPERTENSION Status: Chronic Qualifiers: Hypertension type: essential hypertension Qualified Code(s): I10 - Essential (primary) hypertension (8) Myelodysplasia (myelodysplastic syndrome) Code(s): D46.9 - MYELODYSPLASTIC SYNDROME, UNSPECIFIED Status: Chronic (9) Neutropenia Code(s): D70.9 - NEUTROPENIA, UNSPECIFIED Status: Chronic Comment: patient awaiting Bm bx. rheumatology consulted , decreased prednisone, plaquenil. holding cellcept. reportedly some concern for MDS? (10) Physical deconditioning Code(s): R53.81 - OTHER MALAISE Status: Chronic Comment: PT/OT for mobilization, back to rehab after acute conditions stabilized (11) Protein-calorie malnutrition, severe Code(s): E43 - UNSPECIFIED SEVERE PROTEIN-CALORIE MALNUTRITION Status: Chronic (12) SLE (systemic lupus erythematosus) Code(s): M32.9 - SYSTEMIC LUPUS ERYTHEMATOSUS, UNSPECIFIED Status: Chronic Qualifiers: Systemic lupus erythematosus type: unspecified Comment: Stable, no acute flare, will decrease dose of plaquenil, prednisone (13) Acute hyperkalemia Code(s): E87.5 - HYPERKALEMIA Status: Resolved Comment: Paitnt is Feeeling some palpitations, So Kayxalate give 30gm, Will kendall Monitor today. Telemetry looked fine. (14) Acute worsening of stage 3 chronic kidney disease Code(s): N18.3 - CHRONIC KIDNEY DISEASE, STAGE 3 (MODERATE) Status: Resolved Comment: Improved with Villanueva drainage, avoid nephrotoxic meds and contrast media (15) Chest pain Code(s): R07.9 - CHEST PAIN, UNSPECIFIED Status: Resolved Comment: Cardiology is Seeing pt, Recommeded CHRISTIAN, will kendall follow, continue on BB. Persistant Chest pain, No stress test offerd at this time, Will discuss with cardiology as pt is high risk with LDL >200. (16) Hyponatremia Code(s): E87.1 - HYPO-OSMOLALITY AND HYPONATREMIA Status: Resolved Comment: resolved. - Plan cont current plan of care, plan discussed w/ family * will DC omnicef for now as per ID recommendation * await CMV stain from esophageal biopsy * medication reviewed as below * symptomatic treatment * she has vegetation, will defer further plan to ID and cardiology * she will need placement * discussed with daughter * seems like not ready for discharge yet Review of Systems - Review of Systems Constitutional: weakness. negative: fever, chills, sweats, malaise, other ENT: negative: Ear Pain, Ear Discharge, Nose Pain, Nose Discharge, Nose Congestion, Mouth Pain, Mouth Swelling, Throat Pain, Throat Swelling, Other Respiratory: negative: Cough, Dry, Shortness of Breath, Hemoptysis, SOB with Excertion, Pleuritic Pain, Sputum, Wheezing Cardiovascular: negative: chest pain, palpitations, orthopnea, paroxysmal nocturnal dyspnea, edema, light headedness, other Gastrointestinal: negative: Nausea, Vomiting, Abdominal Pain, Diarrhea, Constipation, Melena, Hematochezia, Other Genitourinary: negative: Dysuria, Frequency, Incontinence, Hematuria, Retention , Other Musculoskeletal: negative: Neck Pain, Shoulder Pain, Arm Pain, Back Pain, Hand Pain, Leg Pain, Foot Pain, Other - Medications/Allergies Allergies/Adverse Reactions: Allergies Allergy/AdvReac Type Severity Reaction Status Date / Time iron Allergy Severe Rash Verified 10/12/17 23:33 Sulfa (Sulfonamide Allergy Severe Rash Verified 10/12/17 23:33 Antibiotics) magnesium sulfate Allergy Verified 10/12/17 23:33 sulfate Allergy Uncoded 10/12/17 23:33 Medications: Current Medications Acetaminophen (Tylenol) 1,000 mg PO Q6H PRN PRN Reason: Moderate to Severe Pain (6-10) Last Admin: 12/11/17 08:02 Dose: 1,000 mg Aspirin (Aspirin Chewable) 81 mg PO DAILY [facility] Last Admin: 12/15/17 07:35 Dose: 81 mg Calcitriol (Rocaltrol) 0.25 mcg PO DAILY [facility] Last Admin: 12/15/17 07:36 Dose: 0.25 mcg Calcium Carbonate (Tums) 500 mg PO QIDPRN PRN PRN Reason: Heartburn or Indigestion Clonidine (Catapres) 0.1 mg PO Q6H PRN PRN Reason: Hypertension Last Admin: 12/08/17 06:24 Dose: 0.1 mg Famotidine (Pepcid) 20 mg PO 2100 [facility] Last Admin: 12/14/17 20:39 Dose: 20 mg Gabapentin (Neurontin) 300 mg PO BID [facility] Last Admin: 12/15/17 07:35 Dose: 300 mg Hydroxychloroquine Sulfate (Plaquenil) 200 mg PO BID [facility] Last Admin: 12/15/17 07:37 Dose: 200 mg Lactulose (Lactulose) 20 gm PO TID PRN PRN Reason: Constipation Lidocaine (Lidoderm 5% Patch) 1 patch TD 0900 [facility] Last Admin: 12/15/17 07:35 Dose: 1 patch Megestrol Acetate (Megace) 40 mg PO TID [facility] Last Admin: 12/15/17 07:37 Dose: 40 mg Metoprolol Succinate (Toprol Xl) 100 mg PO DAILY [facility] Last Admin: 12/15/17 07:35 Dose: 100 mg Miscellaneous Medication (Lidocaine Patch Removal) 1 each TOP 2100 [facility] Last Admin: 12/14/17 20:40 Dose: 1 each Nitroglycerin (Nitrostat) 0.4 mg PO Q5MIN PRN PRN Reason: Chest Pain Ondansetron HCl (Zofran Odt) 4 mg PO Q6H PRN PRN Reason: Nausea/Vomiting Last Admin: 12/10/17 03:06 Dose: 4 mg Pantoprazole Sodium (Protonix) 40 mg PO Q12HR [facility] Last Admin: 12/15/17 07:36 Dose: 40 mg Prednisone (Prednisone) 25 mg PO QAM[facility] Last Admin: 12/15/17 07:36 Dose: 25 mg Promethazine HCl (Phenergan) 25 mg PO Q6H PRN PRN Reason: Nausea/Vomiting Rosuvastatin Calcium (Crestor) 20 mg PO HS [facility] Last Admin: 12/14/17 20:40 Dose: 20 mg Saccharomyces Boulardii (Florastor) 250 mg PO DAILY [facility] Last Admin: 12/15/17 07:35 Dose: 250 mg Simethicone (Mylicon Chewable) 80 mg PO TID PRN PRN Reason: Dyspepsia Sodium Bicarbonate (Bicarbonate, Sodium) 650 mg PO BID [facility] Last Admin: 12/15/17 07:36 Dose: 650 mg Sodium Chloride (Flush - Normal Saline) 10 ml IVF Q12HR [facility] Last Admin: 12/15/17 07:38 Dose: 10 ml Sodium Chloride (Flush - Normal Saline) 10 ml IVF PRN PRN PRN Reason: Saline Flush
[2017-12-15] MEDS ORDERED: Amlodipine 10 MG TAB PO SCH (13:45)
--- NOTE | 2017-12-15 13:46 | PDOC.CTH ---
Cardiology Progress Note - Subjective She is doing well. No new issues. Tolerating PO. - Objective Vital Signs Temp Pulse Resp BP Pulse Ox 12/15/17 08:00 98.7 F 68 18 97 12/15/17 07:18 98.7 F 68 18 169/75 H 94 L Admit Weight 77 lb Weight 77 lb 2.589 oz 12/14/17 12/15/17 12/16/17 06:59 06:59 06:59 Intake Total 250 250 360 Output Total 1234 1400 300 Balance -984 -1150 60 - Physical Examination General/Neuro: alert & oriented x3, NAD Neck: no JVD present Lungs: unlabored respirations Heart: RRR Abdomen: NT/ND Extremities: other: (no edema) - Labs Result Diagrams: 12/12/17 04:37 12/12/17 04:37 Troponin/CKMB CK-MB (CK-2) 7.6 ng/mL (0-6.6) H* 11/30/17 15:08 Troponin I 0.014 ng/mL (< 0.028) 11/30/17 21:35 - Assessment/Plan 1. Neutropenia, improved. 2. Chest pain. currently pain free 3. Possible vegetation on mitral valve. 4. Dysphagia 5. Esophageal ulcer. 6. ARF on CKD, improved. 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 I doubt that this is related to her acute issue. She is doing better clinically. - Would treat conservatively for now for her chest pain. She has not had any pain in the last week. - Her BP is starting to get up. Will restart home meds. Amlodipine at 10 mg daily. - No CHRISTIAN planned for now. - Will need stress testing in the future as outpatient. - Will need a repeat echo 1 month after discharge. - Placement likely due to deconditioning.
[2017-12-15] MEDS: Lidocaine Patch Removal TOP SCH (21:26)
[2017-12-15] MEDS: Famotidine 20 MG TAB PO SCH (21:26)
[2017-12-15] MEDS: Rosuvastatin 20 MG TAB PO SCH (21:26)
[2017-12-16] MEDS: Acetaminophen 500 MG TAB PO PRN (05:54)
[2017-12-16] MEDS: Lidocaine 5% Patch TD SCH (07:36)
[2017-12-16] MEDS: predniSONE 50 MG TAB PO SCH (07:37)
[2017-12-16] MEDS: Sodium Bicarbonate Tab 325 MG TAB PO SCH ×2 (07:37→20:01)
[2017-12-16] MEDS: Amlodipine 10 MG TAB PO SCH (07:38)
[2017-12-16] MEDS: Megestrol Acetate 40 MG TAB PO SCH ×3 (07:38→20:01)
[2017-12-16] MEDS: Hydroxychloroquine Sulfate 200 MG TAB PO SCH ×2 (07:38→20:01)
[2017-12-16] MEDS: Calcitriol 0.25 MCG CAP PO SCH (07:38)
[2017-12-16] MEDS: Gabapentin 300 MG CAP PO SCH ×2 (07:38→20:01)
[2017-12-16] MEDS: Saccharomyces boulardii 250 MG CAP PO SCH (07:38)
--- NOTE | 2017-12-16 14:21 | PDOC.PN ---
- Subjective Encounter Start Date: 12/16/17 Encounter Start Time: 12:49 Ms. Burnett was seen today in follow-up of esophagitis, and dysphagia. She says she is beginning to feel better. She denies chest pain, but is feeling very weak. - Objective Resuscitation Status: Resuscitation Status FULL:Full Resuscitation MAR Reviewed: Yes Vital Signs & Weight: Vital Signs (12 hours) Temp Pulse Resp BP Pulse Ox 12/16/17 08:00 97.9 F 79 16 95 12/16/17 07:52 97.9 F 79 16 138/74 92 L 12/16/17 07:38 70 Weight Admit Weight 77 lb Weight 77 lb 2.589 oz Most Recent Monitor Data Heart Rate from ECG 78 NIBP 115/60 NIBP BP-Mean 78 Respiration from ECG 12 SpO2 94 I&O: 12/15/17 12/16/17 12/17/17 06:59 06:59 06:59 Intake Total 250 610 480 Output Total 1400 1140 Balance -1150 -530 480 Result Diagrams: 12/12/17 04:37 12/12/17 04:37 Phys Exam - Physical Examination HEENT: PERRLA Respiratory: no wheezing, no rales, no rhonchi, clear to auscultation bilateral Cardiovascular: RRR, no significant murmur, no rub Gastrointestinal: soft, non-tender, positive bowel sounds Musculoskeletal: no edema Dx/Plan (1) Esophagitis, CMV Code(s): K20.8 - OTHER ESOPHAGITIS; B25.8 - OTHER CYTOMEGALOVIRAL DISEASES Status: Chronic Comment: has circumferential ulcer with prox esophageal mild stricture. bx from EGD negative for malignancy . will perform another esophageal dilation procedure likely tomorow on 12/12/17 (2) Hypertension Code(s): I10 - ESSENTIAL (PRIMARY) HYPERTENSION Status: Chronic Qualifiers: Hypertension type: essential hypertension Qualified Code(s): I10 - Essential (primary) hypertension (3) Myelodysplasia (myelodysplastic syndrome) Code(s): D46.9 - MYELODYSPLASTIC SYNDROME, UNSPECIFIED Status: Chronic (4) Physical deconditioning Code(s): R53.81 - OTHER MALAISE Status: Chronic Comment: PT/OT for mobilization, back to rehab after acute conditions stabilized (5) SLE (systemic lupus erythematosus) Code(s): M32.9 - SYSTEMIC LUPUS ERYTHEMATOSUS, UNSPECIFIED Status: Chronic Qualifiers: Systemic lupus erythematosus type: unspecified Comment: Stable, no acute flare, will decrease dose of plaquenil, prednisone (6) Acute worsening of stage 3 chronic kidney disease Code(s): N18.3 - CHRONIC KIDNEY DISEASE, STAGE 3 (MODERATE) Status: Resolved Comment: Improved with Villanueva drainage, avoid nephrotoxic meds and contrast media - Plan * Ms. Burnett has a history of SLE on immuno-suppressive therapy CMV esophagitis, and myelodysplasia, was admitted on 11/30 with complaints of chest pain. It was originally thought to be possibly cardiac, but has since been attributed an esophageal ulcer. She also was admitted with acute on chronic renal insufficiency which was likely due to volume depletion, and poor oral intake. There was also concern that she may have a vegetation on the mitral valve, CHRISTIAN, was not able to be performed due to her severe Neutropenia. 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 Neutropenia has improved after withholding Valcyte * Dysphagia- this is likely due in part to the esophageal ulcer , and this is improving with twice a day PPI * Acute renal failure- resolving * Neutropenia is also improving * Severe Deconditioning- continue PT/OT * UTI- she can be taken off Omnicef * Await placement in [facility] .
[2017-12-16] MEDS: Famotidine 20 MG TAB PO SCH (20:01)
[2017-12-16] MEDS: Rosuvastatin 20 MG TAB PO SCH (20:01)
[2017-12-16] MEDS: Lidocaine Patch Removal TOP SCH (20:02)
[2017-12-17 07:36] VITALS: TEMP 99
[2017-12-17] MEDS: Saccharomyces boulardii 250 MG CAP PO SCH (09:41)
[2017-12-17] MEDS: Megestrol Acetate 40 MG TAB PO SCH ×3 (09:41→19:09)
[2017-12-17] MEDS: Calcitriol 0.25 MCG CAP PO SCH (09:41)
[2017-12-17] MEDS: Gabapentin 300 MG CAP PO SCH ×2 (09:41→19:08)
[2017-12-17] MEDS: Hydroxychloroquine Sulfate 200 MG TAB PO SCH ×2 (09:41→19:08)
[2017-12-17] MEDS: Sodium Bicarbonate Tab 325 MG TAB PO SCH ×2 (09:41→19:08)
[2017-12-17] MEDS: Lidocaine 5% Patch TD SCH (09:42)
[2017-12-17] MEDS: predniSONE 50 MG TAB PO SCH (09:42)
[2017-12-17] MEDS: Amlodipine 10 MG TAB PO SCH (09:43)
[2017-12-17 11:34] VITALS: BP 119/69
[2017-12-17] MEDS ORDERED: Hydrocortisone Acetate 25 MG Suppository PR PRN (16:52)
--- NOTE | 2017-12-17 16:58 | PDOC.PN ---
- Subjective Encounter Start Date: 12/17/17 Encounter Start Time: 16:52 Ms. Burnett was seen today in follow-up. She is complaining of rectal pain, which she says has been fairly constant. She also notes the sense that she needs to defecate. - Objective Resuscitation Status: Resuscitation Status FULL:Full Resuscitation MAR Reviewed: Yes Vital Signs & Weight: Vital Signs (12 hours) Temp Pulse Resp BP BP BP Pulse Ox 12/17/17 09:43 70 12/17/17 09:07 119/69 126/70 12/17/17 07:37 99 F 70 16 12/17/17 07:35 99 F 70 16 122/73 92 L Pulse Ox 12/17/17 09:43 12/17/17 09:07 92 L 12/17/17 07:37 12/17/17 07:35 Weight Admit Weight 77 lb Weight 77 lb 2.589 oz Most Recent Monitor Data Heart Rate from ECG 78 NIBP 115/60 NIBP BP-Mean 78 Respiration from ECG 12 SpO2 94 I&O: 12/16/17 12/17/17 12/18/17 06:59 06:59 06:59 Intake Total 610 720 Output Total 1140 440 Balance -530 280 Result Diagrams: 12/12/17 04:37 12/12/17 04:37 Phys Exam - Physical Examination HEENT: PERRLA Respiratory: no wheezing, no rales, no rhonchi, clear to auscultation bilateral Cardiovascular: RRR, no significant murmur, no rub Gastrointestinal: soft, non-tender, positive bowel sounds + large external hemorrhoid, non thrombosed, + firm internal hemorrhoid which was tender to palpation, stool is light brown, no masses Musculoskeletal: no edema Dx/Plan (1) Esophagitis, CMV Code(s): K20.8 - OTHER ESOPHAGITIS; B25.8 - OTHER CYTOMEGALOVIRAL DISEASES Status: Chronic Comment: has circumferential ulcer with prox esophageal mild stricture. bx from EGD negative for malignancy . will perform another esophageal dilation procedure likely tomorow on 12/12/17 (2) Hypertension Code(s): I10 - ESSENTIAL (PRIMARY) HYPERTENSION Status: Chronic Qualifiers: Hypertension type: essential hypertension Qualified Code(s): I10 - Essential (primary) hypertension (3) Myelodysplasia (myelodysplastic syndrome) Code(s): D46.9 - MYELODYSPLASTIC SYNDROME, UNSPECIFIED Status: Chronic (4) Physical deconditioning Code(s): R53.81 - OTHER MALAISE Status: Chronic Comment: PT/OT for mobilization, back to rehab after acute conditions stabilized (5) SLE (systemic lupus erythematosus) Code(s): M32.9 - SYSTEMIC LUPUS ERYTHEMATOSUS, UNSPECIFIED Status: Chronic Qualifiers: Systemic lupus erythematosus type: unspecified Comment: Stable, no acute flare, will decrease dose of plaquenil, prednisone (6) Acute worsening of stage 3 chronic kidney disease Code(s): N18.3 - CHRONIC KIDNEY DISEASE, STAGE 3 (MODERATE) Status: Resolved Comment: Improved with Villanueva drainage, avoid nephrotoxic meds and contrast media (7) Internal hemorrhoids without complication Code(s): K64.8 - OTHER HEMORRHOIDS Status: Acute - Plan * Internal Hemorrhoid- will treat symptomatically with Anusol * Esophagitis- improving * Acute kidney injury- resolved * Severe Deconditioning- continue PT/OT * Awaiting Rehab transfer.
[2017-12-17] MEDS: Rosuvastatin 20 MG TAB PO SCH (19:08)
[2017-12-17] MEDS: Famotidine 20 MG TAB PO SCH (19:09)
[2017-12-17] MEDS: Lidocaine Patch Removal TOP SCH (19:09)
--- NOTE | 2017-12-18 04:05 | DIS ---
DATE OF ADMISSION: 11/30/2017 DATE OF DISCHARGE: 12/17/2017 PRIMARY CARE PHYSICIAN: Dr. Hernandez. DISCHARGE DISPOSITION: To inpatient rehabilitation. DISCHARGE DIAGNOSES: 1. Esophageal ulcer. 2. History of Cytomegalovirus esophagitis. 3. Urinary tract infection. 4. Hypertension. 5. Myelodysplasia. 6. Severe deconditioning. 7. Moderate protein-calorie malnutrition. 8. Acute renal failure, resolved. 9. Mitral valve vegetation. 10. History of adrenal insufficiency. 11. History of splenectomy. DISCHARGE MEDICATIONS: Please note that the patient has been taken off Valcyte due to leukopenia. S he is to continue sodium bicarbonate 650 mg twice daily, Mylicon 80 mg 3 times a day, Florastor 250 m g daily, Crestor 20 mg at bedtime, prednisone 25 mg daily, Protonix 40 mg twice a day, metoprolol tar trate 100 mg daily, Megace 40 mg t.i.d., Imodium 2 mg as directed, lactulose 20 grams 3 times a day a s needed, Plaquenil 200 mg 1-1/2 tablets daily, Anusol suppository 25 mg per rectum twice a day as ne eded, Neurontin 300 mg twice daily, Lasix 20 mg every other day, Aranesp 60 mcg weekly, vitamin D3 of 5000 units daily, calcium carbonate 500 mg q.i.d., calcitriol 0.25 mcg daily, amlodipine 10 mg daily , and benzocaine menthol 1 twice a day. PROCEDURES DONE DURING ADMISSION: The patient had an echocardiogram in which it showed an ejection f raction was estimated at 55%-60%. There was grade 1/3 diastolic dysfunction. There was a small flai ling mass on the chordae of the anterior leaflet, which could represent a ruptured chordae or small v egetation or mass. The echo was done on 12/01/2017. The patient had a modified barium swallow showi ng penetration and aspiration as above and this was with multiple consistencies including thin liquid s and nectar thick liquids. The patient had a CT-guided biopsy of the bone marrow, the results of wh ich showed hypercellularity. There was no significant fibrosis. Fish studies for myelodysplastic sy ndrome were negative. There was a normal female karyotype. The patient also had a repeat echocardio gram and this one was done on 12/14/2017. The ejection fraction was estimated at 55%-60%. There was grade 1/3 diastolic dysfunction, trivial aortic regurgitation, mild mitral regurgitation, and there was a small swelling mass of the anterior leaflets, which was unchanged from the previous study. CODE STATUS: FULL CODE. ALLERGIES: IRON and SULFA as well as MAGNESIUM SULFATE. HOSPITAL COURSE: Ms. Burnett is a pleasant 72-year-old female who presented to the emergency room w ith complaints of chest pain. She was also hyperkalemic and demonstrated a creatinine is 2.5. She w as admitted, therefore with hyperkalemia as well as acute renal failure. The chest pain that was chana ntually discovered to be due to an esophageal ulcer. This was not felt to be due to CMV, and she was placed on Protonix for this. She did have a biopsy of the esophagus, in which the cytology was nega tive for CMV as well as HSV 1 and 2. She improved with Protonix and her symptoms of chest pain and d ysphagia slowly began to improve during her hospital stay. She developed once again acute renal fail ure. This was on admission likely due to poor oral intake and volume depletion. This also corrected and her creatinine at the time of discharge was 1.0. The hypokalemia was also corrected and during the evaluation for chest pain, an echo was done in which the possible vegetation was found. Unfortun ately, she was not able to tolerate having a transesophageal echo performed. The repeat echo was don e and her marketing mgr felt that this finding was likely related to a sterile vegetation likely due t o lupus. During her hospital stay, she was severely deconditioned and as a result underwent therapy with PT as well as OT and was ultimately transferred to the inpatient rehabilitation for reconditioni ng.
== END 2017-12-17 20:23 | DRG 871 ==
LOC: ERS 14:18 → CCU 16:30 → T4-A 12-01 11:50
PROVIDERS: ADMIT Family Medicine; ATTEND Family Medicine
PROC: 0DJ08ZZ Inspection of Upper Intestinal Tract, Via Natural or Artificial Opening Endoscopic (ICD-10-PCS; principal; 2017-12-12)
DX: A41.9 Sepsis, unspecified organism (principal); E43 Unspecified severe protein-calorie malnutrition; N17.9 Acute kidney failure, unspecified; N39.0 Urinary tract infection, site not specified; D61.818 Other pancytopenia; B25.9 Cytomegaloviral disease, unspecified; A08.39 Other viral enteritis; K22.10 Ulcer of esophagus without bleeding; N18.3 Chronic kidney disease, stage 3 (moderate); E87.5 Hyperkalemia; D70.9 Neutropenia, unspecified; M32.9 Systemic lupus erythematosus, unspecified; R33.9 Retention of urine, unspecified; I77.1 Stricture of artery; R65.20 Severe sepsis without septic shock; Z88.2 Allergy status to sulfonamides; Z79.899 Other long term (current) drug therapy; Z79.51 Long term (current) use of inhaled steroids; R13.10 Dysphagia, unspecified; K44.9 Diaphragmatic hernia without obstruction or gangrene; K22.2 Esophageal obstruction
CPT/HCPCS: 20225; 36415; 36416; 51701; 71045; 74230; 77012; 80048; 80053; 80061; 81001; 82040; 82553; 83735; 83880; 84134; 84484; 85007; 85014; 85018; 85025; 85027; 85049; 85097; 85610; 85652; 85730; 86140; 86160; 86225; 87077; 87086; 87186; 87324; 87449; 87497; 88184; 88237; 88264; 88280; 88305; 88311; 88312; 88313; 88341; 88342; 93005; 93306; 94640; 94760; 96361; 96374; 96375; 99152; 99153; A4216; A4353; G8978-GP-CL; G8978-GP-CM; G8979-GP-CJ; G8987-GO-CK; G8987-GO-CL; G8988-GO-CI; G8988-GO-CJ; G8996-GN-CI; G8996-GN-CJ; G8997-GN-CI; J0696; J1650; J1815; J2001; J2250; J2543; J2704; J3010; J7050; J7070; J7620; J8499; Q0162; Q4081; S0179

== ENCOUNTER 2018-01-08 11:31 | Inpatient (IN) | payer MEDICARE, OTHER ==
--- NOTE | 2018-01-08 12:32 | RAD ---
CHEST ONE VIEW: History: Weakness, altered mental status. Comparison: 11-30-17 FINDINGS: Normal cardiac silhouette. The pulmonary vessels and hilum are normal. Blunting of the left costophre todd angle. Patchy opacities involving the right hemithorax, similar to the previous examination. Pneu mothorax is not appreciated. IMPRESSION: Redemonstration of patchy opacities involving the left hemithorax. Better interrogation with CT is re commended. POS: [facility]
[2018-01-08 12:56] LABS: ALT (SGPT) 125 U/L (8-55); AST (SGOT) 139 U/L (5-34); Albumin 2.7 g/dL (3.4-4.8); Alkaline Phosphatase 828 U/L (40-150); Anion Gap 17 mmol/L (10-20); BUN (Urea Nitrogen) 65 mg/dL (9.8-20.1); Bilirubin, Total 0.7 mg/dL (0.2-1.2); CK (CPK) 636 U/L (29-168); Calc. Creatinine Clearance 0 mL/min (70-130); Calcium 7.5 mg/dL (7.8-10.44); Carbon Dioxide 17 mmol/L (23-31); Chloride 112 mmol/L (98-107); Estimated GFR-MDRD 13; Glucose 85 mg/dL (80-115); Lipase 291 U/L (8-78); Potassium 4.2 mmol/L (3.5-5.1); Protein, Total 4.7 g/dL (6.0-8.3); Sodium 142 mmol/L (136-145)
[2018-01-08] MEDS ORDERED: Dexamethasone 4 mg/ml Vial ONE (12:58)
[2018-01-08 13:13] LABS: Troponin I 0.062 ng/mL (< 0.028)
[2018-01-08 14:58] LABS: Anisocytosis SLIGHT = 6-15 cells (100X) (0-5/hpf); Band 8 % (5-11); Burr Cells SLIGHT = 2-5 cells (100X) (0-1/hpf); Hemoglobin 8.4 g/dL (12.0-16.0); Howell Jolly Bodies SLIGHT = 1-2 cells (100X) (None Seen); Large Platelets SLIGHT; Lymphocytes 3 % (21-51); MDiff Complete? YES; Mean Platelet Volume 13.8 fL (7.4-10.4); Monocytes 1 % (0-10); Neutrophil 88 % (42-75); Nucleated RBC 1 % (0); Ovalocytes SLIGHT = 2-5 cells (100X) (0-1/hpf); PLT Morphology Comment Appears Decreased; Pappenheimer Bodies SLIGHT = 1-2 cells (100X) (None Seen); Platelet Count 75 thou/uL (130-400); Poikilocytosis SLIGHT = 6-15 cells (100X) (0-5/hpf); Polychromasia SLIGHT = 2-3 cells (100X) (0-2/hpf); RBC Distribution Width 16.6 % (11.5-14.5); Red Blood Cell (RBC) Count 2.78 mill/uL (4.20-5.40); Schistocytes SLIGHT = 2-5 cells (100X) (0-1/hpf)
--- NOTE | 2018-01-08 15:02 | ULT ---
RIGHT UPPER QUADRANT ABDOMINAL ULTRASOUND: COMPARISON: None. HISTORY: Right upper quadrant abdominal pain. TECHNIQUE: Multiplanar, mcfarland scale, and color Doppler images were obtained in a right upper quadrant abdominal u ltrasound. FINDINGS: The liver is normal in echogenicity without focal lesions or intrahepatic ductal dilatation. The gal lbladder is normal without stones, sludge, gallbladder wall thickening, or pericholecystic fluid. Th e common bile duct is normal measuring 7 mm. The visualized portions of the pancreas are unremarkable. The right kidney is normal in echogenicity without hydronephrosis or calculus and measures 9.2 cm in length. IMPRESSION: Unremarkable exam. POS: [facility]
[2018-01-08] MEDS ORDERED: Ondansetron HCl/PF 4 MG/2 ML Vial IVP PRN ×2 (15:23→16:59)
[2018-01-08] MEDS ORDERED: Sodium Chloride 0.9% 1,000 ML IV SCH (15:23)
[2018-01-08] MEDS ORDERED: Ondansetron ODT 4 MG TAB SL PRN (15:23)
[2018-01-08] MEDS ORDERED: HYDROcodone/Acetaminophen 5/325 mg Tablet PO PRN ×2 (16:59)
[2018-01-08] MEDS ORDERED: Ondansetron ODT 4 MG TAB PO PRN (16:59)
[2018-01-08] MEDS: Hydrocortisone Sod Succ/PF 100 mg/2 ml Vial IVP SCH (20:22)
[2018-01-08] MEDS: Sodium Chloride 0.9% 1,000 ML IV SCH ×2 (20:56→23:04)
[2018-01-08] MEDS: Gabapentin 300 MG CAP PO SCH (20:57)
[2018-01-08] MEDS ORDERED: Famotidine/PF 20 mg/2ml Vial SLOW IVP SCH (21:00)
--- NOTE | 2018-01-09 01:17 | CON ---
DATE OF CONSULTATION: 01/08/2018 PRIMARY CARE PHYSICIAN: Sergio Sen M.D. REASON FOR CONSULT: History of urinary retention and CIC. HISTORY OF PRESENT ILLNESS: Ms. Burnett is a 72-year-old female well known to me with history of left large angiomyolipoma status post embolization in 2009 in [place], [place], underwent repeat selective renal artery embolization at [facility] by Dr. Massey. This was performed in 2013. She had no prior history of urinary retention. The patient has been in the hospital over the last 3 months on multiple occasions due to deconditioned status, complicated by a decreased oral intake, renal insufficiency, CMV esophagitis colitis and overall deconditioned status. She previously also had history of C. diff, Dr. Phillips has been following her as well. 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 This has resolved, she is currently being managed by family with CIC 4 times a day which family is performing uneventfully. The patient has had significant decondition progression, with decreased oral intake, cachectic. She has had decreased oral intake, she presents with prerenal exacerbation of her renal insufficiency. Per family, she has had terrible oral intake, has recently seen Dr. Whitaker for consultation for G-tube placement. She is currently admitted for generalized feeling of weakness, malaise. Since I last saw her, patient has progressed significantly and decondition status appears quite cachectic. 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 PAST SURGICAL HISTORY: Splenectomy, total abdominal hysterectomy, left renal angiomyolipoma selective embolization on 11/2013 at [facility]. Prior history of cystoscopy, bladder wash negative 11/2015. CURRENT MEDICATIONS: Include Zofran, Decadron. ALLERGIES: SULFA. PHYSICAL EXAMINATION: VITAL SIGNS: In the ER demonstrates 107/60, 87, 14. She was afebrile. She denies flank pain. GENERAL: Patient is severely cachectic, malnourished, frail female, family/ daughter at bedside. I did review the voiding diary, patient has had decreased urine output approximately 200 to 300 mL over the last 24 hours. HEENT: Dry oropharynx. HEART: Regular rate. LUNGS: Clear. ABDOMEN: Soft. No rigidity, no rebound, no suprapubic tenderness. GENITOURINARY: Demonstrates severe atrophic vaginitis. EXTREMITIES: No cyanosis, clubbing or edema. SKIN: Multiple petechiae lesions are noted. NEUROLOGIC: No gross hematoma. PERTINENT LABS AND IMAGING: White count 7, hemoglobin 8.4, platelets 75, creatinine 3.4. Her baseline creatinine is variable from 2.0 to 0.9. Abdominal ultrasound demonstrates no evidence of right hydronephrosis. IMPRESSION/PLAN: 1. Ms. Burnett is a 72-year-old female with history of chronic renal insufficiency, left atrophic kidney, history of left angiomyolipoma status post embolization 2. History of emphysematous cystitis with urinary retention. Cystitis has resolved, urinary retention is managed by family with CICs 4 times a day which they have been performing uneventfully. Decrease urine output and renal insufficiency is prerenal as she has very significant decrease in oral intake and she is cachectic. Recommend GI consult for PEG tube placement, as they were considering this as an outpatient. From a urologic perspective, due to severely deconditioned status, prerenal etiology, resulting in decreased urine output, I discussed option with daughter regarding indwelling urethral Villanueva catheter until her fluid status is improved. She agrees to this. As such indwelling Villanueva catheter may be placed for strict I's and O's, when patient has improved medically, making adequate urine output ready for discharge. Villanueva catheter can be removed, and will be converted back to CIC. They do have an elective followup with me in February. A routine urine culture is not indicated as she is in CICs. Previously followed by Dr. Phillips and prolonged antibiotic therapy is not advised that she has history of Clostridium difficile. Overall, deconditioned status, prognosis is guarded. Discussed with daughter regarding consideration for palliative hospice care. She is open to this. We will initiate referral. KADEN
[2018-01-09] MEDS: Hydrocortisone Sod Succ/PF 100 mg/2 ml Vial IVP SCH ×3 (01:25→17:11)
[2018-01-09] MEDS: Sodium Chloride 0.9% 1,000 ML IV SCH ×5 (03:56→21:13)
[2018-01-09 05:10] LABS: ALT (SGPT) 164 U/L (8-55); AST (SGOT) 308 U/L (5-34); Albumin 2.5 g/dL (3.4-4.8); Alkaline Phosphatase 936 U/L (40-150); Anion Gap 17 mmol/L (10-20); BUN (Urea Nitrogen) 65 mg/dL (9.8-20.1); Bilirubin, Total 0.8 mg/dL (0.2-1.2); Calc. Creatinine Clearance 11 mL/min (70-130); Calcium 6.7 mg/dL (7.8-10.44); Carbon Dioxide 16 mmol/L (23-31); Chloride 115 mmol/L (98-107); Estimated GFR-MDRD 13; Globulin 1.8 g/dL (2.4-3.5); Glucose 109 mg/dL (80-115); Magnesium 1.8 mg/dL (1.6-2.6); Potassium 4.5 mmol/L (3.5-5.1); Protein, Total 4.3 g/dL (6.0-8.3); Sodium 143 mmol/L (136-145)
[2018-01-09 05:53] LABS: Band 24 % (5-11); Hemoglobin 8.6 g/dL (12.0-16.0); Lymphocytes 16 % (21-51); MDiff Complete? YES; Mean Corpuscular HGB CONC 30.1 g/dL (32.0-36.0); Mean Corpuscular Hemoglobin 29.7 pg (27.0-31.0); Mean Corpuscular Volume 98.5 fL (78.0-98.0); Mean Platelet Volume 10.6 fL (7.4-10.4); Neutrophil 60 % (42-75); PLT Morphology Comment Appears Decreased; Platelet Count 77 thou/uL (130-400); RBC Distribution Width 16.6 % (11.5-14.5); Red Blood Cell (RBC) Count 2.89 mill/uL (4.20-5.40)
--- NOTE | 2018-01-09 08:17 | PRG ---
DATE OF SERVICE: 01/09/2018 SUBJECTIVE: The patient is alert, awake, daughter at bedside. PHYSICAL EXAMINATION: VITAL SIGNS: Stable. She is afebrile. Urine output approximately 150 over the last 8 hours concentrated yellow. ABDOMEN: Soft. No suprapubic tenderness. LABORATORY DATA: White count 7, hemoglobin 8.6, platelets 77, 24 bands. BUN 65 , creatinine 3.48. IMPRESSION AND PLAN: 1. Ms. Burnett is a 72-year-old female currently admitted for generalized weakness, fatigue. 2. History of chronic renal insufficiency, nonfunctioning left kidney, atrophic secondary to large angiomyolipoma status post embolization. 3. History of emphysematous cystitis with urinary retention. Cystitis has been resolved, due to persistent urinary retention, the patient is managed at home with excellent family support and CICs 4 times a day. Currently, she has decreased urine output, secondary to prerenal renal disease. Continue indwelling Villanueva catheter now, to monitor strict I's and O's, routine UA C&S is not indicated, as she has been on CICs, has an indwelling Villanueva catheter ; bacteriuria is anticipated. Asymptomatic bacteriuria does not warrant antibiotic treatment. plan discussed with patient and family at bedside, when the patient has medically improved, ready to be discharged home, Villanueva catheter can be removed and she will resume her CICs at home. 4. Overall, deconditioned status, progressive. Prognosis guarded. I did consult palliative care yesterday, meeting pending. Discharge when medically stable, likely require rehab facility. She has a followup with me in the chart. There is no acute urologic issues. I will be off service for a week , if acute issues, concrete truck driver is to be notified for p.r.n. issues. With the patient is disposition to home her rehabilitation, CIC 4 times a day was continue. Daughter informed and agrees. KADEN
[2018-01-09] MEDS: Megestrol Acetate 800 MG/20 ML UDCUP PO SCH (08:56)
[2018-01-09] MEDS: Hydroxychloroquine Sulfate 200 MG TAB PO SCH (08:56)
[2018-01-09] MEDS: Calcitriol 0.25 MCG CAP PO SCH (08:56)
[2018-01-09] MEDS: Gabapentin 300 MG CAP PO SCH ×2 (08:57→21:12)
[2018-01-09] MEDS ORDERED: Sodium Chloride 0.9% 1,000 ML IV SCH (09:15)
--- NOTE | 2018-01-09 12:13 | CON ---
DATE OF CONSULTATION: 01/09/2018 CONSULTING PHYSICIAN: Dr. Estevan Bauer REASON FOR CONSULTATION: Acute kidney injury. REASON FOR ADMISSION: Weakness. HISTORY OF PRESENT ILLNESS: A 72-year-old female with history of lupus , osteoarthritis, and CKD, who came to the hospital with weakness. The patient is not eating very well for the last few days before admission and was found to be lethargic and was brought to the hospital and was found to have acute kidney injury. The patient was started on IV fluids. The patient also had a urology evaluation. The patient is eating better. She is very cachectic and very lethargic. No nausea or vomiting reported. No diarrhea. No chest pain or palpitations. PAST MEDICAL HISTORY: Positive for lupus, arthritis, osteoarthritis, left angiomyolipoma, ITP, adrenal insufficiency, emphysematous cystitis, CMV colitis and bowel surgery, splenectomy, hysterectomy, left angiomyolipoma embolization, cystoscopy. HOME MEDICATIONS: Current list provides MiraLax, Plaquenil, Crestor, vitamin D3 , Megace, Norvasc, Neurontin. ALLERGIES: IRON, SULFA, MAGNESIUM SULFATE. SOCIAL HISTORY: No smoking, alcohol, drugs. FAMILY HISTORY: No history of kidney disease. REVIEW OF SYSTEMS: The following complete review of systems was negative, unless otherwise mentioned in the HPI or below: Constitutional: Weight loss or gain, ability to conduct usual activities. Skin: Rash, itching. Eyes: Double vision, pain. ENT/Mouth: Nose bleeding, neck stiffness, pain, tenderness. Cardiovascular: Palpitations, dyspnea on exertion, orthopnea. Respiratory: Shortness of breath, wheezing, cough, hemoptysis, fever or night sweats. Gastrointestinal: Poor appetite, abdominal pain, heartburn, nausea, vomiting, constipation, or diarrhea. Genitourinary: Urgency, frequency, dysuria, nocturia. Musculoskeletal: Pain, swelling. Neurologic/Psychiatric: Anxiety, depression. Allergy/Immunologic: Skin rash, bleeding tendency. PHYSICAL EXAMINATION: GENERAL: This is an elderly female in no apparent distress. VITAL SIGNS: Temperature 97, pulse 94, respirations 16, blood pressure 137/60. HEENT: Atraumatic, normocephalic. Oral mucosa is moist. NECK: Supple, no masses. CARDIOVASCULAR: S1, S2 heard. RESPIRATORY: Clear. ABDOMEN: Soft. MUSCULOSKELETAL: 1-2+ edema. DERMATOLOGIC: No skin rash. NEUROLOGIC: Alert, awake. PSYCHIATRIC: Mood and affect normal. LABORATORY AND X-RAY FINDINGS: Hemoglobin is 8.6, potassium 4.5, BUN 65, creatinine 3.4%. Her baseline creatinine is around 1.4 to 2. ASSESSMENT AND PLAN: 1. Acute kidney injury on chronic kidney stage 3. Renal function is worsening , most likely folate depletion. I agree with volume rehydration as tolerated. 2. Metabolic acidosis. Continue on intravenous fluids. 3. Elevated liver enzymes. 4. Hypoalbuminemia. 5. Edema, chronic. 6. Anemia, chronic, rule out any bleed. Family at the bedside updated. Overall, long-term prognosis is guarded. I agree with palliative care consult and we will continue to follow. Avoid nephrotoxins and gently hydrate as tolerated. Monitor cardiorespiratory status closely and we will follow. Plan discussed with Dr. Bauer. We will follow. Thank you for the consult. KADEN
[2018-01-09] MEDS: Acetaminophen 325 MG TAB PO PRN ×2 (13:01→21:15)
[2018-01-09] MEDS: ALPRAZolam 0.25 MG TAB PO PRN (19:03)
[2018-01-09] MEDS ORDERED: Famotidine 20 MG TAB PO SCH (21:00)
[2018-01-10] MEDS: Sodium Chloride 0.9% 1,000 ML IV SCH ×3 (00:54→10:33)
[2018-01-10] MEDS: Hydrocortisone Sod Succ/PF 100 mg/2 ml Vial IVP SCH ×2 (01:42→09:48)
[2018-01-10] MEDS: Acetaminophen 325 MG TAB PO PRN (05:46)
[2018-01-10] MEDS: ALPRAZolam 0.25 MG TAB PO PRN (05:46)
[2018-01-10 08:55] LABS: ALT (SGPT) 123 U/L (8-55); AST (SGOT) 123 U/L (5-34); Albumin 2.5 g/dL (3.4-4.8); Alkaline Phosphatase 753 U/L (40-150); Anion Gap 14 mmol/L (10-20); BUN (Urea Nitrogen) 59 mg/dL (9.8-20.1); Bilirubin, Total 0.7 mg/dL (0.2-1.2); Calc. Creatinine Clearance 13 mL/min (70-130); Calcium 6.3 mg/dL (7.8-10.44); Carbon Dioxide 13 mmol/L (23-31); Chloride 121 mmol/L (98-107); Estimated GFR-MDRD 14; Globulin 1.7 g/dL (2.4-3.5); Glucose 136 mg/dL (80-115); Magnesium 1.4 mg/dL (1.6-2.6); Protein, Total 4.2 g/dL (6.0-8.3); Sodium 144 mmol/L (136-145)
[2018-01-10 09:01] LABS: Acanthocytes MODERATE= 6-15 cells (100X) (None Seen); Band 5 % (5-11); Bite Cells SLIGHT = 2-5 cells (100X) (0-1/hpf); Burr Cells SLIGHT = 2-5 cells (100X) (0-1/hpf); Hypochromia SLIGHT = 6-15 cells (100X) (0-5/hpf); Lymphocytes 3 % (21-51); MDiff Complete? YES; Mean Corpuscular HGB CONC 29.5 g/dL (32.0-36.0); Mean Corpuscular Hemoglobin 29.5 pg (27.0-31.0); Mean Corpuscular Volume 99.8 fL (78.0-98.0); Mean Platelet Volume 11.7 fL (7.4-10.4); Monocytes 4 % (0-10); Neutrophil 88 % (42-75); Nucleated RBC 1 % (0); Platelet Count 82 thou/uL (130-400); Polychromasia SLIGHT = 2-3 cells (100X) (0-2/hpf); RBC Distribution Width 16.7 % (11.5-14.5); White Blood Cell (WBC) Count 7.5 thou/uL (4.8-10.8)
[2018-01-10] MEDS ORDERED: Furosemide 20 MG/2 ML VIAL SLOW IVP SCH (10:15)
[2018-01-10] MEDS: Hydroxychloroquine Sulfate 200 MG TAB PO SCH (10:30)
[2018-01-10] MEDS: Gabapentin 300 MG CAP PO SCH (10:30)
[2018-01-10] MEDS: Calcitriol 0.25 MCG CAP PO SCH (10:30)
[2018-01-10] MEDS: Megestrol Acetate 800 MG/20 ML UDCUP PO SCH (10:31)
[2018-01-10 11:57] VITALS: TEMP 96.5
--- NOTE | 2018-01-10 13:26 | PRG ---
DATE OF SERVICE: 01/10/2018 SUBJECTIVE: The patient was seen and examined at the bedside. Multiple family members available. S he had a rough night last night due to shortness of breath. She remains swollen. No significant imp rovement in the urine output. She was given Lasix and IV fluids was reduced. She remains very dewey rgic this morning, not able to respond very well. OBJECTIVE: GENERAL: This is an elderly female, very lethargic, somnolent. VITAL SIGNS: Temperature 96.4, pulse 84, respiratory rate 18, blood pressure 113/56. She was hypoth ermic in the morning at 93.1. HEENT: Atraumatic, normocephalic. NECK: Supple. CARDIOVASCULAR: S1, S2 heard. RESPIRATORY: Clear. GASTROINTESTINAL: Abdomen is soft. MUSCULOSKELETAL: 1-2+ edema. DERMATOLOGIC: No skin rash. NEUROLOGIC: Somnolent and lethargic. LABORATORY DATA: Potassium 4.0, BUN is 59, creatinine is 3.20. ASSESSMENT AND PLAN: 1. Acute kidney injury on chronic kidney disease stage 3 with no significant improvement. Labs look s better because most likely from dilutional factor. She is not making much urine and remains edema. 2. Edema, which is worsening. 3. Metabolic acidosis. 4. Anemia, chronic. 5. Hypoalbuminemia. 6. Metabolic acidosis getting worse. The patient's overall prognosis is very, very poor and almost probably having some agonal breat hs. I had a detailed discussion with the family about considering palliative care. Plan also discus sed with bedside nurse and also Dr. Bauer. I encouraged the family to talk with the primary team to make her comfort measures today. The patient's prognosis is very poor as stated above. We will fol low. The patient remains poor candidate for dialysis.
--- NOTE | 2018-01-10 14:11 | PDOC.PN ---
- Subjective Encounter Start Date: 01/09/18 Encounter Start Time: 10:50 Pt more awake and alert today, ate some breakfast. very little UOP, about 150ml since admit. No F/C, no N/V/d/c. Pt only had 500ml bolus in ER, not as i had been told. All systems reviewed and neg x as above - Objective Resuscitation Status: Resuscitation Status DNR:Do Not Resuscitate MAR Reviewed: Yes Vital Signs & Weight: Vital Signs (12 hours) Temp Pulse Resp BP Pulse Ox 01/10/18 11:54 96.5 F L 94 20 103/57 L 93 L 01/10/18 09:47 96.4 F L 01/10/18 08:00 93.1 F L 85 22 H 90 L 01/10/18 07:40 93.1 F L 85 22 H 113/56 L 90 L 01/10/18 06:00 91.7 F L 01/10/18 03:16 87 22 H 128/66 98 Weight Admit Weight 99 lb Weight 110 lb 14.4 oz I&O: 01/09/18 01/10/18 01/11/18 06:59 06:59 06:59 Intake Total 1920 5631 Output Total 100 200 Balance 1820 5431 Result Diagrams: 01/10/18 08:16 01/10/18 08:16 Additional Labs: Accuchecks 01/09/18 18:11 POC Glucose 156 H Radiology Reviewed by me: Yes EKG Reviewed by me: Yes Phys Exam - Physical Examination Constitutional: NAD HEENT: PERRLA, moist MMs, sclera anicteric, oral pharynx no lesions Neck: no nodes, no JVD, supple, full ROM Respiratory: no wheezing, no rales, no rhonchi, clear to auscultation bilateral Cardiovascular: RRR, no significant murmur, no rub Gastrointestinal: soft, non-tender, no distention, positive bowel sounds Musculoskeletal: pulses present, edema present Neurological: moves all 4 limbs Lymphatic: no nodes Psychiatric: normal affect Skin: no rash, normal turgor, cap refill <2 seconds Dx/Plan (1) Moderate dehydration Code(s): E86.0 - DEHYDRATION Status: Acute Comment: rebolus and increase maintenance fluids overnight (2) LUIS FELIPE (acute kidney injury) Code(s): N17.9 - ACUTE KIDNEY FAILURE, UNSPECIFIED Status: Acute Comment: Renal consulted, suspect form dehydration (3) Failure to thrive Code(s): [id number] - Status: Chronic Qualifiers: Failure to thrive age range: in adult Qualified Code(s): R62.7 - Adult failure to thrive (4) CKD (chronic kidney disease), stage III Code(s): N18.3 - CHRONIC KIDNEY DISEASE, STAGE 3 (MODERATE) Status: Chronic (5) Chronic anemia Code(s): D64.9 - ANEMIA, UNSPECIFIED Status: Chronic (6) Colitis, CMV Code(s): A08.39 - OTHER VIRAL ENTERITIS; B25.9 - CYTOMEGALOVIRAL DISEASE, UNSPECIFIED Status: Chronic Comment: history off. Off of Valcyte due to BM suppression (7) Myelodysplasia (myelodysplastic syndrome) Code(s): D46.9 - MYELODYSPLASTIC SYNDROME, UNSPECIFIED Status: Chronic (8) Physical deconditioning Code(s): R53.81 - OTHER MALAISE Status: Chronic Comment: PT/OT for mobilization, back to rehab after acute conditions stabilized (9) Protein-calorie malnutrition, severe Code(s): E43 - UNSPECIFIED SEVERE PROTEIN-CALORIE MALNUTRITION Status: Chronic (10) SLE (systemic lupus erythematosus) Code(s): M32.9 - SYSTEMIC LUPUS ERYTHEMATOSUS, UNSPECIFIED Status: Chronic Qualifiers: Systemic lupus erythematosus type: unspecified Systemic lupus erythematosus organ involvement: unspecified Qualified Code(s): M32.9 - Systemic lupus erythematosus, unspecified Comment: Stable, no acute flare, on plaquenil, prednisone - Plan cont current plan of care, plan discussed w/ family, PT/OT, speech therapy, respiratory therapy, out of bed/ambulate * . check UA and UCx
--- NOTE | 2018-01-10 14:16 | PDOC.PN ---
- Subjective Encounter Start Date: 01/10/18 Encounter Start Time: 08:25 Pt much more somnolent, almost agonal breathing. Anxious overnight and yesterday afternoon, got low-dose xanax/. UOP bare picked up, 200/24 hours. No f/c, hypothermic, requiring Shiva-Hugger to improve from 91 to 93degreees. No CP, no n/v/D/C. no other acute events. Discussed with family, will wait for labs and nephrology, but considering comfort measures ROS not available due to somnolence - Objective Resuscitation Status: Resuscitation Status DNR:Do Not Resuscitate MAR Reviewed: Yes Vital Signs & Weight: Vital Signs (12 hours) Temp Pulse Resp BP Pulse Ox 01/10/18 11:54 96.5 F L 94 20 103/57 L 93 L 01/10/18 09:47 96.4 F L 01/10/18 08:00 93.1 F L 85 22 H 90 L 01/10/18 07:40 93.1 F L 85 22 H 113/56 L 90 L 01/10/18 06:00 91.7 F L 01/10/18 03:16 87 22 H 128/66 98 Weight Admit Weight 99 lb Weight 110 lb 14.4 oz I&O: 01/09/18 01/10/18 01/11/18 06:59 06:59 06:59 Intake Total 1920 5631 Output Total 100 200 Balance 1820 5431 Result Diagrams: 01/10/18 08:16 01/10/18 08:16 Additional Labs: Accuchecks 01/09/18 18:11 POC Glucose 156 H Phys Exam - Physical Examination Constitutional: NAD HEENT: PERRLA, moist MMs, sclera anicteric, oral pharynx no lesions Neck: no nodes, no JVD, supple, full ROM Respiratory: no wheezing, no rales, no rhonchi, clear to auscultation bilateral Cardiovascular: RRR, no significant murmur, no rub Gastrointestinal: soft, non-tender, no distention, positive bowel sounds Musculoskeletal: edema present Neurological: moves all 4 limbs Lymphatic: no nodes Skin: no rash, normal turgor, cap refill <2 seconds Dx/Plan (1) Moderate dehydration Code(s): E86.0 - DEHYDRATION Status: Acute Comment: decrease fluids, discuss with renal. third spacing due to low albumin (2) LUIS FELIPE (acute kidney injury) Code(s): N17.9 - ACUTE KIDNEY FAILURE, UNSPECIFIED Status: Acute Comment: Renal consulted, suspect form dehydration. slighlt improved. give lasix 20mg IV (3) Failure to thrive Code(s): [id number] - Status: Chronic Qualifiers: Failure to thrive age range: in adult Qualified Code(s): R62.7 - Adult failure to thrive Comment: alb 2.5, globulin only 1.7 (4) CKD (chronic kidney disease), stage III Code(s): N18.3 - CHRONIC KIDNEY DISEASE, STAGE 3 (MODERATE) Status: Chronic (5) Chronic anemia Code(s): D64.9 - ANEMIA, UNSPECIFIED Status: Chronic (6) Colitis, CMV Code(s): A08.39 - OTHER VIRAL ENTERITIS; B25.9 - CYTOMEGALOVIRAL DISEASE, UNSPECIFIED Status: Chronic Comment: history off. Off of Valcyte due to BM suppression (7) Myelodysplasia (myelodysplastic syndrome) Code(s): D46.9 - MYELODYSPLASTIC SYNDROME, UNSPECIFIED Status: Chronic (8) Physical deconditioning Code(s): R53.81 - OTHER MALAISE Status: Chronic Comment: PT/OT for mobilization, back to rehab after acute conditions stabilized (9) Protein-calorie malnutrition, severe Code(s): E43 - UNSPECIFIED SEVERE PROTEIN-CALORIE MALNUTRITION Status: Chronic (10) SLE (systemic lupus erythematosus) Code(s): M32.9 - SYSTEMIC LUPUS ERYTHEMATOSUS, UNSPECIFIED Status: Chronic Qualifiers: Systemic lupus erythematosus type: unspecified Systemic lupus erythematosus organ involvement: unspecified Qualified Code(s): M32.9 - Systemic lupus erythematosus, unspecified Comment: Stable, no acute flare, on plaquenil, prednisone - Plan cont current plan of care, plan discussed w/ family, PT/OT, security services manager * . OOH DNR signed, pt changed to comfort care, awaiting UA and UCx.
[2018-01-10 14:56] VITALS: BP 101/55
[2018-01-10 15:09] LABS: Bilirubin Small (Negative); Blood, Urine Moderate (Negative); Glucose, Urine (Dipstick) Negative (Negative); Leukocyte Moderate (Negative); Nitrite Negative (Negative); Protein, Urine (Dipstick) 100 mg/dL (Neg-Trace); Specific Gravity, Urine 1.025 (1.005-1.030); Urobilinogen 0.2 mg/dL (0.2-1.0); pH, Urine 6.5 (5.0-9.0)
[2018-01-10 15:14] LABS: Clarity Cloudy (Clear)
[2018-01-10 15:21] LABS: Other Microscopic Description Less than 2 mL rec'd
[2018-01-10 15:22] LABS: Bacteria/HPF 4+ HPF (None Seen); Hyaline Casts/LPF NONE SEEN LPF (0-3 Hyaline)
[2018-01-15] MEDS ORDERED: DARBEPOETIN ALFA IN POLYSORBAT 60 MCG SC SCH (09:00)
== END 2018-01-10 17:24 | disposition hospice, inpatient (51) | DRG 682 ==
LOC: ERS 11:31 → 2NO 13:40
PROVIDERS: ADMIT Internal Medicine Infectious Disease; ATTEND Internal Medicine Infectious Disease
DX: N17.9 Acute kidney failure, unspecified (principal); E43 Unspecified severe protein-calorie malnutrition; E87.2 Acidosis; A08.39 Other viral enteritis; B25.8 Other cytomegaloviral diseases; R62.7 Adult failure to thrive; N18.3 Chronic kidney disease, stage 3 (moderate); E86.0 Dehydration; D64.89 Other specified anemias; E88.09 Other disorders of plasma-protein metabolism, not elsewhere classified; M19.90 Unspecified osteoarthritis, unspecified site; R60.9 Edema, unspecified; D46.9 Myelodysplastic syndrome, unspecified; M32.9 Systemic lupus erythematosus, unspecified; I12.9 Hypertensive chronic kidney disease with stage 1 through stage 4 chronic kidney disease, or unspecified chronic kidney disease; Z68.22 Body mass index [BMI] 22.0-22.9, adult
CPT/HCPCS: 36415; 36416; 51701; 71045; 76705; 80053; 81001; 82140; 82533; 82550; 82553; 83690; 83735; 84443; 84484; 85025; 87077; 87086; 87186; 93005; 96361; 96374; G8978-GP-CN; G8979-GP-CL; G8987-GO-CM; G8988-GO-CL; G8996-GN-CI; G8997-GN-CI; J1100; J1720; J1940; S0028

== ENCOUNTER 2018-01-10 17:25 | Inpatient (IN) | payer OTHER ==
[2018-01-10] MEDS ORDERED: Lorazepam 2 MG/ML VIAL SLOW IVP PRN (17:54)
[2018-01-10 18:16] VITALS: BMI 22.4
[2018-01-12 00:50] VITALS: BP 89/68; TEMP 96.4
--- NOTE | 2018-01-15 09:57 | DS ---
HOSPITAL COURSE: This is a 72-year-old female who was admitted to hospice for severe deconditioning and renal failure, sepsis, as well as endocarditis and obstructive uropathy. The patient had chronic failure to thrive. At this time, the patient was admitted for weakness. The patient had severe dec onditioning. The patient passed at 4:55 a.m. on 01/12/2018. Findings were discussed with the family . Disposition was to the home.
== END 2018-01-12 04:55 | disposition expired | DRG 951 ==
LOC: 2NO 17:25 → ONC 19:17
PROVIDERS: ADMIT Internal Medicine Nephrology; ATTEND Internal Medicine Nephrology
DX: Z51.5 Encounter for palliative care (principal); A41.9 Sepsis, unspecified organism; E43 Unspecified severe protein-calorie malnutrition; I38 Endocarditis, valve unspecified; N17.9 Acute kidney failure, unspecified; N13.9 Obstructive and reflux uropathy, unspecified; R62.7 Adult failure to thrive; R53.1 Weakness; Z66 Do not resuscitate; R68.0 Hypothermia, not associated with low environmental temperature; E86.0 Dehydration; N18.3 Chronic kidney disease, stage 3 (moderate); D46.9 Myelodysplastic syndrome, unspecified; Z68.22 Body mass index [BMI] 22.0-22.9, adult; M32.9 Systemic lupus erythematosus, unspecified; R53.81 Other malaise; Z88.2 Allergy status to sulfonamides; Z88.8 Allergy status to other drugs, medicaments and biological substances
CPT/HCPCS: J2060; J2270